=== PATIENT | female | born 1995 | race Caucasian/White ===

== ENCOUNTER 2022-11-16 10:05 | Outpatient (OUT) | payer BC, SELFPAY ==
--- NOTE | 2022-11-16 | US_ITS ---
The [address] [address] Patient Name: CUCO THOMAS MRN: [id number] date: 1995 Sex: F Assigned Patient Location: US Current Patient Location: Accession/Order Number: [id number] Exam Date: 11/16/2022 10:08 Report Date: 11/17/2022 22:05 At the request of: CHEYENNE WHITT Procedure: US OB transvaginal EXAMINATION: US OB transvaginal HISTORY: MISSED MENSES COMPARISON: No relevant comparison available. FINDINGS: GESTATIONAL SAC: Present and normal appearing. YOLK SAC: Present and normal appearing. POLE: Present and normal appearing. CARDIAC: Present. UTERUS: Normal size and appearance. OVARIES: Right: Normal. Left: Contains a 2.7 cm hypoechoic area, likely corpus luteal cyst. CERVIX: 4.1 cm in length and closed. CUL-DE-SAC: Normal. OTHER: None. AGE BY LMP: 8 weeks 5 days RAKEL BY LMP: 06/23/2023 AGE BY US CRL: 8 weeks 0 days RAKEL BY US CRL: 06/28/2023 US/US OB transvaginal IMPRESSION: 1. Single live intrauterine . Electronically authenticated by: BRITTANIE RAMOS Date: 11/17/2022 22:05
== END 2022-11-16 10:06 | disposition home or self-care (01) ==
LOC: US 10:06
PROVIDERS: Visit Provider Obstetrics & Gynecology
DX: Z34.91 Encounter for supervision of normal pregnancy, unspecified, first trimester (principal)
CPT/HCPCS: 76817

== ENCOUNTER 2022-12-04 16:42 | Outpatient (OUT) | payer BC, SELFPAY ==
[2022-12-04 17:04] LABS: Basophils Percent Auto 0.6 % (0.2-2.0); Eosinophils Absolute Auto 0.1 10^3/uL (0.0-0.7); Eosinophils Percent Auto 0.9 % (0.9-7.0); Hematocrit 37.6 % (36.0-48.0); Hemoglobin 12.7 g/dL (12.0-16.0); Immature Granulocytes Abs Auto 0.01 10^3/uL (0.00-0.03); Immature Granulocytes Pct Auto 0.1 % (0.0-0.5); Lymphocytes Absolute Auto 1.6 10^3/uL (1.2-3.8); Lymphocytes Percent Auto 23.9 % (20.5-60.0); Mean Corpuscular HGB Conc 33.8 g/dL (29.9-35.2); Mean Corpuscular Hemoglobin 29.7 pg (26.7-34.0); Mean Corpuscular Volume 87.9 fL (81.0-99.0); Mean Platelet Volume 10.2 fL (9.5-13.5); Monocytes Absolute Auto 0.5 10^3/uL (0.3-0.8); Monocytes Percent Auto 7.5 % (1.7-12.0); Neutrophils Absolute Auto 4.5 10^3/uL (1.4-6.5); Platelet Count 267 10^3/uL (150-450); Red Blood Count 4.28 10^6/uL (4.20-5.40); Red Cell Distribution Width 12.8 % (11.0-15.0); White Blood Count 6.8 10^3/uL (4.0-11.0)
[2022-12-04 17:32] LABS: Estimated Average Glucose 97 mg/dL
[2022-12-04 17:41] LABS: Thyroid Stimulating Hormone 1.333 uIU/mL (0.358-3.740)
[2022-12-06 06:08] LABS: HBsAg Screen Negative (Negative); HCV Ab Non Reactive (Non Reactive); HIV Ab/p24 Ag Screen Non Reactive (Non Reactive); Rubella Antibodies, IgG 2.22 index (Immune >0.99)
[2022-12-06 11:09] LABS: Rapid Plasma Reagin, Quant Non Reactive titer (NonRea<1:1)
== END 2022-12-04 16:43 | disposition home or self-care (01) ==
LOC: LAB 16:43
PROVIDERS: Visit Provider Obstetrics & Gynecology
DX: N92.6 Irregular menstruation, unspecified (principal)
CPT/HCPCS: 36415; 83036; 84443; 85025; 86592; 86762; 86803; 86850; 86900; 86901; 87086; 87340; 87389

== ENCOUNTER 2023-01-16 12:40 | Outpatient (OUT) | payer BC, SELFPAY ==
[2023-01-18 02:07] LABS: Gest. Age on Collection Date 16.3 weeks (.); Gestat. Age Based On As provided (.); Insulin Dep Diabetes No (.); Maternal Age At EDD 29.6 yr (.); OSBR Risk 1 IN 10000 (.); Results Report (.)
== END 2023-01-16 12:41 | disposition home or self-care (01) ==
LOC: LAB 12:41
PROVIDERS: Visit Provider Obstetrics & Gynecology
DX: Z34.92 Encounter for supervision of normal pregnancy, unspecified, second trimester (principal)
CPT/HCPCS: 36415; 82105

== ENCOUNTER 2023-02-14 16:57 | Outpatient (OUT) | payer BC, SELFPAY ==
--- OUTSIDE RECORDS SUMMARY | 2023-02-14 17:00 | XMS_ITS | CCD ---
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 Name Role Phone FANNY GROSS (WIRELESS SALES ASSOCIATE) Unavailable Unavailab le MOSNEAFANNY Griffin (WIRELESS SALES ASSOCIATE) Unavailable Unavailab le IMCA Unavailable Unavailable FANNY GROSS E Unavailable Unavailable Sherri CHEUNG Primary Care Physician AMBAR MCGRAW Admitting Unavailable AMBAR MCGRAW [facility]ending [facility] Ferrari Primary Care Unavailable AMBAR MCGRAW Consulting Unavailable MD Zeny Hayes Attending Unavailable MD Zeny Hayes Admitting Unavailable Gorge Castro Attending Unavailable MD Zeny Hayes Attending Unavailable MD Zeny Hayes Attending Unavailable MD Zeny Hayes Admitting Unavailable CHEYENNE WHITT Attending Unavailable Allergies Allergy Classification Reported Allergen(s) Allergy Type Date of Onset Reaction(s) Facility (2 sources) Sulfonamides (Antibiotic); Translations: [SULFA (SULFONAMIDE ANTIBIOTICS)] Propensity to adverse reactions to drug (disorder) 7 [facility] Repository (7 sources) Sulfonamides (Antibiotic); Translations: [sulfa drugs] Drug allergy [facility] (1 source) Sulfonamides (Antibiotic) Drug allergy (disorder) [facility] Repository Medications Current Medications Medication Drug Class(es) Dates Sig (Normalized) Sig (Original) clotrimazole 10 mg/ml topical cream (6 sources) Azole Antifungal Start: 12-26-2021 clotrimazole Top 1% Crm 1 lenin, Topical, BID, 24 gram, Refill(s) 0, [id number], 175, cm, 12/26/21 13:50:00 EST, Height/Length Dosing, 91.7, kg, 12/26/21 13:50:00 EST, Weight Dosing Start Date: 12/26/21 Status: Ordered Multivitamins with Vitamin B Complex, Vitamin C, Minerals and L-Methylfolate oral capsule (6 sources) Start: 05-27-2020 Multivitamins with Vitamin B Complex, Vitamin C, Minerals and L-Methylfolate oral capsule 1 cap(s), Oral, Daily, 30 cap(s), Refill(s) 0 Start Date: 05/27/20 Status: Ordered Problems Active Problems Problem Classification Problem Date Documented Date Episodic/Chronic Administrative/social admission (6 sources) Administrative reason for encounter 08-16-2020 Episodic Menstrual disorders (6 sources) 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 Nonmalignant breast conditions (14 sources) Pain of breast; Translations: [Mastodynia] Onset: 12-26-2021 Episodic Other nutritional; endocrine; and metabolic disorders (8 sources) Overweight in adulthood with body mass index of 25 or more but less than 30; Translations: [Body mass index (BMI) 29.0-29.9, adult] Onset: 12-26-2021 Episodic Other nutritional; endocrine; and metabolic disorders (6 sources) Body mass index 25-29 - overweight 08-17-2020 Episodic Other and delivery including normal (6 sources) 05-27-2020 Episodic Other screening for suspected conditions (not mental disorders or infectious disease) (4 sources) Encounter for screening for malignant neoplasm of cervix; Translations: [ENC SCREENING MALIG NEOPLASM CERV] Onset: 05-14-2022 Episodic Screening and history of mental health and substance abuse codes (2 sources) H/O: Disorder; Translations: [Personal history of nicotine dependence] Onset: 12-26-2021 Episodic Substance-related disorders (6 sources) Smoker 11-16-2019 Chronic Comment on above: Added secondary to d ocumentation in Social History. Unclassified (1 source) Unknown / UNK(Unknown) Onset: 11-12-2016 Unclassified (18 sources) Patient encounter status 05-27-2020 Past or Other Problems Problem Classification Problem Date Documented Da te Episodic/Chronic Other upper respiratory infections (2 sources) Acute pharyngitis, unspecified; Translations: [Acute pharyngitis, unspecified] Onset: 11-12-2016 Episodic Results Test Name Value Interpretation Reference Range Facility ED Note-Physicianon 11-12-19 ED Note-Physician Basic Information Time Seen: Elena PANDEY Bud Vega 11/04/2022 21:19 Chief Complaint Pt reports she was using an apple aurelia around 1100 and cut left middle finger with the aurelia. lac to middle finger. Pt reports gauze is stuck to lac. Pt reports 7 wks and is UTD on tdap from 3 yrs ago. History of Present Illness 27-year-old female presents ED with complaint of fingertip avulsion of left middle finger. Patient reports that she was using an apple aurelia today at about 1100, caught her tip of her left middle finger. Patient reports partial avulsion of the left middle finger nail as well as avulsion of the soft tissue of the distal left middle finger. Patient reports that she did clean this thoroughly with soap and water and dressed it with a piece of gauze. Patient reports that she went to change the gauze dressing this evening and the gauze was stuck to her finger. At this point, patient became concerned and presented the ED. Patient denies any injury to any other part of her body. Patient is currently 7 weeks . Patient reports that she is up-to-date on her Tdap having received the vaccination 3 years ago. Review of Systems Full 10 system ROS performed. Pt denies symptoms except as noted above in the HPI. Physical Exam Vitals & Measurements T: 36.6 ?C(Oral) HR: 79(Peripheral) RR: 16 BP: 162/85 SpO2: 99% HT: 173 cm WT: 90.6 kg BMI: 30.27 General: Pt is in NAD, nontoxic appearing Skin: Pt skin is warm and dry, no rashes or lesions appreciated HEENT: Atraumatic, normocephalic. Pulmonary: Breathing normally, no respiratory distress Cardiovascular: Peripheral perfusion intact Musculoskeletal: Small avulsion of distal left middle finger as well as the tip of the nail. Nail cuticle is intact. Neurological: Pt is alert and oriented. Psychiatric: Pt is cooperative, communicative, appropriately reactive Medical Decision Making Number and Complexity of Problems Differential Diagnosis: [] [facility] Data External documents reviewed: Not applicable My EKG interpretation: Not applicable My CT interpretation: Not applicable My X-ray interpretation: Not applicable My Ultrasound interpretation: Not applicable Decision rules/scores evaluated: Not applicable Discussed with: Not applicable Treatment and Disposition ED Course: Patient presents ED with complaint of a distal fingertip avulsion. Patient fingertip was soaked in saline, gauze was removed easily after soaking. Was able to use a tourniquet to stop patient oozing of blood, avulsed area was able to be sealed with Dermabond. Due to the extended period of time that the wound is open, I did give patient dose of Keflex as well as a prescription for Keflex. Return precautions to ED were discussed. Follow-up with PCP for wound reevaluation discussed. Patient questions answered. Patient discharged home. Shared decision making: As above Code status: Not addressed during this visit Assessment/Plan Fingertip avulsion (S61.209A: Unspecified open wound of unspecified finger without damage to nail, initial encounter) Orders: cephalexin, 500 mg = 1 cap(s), Cap, Oral, Once, Stop date 11/04/22 22:09:00 EDT, STAT, Start date 11/04/22 22:09:00 EDT, 11/04/22 22:09:00 EDT cephalexin, 500 mg = 1 cap(s), Oral, q12hr, X 7 day(s), # 14 cap(s), Refills(s) 0, Pharmacy: [facility] #[id number], 173, cm, 11/04/22 21:16:00 EDT, Height/Length Dosing, 90.6, kg, 11/04/22 21:16:00 EDT, Weight Dosing Disposition Plan Patient Discharge Condition Stable Discharge Disposition To home Discharge Prescription List Prescriptions cephalexin 500 mg Cap, 500 mg= 1 cap(s), Oral, q12hr Follow-up With When Contact Information Sherri CHEUNG In 3 days 11/07/2022 EDT [address] [facility] [place] [phone] Business (1) Additional Instructions: Call the office of your primary care doctor to arrange for follow-up within the above-stated timeframe. Follow-up with your primary care doctor about this ED visit. You should review your labs, imaging, and diagnoses from this ED visit with your primary care physician. If you were prescribed medications you should discuss possible side-effects and drug interactions with your pharmacist. Call 911 or go to the nearest Emergency Department if you develop any new or worsening symptoms. Patient Education Deep Skin Avulsion Attestation Patient seen and evaluated by the physician assistant operator. Attending physician was present in the emergency department and supervised care. This visit was performed by both the physician and an APC. I performed all aspects of the MDM as documented. This report was transcribed using voice recognition software. Every effort was made to ensure accuracy, however, inadvertently computerized biochemistry teacher mistakes may be present. Appropriate healthcare PPE was used in evaluating this patient. The patient was placed in a mask. The healthcare provider was wearing mask, gloves, and util (more content not included)... [facility] Comment on above: Result Comment: Elec tronically Signed By: Bud Parker PA-C\.br\Date and Time Signed: 11/04/22 22:25 EDT\.br\Electronically Co-Signed By: Gorge Castro MD\.br\Date and Time Co-Signed: 11/11/22 20:46 EDT Discharge Instructionson Discharge Instructions [id number]:12 7 [facility] ED Clinical Summaryon 2022 ED Clinical Summary (Inserted Image. Marylu ble to display) [place] [id number] ED Clinical Summary Person Information Name: CUCO THOMAS [facility] Age: 27 Years : 1995 Sex: Female Language: Nauruan PCP: Sherri CHEUNG MD Marital Status: Single Visit Id: Visit Reason: Finger pain-swelling; Finger laceration; FINGER LACERATION Speciality: Acuity: 4 Enc Type: Emergency Med Service: Emergency Arrival: 11/04/2022 21:10:12 Discharge: 11/04/2022 22:37:51 LOS: 000 01:27 Checkin: 11/04/2022 21:10:12 Checkout: 11/04/2022 22:37:51 Dispo Type: Home (Routine DC) EVENTS: Event Name Event Status Request Date/Time Start Date/Time Complete Date/Time Arrive Complete 11/04/2022 21:10:12 11/04/2022 21:10:12 11/04/2022 21:10:12 Document Home Meds Request 11/04/2022 21:10:12 Triage Complete 11/04/2022 21:10:12 11/04/2022 21:16:45 11/04/2022 21:16:45 Bed Assign Complete 11/04/2022 21:12:37 11/04/2022 21:12:37 11/04/2022 21:12:37 Dr Exam Complete 11/04/2022 21:12:37 11/04/2022 21:19:51 11/04/2022 21:19:51 RN Exam Complete 11/04/2022 21:12:37 11/04/2022 21:17:58 11/04/2022 21:17:58 Patient Care Complete 11/04/2022 21:14:34 11/04/2022 22:15:31 Registration Complete 11/04/2022 21:19:51 11/04/2022 21:29:13 11/04/2022 21:29:13 Reg Complete Request 11/04/2022 21:29:13 Reg Bed Request Complete 11/04/2022 21:29:13 11/04/2022 21:29:13 11/04/2022 21:29:13 Meds Admin Complete 11/04/2022 22:09:23 11/04/2022 22:33:10 Discharge Complete 11/04/2022 22:10:40 11/04/2022 22:37:58 11/04/2022 22:37:58 Transfer Complete 11/04/2022 22:37:58 11/04/2022 22:37:58 11/04/2022 22:37:58 ADDRESS: [address] [place] [id number] PHYS DOC NOTES: MEDICAL INFORMATION: Prescriptions Given: New Medications [facility] #[id number], [address] [place], [place] [id number], [phone] cephalexin (cephalexin 500 mg Cap) 1 Capsules By Mouth every 12 hours for 7 Days. Refills: 0. Medications to Continue with No Changes Other Medications clotrimazole topical (clotrimazole Top 1% Crm) 1 Application Topical 2 times a day. Refills: 0. fluconazole (fluconazole 200 mg Tab) 1 Tablets By Mouth Once. Refills: 0. multivitamin, ( Multivitamins with Vitamin B Complex, Vitamin C, Minerals and L-Methylfolate oral capsule) 1 Capsules By Mouth every day. PATIENT EDUCATION INFORMATION: Instructions: Deep Skin Avulsion Follow up: With: Address: When: Sherri CHEUNG [address] [place] [address] [address], [place] [address] Business (1) In 3 days 11/07/2022 Comments: Call the office of your primary care doctor to arrange for follow-up within the above-stated timeframe. Follow-up with your primary care doctor about this ED visit. You should review your labs, imaging, and diagnoses from this ED visit with your primary care physician. If you were prescribed medications you should discuss possible side-effects and drug interactions with your pharmacist. Call 911 or go to the nearest Emergency Department if you develop any new or worsening symptoms. DIAGNOSIS: Fingertip avulsion [facility] ED Patient Education Noteon 11-05-2022 ED Patient Education Note Dermatology Deep Skin Avulsion A deep skin avulsion is a type of open wound. It often results from a severe injury (trauma) that tears away all layers of the skin or an entire body part. The areas of the body that are most often affected include the face, lips, ears, nose, and fingers. A deep skin avulsion may make structures below the skin become visible. You may be able to see muscle, bone, nerves, and blood vessels. A deep skin avulsion can also damage important structures beneath the skin. These include bones, tendons, nerves, or blood vessels. What are the causes? This condition may be caused by an injury, such as: ? Being crushed. ? Falling against a jagged surface. ? An animal bite. ? A gunshot wound. ? A severe burn. ? Being dragged, such as in a bicycle or motorcycle accident. What are the signs or symptoms? Symptoms of this condition include: ? Pain. ? Numbness. ? Swelling. ? Bleeding, which may be heavy. How is this diagnosed? This condition may be diagnosed with a medical history and physical exam. You may also have X-rays done. How is this treated? Treatment for this condition depends on how large and deep the wound is and where it is located. Treatment usually starts with: ? Stopping the bleeding. ? Washing out the wound with a germ-free (sterile) solution. After initial treatment, the wound may be closed or left open to heal. ? Wounds that are small and clean may be closed with stitches (sutures). ? Wounds that cannot be closed with sutures may be covered with a piece of skin (graft) or your own skin flap. ? Wounds that are hard to close or that may become infected may be left open. These wounds heal over time. You may also be treated with medicine, such as: ? Antibiotic medicine. ? Pain medicine. ? Tetanus shot. Follow these instructions at home: Medicines ? If you were prescribed an antibiotic medicine, take or apply it as told by your health care provider. Do not stop taking or using the antibiotic even if your condition improves. ? Take jqdz-rln-jalzqkk and prescription medicines only as told by your health care provider. ? If you were prescribed a pain medicine, take it 30 minutes or more before you do any wound care, or as told by your health care provider. ? Ask your health care provider if the medicine prescribed to you requires you to avoid driving or using machinery. Wound care ? Follow instructions from your health care provider about how to take care of your wound. Make sure you: ? Wash your hands with soap and water for at least 20 seconds before and after you change your bandage (dressing). If soap and water are not available, use hand supervisor laboratory. ? Change your dressing as told by your health care provider. ? Leave sutures, skin glue, or adhesive strips in place. These skin closures may need to stay in place for 2 weeks or longer. If adhesive strip edges start to loosen and curl up, you may trim the loose edges. Do not remove adhesive strips completely unless your health care provider tells you to do that. ? Clean the wound each day, or as told by your health care provider: ? Wash the wound with mild soap and water. ? Rinse the wound with water to remove all soap. ? Pat the wound dry with a clean towel. Do not rub it. ? Cover the wound with a clean dressing. ? Keep your dressing clean and dry. Do not take baths, swim, use a hot tub, or do anything that would put your wound under water until your health care provider approves. ? Check your wound every day for signs of infection. Check for: ? More redness, swelling, or pain. ? More fluid or blood. ? Warmth. ? Pus or a bad smell. ? Do not scratch or pick at the wound. General instructions ? Raise (elevate) the injured area above the level of your heart while you are sitting or lying down. ? Do not use any products that contain nicotine or tobacco, such as cigarettes, e-cigarettes, and chewing tobacco. These may delay wound healing. If you need help quitting, ask your health care provider. ? Eat a healthy diet to help your wound heal. This includes eating foods rich in protein, vitamin A, and vitamin C. ? Keep all follow-up visits. This is important. Contact a health care provider if: ? You have pain that does not get better with medicine. ? You have any of these signs of infection: ? More redness, swelling, or pain around your wound. ? More fluid or blood coming from your wound. ? A fever. ? You got a tetanus shot and you have swelling, severe pain, redness, or bleeding at the injection site. ? You are nauseous or you vomit. ? You notice something coming out of the wound, such as wood or glass. Get help right away if: ? You have a red streak going away from your wound. ? A wound that was closed breaks open. ? The wound is bleeding, and the bleeding does not stop with gentle pressure. ? You have trouble breathing. ? The wound is on your hand or foot a (more content not included)... [facility] ED Patient Summaryon 023 ED Patient Summary (Inserted Image. Marylu ble to display) [place] [id number] Patient Discharge Instructions Person Information Name: CUCO THOMAS Age: 27 Years Arrival Date: 11/04/2022 21:10:12 Discharge Diagnosis: Fingertip avulsion Primary Care Physician: Sherri CHEUNG MD Provider Information Primary Provider: [facility] [employer] [facility] Person:Elena PANDEY, Bud Ferrari The exam and treatment you received in the Emergency Department were for an urgent problem and are not intended as complete care. It is important that you follow up with a doctor, nurse practitioner, or physician?s assistant operator for ongoing care. If your symptoms become worse or you do not improve as expected and you are unable to reach your usual health care provider, you should return to the Emergency Department. We are available 24 hours a day. CUCO THOMAS has been given the following list of patient education materials, prescriptions and follow-up instructions: Follow-up Instructions: With: Address: When: Sherri JONATAN [address] [place] [address] [address], [place] [address] Business (1) In 3 days 11/07/2022 Comments: Call the office of your primary care doctor to arrange for follow-up within the above-stated timeframe. Follow-up with your primary care doctor about this ED visit. You should review your labs, imaging, and diagnoses from this ED visit with your primary care physician. If you were prescribed medications you should discuss possible side-effects and drug interactions with your pharmacist. Call 911 or go to the nearest Emergency Department if you develop any new or worsening symptoms. In the event that this physician does not participate in your insurance network, please consult with your insurance company to find a nearby participating provider. Patient Education Materials: Deep Skin Avulsion A MESSAGE TO ALL PATIENTS REGARDING OPIOIDS PRESCRIPTION OPIOIDS: WHAT YOU NEED TO KNOW Prescription opioids can be used to help relieve fugbuzfb-az-myhiyw pain and are often prescribed following a surgery or injury, or for certain health conditions. These medications can be an important part of the treatment but also come with serious risks. It is important to work with your healthcare provider to make sure you are getting the safest, most effective care. WHAT ARE THE RISKS AND SIDE EFFECTS OF OPIOID USE? Prescription opioids carry serious risks of addiction and overdose, especially with prolonged use. An opioid overdose, often marked by slowed breathing, can cause sudden . The use of prescription opioids can have a number of side effects as well, even when taken as directed: ? Tolerance?meaning you might need to take more of the medication for the same pain relief ? Physical dependence?meaning you have symptoms of withdrawal when a medication is stopped ? Increased sensitivity to pain ? Constipation ? Nausea, vomiting, and dry mouth ? Sleepiness and dizziness ? Confusion ? Depression ? Low levels of testosterone that can result in lower sex drive, energy, and strength ? Itching and sweating RISKS ARE GREATER WITH: ? History of drug misuse, substance use disorder, or overdose ? Mental health conditions (such as depression or anxiety) ? Sleep apnea ? Older age (65 years and older) ? Avoid alcohol while taking prescription opioids. Also, unless specifically advised by your health care provider, medications to avoid include: ? Benzodiazepines (such as Xanax or Valium) ? Muscle relaxants (such as Soma or Flexeril) ? Hypnotics (such as Ambien or Lunesta) ? Other prescription opioids KNOW YOUR OPTIONS Talk to your health care provider about ways to manage your pain that don?t involve prescription opioids. Some of these options may actually work better and have fewer risks and side effects. Options may include: ? Pain relievers such as acetaminophen, ibuprofen, and naproxen ? Some medication that are also used for depression or seizures ? Physical therapy and exercise ? Cognitive behavioral therapy, a psychological, goal-directed approach, in which patients learn how to modify physical, behavioral, and emotional triggers of pain and stress. IF YOU ARE PRESCRIBED OPIOIDS FOR PAIN: ? Never take opioids in greater amounts or more often than prescribed. ? Follow up with your primary health care provider. o Work together to create a plan on how to manage your pain. o Talk about ways to help manage your pain that don?t involve prescription opioids. o Talk about any and all concerns and side effects. ? Help prevent misuse and abuse o Never sell or share prescription opioids. o Never use another person?s prescription opioids. ? Store prescription opioids in a secure place and out of reach of others (this may include visitors, children, friends, and family). ? Safely (more content not included)... [facility] Consent for Treatmenton 10-13 Consent for Treatment [id number]:127 [facility] PAP ACOG PANEL 2: 21 to 29on 05-21-2022 . . Normal [facility] Comment on above: Performed By: #### [id number] #### [facility] [address] [place] [address] Dr. Jewels Looney Age Gdln ACOG Testing - [facility] Comment on above: Performed By: #### [id number] #### [facility] [address] [place] [address] Dr. Jewels Looney DIAGNOSIS: Comment Normal [facility] Comment on above: Result Comment: NEGA TIVE FOR INTRAEPITHELIAL LESION OR MALIGNANCY. Performed By: #### [id number] #### [facility] [address] [place] [address] Dr. Jewels Looney Methodology: Comment Normal [facility] Comment on above: Result Comment: This liquid based ThinPrep(R) pap test was screened with the use of an image guided system. Performed By: #### [id number] #### [facility] [address] [place] [address] Dr. Jewels Looney Note: Comment Normal [facility] Comment on above: Result Comment: The Pap smear is a screening test designed to aid in the detection of premalignant and malignant conditions of the uterine cervix. It is not a diagnostic procedure and should not be used as the sole means of detecting cervical cancer. Both false-positive and false-negative reports do occur. . Performed By: #### [id number] #### [facility] [address] [place] [address] Dr. Jewels Looney Performed by: Comment Normal [facility] Comment on above: Result Comment: Rosita Haines, Stencil Maker (ASCP) Performed By: #### [id number] #### [facility] [facility] [address] [place] [address] Dr. Jewels Looney Reflex Criteria: Comment [facility] Comment on above: Result Comment: The HPV DNA reflex criteria were not met with this specimen result therefore, no HPV testing was performed. . Performed By: #### [id number] #### [facility] [address] [place] [address] Dr. Jewels Looney Specimen adequacy: Comment Normal [facility] Comment on above: Result Comment: Sati sfactory for evaluation. Endocervical and/or squamous metaplastic cells (endocervical component) are present. Performed By: #### [id number] #### [facility] [address] [place] [address] Dr. Jewels Looney Reminderson 01-19-2022 Reminders - From: Hayes Moura MD To: [facility] - Clinical; Sent: 01/16/2022 15:19:01 EST Show up: 01/16/2022 15:16:00 EST Subject: Ambulatory Reminder Due Date/Time: 01/17/2022 15:15:00 EST Rocio albicans (a type of fungus) presumptively isolated after extended culturing. Awaiting final results. Pt may come after final results in a few days if she is continuing to have symptoms. Results: Date Result Type Ind Result Name 12/26/2021 14:35 EST [facility] POS Fungus Culture Attempted to contact pt regarding provider message below, unable to lvm. If pt call's back please transfer to me to discuss. Spoke with pt regarding provider message below. Advised culture results. Pt states understanding and declines any questions or concerns. Normal [facility] Coding Summary.on 12-31-2021 Coding Summary. [id number] Gh0bWw +PGhlYWQ+TD6LCMNtR87vcHWxy G9LX7gYWN8YMOJLNBZNSV5YAR7 epDV5BKlhX6TvypDn WcbauJAbPM03IMt4YXV8rJjgTT jsiG0qdBIdO6i4FzRaUR84xN81 VTllZGGjHnB7TtIlrgefaCDk M5qvPkVlyIXuZip+PHRhYmxlIH qhGBTsANhkRYXlBzUmpDqkWN2d Bd8vSCNlCHXpoLrqlFSmDtZf z6wzLGGfFIovLL4xiHhtC2RreT Q2VXJaz0l1Ah96bDS+PHRkIHN0 eXoxEEivc192ZhWzm0mcEVI3 oAGaYObhMIH8W88ug0H8PBFnKI DeOMY4oEM2qF2ltJctsitfU2Un kKOvHxX9TJW4pLOimS2pmTbl uneucO6jOpr+K93OWY1EZAYBET 0ICse8Q9VmIgnxaPR+UU80MLZm SQ88dGKyhXJks3kwnNi9FaEh LPVcHWQ5rEaiNUuwp9NyXAEcW4 8elIHlh9N9YXAxtYevnHYaXtBd fCH5cP6dJRpnzqokq9jubfuo Zxazw5shop34gG08U08mEVuePC PrKQW0SDJuFGQsrLoais6jbW1i Ii8+SNuxn6wwx4zivAg6JlIj ICIblzHtxDhcQJG1j2MrRy32H2 AuhHoxh6WcXmw3fz15qJRuw5G2 rYQ1ZGlvYQZwpG8qPPrwOcS9 DPPbAeLojS54gYZfJEqqSy0vcW kgwVjlUH1zNWAdjzllRBKdmY2t FCRhbRCjvFzyEK4kVVIairdt w126ObFmOTJ5NIJejUHnX4BtmC 2zXuWiFHGrXSPjV9PciHOnDXxt E776BKjuJhE9GZYuxkMiG1Fb ZMGgqRcdGoE4p3D2Id7Qs8Mlmp rrSCG3TTtcLBXuTlZfNdFsPeL8 W8RdGid7RUWrcQjnFD3oO4Ji BKRsbxbwmxfvvUJ7YPJbCEWneM 03kAWcNCloOz9mb1M7g203QNNd ZKKdoL19Wz6vtFfwCXMxnBUY qZ9qtrbwl5favdghJqDyONNvJT d2SWz5KPLuiUkqXuHoXMB0PjJ1 PXF0nCXlfP2ooRqokvmwpJ8m Oyc+N14xiR3dAZA7HCQ1uuluJW DfkcPqBF50NS74C0VfMiplePUb bGU+TKFxubMhhClgFB1vUiHw s4hxn0XrYOuuI1XhVSVhJPwqWj r1YYCtJCL6fDO7mS1pUWPnGPui x5H1gLM8K1CzfyHqel3zx2gv GJMtZJykB10qtVQvp1K6XRGygG G0XWWtdMmmYyWksD87Llo+PGNv aLloq3RpIudkh3eht3nxoLs4 ZcHjPOXhotXusBwaKUW7w5JcCo 81R27fIUbhTLXqZAWfQTHuFMPy pJftvk7zaX9sTv9+PGNvbCB3 yKK6fP5gNILtAsF9FFyrG643Bj FsuZFaDbywd6rsg5odhHv2SrHw OFRqsgMwqRqmEEI7e7NiOf37 V90mTJgoGGMpRSGaCLVbLMOskH piqd1xjQ5dZt0+IL5mo8dknj77 yT09aIU+ZMKsBFG7aFrvRItw EOKadL8fGMsaDmP4JBHzFzGdkG 77hRFoBQscHv8prNfppEivUN1x SJAtxysdg331ReEnw8qmDUUe xGUlFCsnDNY4N03ee7H7NIYuGR TnTOP7kXS0gV3peNbsuapvaCKd aSwxknRqeJywRSoySScoG724 IHRvcDsnPlBhdGllbnQgTmFtZT u4X1IbCjs8WRIxgVdzZV3adWEp BBvdNb4apDrniNdhCD2qKWCq yeglo355XcKye4ykZLCweAIpGZ xhWMQ1R49yz5S7BFYjQIVzRHH3 bHN1rT0dhRathucioVWazYru ioPilXkcLIelDCevH758ZGSbtJ trXuRbopZyCDHhlKT4OB55BX23 jLAhp7C0jTR3K5HvFCJtdmtb fipdsWY1PIAaQBAkfA81Ii3vnT hmIu9ePTUdKEU6SNBbzSMoP2On aU0sGrCrNRSoDZCoY3CwnIJu XAbyK068NYkvSfE9ZRZpfjIjO5 QdVQRpnByjTeU1v1Z0Lc3TN3N7 DH88PU59hRWnb3N6rHS3B0Qb XEXnpxfbdcvkzLO3ATJiLRGfjD 82Ek4qeTurCl9mGVJuOJE2SUOs eODhG1YulY3mDlOoRTNaHHYy R9AnzZTmHRftM663TDtzBcH3WP XlsyCvY9OwWWKydHtsUxF4v9M3 An1GYCb3ZX53NV49dCRpd3K3 vYX9M1ChWPWscowizlnauNC9GE VnQGMbqQ83Vq7poGelMq4xXSJk HVW1VHKkqTWzN0VbwM0hQaCd WSDpOYGfR3FzsXVjNGbkV768VZ dpIgX1PCUunsHqD4RzPAQdrCgg IwR2w5D8Gt9TZEKpOO84KAW0 uKA1TJ15CC99I4QsAngiwLHjtA U+PHRhYmxlIHdpZHRoPScxMDAl PtZjyIwxYT5kDt8vLYGsVLDz dTzzwKFrPmDxl5kyPZKnUIvaYT 3zfLyxI2XhdNC3FWApp4e7Zw55 X59qB4PhxKH+IFYamWR5aCG0 lW2vBfBtUiQ8GXvjE690AlPlnN KaHrkyi0nzo9thrZc4BxQ3UQZg qiKmnKdoYQS8g7ByGb30R26w IHdpZHRoPSIxNSUiIHZhbGlnbj 5syW6yVw5+WDWddDZ2fGC5eC0q PeXdUkH2ZMrgX609UoPtpZKh Zrvjp9uqu6pvdEj4HuNfZGTmgn EgeOzoXQD8e7NvNt93N2IclLoi r3ZwAvk3nb96qQZab5Q5aHH6 F1WwBRHhnyhppOEqeAlhQC9tNH MhwruwSVVahG8bDKBjY6m5CbJf TcP1QJruW2DuheQ3GCEtaRIg RCbrLHB5P61ks1L1RESqIILpMJ I4dHO2iU7cvMinrfjzkCWyfOtt fhRkwSbgZNffBKqtM524PWRj zQbiWUQfkC6pMSChmPXxoHqwHV 6oGGFktcuyZcQTSCZJO84CEUKY Y8ZORU4cOtzblJQ+PHRkIHN0 kPywTNzqVHGnqM2aDEWxP9y1Nu HaMsR0QQmjZ4WwROOmqdgcQa55 kD0cUwJjLyG0AHtxH0WhogH6 OTZrdNXsZCwtZMU9S72bn3L7KR KtROYkEHT9dAC0gG8ylMqbspez bGVmdDsgdmVydGljYWwtYWxp Z006OPSouVqtOuO3DlZwHhD5OM U8V8IcPts6XQGciFmxEA4uiHMx OZphDm1zmYwtxEurQD6uADZo xpzpZMSbrW6uFBVkgCEbcZhwBL 8vIYAinyyab852SmLdXAK0MCDj xWAaR5MtmD0oWkAvEQNrFXCy G7XkjCUvRCkmT942RSqzAiB0GM CluxNrK5WyHWYyqIqpMoG8x6A1 Nk2uDYRQEQNnmexyxHV+PHRk OSW1aFzuXUvdWJDzcV7qCZBnB6 g6QnVqFxD4GAzuA9XwYLNwfupi Yk24aD1jBgLmRvI4KGyyT6Fs krB6YICuoFCwZWolHTK4D52ze4 K9CBMoPPJoSNS7jIA0hB7opHck bjogbGVmdDsgdmVydGljYWwt ZFxbA502IYTmeFraXbCudYXwQM wvdGQ+YTRnUZD9wChcMQukMUDg nZ6cAOFrQ6x4QxEvViG1TPpi L7GvIKIreavrCd84tG6jJpKqZb Q9NFxjL7GyelL4IZReqBNyBJjw AXC4C15vp0Z5POTrOMMrZYH1 eZZ1rV8xlMekynlnwYOwpHfils GvfEbsEWdkSJhpD882CKHodZpr LxjzPfOGjv1lNE8sVdctjNU+ LU73wa05X1TrXzthVxh4RNOfZL X2vHJ4zW7rQJHwSLlyh2T6uOW8 Q9PrhnBtzl9ab3ohFNTiGRkd U22inDVzg0O5PNXdzFE9DHLmzE dlFuIfeA56Guw+VVVmyLdow1Wc Jdupx7sai7vgqYi3EvPvJPMk kzBbeUmqKDR7w4BzYt05V36dGS dzJXXgQDLlYFBtLUMtrOdwfl2w tV6jPi3+COHkrXY1vMO3lJ8z BmJjYnF8ZWjpD857JqKvkNBdSq dhe8trf3cynMm4VyNbSXWvxyZa bKzlYCX9b2NrGw35U6JjcGmy v7TfZgl2ju36aTZdj4Q6iTS1Z1 HsWPZaudlhdZCssRdgXN8iLAOq eapeBQVqkQ2hFGJpV4f0MmGg OwI5WXnsO7GrnmD3TNZyoYDbMA HfxUPTrL9mfzvvg8pvfrrxHdLg XIPgYCn8WLv5GFZdeEfnTzFy JES9IhM9MIZ5uUWosQ3keKiyuy lzjB5kYew+HSd1o6gffBWaCY0q vVJ3BU86DV09aYQns8A6yFE7 E4ZoTXTdhtzofxzpzHW1DEPwYA OszA36Mm5jbZslMc3lNUJuHWH4 XJBztRFqB4OceN1jLwFqTWWd WHNoS1WruOQjBMvdG303UXvxXa I2RKIbykNrI9ThTTIoiWrvVtA2 v9B0Ae6XDR05KW83SB20zZPb v0I3hZW4R1IiMRGjfsxfmmebiI N5XUMiOFYuoO28Et4hkKwlRb4w MVHtZAM8DLDhdZOsN4HqyU8w PsKnEUOaFGFbE2AcqJWxTKnuL7 50CKbwWzE3KRTfjoRiZ0ZiEKHa zNijKkK3o9Q7Fo9GIy92HB00 AZ06lDFdb0X5jVS7Y9DdQSEybm stbdnjnEB5CGSeCTOvwQ77Ms5j tSfzJn7iXDRlNIM9VRFmuEKn F1IrjH0bDpZvRHXkQCRnR9DsgH RbJVjeU725JGaySmR9AXXyjcHf D9ZxPWUyhBudPtB6j2W9Ph0S KCdzaxq2G3XbCiblnMG+PC90YW LgGL53uQJwgDGyx4oacMx5BmOg KXMqJPL1xLpvROzlt9YjCJSt Y29s (more content not included)... Normal [facility] Family Medicine Office/Clini c Noteon 12-27-2021 Family Medicine Office/Clinic Note Chief Complaint Rash HPI Staff complaints of Rash on both breast Pt states her daughter had thrush and she is so she believes they are passing it back and forth Onset: 4 days Characteristics:red, itchy slight burning after OTC tried:Baking soda wash, coconut oil Health Maintenance: Pap:Due Last Labs: PHQ: Negative History of Present Illness Cuco is a 26-year-old female who presents today with a bilateral breast rash. - The patient believes her and her daughter are passing thrush back and forth with . - Rash has improved since 12/22/2021 when it began. - She has a burning sensation on both breasts that is on her nipple and spreads out. - The right side is worse than her left. - Her daughter is on antifungal now. - The first round did not cure her thrush. - Started out as a diaper rash and didn't realize it was thrush until she took her to convenient care a few weeks ago. - is going really well. - for 11 months. - Possible the baby may have gotten thrush from using bottles that are not sterilized. - Denies any fever, chills, nausea, or vomiting. - Denies any engorgement of the breasts. - Denies depressed mood and suicidal or homicidal ideation. Review of Systems PHQ Score Initial Depression Screen Score: 0 Negative except as stated in HPI. Physical Exam Vitals & Measurements T: 36.0 ?C(Temporal Artery) HR: 67(Peripheral) RR: 16 BP: 112/72 SpO2: 98% HT: 69 in HT: 175 cm WT: 91.7 kg WT: 201.74 lb BMI: 29.94 General: Patient is alert and oriented x3. She is not in cardiopulmonary distress. Normal affect. Well groomed. Respiratory: Equal bilateral aeration. Clear to auscultations bilaterally. No adventitious breath sounds including no wheezing, rhonchi, or rales. Cardiovascular: Regular rate and rhythm. S1, S2 heard. No murmurs, rubs, or gallops. Breast: Both breasts have lesions but there is ones a few centimeters away from the nipple areas that the patient attributes to probably clawing from baby or accidental bites. She has not scratched those areas herself. Both nipples look symmetrical. Negative for discharge or blood discharge. Breast milk typical in color. No masses were palpated in the bilateral breasts. No tenderness to palpation. Assessment/Plan 1. Nipple pain (N64.4: Mastodynia) - Ordered fluid culture of expressed milk from both breasts. - Will provide topical antifungal. - I have ordered clotrimazole 1%, 3 times per day. - Advised on proper topical antifungal use prior to and after . - Advised her to follow up in 4 weeks if symptoms have not improved. 2. Former smoker (Z87.891: Personal history of nicotine dependence) - Encouraged patient to continue to refrain from smoking. 3. BMI 29.0-29.9,adult (Z68.29: Body mass index [BMI] 29.0-29.9, adult) - Educated patient on healthy fitness, lifestyle and nutrition practices. Documentation services were performed after patient or guardian consented to allow Jef Tobar to record this visit. JEAN CARLOS compensation/benefits specialist and provider reviewed before signing. Completed by: Rosa Isela Rouse/Angeli Ignacio. Pated by Priyanka Mosley, Quality Sem Manager. Follow-up No qualifying data available Problem List/Past Medical History Ongoing Amenorrhea BMI 25.0-25.9,adult Breast pain Dietary counseling Encounter for completion of form with patient Exercise counseling Nipple pain Overweight with body mass index (BMI) of 26 to 26.9 in adult Visit for preventive health examination Historical Smoker Procedure/Surgical History Excision of adenoid (1998). Medications clotrimazole Top 1% Crm, 1 lenin, Topical, BID Multivitamins with Vitamin B Complex, Vitamin C, Minerals and L-Methylfolate oral capsule, 1 cap(s), Oral, Daily, Not taking Allergies sulfa drugs (hives) Social History Alcohol - Denies Alcohol Use, 08/16/2020 Past, Beer, Wine, Liquor, 1-2 times per week, Previous treatment: None. Alcohol use interferes with work or home: No. Drinks more than intended: No. Others hurt by drinking: No. Ready to change: No. Household alcohol concerns: No., 12/26/2021 Sexual Sexually active: Yes., 09/19/2018 Substance Abuse - Denies Substance Abuse, 08/02/2018 Household substance abuse concerns: No., 08/16/2020 Tobacco - Denies Tobacco Use, 08/16/2020 Former smoker, quit more than 30 days ago Tobacco Use:. Never Smokeless Tobacco Use:. Cigarettes, Started age 21.0 Years. Stopped age 21 Years. Household tobacco concerns: No., 12/26/2021 Family History Primary malignant neoplasm of female genital organ: Grandparent. Immunizations Vaccine Date Status Comments influenza virus vaccine, inactivated - Not Given Postpone due to refusal SARS-CoV-2 (COVID-19) mRNA-1273 vaccine 04/16/2020 Recorded influenza virus vaccine, inactivated 11/16/2019 Given diphtheria/pertussis, acel/tetanus ad (more content not included)... [facility] Comment on above: Result Comment: Elec tronically Signed By: Hayes M. Gudimella MD\.br\Date and Time Signed: 12/27/21 15:46 EST\.br\Electronically Co-Signed By: Priyanka Mosley\.br\Date and Time Co-Signed: 12/26/21 22:49 EST RENETTAJosefa 01-02-2017 CNOV Office Visit (AGEXPHUD) [facility] ([id number]) 1995 FDate Time Provider Uocxerqlde80/22/17 2:30 PM FANNY GROSS (DESMOND) AGEXPHUD During your visit today, we recorded the following information about you: Temperature Pulse Blood pressure Weight 98.4 degrees 79/minute 125/75 69.5 kg Height 1.727 Serenity Gross CNP 01/02/2017 2:46 PM SignedPatient is a 21 year old female presenting with sinus complaint. The history isprovided by the patient.Sinus ProblemThis is a new problem. The current episode started 1 to 4 weeks ago (2 weeksago had a cold, congestion, cough, muffled ears, sore throat. Symptoms havemainly resolved, but presents today with increased sinus pressure.). Theproblem occurs constantly. The problem has been gradually worsening. Associatedsymptoms include congestion, coughing and headaches (frontal sinus pressure).Pertinent negatives include no abdominal pain, chest pain, chills, fever,nausea, rash, sore throat or vomiting. Treatments tried: Mucinex for 7 days.The treatment provided no relief.Review of SystemsConstitutional: Negative for chills, fever and malaise/fatigue.HENT: Positive for congestion. Negative for ear pain and sore throat.Eyes: Negative.Respiratory: Positive for cough. Negative for shortness of breath and wheezing.Cardiovascular: Negative for chest pain and palpitations.Gastrointesti nal: Negative for abdominal pain, diarrhea, nausea and vomiting.Skin: Negative for rash.Neurological: Positive for headaches (frontal sinus pressure).Physical ExamConstitutional: She is oriented to person, place, and time and well-developed,well-nouris hed, and in no distress. Vital signs are normal.HENT:Head: Normocephalic and atraumatic.Right Ear: Hearing, external ear and ear canal normal. A middle ear effusion ispresent.Left Ear: Hearing, external ear and ear canal normal. A middle ear effusion ispresent.Nose: Right sinus exhibits frontal sinus tenderness. Right sinus exhibits nomaxillary sinus tenderness. Left sinus exhibits frontal sinus tenderness. Leftsinus exhibits no maxillary sinus tenderness.Mouth/Throat: Uvula is midline, oropharynx is clear and moist and mucousmembranes are normal. No oropharyngeal exudate, posterior oropharyngeal edema,posterior oropharyngeal erythema or tonsillar abscesses.Eyes: Conjunctivae, EOM and lids are normal. Pupils are equal, round, andreactive to light. Right eye exhibits no discharge. Left eye exhibits nodischarge.Cardiovascular : Normal rate, regular rhythm, S1 normal, S2 normal and normalheart sounds. Exam reveals no gallop and no friction rub.No murmur heard.Pulmonary/Chest: Effort normal and breath sounds normal. She has no wheezes.She has no rhonchi. She has no rales.Lymphadenopathy: Head (right side): No submental, no submandibular, no tonsillar, nopreauricular and no posterior auricular adenopathy present. Head (left side): No submental, no submandibular, no tonsillar, nopreauricular and no posterior auricular adenopathy present. She has no cervical adenopathy.Neurological: She is oriented to person, place, and time.Skin: Skin is warm, dry and intact.Psychiatric: Mood, memory, affect and judgment normal.Nursing note and vitals reviewed.BP 125/75 Pulse 79 Temp (Src) 98.4 (Temporal Artery) Ht 5' 8ANDquot;(1.73m) Wt 153 lb 3.2 oz (69.5kg) SpO2 100% BMI 23.30 kg/(m2).-I have reviewed and updated with the patient: allergies, VS, currentmedications, Past Medical History,Past Surgical History,Past Family MedicalHistory, Past Social History.-Patient education provided today.-Discussed with patient medications that are indicated and how to use themedications and what the potential side effects are.- Follow up with PCP in 2-3 days if symptoms progress- Report to ED with any worsening symptoms or life-threatening concerns- Warning signs of worsening condition explained to patient- Patient left in stable condition after questions answered and patientverbalizes understandingASSESSMENT/PL AN:1. Acute non-recurrent frontal sinusitis - ICD9: 461.1, ICD10: J01.10- Will begin treatment with as per antibiotic as written, see orders- The patient should also be given OTC decongestants prn, OTC cough and coldmeds as needed, warm salt water gargles, throat lozenges and/or OTC throatspray as needed and nasal saline gtts and suction prn for the first 5-7 days oftreatment.- Supportive care with plenty of fluids, rest, and analgesia prn.- Follow up in 3-5 days if symptoms persist or worsen.- AMOXICILLIN 875 MG-POTASSIUM CLAVULANATE 125 MG TABLETFanny Gross, CNPFanny Gross CNP 01/02/2017 2:39 PM SignedBP 125/75 Pulse 79 Temp (Src) 98.4 (Temporal Artery) Ht 5' 8ANDquot;(1.73m) Wt 153 lb 3.2 oz (69.5kg) SpO2 100% BMI 23.30 kg/(m2).-I have reviewed and updated with the patient: allergies, VS, currentmedications, Past Medical History,Past Surgical History,Past Family MedicalHistory, Past Social History.-Patient education provided today.-Discussed with patient medications that are indicated and how to use themedications and what the potential side effects are.- Follow up with PCP in 2-3 days if symptoms progress- Report to ED with any worsening symptoms or life-threatening concerns- Warning signs of worsening condition explained to patient- Patient left in stable condition after questions answered and patientverbalizes understandingASSESSMENT/PL AN:1. Acute non-recurrent frontal sinusitis - ICD9: 461.1, ICD10: J01.10- Will begin treatment with as per antibiotic as written, see orders- The patient should also be given OTC decongestants prn, OTC cough and coldmeds as needed, warm salt water gargles, throat lozenges and/or OTC throatspray as needed and nasal saline gtts and suction prn for the first 5-7 days oftreatment.- Supportive care with plenty of fluids, rest, and analgesia prn.- Follow up in 3-5 days if symptoms persist or worsen.- AMOXICILLIN 875 MG-POTASSIUM CLAVULANATE 125 MG TABLETFanny Gross CNPPatient education: Sinusitis in adults (The Basics)What is sinusitis? ? Sinusitis is a condition that can cause a stuffy nose,pain in the face, and yellow or green discharge (mucus) from the nose. Thesinuses are hollow areas in the bones of the face. They have a thin lining thatnormally makes a small amount of mucus. When this lining gets infected, itswells and makes extra mucus. This causes symptoms.Sinusitis can occur when a person gets sick with a cold. The germs causing thecold can also infect the sinuses. Many times, a person feels like his or hercold is getting better. But then he or she gets sinusitis and begins to feelsick again.What are the symptoms of sinusitis? ? Common symptoms of sinusitis include:?Stuffy or blocked nose?Thick yellow or green discharge from the nose?Pain in the teeth?Pain or pressure in the face ? This often feels worse when a person bendsforward.People with sinusitis can also have other symptoms that include:?Fever?Cough?Troub le smelling?Ear pressure or fullness?Headache?Bad breath?Feeling tiredMost of the time, symptoms start to improve in 7 to 10 days.Should I see a doctor or nurse? ? See your doctor or nurse if your symptomslast more than 10 days, or if your symptoms get better at first but then getworse.Sometimes, sinusitis can lead to serious problems. See your doctor or nurseright away (do not wait 10 days) if you have:?Fever higher than 102?F (38.9?C)?Sudden and severe pain in the face and head?Trouble seeing or seeing double?Trouble thinking clearly?Swelling or redness around one or both eyes?A stiff neckIs there anything I can do on my own to feel better? ? Yes. To reduce yoursymptoms, you can:?Take an optr-vfu-htynmyu pain reliever to reduce the pain?Rinse your nose and sinuses with salt water a few times a day ? Ask yourdoctor or nurse about the best way to do this.? Increase fluids to keep mucus thin. Drink a glass of water every waking hour.? Breathe moist air from a humidifier or hot shower.? Avoid exposure to smoke.Antihistamines do not improve symptoms of sinusitis. Common antihistaminesinclude diphenhydramine (sample brand name: Benadryl), chlorpheniramine (samplebrand name: Chlor-Trimeton), loratadine (sample brand name: Claritin), andcetirizine (sample brand name: Zyrtec). They can treat allergies, but not sinusinfections, and could increase your discomfort by drying the lining of yournose and sinuses, or making you tired.Your doctor might also prescribe a steroid nose spray to reduce the swelling inyour nose. (Steroid nose sprays do not contain the same steroids that athletestake to build muscle.)How is sinusitis treated? ? Most of the time, sinusitis does not need to betreated with antibiotic medicines. This is because most sinusitis is caused byviruses ? not bacteria ? and antibiotics do not kill viruses. Many people getover sinus infections without antibiotics.Some people with sinusitis do need treatment with antibiotics. If your symptomshave not improved after 10 days, ask your doctor if you should takeantibiotics. Your doctor might recommend that you wait 1 more week to see ifyour symptoms improve. But if you have symptoms such as a fever or a lot ofpain, he or she might prescribe antibiotics. It is important to follow yourdoctor's instructions about taking your antibiotics.What if my symptoms do not get better? ? If your symptoms do not get better,talk with your doctor or nurse. He or she might order tests to figure out whyyou still have symptoms. These can include:?CT scan or other imaging tests ? Imaging tests create pictures of the insideof the body.?A test to look inside the sinuses ? For this test, a doctor puts a thin tubewith a camera on the end into the nose and up into the sinuses.Some people get a lot of sinus infections or have symptoms that last at least 3months. These people can have a different type of sinusitis calledANDquot;chronic sinusitis.ANDquot; Chronic sinusitis can be caused by differentthings. For example, some people have growths in their nose or sinuses that arecalled ANDquot;polyps.ANDquot; Other people have allergies that cause theirsymptoms.Chronic sinusitis can be treated in different ways. If you have chronicsinusitis, talk with your doctorThis topic retrieved from UpToDatePatient education: Rinsing out your nose with salt water (The Basics)Why should I rinse my nose with salt water? ? Rinsing out your nose with saltwater can wash dirt and mucus from your nose. It also helps wash away thingsthat trigger allergies, such as pollen, mold spores, and dust.Rinsing out your nose with salt water is also called ?nasal irrigation.?Your doctor might recommend that you rinse out your nose with salt water whenyou have:?A stuffy or runny nose from a cold or allergies?Post-nasal drip ? This happens when mucus from your nose drips down the backof your throat.?Sinusitis ? This condition causes mucus, a stuffy nose, and pain in the face.How do I make the salt water? ? To make the salt water solution, follow thesesteps:1) Find a clean, 1-quart glass jar with a lid. Fill it with distilled water ortap water that has been boiled and cooled. This is important because a fewpeople have gotten serious infections from using tap water that was not clean.These infections are very rare, but it?s better to be absolutely safe.2) You can buy premixed packets for making the solution at a drug store or youcan make your own. To make your own, use 1 teaspoon of baking soda and 1 to 1.5teaspoons of salt. Use pickling or prabha salt, which is very pure anddissolves easily. Do not use regular table salt because it contains otherchemicals besides salt.3) Mix and store at room temperature for up to 1 week. Throw out any salt waterthat you don?t use within a week.How do I get the solution inside my nose? ? There are several products you canuse to squirt the solution into your nose. These are made for this purpose.Some examples include:?A squeeze bottle (sample brand name: Flo Med Sinus Rinse)?A neti pot (sample brand name: Flo Med NasaFlo Neti Pot) ? This is a smallpot with a long spout, similar to a teapot .?A nasal irrigation syringe (sample brand name: Nasaline) ? Use a 60 cc (2ounce) syringe, not a bulb syringe for a baby.?A pulsating irrigation device (sample brand names: [employer] HydroPulse,Water[employer]ramid [employer] Sinusense Water Pulsator) ? These are battery-powered devices thatsend a gentle pulse of water into the nose. Make sure to get one with a nasalirrigation tip.If you are using a syringe, pour the amount of fluid you plan to use into aclean bowl, or pour it directly into the squeeze bottle or neti pot. DO NOT putyour used syringe back into the storage container. If you like, you can warmthe solution slightly in the microwave. This might make the rinsing processmore comfortable. But be sure that the solution is NOT HOT.Bend over the sink with your head turned slightly to one side and squirt thesolution into the nostril that is higher. You can also do this in the shower.Aim the stream toward the back of your head, NOT the top of your head. Keepyour mouth open. The solution should flow into one nostril and out the other.It?s fine if you swallow a small amount. You might feel a little burningsensation the first few times you rinse out your nose. This usually goes awayafter you get used to it.Once all the solution has run out of your nose, blow your nose gently. Somesalt water might drain out of your nose over the next few minutes if you bendover. If some salt water seems to get trapped up in your sinuses, you can bendforward and look upwards toward one side, as if you are ?looking under thesink.? Do this looking in one direction, then stand up straight, then in theother direction. When you stand up, some extra salt water might drain out.Clean your device after each use, either with boiling water or as instructed bythe makers of the device. Let it air-dry or dry it with a clean towel.How often should I rinse out my nose with salt water? ? Some people rinse outtheir nose every day. Others rinse only when they have symptoms. You can safelyrinse out your nose a few times per day.Doctors recommend daily rinsing for people with sinusitis that lasts more than3 months (called ?chronic sinusitis?.)If you use nasal sprays to treat your symptoms, use them after your rinse outyour nose.This topic retrieved from UpToDateReferring Provider: SELF [[id number]]Allergies As of Date: 01/02/2017 Noted Allergy ReactionSULFA (SULFONAMIDE ANTIBIOTICS) 11/12/2016 4 - HivesDate Reviewed: 01/02/2017Reviewed by: Fanny ([facility]) [place] - Fully AssessedReason for Visit: Sinus Problem [99] Cmt: patient c/o sinus issues x 3 weeks, coughing up green mucus, sinus pressure, headaches. swollen glands in back of throat.Reason For Visit History RecordedPrimary Visit Diagnosis:Acute non-recurrent frontal sinusitis [J01.10]Order(s):amoxicill in-clavulanic acid (AUGMENTIN) 875-125 mg per tabletTake 1 tablet by mouth every 12 hours for 10 days.Disp: 20 tabletRfl: 0Prescriptions as of 01/02/2017 Sig: AMOXICILLIN 875 MG-POTASSIUM * Take 1 tablet by mouth every * LIDOCAINE 2 % MUCOSAL SOLUTION Take 5 mL by mouth four times*Medication notes this encounter LIDOCAINE 2 % MUCOSAL SOLUTION >> Atiya Torres CMA 01/02/2017 2:25 PM >> ATIYA TORRES CMA Wed Jan 02, 2017 2:25 PM Not takingProblem List As Of Date: 01/02/2017(None) Other instructions from your clinician: BP 125/75 Pulse 79 Temp (Src) 98.4 (Temporal Artery) Ht 5' 8 (1.73m) Wt 153 lb 3.2 oz (69.5kg) SpO2 100% BMI 23.30 kg/(m2). -I have reviewed and updated with the patient: allergies, VS, current medications, Past Medical History,Past Surgical History,Past Family Medical History, Past Social History. -Patient education provided today. -Discussed with patient medications that are indicated and how to use the medications and what the potential side effects are. - Follow up with PCP in 2-3 days if symptoms progress - Report to ED with any worsening symptoms or life-threatening concerns - Warning signs of worsening condition explained to patient - Patient left in stable condition after questions answered and patient verbalizes understanding ASSESSMENT/PLAN: 1. Acute non-recurrent frontal sinusitis - ICD9: 461.1, ICD10: J01.10 - Will begin treatment with as per antibiotic as written, see orders - The patient should also be given OTC decongestants prn, OTC cough and cold meds as needed, warm salt water gargles, throat lozenges and/or OTC throat spray as needed and nasal saline gtts and suction prn for the first 5-7 days of treatment. - Supportive care with plenty of fluids, rest, and analgesia prn. - Follow up in 3-5 days if symptoms persist or worsen. - AMOXICILLIN 875 MG-POTASSIUM CLAVULANATE 125 MG TABLET Fanny Gross CNP Patient education: Sinusitis in adults (The Basics) What is sinusitis? ? Sinusitis is a condition that can cause a stuffy nose, pain in the face, and yellow or green discharge (mucus) from the nose. The sinuses are hollow areas in the bones of the face. They have a thin lining that normally makes a small amount of mucus. When this lining gets infected, it swells and makes extra mucus. This causes symptoms. Sinusitis can occur when a person gets sick with a cold. The germs causing the cold can also infect the sinuses. Many times, a person feels like his or her cold is getting better. But then he or she gets sinusitis and begins to feel sick again. What are the symptoms of sinusitis? ? Common symptoms of sinusitis include: ?Stuffy or blocked nose ?Thick yellow or green discharge from the nose ?Pain in the teeth ?Pain or pressure in the face ? This often feels worse when a person bends forward. People with sinusitis can also have other symptoms that include: ?Fever ?Cough ?Trouble smelling ?Ear pressure or fullness ?Headache ?Bad breath ?Feeling tired Most of the time, symptoms start to improve in 7 to 10 days. Should I see a doctor or nurse? ? See your doctor or nurse if your symptoms last more than 10 days, or if your symptoms get better at first but then get worse. Sometimes, sinusitis can lead to serious problems. See your doctor or nurse right away (do not wait 10 days) if you have: ?Fever higher than 102?F (38.9?C) ?Sudden and severe pain in the face and head ?Trouble seeing or seeing double ?Trouble thinking clearly ?Swelling or redness around one or both eyes ?A stiff neck Is there anything I can do on my own to feel better? ? Yes. To reduce your symptoms, you can: ?Take an [id number] pain reliever to reduce the pain ?Rinse your nose and sinuses with salt water a few times a day ? Ask your doctor or nurse about the best way to do this. ? Increase fluids to keep mucus thin. Drink a glass of water every waking hour. ? Breathe moist air from a humidifier or hot shower. ? Avoid exposure to smoke. Antihistamines do not improve symptoms of sinusitis. Common antihistamines include diphenhydramine (sample brand name: Benadryl), chlorpheniramine (sample brand name: Chlor-Trimeton), loratadine (sample brand name: Claritin), and cetirizine (sample brand name: Zyrtec). They can treat allergies, but not sinus infections, and could increase your discomfort by drying the lining of your nose and sinuses, or making you tired. Your doctor might also prescribe a steroid nose spray to reduce the swelling in your nose. (Steroid nose sprays do not contain the same steroids that athletes take to build muscle.) How is sinusitis treated? ? Most of the time, sinusitis does not need to be treated with antibiotic medicines. This is because most sinusitis is caused by viruses ? not bacteria ? and antibiotics do not kill viruses. Many people get over sinus infections without antibiotics. Some people with sinusitis do need treatment with antibiotics. If your symptoms have not improved after 10 days, ask your doctor if you should take antibiotics. Your doctor might recommend that you wait 1 more week to see if your symptoms improve. But if you have symptoms such as a fever or a lot of pain, he or she might prescribe antibiotics. It is important to follow your doctor's instructions about taking your antibiotics. What if my symptoms do not get better? ? If your symptoms do not get better, talk with your doctor or nurse. He or she might order tests to figure out why you still have symptoms. These can include: ?CT scan or other imaging tests ? Imaging tests create pictures of the inside of the body. ?A test to look inside the sinuses ? For this test, a doctor puts a thin tube with a camera on the end into the nose and up into the sinuses. Some people get a lot of sinus infections or have symptoms that last at least 3 months. These people can have a different type of sinusitis called chronic sinusitis. Chronic sinusitis can be caused by different things. For example, some people have growths in their nose or sinuses that are called polyps. Other people have allergies that cause their symptoms. Chronic sinusitis can be treated in different ways. If you have chronic sinusitis, talk with your doctor This topic retrieved from [facility] Patient education: Rinsing out your nose with salt water (The Basics) Why should I rinse my nose with salt water? ? Rinsing out your nose with salt water can wash dirt and mucus from your nose. It also helps wash away things that trigger allergies, such as pollen, mold spores, and dust. Rinsing out your nose with salt water is also called ?nasal irrigation.? Your doctor might recommend that you rinse out your nose with salt water when you have: ?A stuffy or runny nose from a cold or allergies ?Post-nasal drip ? This happens when mucus from your nose drips down the back of your throat. ?Sinusitis ? This condition causes mucus, a stuffy nose, and pain in the face. How do I make the salt water? ? To make the salt water solution, follow these steps: 1) Find a clean, 1-quart glass jar with a lid. Fill it with distilled water or tap water that has been boiled and cooled. This is important because a few people have gotten serious infections from using tap water that was not clean. These infections are very rare, but it?s better to be absolutely safe. 2) You can buy premixed packets for making the solution at a drug store or you can make your own. To make your own, use 1 teaspoon of baking soda and 1 to 1.5 teaspoons of salt. Use pickling or prabha salt, which is very pure and dissolves easily. Do not use regular table salt because it contains other chemicals besides salt. 3) Mix and store at room temperature for up to 1 week. Throw out any salt water that you don?t use within a week. How do I get the solution inside my nose? ? There are several products you can use to squirt the solution into your nose. These are made for this purpose. Some examples include: ?A squeeze bottle (sample brand name: Flo Med Sinus Rinse) ?A neti pot (sample brand name: Flo Med NasaFlo Neti Pot) ? This is a small pot with a long spout, similar to a teapot . ?A nasal irrigation syringe (sample brand name: Nasaline) ? Use a 60 cc (2 ounce) syringe, not a bulb syringe for a baby. ?A pulsating irrigation device (sample brand names: LineHopan HydroPulse, WaterPyramid Screening Technology Sinusense Water Pulsator) ? These are battery-powered devices that send a gentle pulse of water into the nose. Make sure to get one with a nasal irrigation tip. If you are using a syringe, pour the amount of fluid you plan to use into a clean bowl, or pour it directly into the squeeze bottle or neti pot. DO NOT put your used syringe back into the storage container. If you like, you can warm the solution slightly in the microwave. This might make the rinsing process more comfortable. But be sure that the solution is NOT HOT. Bend over the sink with your head turned slightly to one side and squirt the solution into the nostril that is higher. You can also do this in the shower. Aim the stream toward the back of your head, NOT the top of your head. Keep your mouth open. The solution should flow into one nostril and out the other. It?s fine if you swallow a small amount. You might feel a little burning sensation the first few times you rinse out your nose. This usually goes away after you get used to it. Once all the solution has run out of your nose, blow your nose gently. Some salt water might drain out of your nose over the next few minutes if you bend over. If some salt water seems to get trapped up in your sinuses, you can bend forward and look upwards toward one side, as if you are ?looking under the sink.? Do this looking in one direction, then stand up straight, then in the other direction. When you stand up, some extra salt water might drain out. Clean your device after each use, either with boiling water or as instructed by the makers of the device. Let it air-dry or dry it with a clean towel. How often should I rinse out my nose with salt water? ? Some people rinse out their nose every day. Others rinse only when they have symptoms. You can safely rinse out your nose a few times per day. Doctors recommend daily rinsing for people with sinusitis that lasts more than 3 months (called ?chronic sinusitis?.) If you use nasal sprays to treat your symptoms, use them after your rinse out your nose. This topic retrieved from UpToDatePrescriptions ordered this encounter Disp Refills Start End AMOXICILLIN 875 MG-POTASSIUM CLAVULA* 20 t* 0 01/02/2017 01/12/2017 Route: ORAL Sig: Take 1 tablet by mouth every 12 hours for 10 days.Disposition: Return if symptoms worsen or fail to improve.Follow-up and Disposition History RecordedEncounter Number: [id number] Status:Closed by FANNY GROSS CNP on 01/02/17 [facility] PROGRESSon 01-02-2017 PROGRESS HNO ID: [id number] thor: Fanny (Desmond) Arleyervice: (none)Author Type: Nurse PractitionerType: Progress NotesFiled: 01/02/2017 2:46 PMNote Text:Patient is a 21 year old female presenting with sinus complaint. Thehistory is provided by the patient.Sinus ProblemThis is a new problem. The current episode started 1 to 4 weeks ago (2weeks ago had a cold, congestion, cough, muffled ears, sore throat.Symptoms have mainly resolved, but presents today with increased sinuspressure.). The problem occurs constantly. The problem has been graduallyworsening. Associated symptoms include congestion, coughing and headaches(frontal sinus pressure). Pertinent negatives include no abdominal pain,chest pain, chills, fever, nausea, rash, sore throat or vomiting.Treatments tried: Mucinex for 7 days. The treatment provided no relief.Review of SystemsConstitutional: Negative for chills, fever and malaise/fatigue.HENT: Positive for congestion. Negative for ear pain and sore throat.Eyes: Negative.Respiratory: Positive for cough. Negative for shortness of breath andwheezing.Cardiovascular : Negative for chest pain and palpitations.Gastrointesti nal: Negative for abdominal pain, diarrhea, nausea andvomiting.Skin: Negative for rash.Neurological: Positive for headaches (frontal sinus pressure).Physical ExamConstitutional: She is oriented to person, place, and time andwell-developed, well-nourished, and in no distress. Vital signs arenormal.HENT:Head: Normocephalic and atraumatic.Right Ear: Hearing, external ear and ear canal normal. A middle eareffusion is present.Left Ear: Hearing, external ear and ear canal normal. A middle eareffusion is present.Nose: Right sinus exhibits frontal sinus tenderness. Right sinus exhibitsno maxillary sinus tenderness. Left sinus exhibits frontal sinustenderness. Left sinus exhibits no maxillary sinus tenderness.Mouth/Throat: Uvula is midline, oropharynx is clear and moist and mucousmembranes are normal. No oropharyngeal exudate, posterior oropharyngealedema, posterior oropharyngeal erythema or tonsillar abscesses.Eyes: Conjunctivae, EOM and lids are normal. Pupils are equal, round, andreactive to light. Right eye exhibits no discharge. Left eye exhibits nodischarge.Cardiovascular : Normal rate, regular rhythm, S1 normal, S2 normal andnormal heart sounds. Exam reveals no gallop and no friction rub.No murmur heard.Pulmonary/Chest: Effort normal and breath sounds normal. She has nowheezes. She has no rhonchi. She has no rales.Lymphadenopathy: Head (right side): No submental, no submandibular, no tonsillar, nopreauricular and no posterior auricular adenopathy present. Head (left side): No submental, no submandibular, no tonsillar, nopreauricular and no posterior auricular adenopathy present. She has no cervical adenopathy.Neurological: She is oriented to person, place, and time.Skin: Skin is warm, dry and intact.Psychiatric: Mood, memory, affect and judgment normal.Nursing note and vitals reviewed.BP 125/75 Pulse 79 Temp (Src) 98.4 (Temporal Artery) Ht 5' 8 (1.73m) Wt 153 lb 3.2 oz (69.5kg) SpO2 100% BMI 23.30 kg/(m2).-I have reviewed and updated with the patient: allergies, VS, currentmedications, Past Medical History,Past Surgical History,Past FamilyMedical History, Past Social History.-Patient education provided today.-Discussed with patient medications that are indicated and how to use themedications and what the potential side effects are.- Follow up with PCP in 2-3 days if symptoms progress- Report to ED with any worsening symptoms or life-threatening concerns- Warning signs of worsening condition explained to patient- Patient left in stable condition after questions answered and patientverbalizes understandingASSESSMENT/PL AN:1. Acute non-recurrent frontal sinusitis - ICD9: 461.1, ICD10: J01.10- Will begin treatment with as per antibiotic as written, see orders- The patient should also be given OTC decongestants prn, OTC cough andcold meds as needed, warm salt water gargles, throat lozenges and/or OTCthroat spray as needed and nasal saline gtts and suction prn for the first5-7 days of treatment.- Supportive care with plenty of fluids, rest, and analgesia prn.- Follow up in 3-5 days if symptoms persist or worsen.- AMOXICILLIN 875 MG-POTASSIUM CLAVULANATE 125 MG TABLETFanny Gross CNP [facility] CNOVon 11-12-2016 [facility] Office Visit (AGEXPHUD) CUCO DEVLIN ([id number]) 1995 [facility] Time Provider Ahfbppqcan27/2/17 8:15 AM FANNY GROSS (DESMOND) AGEXPHUD During your visit today, we recorded the following information about you: Temperature Pulse Respiration Blood pressure 98.3 degrees 80/minute 16/minute 131/88 Weight Height 68.8 kg 1.727 Serenity Gross CNP 11/12/2016 8:53 AM AddendumBP 131/88 Pulse 80 Temp (Src) 98.3 (Oral) Resp 16 Ht 5' 8ANDquot; (1.73m) Wt 151 lb 9.6 oz (68.8kg) SpO2 100% BMI 23.06 kg/(m2).-I have reviewed and updated with the patient: allergies, VS, currentmedications, Past Medical History,Past Surgical History,Past Family MedicalHistory, Past Social History.-Patient education provided today.-Discussed with patient medications that are indicated and how to use themedications and what the potential side effects are.- Follow up with PCP in 2-3 days if symptoms progress- Report to ED with any worsening symptoms or life-threatening concerns- Warning signs of worsening condition explained to patient- Patient left in stable condition after questions answered and patientverbalizes understandingASSESSMENT/PL AN:1. URI, acute - ICD9: 465.9, ICD10: J06.9 (primary diagnosis)- Discussed viral etiology and rationale for treatment.- Rapid strep negative in office today- Symptomatic treatment with prn analgesia- Supportive care with fluids and rest- The patient may also use OTC decongestants prn, OTC cough and cold meds asneeded, warm salt water gargles, throat lozenges and/or OTC throat spray asneeded and nasal saline gtts and suction prn.- Follow up in 3-5 days if symptoms persist or sooner if worsening of symptoms2. Sore throat - ICD9: 462, ICD10: J02.9- suspect viral- Rapid Strep negative in the office today and Throat culture pending- Discussed supportive care treatment with fluids, rest and analgesia.- The patient may also use OTC decongestants prn, OTC cough and cold meds asneeded, warm salt water gargles, throat lozenges and/or OTC throat spray asneeded and nasal saline gtts and suction prn.- The patient should follow up in 3-5 days if symptoms persist or worsen- Call back if drooling, increased temperature, symptoms of dehydration and/orstill sick in one week- ALERE STREP A TEST (AG)- THROAT CULTURE- LIDOCAINE 2 % MUCOSAL SOLUTION3. Cough - ICD9: 786.2, ICD10: R05- OCT cough drops/meds4. Laryngitis, acute - ICD9: 464.00, ICD10: J04.0- see belowFanny Gross CNPPatient information: Cough, runny nose, and the common cold (The Basics)What causes cough, runny nose, and other symptoms of the common cold? ? Thesesymptoms are usually caused by a viral infection. Lots of viruses can take holdinside your nose, mouth, throat, or lungs, and cause cold symptoms.Most people get over a cold without lasting problems. Even so, having a coldcan be uncomfortable. And if your child has a cold, it can be hard to know whenthe symptoms call for a trip to the doctor.What are the symptoms of the common cold? ? The symptoms include:?Sneezing?Coughing ?Sniffling and runny nose?Sore throat?Chest congestionIn children, the common cold can also cause a fever. But adults do not usuallyget a fever when they have a cold.How can I tell if I have a cold or the flu? ? The common cold and the flu bothcause many of the same symptoms. But they also have some important differences.This table can help you tell the difference between the 2.When should I call the doctor or nurse? ? Most people who have a cold do notneed to see the doctor or nurse. But you should call your doctor or nurse ifyou have:?A fever of more than 100.4? F (38? C) that comes with shaking chills, loss ofappetite, or trouble breathing?A fever and also have lung disease, such as emphysema or asthma?A cough that lasts longer than 10 days?Chest pain when you cough, trouble breathing, or coughing up bloodIf you are older than 75, you should also call your doctor or nurse any timeyou get a long-lasting cough.Take your child to the emergency room if he or she:?Becomes confused or stops responding to you?Has trouble breathing or has to work hard to breatheCall your child's doctor or nurse if he or she:?Refuses to drink anything for a long time?Is younger than 4 months?Has a fever and is not acting like him- or herself?Has a cough that lasts for more than 2 weeks and is not getting any better?Has a stuffed or runny nose that gets worse or does not get better after 2weeks?Has red eyes or yellow goop coming out of his or her eyes?Has ear pain, pulls at his or her ears, or shows other signs of having an earinfectionWhat can I do to feel better? ? If you are a teenager or an adult, you can trycough and cold medicines that you can get without a prescription. Thesemedicines might help with your symptoms. But they won't cure your cold, or helpyou get well faster.If you decide to try nonprescription cold medicines, be sure to follow thedirections on the label. Do not combine 2 or more medicines that haveacetaminophen in them. If you take too much acetaminophen, the drug can damageyour liver. Also, if you have a heart condition, or you take prescriptionmedicines, ask your pharmacist if it is safe to take the cold medicine you havein mind.What should I know if my child has a cold? ? In children, the common cold isoften more severe than it is in adults. It also lasts longer. Plus, childrenoften get a fever during the first 3 days of a cold.Are cough and cold medicines safe for children? ? If your child is younger than6, you should NOT give him or her any cold medicines. These medicines are notsafe for young children. Even if your child is older than 6, cough and coldmedicines are unlikely to help.NEVER give aspirin to any child younger than 18 years old. In children, aspirincan cause a life-threatening condition called Ngozi syndrome. When giving yourchild acetaminophen or other nonprescription medicines, never give more thanthe recommended dose.How long will I be sick? ? Colds usually last 3 to 7 days in adults and 10 daysin children, but some people have symptoms for up to 2 weeks.Can the common cold lead to more serious problems? ? In very few cases, yes. Insome people having a cold can lead to:?Pneumonia or bronchitis (infections of the lungs)?Ear infections (in children)?Other infectionsHow can I keep from getting another cold? ? The most important thing you can dois to wash your hands often with soap and water. Alcohol hand rubs work well,too. The germs that cause the common cold can live on tables, door handles, andother surfaces for at least 2 hours. You never know when you might be touchinggerms. That's why it's so important to clean your hands often.This topic retrieved from UpToDateWhat is laryngitis? ? Laryngitis is the medical term for when your vocal cordsare inflamed. Laryngitis usually causes your voice to sound hoarse and can evenmake you lose your voice completely.What causes laryngitis? ? Laryngitis can be caused by:?The common cold and other infections that affect the throat?Shouting or straining your voice too much?Breathing in harsh chemicals, such as machine etcher or gasoline?Drinking too much alcohol or smoking a lot?Acid reflux, which is when the acid from your stomach leaks into your throatThere are also medical problems besides laryngitis that can make your voicehoarse or make you lose your voice. For example, people can have these symptomsbecause of:?Abnormal growths on the vocal cords?Muscle disorders affecting the voice box (such as spasmodic dysphonia)?Cancer of the throatIs there anything I can do on my own to get rid of laryngitis? ? Yes. There aredifferent things you can do, depending on what caused your laryngitis.?If your laryngitis happened because you strained your voice too much, giveyour voice a rest. If you are a day or need to use your voice for work, youmight want to think about taking voice lessons to learn how to protect yourvoice.?If your laryngitis was caused by smoking or drinking, limit how much you smokeor drink. Better yet, quit smoking completely.?If your laryngitis was caused by breathing in a harsh chemical, avoid thechemical. If that is not possible, at least make sure there is a lot fresh aircoming in when you are dealing with fumes. If you work near chemical fumes thatare making you hoarse, speak with your employer about getting masks orventilation fans.?If your laryngitis was caused by acid reflux, take steps to avoid acid reflux.For example:-Take medicines for acid reflux, if your doctor recommends them.-Avoid foods that make your symptoms worse. (Common examples include alcohol,coffee, and chocolate.)-Stop smoking, if you smoke.-Eat many small meals each day, rather than 2 or 3 big meals.-Do not lie down for at least 3 hours after finishing a meal.Should I see a doctor or nurse? ? That depends on how long your symptoms lastand whether you have symptoms besides hoarseness.Most people with laryngitis get better on their own within 2 to 3 weeks. Ifyour voice is hoarse or gone for 2 weeks or longer, and you do not seem to begetting better, see a doctor or nurse.You should also see a doctor or nurse if you have a sore throat and:?You have a fever of at least 101?F or 38.4?C?Your throat pain is severe or does not start to improve within 5 to 7 daysCall an ambulance (dial 9-1-1 in the [place] and [place]) or go to the emergency roomif you:?Have trouble breathing?Are drooling because you cannot swallow your saliva?Have swelling of the neck or tongue?Cannot move your neck or have trouble opening your mouthWill I need tests? ? Maybe. If your doctor or nurse is not sure what is causingyour symptoms, you might need tests. For example, you might have alaryngoscopy, which is when the doctor puts a tube with a tiny camera down yourthroat to look at your voice box.How is laryngitis treated? ? That depends on what is causing it. If yourlaryngitis is caused by a cold or other minor infection, you might not needtreatment. If you do not get better in 2 weeks, there might be something elsecausing your hoarseness. Other causes of laryngitis are treated on [id number]-[id number] basis.-Voice rest is used for acute laryngitis, vocal fold hemorrhage, and otherconditions where there is acute laryngeal edema and swelling. During voicerest, patients refrain from abusive vocal behaviors to prevent further damageto the vocal folds from fibrosis and scarring. Duration ranges from one week toseveral weeks depending on the problem and balancing other issues such aspatient needing to use their voice for work.What if my child gets laryngitis? ? Some of the same things that causelaryngitis in adults can cause it children, too. For instance, children can getlaryngitis because of a throat infection or common cold, because of acidreflux, or because they strain their voice too much. But in children, soundinghoarse can have lots of other causes. For example, children sometimes developbumps on their vocal cords or have defects affecting their voice box.See a doctor or nurse right away if your child has trouble breathing or haspain or other symptoms that seem to be quickly getting worse. You should alsosee a doctor or nurse if your child has laryngitis for more than 2 weeks, or ifthe laryngitis is getting worse or is making it hard for your child to interactwith others. If your child has laryngitis or throat discomfort or pain thatgets better and comes back, see a doctor or nurse. If your child is a baby,call the baby?s doctor as soon as you notice symptoms. The doctor will tell youwhat to do for your baby.Retrieved from Raquel Gross CNP 11/12/2016 9:12 AM SignedPatient is a 21 year old female presenting with sore throat and cough. Thehistory is provided by the patient.Sore ThroatThis is a new problem. The current episode started in the past 7 days (startedlast Saturday). The problem has been unchanged. Neither side of throat isexperiencing more pain than the other. There has been no fever. The pain is fiorella severity of 5/10. The pain is mild. Associated symptoms include congestion,coughing, headaches (Sinus pressure, entirely resolved 2 days) and a hoarsevoice (x 3 days). Pertinent negatives include no abdominal pain, diarrhea, eardischarge, ear pain, plugged ear sensation, neck pain, shortness of breath,stridor, swollen glands, trouble swallowing or vomiting. She has had noexposure to strep. Treatments tried: Sudafed one time only, and ibuprofen. Thetreatment provided no relief.CoughThis is a new problem. The current episode started more than 2 days ago(Started last Saturday sore throat or sinus pressure, progressed to cough, lostvoice past 3 days). The problem occurs constantly. The problem has not changedsince onset.The cough is productive of sputum (Yellow colored sputum). Therehas been no fever. Associated symptoms include headaches (Sinus pressure,entirely resolved 2 days), rhinorrhea and sore throat. Pertinent negativesinclude no chest pain, no chills, no ear pain, no shortness of breath and nowheezing. Her past medical history does not include asthma.Review of SystemsConstitutional: Negative for chills, fever and malaise/fatigue.HENT: Positive for congestion, hoarse voice (x 3 days), rhinorrhea and sorethroat. Negative for ear discharge, ear pain and trouble swallowing.Eyes: Negative.Respiratory: Positive for cough. Negative for shortness of breath, wheezing andstridor.Cardiovascular: Negative for chest pain and palpitations.Gastrointesti nal: Negative for abdominal pain, constipation, diarrhea, nauseaand vomiting.Musculoskeletal: Negative for neck pain.Skin: Negative for rash.Neurological: Positive for headaches (Sinus pressure, entirely resolved 2days).Physical ExamConstitutional: She is oriented to person, place, and time and well-developed,well-nouris hed, and in no distress. Vital signs are normal.HENT:Head: Normocephalic and atraumatic.Right Ear: Hearing, external ear and ear canal normal. A middle ear effusion(clear fluid) is present.Left Ear: Hearing, external ear and ear canal normal. A middle ear effusion(Clear fluid) is present.Nose: Rhinorrhea present. Right sinus exhibits no maxillary sinus tendernessand no frontal sinus tenderness. Left sinus exhibits no maxillary sinustenderness and no frontal sinus tenderness.Mouth/Throat: Uvula is midline and mucous membranes are normal. Oropharyngealexudate (postnasal drainage, clear, moderate) and posterior oropharyngealerythema (Mild) present. No posterior oropharyngeal edema or tonsillarabscesses.Eyes: Conjunctivae, EOM and lids are normal. Pupils are equal, round, andreactive to light. Right eye exhibits no discharge. Left eye exhibits nodischarge.Cardiovascular : Normal rate, regular rhythm, S1 normal, S2 normal and normalheart sounds. Exam reveals no gallop and no friction rub.No murmur heard.Pulmonary/Chest: Effort normal and breath sounds normal. She has no wheezes.She has no rhonchi. She has no rales.Lymphadenopathy: Head (right side): No submental, no submandibular, no tonsillar, nopreauricular and no posterior auricular adenopathy present. Head (left side): No submental, no submandibular, no tonsillar, nopreauricular and no posterior auricular adenopathy present. She has no cervical adenopathy.Neurological: She is oriented to person, place, and time.Skin: Skin is warm, dry and intact.Psychiatric: Mood, memory, affect and judgment normal.Nursing note and vitals reviewed.BP 131/88 Pulse 80 Temp (Src) 98.3 (Oral) Resp 16 Ht 5' 8ANDquot; (1.73m) Wt 151 lb 9.6 oz (68.8kg) SpO2 100% BMI 23.06 kg/(m2).-I have reviewed and updated with the patient: allergies, VS, currentmedications, Past Medical History,Past Surgical History,Past Family MedicalHistory, Past Social History.-Patient education provided today.-Discussed with patient medications that are indicated and how to use themedications and what the potential side effects are.- Follow up with PCP in 2-3 days if symptoms progress- Report to ED with any worsening symptoms or life-threatening concerns- Warning signs of worsening condition explained to patient- Patient left in stable condition after questions answered and patientverbalizes understandingASSESSMENT/PL AN:1. URI, acute - ICD9: 465.9, ICD10: J06.9 (primary diagnosis)- Discussed viral etiology and rationale for treatment.- Rapid strep negative in office today- Symptomatic treatment with prn analgesia- Supportive care with fluids and rest- The patient may also use OTC decongestants prn, OTC cough and cold meds asneeded, warm salt water gargles, throat lozenges and/or OTC throat spray asneeded and nasal saline gtts and suction prn.- Follow up in 3-5 days if symptoms persist or sooner if worsening of symptoms2. Sore throat - ICD9: 462, ICD10: J02.9- suspect viral- Rapid Strep negative in the office today and Throat culture pending- Discussed supportive care treatment with fluids, rest and analgesia.- The patient may also use OTC decongestants prn, OTC cough and cold meds asneeded, warm salt water gargles, throat lozenges and/or OTC throat spray asneeded and nasal saline gtts and suction prn.- The patient should follow up in 3-5 days if symptoms persist or worsen- Call back if drooling, increased temperature, symptoms of dehydration and/orstill sick in one week- ALERE STREP A TEST (AG)- THROAT CULTURE- LIDOCAINE 2 % MUCOSAL SOLUTION3. Cough - ICD9: 786.2, ICD10: R05- OCT cough drops/meds4. Laryngitis, acute - ICD9: 464.00, ICD10: J04.0- Written educational material givenFanny Gross CNPReferring Provider: SELF [200]Allergies As of Date: 11/12/2016 Noted Allergy ReactionSULFA (SULFONAMIDE ANTIBIOTICS) 11/12/2016 4 - HivesDate Reviewed: 11/12/2016Reviewed by: Fanny Banks) Renato - Fully AssessedReason for Visit: Sore Throat [200] Cmt: Patient started experiencing a sore throat about a week ago, it progressed into a productive cough and nasal/chest congestion. She went to the doctor for a physical on Saturday, they discussed her symptoms but no treatment. Has been treating with Sudafed, last dose was a few days ago, no relief. Cough [28] New Patient [172]Reason For Visit History RecordedPrimary Visit Diagnosis:URI, acute [J06.9] Other Visit Diagnoses:Sore throat [J02.9] Cough [R05] Laryngitis, acute [J04.0]Order(s):ALERE STREP A TEST (AG) [[id number]] Order #: [id number] THROAT CULTURE [SQTHRCUL] Order #: [id number] FUTURE lidocaine viscous (LIDOCAINE VISCOUS) 2 % solutionTake 5 mL by mouth four times daily as needed for Pain (swish and spit, do NOT swallow).Disp: 100 mLRfl: 0Prescriptions as of 11/12/2016 Sig: LIDOCAINE 2 % MUCOSAL SOLUTION Take 5 mL by mouth four times*Problem List As Of Date: 11/12/2016(None) Other instructions from your clinician: BP 131/88 Pulse 80 Temp (Src) 98.3 (Oral) Resp 16 Ht 5' 8 (1.73m) Wt 151 lb 9.6 oz (68.8kg) SpO2 100% BMI 23.06 kg/(m2). -I have reviewed and updated with the patient: allergies, VS, current medications, Past Medical History,Past Surgical History,Past Family Medical History, Past Social History. -Patient education provided today. -Discussed with patient medications that are indicated and how to use the medications and what the potential side effects are. - Follow up with PCP in 2-3 days if symptoms progress - Report to ED with any worsening symptoms or life-threatening concerns - Warning signs of worsening condition explained to patient - Patient left in stable condition after questions answered and patient verbalizes understanding ASSESSMENT/PLAN: 1. URI, acute - ICD9: 465.9, ICD10: J06.9 (primary diagnosis) - Discussed viral etiology and rationale for treatment. - Rapid strep negative in office today - Symptomatic treatment with prn analgesia - Supportive care with fluids and rest - The patient may also use OTC decongestants prn, OTC cough and cold meds as needed, warm salt water gargles, throat lozenges and/or OTC throat spray as needed and nasal saline gtts and suction prn. - Follow up in 3-5 days if symptoms persist or sooner if worsening of symptoms 2. Sore throat - ICD9: 462, ICD10: J02.9 - suspect viral - Rapid Strep negative in the office today and Throat culture pending - Discussed supportive care treatment with fluids, rest and analgesia. - The patient may also use OTC decongestants prn, OTC cough and cold meds as needed, warm salt water gargles, throat lozenges and/or OTC throat spray as needed and nasal saline gtts and suction prn. - The patient should follow up in 3-5 days if symptoms persist or worsen - Call back if drooling, increased temperature, symptoms of dehydration and/or still sick in one week - ALERE STREP A TEST (AG) - THROAT CULTURE - LIDOCAINE 2 % MUCOSAL SOLUTION 3. Cough - ICD9: 786.2, ICD10: R05 - OCT cough drops/meds 4. Laryngitis, acute - ICD9: 464.00, ICD10: J04.0 - see below Fanny Gross CNP Patient information: Cough, runny nose, and the common cold (The Basics) What causes cough, runny nose, and other symptoms of the common cold? ? These symptoms are usually caused by a viral infection. Lots of viruses can take hold inside your nose, mouth, throat, or lungs, and cause cold symptoms. Most people get over a cold without lasting problems. Even so, having a cold can be uncomfortable. And if your child has a cold, it can be hard to know when the symptoms call for a trip to the doctor. What are the symptoms of the common cold? ? The symptoms include: ?Sneezing ?Coughing ?Sniffling and runny nose ?Sore throat ?Chest congestion In children, the common cold can also cause a fever. But adults do not usually get a fever when they have a cold. How can I tell if I have a cold or the flu? ? The common cold and the flu both cause many of the same symptoms. But they also have some important differences. This table can help you tell the difference between the 2. When should I call the doctor or nurse? ? Most people who have a cold do not need to see the doctor or nurse. But you should call your doctor or nurse if you have: ?A fever of more than 100.4? F (38? C) that comes with shaking chills, loss of appetite, or trouble breathing ?A fever and also have lung disease, such as emphysema or asthma ?A cough that lasts longer than 10 days ?Chest pain when you cough, trouble breathing, or coughing up blood If you are older than 75, you should also call your doctor or nurse any time you get a long-lasting cough. Take your child to the emergency room if he or she: ?Becomes confused or stops responding to you ?Has trouble breathing or has to work hard to breathe Call your child's doctor or nurse if he or she: ?Refuses to drink anything for a long time ?Is younger than 4 months ?Has a fever and is not acting like him- or herself ?Has a cough that lasts for more than 2 weeks and is not getting any better ?Has a stuffed or runny nose that gets worse or does not get better after 2 weeks ?Has red eyes or yellow goop coming out of his or her eyes ?Has ear pain, pulls at his or her ears, or shows other signs of having an ear infection What can I do to feel better? ? If you are a teenager or an adult, you can try cough and cold medicines that you can get without a prescription. These medicines might help with your symptoms. But they won't cure your cold, or help you get well faster. If you decide to try nonprescription cold medicines, be sure to follow the directions on the label. Do not combine 2 or more medicines that have acetaminophen in them. If you take too much acetaminophen, the drug can damage your liver. Also, if you have a heart condition, or you take prescription medicines, ask your pharmacist if it is safe to take the cold medicine you have in mind. What should I know if my child has a cold? ? In children, the common cold is often more severe than it is in adults. It also lasts longer. Plus, children often get a fever during the first 3 days of a cold. Are cough and cold medicines safe for children? ? If your child is younger than 6, you should NOT give him or her any cold medicines. These medicines are not safe for young children. Even if your child is older than 6, cough and cold medicines are unlikely to help. NEVER give aspirin to any child younger than 18 years old. In children, aspirin can cause a life-threatening condition called Ngozi syndrome. When giving your child acetaminophen or other nonprescription medicines, never give more than the recommended dose. How long will I be sick? ? Colds usually last 3 to 7 days in adults and 10 days in children, but some people have symptoms for up to 2 weeks. Can the common cold lead to more serious problems? ? In very few cases, yes. In some people having a cold can lead to: ?Pneumonia or bronchitis (infections of the lungs) ?Ear infections (in children) ?Other infections How can I keep from getting another cold? ? The most important thing you can do is to wash your hands often with soap and water. Alcohol hand rubs work well, too. The germs that cause the common cold can live on tables, door handles, and other surfaces for at least 2 hours. You never know when you might be touching germs. That's why it's so important to clean your hands often. This topic retrieved from UpToDate What is laryngitis? ? Laryngitis is the medical term for when your vocal cords are inflamed. Laryngitis usually causes your voice to sound hoarse and can even make you lose your voice completely. What causes laryngitis? ? Laryngitis can be caused by: ?The common cold and other infections that affect the throat ?Shouting or straining your voice too much ?Breathing in harsh chemicals, such as machine etcher or gasoline ?Drinking too much alcohol or smoking a lot ?Acid reflux, which is when the acid from your stomach leaks into your throat There are also medical problems besides laryngitis that can make your voice hoarse or make you lose your voice. For example, people can have these symptoms because of: ?Abnormal growths on the vocal cords ?Muscle disorders affecting the voice box (such as spasmodic dysphonia) ?Cancer of the throat Is there anything I can do on my own to get rid of laryngitis? ? Yes. There are different things you can do, depending on what caused your laryngitis. ?If your laryngitis happened because you strained your voice too much, give your voice a rest. If you are a day or need to use your voice for work, you might want to think about taking voice lessons to learn how to protect your voice. ?If your laryngitis was caused by smoking or drinking, limit how much you smoke or drink. Better yet, quit smoking completely. ?If your laryngitis was caused by breathing in a harsh chemical, avoid the chemical. If that is not possible, at least make sure there is a lot fresh air coming in when you are dealing with fumes. If you work near chemical fumes that are making you hoarse, speak with your employer about getting masks or ventilation fans. ?If your laryngitis was caused by acid reflux, take steps to avoid acid reflux. For example: -Take medicines for acid reflux, if your doctor recommends them. -Avoid foods that make your symptoms worse. (Common examples include alcohol, coffee, and chocolate.) -Stop smoking, if you smoke. -Eat many small meals each day, rather than 2 or 3 big meals. -Do not lie down for at least 3 hours after finishing a meal. Should I see a doctor or nurse? ? That depends on how long your symptoms last and whether you have symptoms besides hoarseness. Most people with laryngitis get better on their own within 2 to 3 weeks. If your voice is hoarse or gone for 2 weeks or longer, and you do not seem to be getting better, see a doctor or nurse. You should also see a doctor or nurse if you have a sore throat and: ?You have a fever of at least 101?F or 38.4?C ?Your throat pain is severe or does not start to improve within 5 to 7 days Call an ambulance (dial in the [place] and [place]) or go to the emergency room if you: ?Have trouble breathing ?Are drooling because you cannot swallow your saliva ?Have swelling of the neck or tongue ?Cannot move your neck or have trouble opening your mouth Will I need tests? ? Maybe. If your doctor or nurse is not sure what is causing your symptoms, you might need tests. For example, you might have a laryngoscopy, which is when the doctor puts a tube with a tiny camera down your throat to look at your voice box. How is laryngitis treated? ? That depends on what is causing it. If your laryngitis is caused by a cold or other minor infection, you might not need treatment. If you do not get better in 2 weeks, there might be something else causing your hoarseness. Other causes of laryngitis are treated on a cnlr-zs-pgar basis. -Voice rest is used for acute laryngitis, vocal fold hemorrhage, and other conditions where there is acute laryngeal edema and swelling. During voice rest, patients refrain from abusive vocal behaviors to prevent further damage to the vocal folds from fibrosis and scarring. Duration ranges from one week to several weeks depending on the problem and balancing other issues such as patient needing to use their voice for work. What if my child gets laryngitis? ? Some of the same things that cause laryngitis in adults can cause it children, too. For instance, children can get laryngitis because of a throat infection or common cold, because of acid reflux, or because they strain their voice too much. But in children, sounding hoarse can have lots of other causes. For example, children sometimes develop bumps on their vocal cords or have defects affecting their voice box. See a doctor or nurse right away if your child has trouble breathing or has pain or other symptoms that seem to be quickly getting worse. You should also see a doctor or nurse if your child has laryngitis for more than 2 weeks, or if the laryngitis is getting worse or is making it hard for your child to interact with others. If your child has laryngitis or throat discomfort or pain that gets better and comes back, see a doctor or nurse. If your child is a baby, call the baby?s doctor as soon as you notice symptoms. The doctor will tell you what to do for your baby. Retrieved from [employer] ordered this encounter Disp Refills Start End LIDOCAINE 2 % MUCOSAL SOLUTION 100 * 0 11/12/2016 Route: ORAL Sig: Take 5 mL by mouth four times daily as needed for Pain (swish and spit, do NOT swallow).Disposition: Return if symptoms worsen or fail to improve.Follow-up and Disposition History RecordedEncounter Number: [id number] Status:Closed by FANNY GROSS CNP on 11/12/16 [facility] PROGRESSon 11-12-2016 PROGRESS HNO ID: [id number] thor: Fanny (Desmond) Arleyervice: (none)Author Type: Nurse PractitionerType: Progress NotesFiled: 11/12/2016 9:12 AMNote Text:Patient is a 21 year old female presenting with sore throat and cough. Thehistory is provided by the patient.Sore ThroatThis is a new problem. The current episode started in the past 7 days(started last Saturday). The problem has been unchanged. Neither side ofthroat is experiencing more pain than the other. There has been no fever.The pain is at a severity of 5/10. The pain is mild. Associated symptomsinclude congestion, coughing, headaches (Sinus pressure, entirely resolved2 days) and a hoarse voice (x 3 days). Pertinent negatives include noabdominal pain, diarrhea, ear discharge, ear pain, plugged ear sensation,neck pain, shortness of breath, stridor, swollen glands, troubleswallowing or vomiting. She has had no exposure to strep. Treatmentstried: Sudafed one time only, and ibuprofen. The treatment provided norelief.CoughThis is a new problem. The current episode started more than 2 days ago(Started last Saturday sore throat or sinus pressure, progressed to cough,lost voice past 3 days). The problem occurs constantly. The problem hasnot changed since onset.The cough is productive of sputum (Yellow coloredsputum). There has been no fever. Associated symptoms include headaches(Sinus pressure, entirely resolved 2 days), rhinorrhea and sore throat.Pertinent negatives include no chest pain, no chills, no ear pain, noshortness of breath and no wheezing. Her past medical history does notinclude asthma.Review of SystemsConstitutional: Negative for chills, fever and malaise/fatigue.HENT: Positive for congestion, hoarse voice (x 3 days), rhinorrhea andsore throat. Negative for ear discharge, ear pain and trouble swallowing.Eyes: Negative.Respiratory: Positive for cough. Negative for shortness of breath,wheezing and stridor.Cardiovascular: Negative for chest pain and palpitations.Gastrointesti nal: Negative for abdominal pain, constipation, diarrhea,nausea and vomiting.Musculoskeletal: Negative for neck pain.Skin: Negative for rash.Neurological: Positive for headaches (Sinus pressure, entirely resolved 2days).Physical ExamConstitutional: She is oriented to person, place, and time andwell-developed, well-nourished, and in no distress. Vital signs arenormal.HENT:Head: Normocephalic and atraumatic.Right Ear: Hearing, external ear and ear canal normal. A middle eareffusion (clear fluid) is present.Left Ear: Hearing, external ear and ear canal normal. A middle eareffusion (Clear fluid) is present.Nose: Rhinorrhea present. Right sinus exhibits no maxillary sinustenderness and no frontal sinus tenderness. Left sinus exhibits nomaxillary sinus tenderness and no frontal sinus tenderness.Mouth/Throat: Uvula is midline and mucous membranes are normal.Oropharyngeal exudate (postnasal drainage, clear, moderate) and posteriororopharyngeal erythema (Mild) present. No posterior oropharyngeal edema ortonsillar abscesses.Eyes: Conjunctivae, EOM and lids are normal. Pupils are equal, round, andreactive to light. Right eye exhibits no discharge. Left eye exhibits nodischarge.Cardiovascular : Normal rate, regular rhythm, S1 normal, S2 normal andnormal heart sounds. Exam reveals no gallop and no friction rub.No murmur heard.Pulmonary/Chest: Effort normal and breath sounds normal. She has nowheezes. She has no rhonchi. She has no rales.Lymphadenopathy: Head (right side): No submental, no submandibular, no tonsillar, nopreauricular and no posterior auricular adenopathy present. Head (left side): No submental, no submandibular, no tonsillar, nopreauricular and no posterior auricular adenopathy present. She has no cervical adenopathy.Neurological: She is oriented to person, place, and time.Skin: Skin is warm, dry and intact.Psychiatric: Mood, memory, affect and judgment normal.Nursing note and vitals reviewed.BP 131/88 Pulse 80 Temp (Src) 98.3 (Oral) Resp 16 Ht 5' 8 (1.73m) Wt 151 lb 9.6 oz (68.8kg) SpO2 100% BMI 23.06 kg/(m2).-I have reviewed and updated with the patient: allergies, VS, currentmedications, Past Medical History,Past Surgical History,Past FamilyMedical History, Past Social History.-Patient education provided today.-Discussed with patient medications that are indicated and how to use themedications and what the potential side effects are.- Follow up with PCP in 2-3 days if symptoms progress- Report to ED with any worsening symptoms or life-threatening concerns- Warning signs of worsening condition explained to patient- Patient left in stable condition after questions answered and patientverbalizes understandingASSESSMENT/PL AN:1. URI, acute - ICD9: 465.9, ICD10: J06.9 (primary diagnosis)- Discussed viral etiology and rationale for treatment.- Rapid strep negative in office today- Symptomatic treatment with prn analgesia- Supportive care with fluids and rest- The patient may also use OTC decongestants prn, OTC cough and cold medsas needed, warm salt water gargles, throat lozenges and/or OTC throatspray as needed and nasal saline gtts and suction prn.- Follow up in 3-5 days if symptoms persist or sooner if worsening ofsymptoms2. Sore throat - ICD9: 462, ICD10: J02.9- suspect viral- Rapid Strep negative in the office today and Throat culture pending- Discussed supportive care treatment with fluids, rest and analgesia.- The patient may also use OTC decongestants prn, OTC cough and cold medsas needed, warm salt water gargles, throat lozenges and/or OTC throatspray as needed and nasal saline gtts and suction prn.- The patient should follow up in 3-5 days if symptoms persist or worsen- Call back if drooling, increased temperature, symptoms of dehydrationand/or still sick in one week- ALERE STREP A TEST (AG)- THROAT CULTURE- LIDOCAINE 2 % MUCOSAL SOLUTION3. Cough - ICD9: 786.2, ICD10: R05- OCT cough drops/meds4. Laryngitis, acute - ICD9: 464.00, ICD10: J04.0- Written educational material givenFanny Gross CNP [facility] Throat Cultureon 11-12-2016 Throat Culture Test performed at [facility] No group A beta streptococci cultured. Normal [facility] Comment on above: Performed By: #### C THRT ####[facility] [place], [place] [address] Vital Signs Date Time Vital Sign Value Performing Clinician José Miguel hendrix 12-26-2021 13:47-0500 Blood Pressure Location Hayes Gudimella [facility] 12-26-2021 13:47-0500 Body temperature 96.8 [degF] Hayes Gudimella [facility] 12-26-2021 13:47-0500 Diastolic blood pressure 72 mm[Hg] Hayes Gudimella [facility] 12-26-2021 13:47-0500 Heart rate 67 /min Hayes Gudimella [facility] 12-26-2021 13:47-0500 Respiratory rate 16 /min Hayes Gudimella [facility] 12-26-2021 13:47-0500 SaO2% (BldA) [Mass fraction] 98 % Hayes Gudimella [facility] 12-26-2021 13:47-0500 Systolic blood pressure 112 mm[Hg] Hayes Gudimella [facility] Encounters Encounter Date Encounter Type Care Provider Facility Start: 01-16-2023 End: 01-16-2023 ambulatory CHEYENNE WHITT Not Available Start: 11-04-2022 End: 11-05-2022 Emergency department patient visit Gorge Castro Facility:[facility] Start: 05-14-2022 End: 05-14-2022 ambulatory AMBAR VIVAS . Facility: Start: 12-26-2021 End: 12-27-2021 ambulatory MD Hayes Moura Facility:[facility] Start: 12-26-2021 End: 12-26-2021 Lab Drop off Hayes Sumitla [facility] Start: 12-26-2021 End: 12-26-2021 Patient encounter procedure Hayes Shilohmella [facility] Start: 11-12-2016 End: 11-13-2016 Ambulatory FANNY ([employer]IATE) [facility] Start: 11-12-2016 End: 11-12-2016 Ambulatory FANNY (DESMODN) [facility] Procedures Date Procedure Procedure Detail Performing Clinician Start: 02-11-1998 Adenoid excision Hayes Gudimella Immunizations Immunization Date Immunization Notes Care Provider Parisa martínez 04-16-2020 SARS-CoV-2 (COVID-19 ) [id number] vaccine Hayes Gudimella [facility] 11-16-2019 influenza, injectabl e, quadrivalent, contains preservative Hayes Gudimella [facility] 08-28-2019 tetanus toxoid, reduced diphtheria toxoid, and acellular pertussis vaccine, adsorbed Hayes Gurajatmella [facility] NEGATED: Highlighted row has not occurred!12-26-2021 influenza virus vaccine, unspecified formulation Hayes Gudimella [facility] Payers Date Payer Category Payer Unknown [id number] [id number] 1995 Unknown [id number] [id number] 1993 Unknown [id number] [id number] [id number] 1993 Unknown [id number] 2.16.8 [id number] 1993 Unknown [id number] 2.16.8 [id number] 1993 Unknown [id number] 1959 Unknown [id number] Unknown [id number] Social History Date Type Detail Facility Start: 12-26-2021 Tobacco smoking status Ex-smoker (fi nding) [facility] Comment on above: denies denies Tobacco smoking status Never [facility] Comment on above: denies denies Sex Assigned At Female [facility] Functional Status Date Assessment Result Facility 12-26-2021 Functional Status N/A [facility] Clinical Note 01-19-2022 Note Date & Type Note Facility 01-19-2022 Note Microbiology PROCEDURE: Fungus Culture [R1] SOURCE: Body Fl BODY SITE: Breast COLLECTED DATE/TIME: 12/26/2021 14:35 EST RECEIVED DATE/TIME: 12/29/2021 14:35 EST START DATE/TIME: 12/29/2021 14:36 EST FREE TEXT SOURCE: breast milk Hayes Moura MD FINAL REPORTS Final Report [] Verified Date/Time: 01/19/2022 15:26 EST Rocio albicans isolated. STAINS HERMINIO Preparation Report [] Verified Date/Time: 12/29/2021 15:09 EST No fungal elements seen. Performing Locations R1: This test was performed at: [facility], [address] [place] [address], [facility]- , , [facility] Comment on above: Performed By: #### [id number] #### [facility] [address] [place] [address] Clinical Note 12-29-2021 Note Date & Type Note Facility 12-29-2021 Note Microbiology PROCEDURE: Fluid Culture [R1] SOURCE: Fluid BODY SITE: Breast COLLECTED DATE/TIME: 12/26/2021 14:35 EST RECEIVED DATE/TIME: 12/27/2021 14:14 EST START DATE/TIME: 12/27/2021 14:14 EST FREE TEXT SOURCE: breast milk Hayes Moura MD FINAL REPORTS Final Report [] Verified Date/Time: 12/29/2021 12:02 EST 1+ Bacillus species, not B. anthracis isolated. 1+ Staphylococcus species coagulase negative / Normal skin nicole isolated 1+ Viridans Streptococcus Group / Normal skin nicole isolated STAINS Gram Stain Report [] Verified Date/Time: 12/28/2021 11:27 EST No WBC's seen. Rare Gram Positive Cocci Performing Locations R1: This test was performed at: [facility], [address] [place] [address], [address]- , , [facility] Comment on above: Performed By: #### [id number] #### [facility] [address] [place] [address] Evaluation + Plan note 12-26-2021 Note Date & Type Note Facility 12-26-2021 Evaluation + Plan note Diagnostic Tests PendingFluid Culture 12/26/21 [facility] Evaluation + Plan note Note Date & Type Note Facility Evaluation + Plan note No data available for this section [facility] Hospital Discharge instructions Note Date & Type Note Facility Hospital Discharge instructions No data available for this section [facility] Progress note Note Date & Type Note Facility Progress note No data available for this section [facility] Summary Purpose Family History No Family History Records FoundNo Family History Records FoundNo Family History Records FoundNo Family History Records FoundNo Family History Records Found Advance Directives No Advanced Directives Records FoundNo Advanced Directives Records FoundNo Advanced Directives Records FoundNo Advanced Directives Records FoundNo Advanced Directives Records Found Additional Source Comments INFORMATION SOURCE (unrecogn ized section and content) DATE CREATED AUTHOR 08/06/2017 [facility] DATE CREATED AUTHOR AUTHOR'S ORGANIZ ATION 08/17/2017 [facility] DATE CREATED AUTHOR AUTHOR'S ORGANIZ ATION 05/21/2022 [facility] DATE CREATED AUTHOR AUTHOR'S ORGANIZ ATION 11/16/2022 [facility] DATE CREATED AUTHOR AUTHOR'S ORGANIZ ATION 01/18/2023 [facility] EPIC Patient Care team informatio n (unrecognized section and content) Personnel Name: Sherri CHEUNG MD Address: Address: [address] [place] [address] Personnel Name: Sherri CHEUNG MD Address: Address: [address] [place] [address] Personnel Name: Sherri CHEUNG MD Address: Address: [address] [place], [place] [id number] Personnel Name: Sherri CHEUNG MD Address: Address: [address] [place] [address] Personnel Name: Sherri CHEUNG MD Address: Address: [address] [place] [address] Personnel Name: Sherri CHEUNG MD Address: Address: [address] [place] [address] FOR RECORDS PERTAINING TO PATIENTS WHO ARE OR HAVE BEEN ENROLLED IN A CHEMICAL DEPENDENCY/SUBSTANCEABUSE PROGRAM, SOME INFORMATION MAY BE OMITTED. This clinical summary was aggregated from multiple sources. Caution should be exercised in using it in the provision of clinical care. This summary normalizes information from multiple sources, and as a consequence, information in this document may materially change the coding, format and clinical context of patient data. In addition, data may be omitted in some cases. CLINICAL DECISIONS SHOULD BE BASED ON THE PRIMARY CLINICAL RECORDS. [facility] [employer] [facility]. provides no warranty or guarantee of the accuracy or completeness of information in this document.
--- NOTE | 2023-02-14 17:01 | US_ITS ---
[address] [address] Patient Name: CUCO THOMAS MRN: [id number] date: 1995 Sex: F Assigned Patient Location: US Current Patient Location: Accession/Order Number: [id number] Exam Date: 02/14/2023 17:05 Report Date: 02/15/2023 07:19 At the request of: CHEYENNE WHITT Procedure: US OB transvaginal EXAMINATION: US OB anatomy, US OB transvaginal HISTORY: SECOND TRIMESTER Z34.92 COMPARISON: No relevant comparison available. TECHNIQUE: Transabdominal sonographic examination was performed for obstetrical and evaluation. FINDINGS: Number: 1 Heart Rate: 142.9 bpm H.B. /min Amniotic Fluid Volume: Subjectively normal position: Cephalic presentation, longitudinal lie Placental Location: Posterior, placental edge 5.3 cm from the internal os. Grade 0 Cervix Length: 3.4 cm, closed Normal anatomy: Lateral ventricles, cerebellum, posterior fossa, nose, lips, orbits, four-chamber heart, RVOT, LVOT, diaphragm, stomach, kidneys, abdominal cord insertion, bladder, umbilical cord arteries, three-vessel cord, extremities Suboptimal visualization: Spine secondary to position Abnormality. 2 mm right ventricular echogenic focus BIOMETRY: BPD: 5.0 cm 21 weeks 0 days , 56% HC: 18.4 cm 20 weeks 5 days, 37% AC: 16.5 cm 21 weeks 4 days, 65% FL: 3.4 cm 20 weeks 6 days , 40% EFW:402.9 grams; 14 ounces, 61% FL/AC: 20.9 FL/BPD: 69.3 HC/AC: 1.1 GESTATIONAL AGE: Age by EDC: 20 weeks 6 days Age by current US: 21 weeks 0 days RAKEL by current US: 06/27/2023 RAKEL by EDC: 06/28/2023 US/US OB transvaginal IMPRESSION: Suboptimal visualization of the spine 2 mm right ventricular echogenic focus, nonspecific Otherwise normal anatomy scan Closed cervix measuring 3.4 cm in length *Reference: [employer] Practice Guideline for the performance of Obstetric Ultrasound Examinations, November 11, 2006. Electronically authenticated by: STORM ROSE Date: 02/15/2023 07:19
--- NOTE | 2023-02-14 17:01 | US_ITS ---
[address] [address] Patient Name: CUCO THOMAS MRN: [id number] date: 1995 Sex: F Assigned Patient Location: US Current Patient Location: Accession/Order Number: [id number] Exam Date: 02/14/2023 17:05 Report Date: 02/15/2023 07:19 At the request of: CHEYENNE WHITT Procedure: US OB anatomy EXAMINATION: US OB anatomy, US OB transvaginal HISTORY: SECOND TRIMESTER Z34.92 COMPARISON: No relevant comparison available. TECHNIQUE: Transabdominal sonographic examination was performed for obstetrical and evaluation. FINDINGS: Number: 1 Heart Rate: 142.9 bpm H.B. /min Amniotic Fluid Volume: Subjectively normal position: Cephalic presentation, longitudinal lie Placental Location: Posterior, placental edge 5.3 cm from the internal os. Grade 0 Cervix Length: 3.4 cm, closed Normal anatomy: Lateral ventricles, cerebellum, posterior fossa, nose, lips, orbits, four-chamber heart, RVOT, LVOT, diaphragm, stomach, kidneys, abdominal cord insertion, bladder, umbilical cord arteries, three-vessel cord, extremities Suboptimal visualization: Spine secondary to position Abnormality. 2 mm right ventricular echogenic focus BIOMETRY: BPD: 5.0 cm 21 weeks 0 days , 56% HC: 18.4 cm 20 weeks 5 days, 37% AC: 16.5 cm 21 weeks 4 days, 65% FL: 3.4 cm 20 weeks 6 days , 40% EFW:402.9 grams; 14 ounces, 61% FL/AC: 20.9 FL/BPD: 69.3 HC/AC: 1.1 GESTATIONAL AGE: Age by EDC: 20 weeks 6 days Age by current US: 21 weeks 0 days RAKEL by current US: 06/27/2023 RAKEL by EDC: 06/28/2023 US/US OB anatomy IMPRESSION: Suboptimal visualization of the spine 2 mm right ventricular echogenic focus, nonspecific Otherwise normal anatomy scan Closed cervix measuring 3.4 cm in length *Reference: [employer] Practice Guideline for the performance of Obstetric Ultrasound Examinations, November 11, 2006. Electronically authenticated by: STORM ROSE Date: 02/15/2023 07:19
== END 2023-02-14 16:58 | disposition home or self-care (01) ==
LOC: US 16:57
PROVIDERS: Visit Provider Obstetrics & Gynecology
DX: Z34.92 Encounter for supervision of normal pregnancy, unspecified, second trimester (principal)
CPT/HCPCS: 76805; 76817

== ENCOUNTER 2023-03-14 07:55 | Outpatient (OUT) | payer BC, SELFPAY ==
--- OUTSIDE RECORDS SUMMARY | 2023-03-14 07:59 | XMS_ITS | CCD ---
Author Name Unknown Address [address] [place] [id number] Organization [facility] Care Team Providers Care Mimeographer Name Role Phone FANNY GROSS (EMOTIONAL SUPPORT TEACHER) Unavailable Unavailab le MOSNEAFANNY Griffin (EMOTIONAL SUPPORT TEACHER) Unavailable Unavailab le IMCA Unavailable Unavailable FANNY GROSS E Unavailable Unavailable Sherri CHEUNG Primary Care Physician AMBAR MCGRAW Admitting Unavailable AMBAR MCGRAW Attending [facility]available [facility] Primary Care Unavailable AMBAR MCGRAW Consulting Unavailable MD Zeny Hayes Attending Unavailable MD Zeny Hayes Admitting Unavailable Gorge Castro Attending Unavailable MD Zeny Hayes Attending Unavailable MD Zeny Hayes Attending Unavailable MD Zeny Hayes Admitting Unavailable AMBAR VIVAS Attending Unavailable CHEYENNE WHITT Attending Unavailable Allergies Allergy Classification Reported Allergen(s) Allergy Type Date of Onset Reaction(s) Facility (2 sources) Sulfonamides (Antibiotic); Translations: [SULFA (SULFONAMIDE ANTIBIOTICS)] Propensity to adverse reactions to drug (disorder) 7 [facility] Other [facility] (7 sources) Sulfonamides (Antibiotic); Translations: [sulfa drugs] Drug allergy [facility] (1 source) Sulfonamides (Antibiotic) Drug allergy (disorder) [facility] Repository Medications Current Medications Medication Drug Class(es) Dates Sig (Normalized) Sig (Original) clotrimazole 10 mg/ml topical cream (6 sources) Azole Antifungal Start: 12-26-2021 clotrimazole Top 1% Crm 1 lenin, Topical, BID, 24 gram, Refill(s) 0, [id number], 175, cm, 12/26/21 13:50:00 EST, Height/Length Dosing, [...] Interpretation Reference Range Facility ED Note-Physicianon 11-12-19 23 ED Note-Physician Basic Information Time Seen: Elena PANDEY, Bud Ferrari 11/04/2022 21:19 Chief Complaint Pt reports she [...] and Complexity of Problems Differential Diagnosis: [] [facility] Data External documents reviewed: Not applicable [...] day(s), # 14 cap(s), Refills(s) 0, Pharmacy: [id number], 173, cm, 11/04/22 21:16:00 EDT, Height/Length Dosing, 90.6, kg, 11/04/22 21:16:00 EDT, Weight Dosing Disposition Plan Patient Discharge Condition Stable Discharge Disposition To home Discharge Prescription List Prescriptions cephalexin 500 mg Cap, 500 mg= 1 cap(s), Oral, q12hr Follow-up With When Contact Information Sherri CHEUNG In 3 days 11/07/[address] [place] [id number]- Business (1) Additional Instructions: Call the office [...] Patient seen and evaluated by the physician orthopedic assistant. Attending physician was present in the emergency department and supervised care. This visit was performed by both the physician and an APC. I performed all aspects of the MDM as documented. This report was transcribed using voice recognition software. Every effort was made to ensure accuracy, however, inadvertently computerized technical business systems analyst mistakes may be present. Appropriate healthcare PPE was used in evaluating this patient. The patient was placed in a mask. The healthcare provider was wearing mask, gloves, and util (more content not included)... Normal [facility] Comment on above: Result Comment: Elec tronically Signed By: Bud Parker PA-C\.br\Date and Time Signed: 11/04/22 22:25 EDT\.br\Electronically Co-Signed By: Gorge Castro MD\.br\Date and Time Co-Signed: 11/11/22 20:46 EDT Discharge Instructionson Discharge Instructions [id number]:12 7 Normal [facility] ED Clinical Summaryon 2022 ED Clinical Summary (Inserted Image. Marylu ble to display) [place] [id number] ED Clinical Summary Person Information Name: CUCO THOMAS Richelle/[facility] Age: 27 Years : 1995 Sex: Female Language: Bulgarian PCP: hSerri CHEUNG MD Marital Status: Single Visit Id: [...] 11/04/2022 22:37:58 11/04/2022 22:37:58 11/04/2022 22:37:58 ADDRESS: [address] [place] [id number] PHYS DOC NOTES: MEDICAL INFORMATION: Prescriptions Given: New Medications [id number], [address] [place], [place] [id number], [phone] cephalexin (cephalexin 500 mg Cap) 1 Capsules [...] Avulsion Follow up: With: Address: When: Sherri JONATAN [address] [place], [place] [address], [place] [address] Business (1) In 3 days 11/07/2022 Comments: [...] or worsening symptoms. DIAGNOSIS: Fingertip avulsion Normal [facility] ED Patient Education Noteon 11-05-2022 ED Patient [...] even if your condition improves. ? Take iyqv-iem-lzxrvgj and prescription medicines only as told by [...] and water are not available, use hand casting wheel operator. ? Change your dressing as told by [...] foot a (more content not included)... Normal [facility] ED Patient Summaryon 023 ED Patient Summary (Inserted Image. Marylu ble to display) [place] [id number] Patient Discharge Instructions Person Information Name: CUCO THOMAS Age: 27 Years Arrival Date: 11/04/2022 21:10:12 Discharge Diagnosis: Fingertip avulsion Primary Care Physician: JONATAN STEINBERG, Sherri Milligan Provider Information Primary Provider: Advanced Set Up And Charger:Elena PANDEY, Bud Ferrari The exam and treatment you received in the Emergency Department were for an urgent problem and are not intended as complete care. It is important that you follow up with a doctor, nurse practitioner, or physician?s orthopedic assistant for ongoing care. If your symptoms become worse or you do not improve as expected and you are unable to reach your usual health care provider, you should return to the Emergency Department. We are available 24 hours a day. CUCO THOMAS has been given the following list of patient education materials, prescriptions and follow-up instructions: Follow-up Instructions: With: Address: When: Sherri CHEUNG [address] [place], [place] [address], [place] [address] Business (1) In 3 days 11/07/2022 Comments: [...] opioids can be used to help relieve xvqkqxxa-lu-mhdhdx pain and are often prescribed following a [...] ? Safely (more content not included)... Normal [facility] Consent for Treatmenton 10-13 Consent for Treatment [id number]:127 Normal [facility] PAP ACOG PANEL 2: 21 to 29on 05-21-2022 . . Normal [facility] Comment on above: Performed By: #### [id number] #### [facility] [address] [place] [address] Dr. Jewels Looney Age Gdln ACOG Testing - [facility] Comment on above: Performed By: #### 4 [id number] #### [facility] [address] [place] [address] Dr. Jewels Looney DIAGNOSIS: Comment Normal [facility] Comment on above: Result Comment: NEGA TIVE FOR INTRAEPITHELIAL LESION OR MALIGNANCY. Performed By: #### 4 [id number] #### [facility] [address] [place] [address] Dr. Jewels Looney Methodology: Comment Normal [facility] Comment on above: Result Comment: This liquid based ThinPrep(R) pap test was screened with the use of an image guided system. Performed By: #### 4 [id number] #### [facility] [address] [place] [address] Dr. Jewels Looney Note: Comment [facility] Comment on above: Result Comment: The Pap smear is a screening test designed to aid in the detection of premalignant and malignant conditions of the uterine cervix. It is not a diagnostic procedure and should not be used as the sole means of detecting cervical cancer. Both false-positive and false-negative reports do occur. . Performed By: #### 4 [id number] #### [facility] [address] [place] [address] Dr. Jewels Looney Performed by: Comment Normal [facility] Comment on above: Result Comment: Rosita Haines, Boarding Specialist (ASCP) Performed By: #### 4 [id number] #### [facility] [address] [place] [address] Dr. Jewels Looney Reflex Criteria: Comment [facility] Comment on above: Result Comment: The HPV DNA reflex criteria were not met with this specimen result therefore, no HPV testing was performed. . Performed By: #### 4 [id number] #### [facility] [address] [place] [address] Dr. Jewels Looney Specimen adequacy: Comment Normal [facility] Comment on above: Result Comment: Sati sfactory for evaluation. Endocervical and/or squamous metaplastic cells (endocervical component) are present. Performed By: #### 4 [id number] #### [facility] [address] [place], [place] [id number] Dr. Jewels Looney Reminderson 01-19-2022 Reminders - From: Hayes Moura MD To: [facility] - Clinical; Sent: 01/16/2022 15:19:01 EST Show [...] and declines any questions or concerns. Normal [facility] Coding Summary.on 12-31-2021 Coding Summary. CD:[id number] [id number] +PGhlYWQ+GH1OGMXxU68imBLqb E4JU5jATM9PGJQWLKSGIK1MFN3 wrMB6BYmlJ1UcsrRy TpdvdIUrQG38MGd7SHJ9hOmeYD psvW8xnWRvE1u1ZzGqIK63fS94 ZEvaZPVhTcY9MuBemijvyINr Z6ycHlUbpRLsPyq+PHRhYmxlIH juPSLkEJglXFAjHgWueSwmTT7v Xd0hKYWzKJLmqMxvyLXjEmFy b0woNSCtAWixAF2luDboE4GqrV G5QMQns1v7Oj48fIM+PHRkIHN0 iOezXHmli956BsHbj4zuIEA8 aYAmFVqsTWS8O99ro9E5TYGlAB BcOPT7zLG8aX6ogJuhsatuY4Hf qNWfOuH4AYT9cBMfxN7mnEih opiqxY7kUuj+U60FXT3OLVCCFH 3EVdp1R3QpMyuzvDI+GE75EDYl XR06kYUsgGIwe0higQx0VrIp DYAnUCN6qDzdEYraj4DiVPLiJ8 2rePCyo2J9WELpcRkkeTHtRkDb dIX8kU1sGQsqzvbjd3zbgpkw Akxda6tjgr99oH12F16vQTmgGI CpWDU8DVWrWXAieVuqwu0csN0o Ii8+RVskf6vay6rblLh0EqMt ZORueyQvcAnpIWH9g3OmYn51O7 DdcJyog8HaIpv3yv05cAHuo4B4 yZV4QZsfLVTrsR6aGKfsZbI9 QVMhBzRnuO50hUAkGXibJj4svK zbwZnjDN1cIVLxxpenFNMptR6b HBJquVSkpNpaIM7wHXLslobw v990VdHlAGY0CLWanYPpN5CvrV 1mKaAhRFWlQMOsC0NnmIGnUQys O854DTcoHkX8HEFgraQtK6Bq RWFxxDsjQjA7d2A2Xj0Bb1Gidx xlYTF6VSxwXMBkTdUzIxVoIuV9 A9IgTbr7HRCwzEkkHN9tE8Ag IKZnxnawmukevTR7VYFzBELpwX 82dGDdAEtqDx1dw9Q9w639IGAi XDJuzI15Xy8gmYcvWCMolRUC fR7ygndmc4fbcoopYvEzFMJjZQ w2KJy9DMPdeRqsRnRjFSY0EfP3 QMS5wQFzlX7xuFjwqqmvzX4j Oyc+U62trX5bGDX7QSH9qfxnWV NsbtIpFO54SW16D7HvUgujbBGo bGU+UXFzpvRazJlqMN3zYoUp f4sel9QvJQkzO1FuDSAbCIxvZh v0IDVcILK6mKU5oH3rMULqBYku u4H9nHM0Q9WvvtGjip1xl5ac TXAdVUapP11kpWTkd3U7KIAfeK M5BZPazQiuHrIthO32Ndt+PGNv cZnpr0SmUtgpk7opf6mkdOt3 CbNsIDLeqlKzhEzjMNC3b0RuQc 41D24tFUvaNZXnAIOmUJSbQMYt gSegzn1nmW6mEo6+PGNvbCB3 mOK5wG1sRFCeKxB9BTbmV130Dd UlpZErGzlqd0loo6inhIe2HxUd FFVhskAttChmZDA4f9FrZl84 Q64yQKroNRNeZJKhOHPkXQDmoM ypun5hbD2fIk2+QP1fj1vktk46 cP77rMJ+CGJsKLA4fSngQFcw TOUhtQ1nNVgvYnS7NRAmKwGhxJ 42nVTxLZsdSg3tqHdttXduXS2s QXSdjpfrd832DlYlm3sbEIAo rCWzDPriFPO8Y05yx7O5MHZyVK XqUJP2iOG3cC6ppIinydaemYTs qSdoncElwJfmGRclUJnzU146 IHRvcDsnPlBhdGllbnQgTmFtZT z2U8BsJsf1KMFnhGedEJ9adHLp SFgsYf2orChvhSyyMK1vOKCj xgtkz875XnKne0rdQUEelHAqKU wzHKS5B03ay3R3QQHtWMIyYSS7 iDU0aP0ulUmtncorkWImjXhi hmHzrRfyESlbPWulA479VQXlxE lrAfLtqaRgNABamBM0TQ42SK91 zIMof0J8iYO6Z5RmULVmmbzk pvsvmUP5ABGxXZFpvV10Gq0oqW kwNd2nXDMpGWG1NRNzkDEuL9Tt fJ1aUfXbCHGbDZDeF3IpuAWm GQjhE787TOvxMsJ3BEXfqaGzS2 GjSIXryImyLgZ8v6E0Dr3GK1H3 IF18KW81zAYmf6Q9pPE7F1Wg LFPtqcvqsulwkFR7BGEwCWEiqH 19Wk5gmMytRq3xUDPnIHJ4QSZz cGBmG2AthK7vGiXlTXGzFBZx R2FkiHQnABaaK429NKgqQuX3EM DpxeRtO3HaIAQxrKwgFzS3m3K2 Ui0KWFi1ZV67YX60jDQoz7Z1 bAR1K6GaQXDmijejodfeqNK6RS HgYKUcqQ97Um3moIiyRu5wCASg PZK3DFZtoTViL3XrtF9uKqBg DLZkQBCbH9ZuhMToUHoiC511BM bbOyC6AWIanoZoW6SiYKIupJlb BgP2q7F1Vo3IRUDbMO49AHW9 lQW8OY53PU86P9PzGubwnOYctN U+PHRhYmxlIHdpZHRoPScxMDAl YvKiuRztSJ9kHm7fWMVpALCe zPnenGPpOrQjx2izTUKrOIzkJT 2xsNeeY5RtwIW5OSAht9v8Jd91 N03iH3JxnMG+HVEkmQO8uRL8 yW3eWxMvYnN5ZNqfP130AoJycA PaOgcje4vge1uqkAk5KaX2VSAn ekEgcQfwINS7b8AyEe08G68k IHdpZHRoPSIxNSUiIHZhbGlnbj 1oxY6dYf1+TXThqRO2iDR6uW1n EbIqEeK6WUjxP513QmHfmWDa Omzvb0rtt1aryAc8KfTrVJKkre VlcAjrEOH5u4TtQr22S9HrgAuj m4UsZpf1dl74kGOdq4J1cIJ4 Q0PtGXUcojcvaXUviVviCC6aXF IcivevEKJfmF1pUGDdJ9w1ZyWo QqV6QAyxA6RzorI5BXGhhDBe AAfeGUE2H34va0A1FDVtDRRqRL Z3sJB5zO7bkTcvlvgehMIzpUjn mlPhnHheFZobTCfdH390HWRj tAgdDEQiqY4bYZZirABxjAhoOS 2iQNYrtrozOdRNJIDMK97IQVCY Q5ARNI4xPesnsFJ+PHRkIHN0 kSmfWByzURGhiV8dWZEbI7t6Yn MxGvK2YFuhS4AkECIikidkMe66 nY9aQkUnMzV9OJjkP8AflbF0 OEVuiRSlQOrkDJT0T68ts7S9DH GeCVQoENX4aUI7zD9clRlatlmw bGVmdDsgdmVydGljYWwtYWxp C065FEVzsCxjVpU6PdNpHzU2HA C5A4NqGnl3OMBrzWbfFU6hgKPo KSrkMw8piOhpbZetET5yRZGu cjyaCEQxeW0rQWTvzKCfkHhiRA 2lMVCioxopr895OtBzTCW9MGFq hUUkM5LjlW8qDcNcYROgRBAw W0ZztYDcVWbpM205ZPodUsJ2QD EyggSiA6PeXLOndMrwFmO2j0M4 Lf3kCIBPTOZqwlrbmIB+PHRk TKB2oUkdSLiwAIDelY1gVWYfG6 y7IyVzYwB2UFrwF9SmEMGzymtz Yp28sG1aKfNuFlR9JPzwE7Hh osQ6LPKijMBsQImaDRI0A25zt0 N4QASvEKCrJEN7mJM4jT8viIsn bjogbGVmdDsgdmVydGljYWwt IHreC164XCQdjNpiZvTvrGSpAR wvdGQ+FZBbRKI9qQteQOdqQUQv qG4jAHFaH2f8JiHiEwX7CCaf Y0MxMPInychgKy25nA0gZwPqHl C1RVicE1MzgbJ0QAVxgOZoDNow NLQ7E85zu5B4IRWiFDRwIHI7 vHZ1kV0utCwsgwahpKGteVnpeq UkkQhtPOdhBGvjQ174BZOnxRjy VcevAeTShj2mAG9oPngmvKU+ DC11on77Z4PuZxyvBqb4ECEkWC H0rUM8oY5vNIYrMHgyq7W8rBP6 Q3TzypLekx8tb1rzYQYpIZry A18nyFRsv1G7YMRcuJT5WBVdjH nvZwSfjW63Wgd+EVOvgYyqs5Jt Bwhzp1xbb6mpqJh3JhXfCDKw pbZedAafVWX7i7ZrTo78F06qZR hpGQPkTXSlJYKkIEJccHouls7s pC6hWb8+UHEqoXL3sNA9iO8p JyHnCkV7DNtxH876WxFltBKkAp xke0dre8bevTd7HpTmASZbnlTy fOomTKZ6u5FuWo21Q6ZfbYzl p1VxRye9wv29lKFsx2E3vYH4M5 ZoGCFmuoybdYLiaDljSR0kMBGu qsriVKXsyG1zIOUkR9d5AuKh OvF3DZzkX9IeuwD7CUMdvRKiQQ KdwTUMvR6kqhdfd7srlhueHiYh ZKUjWXo1OMp5FVPixTspQbZx LGM5JwG9RWU9bXQvjM7auCdezj ixkD7dNma+GTq6f8kbbWTnRW4t uDL9IO00YL54oWGib9V3vXZ2 U8JeENHmazmuuwgfsUA7ANHdFI PrqQ92Pe2vvJbbQt5yAEAuBGV9 BZSenRFaH8QfeK1aEnLxINYy MTUyX1QarWFpDXtzV036UHhvUy Q1VZFogtMnA8ImJBMktUqfQfS9 b8X6Rn5YYI75CJ65ZQ38zANw z6N6cRE5T8ZuVMQzlgwutqhkwO X8FWGgWFCmoN34Jl2xhXftOf1o YJWkXIH9KRYceKEjF8NenT2k EyHaBHXuXOZmM0BpoNVoWIuzH5 55KLigAbK8PDBssvBxZ9YbPZXz zEbaCyQ5p3D9Nf4KPg87HZ39 QY21tPIid0N0iIE0Z5YcPJCctj xwvytrsJF0VFXoMOYleJ52Nq5j wMliEi1fQYBcNII9BEHdmTUl E9KsfK8bMyIuCYLpZQCuB0GnaR IkEKhiI856QDbbSfT4GNArliRc W7MpTGYywGalWqM5o1D3Xv1L KUvvsgf1L9XbLueuoRB+PC90YW SnZV56kQDfhYAxl8eljOn8JcHu AYZsYBS5lKeeZXeeq7BzJCMd Y29s (more content not included)... Normal [facility] Family Medicine Office/Clini c Noteon 12-27-2021 Family [...] Tobar to record this visit. JEAN CARLOS group insurance specialist and provider reviewed before signing. Completed by: Rosa Isela Rouse/Angeli Ignacio. Pated by Priyanka Mosley, Quality Plasterer [employer]. Follow-up No qualifying data available Problem List/Past [...] acel/tetanus ad (more content not included)... Normal [facility] Comment on above: Result Comment: Elec tronically Signed By: Hayes Moura MD\.br\Date and Time Signed: 12/27/21 15:46 EST\.br\Electronically Co-Signed By: Priyanka Mosley\.br\Date and Time Co-Signed: 12/26/21 22:49 EST Keegan 01-02-2017 CNOV Office Visit (AGEXPHUD) CLAUSCUCO TEE ([id number]) 1995 FDate Time Provider Bqrfmygkcd34/22/17 2:30 PM FANNY GROSS (DESMOND) AGEXPHDANAY During your visit today, we recorded the [...] 875 MG-POTASSIUM CLAVULANATE 125 MG TABLETFanny Gross, CNPKatalin Renato, EMOTIONAL SUPPORT TEACHER 01/02/2017 2:39 PM SignedBP 125/75 Pulse 79 [...] Yes. To reduce yoursymptoms, you can:?Take an nivn-oon-rsrcwxm pain reliever to reduce the pain?Rinse your [...] pulsating irrigation device (sample brand names: [employer] HydroPulse,[employer] Sinusense Water Pulsator) ? These are battery-powered [...] 4 - HivesDate Reviewed: 01/02/2017Reviewed by: Fanny ([facility]) Renato - Fully AssessedReason for Visit: Sinus Problem [...] 875 MG-POTASSIUM CLAVULANATE 125 MG TABLET Fanny Gross, DESMOND Patient education: Sinusitis in adults (The Basics) [...] reduce your symptoms, you can: ?Take an uzft-hxh-kclhdbr pain reliever to reduce the pain ?Rinse [...] with your doctor This topic retrieved from [facility] Patient education: Rinsing out your [...] ?A pulsating irrigation device (sample brand names: [employer] HydroPulse, [employer] Sinusense Water Pulsator) ? These are battery-powered [...] out your nose. This topic retrieved from [employer] ordered this encounter Disp Refills Start End AMOXICILLIN 875 MG-POTASSIUM CLAVULA* 20 t* 0 01/02/2017 01/12/2017 Route: ORAL Sig: Take 1 tablet by mouth every 12 hours for 10 days.Disposition: Return if symptoms worsen or fail to improve.Follow-up and Disposition History RecordedEncounter Number: [id number] Status:Closed by FANNY GROSS CNP on 01/02/17 [facility] PROGRESSon 01-02-2017 PROGRESS HNO ID: [id number] thor: Fanny (Desmond) Arleyervice: (none)Author Type: Nurse [...] MG-POTASSIUM CLAVULANATE 125 MG TABLETFanny Gross CNP [facility] CNOVon 11-12-2016 OV Office Visit (AGEXPHUD) CUCO DEVLIN ([id number]) 1995 FDate Time Provider Clvcuvhyhy72/2/17 8:15 AM FANNY GROSS (DESMOND) AGEXPHDANAY During your visit today, we recorded the [...] acute - ICD9: 464.00, ICD10: J04.0- see Layne Gross CNPPatient information: Cough, runny nose, and [...] too much?Breathing in harsh chemicals, such as oracle financials consultant or gasoline?Drinking too much alcohol or smoking [...] Other causes of laryngitis are treated on wznow-ra-wqlg basis.-Voice rest is used for acute laryngitis, [...] 4 - HivesDate Reviewed: 11/12/2016Reviewed by: Fanny (Desmond) Renato - Fully AssessedReason for Visit: Sore [...] Laryngitis, acute [J04.0]Order(s):ALERE STREP A TEST (AG) [[id number]] Order #: [id number] THROAT CULTURE [SQTHRCUL] Order #: [id number] FUTURE lidocaine viscous (LIDOCAINE VISCOUS) 2 % [...] much ?Breathing in harsh chemicals, such as oracle financials consultant or gasoline ?Drinking too much alcohol or [...] causes of laryngitis are treated on a awgo-wu-vdvw basis. -Voice rest is used for acute [...] to do for your baby. Retrieved from [employer] ordered this encounter Disp Refills Start End LIDOCAINE 2 % MUCOSAL SOLUTION 100 * 0 11/12/2016 Route: ORAL Sig: Take 5 mL by mouth four times daily as needed for Pain (swish and spit, do NOT swallow).Disposition: Return if symptoms worsen or fail to improve.Follow-up and Disposition History RecordedEncounter Number: [id number] Status:Closed by FANNY GROSS CNP on 11/12/16 [facility] PROGRESSon 11-12-2016 PROGRESS HNO ID: [id number] thor: Fanny (Desmond) Arleyervice: (none)Author Type: Nurse [...] ICD9: 464.00, ICD10: J04.0- Written educational material givenDESMOND Higginbotham [facility] Throat Cultureon 11-12-2016 Throat Culture Test performed at [facility] No group A beta streptococci cultured. Normal [facility] Comment on above: Performed By: #### C THRT ####[facility] [place], [place] [address] Vital Signs Date Time Vital Sign Value Performing Clinician José Miguel hendrix 12-26-2021 13:47-0500 Blood Pressure Location Hayes Gudimella [facility] 12-26-2021 13:47-0500 Body temperature 96.8 [degF] Hayes Gudimella [facility] 12-26-2021 13:47-0500 Diastolic blood pressure 72 mm[Hg] Hayes Gudimella [facility] 12-26-2021 13:47-0500 Heart rate 67 /min Hayes Gudimella [facility] 12-26-2021 13:47-0500 Respiratory rate 16 /min Hayes Gudimella [facility] 12-26-2021 13:47-0500 SaO2% (BldA) [Mass fraction] 98 % Hayes Gudimella [facility] 12-26-2021 13:47-0500 Systolic blood pressure 112 mm[Hg] Hayes Gudimella [facility] Encounters Encounter Date Encounter Type Care Provider Facility Start: 02-14-2023 End: 02-14-2023 ambulatory AMBAR VIVAS Not Available Start: 01-16-2023 End: 01-16-2023 ambulatory CHEYENNE WHITT Not Available Start: 11-04-2022 End: 11-05-2022 Emergency department patient visit Gorge Castro [facility] Start: 05-14-2022 End: 05-14-2022 ambulatory AMBAR VIVAS . Facility: Start: 12-26-2021 End: 12-27-2021 ambulatory MD Hayes Moura Facility[facility] Start: 12-26-2021 End: 12-26-2021 Lab Drop off Hayes Aranala [facility] Start: 12-26-2021 End: 12-26-2021 Patient encounter procedure Hayesmami Moura [facility] Start: 11-12-2016 End: 11-13-2016 Ambulatory FANNY (DESMOND) [facility] Start: 11-12-2016 End: 11-12-2016 Ambulatory FANNY (DESMOND) [facility] Procedures Date Procedure Procedure Detail Performing Clinician Start: 02-11-1998 Adenoid excision Hayes Moura Immunizations Immunization Date Immunization Notes Care Provider Parisa martínez 04-16-2020 SARS-CoV-2 (COVID-19 ) mRNA-1273 vaccine Hayes Gudimella [facility] 11-16-2019 influenza, injectabl e, quadrivalent, contains preservative Hayes Gudimella [facility] 08-28-2019 tetanus toxoid, reduced diphtheria toxoid, and acellular pertussis vaccine, adsorbed Hayes Gudimella [facility] NEGATED: Highlighted row has not occurred!12-26-2021 influenza virus vaccine, unspecified formulation Hayes Gudimella [facility] Payers Date Payer Category Payer Unknown [id number] 2.16.84 [id number] 1993 Unknown [id number] 2.16.8 [id number] 1993 Unknown [id number] 2.16.8 [id number] 1993 Unknown [id number] 2.16.8 [id number] 1993 Unknown [id number] 2.16.8 [id number] 1993 Unknown [id number] 2.16.840 [id number] 1993 Unknown [id number] 1959 Unknown [id number] Unknown [id number] Social History Date Type Detail Facility Start: 12-26-2021 Tobacco smoking status Ex-smoker (fi nding) [facility] Comment on above: denies denies Tobacco smoking status Never [facility] Comment on above: denies denies Sex Assigned At Female [facility] Functional Status Date Assessment Result Facility 12-26-2021 Functional Status N/A [facility] Clinical Note 01-19-2022 Note Date & [...] Locations R1: This test was performed at: [facility], [address] [place] [address], [facility] , , [facility] Comment on above: Performed By: #### [id number] #### [facility] [address] [place] [id number] Clinical Note 12-29-2021 Note Date & Type [...] Locations R1: This test was performed at: [facility], [address] [place] [address], [address] [place] [address], [facility] Comment on above: Performed By: #### [id number] #### [facility] [address] [place] [id number] Evaluation + Plan note 12-26-2021 Note Date & Type Note Facility 12-26-2021 Evaluation + Plan note Diagnostic Tests PendingFluid Culture 12/26/21 [facility] Evaluation + Plan note Note Date & Type Note Facility Evaluation + Plan note No data available for this section [facility] Hospital Discharge instructions Note Date & Type Note Facility Hospital Discharge instructions No data available for this section [facility] Progress note Note Date & Type Note Facility Progress note No data available for this section [facility] Family Medicine [place] Summary Purpose Family History No Family History Records FoundNo Family History Records FoundNo Family History Records FoundNo Family History Records FoundNo Family History Records Found Advance Directives No Advanced Directives Records FoundNo Advanced Directives Records FoundNo Advanced Directives Records FoundNo Advanced Directives Records FoundNo Advanced Directives Records Found Additional Source Comments INFORMATION SOURCE (unrecogn ized section and content) DATE CREATED AUTHOR 08/06/2017 [facility] DATE CREATED AUTHOR AUTHOR'S ORGANIZ ATION [facility]17[facility] DATE CREATED AUTHOR AUTHOR'S ORGANIZ ATION 05/21/2022 [facility] DATE CREATED AUTHOR AUTHOR'S ORGANIZ ATION 11/16/2022 [facility] DATE CREATED AUTHOR AUTHOR'S ORGANIZ ATION 02/15/2023 [facility] EPIC Patient Care team informatio n (unrecognized section and content) Personnel Name: Sherri CHEUNG MD Address: Address: [address] [place] [address] Personnel Name: Sherri CHEUNG MD Address: Address: [address] [place] [address] Personnel Name: Sherri CHEUNG MD Address: Address: [address] [place], [place] [id number] Personnel Name: Sherri CHEUNG MD Address: Address: [address] [place] [address] Personnel Name: Sherri CHEUNG MD Address: Address: [address] [place] [address] Personnel Name: Sherri CHEUNG MD Address: Address: [address] [place] [address] FOR RECORDS PERTAINING TO PATIENTS WHO ARE [...] BE BASED ON THE PRIMARY CLINICAL RECORDS. [facility] [employer] [facility]. provides no warranty or guarantee of the accuracy or completeness of information in this document.
[2023-03-14 09:31] LABS: Basophils Percent Auto 0.4 % (0.2-2.0); Eosinophils Percent Auto 0.5 % (0.9-7.0); Hematocrit 36.1 % (36.0-48.0); Hemoglobin 11.7 g/dL (12.0-16.0); Immature Granulocytes Abs Auto 0.03 10^3/uL (0.00-0.03); Immature Granulocytes Pct Auto 0.4 % (0.0-0.5); Lymphocytes Absolute Auto 1.1 10^3/uL (1.2-3.8); Lymphocytes Percent Auto 13.7 % (20.5-60.0); Mean Corpuscular HGB Conc 32.4 g/dL (29.9-35.2); Mean Corpuscular Hemoglobin 29.5 pg (26.7-34.0); Mean Corpuscular Volume 91.2 fL (81.0-99.0); Mean Platelet Volume 9.5 fL (9.5-13.5); Monocytes Absolute Auto 0.4 10^3/uL (0.3-0.8); Monocytes Percent Auto 4.5 % (1.7-12.0); Neutrophils Absolute Auto 6.6 10^3/uL (1.4-6.5); Neutrophils Percent Auto 80.5 % (43.0-75.0); Platelet Count 307 10^3/uL (150-450); Red Blood Count 3.96 10^6/uL (4.20-5.40); Red Cell Distribution Width 13.7 % (11.0-15.0); White Blood Count 8.2 10^3/uL (4.0-11.0)
[2023-03-14 13:23] LABS: Glucose 1 Hour 111 mg/dL
== END 2023-03-14 07:56 | disposition home or self-care (01) ==
LOC: LAB 07:56
PROVIDERS: Visit Provider Obstetrics & Gynecology
DX: Z13.1 Encounter for screening for diabetes mellitus (principal)
CPT/HCPCS: 36415; 82950; 85025

== ENCOUNTER 2023-03-18 08:01 | Outpatient (OUT) | payer BC, SELFPAY ==
--- NOTE | 2023-03-18 08:03 | US_ITS ---
[address] [address] Patient Name: CUCO THOMAS MRN: [id number] date: 1995 Sex: F Assigned Patient Location: [facility] Current Patient Location: [facility] Accession/Order Number: [id number] Exam Date: 03/18/2023 08:05 Report Date: 03/18/2023 08:52 At the request of: CHEYENNE WHITT Procedure: US OB follow up EXAMINATION: US OB follow up, US OB incomplete anatomy HISTORY: ECHOGENIC FOCI COMPARISON: 02/14/2023 FINDINGS: position: Cephalic presentation, longitudinal lie Heart rate: 140 bpm Amniotic fluid: Subjectively normal Anatomy: Previously identified echogenic cardiac focus is no longer seen US/US OB follow up IMPRESSION: Interval resolution of previously identified right ventricular echogenic focus Electronically authenticated by: STORM ROSE Date: 03/18/2023 08:52
--- OUTSIDE RECORDS SUMMARY | 2023-03-18 08:04 | XMS_ITS | CCD ---
Author Name Unknown Address [address] [facility] [address] [place] [address] Organization [facility] Care Team Providers Care Classification And Treatment Director Name Role Phone FANNY GROSS (TWENTY ONE DEALER) Unavailable Unavailab le MOSNEAFANNY Griffin (TWENTY ONE DEALER) Unavailable Unavailab le IMCA Unavailable Unavailable FANNY GROSS E Unavailable Unavailable Sherri CHEUNG Primary Care Physician [phone] AMBAR MCGRAW Admitting Unavailable AMBAR MCGRAW Attending [facility] Ferrari Primary Care Unavailable AMBAR MCGRAW Consulting Unavailable MD Zeny Hayes Attending Unavailable MD Zeny Hayes Admitting Unavailable Gorge Castro Attending Unavailable MD Zeny Hayes Attending Unavailable MD Zeny Hayes Attending Unavailable MD Zeny Hayes Admitting Unavailable AMBAR VIVAS Attending Unavailable CHEYENNE WHITT Attending Unavailable CHEYENNE WHITT Attending Unavailable Allergies Allergy Classification Reported Allergen(s) Allergy Type Date of Onset Reaction(s) Facility (2 sources) Sulfonamides (Antibiotic); Translations: [SULFA (SULFONAMIDE ANTIBIOTICS)] Propensity to adverse reactions to drug (disorder) 7 AOF [facility] Other [place] Repository (7 sources) Sulfonamides (Antibiotic); Translations: [sulfa drugs] Drug allergy [facility] (1 source) Sulfonamides (Antibiotic) Drug allergy (disorder) [facility] Repository Medications Current Medications Medication Drug Class(es) Dates Sig (Normalized) Sig (Original) clotrimazole 10 mg/ml topical cream (6 sources) Azole Antifungal Start: 12-26-2021 clotrimazole Top 1% Crm 1 lenin, Topical, BID, 24 gram, Refill(s) 0, [id number], 175, cm, 12/26/21 13:50:00 EST, Height/Length Dosing, [...] pharyngitis, unspecified; Translations: [Acute pharyngitis, unspecified] Onset: 10-02-2017 Episodic Results Test Name Value Interpretation Reference Range Facility ED Note-Physicianon 11-12-19 23 ED Note-Physician Basic Information Time Seen: Elena PANDEY, Bud Vega 11/04/2022 21:19 Chief Complaint Pt [...] and Complexity of Problems Differential Diagnosis: [] MDM Data External documents reviewed: Not applicable My [...] day(s), # 14 cap(s), Refills(s) 0, Pharmacy: [facility] #[id number], 173, cm, 11/04/22 21:16:00 EDT, Height/Length Dosing, 90.6, kg, 11/04/22 21:16:00 EDT, Weight Dosing Disposition Plan Patient Discharge Condition Stable Discharge Disposition To home Discharge Prescription List Prescriptions cephalexin 500 mg Cap, 500 mg= 1 cap(s), Oral, q12hr Follow-up With When Contact Information Sherri CHEUNG In 3 days 11/07/2022 EDT [facility] [address] [place] [id number] Business (1) Additional Instructions: Call the office [...] seen and evaluated by the physician assistant cook. Attending physician was present in the emergency department and supervised care. This visit was performed by both the physician and an APC. I performed all aspects of the MDM as documented. This report was transcribed using voice recognition software. Every effort was made to ensure accuracy, however, inadvertently computerized machine joiner cementer mistakes may be present. Appropriate healthcare PPE was used in evaluating this patient. The patient was placed in a mask. The healthcare provider was wearing mask, gloves, and util (more content not included)... [facility] Comment on above: Result Comment: Elec tronically Signed By: Bud Parker PA-C\.br\Date and Time Signed: 11/04/22 22:25 EDT\.br\Electronically Co-Signed By: Gorge Castro MD\.br\Date and Time Co-Signed: 11/11/22 20:46 EDT Discharge Instructionson Discharge Instructions [id number]:12 7 [facility] ED Clinical Summaryon 2022 ED Clinical Summary (Inserted Image. Marylu ble to display) [place] [id number] ED Clinical Summary Person Information Name: CUCO THOMAS Gui Richelle/[facility] Age: 27 Years : 1995 Sex: Female Language: Hebrew PCP: Sherri CHEUNG MD Marital Status: Single [...] 11/04/2022 22:37:58 11/04/2022 22:37:58 11/04/2022 22:37:58 ADDRESS: [address] [place] [phone] PHYS DOC NOTES: MEDICAL INFORMATION: Prescriptions Given: New Medications [id number], [address] [place], [place] [id number], [phone] cephalexin (cephalexin 500 mg Cap) 1 Capsules [...] Follow up: With: Address: When: Sherri JONATAN [address] [place] [address] [address] [address] Business (1) In 3 days 11/07/2022 Comments: [...] or worsening symptoms. DIAGNOSIS: Fingertip avulsion [facility] ED Patient Education Noteon 11-05-2022 ED [...] even if your condition improves. ? Take rzuq-kty-xhhygqt and prescription medicines only as told by [...] and water are not available, use hand devops solutions architect. ? Change your dressing as told by [...] foot a (more content not included)... [facility] ED Patient Summaryon 023 ED Patient Summary (Inserted Image. Marylu ble to display) [place] [id number] Patient Discharge Instructions Person Information Name: CUCO THOMAS Age: 27 Years Arrival Date: 11/04/2022 21:10:12 Discharge Diagnosis: Fingertip avulsion Primary Care Physician: JONATAN STEINBERG, Sherri Milligan Provider Information Primary Provider: Advanced Winding Machine Operator:Bud Parker PA-C The exam and treatment you received in the Emergency Department were for an urgent problem and are not intended as complete care. It is important that you follow up with a doctor, nurse practitioner, or physician?s assistant cook for ongoing care. If your symptoms become worse or you do not improve as expected and you are unable to reach your usual health care provider, you should return to the Emergency Department. We are available 24 hours a day. CUCO THOMAS has been given the following list of patient education materials, prescriptions and follow-up instructions: Follow-up Instructions: With: Address: When: Sherri CHEUNG [address] [place], [place] [address] [phone] Business (1) In 3 days 11/07/2022 Comments: [...] opioids can be used to help relieve qtxzhcvn-wr-aaofel pain and are often prescribed following a [...] ? Safely (more content not included)... [facility] Consent for Treatmenton 10-13 Consent for Treatment [id number]:127 [facility] PAP ACOG PANEL 2: 21 to 29on 05-21-2022 . . Normal [facility] Comment on above: Performed By: #### 4 [id number] #### [facility] [address] [place] [address] Dr. Jewels Looney Age Gdln ACOG Testing - Normal [facility] Comment on above: Performed By: #### 4 [id number] #### [facility] [address] [place] [address] Dr. Jewels Looney DIAGNOSIS: Comment [facility] Comment on above: Result Comment: NEGA TIVE FOR INTRAEPITHELIAL LESION OR MALIGNANCY. Performed By: #### 4 [id number] #### [facility] [address] [place] [address] Dr. Jewels Looney Methodology: Comment [facility] Comment on above: Result Comment: This liquid based ThinPrep(R) pap test was screened with the use of an image guided system. Performed By: #### 4 [id number] #### [facility] [address] [place] [address] Dr. Jewels Looney Note: Comment [facility] Comment on above: Result Comment: The Pap smear is a screening test designed to aid in the detection of premalignant and malignant conditions of the uterine cervix. It is not a diagnostic procedure and should not be used as the sole means of detecting cervical cancer. Both false-positive and false-negative reports do occur. . Performed By: #### 4 [id number] #### [facility] [address] [place] [address] Dr. Jewels Looney Performed by: Comment Normal [facility] Comment on above: Result Comment: Rosita Haines, Buyer Grain (ASCP) Performed By: #### 4 [id number] #### [facility] [address] [place] [address] Dr. Jewels Looney Reflex Criteria: Comment Normal [facility] Comment on above: Result Comment: The HPV DNA reflex criteria were not met with this specimen result therefore, no HPV testing was performed. . Performed By: #### 4 [id number] #### [facility] [address] [place] [address] Dr. Jewels Looney Specimen adequacy: Comment Normal [facility] Comment on above: Result Comment: Sati sfactory for evaluation. Endocervical and/or squamous metaplastic cells (endocervical component) are present. Performed By: #### 4 [id number] #### [facility] [address] [place] [address] [address] Jewels Looney Reminderson 01-19-2022 Reminders - From: Hayes Moura MD To: [facility] - Clinical; Sent: 01/16/2022 15:19:01 EST Show [...] and declines any questions or concerns. [facility] Coding Summary.on 12-31-2021 Coding Summary. [id number] Gh0bWw +PGhlYWQ+NP4ESBHvO73dkSOrw V2PD4xCIY3VLXGHXFTBDH5NSW1 ppDW6KEycX6HiqfFt BdcbdBDfMW35ESi8GUT8vKdmVW htwU2mrXRuU7o2DeCuCT49gI98 QEehVGTyCbG1IvXigqnjmJGu S1iqFtZpeBMaHoh+PHRhYmxlIH gfGGDsUFceBHZrYzRkeVykZC7w Uf1oNJWlEWSrwRkbvQNbFsJv r0zyLDTtNBgfNL4jkZdnA2QurE S1GTWwn7w3Wy82lDW+PHRkIHN0 aIcxHXazq638RiBir8thWET4 lKCwNLctKPI8A09hh3J6ZCXlFO XhEIF0mGR0fK5lzWmgmbryR9Cv iXBwXsW2YEF6oZLeeZ1gaJog arqzkU5iYih+R46SLO2DPGBYIO 6QYbf0R3LuCyqaeOV+OE52DQHp ED15sUYgtQIcp6vikPq0JfBq ZJNsMSM7lAzqCNdie6HfOVMoD5 1ytBJkv1R2LCQalSopfPXmDpAd vUV5gO2xBYozzkknc0aplhhk Bosse7vsya82aQ44D34iAQyyGA BsFYF7AYTzIMZsiJhkui2teM4b Ii8+CQtof3ltq3xzsEi6VaIq GJQkppKxtZlpJSE0p2SzFj72S9 ZxyFtay2TaYkq4hc83nBIun0W2 cGV2GIjvVPPxvX2aLHlpGiZ3 IQOyWaIfrM83cSTrJZimRp1oxR pmrYjrUU1lNQWmdwhhZUKuiG0l CIKpbNJvrAoqPG6cXQUumdhv u109GrRbQNT4NBYqfWVrJ8ZvhQ 9tUsNnOHUgKXOyW4QlkEXwPWjn K455KWrtCbR1AETfnuHjP3Co ULNjqIcfPzS0f7T6Bk7Nk9Tmrh nfMJO2THfcWDJkWeIiZfKeCxV4 S7VgIrq2DDFgjRqdQI4aR2Jc RQBqmwxiydmqiOC6YCShCFPtmV 65eBWwQDetVw0js5O6l130CWRc HJIatM13Yk4luSoyPUIohMSY pG0pbakzy7wupnpyThAqLUEvEV o8EGe2FVGwjXjiIvLoFBE4BiM4 HVB0oDCitW6qyGpstiufpR7z Oyc+W31peB4xXLO1RMI8nnscAV QgpkLcED74IM00I8WhYpmgdYHf bGU+ABZmujTjsVxuYA4cPqYf a7tzl6IrNWzyT6ClTNVqNMfyYp y8DJKbSXH0dCD9jG4aHSCuUGwo n6C0vCL9A6SntsBvve7ht0dv PXAoJBsgF17xpHZgh4F1KQRofV Y4ZCVirVxeIvVchR79Tcp+PGNv yHuer6NqWoddu9wse5qvrDh3 YeKrVVPxbeCvhFtyEFA8g2LsHr 82V91uTWivSRLsGFMnAQGcPEUw eIglfe6ntS5tOq6+PGNvbCB3 oEC7gV6xJYKcLuK3AGkpL769Hs BsrZMrVlkwg1vki1osaDw2UuOb VGLodlQewBqkCGV7t6VeGz74 K76kDCdmAEDyTPMzDYWqHWYeiG uupm2rlI2oMp7+PU6gt4ckrq66 mV25qVW+PIDgUEC0yLeoWAkr AEPktN9oGQufJgN4QKIaSzAouV 84zSUxZBhbLv5hrMsomRzfHS8t JUZnqbhrp416LpUkn0jlQZBi zUFmRMocGNE9V37zr2R5GMQxHQ LwWZA4oCI3qP4goMvbqpqttGQx qGkskxKuvXlvDUnbUVqkH872 IHRvcDsnPlBhdGllbnQgTmFtZT a3U8CoGrt6ROWhlBwxMQ2noBFk ORakUj1cbXywgAnzUK4qKYNv ustaa929UeMrv5liYZAnkRAaKS dgFRK9V08zu0G6OMVjUUEdYJR2 cZT1sE3ceUuomsvvfTLxyMyy mwIbjJicLWnmCKfuY277YCVvsF iaFbFyghZqLKRdtGJ2EV61DJ71 qYWgw6K4sCV6R6EwJXVkmrkq khotcYG5RWHzWPUemN90Us0fxA xrFn6sXBLbYFF7ZKNefQJkP3Gb wU9xZcKnCLQoIWXkP6NapJPi TVsqX697RBzeBnY4YWOhdxZaM3 QjYNAynGjhFxM7z7Q3Et2AX4H2 YB60MM23fSVek6K8mGU7T9Ut MZWwctzyaokkrNH8FZDuZYVguS 10Ab4wkMddSi7sZFNlSXM1KNWs vOAfW7WyuO3wZzYzWEPmJXWu H2KkfTDhXBdyT545WPnrOjT4QW NequMfW3OnGOQloXasMqH0k8K8 Eo0SLHc0UH47WK49cUJnw4K6 yQC2K3ExDCRzvbxnxsxziQL2FC UzSWHizM81Ea6aaDfdDm8mLBMx GAK0HAKixZCcA8BaoJ7qUvFm VYKuAKBwT7HqcMRiBUlbP666ML mwPqD5TRWotrMlU8IzEUAjwCms LcY9n5V7Qn3ZOUIvZV33BUH8 eAF6UU87AY86O7OjHvytwUBogC U+PHRhYmxlIHdpZHRoPScxMDAl DsBtnEznQK3vQq4uJNYkDOTv eIkjgDUhGgObb3oxURDkQXtjJM 6cqNckS2QbeDJ5YTUkb3v4Fk68 D01pT8MtaBH+VOAedAH9hMW1 iS9iYoGkHzI2BSzrV231DvNqwT KkKplzp4tia9ijdUl2IrZ9SYEo jxQjlQytJMO7l5CzLr90I25p IHdpZHRoPSIxNSUiIHZhbGlnbj 4vlQ8mUl9+AAIosVZ2mJP8aY0y JyOkKjO6GIllW015IuVhiGBo Asnfi5hvo8grxYj6UvOrWNNroi JfdGtpNJS1g6PbEl61B3AeeDul j5AqZuz7zc74yGXxb3T2mQZ1 L6VrSVVueblaoDTypFzoMQ7gQX YeebtiDDUssG7nXOAsF1n1EvGw PxG7GGvbK6OkpoI0SRHdbKSf HRjsNXQ8C36so9Q5DLAmOLDuIO Y3vAO3xK2lbTujtwzzlZYqqZan zgKxjEdgWSfxBNtvN081DEDw tFqaWGLzuW4xHTJofOIjmJyvOH 2dCGYirumuRuDVXVKPO15KYDTQ Z8UZWS9dOomqnLE+PHRkIHN0 gGnqGXytQEIeoD0qJEYaN5t8Cz AsCrT1CVuiY2PhQRZheqeaIt01 oI9fElHmRtS2MOkaK2RrarK0 NDWncSJlLNsiCZS6M95kl5Y3GN UdCTBoXEY0oPN3pD5hsSwoclmw bGVmdDsgdmVydGljYWwtYWxp M175UIZidJhfGtO8LcPfVvT4PT R0S4QzQbd7HEMehAfwBP6yhHBh URhzHp8zyFgahNwyTJ2uOAWg dlxuYAYfyC9gJNYpeAAylAzsVQ 5uJYDqvnioe049InNrWCV8WMTu eYGzQ8FqqJ4vZkUiRYTmTBVi K8LlgTTvJStwE817ZMljSmP6LU LatiLpP8UpGELosKdpRiY7o3U3 Qt5qLTHWKAUnppbqsSQ+PHRk JCN2zXqcTJplTRXhiX2qOMMuO7 x7ZuSjXqJ7FJqgD2WdGDPslqru Sm73pK8vGgTgJeB2YIhvI0Kp lkL8AAWbxWMsTRniAPC2V34qk8 A0GJGzFWDfLOD3zPM6lB4ibInb bjogbGVmdDsgdmVydGljYWwt TVjaS011ITFpnVynMwYwxOYsOE wvdGQ+IBElHZX4mTagNVpiYZUq dP6iDWDmQ4t5QnVdJlO5LUma F9WvAQOavtbpZk29bS1wJuAfLo Y3IMusQ4ZhxnZ6ARBmjRGqJFli THH6Y17gg7S4CHZcUJRjAEA3 eLF7kT9muVaeotbibATwbDifyy YiqLhbXSblFOwfF043FXGpvAxh VlyfLeKErl4bKO8sRwscdAK+ LT72ac27D9LgTiglSnw3CJQuWM I0eSU3nV2dWOSrWXlqk6F5uBE2 U4YvjbVaob4co3smBKLeORob C02mrPGwh1B2TJDvsGM1JMSydY qdDuFrnL20Tst+SYSmaWuta3Uq Nglrb8hbx3ypxTw5RyBvSEVu syQksFtbFLC0a2BjUl86C85aJO baSDIqBFUmOWSzMRQsrChsty0b zQ4aGc5+LIFzbBZ6mYO5uH1c RiYhVgB5SIowN569HmKimYJxNr fva2wqs8gaqPg5JvVrXSOooqXa bOzzDKO8c8SfLq87G8DrnCtg i0HhJxm1kc81wQMmb7M2nVG2V1 WfMJSkzfsesBDjcXiaZH6mCHJt syogUQYmkB9wVNStT7q6ImYu OcQ7RDvwP5YmelP1HSUlhTAmNL TwiBARtX6qsznuf4cujupjQaGo KGNkAUi9SAl7DBUfrYatHhGh GXD5GeX6WAN0pLRyzP5ktQmgbt vznG2lYey+SEd1k5pqiEPsFZ8l lTF0GQ00UO81pVByw9U3yCX4 X0WvNGIojmnvdlsfpZW8ZANfZA BrcA97Yw8acAjwVs6uTQWlDGQ0 ABNlnSChR3ChsE2dNxLvOWRn GCMwN5SfoPQnGWmyR446NDygBu Y1IIUmjwZoC3XxPYKyjKpsRoR4 z9D1Og1CTT54VY32FE78rIJx g7G8mSY1Z1QlBGJcscjixnmrdV W7EPKeRWFykW23Sy6umPlzGw5o SXDfONV1OBJbdUZbE9QyzF0x QuCeQEBzEXFjI9JhqJKmOUvaN9 08WBodEkK3HISezgWbR2WkIOPd oEdkVvU9a2F1Mz7NDx02OD32 TZ71zBUxq2T4kEP5O0ZbTHYbvt jcdowjiFI8HSOcCEDskK74Rh5n kXwgMf9iKLAeAFV9HCIylVYh M5TwrX4wVvWzLOEoFGQxK6BbiW RyYZriF680UFztGaM9PDQsdiQu O3GsLUUngRseZeT9j5P2Ye9M RBgutef9A5QsNzaihXL+PC90YW WsKU32gRVwgGTxt8snqJj2AmHv VSYgRIV7nTjrXQcui6ZpWALb Y29s (more content not included)... [facility] Office/Clini c Noteon 12-27-2021 [...] Tobar to record this visit. JEAN CARLOS administrative program specialist and provider reviewed before signing. Completed by: Rosa Isela Rouse/Angeli Ignacio. Pated by Priyanka Mosley, Quality Class 1 Owner Operator. Follow-up No qualifying data available Problem List/Past [...] acel/tetanus ad (more content not included)... [facility] Comment on above: Result Comment: Elec tronically Signed By: Hayes Moura MD\.br\Date and Time Signed: 12/27/21 15:46 EST\.br\Electronically Co-Signed By: Priyanka Mosley\.br\Date and Time Co-Signed: 12/26/21 22:49 EST RENETTAOVon 01-02-2017 CNOV Office Visit (AGEXPHUD) CLAUSCUCO ([id number]) 1995 FDate Time Provider Hftcbdbnrl31/22/17 2:30 PM FANNY GROSS (DESMOND) AGEXLEONOR During your visit today, we recorded the [...] worsen.- AMOXICILLIN 875 MG-POTASSIUM CLAVULANATE 125 MG TABLETKatsylvia Gross, CNPKatsylvia Gross, TWENTY ONE DEALER 01/02/2017 2:39 PM SignedBP 125/75 Pulse 79 [...] Yes. To reduce yoursymptoms, you can:?Take an csbe-mnr-ykdpdys pain reliever to reduce the pain?Rinse your [...] pulsating irrigation device (sample brand names: Grossan HydroPulse,WaterpiGuarnic Sinusense Water Pulsator) ? These are battery-powered [...] 4 - HivesDate Reviewed: 01/02/2017Reviewed by: Fanny ([facility]) Renato - Fully AssessedReason for Visit: Sinus [...] MG-POTASSIUM CLAVULANATE 125 MG TABLET Fanny Gross, [facility] Patient education: Sinusitis in adults (The Basics) [...] reduce your symptoms, you can: ?Take an bctb-bfr-dwpkswg pain reliever to reduce the pain ?Rinse [...] with your doctor This topic retrieved from [facility] Patient education: Rinsing out your nose with [...] ?A pulsating irrigation device (sample brand names: [employer] HydroPulse, TxVia Sinusense Water Pulsator) ? These are battery-powered [...] out your nose. This topic retrieved from [employer] ordered this encounter Disp Refills Start End AMOXICILLIN 875 MG-POTASSIUM CLAVULA* 20 t* 0 01/02/2017 01/12/2017 Route: ORAL Sig: Take 1 tablet by mouth every 12 hours for 10 days.Disposition: Return if symptoms worsen or fail to improve.Follow-up and Disposition History RecordedEncounter Number: [id number] Status:Closed by FANNY GROSS CNP on 01/02/17 [facility] PROGRESSon 01-02-2017 PROGRESS HNO ID: [id number] thor: Fanny (Desmond) Arleyervice: (none)Author Type: Nurse [...] TABLETFanny Gross CNP [facility] CNOVon 11-12-2016 CNOV Office Visit (AGEXPHUD) CUCO DEVLIN RAE ([id number]) 1995 FDate Time Provider Xoknsfrrtv58/2/17 8:15 AM FANNY GROSS (DESMOND) AGEXPHDANAY During [...] too much?Breathing in harsh chemicals, such as contracting analyst or gasoline?Drinking too much alcohol or smoking [...] 5 to 7 daysCall an ambulance (dial 9-1- in the [place] and [place]) or go [...] Other causes of laryngitis are treated on lsobb-bj-zdau basis.-Voice rest is used for acute laryngitis, [...] Laryngitis, acute [J04.0]Order(s):ALERE STREP A TEST (AG) [[id number]] Order #: [id number] THROAT CULTURE [SQTHRCUL] Order #: [id number] FUTURE lidocaine viscous (LIDOCAINE VISCOUS) 2 % [...] much ?Breathing in harsh chemicals, such as contracting analyst or gasoline ?Drinking too much alcohol or [...] to 7 days Call an ambulance (dial 10-12- in the [place] and [place]) or go [...] causes of laryngitis are treated on a dcle-wq-gtsg basis. -Voice rest is used for acute [...] to do for your baby. Retrieved from [employer] ordered this encounter Disp Refills Start End LIDOCAINE 2 % MUCOSAL SOLUTION 100 * 0 11/12/2016 Route: ORAL Sig: Take 5 mL by mouth four times daily as needed for Pain (swish and spit, do NOT swallow).Disposition: Return if symptoms worsen or fail to improve.Follow-up and Disposition History RecordedEncounter Number: [id number] Status:Closed by FANNY GROSS CNP on 11/12/16 [facility] PROGRESSon 11-12-2016 PROGRESS HNO ID: [id number] thor: Fanny (Desmond) Arleyervice: (none)Author Type: Nurse [...] ICD9: 464.00, ICD10: J04.0- Written educational material givenKatsylvia Gross CNP Normal [facility] Throat Cultureon 11-12-2016 Throat Culture Test performed at [facility] No group A beta streptococci cultured. Normal [facility] Comment on above: Performed By: #### C THRT ####[facility] [place], [place] [address] Vital Signs Date Time Vital Sign Value Performing Clinician José Miguel hendrix 12-26-2021 13:47-0500 Blood Pressure Location Hayes Gudimella [facility] 12-26-2021 13:47-0500 Body temperature 96.8 [degF] Hayes Gudimella [facility] 12-26-2021 13:47-0500 Diastolic blood pressure 72 mm[Hg] Hayes Gudimella [facility] 12-26-2021 13:47-0500 Heart rate 67 /min Hayes Gudimella [facility] 12-26-2021 13:47-0500 Respiratory rate 16 /min Hayes Gudimella [facility] 12-26-2021 13:47-0500 SaO2% (BldA) [Mass fraction] 98 % Hayes Gudimella [facility] 12-26-2021 13:47-0500 Systolic blood pressure 112 mm[Hg] Hayes Gudimella [facility] Encounters Encounter Date Encounter Type Care Provider Facility Start: 03-14-2023 End: 03-14-2023 ambulatory CHEYENNE WHITT Not Available Start: 02-14-2023 End: 02-14-2023 ambulatory AMBAR VIVAS Not Available Start: 01-16-2023 End: 01-16-2023 ambulatory CHEYENNE PERI Not Available Start: 11-04-2022 End: 11-05-2022 Emergency department patient visit Gorge Castro Facility[place] Start: 05-14-2022 End: 05-14-2022 ambulatory AMBAR VIVAS . Facility: Start: 12-26-2021 End: 12-27-2021 ambulatory MD Hayes Moura Facility:[facility] Start: 12-26-2021 End: 12-26-2021 Lab Drop off Hayes Zeny [facility] Start: 12-26-2021 End: 12-26-2021 Patient encounter procedure Hayes Gurajatmelnoy [facility] Start: 11-12-2016 End: 11-13-2016 Ambulatory FANNY (DESMOND) [facility] Start: 11-12-2016 End: 11-12-2016 Ambulatory FANNY (TWENTY ONE DEALER) [facility] Procedures Date Procedure Procedure Detail Performing Clinician Start: 02-11-1998 Adenoid excision Hayes Gudimella Immunizations Immunization Date Immunization Notes Care Provider Parisa martínez 04-16-2020 SARS-CoV-2 (COVID-19 ) [id number] vaccine Hayes Gudimella [facility] 11-16-2019 influenza, injectabl e, quadrivalent, contains preservative Hayes Gudimella [facility] 08-28-2019 tetanus toxoid, reduced diphtheria toxoid, and acellular pertussis vaccine, adsorbed Hayes Gudimella [facility] NEGATED: Highlighted row has not occurred!12-26-2021 influenza virus vaccine, unspecified formulation Hayes Gudimella [facility] Payers Date Payer Category Payer Unknown [id number] 2.16.84 [id number] 1995 Unknown [id number] 2.16.8 [id number] 1995 Unknown [id number] 2.16.8 [id number] 1995 Unknown [id number] 2.16.8 [id number] 1995 Unknown [id number] 2.16.8 [id number] 1995 Unknown [id number] 2.16.84 0.1.951672.3.579.2.1259 1993 Unknown [id number] 2.16.840 .1.652578.3.579.2.1259 1993 Unknown [id number] 2.16.840 .1.235906.3.579.2.1259 1959 Unknown [id number] Unknown [id number] Social History Date Type Detail Facility Start: 12-26-2021 Tobacco smoking status Ex-smoker (fi nding) [facility] Comment on above: denies denies Tobacco [facility] status [facility] Comment on above: denies denies Sex Assigned At Female [facility] Functional Status Date Assessment Result Facility 12-26-2021 Functional Status N/A [facility] Clinical Note 01-19-2022 Note Date & [...] Locations R1: This test was performed at: [facility], [address] [place] [address], [id number] , , [facility] Comment on above: Performed By: #### [id number] #### [facility] [address] [place] [id number] Clinical Note 12-29-2021 Note Date & Type [...] Locations R1: This test was performed at: [facility], [address] [place] [address], [id number] , , [facility] Comment on above: Performed By: #### [id number] #### [facility] [address] [place] [id number] Evaluation + Plan note 12-26-2021 Note Date & Type Note Facility 12-26-2021 Evaluation + Plan note Diagnostic Tests PendingFluid Culture 12/26/21 [facility] Evaluation + Plan note Note Date & Type Note Facility Evaluation + Plan note No data available for this section [facility] Hospital Discharge instructions Note Date & Type Note Facility Hospital Discharge instructions No data available for this section [facility] Progress note Note Date & Type Note Facility Progress note No data available for this section [facility] Summary Purpose Family History No Family History Records FoundNo Family History Records FoundNo Family History Records FoundNo Family History Records FoundNo Family History Records Found Advance Directives No Advanced Directives Records FoundNo Advanced Directives Records FoundNo Advanced Directives Records FoundNo Advanced Directives Records FoundNo Advanced Directives Records Found Additional Source Comments INFORMATION SOURCE (unrecogn ized section and content) DATE CREATED AUTHOR 08/06/2017 [facility] DATE CREATED AUTHOR AUTHOR'S ORGANIZ ATION 08/17/2017 [facility] DATE CREATED AUTHOR AUTHOR'S ORGANIZ ATION 05/21/2022 [facility] pital DATE CREATED AUTHOR AUTHOR'S ORGANIZ ATION 11/16/2022 [facility] DATE CREATED AUTHOR AUTHOR'S ORGANIZ ATION 03/15/2023 [facility] EPIC Patient Care team informatio n (unrecognized section and content) Personnel Name: Sherri CHEUNG MD Address: Address: [address] [place] [address] [address] [place] [address] Personnel Name: Sherri CHEUNG MD Address: Address: [address] [place] [address] [place] [address] Personnel Name: Sherri CHEUNG MD Address: Address: [address] [place] [address] [address] Personnel Name: Sherri CHEUNG MD Address: Address: [address] [place] [address] [place] [address] Personnel Name: Sherri CHEUNG MD Address: Address: [address] [place] [address] [address] Personnel Name: Sherri CHEUNG MD Address: Address: [address] [place] [address] [place] [address]- FOR RECORDS PERTAINING TO PATIENTS WHO ARE [...] BE BASED ON THE PRIMARY CLINICAL RECORDS. [facility], [facility]. provides no warranty or guarantee of the accuracy or completeness of information in this document.
--- NOTE | 2023-03-18 08:05 | US_ITS ---
[address] [address] Patient Name: CUCO THOMAS MRN: [id number] date: 1995 Sex: F Assigned Patient Location: [facility] Current Patient Location: [facility] Accession/Order Number: [id number] Exam Date: 03/18/2023 08:05 Report Date: 03/18/2023 08:52 At the request of: CHEYENNE WHITT Procedure: US OB incomplete anatomy EXAMINATION: US OB follow up, US OB incomplete anatomy HISTORY: ECHOGENIC FOCI COMPARISON: 02/14/2023 FINDINGS: position: Cephalic presentation, longitudinal lie Heart rate: 140 bpm Amniotic fluid: Subjectively normal Anatomy: Previously identified echogenic cardiac focus is no longer seen US/US OB incomplete anatomy IMPRESSION: Interval resolution of previously identified right ventricular echogenic focus Electronically authenticated by: STORM ROSE Date: 03/18/2023 08:52
== END 2023-03-18 08:02 | disposition home or self-care (01) ==
LOC: NOMS 08:01
PROVIDERS: Visit Provider Obstetrics & Gynecology
DX: O28.3 Abnormal ultrasonic finding on antenatal screening of mother (principal)
CPT/HCPCS: 76815; 76816

== ENCOUNTER 2023-05-01 13:26 | Outpatient (OUT) | payer BC, SELFPAY ==
--- NOTE | 2023-05-01 13:28 | US_ITS ---
[address] [address] Patient Name: CUCO THOMAS MRN: [id number] date: 1995 Sex: F Assigned Patient Location: [facility] Current Patient Location: [facility] Accession/Order Number: [id number] Exam Date: 05/01/2023 13:29 Report Date: 05/01/2023 14:25 At the request of: CHEYENNE LORENZO Procedure: US OB growth EXAMINATION: US OB growth HISTORY: LGA COMPARISON: 03/18/2023 TECHNIQUE: Transabdominal sonographic examination was performed for obstetrical and evaluation. FINDINGS: Number: 1 Heart Rate: 136.0 bpm H.B. /min Amniotic Fluid Volume: 8.8 cm, 5th percentile 8.6 cm. Largest fluid pocket 4.0 cm Placental Location: Blank BIOMETRY: BPD: 8.2 cm 32 weeks 5 days , 72% HC: 29.5 cm 32 weeks 4 days, 34% AC: 28.4 cm 32 weeks 3 days, 69% FL: 6.3 cm 32 weeks 4 days , 62% EFW:1989.6 grams; 4 lbs. 6 oz., 65% FL/AC: 22.2 FL/BPD: 77.3 HC/AC: 1.0 GESTATIONAL AGE: Age by EDC: 31 weeks 5 days Age by current US: 32 weeks 4 days RAKEL by current US: 06/22/2023 RAKEL by EDC: 06/28/[address] Lorenzo by the technologist US/US OB growth IMPRESSION: Borderline oligohydramnios *Reference: [facility] Practice Guideline for the performance of Obstetric Ultrasound Examinations, November 11, 2006. Electronically authenticated by: STORM ROSE Date: 05/01/2023 14:25
== END 2023-05-01 13:27 | disposition home or self-care (01) ==
LOC: NOMS 13:27
PROVIDERS: Visit Provider Obstetrics & Gynecology
DX: O36.63X0 Maternal care for excessive fetal growth, third trimester, not applicable or unspecified (principal); Z3A.31 31 weeks gestation of pregnancy
CPT/HCPCS: 76816

== ENCOUNTER 2023-05-02 08:40 | Outpatient (OUT) | payer BC, SELFPAY ==
--- NOTE | 2023-05-02 08:42 | US_ITS ---
[address] [address] Patient Name: CUCO THOMAS MRN: [id number] date: 1995 Sex: F Assigned Patient Location: [facility] Current Patient Location: [facility] Accession/Order Number: [id number] Exam Date: 05/02/2023 08:43 Report Date: 05/02/2023 09:25 At the request of: CHEYENNE WHITT Procedure: US OB amniotic fluid vol EXAMINATION: US OB amniotic fluid vol HISTORY: LOW FLUID COMPARISON: Ultrasound OB growth 05/01/2023 TECHNIQUE: Limited sonographic examination for amniotic fluid volume FINDINGS: Presentation: Cephalic Heart rate: 150 bpm Amniotic fluid: 14.7 cm; largest pocket 6.1 cm. (Normal range 8.6-24.2 cm) GA: 31 weeks 6 days RAKEL: 06/28/2023 US/US OB amniotic fluid vol IMPRESSION: 1. Single live intrauterine . 2. Amniotic fluid volume has increased since yesterday, now within normal limits. Electronically authenticated by: BRITTANIE RAMOS Date: 05/02/2023 09:25
--- OUTSIDE RECORDS SUMMARY | 2023-05-02 08:49 | XMS_ITS | CCD ---
Author Organization [facility] Care Team Providers Care Drum Worker Name Role Phone ELIAS GROSSALIN (DRIVER LICENSE EXAMINER) Unavailable Unavailab le MOSNEAG, FANNY (DRIVER LICENSE EXAMINER) Unavailable Unavailab le IMCA Unavailable Unavailable RENATO FANNY E Unavailable Unavailable Sherri CHEUNG Primary Care Physician [phone] PRETTY MCGRAW Admitting Unavailable PRETTY MCGRAW Attending Unavailable DR CARIDAD RAMOS Primary Care Unavailable PRETTY MCGRAW Consulting Unavailable MD Zeny Hayes Attending Unavailable MD Zeny Hayes Admitting Unavailable Gorge Castro Attending Unavailable MD Zeny Hayes Attending Unavailable MD Zeny Hayes Attending Unavailable MD Zeny Hayes Admitting Unavailable Jessica STEINBERG Alexandra Primary Care Provider PRETTY VIVAS Attending Unavailable CHEYENNE LORENZO Attending Unavailable CHEYENNE LORENZO Attending Unavailable PRETTY VIVAS Attending Unavailable CHEYENNE LORENZO Attending Unavailable Allergies Allergy Classification Reported Allergen(s) Allergy Type Date of Onset Reaction(s) Facility (2 sources) Sulfonamides (Antibiotic); Translations: [SULFA (SULFONAMIDE ANTIBIOTICS)] Propensity to adverse reactions to drug (disorder) 7 AOF [facility] Other [place] Repository (7 sources) Sulfonamides (Antibiotic); Translations: [sulfa drugs] Drug allergy [facility] (1 source) Sulfonamides (Antibiotic) Drug allergy (disorder) [facility] (1 source) Sulfonamides (Antibiotic) Drug Allergy 3 Unknown [facility] Medications Current Medications Medication Drug Class(es) Dates Sig (Normalized) Sig (Original) clotrimazole 10 mg/ml topical cream (6 sources) Azole Antifungal Start: 12-26-2021 clotrimazole Top 1% Crm 1 lenin, Topical, BID, 24 gram, Refill(s) 0, [id number], 175, cm, 12/26/21 13:50:00 EST, Height/Length Dosing, 91.7, kg, 12/26/21 13:50:00 EST, Weight Dosing Start Date: 12/26/21 Status: Ordered ondansetron 4 mg disintegrating oral tablet (1 source) Serotonin-3 Receptor Antagonist Start: 12-17-2022 ondansetron ODT (Zofran-ODT) 4 MG disintegrating tablet Multivitamins with Vitamin B Complex, Vitamin C, [...] 08-17-2020 Episodic Other and delivery including normal (7 sources) ; Translations: [Second trimester ] 05-27-2020 Episodic Other screening for suspected conditions [...] Test Name Value Interpretation Reference Range Facility Urinalysis macro (dipstick) panel (U)Ordered By: Minerva Lee on 03-14-2023 Bilirubin, UA Negative Negative - 4(70) +++ mg/dL [facility] Work Phone: Blood, UA Negative Negative - 50 Jarrett/mcL [facility] Work Phone: Clarity, UA Clear [facility] Work Phone: Color, UA Yellow [facility] Work Phone: Glucose, UA Positive Negative - 1999(110) ++++ mg/dL [facility] Work Phone: Comment on above: 100 Interpretation and review of laboratory results Abnormal [facility] Work Phone: Ketones, UA Negative Negative - 160(16) ++++ mg/dL [facility] Work Phone: Leukocytes, UA Moderate Negative - 500+++ Brooke/mcL [facility] Work Phone: Nitrite, UA Negative Negative - Positive [facility] Work Phone: pH, UA 7.0 5 - 9 [facility] Work Phone: Protein, UA Negative Negative - 1999(20) ++++ mg/dL [facility] Work Phone: Spec Grav, UA 1.010 1 - 1.03 [facility] Work Phone: Urobilinogen, UA 0.2 0.2 - 12 mg/dL [facility] Work Phone: [facility] Work Phone: ED Note-Physicianon 11-12-19 ED Note-Physician Basic Information Time Seen: Bud Parker PA-C 11/04/2022 21:19 Chief Complaint Pt reports she [...] and Complexity of Problems Differential Diagnosis: [] [facility] Data External documents reviewed: Not applicable My [...] day(s), # 14 cap(s), Refills(s) 0, Pharmacy: [facility] #[id number], 173, cm, 11/04/22 21:16:00 EDT, Height/Length Dosing, 90.6, kg, 11/04/22 21:16:00 EDT, Weight Dosing Disposition Plan Patient Discharge Condition Stable Discharge Disposition To home Discharge Prescription List Prescriptions cephalexin 500 mg Cap, 500 mg= 1 cap(s), Oral, q12hr Follow-up With When Contact Information Sherri CHEUNG In 3 days 11/07/2022 EDT [facility] [address] [place] [phone] Business (1) Additional Instructions: Call the office [...] Patient seen and evaluated by the physician dam tender assistant. Attending physician was present in the emergency department and supervised care. This visit was performed by both the physician and an APC. I performed all aspects of the MDM as documented. This report was transcribed using voice recognition software. Every effort was made to ensure accuracy, however, inadvertently computerized program support specialist mistakes may be present. Appropriate healthcare PPE was used in evaluating this patient. The patient was placed in a mask. The healthcare provider was wearing mask, gloves, and util (more content not included)... Normal [facility] Comment on above: Result Comment: Elec tronically Signed By: Bud Parker PA-C\.br\Date and Time Signed: 11/04/22 22:25 EDT\.br\Electronically Co-Signed By: Gorge Castro MD\.br\Date and Time Co-Signed: 11/11/22 20:46 EDT Discharge Instructionson Discharge Instructions [id number]:12 [id number] Normal [facility] ED Clinical Summaryon 2022 ED Clinical Summary [address] [address] ED Clinical Summary Person Information Name: CUCO CARDENAS Richelle/[facility] Age: 27 Years : 1995 Sex: Female Language: Equ[place]inean PCP: Sherri CHEUNG MD Marital Status: Single [...] 11/04/2022 22:37:58 11/04/2022 22:37:58 11/04/2022 22:37:58 ADDRESS: [address] [place] [phone] PHYS DOC NOTES: MEDICAL INFORMATION: Prescriptions Given: New Medications [id number], [address] [place], [place] [id number], [phone] cephalexin (cephalexin 500 mg Cap) 1 Capsules [...] Follow up: With: Address: When: Sherri CHEUNG [address] [place] [address] [address] [phone] Business (1) In 3 days 11/07/2022 Comments: [...] or worsening symptoms. DIAGNOSIS: Fingertip avulsion Normal [facility] ED Patient Education Noteon 11-05-2022 ED [...] even if your condition improves. ? Take cxts-vqy-ohjpaem and prescription medicines only as told by [...] and water are not available, use hand drug safety specialist. ? Change your dressing as told by [...] foot a (more content not included)... Normal [facility] ED Patient Summaryon 023 ED Patient Summary (Inserted Image. Marylu ble to display) [place] [address] Patient Discharge Instructions Person Information Name: CUCO CARDENAS Age: 27 Years Arrival Date: 11/04/2022 21:10:12 Discharge Diagnosis: Fingertip avulsion Primary Care Physician: Sherri CHEUNG MD Provider Information Primary Provider: Advanced Plant Engineering Manager:Elena PANDEY, Bud Ferrari The exam and treatment you received in the Emergency Department were for an urgent problem and are not intended as complete care. It is important that you follow up with a doctor, nurse practitioner, or physician?s dam tender assistant for ongoing care. If your symptoms become worse or you do not improve as expected and you are unable to reach your usual health care provider, you should return to the Emergency Department. We are available 24 hours a day. CUCO CARDENAS has been given the following list of patient education materials, prescriptions and follow-up instructions: Follow-up Instructions: With: Address: When: Sherri CHEUNG [address] [place], [place] [address], [place] [address] Business (1) In 3 days 11/07/2022 Comments: [...] opioids can be used to help relieve ggccxlzf-zw-wmlhqn pain and are often prescribed following a [...] ? Safely (more content not included)... Normal [facility] Consent for Treatmenton 10-13 Consent for Treatment [id number]:127 Normal [facility] PAP ACOG PANEL 2: 21 to 29on 05-21-2022 . . Normal [facility] Comment on above: Performed By: #### [id number] #### [facility] [address] [place] [address] Dr. Jewels Looney Age Gdln ACOG Testing - [facility] Comment on above: Performed By: #### 4 [id number] #### [facility] [address] [place] [address] Dr. Jewels Looney DIAGNOSIS: Comment Normal [facility] Comment on above: Result Comment: NEGA TIVE FOR INTRAEPITHELIAL LESION OR MALIGNANCY. Performed By: #### [id number] #### [facility] [address] [place] [address] Dr. Jewels Looney Methodology: Comment Normal [facility] Comment on above: Result Comment: This liquid based ThinPrep(R) pap test was screened with the use of an image guided system. Performed By: #### 4 [id number] #### [facility] [address] [place] [address] Dr. Jewels Looney Note: Comment Normal [facility] Comment on above: Result Comment: The Pap smear is a screening test designed to aid in the detection of premalignant and malignant conditions of the uterine cervix. It is not a diagnostic procedure and should not be used as the sole means of detecting cervical cancer. Both false-positive and false-negative reports do occur. . Performed By: #### 4 [id number] #### [facility] [address] [place] [address] Dr. Jewels Looney Performed by: Comment Normal [facility] Comment on above: Result Comment: Rosita Haines, Sports Medicine Coordinator (ASCP) Performed By: #### 4 [id number] #### [facility] [address] [place] [address] Dr. Jewels Looney Reflex Criteria: Comment Normal [facility] Comment on above: Result Comment: The HPV DNA reflex criteria were not met with this specimen result therefore, no HPV testing was performed. . Performed By: #### 4 [id number] #### [facility] [address] [place] [address] Dr. Jewels Looney Specimen adequacy: Comment Normal [facility] Comment on above: Result Comment: Sati sfactory for evaluation. Endocervical and/or squamous metaplastic cells (endocervical component) are present. Performed By: #### 4 [id number] #### [facility] [address] [place] [address] Dr. Jewels Looney Reminderson 01-19-2022 Reminders - From: Hayes Moura MD To: [facility] - Clinical; Sent: 01/16/2022 15:19:01 EST [...] and declines any questions or concerns. Normal [facility] Coding Summary.on 12-31-2021 Coding Summary. CD:[id number] Gh0bWw +PGhlYWQ+UK7HBIAvO88jgLIvf N9KL1eAKU4JVYKPYXGBVU4JRJ4 jmPF9IQjzT2RwpcDm PgghsMMuZZ29UKj6FJO1jHidGR twlH9hbOFdV9e7VqQhOB09mN23 QKhlEYIjJeU3ZvZaihqnnSBg R9tyOjEojLPqExa+PHRhYmxlIH xfTMZcLLczIFNcYmNiuDllZV0v Dh9eIANsQPLkfBszsHGrYqEv e5hlTUVhMHqvMB4dqEdmC9VkcE B8HHRbk2d3Fo03eRZ+PHRkIHN0 jLoqYGkhf261ImFgj5nwRVS2 cUEvGAxuTVH4N45cs8G2HNSoAB MrFMP9zDQ7nM6ynVoytbtsW6Mt uZEuLpE9TAC9fWKunK9xsQjd oritsG1jFpc+A33VCC8VVQRGXH 9ZOlv3O0ItDsjxuNQ+CI44DLSg XE02pAWeeNXfr2zrpIk5BrLn FJVyZWL7qSoyZNyud2NhEKMbV4 4flLFbn9Q1HPAqqEtpmQTtUcUt kTP1gH2xACknvnlet3vongra Wvonu7rynv52oK33M41oEDbiFL DlFST8UBZpMTXfqSiopc1hkG0c Ii8+MYxti9dtx0fifBa4JpMw UFRajuBzsVzbSNO3w8IfKm66Y6 MqoEcto8DrKsm1ek78mGRna8C0 yIT8MZymHMVguY7xXVypAaT5 WVXeVnMrxD03vJKsGLiaQq8viB fbiIflFS8fUYGxyygtIQKtdI3w KALqmJKlsKdkZK1vHXDisvay f428GiBbQTJ9AKKlsFUiV6TgtP 8tWsHnGCZoRIUcZ5MgwQIlAWbz S327RHmbLeG1IEPzjcRiD7Sv SRWezExwRpR4x6X0Hw8Im8Uhju fjBKV9KSicKBIkWsAdUqPmPtL0 Z7PaZqn0ILJtcJpfPX6pP6Je CFStwpakymlgiVS9SHGpXDEpbR 03tVMbVFkwQr0jz6W9t406PRYt GNBphX86Sn5xeMerIWSzsKIR kX1iwvqgf6xvofyyQaCxZOAnZG d2EYy1SDAxpNmuJfHmZOR9JvY9 UOE8fPBmvG6fmBvojykmkB7b Oyc+L86rhT6yXQT5ESN9fvzqKQ BuotIpHG02TR48P5YxUuczhHFt bGU+UCVukkOsaNqnQL4wIgYk a6zhg4KpLOaxH6QqEICyLNgsSa e4WHVxMCI1yYO8iL3jHTGgICpd d1S8aDH5S5KkfjQcby9mi7wq EPZxUAcnW13haBAup5C8MOUwcG Z7OYGbkCdvMlHnvE56Pxg+PGNv nCorm6IwDgmbj5ulz8egnNf0 RcTaBHBhqtRlgTmcISF6j3YkIm 49F75hNGvrUJAsPNVbQAQuQKMo nZreuc5qkU4hPm3+PGNvbCB3 zWG8oM6vQYHjGbP1OSasT885Cp YmrEYaYnmtn5oac9bioMp1RwHc ABZozgToaGrkREN4k0JpAo98 E95yNUeiLSUsIVMnXXShQQIqjY yhlv5doO4oFf8+SP2dc9jhjx47 zT62pKC+NNOhURQ2eIwoXAhv MSQfuT4kLExbWnF8YEMoPcLsuL 35tMAaLZofBg6uoRdrgAcaMR6w QBLpkwyyo704SsRbw8wyCHGp dKPaSVemMQU6P42xl4N5TNTmGL MnUNR1gTV2sQ9vcKyajpugjQUy mTkjfrVzcCwjARcsGUfwU398 IHRvcDsnPlBhdGllbnQgTmFtZT u5Q8NyGmq0SMSgjDcnJD9ktLCx HJnaPi8lrDqbdZkhXG4hYCXx dungy997JbBrf4dkIHKseNHaDZ fyMGG2V20ly0S3KMRgUQNyHLS8 bFS8oQ5vxDehvttluLDkkIkh pnSyyYlhGEnsNPriI270SKLodH owNbDqteNjKFOzxEB4VB41OF51 aOMgc0O1mBQ4S5SwUDHheyaf fthnpHE3XIMnUHGacM79Qo2doG qtKd9rJLTmLPE9VEJwnZYkT3Ju xX8bTaSqAQYmIECeA5KlkHOa DZmrU705LOlmGkI3GSOvosUuW9 EcHGVnyJsxMkS1o2A6Ge0UM3S7 NW18WR69zTDqo2A2yDD9S0Kk PVFhvdjltvucjMN7QDQtCUMtsB 52Aw0whVcwZu4qJLPkTRZ5ABBe oCRdT3VuvH5pSxRoWEJlTOTw Z1EfdTEnLPqdH981EYqqDkH9KB RrdgKlG5UqEITyxSxqNkA8t7K9 En5MDFq7FG19AK03bEKrn5F4 pRQ6Y7RlDQSckzopxhgweBU2FI MsGVZutP32Bb9iqHhmVe1sZFSg GNB6JHAbpAJfB4FjjN8zPzVo RDZpYQTnH4VipJYoFGfjW687VI fgAsI2UWZnftIfT1ZbOJXfvBgk VzD8m5V0Pq5LCFHpHR75PRN2 uQD3AN02IE13I5XvPrzvrGPfxC U+PHRhYmxlIHdpZHRoPScxMDAl IqVttNgvUK1tXx7zWHBsWGGj mGydiETfMzOoe8ulHVWhDQweFO 8hlZisB3KxeJQ4OUUyg6e6Wy17 N93fF8TxxGJ+KHCmuGY4dEA4 nS2aRpGoJxO2WBlfL781FxVhfW WcVkcmn1zql9gdbMz2WtR1BHZz ifAzqZjjROW1i9MgWc85U01k IHdpZHRoPSIxNSUiIHZhbGlnbj 9fyW4vZi4+ORTmcIK2hSM8qN6w BaKxGhD9UXtrI763QtVgdAKr Zwmuj0pfq5xapLs0IxImLDUplh RytGarYQX6y0AbHc84B8HwuLtm w1SuUwt8sv05eLQzx0Y4sIT0 L5UxQPDwzuhcoPHlyGufWL1sPG RrrjabIXCoqC8bCFRqW7p4GqAc FzY6PFaqT1KnpsQ2HFTssTPb GJmgHOR0A54it1R8SGAsMPGkZA B9tAP4xV1suKdlmgvxjMKxlKjd qhKqhAftGMtdOCdjJ445LGUo gTiuVRKjbA5dXCIngDUswCsnVC 9pRZRfypszBbZLERVIF11GCWQE X5YIHR8pHdyhmWL+PHRkIHN0 gBdhUVolSVIywL3bPKAoZ1o4Um FvQpZ0NHdfZ9LrFFVzcacjBa00 dD0zTfKcFeX9MFlpE6AdkbS4 UCRmeNNbKIlnPTB6B96it2I1XW UqHLFpCHB3nXH7uN6coHasxats bGVmdDsgdmVydGljYWwtYWxp K650YKDotYheLtZ0RqAwYrC3CE T0J6KeVlb9UYWriMuuKW3xhQJp TRsjLc6smIgvcGihFL5xLWKs thnvQXCsaM4zXEWesXJpaIrzUO 4cAKRgspozc554XaCsDNJ2TFUo qMIcU1FtaN5gNxKyIYKoCWJa A0AhrGEvSYqbM834VBxhFjF6PJ UeqjNdI1UgHOHuyFssTzE0d3H9 Xr4gJBEDSFJmqroxtMQ+PHRk IKT9nHmzLPsxJGAeuS7rNGDvQ3 g2BpHrCuZ1MIkxK5CbIOQjjigr Qz72tQ1dMkToFdE5NQlvM7Wj dzQ1ARTxrVBaRGifPSA8W82na1 J2LZYjFOBqZBX6mWB3dC9pyTza bjogbGVmdDsgdmVydGljYWwt XAkdH929LZEueWtjLhAohCQsAM wvdGQ+CJNdEBS1mCvmZQsfCRPq iA0cHWZbG8i7UnXwOoH7LKsm V2IfVBFhrponGp30dF4aMaOwCd O0KLmnY7FcjaI0EHIikSJbREmo TRQ8Y34tx6R3JZCdJZOaNMQ3 aFE6uX6fbOrnnfnfvGMopGxajn UsdWylOJvnFNgyY322KYFchYst HdgbVtSYyk5uNE0kPjrgeGN+ NL95le05G9IcLyfpZci5DCMuXS E0oLO8pD0mEMNxAEmzm2S8yHN6 Q3MwxpIxkn9wp4oxCOHtTGsq C11hsTUdm8G7JYFhvAY9GDKxwX kkGsTplV73Iyg+TMHrcOack9Kc Iqvnj7nto5blyYw3YbEsJDCd oaJatEorBWP8r2BsUf36E80dWE gtVGFaBNHkYIOhOBKrkUlexi3w iQ7lFy3+RVTsnCA2vIU2yH7w SbVbBrH0HOftO365FfLixAIzUv gkx8fll9tlvPi3VeCoNTFkdqCg rHxcGMH1i9CoQr40S1RonNbo r9LyDij1wn41fKHet1X5xGT2L6 LyMDVbrarudGXtjHygPY3nIDDn tqjyAHEmqE7pQYAzH3b3XkLb PmX4HOptZ4KbgpQ7IYGscBBgZW JxoMVAuH1ucroin0pdysdaDsFs ZPUzWTe5VOs8PTIyyWbdKsWe PLF1NgR5QLH9kMFcrZ5uxQfhbw vwrI8kPef+QFq5n2msgMRxQS6c aAX3ZW50LX02sXDio0N7jDG8 X7XqRHVmwntuhrottYO4QSBzUR PvzA57Ku4fiAlgMd5cAJPkWDL4 VRWtiIEmC1BrkR1yCzOkSZWb KMMjA4ZrzTBcWJmbL259ORugSc J3VLItclOjC5InMOKeoNecSfE8 p0W5Be5MKU14BV78JA47xQKu p8P4vDL3F1KxZKDffhnvsfthtA B0QHYeAAPbiW57Ls4aoUhfKq5u CCFgYNT1IDTcsBYoP9ZrtR0s ZgYeEXWxSAUiP7SgiMYmICnxD0 37EEomLgW0SPTgseIfM8VsFVCy cJmsIkJ0t6N0Ex7CSu66NW24 JT00cCIgb7P1nAN3X9NiQHImwv jfdrxshPW2VDVnGSXqvC83Dq2r cOtgRl7dRRXgTPA2URSqeLLr Y5RpyT1yFsKbVOShIVUgR6BlaV RtHYwgS188NMqfJfB3ZEVkqlOk E4RyIPLyuWulGeX9q9X5Nu6D GWieyqj2I4JjNwyofBL+PC90YW SeDP91iDAaaUDwu6novZz2TpIp UXHbYXI8yEszSHjmu4PeYPDi Y29s (more content not included)... Normal [facility] Family Medicine Office/Clini c Noteon 12-27-2021 [...] Tobar to record this visit. JEAN CARLOS medical communication specialist and provider reviewed before signing. Completed by: Rosa Isela Rouse/Angeli Ignacio. Pated by Priyanka Mosley, Quality Tying In Machine Operator. Follow-up No qualifying data available Problem [...] diphtheria/pertussis, acel/tetanus ad (more content not included)... [facility] Comment on above: Result Comment: Elec tronically Signed By: Hayes Moura MD\.br\Date and Time Signed: 12/27/21 15:46 EST\.br\Electronically Co-Signed By: Priyanka Mosley\.br\Date and Time Co-Signed: 12/26/21 22:49 EST RENETTAZACHkostas 01-02-2017 CNOV Office Visit (AGEXPHUD) CLAUSCUCO TEE ([id number]) 1995 FDate Time Provider Anuwpsapih94/22/17 2:30 PM FANNY GROSS (DESMOND) AGEXPHUD During [...] Yes. To reduce yoursymptoms, you can:?Take an huxi-vfb-jvxrdkg pain reliever to reduce the pain?Rinse your [...] pulsating irrigation device (sample brand names: Grossan HydroPulse,WaterGPX Software Sinusense Water Pulsator) ? These are battery-powered [...] 4 - HivesDate Reviewed: 01/02/2017Reviewed by: Fanny ([facility]) Renato - Fully AssessedReason for Visit: [...] reduce your symptoms, you can: ?Take an lolh-tzh-stjamob pain reliever to reduce the pain ?Rinse [...] with your doctor This topic retrieved from [facility] Patient education: Rinsing out [...] ?A pulsating irrigation device (sample brand names: Penumbraan HydroPulse, MentiNova Sinusense Water Pulsator) ? These are battery-powered [...] to improve.Follow-up and Disposition History RecordedEncounter Number: [id number] Status:Closed by FANNY GROSS CNP on 01/02/17 [facility] PROGRESSon 01-02-2017 PROGRESS HNO ID: [id number] thor: Fanny Banks) Arleyervice: (none)Author Type: Nurse PractitionerType: Progress NotesFiled: [...] MG-POTASSIUM CLAVULANATE 125 MG TABLETFanny Gross CNP [facility] CNOVon 11-12-2016 CNOV Office Visit (AGEXPHUD) CUCO DEVLIN ([id number]) 1995 [facility] Time Provider Skmnyrfoqo66/2/17 8:15 AM FANNY GROSS) AGEXPHUD During your visit today, we recorded [...] too much?Breathing in harsh chemicals, such as manager integrated or gasoline?Drinking too much alcohol or smoking [...] Other causes of laryngitis are treated on cqyud-ze-hpkm basis.-Voice rest is used for acute laryngitis, [...] 4 - HivesDate Reviewed: 11/12/2016Reviewed by: Fanny Bnaks) Renato - Fully AssessedReason for Visit: Sore [...] Laryngitis, acute [J04.0]Order(s):ALERE STREP A TEST (AG) [7516856] Order #: [id number] THROAT CULTURE [SQTHRCUL] Order #: [id number] FUTURE lidocaine viscous (LIDOCAINE VISCOUS) 2 % [...] much ?Breathing in harsh chemicals, such as manager integrated or gasoline ?Drinking too much alcohol or [...] causes of laryngitis are treated on a aiwk-rc-tbnu basis. -Voice rest is used for acute [...] to do for your baby. Retrieved from [facility] ordered this encounter Disp Refills Start End LIDOCAINE 2 % MUCOSAL SOLUTION 100 * 0 11/12/2016 Route: ORAL Sig: Take 5 mL by mouth four times daily as needed for Pain (swish and spit, do NOT swallow).Disposition: Return if symptoms worsen or fail to improve.Follow-up and Disposition History RecordedEncounter Number: [id number] Status:Closed by FANNY GROSS CNP on 11/12/16 [facility] PROGRESSon 11-12-2016 PROGRESS HNO ID: [id number] thor: Fannysylvia Banks) Arleyervice: (none)Author Type: Nurse PractitionerType: Progress NotesFiled: [...] J04.0- Written educational material givenFanny Gross CNP Normal [facility] Throat Cultureon 10-02-2017 Throat Culture Test performed at [facility] No group A beta streptococci cultured. Normal [facility] Comment on above: Performed By: #### C THRT ####[facility] [place] [id number] Vital Signs Date Time Vital Sign Value Performing Clinician Facility 03-14-2023 09:31-0500 Body mass index (BMI) [Ratio] 31.17 kg/m2 Cheyenne Bj DO Work Phone: [facility] 03-14-2023 09:31-0500 Body weight 92.99 kg Cheyenne Bj DO Work Phone: [facility] 03-14-2023 09:31-0500 Diastolic blood pressure 66 mm[Hg] Cheyenne Bj DO Work Phone: [facility] 03-14-2023 09:31-0500 Systolic blood pressure 130 mm[Hg] Cheyenne Bj DO Work Phone: [facility] 12-26-2021 13:47-0500 Blood Pressure Location Hayes Gudimella [facility] 12-26-2021 13:47-0500 Body temperature 96.8 [degF] Hayes Gudimella [facility] 12-26-2021 13:47-0500 Diastolic blood pressure 72 mm[Hg] Hayes Gudimella [facility] 12-26-2021 13:47-0500 Heart rate 67 /min Hayes Gudimella [facility] 12-26-2021 13:47-0500 Respiratory rate 16 /min Hayes Gudimella [facility] 12-26-2021 13:47-0500 SaO2% (BldA) [Mass fraction] 98 % Hayes Gudimella [facility] 12-26-2021 13:470500 Systolic blood pressure 112 mm[Hg] Hayesmami Moura [facility] Encounters Encounter Date Encounter Type Care Provider Facility Start: 04-17-2023 End: 04-17-2023 ambulatory CHEYENNE BJ Not Available Start: 04-04-2023 End: 04-04-2023 ambulatory PRETTY VIVAS Not Available Start: 03-14-2023 End: 03-14-2023 ambulatory CHEYENNE BJ Not Available Start: 03-14-2023 End: 03-14-2023 flow sheet Cheyenne Bj DO Work Phone: [facility] Comment on above: Second trimester pre gnancy Start: 02-14-2023 End: 02-14-2023 ambulatory PRETTY VIVAS Not Available Start: 01-16-2023 End: 01-16-2023 ambulatory CHEYENNE BJ Not Available Start: 11-04-2022 End: 11-05-2022 Emergency department patient visit Gorge Castro Facility:[facility] Start: 05-14-2022 End: 05-14-2022 ambulatory PRETTY VIVAS . 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) [facility] Procedures Date Procedure Procedure Detail Performing Clinician Start: 03-14-2023 Urnls dip stick/tabl et rgnt non-auto w/o micrscp Cheyenne Lorenzo DO Work Phone: Start: 02-11-1998 Adenoid excision Hayes Gudimella Plan of Treatment Date Care Activity Detail Author Start: 04-04-2023 End: 04-04-2023 Patient encounter procedure 04/04/2023 9:10 AM EST Routine [facility] [address] [place] [address] Pretty Vivas PA [address] [place] [address] [facility] Start: 10-12-2022 Influenza vaccination Influenza Vacc ine (#1) [facility] Immunizations Immunization Date Immunization Notes Care Provider Fa cility 04-16-2020 SARS-CoV-2 (COVID-19 ) mRNA-1273 vaccine Hayes Gudimella [facility] 01-12-2020 influenza virus vaccine, unspecified formulation Cheyenne Lorenzo DO Work Phone: [facility] 11-16-2019 influenza, injectable, quadrivalent, contains preservative Hayes Gudimella [facility] 08-28-2019 tetanus toxoid, reduced diphtheria toxoid, and acellular pertussis vaccine, adsorbed Hayes Gudimella [facility] NEGATED: Highlighted row has not occurred!12-26-2021 influenza virus vaccine, unspecified formulation Hayes Gudimella [facility] Payers Date Payer Category Payer Unknown BCBS BCBS [id number] [id number] 2021-Present [phone] [address] [place] [address] [id number] 1993 Unknown [id number] 1993 Unknown [id number] 1993 Unknown [id number] 1995 Unknown [id number] 1993 Unknown [id number] 1993 Unknown [id number] 1993 Unknown [id number] 1993 Unknown [id number] 1993 Unknown [id number] 1993 Unknown [id number] 1959 Unknown [id number] Unknown [id number] Social History Date Type Detail Facility Start: 12-26-2021 Tobacco smoking status Ex-smoker (finding) [facility] Comment on above: denies denies Tobacco smoking status Never [facility] Comment on above: denies denies Sex Assigned At Female [facility] Tobacco smoking status NHIS Tobacco smoking consumption unknown [facility] Start: 10-05-2022 [facility] Start: 1995 Sex Assigned At Not on file [facility] Functional Status Date Assessment Result Facility 12-26-2021 Functional Status N/A [facility] History of Present illness Narrative 03-14-2023 Priscilla Panda LPN - 03/14/2023 9:20 AM EST Note Date & Type Note Facility 03-14-2023 History of Presen t illness Narrative Reason for Appointment: Patient ID: Cuco Cardenas is a 27 y.o. female who presents for Routine Visit Patient presents today for Return OB appointment. Current Medications: has a current medication list which includes the following prescription(s): ondansetron odt. Medical History: Active Ambulatory Problems Diagnosis Date Noted No Active Ambulatory Problems Resolved Ambulatory Problems Diagnosis Date Noted No Resolved Ambulatory Problems No Additional Past Medical History No family history on file. Social History Tobacco Use Smoking status: Not on file Smokeless tobacco: Not on file Substance Use Topics Alcohol use: Not on file Drug use: Not on file History reviewed. No pertinent surgical history. Allergies Allergen Reactions Sulfa Antibiotics Unknown Review of Systems: Review of Systems All other systems reviewed and are negative. Objective Physical Exam Constitutional: Appearance: Normal appearance. She is well-developed. Cardiovascular: Rate and Rhythm: Normal rate and regular rhythm. Pulmonary: Effort: Pulmonary effort is normal. Breath sounds: Normal breath sounds. Abdominal: General: Bowel sounds are normal. There is no distension. Palpations: Abdomen is soft. Tenderness: There is no abdominal tenderness. There is no guarding or rebound. Musculoskeletal: General: No swelling. Normal range of motion. Right lower leg: No edema. Left lower leg: No edema. Neurological: Mental Status: She is alert and oriented to person, place, and time. Skin: General: Skin is warm and dry. Psychiatric: Mood and Affect: Mood normal. Behavior: Behavior normal. Vitals and nursing note reviewed. 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 Vitals: Estimated body mass index is 31.17 kg/m as calculated from the following: Height as of 11/16/22: 5' 8 . Weight as of this encounter: 205 lb. BP: 130/66 Patient's last menstrual period was 09/16/2022. Assessment/Plan Encounter Diagnosis Name Primary? Second trimester Patient presents today for a routine obstetrics appointment. Patient is currently 24w6d . Patient obtained 1hour gtt and CBC this morning. Patient had no complaints at this time. Patient to RTC in 3 weeks for routine OB care. Discussed need for follow up US and order given today. Documented by Priscilla Panda LPN on behalf of: Cheyenne Lorenzo DO documented in this encounter [facility] Clinical Note 01-19-2022 Note Date & Type [...] Locations R1: This test was performed at: [facility], [address] [place] [address], [facility] , , [facility] Comment on above: Performed By: #### [id number] #### [facility] [address] [place] [address] Clinical Note 12-29-2021 Note Date & Type [...] Locations R1: This test was performed at: [facility], [address] [place] [address], [id number] , [place], [facility] Comment on above: Performed By: #### [id number] #### [facility] [address] [place] [id number] Evaluation + Plan note 12-26-2021 Note Date & Type Note Facility 12-26-2021 Evaluation + Plan note Diagnostic Tests PendingFluid Culture 12/26/21 [facility] Evaluation + Plan note Note Date & Type Note Facility Evaluation + Plan note No data available for this section [facility] Evaluation note Note Date & Type Note Facility Evaluation note Diagnosis Second trimester state, incidental documented in this encounter [facility] Discharge instructions Note Date & Type Note Facility Hospital Discharge instructions No data available for this section [facility] Progress note Note Date & Type Note Facility Progress note No data available for this section [facility] Summary Purpose Family History No Family [...] and content) DATE CREATED AUTHOR 08/06/2017 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 [employer] [facility]. provides no warranty or guarantee of the accuracy or completeness of information in this document.
== END 2023-05-02 08:41 | disposition home or self-care (01) ==
LOC: NOMS 08:40
PROVIDERS: Visit Provider Obstetrics & Gynecology
DX: O36.63X0 Maternal care for excessive fetal growth, third trimester, not applicable or unspecified (principal); Z3A.31 31 weeks gestation of pregnancy
CPT/HCPCS: 76815

== ENCOUNTER 2023-05-07 07:18 | Outpatient (OUT) | payer BC, SELFPAY ==
--- OUTSIDE RECORDS SUMMARY | 2023-05-07 07:21 | XMS_ITS | CCD ---
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 Name Role Phone ELIAS GROSSALIN (FOOT PRESS OPERATOR) Unavailable Unavailab le MOSNEAG, FANNY (FOOT PRESS OPERATOR) Unavailable Unavailab le IMCA Unavailable Unavailable RENATO FANNY E Unavailable Unavailable Sherri CHEUNG Primary Care Physician PRETTY MCGRAW Admitting Unavailable PRETTY MCGRAW Attending Unavailable [facility] Ferrari Primary Care Unavailable PRETTY MCGRAW Consulting Unavailable MD Zeny Hayes Attending Unavailable MD Zeny Hayes Admitting Unavailable Gorge Castro Attending Unavailable MD Zeny Hayes Attending Unavailable MD Zeny Hayes Attending Unavailable MD Zeny Hayes Admitting Unavailable Jessica STEINBERG, Alexandra Primary Care Provider [phone] PRETTY VIVAS Attending Unavailable CHEYENNE LORENZO Attending Unavailable CHEYENNE LORENZO Attending Unavailable PRETTY VIVAS Attending Unavailable CHEYENNE LORENZO Attending Unavailable CHEYENNE LORENZO Attending Unavailable Allergies Allergy Classification Reported Allergen(s) Allergy Type Date of Onset Reaction(s) Facility (2 sources) Sulfonamides (Antibiotic); Translations: [SULFA (SULFONAMIDE ANTIBIOTICS)] Propensity to adverse reactions to drug (disorder) 7 [facility] (7 sources) Sulfonamides (Antibiotic); Translations: [sulfa drugs] Drug allergy [facility] (1 source) Sulfonamides (Antibiotic) Drug allergy (disorder) [facility] Rep[facility] (1 source) Sulfonamides (Antibiotic) Drug Allergy 3 Unknown [facility] Medications Current Medications Medication Drug Class(es) Dates Sig (Normalized) Sig (Original) clotrimazole 10 mg/ml topical cream (6 sources) Azole Antifungal Start: 12-26-2021 clotrimazole Top 1% Crm 1 lenin, Topical, BID, 24 gram, Refill(s) 0, [id number], 175, cm, 12/26/21 13:50:00 EST, Height/Length Dosing, [...] UA Negative Negative - 4(70) +++ mg/dL [facility] Work Phone: Blood, UA Negative Negative - 50 Jarrett/mcL [facility] Work Phone: Clarity, UA Clear [facility] Work Phone: Color, UA Yellow [facility] Work Phone: Glucose, UA Positive Negative - 1999(110) ++++ mg/dL [facility] Work Phone: Comment on above: 100 Interpretation and review of laboratory results Abnormal [facility] Work Phone: Ketones, UA Negative Negative - 160(16) ++++ mg/dL [facility] Work Phone: Leukocytes, UA Moderate Negative - 500+++ Brooke/mcL [facility] Work Phone: Nitrite, UA Negative Negative - Positive [facility] Work Phone: pH, UA 7.0 5 - 9 [facility] Work Phone: Protein, UA Negative Negative - 1999(20) ++++ mg/dL [facility] Work Phone: Spec Grav, UA 1.010 1 - 1.03 [facility] Work Phone: Urobilinogen, UA 0.2 0.2 - 12 mg/dL [facility] Work Phone: [facility] Work Phone: ED Note-Physicianon 11-12-19 23 ED Note-Physician Basic [...] and Complexity of Problems Differential Diagnosis: [] [facility] Data External documents reviewed: Not applicable My [...] day(s), # 14 cap(s), Refills(s) 0, Pharmacy: [facility] #[id number], 173, cm, 11/04/22 21:16:00 EDT, Height/Length Dosing, 90.6, kg, 11/04/22 21:16:00 EDT, Weight Dosing Disposition Plan Patient Discharge Condition Stable Discharge Disposition To home Discharge Prescription List Prescriptions cephalexin 500 mg Cap, 500 mg= 1 cap(s), Oral, q12hr Follow-up With When Contact Information Sherri CHEUNG In 3 days 11/07/2022 EDT [facility] [place] [phone] Business (1) Additional Instructions: Call the office [...] seen and evaluated by the physician assistant manager of operations. Attending physician was present in the emergency department and supervised care. This visit was performed by both the physician and an APC. I performed all aspects of the MDM as documented. This report was transcribed using voice recognition software. Every effort was made to ensure accuracy, however, inadvertently computerized insole rasper mistakes may be present. Appropriate healthcare PPE was used in evaluating this patient. The patient was placed in a mask. The healthcare provider was wearing mask, gloves, and util (more content not included)... Normal [facility] Comment on above: Result Comment: Elec tronically Signed By: Bud Parker PA-C\.br\Date and Time Signed: 11/04/22 22:25 EDT\.br\Electronically Co-Signed By: Gorge Castro MD\.br\Date and Time Co-Signed: 11/11/22 20:46 EDT Discharge Instructionson Discharge Instructions [id number]:12 7 Normal [facility] ED Clinical Summaryon 2022 ED Clinical Summary [place] [id number] ED Clinical Summary Person Information Name: CUCO CARDENAS Richelle/[facility] Age: 27 Years : 1995 Sex: Female Language: German PCP: Sherri CHEUNG MD Marital Status: Single [...] 11/04/2022 22:37:58 11/04/2022 22:37:58 11/04/2022 22:37:58 ADDRESS: [address] [place] [phone] PHYS DOC NOTES: MEDICAL INFORMATION: Prescriptions Given: New Medications [facility][id number], [address] [place], [place] [id number], [phone] cephalexin (cephalexin 500 mg Cap) 1 Capsules [...] Follow up: With: Address: When: Sherri CHEUNG [address] [place] [address] [address] [phone] Business (1) In 3 days 11/07/2022 Comments: [...] or worsening symptoms. DIAGNOSIS: Fingertip avulsion Normal [facility] ED Patient Education Noteon 11-05-2022 ED [...] even if your condition improves. ? Take asad-ccn-lnncvmc and prescription medicines only as told by [...] water are not available, use hand supervisor feed mill. ? Change your dressing as told by [...] foot a (more content not included)... Normal [facility] ED Patient Summaryon 023 ED Patient Summary (Inserted Image. Marylu ble to display) [place] [id number] Patient Discharge Instructions Person Information Name: CUCO CARDENAS Age: 27 Years Arrival Date: 11/04/2022 21:10:12 Discharge Diagnosis: Fingertip avulsion Primary Care Physician: Sherri CHEUNG MD Provider Information Primary Provider: Advanced Petrology Teacher:Elena PANDEY, Bud Ferrari The exam and treatment you received in the Emergency Department were for an urgent problem and are not intended as complete care. It is important that you follow up with a doctor, nurse practitioner, or physician?s assistant manager of operations for ongoing care. If your symptoms become worse or you do not improve as expected and you are unable to reach your usual health care provider, you should return to the Emergency Department. We are available 24 hours a day. CUCO CARDENAS has been given the following list of patient education materials, prescriptions and follow-up instructions: Follow-up Instructions: With: Address: When: Sherri CHEUNG [address] [place] [address] [address], [place] [address] Business (1) In 3 days 11/07/2022 Comments: [...] opioids can be used to help relieve zkpqeuby-kv-xnmxrd pain and are often prescribed following a [...] ? Safely (more content not included)... Normal [facility] Consent for Treatmenton 10-13 Consent for Treatment [id number]:127 Normal [facility] PAP ACOG PANEL 2: 21 to 29on 05-21-2022 . . Normal [facility] Comment on above: Performed By: #### 4 [id number] #### [facility] [address] [place] [address] Dr. Jewels Looney Age Gdln ACOG Testing - Normal [facility] Comment on above: Performed By: #### 4 [id number] #### [facility] [address] [place] [address] Dr. Jewels Looney DIAGNOSIS: Comment Normal [facility] Comment on above: Result Comment: NEGA TIVE FOR INTRAEPITHELIAL LESION OR MALIGNANCY. Performed By: #### 4 [id number] #### [facility] [address] [place] [address] Dr. Jewels Looney Methodology: Comment Normal [facility] Comment on above: Result Comment: This liquid based ThinPrep(R) pap test was screened with the use of an image guided system. Performed By: #### 4 [id number] #### [facility] [address] [place] [address] Dr. Jewels Looney Note: Comment Normal [facility] Comment on above: Result Comment: The Pap smear is a screening test designed to aid in the detection of premalignant and malignant conditions of the uterine cervix. It is not a diagnostic procedure and should not be used as the sole means of detecting cervical cancer. Both false-positive and false-negative reports do occur. . Performed By: #### 4 [id number] #### [facility] [address] [place] [address] Dr. Jewels Looney Performed by: Comment Normal [facility] Comment on above: Result Comment: Rosita Haines, Guide Plant (ASCP) Performed By: #### 4 [id number] #### [facility] [address] [place] [address] Dr. Jewels Looney Reflex Criteria: Comment Normal [facility] Comment on above: Result Comment: The HPV DNA reflex criteria were not met with this specimen result therefore, no HPV testing was performed. . Performed By: #### 4 [id number] #### [facility] [address] [place] [address] Dr. Jewels Looney Specimen adequacy: Comment Normal [facility] Comment on above: Result Comment: Sati sfactory for evaluation. Endocervical and/or squamous metaplastic cells (endocervical component) are present. Performed By: #### 4 [id number] #### [facility] [address] [place] [address] Dr. Jewels Looney Reminderson 01-19-2022 Reminders - From: Hayes Moura MD To: [facility] - Clinical; Sent: 01/16/2022 15:19:01 EST [...] and declines any questions or concerns. Normal [facility] Coding Summary.on 12-31-2021 Coding Summary. CD:[id number] Gh0bWw +PGhlYWQ+WI8DBGLlP92wsFHyh M0BK5aQWD8SXCIMEDQQRK5NOF5 bpSZ5RZbtY1GkqiTd YdjktLJgLK98CAp4FLS1lHakJA uzhV2nrDZyE8c7YrAhDF95kM30 KYlfADBgPpJ2HnFibezxzBFz Q3knFjLjqHGsFlr+PHRhYmxlIH nlZLStUBzrHSPlZhTcaUpwWL8h Dk0pLHWeIYEsuHcpjZJsKcPr n5sxFGSaZFzzBU6rxYqoV4GfnY M6HEPzz6o3Xp02rPZ+PHRkIHN0 kUltJKjxt631EhLyf1wySMD1 dJCuRRofXSR9J40fv3G4GCEqCY NmJKV4qML6vI6qvPvsnhafA2Va zCOpJxY1EPV9hZJjgK7faPoh tiotqL6qUrg+O98MMK7XNHBTPK 6ZVll1S6HgCdwkaVW+KJ63FLRe SU12kBIlhUXqb0bdzAj7CtCg BQLbGRI8mLtuUPjlx6BuULVdT1 3rpAZdm2J8VEMoxZsjgOHdNvDx vEQ8aX6mFZosbdgoi0mvnimk Fowtr6lmlc01jX27P80hVWvlBH OiSBU3FXDbASCjcYwvcd2vtK5m Ii8+UUuik4nvy4ihhBv7LaBd WNAcxmCvgWgjTZY9q9XjRe96X6 EmgOmwp6OkOyl4fi12oQUhl1E1 lAZ4AUctAOEwfP4tMCeqPmZ8 VGArPyXzfI04eFWbHLfoKv6ueS yrhIxmUG6xDUZxlwaeEUWakI4q IPIhwFXrpIjnNE5yGBOlerek y348PsWvOQO8WQYsbFGiB3PcuW 7fDcBxXSEnKUMdN0UdlKGpQVpd X100BNbmSzQ7WGRvlyQnP3Wc DUWkxPmyBpQ1w7D7Ya6Of2Nguo feTTU9DFweALBfUlUuSxZzUbL5 G8TaYxh4MSSgxInjGI1nD5Cz NSZcitgwpbzniCR6FGXsRANnsN 07rMVoEIjpEq9in8I6n239OFTz MDSatX91Rq8srXhzBVDpqPHP rC0sndgtr3tqfbzoOcFpILBlOC r8RUb3EGPcpAlvHjAcAVY9CsR9 HDC9iSGptF1zkDitlkgvcL7e Oyc+O63owZ4oRBS6XVJ3tixvVA OuhkTdWK60TS14C8NoDcrqyWJo bGU+IAFbsiPykVbsKP8mOdBk o0zbf5NmPPqcC7YnCWAcAFgdDe s9ZHPcPZJ3mWI4gI6yGQIsJMpj k2Z6sUI7L9JfnrVrhf7cy5gd AUUbDQllU89zmJAxl7E3NFQltD C4TJXteSqhOzKolM85Pqi+PGNv bWttq3KgJukxp8nvy6yehTb2 EjCaSFZmmqJyqJyvMMV9d5KgLy 09S27rHTvmPAStETGwZPLtYEMp gKzdpp3veK4xVg0+PGNvbCB3 iZP6zE2bZRTtAfI9WWsvP950Jh TbzBGiGwycn7jsf7lyfTx4TrXx APUqedSsxIcdIPI0l5KnXx25 H30kCNkaSPTcJGAsWIOuMKZolM scmp9ccA6jRz1+FR8yl7raks48 zO40oIU+VTOfSCC4wPbfQOxx XDZhzD8rGSwcEvB8NNLkXeDsoW 27oDWsQKhjVk6axXafoBbhZZ4a OIZivabmt917GbWhj8ikLXFp mMMaCOekTKB8K14mh6Z5AKCaGJ BaFDG1fMG2vZ0chHhbsxekcXCu tLpmqyKvcGbyVWdyERetN243 IHRvcDsnPlBhdGllbnQgTmFtZT t2M5RbCzc5PYVexIenVY8qvREc DPtjFx6alTrqrNwsNY8dFTCp dlxlx100RsPpu9hkPIMpgIWzSQ stGUO9T71sw7I2ZXNaLAOfFBQ7 pYV3fQ9xxOzaogfwlICogDiq hiFezVrnJOviWOsdF203RXObtC fxYaJqljJzDGYqyHG3CV28DN68 cEAbt9Y2oGK7R5LfYDHsbvzq vtxavLU8EBHvYOTkbF68Bc8tbV zcTd2dFVAjNBP7ZEBmdSCaO3Db bP3aJhLvTTDaUCZwF2PgrMOd QLrsH883NWnaNxK5JLOdelBwF4 TxNYBewJpeZvX4b5T8Vg0XI3P4 SE59WQ95oEWil9H6pSW1U6Cu TKRthwgwnububZJ1BPEfTEBlmM 76Zt7euJlrPl3hFJVyWUB8XBRn hAJqR3HrhG6tIuIsRCBsDVQz A7WlfBTvCNkwH460OTmgIbR3MU JayhYtI4SzARCgsRiwHqZ0x4J1 Jc8IDCr3ZY07YK98qUSuh9S2 kVX4F1MpLHSgkimoknyctRA4VG OfCMLxeA58Kq2ikKwwAv0fBMUg KYB5IQYbnGVdT4PmeX1fWeCu RIQcMAHtE2HvkWZiHWobQ124TD kvAiK9FJSctaDvQ2DoZNAelKtl BrQ1w0R1Ht8KHVLxKN99YFA3 cGY5NO82OA26G2WyJhdteQJalO U+PHRhYmxlIHdpZHRoPScxMDAl RbJliZeeWH2jHd1qWYWgHATu zKgnaZRyOuMlo0xyUGKhPHejRI 6ljUuvR3PxyVV5WYAtr1q3Kh81 Q35qA0NtaKW+IBBdgTE6rSH4 vY5eGeAsFbC5IHmcY701GgHzwR RjXkyow5ewk0szkCf3VtI5TSGx tgHylGhkNTG3i3TiPd73U81g IHdpZHRoPSIxNSUiIHZhbGlnbj 2yjS9hYg3+IDMifPV7iUB0pS7d CxPwHkY5TQekK728WoIazPZd Oolhf9mhq6ktpTi0ApOwBDHlea ZfzJlzKGH9z4KyQo74N3ScyWhd l2AnWuj2xp38gKGgn8L0dFM8 N4JvXZBjgurkgLYbrMxdVY8xOC McyvykSXYtkR6bSCJjX8x5VgBi TgE0TTqzQ1JmqzC7KKPubWXp YQcmWIJ1E71mx1M2MBUnDTYzZA K0wUC7eO1elIkfvumujMRziWyb hhNsqMvaRTkwOVipL729ATDy jZytMIUmzV5hFCTteGLhmJisKW 3iAFRdrzowUyUHAANGZ86PXPPC R0ECFG6fNlduoHF+PHRkIHN0 jQcfAMjwSDEwcV2mTMGlI6x1Th OiVvN5WQtsK2OgBZNolkgvFc17 cM7aFxItOjK0JGghS9HfkbM0 RSRfmTRmANwiGSB1Q99mu1Y5OK UhWIXsTKU3jUD0xL1rzOccaart bGVmdDsgdmVydGljYWwtYWxp R459QSRbyPenZpJ7TmTlKmN5YM V6C2MxAcn5PZNoaYlfGW0omDQr ZJkdNv1xbEkxlQutJO6dAJMs bfivUOPmbK2lRJIynGYtaJarKL 4rNWQbytjog614DjWxTXI1XAJw dXKqY3KibK7wEtClCWPxIVWk N8VscASnMRdrY344ENmpEbD5YE DqqdToJ5QlVMDifWbdCzD8g2R8 Dp3sPUUALGAujzvrmFJ+PHRk GMF0sAiiTHamRAPwnM7kVOBtS5 z1IdJkVsG8NHxoV5CgZEZtuiwp Gg49jM3sFgHwUkH2JBvzG1Sm fmN0BOOurNGuQAgbPIH7Q41et9 R3WCJnXHExUYB3dXW5aL4moXhq bjogbGVmdDsgdmVydGljYWwt BKxzD883TEDjaVjiCdZtxCPdYT wvdGQ+HUNrCAM9lHrqBYwzNIYp qI5yZJOcX7h9PvNgXbB0WTry G0ZpSRAevjimEd82zG2dIfEvKp Z0MKwbD4XbntZ3ERLbpJKnYOwd ZUD6Q78uh1T9HGJeGVDxDHC4 qID7cT1fhFhzooxglGBqmQaidc TufEuwAVnwAMklZ823SVCtzWim NkhtLsZOsm6tLA8sUvcmwCC+ SF45qe88G8BjQxpuIhl0IXMoRB O5xSE2mA9nLVIkSZjyz1J5uVQ4 R5GqctLddn4kf1rcECTqKJdg J70gmIVfv6U3GBXqgHX2PXPffC jaFsXkcP42Ysi+LTPqaVwuz0Pj Ifgoo8lte7rztAv6JbCiBKLt lfKrcQiuOSO4v7ZwDo24H44gLE dpCBAfQMBmSXTaMTUriBkgxx4c oA8nSd9+IQLxrUI5cMR1kY2x IyMzTiT1JBriI356WvFmsKDaIh xnx2rsy4qnfPv7JbXnYDFnmmQe eNgkBLT1u1BpEc07R5LbzFfq q6JnSqn4ie79xNUzb7P4hBO8X2 WgTCXrrvmweSHpeVjxCH2wVEOx mmzqSIAxlC7zVIIiG1j2NvEm DeB2MOfyK8KyyjQ1PTWnqHXmQB TehSFQoI0ppzfdm8bbgzwnLwPc INDeLIo4WNd2NTFxlBmlLuWb ROB4NtS0LFY1iUIjcX6lnYovxp shoT4zDgl+TQy4d0jxeTNdMP6m bZW9KG12IU42mPNyd2V5nDR7 T4BnPUJddyycwyrabRF7AZAwME XmbL08Ym6qxGlsJv8iLBRjAHK5 TEFzlPEbW1JcpN5nSrLwNGBi LPNiF7TrmBDgCGypS781USpmXy K9ALNerpEsS9PfNKSqfKixKeM6 w6W4Le7SCR49DK94LN61mPAf d6Z4hEE2G3ZsFWMryvgsjoifsT D6TBSlYLXvjN46It9knEveMi0i SORcMJO5HKGxjTLaM2NtdW6n DyJkRMIbCBSsF7FzcUZmFTazQ3 08JXpzLbD8XGSmieWmP1FnCJAq bCcxSsQ2e3O1Cg5VIt60OK85 BE83zMVja1E9rQO5D9VfKNWksw edekhmwBI8YDNxBNJdrB78Cn0m jFwpUh1oHZQzIVJ3BSXhqEDv D9OjtL5tXjXpKUTxIKLyX2CgtN NrWUdmL200LOskWeA6SWEsdvOx T1UsJJJvpPngIfD5t0D5Vd4X TFpiyxk3R6DaMhdnnDT+PC90YW UwNG79xNBhcARws2fecJu9AmAv MHUeARZ5aHdhNPxef7NnRXLy Y29s (more content not included)... Normal [facility] Family Medicine Office/Clini c Noteon 12-27-2021 [...] Tobar to record this visit. JEAN CARLOS printing specialist and provider reviewed before signing. Completed by: Rosa Isela Rouse/Angeli Ignacio. Pated by Priyanka Mosley, Quality Childhood Teacher. Follow-up No qualifying data available Problem List/Past [...] acel/tetanus ad (more content not included)... Normal [facility] Comment on above: Result Comment: Elec tronically Signed By: Hayes Moura MD\.br\Date and Time Signed: 12/27/21 15:46 EST\.br\Electronically Co-Signed By: Priyanka Mosley\.br\Date and Time Co-Signed: 12/26/21 22:49 EST RENETTAZACHkostas 01-02-2017 CNOV Office [facility] (AGEXPHUD[facility][id number][facility] 1995 FDate Time Provider Hobdkhqzqy51/22/17 2:30 PM FANNY GROSS (DESMOND) AGEXPHDANAY During [...] Yes. To reduce yoursymptoms, you can:?Take an zqis-bng-xqaagjm pain reliever to reduce the pain?Rinse your [...] pulsating irrigation device (sample brand names: Grossan HydroPulse,WatermxHero Sinusense Water Pulsator) ? These are battery-powered [...] 4 - HivesDate Reviewed: 01/02/2017Reviewed by: Fanny ([facility]) Mosneakathy - Fully AssessedReason for Visit: Sinus Problem [...] reduce your symptoms, you can: ?Take an ombq-riv-rxsvgsr pain reliever to reduce the pain ?Rinse [...] with your doctor This topic [facility] from [facility] Patient education: Rinsing out your nose with [...] ?A pulsating irrigation device (sample brand names: Arasan HydroPulse, NearWoo Sinusense Water Pulsator) ? These are battery-powered [...] to improve.Follow-up and Disposition History RecordedEncounter Number: [id number] Status:Closed by FANNY GROSS CNP on 01/02/17 [facility] PROGRESSon 01-02-2017 PROGRESS HNO ID: [id number] thor: Fanny (Desmond) Arleyervice: (none)Author Type: Nurse [...] MG-POTASSIUM CLAVULANATE 125 MG TABLETFanny Gross CNP [facility] CNOVon 11-12-2016 OV Office Visit (AGEXPHUD) CUCO DEVLIN ([id number]) 1995 [facility] Time Provider Azfswvqxof10/2/17 8:15 AM FANNY GROSS (DESMOND) AGEXPHUD During [...] too much?Breathing in harsh chemicals, such as filter press tender or gasoline?Drinking too much alcohol or smoking [...] Other causes of laryngitis are treated on tttmz-hd-dwsb basis.-Voice rest is used for acute laryngitis, [...] Laryngitis, acute [J04.0]Order(s):ALERE STREP A TEST (AG) [4132849] Order #: [id number] THROAT CULTURE [SQTHRCUL] Order #: [id number] FUTURE lidocaine viscous (LIDOCAINE VISCOUS) 2 % [...] much ?Breathing in harsh chemicals, such as filter press tender or gasoline ?Drinking too much alcohol or [...] causes of laryngitis are treated on a lxga-ds-gjxy basis. -Voice rest is used for acute [...] to do for your baby. Retrieved from [employer] ordered this encounter Disp Refills Start End LIDOCAINE 2 % MUCOSAL SOLUTION 100 * 0 11/12/2016 Route: ORAL Sig: Take 5 mL by mouth four times daily as needed for Pain (swish and spit, do NOT swallow).Disposition: Return if symptoms worsen or fail to improve.Follow-up and Disposition History RecordedEncounter Number: [id number] Status:Closed by FANNY GROSS CNP on 11/12/16 [facility] PROGRESSon 11-12-2016 PROGRESS HNO ID: [id number] thor: Fanny (Desmond) Arleyervice: (none)Author Type: Nurse [...] ICD9: 464.00, ICD10: J04.0- Written educational material DESMOND Karimi [facility] Throat Cultureon 11-12-2016 Throat Culture Test performed at [facility] No group A beta streptococci cultured. Normal [facility] Comment on above: Performed By: #### C THRT ####[facility] [place], [place] [address] Vital Signs Date Time Vital Sign Value Performing Clinician Facility 03-14-2023 09:31-0500 Body mass index (BMI) [Ratio] 31.17 kg/m2 Cheyenne Bj DO Work Phone: [facility] 03-14-2023 09:31-0500 Body weight 92.99 kg Cheyenne Bj DO Work Phone: [facility] 03-14-2023 09:31-0500 Diastolic blood pressure 66 mm[Hg] Cheyenne Bj DO Work Phone: [facility] 03-14-2023 09:31-0500 Systolic blood pressure 130 mm[Hg] Cheyenne Bj DO Work Phone: [facility] 12-26-2021 13:47-0500 Blood Pressure Location Hayes Gudimella [facility] 12-26-2021 13:47-0500 Body temperature 96.8 [degF] Hayes Gudimella [facility] 12-26-2021 13:47-0500 Diastolic blood pressure 72 mm[Hg] Hayes Gudimella [facility] 12-26-2021 13:47-0500 Heart rate 67 /min Hayes Gudimella [facility] 12-26-2021 13:47-0500 Respiratory rate 16 /min Hayes Gudimella [facility] 12-26-2021 13:47-0500 SaO2% (BldA) [Mass fraction] 98 % Hayes Gudimella [facility] 12-26-2021 13:47-0500 Systolic blood pressure 112 mm[Hg] Hayes Moura [facility] Encounters Encounter Date Encounter Type Care Provider Facility Start: 05-01-2023 End: 05-01-2023 ambulatory CHEYENNE BJ Not Available Start: 04-17-2023 End: 04-17-2023 ambulatory CHEYENNE BJ Not Available Start: 04-04-2023 End: 04-04-2023 ambulatory PRETTY SANGEETHA Not Available Start: 03-14-2023 End: 03-14-2023 ambulatory CHEYENNE BJ Not Available Start: 03-14-2023 End: 03-14-2023 flow sheet Cheyenne Bj DO Work Phone: [facility] Comment on above: Second trimester pre gnancy Start: 02-14-2023 End: 02-14-2023 ambulatory PRETTY SANGEETHA Not Available Start: 01-16-2023 End: 01-16-2023 ambulatory CHEYENNE BJ Not Available Start: 11-04-2022 End: 11-05-2022 Emergency department patient visit Gorge Castro Facility:[facility] Start: 05-14-2022 End: 05-14-2022 ambulatory PRETTY VIVAS . Facility: Start: 12-26-2021 End: 12-27-2021 ambulatory MD Hayes Moura Facility:[facility] [place] Start: 12-26-2021 End: 12-26-2021 Lab Drop off Hayes Moura [facility] Start: 12-26-2021 End: 12-26-2021 Patient encounter procedure Hayes Moura [facility] Start: 11-12-2016 End: 11-13-2016 Ambulatory FANNY (FOOT PRESS OPERATOR) [facility] Start: 11-12-2016 End: 11-12-2016 Ambulatory FANNY (FOOT PRESS OPERATOR) [facility] Procedures Date Procedure Procedure Detail Performing Clinician Start: 03-14-2023 Urnls dip stick/tabl et rgnt non-auto w/o micrscp Cheyenne Bj DO Work Phone: Start: 02-11-1998 Adenoid excision Hayes Gudimella Plan of Treatment Date Care Activity Detail Author Start: 04-04-2023 End: 04-04-2023 Patient encounter procedure 04/04/2023 9:10 AM EST Routine [facility] [address] [place] [address] Pretty Vivas PA [address] [place] [place] [address] [facility] Start: 10-12-2022 Influenza vaccination Influenza Vacc ine (#1) [facility] Healthcare Immunizations Immunization Date Immunization Notes Care Provider Fa cility 04-16-2020 SARS-CoV-2 (COVID-19 ) mRNA-1273 vaccine Hayes Gudimella [facility] 01-12-2020 influenza virus vaccine, unspecified formulation Cheyenne Bj DO Work Phone: [facility] 11-16-2019 influenza, injectable, quadrivalent, contains preservative Hayes Gudimella [facility] 08-28-2019 tetanus toxoid, reduced diphtheria toxoid, and acellular pertussis vaccine, adsorbed Hayes Gudimella [facility] NEGATED: Highlighted row has not occurred!12-26-2021 influenza virus vaccine, unspecified formulation Hayes Gudimella [facility] Payers Date Payer Category Payer Unknown BCBS BCBS [id number] 2021-Present [phone] [id number] [place] [address] [id number] 1993 Unknown [id number] 2.16.840.1.140332.3.579.2.593 1993 Unknown [id number] 2.16.840.1.712396.3.579.2.727 1993 Unknown [id number] 2.16.840.1.627201.3.579.2.727 1993 Unknown [id number] 2.16.840.1.402489.3.579.2.727 1993 Unknown [id number] 2.16.840.1.853916.3.579.2.727 1993 Unknown [id number] 2.16.840.1.200238.3.579.2.1259 1993 Unknown [id number] 2.16.840.1.920452.3.579.2.1259 1993 Unknown [id number] 2.16.840.1.306334.3.579.2.1259 1993 Unknown [id number] 2.16.840.1.293991.3.579.2.1259 1993 Unknown [id number] 2.16.840.1.441190.3.579.2.1259 1993 Unknown [id number] 2.16.840.1.383970.3.579.2.1259 1959 Unknown [id number] Unknown [id number] Social History Date Type Detail Facility Start: 12-26-2021 Tobacco smoking status Ex-smoker (finding) [facility] Comment on above: denies denies Tobacco smoking status Never [facility] Comment on above: denies denies Sex Assigned At Female [facility] Tobacco smoking status NHIS Tobacco smoking consumption unknown [facility] Start: 10-05-2022 [facility] Start: 1995 Sex Assigned At Not on file [facility] Functional Status Date Assessment Result Facility 12-26-2021 Functional Status N/A [facility] [place] History of Present illness Narrative 03-14-2023 Priscilla PandaCHIVO - 03/14/2023 9:20 AM EST Note Date [...] nursing note reviewed. Exam conducted with a mobile tester present. Vitals: Estimated body mass index is [...] Cheyenne Lorenzo DO documented in this encounter [facility] Clinical Note 01-19-2022 Note Date [...] Locations R1: This test was performed at: [facility], [address] [place] [address], [facility] , , [facility] Comment on above: Performed By: #### [id number] #### [facility] [address] [place] [address] Clinical Note 12-29-2021 Note Date & Type [...] Locations R1: This test was performed at: [facility], [address] [place] [address], [id number] , [place], [facility] Comment on above: Performed By: #### [id number] #### [facility] [address] [place] [id number] Evaluation + Plan note 12-26-2021 Note Date & Type Note Facility 12-26-2021 Evaluation + Plan note Diagnostic Tests PendingFluid Culture 12/26/21 [facility] Evaluation + Plan note Note Date & Type Note Facility Evaluation + Plan note No data available for this section [facility] Evaluation note Note Date & Type Note Facility Evaluation note Diagnosis Second trimester state, incidental documented in this encounter [facility] Discharge instructions Note Date & Type Note Facility Hospital Discharge instructions No data available for this section [facility] Progress note Note Date & Type Note Facility Progress note No data available for this section [facility] Summary Purpose Family History No Family History Records FoundNo Family History Records FoundNo Family History Records FoundNo Family History Records FoundNo Family History Records Found Advance Directives No Advanced Directives Records FoundNo Advanced Directives Records FoundNo Advanced Directives Records FoundNo Advanced Directives Records FoundNo Advanced Directives Records Found Additional Source Comments INFORMATION SOURCE (unrecogn ized section and content) DATE CREATED AUTHOR 08/06/2017 [facility] DATE CREATED AUTHOR AUTHOR'S ORGANIZ ATION 08/17/2017 [facility] DATE CREATED AUTHOR AUTHOR'S ORGANIZ ATION 05/21/2022 [facility] DATE CREATED AUTHOR AUTHOR'S ORGANIZ ATION 11/16/2022 [facility] DATE CREATED AUTHOR AUTHOR'S ORGANIZ ATION 05/02/2023 [facility] EPIC Patient Care team informatio n (unrecognized section and content) [employer] Relationship Specialty Start Date End Date Alexandra Lopez MD [address] [place] [id number] PCP - General Family Medicine 11/16/22 Reason [...] BE BASED ON THE PRIMARY CLINICAL RECORDS. [employer] provides no warranty or guarantee of the accuracy or completeness of information in this document.
--- NOTE | 2023-05-07 19:12 | US_ITS ---
[address] [address] Patient Name: CUCO THOMAS MRN: [id number] date: 1995 Sex: F Assigned Patient Location: [facility] Current Patient Location: Accession/Order Number: [id number] Exam Date: 05/07/2023 19:16 Report Date: 05/08/2023 07:15 At the request of: CHEYENNE WHITT Procedure: US OB BPP w non-stress EXAMINATION: US OB BPP w non-stress HISTORY: EXCESSIVE GROWTH AFFECTING O36.63X0 COMPARISON: Ultrasound OB growth 05/01/2023, ultrasound OB amniotic fluid volume 05/02/2023 TECHNIQUE: Ultrasound biophysical profile was performed in the radiology department. BREATHING MOVEMENTS: 2.0 GROSS BODY MOVEMENTS: 2.0 TONE: 2.0 QUALITATIVE AMNIOTIC FLUID VOLUME: 2.0 PRESENTATION: BREECH HEART RATE: 125.6 bpm bpm. AMNIOTIC FLUID VOLUME: 12.2 cm GESTATIONAL AGE: 32 weeks 4 days CONCLUSION: Total biophysical profile score 8.0. Electronically authenticated by: BRITTANIE RAMOS Date: 05/08/2023 07:15
[2023-05-07 19:42] VITALS: BP 129/74; PULSE 67
== END 2023-05-07 20:16 | disposition home or self-care (01) ==
LOC: US 07:18 → FBC 19:10
PROVIDERS: Visit Provider Obstetrics & Gynecology
DX: O36.63X0 Maternal care for excessive fetal growth, third trimester, not applicable or unspecified (principal); O41.03X0 Oligohydramnios, third trimester, not applicable or unspecified; Z3A.32 32 weeks gestation of pregnancy
CPT/HCPCS: 76818

== ENCOUNTER 2023-05-10 07:18 | Outpatient (OUT) | payer BC, SELFPAY ==
--- OUTSIDE RECORDS SUMMARY | 2023-05-10 07:20 | XMS_ITS | CCD ---
Author Organization [facility] Care Team Providers Care [place] [employer] Name Role Phone ELIAS GROSSALIN (CROP INSURANCE CLAIMS ADJUSTER) Unavailable Unavailab le MOSNEAG, FANNY ([employer]OP INSURANCE CLAIMS ADJUSTER) Unavailable Unavailab le IMCA Unavailable Unavailable RENATO FANNY E Unavailable Unavailable Sherri CHEUNG Primary Care Physician [phone] PRETTY MCGRAW Admitting Unavailable PRETTY MCGRAW Attending Unavailable [facility] Ferrari Primary Care Unavailable PRETTY MCGRAW Consulting Unavailable MD Zeny Hayes Attending Unavailable MD Zeny Hayes Admitting Unavailable Gorge Castro Attending Unavailable MD Zeny Hayes Attending Unavailable MD Zeny Hayes Attending Unavailable MD Zeny Hayes Admitting Unavailable Jessica STEINBERG, Alexandra Primary Care Provider PRETTY VIVAS Attending Unavailable CHEYENNE LORENZO Attending Unavailable CHEYENNE LORENZO Attending Unavailable PRETTY VIVAS Attending Unavailable CHEYENNE LORENZO Attending Unavailable CHEYENNE LORENZO Attending Unavailable Allergies Allergy Classification Reported Allergen(s) Allergy Type Date of Onset Reaction(s) Facility (2 sources) Sulfonamides (Antibiotic); Translations: [SULFA (SULFONAMIDE ANTIBIOTICS)] Propensity to adverse reactions to drug (disorder) 7 AOF [facility] Repository (7 sources) Sulfonamides (Antibiotic); Translations: [sulfa drugs] Drug allergy [facility] (1 source) Sulfonamides (Antibiotic) Drug allergy (disorder) [facility] Repository (1 source) Sulfonamides (Antibiotic) Drug Allergy 3 Unknown [facility] Medications Current Medications Medication Drug Class(es) Dates Sig (Normalized) Sig (Original) clotrimazole 10 mg/ml topical cream (6 sources) Azole Antifungal Start: 12-26-2021 clotrimazole Top 1% Crm 1 lenin, Topical, BID, 24 gram, Refill(s) 0, [id number], 175, cm, 12/26/21 13:50:00 EST, Height/Length Dosing, [...] UA Negative Negative - 4(70) +++ mg/dL [facility] Work Phone: Blood, UA Negative Negative - 50 Jarrett/mcL [facility] Work Phone: Clarity, UA Clear [facility] Work Phone: Color, UA Yellow [facility] Work Phone: Glucose, UA Positive Negative - 1999(110) ++++ mg/dL [facility] Work Phone: Comment on above: 100 Interpretation and review of laboratory results Abnormal [facility] Work Phone: Ketones, UA Negative Negative - 160(16) ++++ mg/dL [facility] Work Phone: Leukocytes, UA Moderate Negative - 500+++ Brooke/mcL [facility] Work Phone: Nitrite, UA Negative Negative - Positive [facility] Work Phone: pH, UA 7.0 5 - 9 [facility] Work Phone: Protein, UA Negative Negative - 1999(20) ++++ mg/dL [facility] Work Phone: Spec Grav, UA 1.010 1 - 1.03 [facility] Work Phone: Urobilinogen, UA 0.2 0.2 - 12 mg/dL [facility] Work Phone: [facility] Work Phone: ED Note-Physicianon [...] and Complexity of Problems Differential Diagnosis: [] [facility] Data External documents reviewed: Not applicable [...] day(s), # 14 cap(s), Refills(s) 0, Pharmacy: [facility] #[id number], 173, cm, 11/04/22 21:16:00 EDT, Height/Length Dosing, 90.6, kg, 11/04/22 21:16:00 EDT, Weight Dosing Disposition Plan Patient Discharge Condition Stable Discharge Disposition To home Discharge Prescription List Prescriptions cephalexin 500 mg Cap, 500 mg= 1 cap(s), Oral, q12hr Follow-up With When Contact Information Sherri CHEUNG In 3 days 11/07/[address]T [address] [facility] [place] [phone] Business (1) Additional Instructions: Call the office [...] Patient seen and evaluated by the physician gynecological assistant. Attending physician was present in the emergency department and supervised care. This visit was performed by both the physician and an APC. I performed all aspects of the MDM as documented. This report was transcribed using voice recognition software. Every effort was made to ensure accuracy, however, inadvertently computerized well service pump equipment operator mistakes may be present. Appropriate healthcare PPE was used in evaluating this patient. The patient was placed in a mask. The healthcare provider was wearing mask, gloves, and util (more content not included)... Normal [facility] Comment on above: Result Comment: Elec tronically Signed By: Bud Parker PA-C\.br\Date and Time Signed: 11/04/22 22:25 EDT\.br\Electronically Co-Signed By: Gorge Castro MD\.br\Date and Time Co-Signed: 11/11/22 20:46 EDT Discharge Instructionson Discharge Instructions [id number]:12 7 Normal [facility] ED Clinical Summaryon 2022 ED Clinical Summary [place] [id number] ED Clinical Summary Person Information Name: CUCO CARDENAS Richelle/[facility] Age: 27 Years : 1995 Sex: Female Language: Iranian PCP: Sherri CHEUNG MD Marital Status: Single [...] 11/04/2022 22:37:58 11/04/2022 22:37:58 11/04/2022 22:37:58 ADDRESS: [address] [place] [id number] PHYS DOC NOTES: MEDICAL INFORMATION: Prescriptions Given: New Medications [id number], [address] [place], [place] [id number], [phone] cephalexin (cephalexin 500 mg Cap) 1 Capsules [...] Follow up: With: Address: When: Sherri CHEUNG [address] [place] [address] [address] [phone] Business (1) In 3 days 11/07/2022 Comments: [...] or worsening symptoms. DIAGNOSIS: Fingertip avulsion Normal [facility] ED Patient Education Noteon 11-05-2022 [...] even if your condition improves. ? Take sprc-mrf-zfvznne and prescription medicines only as told by [...] and water are not available, use hand rubber extrusion machine operator. ? Change your dressing as told [...] foot a (more content not included)... Normal [facility] ED Patient Summaryon 023 ED Patient Summary (Inserted Image. Marylu ble to display) [place] [id number] Patient Discharge Instructions Person Information Name: CUCO CARDENAS Age: 27 Years Arrival Date: 11/04/2022 21:10:12 Discharge Diagnosis: Fingertip avulsion Primary Care Physician: Sherri CHEUNG MD Provider Information Primary Provider: Advanced Hand Glass Cutter:Elena PANDEY, Bud Ferrari The exam and treatment you received in the Emergency Department were for an urgent problem and are not intended as complete care. It is important that you follow up with a doctor, nurse practitioner, or physician?s gynecological assistant for ongoing care. If your symptoms [...] Follow-up Instructions: With: Address: When: Sherri CHEUNG [address] [place] [address] [address] [address] Business (1) In 3 days 11/07/2022 Comments: [...] opioids can be used to help relieve ilihofbh-pr-rqwjxs pain and are often prescribed following a [...] ? Safely (more content not included)... Normal [facility] Consent for Treatmenton 10-13 Consent for Treatment [id number]:127 Normal [facility] PAP ACOG PANEL 2: 21 to 29on 05-21-2022 . . Normal [facility] Comment on above: Performed By: #### 4 [id number] #### [facility] [address] [place] [address] Dr. Jewels Looney Age Gdln ACOG Testing - Normal [facility] Comment on above: Performed By: #### 4 [id number] #### [facility] [address] [place] [address] Dr. Jewels Looney DIAGNOSIS: Comment Normal [facility] Comment on above: Result Comment: NEGA TIVE FOR INTRAEPITHELIAL LESION OR MALIGNANCY. Performed By: #### 4 [id number] #### [facility] [address] [place] [address] Dr. Jewels Looney Methodology: Comment Normal [facility] Comment on above: Result Comment: This liquid based ThinPrep(R) pap test was screened with the use of an image guided system. Performed By: #### 4 [id number] #### [facility] [address] [place] [address] Dr. Jewels Looney Note: Comment Normal [facility] Comment on above: Result Comment: The Pap smear is a screening test designed to aid in the detection of premalignant and malignant conditions of the uterine cervix. It is not a diagnostic procedure and should not be used as the sole means of detecting cervical cancer. Both false-positive and false-negative reports do occur. . Performed By: #### 4 [id number] #### [facility] [address] [place] [address] Dr. Jewels Looney Performed by: Comment Normal [facility] Comment on above: Result Comment: Rosita Haines, Shotgun Shell Assembly Machine Operator (ASCP) Performed By: #### 4 [id number] #### [facility] [address] [place] [address] Dr. Jewels Looney Reflex Criteria: Comment Normal [facility] Comment on above: Result Comment: The HPV DNA reflex criteria were not met with this specimen result therefore, no HPV testing was performed. . Performed By: #### 4 [id number] #### [facility] [address] [place] [address] Dr. Jewels Looney Specimen adequacy: Comment Normal [facility] Comment on above: Result Comment: Sati sfactory for evaluation. Endocervical and/or squamous metaplastic cells (endocervical component) are present. Performed By: #### 4 [id number] #### [facility] [address] [place] [address] Dr. Jewels Looney Reminderson 01-19-2022 Reminders - From: Hayes Moura MD To: [facility] - Clinical; Sent: 01/16/2022 15:19:01 [...] and declines any questions or concerns. Normal [facility] Coding Summary.on 12-31-2021 Coding Summary. CD:[id number] Gh0bWw +PGhlYWQ+JG4YLBGiI34otNCsk L9GB2kXGE7IAROYPKLUQQ1IID6 gpXW4KVnmX5WwuvRa LgtvvMPbKQ63EPp9EXT0kWagGG pdzT8kjOLwV7l9QwNdYO86tR82 QSmkQMYdHsM4QyQpfhmobFGu V1ieFfYraFOwTpg+PHRhYmxlIH ftMQHyOWegNPIeZmAzfLhePC9g Ls8mRBTqAYCbhBqseQFqOgFn c8rmVUQcDUljOH4mnCcpR3EouP Z4OUXsb9k2Fs77kUF+PHRkIHN0 wPqyNUjvf961HoKox4atONJ0 sVPiXQxxKRX4D01pn4G0BOKyCW XlJVQ6bBQ0qE2oqZhspdlgM3Ae gKGeCjE9HEC6cXEzdP3hpChj rfimeP7uUhm+Z66EIX9HWLWNCT 9WNsz5P6TiPsgaoXF+VQ68POKc YH50gIPlhGBfh5hvaIb1BhYt QTKfQDN5uWdqGLdci4SkOHJhP2 0aaPPjc0C7XTUlaUsfrBSuYpUc aYV1zZ4uNDnhcrfcy1ygqdjo Ashrk7qwbi07jM74A73tUBgpUA GmOZC5NLXdVYJmhBicav6haH0p Ii8+VOroh9lql8webSe8XjPj YXXrnjSykYbrWYD5t3FyTk67D3 TsnFtcl5HeRsx8vv48iHOtw2V3 dRM1LNvlEUNcvS3lGUtgXpU4 LCRkYxDugM58kCDmMVarEq2pmA cpvWnrMC5vYTVfcusmTANvoB3a LRCzvAJfyOenGR6gAFXvosht c193TiMdLKT2ELIlmKPxT1PehA 5aRsQjIIKnTWUdB4LrwYIcBFez E565QWtzOyE7ZPVdjkJkZ6Fm SRCzlHucQgE8o8H6Do3Kj0Qycw xcMYH2PQmhLJGcUgUdJnWiYbB2 M8XzMvh4IDHcuOftOJ9hM6Sd RGYweayxmlxjrYC5QGUtJTWgwS 60uHLiUKxaTq6ma6C3y237FTXc VEXhmA02Mf7scSavTEFiwIIZ uP7atiufm0zbvdjxDdDlXLAvBN c1JYa7MNLkfLvgUdRyQSM9RyR3 JIL4yXQfgD9hoEgettvilH4n Oyc+G58iuY4jSEK8HSM6ifisKE KftmMeAS49MX07A0UgZmhnyFFc bGU+HKIfmsJkaSbaJJ1nKeRg j0jmg9LoRCktL3YxFVXwVNhwMg t1SHIhWKH8rNB2xB3tJLIuXVax m2T8gLR3B7VkduHbsx1dc1io LYEpONloT81maHQcg7A6JLEnfI R8MUGoiGfkVnRtbV08Xml+PGNv zMmjg9IxAdujh9mir2ghcJe8 RjClKZSjmnCguUtoDXB4e0MaHl 90V18wFDimPUVsBTUqRJMxVSUg tHfqqv8ppN4zHf8+PGNvbCB3 lGQ2tH0iHDZaYvH3YSevJ913Mb BpgVQsRwnnu5ask6tzrRu7FvRh BXUdacErxTyjMZE3a9TsJz04 F42rIZzjXKKmBEMySGMzLQViuK fajy0geK8uDt9+YI1ez0eqbs25 qU93xQQ+XOAwFOZ8kBdwNGfw JYRdvS6xAOdxMjT1UGLiJuOmhG 45yRTbKYdnWy8uhCxzmEzjXK1y TRWizegzp548OnTwm1ogPLOz sFFiZKvpLFI1F59rd0W4XRIfIT BuXGB0hEL7kX4wqKdudlnnsNIj vGebeoMccFgaKXvdZUdwM161 IHRvcDsnPlBhdGllbnQgTmFtZT z6K2SkEok3JJGcqGnxBD2uqWTz YGadUl3zhZibaQodPO1gJIXl tvkfw893IdQsn6cnDMMctYNvPW peNDU5O72ra9I1UWPjGFWyUDM7 fVC0bH6waKiwltkybYRrjHik wbPphSnwBNvjLNjtA464YPGvgL hvWgPbccJxFKTyyBU6LB80TW61 nRSfq2I0zYB0T6OhDAOkdpvo atkppND4AIMzJGZgwW48Jv5zuR hvGh4jHJGsQIQ0ZVCvrUBmU4Kw kR8bAaBaONAnFYSkS6BnxAHh NObwT603RNscNuR0GFDicqLqR6 NwTIUpwYvmGlM8p6K0Ea6ET7S3 AR33WM66xQJkw8M9mTK5R7Ey IINllneoawktiSI6JVEyKVObtZ 96Ms5hpXmrVv6oAYZnJFI1HKKe eGBmE4VlhP7cHfHoQAPsEAJo D1MfdBBmHZzhW735JXdyFkN2TO VvlmNqJ7IhCKWtnAakKqS5d8X1 Bp6SVFq2ZW24SJ39aPDar0A7 aYG9Q9TsPKLijkxznrxggGJ2PA EpMPVqjK21Gp2fqZflWt3gULSe FYE8DMUjjNVyO9DcmU1lZmAu TIFsOJPsF2TddSDqZHteE933QC clGdZ4RKFlxpRrP4BxMKDtwPxz MfX2r8I5Yt2ZWNHfMG96MFI0 qED2VT16XR06U9NnDnehtKKgwX U+PHRhYmxlIHdpZHRoPScxMDAl EfAegXpiTK9cIr4oTBKvJKRj oVuqwGEpRjRzj8atPIAxMLzrOE 6rsFeuA6QnnNV0UDMel6n5Vk24 M02lD6FwbSR+CIJixKV9sID1 zM5xDoWpHnX6TQbaN788QwHdkR LkMjepa0vro4ksyFs5MvS3RBSg ufYysPfqXYA6q5PnGu73T52c IHdpZHRoPSIxNSUiIHZhbGlnbj 9mqI4iTg1+UTWqdCI2bAZ7qZ5n DoVyQyU8TVkbV183SqUayYCl Apbzm7sex7zygYi5LkFyLBOhcj GotJkuHCK9o8PnMd09M7PlgZrm b6FaLfo3sg38lVFms3W1lVD5 Y8EfHZNjqtanhJOyiVioHK9qYO QwpkimADMfrM2zLPGkX9t1OzDk RpD3YWdrT7RkkrQ0ANXgnSOh OFpeKGA4A88bn4B2EEFpBIToRY N0nIO0zO7jdQwvysoxgYIvvItk fuKmuXuqMGpqLNxxZ793LZEh fZfpQFLfyQ4cCULroXIlpTahHN 6bQPHmhhviFxHUDATBE85LNHVQ N9TXRC9mOpfeeJH+PHRkIHN0 aQneYDyaQOVxhS7oMUVcE4a9Eb DrBdH9IKbpF8PqGISbmgxcGx43 nT8wYpMcBuT4ZNilT4HilfL5 YBVroXYrFAtbLJS4E46qc5D9PX YwXEDcRLS4pQZ7rI2wlUulmwvx bGVmdDsgdmVydGljYWwtYWxp H509CBVkzFdhZfB4OsEcOfQ7KH F7Z9NlMbw8LXIwyNvkAX1ypMLr FWlzRc1hnSmafIsqIY9uMDNz rktpVQPhaG1nELUemFXnfSjhPI 8iRRJiusoop959SuEgEKT0CCTe oPBvD3QjsX6yWnNqQRSoMONi S7TpbVBmWUsrX888AZvrCjH8EU TmqpLtY8PmKMQfxQfkJcA4o4T2 Um3sDVKFDQFthsxqfEQ+PHRk UIJ8zAmgKCvxBGTxcN3fQJRqL8 y3LzAcGdU9POdoE8RtBQPvsbns Jm34pS0uSbFqVsO2JFosC5Hm qnC0MTCrrCAzSEwnZMF4X52rs2 T6CTZtRMPbNFD1yZW5uF3ytLgg bjogbGVmdDsgdmVydGljYWwt BTegY147ILRgpXcrMgHfiDBaAX wvdGQ+TGFiFRG8hSvbHAmlEXSp sI1kECNtR8f7QyMfPyC7CSnh P9QcFEYodigcGu89jH1gYzCrQi X2NJonG7PbiyF1MDUnkAVySJab KQP4A27vv8H0XQFqUWNqIWE8 uRD4mQ4fxDpqjlyyfKBvySeymz ChlZnfROuqVRlkC415CJRqhTvq ZrnoBxDRgs6iZP6nUqxciWV+ BY06lk06J2XkMzzyQpx8DCBdPU Z0uRE5fL7hPOAlQSkux1V7pKM9 I0HaasJxgy1ou3uzNGNeMBdd I98mcTGlw4Y8JHAkpRL5FUNjyW wvRwRsqQ90Qld+CYQswSdhd9Ya Sbrlb7mkp3unmOl0HoIsCDSw zrHzxBrwAUZ7a8VyXr80D79sAA uwRYNaSFLgZPXxFLYvfVhtqk8u cX1rUn1+RHZxgUF2vMV5hM6l CkCbEqD3JSgeC271DmIusFIrJt onn4bid9wbkHc0BuQqCZJwjtKq bFgpNLT1k1SqDl62D9IltAlc i5HeYvi0kg48kRJqw3P0vGM3K6 DxHJEelunyfAPvbVyuHU6qHSHl fuqdPSPnmP1mYIXlF9s0LgGt PhC4GDtyK7PhcaO5LTOxaDMqQK UuwEYQfU6nvcuja4zktyckMcPs MZUwSYl4JUo4BSKrsQdkJmPs ICK9CaS4QXF6sREhxC7ngIkfzb qpyX9vWqo+TOx5v1nneTCnQB5u qTE6WD76OC52uNPbe5D0pSO9 Y2DdERWszsoylzkduTT6TKTqVJ QxdS63Sb3pwAbjIg3nDIJiDLF6 MUEfbBTvS4IalV2qLqXyCKNr JOQdT8GwoBXgRGidH994FPsvHz H9YLXftxGjS8KsHZUxeYqpBoI1 u3R3Ry0LPF92DE68WF12rMZu r0Z4mTC5S9TdZWOekzwwjbnbcS A7ZHQuVZDjzR74Iz6dbOicTv7k NYPhAMH8KFExmHVmF1OhdT7x DwCmDJCvCVIbQ7MlmFBtUGrfT4 35NYzmHcD9YYAbgaRkY5FnYLZt tGkyEpP3b4V1Kq1NRd50WX98 AS82lROcn9F1qLC4Y8TaUDFefz tvqgsmbMJ6MOGjQAFgnP65Mt0c fCzfNg9zWZSaWJR9YUUdpYTp M5BnyP1xCqOaSKSgJBYeH0ZuhP KnNGqjG167XMmeJeP9HLBunqUd P7WbCJXyfBmwRmD5x0V5Py3K GYudetf8K9VhSgzhaVK+PC90YW HoAH17nRJwqSTcn5sgfQm4EkZw VRDtPKR9qTogZSxkh0LpOILc Y29s (more content not included)... Normal [facility] Family Medicine Office/Clini c Noteon [...] Tobar to record this visit. JEAN CARLOS customer energy specialist and provider reviewed before signing. Completed by: Rosa Isela Rouse/Angeli Ignacio. Pated by Priyanka Mosley, Quality Train Dispatcher. Follow-up No qualifying data available Problem List/Past [...] acel/tetanus ad (more content not included)... Normal [facility] Comment on above: Result Comment: Elec tronically Signed By: Hayes Moura MD\.br\Date and Time Signed: 12/27/21 15:46 EST\.br\Electronically Co-Signed By: Priyanka Mosley\.br\Date and Time Co-Signed: 12/26/21 22:49 EST RENETTAZACHkostas 01-02-2017 CNOV [facility]AGEXPHUD[facility][id number][facility] 1995 FDate Time Provider Tffswayelz77/22/17 2:30 PM FANNY GROSS (DESMOND) AGEXPHDANAY During [...] Yes. To reduce yoursymptoms, you can:?Take an cqxg-oar-hjwanev pain reliever to reduce the pain?Rinse your [...] pulsating irrigation device (sample brand names: Grossan HydroPulse,[employer] Sinusense Water Pulsator) ? These are battery-powered [...] 4 - HivesDate Reviewed: 01/02/2017Reviewed by: Fanny ([facility]) Mosneakathy - Fully AssessedReason for Visit: [...] reduce your symptoms, you can: ?Take an jowd-sjj-ckhwhmh pain reliever to reduce the pain ?Rinse [...] with your doctor This topic retrieved from [facility] Patient education: Rinsing out your nose with [...] ?A pulsating irrigation device (sample brand names: [employer]an HydroPulse, [employer] Sinusense Water Pulsator) ? These are battery-powered [...] to improve.Follow-up and Disposition History RecordedEncounter Number: [id number] Status:Closed by FANNY GROSS CNP on 01/02/17 [facility] PROGRESSon 01-02-2017 PROGRESS HNO ID: [id number] thor: Fanny (Desmond) Arleyervice: (none)Author Type: Nurse [...] 11-12-2016 OV Office Visit (AGEXPHUD) CUCO DEVLIN ([id number]) 1995 [facility] Time Provider Qyhpikcmhm77/2/17 8:15 AM FANNY GROSS (DESMOND) AGEXPHUD During [...] too much?Breathing in harsh chemicals, such as physician support coordinator or gasoline?Drinking too much alcohol or smoking [...] Other causes of laryngitis are treated on myuxv-lm-timl basis.-Voice rest is used for acute laryngitis, [...] Laryngitis, acute [J04.0]Order(s):ALERE STREP A TEST (AG) [0927063] Order #: [id number] THROAT CULTURE [SQTHRCUL] Order #: [id number] FUTURE lidocaine viscous (LIDOCAINE VISCOUS) 2 % [...] much ?Breathing in harsh chemicals, such as physician support coordinator or gasoline ?Drinking too much alcohol or [...] causes of laryngitis are treated on a rujy-yo-vakk basis. -Voice rest is used for acute [...] to do for your baby. Retrieved from [email or web address] ordered this encounter Disp Refills Start End LIDOCAINE 2 % MUCOSAL SOLUTION 100 * 0 11/12/2016 Route: ORAL Sig: Take 5 mL by mouth four times daily as needed for Pain (swish and spit, do NOT swallow).Disposition: Return if symptoms worsen or fail to improve.Follow-up and Disposition History RecordedEncounter Number: [id number] Status:Closed by FANNY GROSS CNP on 11/12/16 [facility] PROGRESSon 11-12-2016 PROGRESS HNO ID: [id number] thor: Fanny (Desmond) Arleyervice: (none)Author Type: Nurse [...] ICD10: J04.0- Written educational material DESMOND Karimi [facility] Throat Cultureon 11-12-2016 Throat Culture Test performed at [facility] No group A beta streptococci cultured. Normal [facility] Comment on above: Performed By: #### C THRT ####[facility] [place], [place] [address] Vital Signs Date Time Vital Sign Value Performing Clinician Facility 03-14-2023 09:31-0500 Body mass index (BMI) [Ratio] 31.17 kg/m2 Cheyenne Bj DO Work Phone: [facility] 03-14-2023 09:31-0500 Body weight 92.99 kg Cheyenne Bj DO Work Phone: [facility] 03-14-2023 09:31-0500 Diastolic blood pressure 66 mm[Hg] Cheyenne Bj DO Work Phone: [facility] 03-14-2023 09:31-0500 Systolic blood pressure 130 mm[Hg] Cheyenne Bj DO Work Phone: [facility] 12-26-2021 13:47-0500 Blood Pressure Location Hayes Gudimella [facility] 12-26-2021 13:47-0500 Body temperature 96.8 [degF] Hayes Gudimella [facility] 12-26-2021 13:47-0500 Diastolic blood pressure 72 mm[Hg] Hayes Gudimella [facility] 12-26-2021 13:47-0500 Heart rate 67 /min Hayes Gudimella [facility] 12-26-2021 13:47-0500 Respiratory rate 16 /min Hayes Gudimella [facility] 12-26-2021 13:47-0500 SaO2% (BldA) [Mass fraction] 98 % Hayes Gudimella [facility] 12-26-2021 13:47-0500 Systolic blood pressure 112 mm[Hg] Hayes Moura [facility] Encounters Encounter Date Encounter Type Care Provider [...] [place] Start: 05-14-2022 End: 05-14-2022 ambulatory PRETTY VIVAS . Facility: Start: 12-26-2021 End: 12-27-2021 ambulatory MD Hayes Moura [place] Start: 12-26-2021 End: 12-26-2021 Lab Drop off Hayes Moura [facility] Start: 12-26-2021 End: 12-26-2021 Patient encounter procedure Hayes Moura [facility] Start: 11-12-2016 End: 11-13-2016 Ambulatory FANNY (CROP INSURANCE CLAIMS ADJUSTER) [facility] Start: 11-12-2016 End: 11-12-2016 Ambulatory FANNY (CROP INSURANCE CLAIMS ADJUSTER) [facility] Procedures Date Procedure Procedure Detail Performing Clinician Start: 03-14-2023 Urnls dip stick/tabl et rgnt non-auto w/o micrscp Cheyenne Bj DO Work Phone: Start: 02-11-1998 Adenoid excision Hayes Gudimella Plan of Treatment Date Care Activity Detail Author Start: 04-04-2023 End: 04-04-2023 Patient encounter procedure 04/04/2023 9:10 AM EST Routine [facility] [address] [place] [address] Pretty Vivas PA [address] [place] [address] [facility] Start: 10-12-2022 Influenza vaccination Influenza Vacc ine (#1) [facility] Healthcare Immunizations Immunization Date Immunization Notes Care Provider Fa cility 04-16-2020 SARS-CoV-2 (COVID-19 ) mRNA-1273 vaccine Hayes Gudimella [facility] 01-12-2020 influenza virus vaccine, unspecified formulation Cheyenne Bj DO Work Phone: [facility] 11-16-2019 influenza, injectable, quadrivalent, contains preservative Hayes Gudimella [facility] 08-28-2019 tetanus toxoid, reduced diphtheria toxoid, and acellular pertussis vaccine, adsorbed Hayes Gudimella [facility] NEGATED: Highlighted row has not occurred!12-26-2021 influenza virus vaccine, unspecified formulation Hayes Gudimella [facility] Payers Date Payer Category Payer Unknown BCBS BCBS xxxxxx [id number] 2021-Present [phone] [id number] [place] [address] [id number] 1993 Unknown [id number] 2.16.840.1.664903.3.579.2.593 1993 Unknown [id number] 2.16.840.1.547210.3.579.2.727 1993 Unknown [id number] 2.16.840.1.039007.3.579.2.727 1993 Unknown [id number] 2.16.840.1.368317.3.579.2.727 1993 Unknown [id number] 2.16.840.1.055076.3.579.2.727 1993 Unknown [id number] 2.16.840.1.298938.3.579.2.1259 1993 Unknown [id number] 2.16.840.1.667506.3.579.2.1259 1993 Unknown [id number] 2.16.840.1.323518.3.579.2.1259 1993 Unknown [id number] 2.16.840.1.191653.3.579.2.1259 1993 Unknown [id number] 2.16.840.1.387629.3.579.2.1259 1993 Unknown [id number] 2.16.840.1.923883.3.579.2.1259 1959 Unknown [id number] Unknown [id number] Social History Date Type Detail Facility Start: 12-26-2021 Tobacco smoking status Ex-smoker (finding) [facility] Comment on above: denies denies Tobacco smoking status Never [facility] Comment on above: denies denies Sex Assigned At Female [facility] Tobacco smoking status NHIS Tobacco smoking consumption unknown [facility] Start: 10-05-2022 [facility] Start: 1995 Sex Assigned At Not on file [facility] Functional Status Date Assessment Result Facility 12-26-2021 Functional Status N/A [facility] [place] History of Present illness Narrative 03-14-2023 Priscilla [...] nursing note reviewed. Exam conducted with a propeller mechanic present. Vitals: Estimated body mass index is [...] Cheyenne Lorenzo DO documented in this encounter [facility] Clinical Note 01-19-2022 Note Date & [...] Locations R1: This test was performed at: [facility], [address] [place] [address], [facility] , , [facility] Comment on above: Performed By: #### [id number] #### [facility] [address] [place] [address] Clinical Note 12-29-2021 Note Date & Type [...] Locations R1: This test was performed at: [facility], [address] [place] [address], [id number] , [place], [facility] Comment on above: Performed By: #### [id number] #### [facility] [address] [place] [id number] Evaluation + Plan note 12-26-2021 Note Date & Type Note Facility 12-26-2021 Evaluation + Plan note Diagnostic Tests PendingFluid Culture 12/26/21 [facility] Evaluation + Plan note Note Date & Type Note Facility Evaluation + Plan note No data available for this section [facility] Evaluation note Note Date & Type Note Facility Evaluation note Diagnosis Second trimester state, incidental documented in this encounter [facility] Hospital Discharge instructions Note Date & Type Note Facility Hospital Discharge instructions No data available for this section [facility] Progress note Note Date & Type Note Facility Progress note No data available for this section [facility] Summary Purpose Family History No Family History [...] content) DATE CREATED AUTHOR 08/06/2017 [facility] DATE CREATED AUTHOR AUTHOR'S ORGANIZ ATION 08/17/2017 [facility] DATE CREATED AUTHOR AUTHOR'S ORGANIZ ATION 05/21/2022 [facility] DATE CREATED AUTHOR AUTHOR'S ORGANIZ ATION 11/16/2022 [facility] DATE CREATED AUTHOR AUTHOR'S ORGANIZ ATION 05/02/2023 [facility] EPIC Patient Care team informatio n (unrecognized section and content) [employer] Relationship Specialty Start Date End Date Alexandra Lopez MD [address] [place] [id number] PCP - General Family Medicine 11/16/22 Reason [...] BE BASED ON THE PRIMARY CLINICAL RECORDS. [employer] provides no warranty or guarantee of the accuracy or completeness of information in this document.
== END 2023-05-10 13:38 | disposition home or self-care (01) ==
LOC: FBCO 07:18 → FBC 13:06
PROVIDERS: Visit Provider Obstetrics & Gynecology
DX: O36.63X0 Maternal care for excessive fetal growth, third trimester, not applicable or unspecified (principal)
CPT/HCPCS: 59025

== ENCOUNTER 2023-05-15 07:35 | Outpatient (OUT) | payer BC, SELFPAY ==
--- OUTSIDE RECORDS SUMMARY | 2023-05-15 07:52 | XMS_ITS | CCD ---
Author Organization [facility] Care Team Providers Care Last Turner Name Role Phone MOSELIAS GREGORIOALIN (PIANO SOUNDING BOARD MATCHER) Unavailable Unavailab le MOSNEAG, FANNY (PIANO SOUNDING BOARD MATCHER) Unavailable Unavailab le IMCA Unavailable Unavailable RENATO FANNY E Unavailable Unavailable Sherri CHEUNG Primary Care Physician PRETTY MCGRAW Admitting Unavailable PRETTY MCGRAW [facility]ending [facility] Primary Care Unavailable PRETTY MCGRAW Consulting Unavailable MD Zeny Hayes Attending Unavailable MD Zeny Hayes Admitting Unavailable Gorge Castro Attending Unavailable MD Zeny Hayes Attending Unavailable MD Zeny Hayes Attending Unavailable MD Zeny Hayes Admitting Unavailable Jessica STEINBERG, Alexandra Primary Care Provider [phone] PRETTY VIVAS Attending Unavailable CHEYENNE LORENZO Attending Unavailable CHEYENNE LORENZO Attending Unavailable PRETTY VIVAS Attending Unavailable CHEYENNE LORENZO Attending Unavailable CHEYENNE LORENZO Attending Unavailable Allergies Allergy Classification Reported Allergen(s) Allergy Type Date of Onset Reaction(s) Facility (2 sources) Sulfonamides (Antibiotic); Translations: [SULFA (SULFONAMIDE ANTIBIOTICS)] Propensity to adverse reactions to drug (disorder) 7 AOF [facility] Repository (7 sources) Sulfonamides (Antibiotic); Translations: [sulfa drugs] Drug allergy [facility] (1 source) Sulfonamides (Antibiotic) Drug allergy (disorder) [facility] Repository (1 source) Sulfonamides (Antibiotic) Drug Allergy 3 Unknown [facility] Medications Current Medications Medication Drug Class(es) Dates Sig (Normalized) Sig (Original) clotrimazole 10 mg/ml topical cream (6 sources) Azole Antifungal Start: 12-26-2021 clotrimazole Top 1% Crm 1 lenin, Topical, BID, 24 gram, Refill(s) 0, [id number], 175, cm, 12/26/21 13:50:00 EST, Height/Length Dosing, [...] UA Negative Negative - 4(70) +++ mg/dL [facility] Work Phone: Blood, UA Negative Negative - 50 Jarrett/mcL [facility] Work Phone: Clarity, UA Clear [facility] Work Phone: Color, UA Yellow [facility] Work Phone: Glucose, UA Positive Negative - 1999(110) ++++ mg/dL [facility] Work Phone: Comment on above: 100 Interpretation and review of laboratory results Abnormal [facility] Work Phone: Ketones, UA Negative Negative - 160(16) ++++ mg/dL [facility] Work Phone: Leukocytes, UA Moderate Negative - 500+++ Brooke/mcL [facility] Work Phone: Nitrite, UA Negative Negative - Positive [facility] Work Phone: pH, UA 7.0 5 - 9 [facility] Work Phone: Protein, UA Negative Negative - 1999(20) ++++ mg/dL [facility] Work Phone: Spec Grav, UA 1.010 1 - 1.03 [facility] Work Phone: Urobilinogen, UA 0.2 0.2 - 12 mg/dL [facility] Work Phone: [facility] Work Phone: ED Note-Physicianon 11-12-19 23 [...] and Complexity of Problems Differential Diagnosis: [] [facility] Data External documents reviewed: Not [...] day(s), # 14 cap(s), Refills(s) 0, Pharmacy: [id number], 173, cm, 11/04/22 21:16:00 EDT, Height/Length Dosing, 90.6, kg, 11/04/22 21:16:00 EDT, Weight Dosing Disposition Plan Patient Discharge Condition Stable Discharge Disposition To home Discharge Prescription List Prescriptions cephalexin 500 mg Cap, 500 mg= 1 cap(s), Oral, q12hr Follow-up With When Contact Information Sherri CHEUNG In 3 days 11/07/2022 EDT [facility] [place] [phone] Business (1) Additional Instructions: Call the office [...] seen and evaluated by the physician assistant editor. Attending physician was present in the emergency department and supervised care. This visit was performed by both the physician and an APC. I performed all aspects of the MDM as documented. This report was transcribed using voice recognition software. Every effort was made to ensure accuracy, however, inadvertently computerized doctorate of chiropractic mistakes may be present. Appropriate healthcare PPE was used in evaluating this patient. The patient was placed in a mask. The healthcare provider was wearing mask, gloves, and util (more content not included)... [facility] Comment on above: Result Comment: Elec tronically Signed By: Bud Parker PA-C\.br\Date and Time Signed: 11/04/22 22:25 EDT\.br\Electronically Co-Signed By: Gorge Castro MD\.br\Date and Time Co-Signed: 11/11/22 20:46 EDT Discharge Instructionson Discharge Instructions [id number]:12 7 [facility] ED Clinical Summaryon 2022 ED Clinical Summary [place] [id number] ED Clinical Summary Person Information Name: CUCO CARDENAS Richelle/[facility] Age: 27 Years : 1995 Sex: Female Language: Northern Irish PCP: Sherri CHEUNG MD Marital Status: Single [...] 11/04/2022 22:37:58 11/04/2022 22:37:58 11/04/2022 22:37:58 ADDRESS: [address] [place] [phone] PHYS DOC NOTES: MEDICAL INFORMATION: Prescriptions Given: New Medications [id number], [address] [place], [place] [id number], [phone] cephalexin (cephalexin 500 mg Cap) 1 Capsules [...] Follow up: With: Address: When: Sherri CHEUNG [address] [place] [address] [address] [phone] Business (1) In 3 days 11/07/2022 Comments: [...] or worsening symptoms. DIAGNOSIS: Fingertip avulsion [facility] ED Patient Education Noteon 11-05-2022 ED [...] even if your condition improves. ? Take aite-rli-ipobwyn and prescription medicines only as told by [...] and water are not available, use hand rn assessment. ? Change your dressing as told by [...] foot a (more content not included)... [facility] ED Patient Summaryon 023 ED Patient Summary (Inserted Image. Marylu ble to display) [place] [id number] Patient Discharge Instructions Person Information Name: CUCO CARDENAS Age: 27 Years Arrival Date: 11/04/2022 21:10:12 Discharge Diagnosis: Fingertip avulsion Primary Care Physician: Sherri CHEUNG MD Provider Information Primary Provider: Advanced Cnc Manager:Elena PANDEY, Bud Ferrari The exam and treatment you received in the Emergency Department were for an urgent problem and are not intended as complete care. It is important that you follow up with a doctor, nurse practitioner, or physician?s assistant editor for ongoing care. If your symptoms become worse or you do not improve as expected and you are unable to reach your usual health care provider, you should return to the Emergency Department. We are available 24 hours a day. CUCO CARDENAS has been given the following list of patient education materials, prescriptions and follow-up instructions: Follow-up Instructions: With: Address: When: Sherri CHEUNG [address] [place] [address] [address], [place] [address] Business (1) In 3 days 11/07/2022 Comments: [...] opioids can be used to help relieve tofmfnqx-sl-vvoqyy pain and are often prescribed following a [...] ? Safely (more content not included)... [facility] Consent for Treatmenton 10-13 Consent for Treatment [id number]:127 [facility] PAP ACOG PANEL 2: 21 to 29on 05-21-2022 . . [facility] Comment on above: Performed By: #### 4 [id number] #### [facility] [address] [place] [address] Dr. Jewels Looney Age Gdln ACOG Testing - [facility] Comment on above: Performed By: #### 4 [id number] #### [facility] [address] [place] [address] Dr. Jewels Looney DIAGNOSIS: Comment [facility] Comment on above: Result Comment: NEGA TIVE FOR INTRAEPITHELIAL LESION OR MALIGNANCY. Performed By: #### 4 [id number] #### [facility] [address] [place] [address] Dr. Jewels Looney Methodology: Comment [facility] Comment on above: Result Comment: This liquid based ThinPrep(R) pap test was screened with the use of an image guided system. Performed By: #### 4 [id number] #### [facility] [address] [place] [address] Dr. Jewels Looney Note: Comment [facility] Comment on above: Result Comment: The Pap smear is a screening test designed to aid in the detection of premalignant and malignant conditions of the uterine cervix. It is not a diagnostic procedure and should not be used as the sole means of detecting cervical cancer. Both false-positive and false-negative reports do occur. . Performed By: #### 4 [id number] #### [facility] [address] [place] [address] Dr. Jewels Looney Performed by: Comment Normal [facility] Comment on above: Result Comment: Rosita Haines, Employment Attorney (ASCP) Performed By: #### 4 [id number] #### [facility] [address] [place] [address] Dr. Jewels Looney Reflex Criteria: Comment Normal [facility] Comment on above: Result Comment: The HPV DNA reflex criteria were not met with this specimen result therefore, no HPV testing was performed. . Performed By: #### 4 [id number] #### [facility] [address] [place] [address] Dr. Jewels Looney Specimen adequacy: Comment Normal [facility] Comment on above: Result Comment: Sati sfactory for evaluation. Endocervical and/or squamous metaplastic cells (endocervical component) are present. Performed By: #### 4 [id number] #### [facility] [address] [place] [address] Dr. Jewels Looney Reminderson 01-19-2022 Reminders - From: Hayes Moura MD To: [facility] - Clinical; Sent: 01/16/2022 15:19:01 EST [...] and declines any questions or concerns. [facility] Coding Summary.on 12-31-2021 Coding Summary. CD:[id number] Gh0bWw +PGhlYWQ+CW3ILVIuL04cyYMeb M5IH2gYZF9EIEDOCWUACC0UKM7 dbVH6BYmkG6HaifLb MobqvRFcXR04YAu6BHB0iCisRA bpyN1glBYeJ6u2AlJsDG99eU98 QMirKRGsPrW2SaMkrerbqQAi H1gmJjNytGGsVxr+PHRhYmxlIH oqFUFwUXtvCWFqXbNfyGklQZ8f Cs5sMJRuBKEyyEcdvIZyPaPg w2pcQTReKNauCV9jgDveC6KidK Q7XFIuu3e6Mz99sMP+PHRkIHN0 aAahPBejf759JaGvw1lpNOL5 xDYxMGkpELI8Z87oe9B6SQGaDV EzJUK9wUZ2lN7mcSpmjgtiZ1Xm yTBsOlA1UKO5fJRtkK2rvMin ffvmkU7oZjl+A75PXB8NOFUVKI 2SQgj8I3JzDazhrMR+CH06RTTd UU82uREtfAUgz1smvAv3DmDn QPOuWMX1iOlvNKvbh5WpHMSvK7 4saOBch7V2ZCKixAexzPNnLdMu oXJ9kI0yAVnuuovfg4jvhfyx Fylsb1kjyc77xF63U84aASapZO YeWVC9UWXdPELtxDcohf5qxF3z Ii8+SHpew2qqi2ugcLn0TmVd DFVxybLhxZtjFFB5r0IbRj43R7 EgfUspi1JmOdx4se05wCXkb0A3 lUG9BJocILHdlW0jPLivCcK9 JUQzVdCspL62tXTfIPqoYn0qwE pmeIllLX8iFNFoklqgCQYdfK4m UDXbgWHttHqaIU0jMDPazsxw o212KkLpPMX1WLTxvVKvN2HuzO 4zUpRsVMWnOVOzR7CgeHFfGAum U473UXooXoN5UFAtqpDeH6Tb QQKvzObsPaS7e8T7Wu2Vd6Yhet xrMOS8SHyoKRCmAqUgFfYaMiQ3 W4PvQpf1XEIpkEosIZ9lL9Sj WDBwtviokxjeyUK8LWMtJFTltD 93bWXaOEvfGa7yl1W5k415MQFu ITRrnU45Rw6maMzbAGNfdNWL bO4qrpfgy7qheseeCaDnECCjUY c0IXr5BDAneNxbQdUwBTZ6XjP4 FGK3iXAmuA5jdEjwcataqK5t Oyc+J00icT1sECB0UEZ3kfokKQ WntcYbYC11JP13X2SkOuqfuDSq bGU+VNEbkoCmfSznMS5oYeTe x5bvg7WmHFhnC2KiJHMyJXfvQa s5SFPkHUS6bGQ7rM8dOJXjOUvo w7D0gUF3U5OwteAlyk8pf0gn YMGiTXwkV73gpQVrr5T1MNFjrM W0BLIlhCwwIzSjoS11Cnb+PGNv qNngj8SeTxtke4uzu5oenHf2 RwXpCWFjfwImdWwbDZV9d8ElIp 14R96gXTorMVCfJNIbSRRxPXLh sOzylw6smM1wEq4+PGNvbCB3 dPU1sZ0aTIOdRxI4HWktA721Om YujQWdGeoce7vcj6xyuZm9QlSp WOKqlyKkiNffDAV3q2SuEr11 N91kIJhiHSVzDQUoHRLnAIDjmG tmnm7bpB5rBk9+PR4gd1rpvr94 cO28aKH+JIRjOBJ5hQloGRpk BMPhiV2nJWncBdW9ZVGpQxMblE 29vOPmEPwzDv6grPsqnHfdPA2c QKRkujagi699KbNjn8vfYPTe xKGzOCewPNU2W17km6X5GSGrZB OeHPJ7dJP6xI3glRzandgkwHIr yRhecaRqsMgsHVdzUTtoD665 IHRvcDsnPlBhdGllbnQgTmFtZT p7M6XkVfy3EYLcuGyuYB4jtBHp VVgwPi8ygOicxVhkZT9vPAVj leeqn784KaKqf7duUSYxlPHaOW gnYQL3G19he6X1BFBzGXCrGIC3 xNC0dK0syGryxoxyrQHbxYeu uwBefEcrDQfmFQgmQ812JUZinT wfKsJicaRjJPUibOP2NM21NK12 kREpc1L0kZB3N8WvNNKqvgix iilquTG6HSYnMTQqoH12Su7adX elJv9mXHGvRSN4RNAifOJoN9Il dI7cPhLcODHyLQZuN1WtoKLf PZjyE892VRprSxN4LGAeelJcX4 ZeKCXslLupCoF4c6S7Ik7KL2N7 MC45BJ62pJGlb1D8kSC7W2We UDYryhpmfvfzfKZ9XMRgAOQemJ 58Jb9rbWemPr4dPXZdVJG4AEPb wHTrJ2WsbN4qGxFqAURzUGEt R8OcmMQyDHxwL245UAcjMrP6FS YvlmEdT9QiCDAzpWcnNhH7q6U8 Tj6EAZd1IL90LM78xNZtd9X7 sDR6V9RjREEgiomvayzclTU8OE ApOEFgmV72Zq9aqUcrWm8wPSXl DHA5TWZcbTLgM8RboO3hYiAb YKRfEGJiY9NvsXUlGEnfS257MT ngLrE2ZZZcsbHtG8YvIPPipVma XhE9m3D4Ip7NUZNnKI49UXD3 dOR8IG70CH33J9LyFtbmdDPxoR U+PHRhYmxlIHdpZHRoPScxMDAl NvFrtGweIZ5uNv7yAJZaQYPv uFozeXYhSaNsz6ymFALkYTuoRG 8wuNfkT1DtnXC6TYAjq9f8Bt06 K23nI4RcyGN+NHHvqOW9oCL4 nH2lSgBoGiN3KBjkL076LlWmuA TtKgflv3kal6pfoGr5KvU0ANKz snVygPqeIXU2k5GzOf28E00u IHdpZHRoPSIxNSUiIHZhbGlnbj 7wjU6tIf7+KFVqaAP9wSC8jQ2o SjNhPqX9YEmiG938HlHkiXKh Dnnoa2rup9kedDk3PeClEDQpba AqnNdnHPV1i3JzXu93L8YdzApo y0GmUpu5rp96oVOhf5U7dJW0 G0ExRJHrrlantOMcaRfwEZ2fTR ShmvbySPDmmJ7zBZKeD3q5XqIs VpJ8GFjkA6XoxnL4IPAcpSPh CVwnJJX8E33lx4P3ZMXlPDJzPM B0lRX0bH0ftOwyamdgxUWraKse sdHrwTszFOzzQQftM011XROl iLymFQLyfP8vYJWaoORddXwuIA 3zZGVmeavvIpKPMGWAG76IBDXZ E5FAAJ3zYiihlXN+PHRkIHN0 vKzyXRxqSAFvjE7mFWPcD2l3Ko ZcUpE4OAeeO5VxMNRiiodvUf05 kR8zCyYgPsX5PHalL5JqdqM5 BGZcoKMfLVteHQU5I37lg0J6BU FrACYrIUT3sJI5iB5kgCfbnxdw bGVmdDsgdmVydGljYWwtYWxp U812SPDcjBgjBcY4AyMxZnY8WE X8E8EwVyk2BCYgeCjuGE9nwWYa CXkqNi0cpJsjyZwhBC7aNEVz hakrRZIpkN9wAWUweCVsrOkqTZ 7pRAMlvrory263IbHgPYC3ARCu gBSvG7UrgS5vLxQgIRHqRTBl W0GzqNXjDLqqW784LDxfZdT9OD WikwTaL6NlYFUnnIevGkI2a4L3 Un4nGJWUBECikywprFK+PHRk BSZ2hJduJRhjXWSgpU7cLPBtS4 k2OwTfUdS5OFdjP5JpOZPbtkdv Ye13yH8fJiDpAnH2NYcrO3Pr vwO5BLSiqQNzYQtyTDF4G45or7 L7PXTyISCrOCD8aMW6nN9yrAtc bjogbGVmdDsgdmVydGljYWwt YKhsU945LJFljCfmAbNogZUkLV wvdGQ+CYSfUUK7oHndEBzqHTWg zK9vPAXbN6q2ChRzXeR1XYvf N2ZsXTIhcvszBx44hV3fNjZqLv Q2OXztZ0AfokD3VUOxkCVvEEtu CJB9H99qb7V6UCNrITCtDOE9 tPW6gT8blGbhqmrgqNZzzGuhrf GszZqjRDfqIJmsN685RNAnlWkx LmlpNdFQyd9lGH6aVhmxpQF+ GT99tg31V4WwThgtAah7JQRgCM L4kWK7zZ0lOFZwDIiiu6R2qYW5 I4PqvvZtsj7zq0mtUSWmQYzr L26ubAPqe5Q5HWLefKG6DEPsxL rjYoVwmZ62Ajg+OPVqdNxue3Nk Exgap5maa6ynyMg3ShAvJHAh xtCfvMjtEEW5z5GvCn20K82rXJ gtAJMuEWQqUWMcBXCwzEpper1b jV8fDu5+BYTcnTG8xHI5fD8y ViKbZmM2QMjoY744OcOzdBPfSk usa7aox8yboJs6XzCzLLLvsyPu gFmnNMB4n4YkQn80J0NdmGkd t3YiKfg4pn04tUDxh3Y8qJT1R0 XvQZUnbffdiFWnrUxdBK5jEKBk prhbQELnqR0rKJFnD2n8RlPm OeJ0QMynR0ZlwwM7CUErnLBgXJ ZqtUNIiF0qtoyua9mleutcVhJp XTKjIHh6HKx1NXVbtXskMhYw KAN6EzB5BHZ4eQZoaW2zrYhptk lpdW5vMtd+YKu6d5dwlCYkLU3d hRG1DL98SH84xWHzv1W8yOC1 W1MoCTWngbobmsupfUA1JOAlQZ LijT55Qz1roMneSw2yUIIbBDA8 ETWqpYAuJ6FebF0lUlSkJHTb JJKlX4YfvLGoVDqrQ002ZOveAm U0SGZofpAmU9NdICCgxZadCnP1 h3F5Uh5SNC65RL83BX68nWSh t6J2jIS0V8KyFVQdbyvedhfrlG N1JAZwRPPigF38Jb2kzNbcYh5j KOVdBOV4SMRfgFQeA3LbsG4h CuHhZETbONEnJ4XgmWJmRDuyM5 51YRpbIzG2BHKroaMkD8TvCMEo lCzzOiV9i5N2Gv7KOg02LZ44 VH70rNBlx1W8pIX1X7QgDRXvdx nqtqjxdAC6KBRgRWYhzW12Qt4i zEjpDk3aOMChYEZ7ZKMuxXLf S1VbzV4tVhHgJMKrGSCqR0WecU FkBAoaX966SRedXoX7KBUtneJx B8NmSXAcpYhtTmH8i8B3Qn2I CBkjivq7Y3AiLqxnmES+PC90YW YcPY84bBIqfXRcr3tjzRk7XfXl NCJaUJE8lGqaPMojk7PjCUZr Y29s (more content not included)... [facility] Family Medicine Office/Clini c Noteon 12-27-2021 [...] Tobar to record this visit. JEAN CARLOS automotive product specialist and provider reviewed before signing. Completed by: Rosa Isela Rouse/Angeli Ignacio. Pated by Priyanka Mosley, Quality Camp Maintenance Supervisor. Follow-up No qualifying data available Problem List/Past [...] acel/tetanus ad (more content not included)... [facility] Comment on above: Result Comment: Elec tronically Signed By: Hayes Moura MD\.br\Date and Time Signed: 12/27/21 15:46 EST\.br\Electronically Co-Signed By: Priyanka Mosley\.br\Date and Time Co-Signed: 12/26/21 22:49 EST RENETTAZACHkostas 01-02-2017 CNOV Office [facility] (AGEXPHUD) [facility][id number][facility] 1995 FDate Time Provider Asgojunqjh74/22/17 2:30 PM FANNY GROSS (DESMOND) AGEXPHDANAY During [...] Yes. To reduce yoursymptoms, you can:?Take an xggy-xev-wdfnvfy pain reliever to reduce the pain?Rinse your [...] pulsating irrigation device (sample brand names: Grossan HydroPulse,WaterLomography Sinusense Water Pulsator) ? These are battery-powered [...] 4 - HivesDate Reviewed: 01/02/2017Reviewed by: Fanny ([facility]) Mosneakathy - Fully AssessedReason for Visit: [...] reduce your symptoms, you can: ?Take an mced-ioe-swflmxd pain reliever to reduce the pain ?Rinse [...] with your doctor This topic retrieved from [facility] Patient education: Rinsing out your nose [...] ?A pulsating irrigation device (sample brand names: DediServean HydroPulse, [employer] Sinusense Water Pulsator) ? These are [...] to improve.Follow-up and Disposition History RecordedEncounter Number: [id number] Status:Closed by FANNY GROSS CNP on 01/02/17 [facility] PROGRESSon 01-02-2017 PROGRESS HNO ID: [id number] thor: Fanny (Desmond) Arleyervice: (none)Author Type: Nurse [...] Gross CNP [facility] CNOVon 11-12-2016 OV Office Visit (AGEXPHUD) CUCO DEVLIN ([id number]) 1995 [facility] Time Provider Povshgnxiu94/2/17 8:15 AM FANNY GROSS (DESMOND) AGEXPHUD During [...] too much?Breathing in harsh chemicals, such as instructional systems specialist or gasoline?Drinking too much alcohol or smoking [...] Other causes of laryngitis are treated on elmum-qe-uqvz basis.-Voice rest is used for acute laryngitis, [...] Laryngitis, acute [J04.0]Order(s):ALERE STREP A TEST (AG) [3380558] Order #: [id number] THROAT CULTURE [SQTHRCUL] Order #: [id number] FUTURE lidocaine viscous (LIDOCAINE VISCOUS) 2 % [...] much ?Breathing in harsh chemicals, such as instructional systems specialist or gasoline ?Drinking too much alcohol or [...] causes of laryngitis are treated on a jzju-zf-hcng basis. -Voice rest is used for acute [...] to do for your baby. Retrieved from [facility] ordered this encounter Disp Refills Start End LIDOCAINE 2 % MUCOSAL SOLUTION 100 * 0 11/12/2016 Route: ORAL Sig: Take 5 mL by mouth four times daily as needed for Pain (swish and spit, do NOT swallow).Disposition: Return if symptoms worsen or fail to improve.Follow-up and Disposition History RecordedEncounter Number: [id number] Status:Closed by FANNY GROSS CNP on 11/12/16 [facility] PROGRESSon 11-12-2016 PROGRESS HNO ID: [id number] thor: Fanny (Desmond) Arleyervice: (none)Author Type: Nurse [...] ICD10: J04.0- Written educational material DESMOND Karimi [facility] Throat Cultureon 11-12-2016 Throat Culture Test performed at [facility] No group A beta streptococci cultured. Normal [facility] Comment on above: Performed By: #### C THRT ####[facility] [place], [place] [address] Vital Signs Date Time Vital Sign Value Performing Clinician Facility 03-14-2023 09:31-0500 Body mass index (BMI) [Ratio] 31.17 kg/m2 Cheyenne Bj DO Work Phone: [facility] 03-14-2023 09:31-0500 Body weight 92.99 kg Cheyenne Bj DO Work Phone: [facility] 03-14-2023 09:31-0500 Diastolic blood pressure 66 mm[Hg] Cheyenne Bj DO Work Phone: [facility] 03-14-2023 09:31-0500 Systolic blood pressure 130 mm[Hg] Cheyenne Bj DO Work Phone: [facility] 12-26-2021 13:47-0500 Blood Pressure Location Hayes Gudimella [facility] 12-26-2021 13:47-0500 Body temperature 96.8 [degF] Hayes Gudimella [facility] 12-26-2021 13:47-0500 Diastolic blood pressure 72 mm[Hg] Hayes Gudimella [facility] 12-26-2021 13:47-0500 Heart rate 67 /min Hayes Gudimella [facility] 12-26-2021 13:47-0500 Respiratory rate 16 /min Hayes Gudimella [facility] 12-26-2021 13:47-0500 SaO2% (BldA) [Mass fraction] 98 % Hayes Gudimella [facility] 12-26-2021 13:47-0500 Systolic blood pressure 112 mm[Hg] Hayes Moura [facility] Encounters Encounter Date Encounter Type Care [...] 11-05-2022 Emergency department patient visit Gorge Castro Facility:[facility] Start: 05-14-2022 End: 05-14-2022 ambulatory PRETTY VIVAS . Facility: Start: 12-26-2021 End: 12-27-2021 ambulatory MD Hayes Moura Facility:[facility] Start: 12-26-2021 End: 12-26-2021 Lab Drop off Hayes Moura [facility] Start: 12-26-2021 End: 12-26-2021 Patient encounter procedure Hayes Moura [facility] Start: 11-12-2016 End: 11-13-2016 Ambulatory FANNY (PIANO SOUNDING BOARD MATCHER) [facility] Start: 11-12-2016 End: 11-12-2016 Ambulatory FANNY (PIANO SOUNDING BOARD MATCHER) [facility] Procedures Date Procedure Procedure Detail Performing Clinician Start: 03-14-2023 Urnls dip stick/tabl et rgnt non-auto w/o micrscp Cheyenne Bj DO Work Phone: Start: 02-11-1998 Adenoid excision Hayes Gudimella Plan of Treatment Date Care Activity Detail Author Start: 04-04-2023 End: 04-04-2023 Patient encounter procedure 04/04/2023 9:10 AM EST Routine [facility] [address] [place] [address] Pretty Vivas PA [address] [place] [address] [facility] Start: 10-12-2022 Influenza vaccination Influenza Vacc ine (#1) [facility] Healthcare Immunizations Immunization Date Immunization Notes Care Provider Fa cility 04-16-2020 SARS-CoV-2 (COVID-19 ) mRNA-1273 vaccine Hayes Gudimella [facility] 01-12-2020 influenza virus vaccine, unspecified formulation Cheyenne Bj DO Work Phone: [facility] 11-16-2019 influenza, injectable, quadrivalent, contains preservative Hayes Gudimella [facility] 08-28-2019 tetanus toxoid, reduced diphtheria toxoid, and acellular pertussis vaccine, adsorbed Hayes Gudimella [facility] NEGATED: Highlighted row has not occurred!12-26-2021 influenza virus vaccine, unspecified formulation Hayes Gudimella [facility] Payers Date Payer Category Payer Unknown BCBS BCBS xxxxxx [id number] 2021-Present [phone] [id number] [place] [address] [id number] 1993 Unknown [id number] 2.16.840.1.915416.3.579.2.593 1993 Unknown [id number] 2.16.840.1.802403.3.579.2.727 1993 Unknown [id number] 2.16.840.1.176775.3.579.2.727 1993 Unknown [id number] 2.16.840.1.256000.3.579.2.727 1993 Unknown [id number] 2.16.840.1.118612.3.579.2.727 1993 Unknown [id number] 2.16.840.1.088441.3.579.2.1259 1993 Unknown [id number] 2.16.840.1.182433.3.579.2.1259 1993 Unknown [id number] 2.16.840.1.715467.3.579.2.1259 1993 Unknown [id number] 2.16.840.1.755756.3.579.2.1259 1993 Unknown [id number] 2.16.840.1.956501.3.579.2.1259 1993 Unknown [id number] 2.16.840.1.355118.3.579.2.1259 1959 Unknown [id number] Unknown [id number] Social History Date Type Detail Facility Start: 12-26-2021 Tobacco smoking status Ex-smoker (finding) [facility] Comment on above: denies denies Tobacco smoking status Never [facility] Comment on above: denies denies Sex Assigned At Female [facility] Tobacco smoking status NHIS Tobacco smoking consumption unknown [facility] Start: 10-05-2022 [facility] Start: 1995 Sex Assigned At Not on file [facility] Functional Status Date Assessment Result Facility 12-26-2021 Functional Status N/A [facility] [place] History of Present illness Narrative 03-14-2023 Priscilla [...] nursing note reviewed. Exam conducted with a bulb sorter present. Vitals: Estimated body mass index is [...] Cheyenne Lorenzo DO documented in this encounter [facility] Clinical Note 01-19-2022 Note Date & Type [...] Locations R1: This test was performed at: [facility], [address] [place] [address], [facility] , , [facility] Comment on above: Performed By: #### [id number] #### [facility] [address] [place] [address] Clinical Note 12-29-2021 Note Date & Type [...] Locations R1: This test was performed at: [facility], [address] [place] [address], [id number] , [place], [facility] Comment on above: Performed By: #### [id number] #### [facility] [address] [place] [id number] Evaluation + Plan note 12-26-2021 Note Date & Type Note Facility 12-26-2021 Evaluation + Plan note Diagnostic Tests PendingFluid Culture 12/26/[address] [facility] Evaluation + Plan note Note Date & Type Note Facility Evaluation + Plan note No data available for this section [facility] Evaluation note Note Date & Type Note Facility Evaluation note Diagnosis Second trimester state, incidental documented in this encounter [facility] Discharge instructions Note Date & Type Note Facility Hospital Discharge instructions No data available for this section [facility] Progress note Note Date & Type Note Facility Progress note No data available for this section [facility] Summary Purpose Family History No Family [...] content) DATE CREATED AUTHOR 08/06/2017 [facility] DATE CREATED AUTHOR AUTHOR'S ORGANIZ ATION 08/17/2017 [facility] DATE CREATED AUTHOR AUTHOR'S ORGANIZ ATION 05/21/2022 [facility] DATE CREATED AUTHOR AUTHOR'S ORGANIZ ATION 11/16/2022 [facility] DATE CREATED AUTHOR AUTHOR'S ORGANIZ ATION 05/02/2023 [facility] EPIC Patient Care team informatio n (unrecognized section and content) Last Turner Relationship Specialty Start Date End Date Alexandra Lopez MD [address] [place] [id number] PCP - General Family Medicine 11/16/22 Reason [...] BE BASED ON THE PRIMARY CLINICAL RECORDS. [employer] provides no warranty or guarantee of the accuracy or completeness of information in this document.
--- NOTE | 2023-05-15 18:53 | US_ITS ---
[address] [address] Patient Name: CUCO THOMAS MRN: [id number] date: 1995 Sex: F Assigned Patient Location: [facility] Current Patient Location: Accession/Order Number: [id number] Exam Date: 05/15/2023 19:00 Report Date: 05/16/2023 07:19 At the request of: CHEYENNE WHITT Procedure: US OB BPP w non-stress EXAMINATION: US OB BPP w non-stress HISTORY: EXCESSIVE GROWTH AFFECTING [id number] COMPARISON: Ultrasound OB biophysical 05/07/2023 TECHNIQUE: Ultrasound biophysical profile was performed in the radiology department. BREATHING MOVEMENTS: 2.0 GROSS BODY MOVEMENTS: 2.0 TONE: 2.0 QUALITATIVE AMNIOTIC FLUID VOLUME: 2.0 PRESENTATION: CEPHALIC HEART RATE: 162.7 bpm bpm. AMNIOTIC FLUID VOLUME: 18.6 cm GESTATIONAL AGE: 33 weeks 5 days CONCLUSION: Total biophysical profile score 8.0. Electronically authenticated by: BRITTANIE RAMOS Date: 05/16/2023 07:19
[2023-05-15 19:31] VITALS: BP 107/64; PULSE 73
== END 2023-05-15 20:09 | disposition home or self-care (01) ==
LOC: FBCO 07:50 → FBC 18:52
PROVIDERS: Visit Provider Obstetrics & Gynecology
DX: O36.63X0 Maternal care for excessive fetal growth, third trimester, not applicable or unspecified (principal); Z3A.33 33 weeks gestation of pregnancy
CPT/HCPCS: 76818

== ENCOUNTER 2023-05-17 07:17 | Outpatient (OUT) | payer BC, SELFPAY ==
--- OUTSIDE RECORDS SUMMARY | 2023-05-17 07:19 | XMS_ITS | CCD ---
Author Organization [facility] Care Team Providers Care Scouring Train Operator Chief Name Role Phone MOSELIAS GREGORIOALIN (RING SORTER) Unavailable Unavailab le MOSNEAG, FANNY (RING SORTER) Unavailable Unavailab le IMCA Unavailable Unavailable RENATO FANNY E Unavailable Unavailable Sherri CHEUNG Primary Care Physician [phone] PRETTY MCGRAW Admitting Unavailable PRETTY MCGRAW Attending [facility]available [facility] Ferrari Primary Care Unavailable PRETTY [...] adverse reactions to drug (disorder) 7 [facility]OF [facility] Repository (7 sources) Sulfonamides (Antibiotic); Translations: [sulfa drugs] Drug allergy [facility] (1 source) Sulfonamides (Antibiotic) Drug allergy (disorder) [facility] Repository (1 source) Sulfonamides (Antibiotic) Drug Allergy 3 Unknown [facility] Medications Current Medications Medication Drug Class(es) Dates Sig (Normalized) Sig (Original) clotrimazole 10 mg/ml topical cream (6 sources) Azole Antifungal Start: 12-26-2021 clotrimazole Top 1% Crm 1 lenin, Topical, BID, 24 gram, Refill(s) 0, [id number], 175, cm, 12/26/21 13:50:00 EST, Height/Length Dosing, [...] UA Negative Negative - 4(70) +++ mg/dL [facility] Work Phone: Blood, UA Negative Negative - 50 Jarrett/mcL [facility] Work Phone: Clarity, UA Clear [facility] Work Phone: Color, UA Yellow [facility] Work Phone: Glucose, UA Positive Negative - 1999(110) ++++ mg/dL [facility] Work Phone: Comment on above: 100 Interpretation and review of laboratory results Abnormal [facility] Work Phone: Ketones, UA Negative Negative - 160(16) ++++ mg/dL [facility] Work Phone: Leukocytes, UA Moderate Negative - 500+++ Brooke/mcL [facility] Work Phone: Nitrite, UA Negative Negative - Positive [facility] Work Phone: pH, UA 7.0 5 - 9 [facility] Work Phone: Protein, UA Negative Negative - 1999(20) ++++ mg/dL [facility] Work Phone: Spec Grav, UA 1.010 1 - 1.03 [facility] Work Phone: Urobilinogen, UA 0.2 0.2 - 12 mg/dL [facility] Work Phone: [facility] Work Phone: ED Note-Physicianon 11-12-19 23 [...] and Complexity of Problems Differential Diagnosis: [] [facility] Data External documents reviewed: Not applicable [...] day(s), # 14 cap(s), Refills(s) 0, Pharmacy: [facility] #[id number], 173, cm, 11/04/22 21:16:00 EDT, Height/Length Dosing, 90.6, kg, 11/04/22 21:16:00 EDT, Weight Dosing Disposition Plan Patient Discharge Condition Stable Discharge Disposition To home Discharge Prescription List Prescriptions cephalexin 500 mg Cap, 500 mg= 1 cap(s), Oral, q12hr Follow-up With When Contact Information Sherri CHEUNG In 3 days 11/07/2022 EDT [facility] [place] [phone] Business (1) Additional Instructions: Call the office [...] Patient seen and evaluated by the physician fws faculty assistant. Attending physician was present in the emergency department and supervised care. This visit was performed by both the physician and an APC. I performed all aspects of the MDM as documented. This report was transcribed using voice recognition software. Every effort was made to ensure accuracy, however, inadvertently computerized quality control systems manager mistakes may be present. Appropriate healthcare PPE was used in evaluating this patient. The patient was placed in a mask. The healthcare provider was wearing mask, gloves, and util (more content not included)... Normal [facility] Comment on above: Result Comment: Elec tronically Signed By: Bud Parker PA-C\.br\Date and Time Signed: 11/04/22 22:25 EDT\.br\Electronically Co-Signed By: Gorge Castro MD\.br\Date and Time Co-Signed: 11/11/22 20:46 EDT Discharge Instructionson Discharge Instructions [id number]:[address] [facility] ED Clinical Summaryon 2022 ED Clinical Summary [place] [id number] ED Clinical Summary Person Information Name: CUCO CARDENAS Richelle/[facility] Age: 27 Years : 1995 Sex: Female Language: [place] Lucian PCP: Sherri CHEUNG MD Marital Status: Single [...] 11/04/2022 22:37:58 11/04/2022 22:37:58 11/04/2022 22:37:58 ADDRESS: [address] [place] [phone] PHYS DOC NOTES: MEDICAL INFORMATION: Prescriptions Given: New Medications [id number], [address] [place], [place] [id number], [phone] cephalexin (cephalexin 500 mg Cap) 1 Capsules [...] Follow up: With: Address: When: Sherri CHEUNG [address] [place] [address] [place] [phone] Business (1) In 3 days 11/07/2022 Comments: [...] or worsening symptoms. DIAGNOSIS: Fingertip avulsion Normal [facility] ED Patient Education Noteon 11-05-2022 [...] even if your condition improves. ? Take bakv-mbh-mxzsdnd and prescription medicines only as told by [...] and water are not available, use hand green marketer. ? Change your dressing as told by [...] foot a (more content not included)... Normal [facility] ED Patient Summaryon 023 ED Patient Summary (Inserted Image. Marylu ble to display) [place] [id number] Patient Discharge Instructions Person Information Name: CUCO CARDENAS Age: 27 Years Arrival Date: 11/04/2022 21:10:12 Discharge Diagnosis: Fingertip avulsion Primary Care Physician: Sherri CHEUNG MD Provider Information Primary Provider: Advanced Cutting Machine Operator Helper:Elena PANDEY, Bud Ferrari The exam and treatment you received in the Emergency Department were for an urgent problem and are not intended as complete care. It is important that you follow up with a doctor, nurse practitioner, or physician?s fws faculty assistant for ongoing care. If your symptoms [...] Follow-up Instructions: With: Address: When: Sherri CHEUNG [address] [place] [address] [address], [place] [address] Business (1) In 3 days 11/07/2022 Comments: [...] opioids can be used to help relieve djefltbk-fq-woiatk pain and are often prescribed following a [...] ? Safely (more content not included)... Normal [facility] Consent for Treatmenton 10-13 Consent for Treatment [id number]:[address] [facility] PAP ACOG PANEL 2: 21 to 29on 05-21-2022 . . Normal [facility] Comment on above: Performed By: #### 4 [id number] #### [facility] [address] [place] [address] Dr. Jewels Looney Age Gdln ACOG Testing - Normal [facility] Comment on above: Performed By: #### 4 [id number] #### [facility] [address] [place] [address] Dr. Jewels Looney DIAGNOSIS: Comment Normal [facility] Comment on above: Result Comment: NEGA TIVE FOR INTRAEPITHELIAL LESION OR MALIGNANCY. Performed By: #### 4 [id number] #### [facility] [address] [place] [address] Dr. Jewels Looney Methodology: Comment Normal [facility] Comment on above: Result Comment: This liquid based ThinPrep(R) pap test was screened with the use of an image guided system. Performed By: #### 4 [id number] #### [facility] [address] [place] [address] Dr. Jewels Looney Note: Comment Normal [facility] Comment on above: Result Comment: The Pap smear is a screening test designed to aid in the detection of premalignant and malignant conditions of the uterine cervix. It is not a diagnostic procedure and should not be used as the sole means of detecting cervical cancer. Both false-positive and false-negative reports do occur. . Performed By: #### 4 [id number] #### [facility] [address] [place] [address] Dr. Jewels Looney Performed by: Comment Normal [facility] Comment on above: Result Comment: Rosita Haines, Window/Distribution Clerk (ASCP) Performed By: #### 4 [id number] #### [facility] [address] [place] [address] Dr. Jewels Looney Reflex Criteria: Comment Normal [facility] Comment on above: Result Comment: The HPV DNA reflex criteria were not met with this specimen result therefore, no HPV testing was performed. . Performed By: #### 4 [id number] #### [facility] [address] [place] [address] Dr. Jewels Looney Specimen adequacy: Comment Normal [facility] Comment on above: Result Comment: Sati sfactory for evaluation. Endocervical and/or squamous metaplastic cells (endocervical component) are present. Performed By: #### 4 [id number] #### [facility] [address] [place] [address] Dr. Jewels Looney Reminderson 01-19-2022 Reminders - From: Hayes Moura MD To: [facility] - Clinical; Sent: 01/16/2022 15:19:01 EST [...] and declines any questions or concerns. Normal [facility] Coding Summary.on 12-31-2021 Coding Summary. CD:[id number] Gh0bWw +PGhlYWQ+SK6XOFUlM08huFBfv X9VR1bAJG2WCJLJDUWDLY9CXP5 kkHV0ZSnnN6ZwbjFh TeynyDDeFS36SSb4TKH6kZtvGN ootW1jcAIvB4o6UnChMA80bI33 AVgoZCBfVvN5XhOszobfwJOz V1shOqDrnKYwMre+PHRhYmxlIH fjBJKaCGthCCMgSgRdfWkiZP1y Md6hEYKvXWIdyKvqkGWeBfRc l3fiYOVyEUkiNI2ooSdsX8MmlV O0TBWog3v0Ff96cZJ+PHRkIHN0 wSoyFUaii349RzOzk9baPPY7 dKVfPJshITC7R35kt9L2NBMiJM UtVZU4oFP1xS7gdVmijuueT5Sh fHStZgS3HOG7uEXxzJ2llDoq ymlieY5yKgl+Z76QKP3WHNKGYI 9DTkk7W9YmRmnrqFW+AQ71JBPv HN50oHHibJQpf1wowZt7YsHg GNKwNMV0nMgkEHwsg9PrHUEhD9 5bwNAxd5T3ESFjfJvcoCCxUyIq gFC9sD9vZBuwscqws6xxtzjr Sjglb8gvzn47nD31W19gTByrPC NtXCJ8IAUwHYOziHkawd6cdN8z Ii8+HXqso6iep0fovUa8VtVl XMLaftKmdVyaAZW3b8SmUa11R8 VvqNbvq0WkCex6gm63hWLas1A3 wVX5THruSNNgtF5hPNcfGnJ8 RVDfAxEapF06rNIoOVerBa0mcQ kizZpkID3xSMBmkcnqRVWpvH8k QLRmiBLptWtpLM8pLYGudpmu q525DwKaECL6IYHbaVObT3JbpE 8wXmQjJKOjGSAiU2HsbFWrXYbw L827OUayFkF3LREuvdSlQ7Ym HFAgaGqbRmR7f8D3Xa8Ae3Hsti fkSQV1VFyxQGSsOyDvBlFdVrC4 V9IuSrb0TEUbiUjgMZ1kG2Ad PILshzbnouiheZU6BBNdHNIsfN 42oUPtYOzjTb2kx9E4y556VMZs KVLibL19Zd5eyHalVAXrzRAW gQ4pjlmod9utozfqQeDzDPUpAJ d4MXy3QUHzoLdoLcSxPIM9LhV7 TSI1aKSiuE4jxPlqwxxsrR6s Oyc+O54anA9tCWW3JXN8zwviZM DprjZuKD46LL78G7AjXksomGDr bGU+HLRffyCxmCszJJ9xBqEj j2xsr7AdUVseW0GwMNEkHLfzKt l3TRBfAQQ3iIA2mC0yVDKvDBxx u8T8jUB8A8QkjiNefw8yc8mk WUGhAFhoI87ayFDow3F4NWVfsS V7MLRmdQvgZkVduB78Fhc+PGNv dYdod4LoMcaea6mjs2jtcFu4 ZsJdOFXoioUwyBduCUT1l9LyXf 60B38uKKfpGMMwFTFtEFCjKEFv aZwcbs4doO6vVu5+PGNvbCB3 oUA3iW4uEYUmQyC1IWgsZ370Zs JvsZUgNaonh5dtg6qnhSh3EkAy NHVcsxVsqCavCVF0p9YpQc86 E74wIXlpMHGcWJJxAGBeRCGkpZ rcwm0hkK1aEg5+DM3zm0ybbw97 bU16jDD+COIdAOA5lVyxPPwj WXKlwT5tZSipIsV3GIPiLaDgoU 01nYZnQIbiJf4jvGlhgAazNJ1m KMKicoloc193SsRkg4lcPIRd mAItZIvnINF6Q34ig6D4TIZmLD GwFWL3cPF5mJ8rfEiukvoffGPd bYfeulRonBjgYEvsHHadA090 IHRvcDsnPlBhdGllbnQgTmFtZT p4D9PjZza1ELTzdLsiLA4jvFXt LRioUw0nqJalaIbcCX3nYBRg fdzfi971GuElf3mdLYBiyZOjDN ltEZE6S17ra0X9RZMaJNRtHCK8 xIX0rT8smCgaxjphuKLhxIxu lqRrqUcjSBcnEZisC183QWYrnY ebMkJqpuOeWNHskGJ4OV14CP58 xPKzn7T7qHF7Q8UqIUPyiped nesktZM1VWIzFXJnbB70Tz4gtE ezOt3rEYBrBEV2BLRbnYSlR5Fq dL6eFdDoZGRgZTUvD9UjuDKg QXqfM984JQtjYmA1ICZbeeWcK7 PcRHVvyRkaFgD6z8Z7Bs9RQ3G0 BY89XU17zYAcz4F7sEB8I7Xi KFPpoffzufotgAV2NKJgXDHymO 84Gp8bhQcgKt6cKSExZRF3EFVb iFLfW4VgkD7zTpOfAPAiXZDj P4GwvYAmDRpfZ097TVabAbC5RC EdioSgL0JbPDLlwDhyMrA9v5T0 Iz8OKXn4BV54JP66cXAcy5K6 fVP9U5XoFVZyygahswekoWZ9BJ ZaAJOwmH69Rb4icSreBv2rYSIc JGE5MFFwcFFrT6EkfP9nMiEe YPJnONFtZ4KhfFYvQLvgZ089JO shWgS7ZTLtvqLvZ9HhUGTasPfx GaD2w3O8Wq6THEQhVD68EJF7 mVD0VH96YN22Y4EwIwvmkWUfxW U+PHRhYmxlIHdpZHRoPScxMDAl WmUqbJrxST2gWg2cPRVtBXTl nWfuaJNtCyZzz3ioIAQsCEubMD 1qqJrhR5PtjQU4OXDqe0l6Ln32 T65xT0PyqBN+EEVnjQY9dMQ9 cF3gWrNqCmX4DOnxD136IdKpqR McNwfjo9xwi5wccWq3FmM0CJXz fsAajOhdCBQ1x3WvTp09X40o IHdpZHRoPSIxNSUiIHZhbGlnbj 7oqR4lIm9+JXBtvBD5oMB5bF0c VbEzXaT4BOcbH099LeFmtQZd Kqttb6arr3vciUy7LdDuKEDxpj EbwFjkKRN7t4ZiDq81F1RllVsu v5LsPfc9hj42iOAuv5I7dYW5 R9CzTQSqsdxvwXTjvQlhVR7aAP HwqxmsEGKgdQ2kIBEcI2p6HfPf RbU5HCqlP1UqmaM0SRRztYCr JHfcHDU1W61gj4B7EVSnELGnHJ E0nHE3bC8xoUgsfcovwFXloAob hyTswKcgWIaySUuxZ047OZUl nPnmSUHtnU9cCUQtcLNthLlcVU 0hHZTliemiUiUACYMWZ42UCCMG Y7LAGB6dOkljmOE+PHRkIHN0 cGrjVMpgROOaaO7yPZCaS0e7Me UlIvQ2RNihG4NcCWJeoskfYx72 jM2lPhBnFnC6VFicC2OzqnV5 NCVnkUEiBXfkPLT9R94wk2B5FB TbZAWtWTW0cHJ6uN2ctKhzvjgd bGVmdDsgdmVydGljYWwtYWxp U042DPVhrKwePgH8PiBkPwR0YZ D8D7SvVmh5ECOylBnfSX4rcPOt QRctCc7fpRjgoKfjLI1tEXHh itleHBVhmE5hQVYrgGTneUwsAS 6tAENrhovns835ZkUoHSY0BLJz uNMzR2EzcQ2mGrTnNMUvZUQj I3TabZGmMYprQ211PUbrUjL9OE EydoVsD7HvEHQuxQkhUaI0t2S7 Ld2rJAVVIMWqvxqptOQ+PHRk VOY1dYzhYQfrKYOfnP5zUSNhH6 n2LiUlBuX7SGzzQ6VqWQViyvlk Sm74zU4dFvLyRyA8UOrdT8Jc hvP2OAPnzSIqICtlWGF3O39rz7 E7CEHyXTXxQYX7jCA1pE4wuWdx bjogbGVmdDsgdmVydGljYWwt BAtdD861DRJtmCrhRbGbuWQnEY wvdGQ+JVXyWZG5dPfiFGzwZYJo xG0xNSSuV1s8CfZfBtF6QQsc C6KbNXBrhakgYx08zD8vGyDwQm V8DFlxC1PwbjA1MSBhrFMlAPia ZSY6P00wd4F9KBLvUSMjNZS5 wHP0gZ4mhFnhmpqieNOvnAbdqg FkdRcbWTlrUEqoN392QVIclMqx BirjJaZYmb4dVY4qBinplKA+ ZZ76zg94A5FeEswoXsd6QFSuPZ A5aKC6lL8qIKYeWPvwt0U0iBC0 D1AouhWvye4hz4hlTJYiBFht X05yzBIfm4T9FBGsgVX4HYQfvG hjBbOskX21Ijo+ETHrtLwmf4Vs Qeydo6hmp8fttGm6LbEyXOBj uuQuzRhvDBO1g8GeZc45U81nPS tbKFCrXSLfPNMwDJGxrUvksl1l aH0hXs7+GDLefJD8vFB6uK6y BiKsZxP9RJsrU783YkImjURzYv vss2rcj8xfxCl0EwWiMTBiuuNq aQrwPND8f2EbSf87S3MkcOub j5QrQst4kh49sBLra0R6aXM9I2 WgJNNasjqbiFSrmQicMT7cQSNs owvaVYLbcG1mLREcL4u8CfAz UrW9AJblL3GxbgS8HEIxuELiJL BraGVOcV0hkvfin1ublmypFkMs WYAiMVu0XGf7ZMOtgYifPkXu MWJ9FnP0KGB7nVNygP7vjCithx savA4lEsf+IOa3k9ndmATlPO8n hQD7YH53DE62sVUvv5O4wSO6 E6JfZJTvcalwaghzwXV2WROvFD GmcI48Rx7jsRyfGl7yGLGhHXT5 CXEtxWFsO2ZsgX9kShCuUSCt MSFmX0LsrIZtOAyfO143VDouCn Q7ASLkxnKqN5AvKZCpeOlcVtD3 e0Q6Xn1PSB30LH06WB42iPRn e1Z2vAY6O2PuTIEugojnjhghzD C9QAAuDWDrjN20La4nlOjzJa4d LBCdDPV4TTJibLViG3BdvZ1s ZbFqQIGlUBNcM8NcgDCdKMefJ7 93RDtlBlJ7JINlygAzZ2SjUXNg bWnoKkI6l4H8Uq7ECg30ZS94 XT79nWIkq8H3hYX9Z1PjOERrly aglhnvuKH9MWXcZKHqsB57Oj7y qTdnPm8rRCNaJHQ3CQJgdUHb O1AreM4tMoToSMPnIZDhM0UqoV ZhNVblQ783WPbtVvE8BXAeinIz S5QcSTGfxWbgHnT4r1B3Bh8I DPigqwe3Z6IqQeirlLE+PC90YW AzMP75mLAsxUGld6ujhWp3ExKy DMSjXIJ9mKjcBAeti3UaBEEn Y29s (more content not included)... Normal [facility] Family Medicine Office/Clini c Noteon [...] Tobar to record this visit. JEAN CARLOS poison information specialist and provider reviewed before signing. Completed by: Rosa Isela Rouse/Angeli Ignacio. Pated by Priyanka Mosley, Quality Wire Communications Engineer. Follow-up No qualifying data available Problem List/Past [...] acel/tetanus ad (more content not included)... Normal [facility] Comment on above: Result Comment: Elec tronically Signed By: Hayes Moura MD\.br\Date and Time Signed: 12/27/21 15:46 EST\.br\Electronically Co-Signed By: Priyanka Mosley\.br\Date and Time Co-Signed: 12/26/21 22:49 EST RENETTAZACHkostas 01-02-2017 CNOV Office Visit (AGEXPHUD) [facility] ([id number]) 1995 FDate Time Provider Ixybtgqnzl71/22/17 2:30 PM FANNY GROSS (DESMNOD) AGEXPHDANAY During your visit today, we recorded [...] Yes. To reduce yoursymptoms, you can:?Take an kdif-xwo-lbjqtda pain reliever to reduce the pain?Rinse your [...] pulsating irrigation device (sample brand names: Grossan HydroPulse,WaterSanibel Sunglass Sinusense Water Pulsator) ? These are battery-powered [...] 4 - HivesDate Reviewed: 01/02/2017Reviewed by: Fanny ([facility]) Mosneakathy - Fully AssessedReason for Visit: [...] reduce your symptoms, you can: ?Take an yiki-ags-pfgdjeh pain reliever to reduce the pain ?Rinse [...] with your doctor This topic retrieved from [facility] Patient education: Rinsing out [...] ?A pulsating irrigation device (sample brand names: CSS Corpan HydroPulse, activ8 Intelligence Sinusense Water Pulsator) ? These are battery-powered [...] to improve.Follow-up and Disposition History RecordedEncounter Number: [id number] Status:Closed by FANNY GROSS CNP on 01/02/17 [facility] PROGRESSon 01-02-2017 PROGRESS HNO ID: [id number] thor: Fanny (Desmond) Arleyervice: (none)Author Type: Nurse [...] MG-POTASSIUM CLAVULANATE 125 MG TABLETFanny Gross CNP [facility] CNOVon 11-12-2016 OV Office Visit (AGEXPHUD) CUCO DEVLIN ([id number]) 1995 [facility] Time Provider Eebscbhglr99/2/17 8:15 AM FANNY GROSS (DESMOND) AGEXPHUD During [...] too much?Breathing in harsh chemicals, such as tester food products or gasoline?Drinking too much alcohol or smoking [...] Other causes of laryngitis are treated on hiusn-lu-ogil basis.-Voice rest is used for acute laryngitis, [...] Laryngitis, acute [J04.0]Order(s):ALERE STREP A TEST (AG) [0912441] Order #: [id number] THROAT CULTURE [SQTHRCUL] Order #: [id number] FUTURE lidocaine viscous (LIDOCAINE VISCOUS) 2 % [...] much ?Breathing in harsh chemicals, such as tester food products or gasoline ?Drinking too much alcohol or [...] causes of laryngitis are treated on a xbew-lo-iiyl basis. -Voice rest is used for acute [...] to do for your baby. Retrieved from [employer] ordered this encounter Disp Refills Start End LIDOCAINE 2 % MUCOSAL SOLUTION 100 * 0 11/12/2016 Route: ORAL Sig: Take 5 mL by mouth four times daily as needed for Pain (swish and spit, do NOT swallow).Disposition: Return if symptoms worsen or fail to improve.Follow-up and Disposition History RecordedEncounter Number: [id number] Status:Closed by FANNY GROSS CNP on 11/12/16 [facility] PROGRESSon 11-12-2016 PROGRESS HNO ID: [id number] thor: Fanny (Desmond) Arleyervice: (none)Author Type: Nurse [...] ICD10: J04.0- Written educational material DESMOND Karimi [facility] Throat Cultureon 11-12-2016 Throat Culture Test performed at [facility] No group A beta streptococci cultured. Normal [facility] Comment on above: Performed By: #### C THRT ####[facility] [place], [place] [address] Vital Signs Date Time Vital Sign Value Performing Clinician Facility 03-14-2023 09:31-0500 Body mass index (BMI) [Ratio] 31.17 kg/m2 Cheyenne Bj DO Work Phone: [facility] 03-14-2023 09:31-0500 Body weight 92.99 kg Cheyenne Bj DO Work Phone: [facility] 03-14-2023 09:31-0500 Diastolic blood pressure 66 mm[Hg] Cheyenne Bj DO Work Phone: [facility] 03-14-2023 09:31-0500 Systolic blood pressure 130 mm[Hg] Cheyenne Bj DO Work Phone: [facility] 12-26-2021 13:47-0500 Blood Pressure Location Hayes Gudimella [facility] 12-26-2021 13:47-0500 Body temperature 96.8 [degF] Hayes Gudimella [facility] 12-26-2021 13:47-0500 Diastolic blood pressure 72 mm[Hg] Hayes Gudimella [facility] 12-26-2021 13:47-0500 Heart rate 67 /min Hayes Gudimella [facility] 12-26-2021 13:47-0500 Respiratory rate 16 /min Hayes Gudimella [facility] 12-26-2021 13:47-0500 SaO2% (BldA) [Mass fraction] 98 % Hayes Gudimella [facility] 12-26-2021 13:47-0500 Systolic blood pressure 112 mm[Hg] Hayes Moura [facility] Encounters Encounter Date Encounter Type [...] 11-05-2022 Emergency department patient visit Gorge Castro Facility:[facility] Start: 05-14-2022 End: 05-14-2022 ambulatory PRETTY VIVAS . Facility: Start: 12-26-2021 End: 12-27-2021 ambulatory MD Hayes Moura Facility:[facility] Start: 12-26-2021 End: 12-26-2021 Lab Drop off Hayes Moura [facility] Start: 12-26-2021 End: 12-26-2021 Patient encounter procedure Hayes Moura [facility] Start: 11-12-2016 End: 11-13-2016 Ambulatory FANNY (RING SORTER) [facility] Start: 11-12-2016 End: 11-12-2016 Ambulatory FANNY (RING SORTER) [facility] Procedures Date Procedure Procedure Detail Performing Clinician Start: 03-14-2023 Urnls dip stick/tabl et rgnt non-auto w/o micrscp Cheyenne Bj DO Work Phone: Start: 02-11-1998 Adenoid excision Hayes Gudimella Plan of Treatment Date Care Activity Detail Author Start: 04-04-2023 End: 04-04-2023 Patient encounter procedure 04/04/2023 9:10 AM EST Routine [facility] [address] [place] [address] Pretty Vivas PA [address] [place] [address] [facility] Start: 10-12-2022 Influenza vaccination Influenza Vacc ine (#1) [facility] Healthcare Immunizations Immunization Date Immunization Notes Care Provider Fa cility 04-16-2020 SARS-CoV-2 (COVID-19 ) mRNA-1273 vaccine Hayes Gudimella [facility] 01-12-2020 influenza virus vaccine, unspecified formulation Cheyenne Bj DO Work Phone: [facility] 11-16-2019 influenza, injectable, quadrivalent, contains preservative Hayes Gudimella [facility] 08-28-2019 tetanus toxoid, reduced diphtheria toxoid, and acellular pertussis vaccine, adsorbed Hayes Gudimella [facility] NEGATED: Highlighted row has not occurred!12-26-2021 influenza virus vaccine, unspecified formulation Hayes Gudimella [facility] Payers Date Payer Category Payer Unknown BCBS BCBS xxxxxx [id number] 2021-Present [phone] [id number] [place] [address] [id number] 1993 Unknown [id number] 2.16.840.1.396676.3.579.2.593 1993 Unknown [id number] 2.16.840.1.853654.3.579.2.727 1993 Unknown [id number] 2.16.840.1.490225.3.579.2.727 1993 Unknown [id number] 2.16.840.1.972508.3.579.2.727 1993 Unknown [id number] 2.16.840.1.334544.3.579.2.727 1993 Unknown [id number] 2.16.840.1.528274.3.579.2.1259 1993 Unknown [id number] 2.16.840.1.944806.3.579.2.1259 1993 Unknown [id number] 2.16.840.1.193083.3.579.2.1259 1993 Unknown [id number] 2.16.840.1.208716.3.579.2.1259 1993 Unknown [id number] 2.16.840.1.600119.3.579.2.1259 1993 Unknown [id number] 2.16.840.1.779317.3.579.2.1259 1959 Unknown [id number] Unknown [id number] Social History Date Type Detail Facility Start: 12-26-2021 Tobacco smoking status Ex-smoker (finding) [facility] Comment on above: denies denies Tobacco smoking status Never [facility] Comment on above: denies denies Sex Assigned At Female [facility] Tobacco smoking status NHIS Tobacco smoking consumption unknown [facility] Start: 10-05-2022 [facility] Start: 1995 Sex Assigned At Not on file [facility] Functional Status Date Assessment Result Facility 12-26-2021 Functional Status N/A [facility] [place] History of Present illness Narrative 03-14-2023 Priscilla [...] nursing note reviewed. Exam conducted with a molding and trim installer present. Vitals: Estimated body mass index is [...] Cheyenne Lorenzo DO documented in this encounter [facility] Clinical Note 01-19-2022 Note Date & [...] Locations R1: This test was performed at: [facility], [address] [place] [address], [facility] , , [facility] Comment on above: Performed By: #### [id number] #### [facility] [address] [place] [address] Clinical Note 12-29-2021 Note Date & Type [...] Locations R1: This test was performed at: [facility], [address] [place] [address], [id number] , [place], [facility] Comment on above: Performed By: #### [id number] #### [facility] [address] [place] [id number] Evaluation + Plan note 12-26-2021 Note Date & Type Note Facility 12-26-2021 Evaluation + Plan note Diagnostic Tests Pending[facility]uid Culture 12/26/21 [facility] Evaluation + Plan note Note Date & Type Note Facility Evaluation + Plan note No data available for this section [facility] Evaluation note Note Date & Type Note Facility Evaluation note Diagnosis Second trimester state, incidental documented in this encounter [facility] Hospital Discharge instructions Note Date & Type Note Facility Hospital Discharge instructions No data available for this section [facility] Progress note Note Date & Type Note Facility Progress note No data available for this section [facility] Summary Purpose Family History No [...] content) DATE CREATED AUTHOR 08/06/2017 [facility] DATE CREATED AUTHOR AUTHOR'S ORGANIZ ATION 08/17/2017 [facility] DATE CREATED AUTHOR AUTHOR'S ORGANIZ ATION 05/21/2022 [facility] DATE CREATED AUTHOR AUTHOR'S ORGANIZ ATION 11/16/2022 [facility] DATE CREATED AUTHOR AUTHOR'S ORGANIZ ATION 05/02/[address] 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 [employer] provides no warranty or guarantee of the accuracy or completeness of information in this document.
[2023-05-17 13:05] VITALS: BP 124/80; PULSE 74
== END 2023-05-17 13:52 | disposition home or self-care (01) ==
LOC: FBCO 07:17 → FBC 12:59
PROVIDERS: Visit Provider Obstetrics & Gynecology
DX: O41.00X0 Oligohydramnios, unspecified trimester, not applicable or unspecified (principal)
CPT/HCPCS: 59025

== ENCOUNTER 2023-05-21 06:57 | Outpatient (OUT) | payer BC, SELFPAY ==
--- OUTSIDE RECORDS SUMMARY | 2023-05-21 06:59 | XMS_ITS | CCD ---
Author Organization [facility] Care Team Providers Care Blood Bank Credit Clerk Name Role Phone MOSDARLINE FANNY (RAIL SIGNAL DESIGNER) Unavailable Unavailab le MOSNEAG, FANNY (RAIL SIGNAL DESIGNER) Unavailable Unavailab le IMCA Unavailable Unavailable RENATO, FANNY E Unavailable Unavailable Sherri CHEUNG Primary Care Physician [phone] PRETTY MCGRAW Admitting Unavailable PRETTY MCGRAW Attending Unavailable DR CARIDAD RAMOS Primary Care Unavailable PRETTY MCGRAW Consulting Unavailable MD Zeny Hayes Attending Unavailable MD Zeny Hayes Admitting Unavailable Gorge Castro Attending Unavailable MD Zeny Hayes Attending Unavailable MD Zeny Hayes Attending Unavailable MD Zeny Hayes Admitting Unavailable Alexandra Lopez MD Primary Care Provider PRETTY VIVAS Attending Unavailable CHEYENNE LORENZO Attending Unavailable PRETTY VIVAS Attending Unavailable CHEYENNE LORENZO Attending Unavailable CHEYENNE LORENZO Attending Unavailable CHEYENNE LORENZO Attending Unavailable CHEYENNE LORENZO Attending Unavailable Allergies Allergy Classification Reported Allergen(s) Allergy Type Date of Onset Reaction(s) Facility (2 sources) Sulfonamides (Antibiotic); Translations: [SULFA (SULFONAMIDE ANTIBIOTICS)] Propensity to adverse reactions to drug (disorder) 7 AOF [facility] [place] [facility] (7 sources) Sulfonamides (Antibiotic); Translations: [sulfa drugs] Drug allergy [facility] (1 source) Sulfonamides (Antibiotic) Drug allergy (disorder) [facility] (1 source) Sulfonamides (Antibiotic) Drug Allergy 3 Unknown [facility] Medications Current Medications Medication Drug Class(es) Dates Sig (Normalized) Sig (Original) clotrimazole 10 mg/ml topical cream (6 sources) Azole Antifungal Start: 12-26-2021 clotrimazole Top 1% Crm 1 lenin, Topical, BID, 24 gram, Refill(s) 0, [facility] #[id number], 175, cm, 12/26/21 13:50:00 EST, Height/Length Dosing, [...] 12-26-2021 Episodic Substance-related disorders (6 sources) Smoker 10-05-2020 Chronic Comment on above: Added secondary to [...] UA Negative Negative - 4(70) +++ mg/dL [facility] Work Phone: Blood, UA Negative Negative - 50 Jarrett/mcL [facility] Work Phone: Clarity, UA Clear [facility] Work Phone: Color, UA Yellow [facility] Work Phone: Glucose, UA Positive Negative - 1999(110) ++++ mg/dL [facility] Work Phone: Comment on above: 100 Interpretation and review of laboratory results Abnormal [facility] Work Phone: Ketones, UA Negative Negative - 160(16) ++++ mg/dL [facility] Work Phone: Leukocytes, UA Moderate Negative - 500+++ Brooke/mcL [facility] Work Phone: Nitrite, UA Negative Negative - Positive [facility] Work Phone: pH, UA 7.0 5 - 9 [facility] Work Phone: Protein, UA Negative Negative - 2000(20) ++++ mg/dL [facility] Work Phone: Spec Grav, UA 1.010 1 - 1.03 [facility] Work Phone: Urobilinogen, UA 0.2 0.2 - 12 mg/dL [facility] Work Phone: [facility] Work Phone: ED Note-Physicianon 10-01-20 23 ED Note-Physician Basic Information Time Seen: Elena PANDEYBud Vega 11/04/2022 21:19 Chief Complaint Pt reports [...] day(s), # 14 cap(s), Refills(s) 0, Pharmacy: [id number], 173, cm, 11/04/22 21:16:00 EDT, Height/Length Dosing, 90.6, kg, 11/04/22 21:16:00 EDT, Weight Dosing Disposition Plan Patient Discharge Condition Stable Discharge Disposition To home Discharge Prescription List Prescriptions cephalexin 500 mg Cap, 500 mg= 1 cap(s), Oral, q12hr Follow-up With When Contact Information Sherri CHEUNG In 3 days 11/07/2022 EDT [address] [facility] [place] [id number]- Business (1) Additional Instructions: Call the office [...] Patient seen and evaluated by the physician studio assistant. Attending physician was present in the emergency department and supervised care. This visit was performed by both the physician and an APC. I performed all aspects of the MDM as documented. This report was transcribed using voice recognition software. Every effort was made to ensure accuracy, however, inadvertently computerized territory outside sales manager mistakes may be present. Appropriate healthcare PPE was used in evaluating this patient. The patient was placed in a mask. The healthcare provider was wearing mask, gloves, and util (more content not included)... Normal [facility] Comment on above: Result Comment: Elec tronically Signed By: Bud Parker PA-C\.br\Date and Time Signed: 11/04/22 22:25 EDT\.br\Electronically Co-Signed By: Gorge Castro MD\.br\Date and Time Co-Signed: 11/11/22 20:46 EDT Discharge Instructionson Discharge Instructions [id number]:12 7 Normal [facility] ED Clinical Summaryon 2022 ED Clinical Summary [place] [id number] ED Clinical Summary Person Information Name: CUCO CARDENAS Richelle/[facility] Age: 27 Years : 1995 Sex: Female Language: Mosotho PCP: Sherri CHEUNG MD Marital Status: Single [...] 11/04/2022 22:37:58 11/04/2022 22:37:58 11/04/2022 22:37:58 ADDRESS: [address] [place] [id number] PHYS DOC NOTES: MEDICAL INFORMATION: Prescriptions Given: New Medications [id number], [address] [place], [place] [phone], [phone] cephalexin (cephalexin 500 mg Cap) 1 Capsules [...] Follow up: With: Address: When: Sherri CHEUNG [address] [place], [place] [address], [place] [address] Business (1) In 3 days 11/07/2022 Comments: [...] or worsening symptoms. DIAGNOSIS: Fingertip avulsion Normal [facility] ED Patient Education Noteon 11-05-2022 [...] even if your condition improves. ? Take sacc-zbn-wydmklu and prescription medicines only as told by [...] and water are not available, use hand repairer recreational vehicle. ? Change your dressing as told by [...] foot a (more content not included)... Normal [facility] ED Patient Summaryon 023 ED Patient Summary (Inserted Image. Marylu ble to display) [place] [id number] Patient Discharge Instructions Person Information Name: CUCO CARDENAS Age: 27 Years Arrival Date: 11/04/2022 21:10:12 Discharge Diagnosis: Fingertip avulsion Primary Care Physician: JONATAN STEINBERG, Sherri Milligan Provider Information Primary Provider: Advanced Sales Recruiting Coordinator:Bud Parker PA-C The exam and treatment you received in the Emergency Department were for an urgent problem and are not intended as complete care. It is important that you follow up with a doctor, nurse practitioner, or physician?s studio assistant for ongoing care. If your symptoms [...] Follow-up Instructions: With: Address: When: Sherri CHEUNG [address] [place], [place] [address], [place] [address] Business (1) In 3 days 11/07/2022 Comments: [...] opioids can be used to help relieve xjszcmbn-cb-wcxdma pain and are often prescribed following a [...] ? Safely (more content not included)... Normal [facility] Consent for Treatmenton 10-13 Consent for Treatment [id number]:127 Normal [facility] PAP ACOG PANEL 2: 21 to 29on 05-21-2022 . . Normal [facility] Comment on above: Performed By: #### 4 [id number] #### [facility] [address] [place] [address] Dr. Jewels Looney Age Gdln ACOG Testing - [facility] Comment on above: Performed By: #### 4 [id number] #### [facility] [address] [place] [address] Dr. Jewels Looney DIAGNOSIS: Comment Normal [facility] Comment on above: Result Comment: NEGA TIVE FOR INTRAEPITHELIAL LESION OR MALIGNANCY. Performed By: #### 4 [id number] #### [facility] [address] [place] [address] Dr. Jewels Looney Methodology: Comment Normal [facility] Comment on above: Result Comment: This liquid based ThinPrep(R) pap test was screened with the use of an image guided system. Performed By: #### 4 [id number] #### [facility] [address] [place] [address] Dr. Jewels Looney Note: Comment Normal [facility] Comment on above: Result Comment: The Pap smear is a screening test designed to aid in the detection of premalignant and malignant conditions of the uterine cervix. It is not a diagnostic procedure and should not be used as the sole means of detecting cervical cancer. Both false-positive and false-negative reports do occur. . Performed By: #### 4 [id number] #### [facility] [address] [place] [address] Dr. Jewels Looney Performed by: Comment Normal [facility] Comment on above: Result Comment: Rosita Haines, Distillery Laborer (ASCP) Performed By: #### 4 [id number] #### [facility] [address] [place] [address] Dr. Jewels Looney Reflex Criteria: Comment Normal [facility] Comment on above: Result Comment: The HPV DNA reflex criteria were not met with this specimen result therefore, no HPV testing was performed. . Performed By: #### 4 [id number] #### [facility] [address] [place] [address] Dr. Jewels Looney Specimen adequacy: Comment Normal [facility] Comment on above: Result Comment: Sati sfactory for evaluation. Endocervical and/or squamous metaplastic cells (endocervical component) are present. Performed By: #### 4 [id number] #### [facility] [address] [place] [address] [address] Jewels Looney Reminderson 01-19-2022 Reminders - From: Hayes Moura MD To: [facility] - Clinical; Sent: 01/16/2022 15:19:01 [...] and declines any questions or concerns. Normal [facility] Coding Summary.on 12-31-2021 Coding Summary. CD:[id number] Gh0bWw +PGhlYWQ+CN6HWWSsJ31nkUTbc T4CO3hYHG2SJTWEEXYECA6JPX0 hdCJ1ZYalB8PfqyEp CnebuNYyWW77QWp9VAL6kWhmSK usoH5dnXVmT2t1DdQyFC47sP03 WUybDEAmFqF2VlHudxotoOKo U7mwHlBkfKXhPvj+PHRhYmxlIH nyREAlNSefOYYkKySvmFojXG8c Wk1yCLLcURGjdLmuzIWvAkVz j1mnFUQvUPsuRB9xuVnvL7AnnR J1CINqt6c2Xn39bOZ+PHRkIHN0 uXmhGKsxu774IfVul3fgUGF6 aQAoCEjxYPL9N37gy3P9DJBuUS WzGFA9sBU6rF7rgOpszbwiD8Mb lONiPwQ4QPB4zGHlcK3mfSqj ekiicX2iEmq+W29QLQ8AIXLIGC 3ESkp8F7PvGmwidVU+HI42DYQw XV19iQAdbYDmp7nunOc6VnOt MFMjMPI9uBinZRbet4ReOZCdN9 6ddGSqi3U9WAEpvYjzcKRxWiXp zWQ0nG9aEIwdajkeo1csjhwt Wqjrm3vsmu77nE43I75aJEffJO PtIHE9FLFhVGIgcBdukw6irA8g Ii8+XIrnt0twy0uqgXi2CjDc AIKstgJikQlmXYK4a1RbQy83T4 FjbZccc9NkVkp2bl86tPVjb7M3 oYB0WAflXYEqvV6jUYinGaK9 PTFyNlNscO50gHYuHVxyUh9ywH yvdApcJQ2hZBKtfiiiBAEjmN1f DRNnyATgcSbiVE5nMVGwzcrn x387NqUyMXC7IXYkxKNjT5HcfS 7xOoIqHVEdDWYaM8AbsVQtJSfs V646HDwpDbF9LCOmdiYrN6Nl WLQcnFhqKnU7w6R3Kw5Wu9Bqxj fyRBK1LQhqGOZjKqMdYgJzTlO6 U0NcCmt3ZTMkkXdsXE0mL6Mo JLSzduyqaohkiMY1DJYqKKGljS 79mQUdGQhcGw8jw5P4e373CSRg XOYlpM41Mf0zmHkyBJIvyPDD tZ6aajkge1pdlswiFkTjOLXfWX c1TPo6SPWfsIumJsGkRBT2IcA9 PSL2sSEoeK4xhForerdepA1k Oyc+J07ivL1uLFF1QXQ9supcLP EjvaWcJO46NX09W5KsPqajeFWv bGU+PVIprfDcvZwpDL4dXdSm a7vnj7AwQFvzX0LnUYAbLRltLc s5TVUuDII9mCP6mV7bXAPkDGvm k6A8pPX5J2UfsrAojt5fl8hx SVLeNCgyM26giPYbc7G9UEBfvC S9ZRMjhRukRuAocR84Aeu+PGNv cMzab2TtTblaj9fzf9drzKq0 LjDiEJLpoeSzdIwnUOM6q9UmIw 85O27eXGcsJVAqOTJeQIJzXOHh rFiown7tkL0bEx4+PGNvbCB3 hHH5uH0yGJMiLgW4ZMhjZ839Gb LtaBAjEahpc3snw3lglMp4VxZs XAHtecYwzDdqRVC9s3FkOw31 O12xEAiuWHYfXCClUPQdFDEimW lgaa7dzV7aVv3+GW7ud8noto88 uF07lZG+ZIRxQRX4wKdrHPkm PRFavE2oKMrnIqG5JKOlVlFogP 81jDQwJClwSs6jkTzxaNyzAB3z GSOntgsrz496OaJgi0toHMQh rSMcHIadJHP7Q75hy8L5XSJeXF DkNMI7xVL4oO8smDawcnqocPEz vGkrltKdcMlwHCehAKhpE418 IHRvcDsnPlBhdGllbnQgTmFtZT n9N7IgVeo5CVOqiQylLT8axHKp JEycDe7jjMdaaPruHJ7hBQJv uozbd349XcIju1xdGTBsrDYbLD sySOY4J26qo2Y2BOGdPWOkQXJ4 tAJ4uU8ikIogbncrnECysVme zhMmyQvlIWusIQczE502QEYrdW cjTfItrsAoSEQweRZ6YB80IF08 fINzz2C3wNV8L5GmBEZjffzr qeiizLI1PMSvYYAqhD03Yh0wjA ahEr9tRDGsSXU5LRByjFVcP4Zn gJ4dKqDpKIIeLFXbH3UumVZn DBzkA931DKwkMlQ3OHDmoxRnL0 TqUBCtbXjrCeD2h8P7Ka8PP7V0 LN65CK21pKFzk7P7mAL8M0Jw MIAzfnzutlndiRQ1NVEvIATtrE 76Ai7fvDhjVw9rXIFlFCR4WYEc fSTpG6EctM7gFnQeQATjXLRa B8YlgVKiUFahZ186CDniThJ2SQ NlchQxX2NxAVXydZqvCiS0i9Z4 Wm2RVEu8IE20UN54fSHno8Q1 mTC3C3YeDHIhzjysxnydrRV1CR GzZHRsvE11Ct7ujCarUq9wTKAo LKG2EFRxlXYnK6XyrC0xNwMa ANGiFQUfW3XlgDGmCWvaS415SF eiBpL0IVHcmnTkI6OyTJZeaEeh FuJ8p7V6Bd6VPTKxKH47FHN2 vPT5XM37WP30Y0GxJnqqlGYmiP U+PHRhYmxlIHdpZHRoPScxMDAl SlTloVhvPG5eXo8qXHNvODEf xIhixVHwNdMaf0ovOMPbZNxvDX 2emSnpD5ZybUH3GKNmi4w9Jw72 G95cH3XdmNT+CPTbkVL1cSV7 aY3eDfAaVyU2QUypN157KvSbxS SfXkuuq7eve5qmnUn5XlD8QISw qhTbtXxsGFK0q2SkEq59S64d IHdpZHRoPSIxNSUiIHZhbGlnbj 7awO8sJc5+ZZGhqFY9hNN8uD6x FlQgWaE0MZliU724KgWfjHKk Lhrsa7upz6mvpSw6SzAmQWRqjj TixDmhMZR7t9OrVp47B4TksFpy i3FzSqs1cx05eYCjv4W4jED6 T4TwILPkjlblmGVaaUdlTK4rLV SyyjngWXIjwF2vSMGyQ4q0HwJc SgN3OOzqI9DbuxP2DHKstCWf LRiqAYW3L74fh6Q4WKEdDJAnHU A4iIW1hO6gkBrwvsuwgOJglFtt jxVjcQuoCOlvNRigL859PTWs vTqrFOWthT1rWLYjzVKxoQgfRD 5jPUYvgtroArJFMXCVF72IXCBT O2ZWJF4fTdjfjDU+PHRkIHN0 dYbhLGqcBIRedV5bMEXjU8v2Ec ZfUvV6RZfvH7ZoUGWsynixIn39 wI1nLhPqWcQ0THelO6ItzdW5 DLMawDEaXQtqQQK4J79qh4A7PV CrCSTvNWR2uIX8tM9hyWhposkk bGVmdDsgdmVydGljYWwtYWxp U397JBSccBloOmT9AcMiDmQ6TH W1L9VcWja1BMSpyDlnEX9vtBEb JMldWa0asVnfwFycTB5zQRIl uhcpWTEgjT6cRDFfzHRblGvaCI 2jJXCszmpoh105IuQqPPS5VRSm jKJqL6TihI7hDvIoYQIeYBPn N9VpxTSdTVbdB722QKhmPzZ1PL YiwqFmE9ZeIBMgwAisXzI0s4T4 Zc3cJKUJBPIdnefhfZQ+PHRk JAY1jMeeQLegTIJopR2iGRZcV7 q8GoJhLxN3FHolU1WtJWQedqrz Sa05uX3uPzVmLnO4YWycO3Nf feS5NDJfsDUuEXuwUMX2O50uc5 K8DXJdFDJuLFS5yJH3jG1agJjw bjogbGVmdDsgdmVydGljYWwt TGtjY636VGXuaUpfTaGijHXtNC wvdGQ+SPLiQJJ9dHxjDGtfCHBj yM6sSBQpV8v6MlKrCvH7GBfw I2MyNBPfjrktOu40xB8zIgGyRn P7AOmyG1OtaqQ2AQVopWFrHBob YUX2L54ky3R4GKFxCLDbACG3 qMI7gI0qkIpssdxydRWfkGehcp UtoJbtHZlvMYwjM441QDYtgTia BbwwHfNXam1vVZ4pDdwwiFP+ PI87wd41T8BlVgetTns2OBToCZ Q7pTH7qW9iVXSgZCslh8W7xNM0 Y7KwtwFbhw6ld4jkIINcYAez I98siFClh5P9YKWxoUT4VDUksI dxNmCbcP18Mpu+RTSljHphd5Er Uuoqx5dsh1csoLd7EwPuVBNr yvMdxGgpGTI9c2AbDy25P74dFI vyYGLvWGXiPVYuLCPpmVzivg8j xP3sJb6+NHFveYD0iPQ4nV8m XsXaCbZ0FWgjT378FgZreMSxBc klz0tob7xutJp5IkFqFVZkzwNa zRqsUKF9z4XpAe21H5UkzHcz b9ReTih2uv00tLHga2F0eCI4H3 PfMVQmcxfqaFSbbUbnYI8gCUZg nubjWUOsiH9rFMGaC9e1QyNs NaK7BQmeT4ZgpwS9GEHoxIUxQH VyvXXCdI9bmcerw6rsmjklDfZb JMWaPZr1DVy1KAUpwQikOmLv ZVK0NuL6QZB9iDSsoX1gpGrgnh osvQ4zIgg+RDj7e6wugDChPB0e jLZ5QL00TP71sNHoy6W1rKT7 C7KwTRKnwkjkfyzcfRF4EYGbWG BgjC59Wl7geMkrNb6yNTSbWRH3 AQYmuKUbI7VsrK0lKdUpMQPn UDFeM9IamZYjRJycD343RUmlOu J9DCFwfyZtA8ExOLMpvXqiBkE6 x1Q8Uh7FXI16SD49CC65kFEs z7R0jLV4N3XqJQXfjkcsdkfkzN Q4EQNxMADrxR78Ka7rqPglMf0l UEXhJPY2KTHymORpM4KvlU8t XeIhPHElUKGnD5MfdFJtDSolK8 38WDwfOhO7KTXgkfNpJ1OpIEQy tWrwIvX2o3Q8Js9RHk10YA51 DN01tBIhs9O5qAX2K5LxPMGacl tfkvzukAK3IGJhTEQljK63Da3v eSitDv7wWURcISF7LMPpmUUx L5ZaeC5mDsNmNZGkHBGaA0XaoT QwQOkqA410LUctObH7RNParpIf D4DbLHWjbHbcPwR0s2E0Sb1W HBzrjir8T5XnXzsepIE+PC90YW YbEI90nOKciSWdt4uhlPe2AaZv UBCkTER0iJnsENtiq5SePKSm Y29s (more content not included)... Normal [facility] Family Medicine Office/Clini c Noteon [...] Tobar to record this visit. JEAN CARLOS claims specialist and provider reviewed before signing. Completed by: Rosa Isela Rouse/Angeli Ignacio. Pated by Priyanka Mosley, Quality Spa Associate. Follow-up No qualifying data available Problem List/Past [...] acel/tetanus ad (more content not included)... Normal [facility] Comment on above: Result Comment: Elec tronically Signed By: Hayes Moura MD\.br\Date and Time Signed: 12/27/21 15:46 EST\.br\Electronically Co-Signed By: Priyanka Mosley\.br\Date and Time Co-Signed: 12/26/21 22:49 EST RENETTAJosefa 01-02-2017 CNOV Office Visit (AGEXPHUD) CLAUSCUCO TEE ([id number]) 1995 FDate Time Provider Rypuxalbxe92/22/17 2:30 PM FANNY GROSS (DESMOND) AGEXPHDANAY During [...] 875 MG-POTASSIUM CLAVULANATE 125 MG TABLETKatsylvia Gross, CNPKatalin Renato, RAIL SIGNAL DESIGNER 01/02/2017 2:39 PM SignedBP 125/75 Pulse 79 [...] Yes. To reduce yoursymptoms, you can:?Take an ihdt-qre-vkzqppo pain reliever to reduce the pain?Rinse your [...] pulsating irrigation device (sample brand names: Grossan HydroPulse,WaterpiRedCritter Sinusense Water Pulsator) ? These are battery-powered [...] 4 - HivesDate Reviewed: 01/02/2017Reviewed by: Fanny ([facility]) Renato - Fully AssessedReason for Visit: [...] reduce your symptoms, you can: ?Take an xsmo-kvk-nbdbhdo pain reliever to reduce the pain ?Rinse [...] with your doctor This topic retrieved from [facility] Patient education: Rinsing out your [...] ?A pulsating irrigation device (sample brand names: Off Grid Electric HydroPulse, SecondLeap Sinusense Water Pulsator) ? These are battery-powered [...] out your nose. This topic retrieved from [employer] ordered this encounter Disp Refills Start End AMOXICILLIN 875 MG-POTASSIUM CLAVULA* 20 t* 0 01/02/2017 01/12/2017 Route: ORAL Sig: Take 1 tablet by mouth every 12 hours for 10 days.Disposition: Return if symptoms worsen or fail to improve.Follow-up and Disposition History RecordedEncounter Number: [id number] Status:Closed by FANNY GROSS CNP on 01/02/17 [facility] PROGRESSon 01-02-2017 PROGRESS HNO ID: [id number] thor: Fanny (Desmond) Arleyervice: (none)Author Type: Nurse [...] MG-POTASSIUM CLAVULANATE 125 MG TABLETFanny Gross CNP [facility] CNOVon 11-12-2016 CNOV Office Visit (AGEXPHUD) CUCO DEVLIN ([id number]) 1995 FDate Time Provider Xupmzapndo54/2/17 8:15 AM FANNY GROSS (DESMOND) AGEXPHUD During [...] too much?Breathing in harsh chemicals, such as kit planner or gasoline?Drinking too much alcohol or smoking [...] Other causes of laryngitis are treated on vtfwi-mp-whec basis.-Voice rest is used for acute laryngitis, [...] has been no fever. The pain is fioerlla severity of 5/10. The pain is mild. [...] Laryngitis, acute [J04.0]Order(s):ALERE STREP A TEST (AG) [4110255] Order #: [id number] THROAT CULTURE [SQTHRCUL] Order #: [id number] FUTURE lidocaine viscous (LIDOCAINE VISCOUS) 2 % [...] much ?Breathing in harsh chemicals, such as kit planner or gasoline ?Drinking too much alcohol or [...] voice a rest. If you are a ady or need to use your voice for [...] causes of laryngitis are treated on a ldmh-qq-rxcd basis. -Voice rest is used for acute [...] to do for your baby. Retrieved from [employer] ordered this encounter Disp Refills Start End LIDOCAINE 2 % MUCOSAL SOLUTION 100 * 0 11/12/2016 Route: ORAL Sig: Take 5 mL by mouth four times daily as needed for Pain (swish and spit, do NOT swallow).Disposition: Return if symptoms worsen or fail to improve.Follow-up and Disposition History RecordedEncounter Number: [id number] Status:Closed by FANNY GROSS CNP on 11/12/16 [facility] PROGRESSon 11-12-2016 PROGRESS HNO ID: [id number] thor: Fanny (Desmond) Arleyervice: (none)Author Type: Nurse [...] ICD10: J04.0- Written educational material givenDESMOND Higginbotham [facility] Throat Cultureon 11-12-2016 Throat Culture Test performed at [facility] No group A beta streptococci cultured. Normal [facility] Comment on above: Performed By: #### C THRT ####[facility] [place], [place] [address] Vital Signs Date Time Vital Sign Value Performing Clinician Facility 03-14-2023 09:31-0500 Body mass index (BMI) [Ratio] 31.17 kg/m2 Cheyenne Bj DO Work Phone: [facility] 03-14-2023 09:31-0500 Body weight 92.99 kg Cheyenne Bj DO Work Phone: [facility] 03-14-2023 09:31-0500 Diastolic blood pressure 66 mm[Hg] Cheyenne Bj DO Work Phone: [facility] 03-14-2023 09:31-0500 Systolic blood pressure 130 mm[Hg] Cheyenne Bj DO Work Phone: [facility] 12-26-2021 13:47-0500 Blood Pressure Location Hayes [...] 98 % Hayes Gudimella [facility] 12-26-2021 13:47-0500 Systolic blood pressure 112 mm[Hg] Hayes Moura [facility] Encounters Encounter Date Encounter Type Care Provider Facility Start: 05-16-2023 End: 05-16-2023 ambulatory CHEYENNE BJ Not Available Start: 05-01-2023 End: 05-01-2023 ambulatory CHEYENNE BJ [...] 11-05-2022 Emergency department patient visit Gorge Castro Facility:[facility] Start: 05-14-2022 End: 05-14-2022 ambulatory PRETTY VIVAS . Facility: Start: 12-26-2021 End: 12-27-2021 ambulatory MD Hayes Moura Facility:[facility] Start: 12-26-2021 End: 12-26-2021 Lab Drop off Hayes Moura [facility] Start: 12-26-2021 End: 12-26-2021 Patient encounter procedure Hayes Moura [facility] Start: 11-12-2016 End: 11-13-2016 Ambulatory FANNY (RAIL SIGNAL DESIGNER) [facility] Start: 11-12-2016 End: 11-12-2016 Ambulatory FANNY (DESMOND) [facility] Procedures Date Procedure Procedure Detail Performing Clinician Start: 03-14-2023 Urnls dip stick/tabl et rgnt non-auto w/o micrscp Cheyenne Bj DO Work Phone: Start: 02-11-1998 Adenoid excision Hayes Gudimella Plan of Treatment Date Care Activity Detail Author Start: 04-04-2023 End: 04-04-2023 Patient encounter procedure 04/04/2023 9:10 AM EST Routine [facility] [address] [place] [address] Pretty Vivas PA [address] [place], [place] [id number] [facility] Start: 10-12-2022 Influenza vaccination Influenza Vacc ine (#1) [facility] Immunizations Immunization Date Immunization Notes Care Provider Fa cility 04-16-2020 SARS-CoV-2 (COVID-19 ) mRNA-1273 vaccine Hayes Gudimella [facility] 01-12-2020 influenza virus vaccine, unspecified formulation Cheyenne Bj DO Work Phone: [facility] 11-16-2019 influenza, injectable, quadrivalent, contains preservative Hayes Gudimella [facility] 08-28-2019 tetanus toxoid, reduced diphtheria toxoid, and acellular pertussis vaccine, adsorbed Hayes Gudimella [facility] NEGATED: Highlighted row has not occurred!12-26-2021 influenza virus vaccine, unspecified formulation Hayes Gudimella [facility] Payers Date Payer Category Payer Unknown BCBS BCBS xxxxxx [id number] 2021-Present [phone] [address] [place] [address] [id number] 1993 Unknown [id number] 2.16.840.1.619713.3.579.2.593 1993 Unknown [id number] 2.16.840.1.935966.3.579.2.727 1993 Unknown [id number] 2.16.840.1.240721.3.579.2.727 1993 Unknown [id number] 2.16.840.1.129281.3.579.2.727 1993 Unknown [id number] 2.16.840.1.781780.3.579.2.727 1993 Unknown [id number] 2.16.840.1.422554.3.579.2.1259 1993 Unknown [id number] 2.16.840.1.888140.3.579.2.1259 1993 Unknown [id number] 2.16.840.1.665715.3.579.2.1259 1993 Unknown [id number] 2.16.840.1.404433.3.579.2.1259 1993 Unknown [id number] 2.16.840.1.981873.3.579.2.1259 1993 Unknown [id number] 2.16.840.1.660236.3.579.2.1259 1993 Unknown [id number] 2.16.840.1.414899.3.579.2.1259 1959 Unknown [id number] Unknown [id number] Social History Date Type Detail Facility Start: 12-26-2021 Tobacco smoking status Ex-smoker (finding) [facility] Comment on above: denies denies Tobacco smoking status Never [facility] Comment on above: denies denies Sex Assigned At Female [facility] Tobacco smoking status NHIS Tobacco smoking consumption unknown [facility] Start: 10-05-2022 [facility] Start: 1995 Sex Assigned At Not on file [facility] Functional Status Date Assessment Result Facility 12-26-2021 Functional Status N/A [facility] History of Present illness Narrative 03-14-2023 Priscilla Panda, CHIVO - 03/14/2023 9:20 AM EST Note Date [...] nursing note reviewed. Exam conducted with a roasterman present. Vitals: Estimated body mass index is 31.17 kg/m as calculated from the following: Height as of 10/6/23: 5' 8 . Weight as of this [...] Cheyenne Lorenzo DO documented in this encounter [facility] Clinical Note 01-19-2022 Note Date & [...] Locations R1: This test was performed at: [facility], [address] [place] [address], [facility] , , [facility] Comment on above: Performed By: #### [id number] #### [facility] [address] [place] [id number] Clinical Note 12-29-2021 Note Date & Type [...] Locations R1: This test was performed at: [facility], [address] [place] [address], [id number] , , [facility] Comment on above: Performed By: #### [id number] #### [facility] [address] [place] [id number] Evaluation + Plan note 12-26-2021 Note Date [...] trimester state, incidental documented in this encounter [facility] Discharge instructions Note Date & [...] section and content) DATE CREATED AUTHOR 08/06/2017 [facility] DATE CREATED AUTHOR AUTHOR'S ORGANIZ ATION 08/17/2017 [facility] DATE CREATED AUTHOR AUTHOR'S ORGANIZ ATION 05/21/2022 [facility] DATE CREATED AUTHOR AUTHOR'S ORGANIZ ATION 11/16/2022 [facility] DATE CREATED AUTHOR AUTHOR'S ORGANIZ ATION 05/17/2023 [facility] EPIC Patient Care team informatio n (unrecognized section and content) 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 [employer] provides no warranty or guarantee of the accuracy or completeness of information in this document.
--- NOTE | 2023-05-21 18:59 | US_ITS ---
[address] [address] Patient Name: CUCO THOMAS MRN: [id number] date: 1995 Sex: F Assigned Patient Location: [facility] Current Patient Location: Accession/Order Number: [id number] Exam Date: 05/21/2023 19:04 Report Date: 05/22/2023 07:26 At the request of: CHEYENNE WHITT Procedure: US OB BPP w non-stress EXAMINATION: US OB BPP w non-stress HISTORY: EXCESSIVE GROWTH AFFECTING PREGNANACY O36.63X0 COMPARISON: No relevant comparison available. TECHNIQUE: Ultrasound biophysical profile was performed in the radiology department. FINDINGS: BREATHING MOVEMENTS: 2.0 GROSS BODY MOVEMENTS: 2.0 TONE: 2.0 QUALITATIVE AMNIOTIC FLUID VOLUME: 2.0 PRESENTATION: CEPHALIC HEART RATE: 142.1 bpm H.B./min AMNIOTIC FLUID VOLUME: 20.3 cm cm GESTATIONAL AGE: 34 weeks 4 days CONCLUSION: Total biophysical profile score: 8.0 Electronically authenticated by: STORM ROSE Date: 05/22/2023 07:26
[2023-05-21 19:30] VITALS: BP 133/75; PULSE 75; TEMP 35.9
== END 2023-05-21 20:00 | disposition home or self-care (01) ==
LOC: US 06:57 → FBC 18:57
PROVIDERS: Visit Provider Obstetrics & Gynecology
DX: O36.63X0 Maternal care for excessive fetal growth, third trimester, not applicable or unspecified (principal); O41.03X0 Oligohydramnios, third trimester, not applicable or unspecified; Z3A.34 34 weeks gestation of pregnancy
CPT/HCPCS: 76818

== ENCOUNTER 2023-05-24 08:41 | Outpatient (OUT) | payer BC, SELFPAY ==
--- OUTSIDE RECORDS SUMMARY | 2023-05-24 08:47 | XMS_ITS | CCD ---
Author Organization [facility] Care Team Providers Care Soundscriber Mechanic Name Role Phone MOSDARLINE FANNY (CLIP AND HANGER ATTACHER) Unavailable Unavailab le MOSNEAG, FANNY (CLIP AND HANGER ATTACHER) Unavailable Unavailab le IMCA Unavailable Unavailable RENATO, FANNY E Unavailable Unavailable Sherri CHEUNG Primary Care Physician [phone] PRETTY MCGRAW Admitting Unavailable PRETTY MCGRAW Attending Unavailable [facility] Ferrari Primary Care Unavailable [...] adverse reactions to drug (disorder) 7 [facility] Other [facility] (7 sources) Sulfonamides (Antibiotic); Translations: [sulfa drugs] Drug allergy [facility] (1 source) Sulfonamides (Antibiotic) Drug allergy (disorder) [facility] (1 source) Sulfonamides (Antibiotic) Drug Allergy 3 Unknown [facility] Medications Current Medications Medication Drug Class(es) Dates Sig (Normalized) Sig (Original) clotrimazole 10 mg/ml topical cream (6 sources) Azole Antifungal Start: 12-26-2021 clotrimazole Top 1% Crm 1 lenin, Topical, BID, 24 gram, Refill(s) 0, [facility] #[id number], 175, cm, 12/26/21 13:50:00 EST, Height/Length Dosing, [...] UA Negative Negative - 4(70) +++ mg/dL [facility] Work Phone: Blood, UA Negative Negative - 50 Jarrett/mcL [facility] Work Phone: Clarity, UA Clear [facility] Work Phone: Color, UA Yellow [facility] Work Phone: Glucose, UA Positive Negative - 1999(110) ++++ mg/dL [facility] Work Phone: Comment on above: 100 Interpretation and review of laboratory results Abnormal [facility] Work Phone: Ketones, UA Negative Negative - 160(16) ++++ mg/dL [facility] Work Phone: Leukocytes, UA Moderate Negative - 500+++ Brooke/mcL [facility] Work Phone: Nitrite, UA Negative Negative - Positive [facility] Work Phone: pH, UA 7.0 5 - 9 [facility] Work Phone: Protein, UA Negative Negative - 2000(20) ++++ mg/dL [facility] Work Phone: Spec Grav, UA 1.010 1 - 1.03 [facility] Work Phone: Urobilinogen, UA 0.2 0.2 - 12 mg/dL [facility] Work Phone: [facility] Work Phone: ED Note-Physicianon [...] day(s), # 14 cap(s), Refills(s) 0, Pharmacy: [facility] #[id number], 173, cm, 11/04/22 21:16:00 EDT, Height/Length Dosing, 90.6, kg, 11/04/22 21:16:00 EDT, Weight Dosing Disposition Plan Patient Discharge Condition Stable Discharge Disposition To home Discharge Prescription List Prescriptions cephalexin 500 mg Cap, 500 mg= 1 cap(s), Oral, q12hr Follow-up With When Contact Information Sherri CHEUNG In 3 days 11/07/2022 EDT [facility] [place] [id number] Business (1) Additional Instructions: Call the office [...] Patient seen and evaluated by the physician oral surgery assistant. Attending physician was present in the emergency department and supervised care. This visit was performed by both the physician and an APC. I performed all aspects of the MDM as documented. This report was transcribed using voice recognition software. Every effort was made to ensure accuracy, however, inadvertently computerized pan operator mistakes may be present. Appropriate healthcare PPE was used in evaluating this patient. The patient was placed in a mask. The healthcare provider was wearing mask, gloves, and util (more content not included)... Normal [facility] Comment on above: Result Comment: Elec tronically Signed By: Bud Parker PA-C\.br\Date and Time Signed: 11/04/22 22:25 EDT\.br\Electronically Co-Signed By: Gorge Castro MD\.br\Date and Time Co-Signed: 11/11/22 20:46 EDT Discharge Instructionson Discharge Instructions [id number]:12 7 Normal [facility] ED Clinical Summaryon 2022 ED Clinical Summary [place] [id number] ED Clinical Summary Person Information Name: CUCO CARDENAS [facility]helle[facility] Age: 27 Years : 1995 Sex: Female Language: Scottish PCP: Sherri CHEUNG MD Marital Status: Single [...] 11/04/2022 22:37:58 11/04/2022 22:37:58 11/04/2022 22:37:58 ADDRESS: [address] [place] [phone] PHYS DOC NOTES: MEDICAL INFORMATION: Prescriptions Given: New Medications [id number], [address] [place], [place] [id number], [phone] cephalexin (cephalexin 500 mg Cap) 1 Capsules [...] Follow up: With: Address: When: Sherri CHEUNG [address] [place], [place] [address] [address] [address] Business (1) In 3 days 11/07/2022 Comments: [...] or worsening symptoms. DIAGNOSIS: Fingertip avulsion Normal [facility] ED Patient Education Noteon 11-05-2022 ED [...] even if your condition improves. ? Take wfos-jdt-hciqgpc and prescription medicines only as told by [...] and water are not available, use hand department supervisor. ? Change your dressing as told by [...] foot a (more content not included)... Normal [facility] ED Patient Summaryon 023 ED Patient Summary (Inserted Image. Marylu ble to display) [place] [id number] Patient Discharge Instructions Person Information Name: CUCO CARDENAS Age: 27 Years Arrival Date: 11/04/2022 21:10:12 Discharge Diagnosis: Fingertip avulsion Primary Care Physician: JONATAN STEINBERG, Sherri Milligan Provider Information Primary Provider: Advanced [employer] Finishing Inspector:Bud Parker PA-C The exam and treatment you received in the Emergency Department were for an urgent problem and are not intended as complete care. It is important that you follow up with a doctor, nurse practitioner, or physician?s oral surgery assistant for ongoing care. If your symptoms [...] Follow-up Instructions: With: Address: When: Sherri CHEUNG [address] [place], [place] [address] [address] Business (1) In 3 days 11/07/2022 Comments: [...] opioids can be used to help relieve imqapqib-xi-nvwjqj pain and are often prescribed following a [...] ? Safely (more content not included)... Normal [facility] Consent for Treatmenton 10-13 Consent for Treatment [id number]:127 Normal [facility] PAP ACOG PANEL 2: 21 to 29on 05-21-2022 . . Normal [facility] Comment on above: Performed By: #### 4 [id number] #### [facility] [address] [place] [address] Dr. Jewels Looney Age Gdln ACOG Testing - [facility] Comment on above: Performed By: #### 4 [id number] #### [facility] [address] [place] [address] Dr. Jewels Looney DIAGNOSIS: Comment Normal [facility] Comment on above: Result Comment: NEGA TIVE FOR INTRAEPITHELIAL LESION OR MALIGNANCY. Performed By: #### 4 [id number] #### [facility] [address] [place] [address] Dr. Jewels Looney Methodology: Comment Normal [facility] Comment on above: Result Comment: This liquid based ThinPrep(R) pap test was screened with the use of an image guided system. Performed By: #### 4 [id number] #### [facility] [address] [place] [address] Dr. Jewels Looney Note: Comment Normal [facility] Comment on above: Result Comment: The Pap smear is a screening test designed to aid in the detection of premalignant and malignant conditions of the uterine cervix. It is not a diagnostic procedure and should not be used as the sole means of detecting cervical cancer. Both false-positive and false-negative reports do occur. . Performed By: #### 4 [id number] #### [facility] [address] [place] [address] Dr. Jewels Looney Performed by: Comment Normal [facility] Comment on above: Result Comment: Rosita Haines, Water Registrar (ASCP) Performed By: #### 4 [id number] #### [facility] [address] [place] [address] Dr. Jewels Looney Reflex Criteria: Comment Normal [facility] Comment on above: Result Comment: The HPV DNA reflex criteria were not met with this specimen result therefore, no HPV testing was performed. . Performed By: #### 4 [id number] #### [facility] [address] [place] [address] Dr. Jewels Looney Specimen adequacy: Comment Normal [facility] Comment on above: Result Comment: Sati sfactory for evaluation. Endocervical and/or squamous metaplastic cells (endocervical component) are present. Performed By: #### 4 [id number] #### [facility] [address] [place] [address] [address] Jewels Looney Reminderson 01-19-2022 Reminders - From: Hayes Moura MD To: [facility] - Clinical; Sent: 01/16/2022 15:19:01 EST Show [...] and declines any questions or concerns. Normal [facility] Coding Summary.on 12-31-2021 Coding Summary. CD:[id number] Gh0bWw +PGhlYWQ+OX0DRUVuB13vcQPuy I6BO5lFLN1ZECBWOSQLNP9JWH4 ufQO2QYzqQ4UanbYl BsjxbEQbEK26WWs3IAC6rErpRZ uikY7gcIYcR6o2IhDjQA01aO94 HIzcJTJbQgU5KoYtrdpwjAKg F6euYvHemZZjKpc+PHRhYmxlIH feZNLoLOqeFFMxMbIyvSdwQC1l Yt0uYFNtCRZevUkudYTdXbSc q5saCGAqWWyaNP7qsKolW6BgyH X5OPOla7c5Ra46dEJ+PHRkIHN0 eKogBQhyt415BnDhi1xyWGQ2 cQNjRBjvCQY9F75el0V4YCPoSY OqGNU4jQX8xT8dqAyfzuuqA5Va cPUcLtU6MUK5cTOofV8gpFig rbtbyA7nHcx+B33SGX4QCFVIDQ 8XXpz3E1RsHstldWJ+VD64CFKy WZ59iBQwwBGtr8doaSm2UpUv ZLKbGWW3nKbvCMolp2ItMWJeR5 3zlDDyp5Z5VOIxsZqtnFEyApPd qDL7fI9hNFqqmsqnl8esekfk Suxvr4ycow68tH06B45xLSplXI DnZZV4EPApQCWooGgrjl1shD1o Ii8+UDupr1xad8delNs5PePw UIXugjWyyQelXAG9n6JrCp05X4 GzuYzxq0JaKlf7dx83kDSto5Y5 mGJ0IJkfIHJjkW7qCRokOtI6 SUXzUrOveS34vPXfYYcrWy3nxO vmhRypTH5gFLSccxufYALflT8p WTNaoCNirHfwZD0fTIFaqcny x691RqUrWEK9CTVsxJFjJ0UpnM 0kCqSoSUYdUTRdQ2KkiUDhSBgv H940HLmqCwT6ODTjodFnP3Em HLCeeQqrUwM7e8N9Au8Rp0Nuef nhUSY8KYcoEJXlVeOcIxInObO8 W2CnQpp8AMHdsNwrSO3kV9Vc WUOoaqfcglxdtCH1NUSgQWZoeG 52mAMhLRpoXc2wl2G2e950GZKf GSZpjN83Hy8lqAasIFPtcSSY vK1rwrtph8naqhmfSoSkMRMiHD o0DUx1FVCclUfuIkQbNNA9DnX5 IOE4oMLcxC7foUgfqkyjoS3b Oyc+M88siW0gIQV9CXO3yevtIW ZdzpPzKB08HI27E6VgOmtqlIHr bGU+PGGktsLkrGyrSF8aYbXm p5eez2IjTIsuJ0GeFZCeUMqqJk m1UBNsPZB8sGY1lJ6eKOJrCVlw k1X8qLL0Y0FiebCvzx5vd3qt UPBtVWpzM64zjKQph8Q3QFTgpT C5JOLtcBccExSdaB34Ohy+PGNv bPdmm9HdYittk2kgc5mzsBf9 FsKdSSCvvrCpzGfiLVY1e2PgUu 99E81wVFshUWAuYXXnMHNpVMSy zNsfor4odT6cYd0+PGNvbCB3 gHA0dQ6kKSYfSfA6ILjwX128Xp TjwQRqIynki8qyz8vjmRj5NlKa HANzeqToyZduAOH0j1IiNi46 F90qNSpbHRZmYPUdWPQvXRRucB sykg2zlE7mAl3+JA1pd9xnmk74 nE47eAK+ZJIhJUF9iRdbPOeg XXBpzG8sLTymBsL0DIOpJyKdcC 03cJKoXOpvBs6lkOtlpLziZO5s EUXplesgd439IrLvo6nhCOJx sWYiVDtlAMH3Y08wz1S2NOFmTT HuEEC4cDI4dW0szQsizwbwpRNz kRqhjaUpdBcsTQldQXhtI509 IHRvcDsnPlBhdGllbnQgTmFtZT p7M6VuSay3IFOfkGknFR2lnKDe PHwsSw6jwAnruYdkOY6eFEVq cgrrd074XdQsn1tnDLYfgTEwGH nyPYZ8G74nx6M1UJLfLQOjBQO7 dTD2rK9hhFsyefwzpYEifKlu weMduQjhXFefDSmtM735HYZszQ anIsVkplFvFGWzhZQ7DP92TJ37 tNTpt9A4oQJ0P7SnMZXjcfwv jcwyoYM3OLOoUDKbtD95Ly1tcC hbGb3fZYDxBBC6HHFtuCCbR5Bw cD1kDqKnVWAyXGJaP7OihZIb HWskM462GBnkJzT2ZQBtpkGrT0 QkXRAapQddTlB6d3D8Tq6LM3I7 QY45UD14eQCin0B0eVU8Y1Up KLOsqflngdgflMD5HPOyEHDblB 33Km6daHqaVp7wFPAqEOX0LOVa uAHuR1DrfC8lCuIfIYTuFHWv B8OaiSEkUZrbJ605KXkeZjZ3IG KbhfRmL8WqUOWbnDrdNcD0n7D9 Vh5IHMl1LK70DS07cMJbm4P7 tXM6M6VmHARbobbocrbkdIN2NY ZjTJRxiB63Hy1zyXceZu9dXNKj KIZ7KYCzjHNwF0GkwE6mYlZa NKVvKURcA8SxgAYkSFbqA859HS pyXeG0VHAeesQuT9PzPZOlrUvs JiL5t8P7Ix6ZNSMcEL52KXQ7 hZM6EO21MK91F7XyAfzdtQVizR U+PHRhYmxlIHdpZHRoPScxMDAl TkRikRtiML9oRz8bWWMjVQPs vJohtTTjYcBha1knIAWnAEbcFB 6hsIkkD1WxzLO9EZIvv9m0Vv58 E01fF1DlgOS+YOIzcQK1vUV2 jY9vBmSsNrY0FVmjW011LfHajU DcWxlnj4wep3onfNw2NsA5ZEDk htWcaHqtDCY1d5RwOr60P26p IHdpZHRoPSIxNSUiIHZhbGlnbj 6dlA2iYu5+DNRqbQB1iVH5fA1m HaUvKpQ4LSzgH790UpDahFRa Kswxq2zge0thxJb3NzLwEGKzki IslBzfKQK6y3VhMe42J5LtmEkn r1HmVod9qv41kTMbo9R6rMQ9 O3UgDOLxmcuiyVGzrJueNL8iUV RsrtnyHNAyuO8tVRQhE6r1SmFh HsR5DGhpC1EzjuO8ODBnyPAu XJcdSSM9P12vp0A3MRObGLYoPA J6hWC8tE4ukMiskilrzITbnEsi xrQquSnfQIeiLAiyX222YEMi pEbeVJMalN9oMNYojSCylUaiRO 5bBJIdycgwLbRIIBIZP51PMYCA L2KEPJ0aXyoseZD+PHRkIHN0 tUbfFWofVQPhyT9kYMKcW9g3En DuCfA9YRgbF0ZtDCNylzopBt58 lI1eIzKuFpT9RScgA1BrgpZ3 UTDsjQZrPDxvYEB5T75me3H9FQ TvBHRjSDP0aVI2iN0riCizzbge bGVmdDsgdmVydGljYWwtYWxp W087FRFbpWcqXmB3XfGiMaI5EP U4K0PzHfx6QINtkRqjYL8jmIHj EModOe2kzKrvuJrsSK0hVNWy zsdsUMPmmE1bERYheTDlvTmeTL 9vCDSynxrkn120FuVcWFG3VJId jPGpL5VgvK5cHnCgEDWzBFNn S4JxiPVkOMmpO471KAaiTzY2YH HubiVgJ0UuAMZwiKrgCgJ1e3Q2 Re1iHDDGHXGcxfgecAJ+PHRk QCV2gAxyMDusBUKtoI0kUZCrJ2 k2ToAkBlD5TKnxW0AsXXMbsbqi Zj80aL0hAxAbZyZ3TXxtP0Qk mwB7KKUoiZXuAHjgWKY0Y59tj1 W8KOGfLGLoTNB9rQU4lJ7gzPck bjogbGVmdDsgdmVydGljYWwt GQjoK107QDWxoVlbFhOiuWZzMI wvdGQ+NPMbFRB2sSawSZffQAAf rU8gAMIrK7l3XkAuXeA4UUzr C5XkSARsvsgcHu24cM2yIwKeXs A4EScgX9QffsS7BRLbbDWbRMlx KMM4S60rx0H9UEJkKKWzPGP1 kFK3bJ8ysTvgrixubLKglLsnfs UzlCtbQVkiQXyqR515NMXwbNra ChprKaNUnd1hZC3lLzwogLV+ SY36bc30W4QxGnoqYmq2KBWhTS N7jTD8jG5tHVCzWKilq0P7iIQ0 R3CcvsMkun3hd7duSDGyUUcr U19yyUJbh9P2MRScmPT9KBUcnD olLjOstC34Jrt+SCRhiVlei1Ow Zkreg0las7guoYn2KuYiRHLf buIynRkbNPN6a5DjPa33E75aNF nsSRPzZPZeGQOiYHUgvVnniw5y lH5nOt8+XFOcbIN3uZL0gO0j ThNoXcX5NVshL894AeQrgHNcJw xdr1rch5puoLj5LrRoWRTmweYa iFxfIXU0c0RkPt17E8KzuBdm g6TvDac6qn53eCByy9Q5bLU3K7 HhVWAbeynzqKGddJqjGA0sWXCx csahOXYcgH4pCHCvM9u9LmKa QpN9JPgtA8FwwyE0CWEpoREjPY QrkMLUsV2zbssjx9dsucqbGjLg AAMpIAo8QJu6LDUiaJeuKsBy QRC1CzL7LBC3dCEjnE0dxJwaux tokY7vJqc+PDm4r5scfQBzRQ4w oAP1XP64FK61uWNpt6D9wGG8 U7PxKYDyktultxfdbWO7FYJwJZ FvvG60Hm1woWvgIv0cPFRnUVS3 ABBlsNWpC6LtpD1wUrBuIMVc BLLsH0EoeWByUUixX584LShlXv Z4FTQsjmSaQ9HdGHCtwSovByY9 p9A9It6DXJ11AX71PY48fULz b6G6mGQ5O2UxRGKngkyrtkzyoB J7VYKrBXWapS37Rm3lrSdoZe4n SWIjKDN2IHNyaGFdV7BylZ1d YnZeSQSaLJNvM1JduEDaDLlfN7 76AIcdYeW6LRXjypTpF0UkAVSn bGxsXyH7v8O5Oo5ZRd94CV32 KQ66hTSbe9H4oWL9J8EaKZTxiw hdldkdiQB9OXLyGCKyqP85Fn0n gLkfDy8jMRVfZNG6BSLyzTWk B6ZsgA5zMeOvJCSuDMPxQ9SmwA YyDNisL889FIokJxV4YFMivzXa I8LuQVLnjXdrEgG2c8W4Yt1T TZnjolv6P7IdOwcybJN+PC90YW YhWU79gREptPDab2wzqJi5AmFr XWWeRPQ1fIjtKFkaf3BlCZYu Y29s (more content not included)... Normal [facility] Family Medicine Office/Clini c Noteon 12-27-2021 [...] Tobar to record this visit. JEAN CARLOS international marketing specialist and provider reviewed before signing. Completed by: Rosa Isela Rouse/Angeli Ignacio. Pated by Priyanka Mosley, Quality Analytical Consultant. Follow-up No qualifying data available Problem List/Past [...] acel/tetanus ad (more content not included)... Normal [facility] Comment on above: Result Comment: Elec tronically Signed By: Hayes Moura MD\.br\Date and Time Signed: 12/27/21 15:46 EST\.br\Electronically Co-Signed By: Priyanka Mosley\.br\Date and Time Co-Signed: 12/26/21 22:49 EST RENETTAJosefa 01-02-2017 CNOV Office Visit (AGEXPHUD) CLAUSCUCO TEE ([id number]) 1995 FDate Time Provider Rpltxsnqqt51/22/17 2:30 PM FANNY GROSS (DESMOND) AGEXPHDANAY During [...] CLAVULANATE 125 MG TABLETKatsylvia Gross, CNPKatalin Renato, CLIP AND HANGER ATTACHER 01/02/2017 2:39 PM SignedBP 125/75 Pulse 79 [...] Yes. To reduce yoursymptoms, you can:?Take an jdzh-rvx-vsgwple pain reliever to reduce the pain?Rinse your [...] pulsating irrigation device (sample brand names: Grossan HydroPulse,WaterpiD and K interprises Sinusense Water Pulsator) ? These are battery-powered [...] 4 - HivesDate Reviewed: 01/02/2017Reviewed by: Fanny ([facility]) Renato - Fully AssessedReason for Visit: Sinus [...] reduce your symptoms, you can: ?Take an adeq-qkf-lnxvspl pain reliever to reduce the pain ?Rinse [...] with your doctor This topic retrieved from [facility] Patient education: Rinsing out your nose [...] ?A pulsating irrigation device (sample brand names: Scrip-t HydroPulse, eOriginal Sinusense Water Pulsator) ? These are battery-powered [...] out your nose. This topic retrieved from [employer] ordered this encounter Disp Refills Start End AMOXICILLIN 875 MG-POTASSIUM CLAVULA* 20 t* 0 01/02/2017 01/12/2017 Route: ORAL Sig: Take 1 tablet by mouth every 12 hours for 10 days.Disposition: Return if symptoms worsen or fail to improve.Follow-up and Disposition History RecordedEncounter Number: [id number] Status:Closed by FANNY GROSS CNP on 01/02/17 [facility] PROGRESSon 01-02-2017 PROGRESS HNO ID: [id number] thor: Fanny (Desmond) Arleyervice: (none)Author Type: Nurse [...] worsen.- AMOXICILLIN 875 MG-POTASSIUM CLAVULANATE 125 MG TABLETFnany Gross CNP [facility] CNOVon 11-12-2016 CNOV Office Visit (AGEXPHUD) CUCO DEVLIN ([id number]) 1995 FDate Time Provider Dvbfchyzxx85/2/17 8:15 AM FANNY GROSS (DESMOND) AGEXPHUD During [...] too much?Breathing in harsh chemicals, such as mud cleaner operator or gasoline?Drinking too much alcohol or smoking [...] Other causes of laryngitis are treated on pyiid-lb-ppus basis.-Voice rest is used for acute laryngitis, [...] Laryngitis, acute [J04.0]Order(s):ALERE STREP A TEST (AG) [7187044] Order #: [id number] THROAT CULTURE [SQTHRCUL] Order #: [id number] FUTURE lidocaine viscous (LIDOCAINE VISCOUS) 2 % [...] much ?Breathing in harsh chemicals, such as mud cleaner operator or gasoline ?Drinking too much alcohol or [...] causes of laryngitis are treated on a qdec-sz-nibs basis. -Voice rest is used for acute [...] to do for your baby. Retrieved from [employer] ordered this encounter Disp Refills Start End LIDOCAINE 2 % MUCOSAL SOLUTION 100 * 0 11/12/2016 Route: ORAL Sig: Take 5 mL by mouth four times daily as needed for Pain (swish and spit, do NOT swallow).Disposition: Return if symptoms worsen or fail to improve.Follow-up and Disposition History RecordedEncounter Number: [id number] Status:Closed by FANNY GROSS CNP on 11/12/16 [facility] PROGRESSon 11-12-2016 PROGRESS HNO ID: [id number] thor: Fanny (Desmond) Arleyervice: (none)Author Type: Nurse [...] ICD10: J04.0- Written educational material givenDESMOND Higginbotham [facility] Throat Cultureon 11-12-2016 Throat Culture Test performed at [facility] No group A beta streptococci cultured. Normal [facility] Comment on above: Performed By: #### C THRT ####[facility] [place], [place] [address] Vital Signs Date Time Vital Sign Value [...] 12-26-2021 13:47-0500 Blood Pressure Location Hayes Gudimella [facility] 12-26-2021 13:47-0500 Body temperature 96.8 [degF] Hayes Gudimella [facility] 12-26-2021 13:47-0500 Diastolic blood pressure 72 mm[Hg] Hayes Gudimella [facility] 12-26-2021 13:47-0500 Heart rate 67 /min Hayes Gudimella [facility] 12-26-2021 13:47-0500 Respiratory rate 16 /min Hayes Gudimella [facility] 12-26-2021 13:47-0500 SaO2% (BldA) [Mass fraction] 98 % Hayes Gudimella [facility] 12-26-2021 13:47-0500 Systolic blood pressure 112 mm[Hg] Hayes Moura [facility] Encounters Encounter Date Encounter Type Care [...] Emergency department patient visit Gorge Castro [facility] Start: 05-14-2022 End: 05-14-2022 ambulatory PRETTY VIVAS . Facility: Start: 12-26-2021 End: 12-27-2021 ambulatory MD Hayes Moura [facility] Start: 12-26-2021 End: 12-26-2021 Lab Drop off Hayes Moura [facility] Start: 12-26-2021 End: 12-26-2021 Patient encounter procedure Hayes Moura [facility] Start: 11-12-2016 End: 11-13-2016 Ambulatory FANNY (CLIP AND HANGER ATTACHER) [facility] Start: 11-12-2016 End: 11-12-2016 Ambulatory FANNY (DESMOND) [facility] Procedures Date Procedure Procedure Detail Performing Clinician Start: 03-14-2023 Urnls dip stick/tabl et rgnt non-auto w/o micrscp Cheyenne Bj DO Work Phone: Start: 02-11-1998 Adenoid excision Hayes Gudimella Plan of Treatment Date Care Activity Detail Author Start: 04-04-2023 End: 04-04-2023 Patient encounter procedure 04/04/2023 9:10 AM EST Routine [facility] [address] [place] [address] Pretty Vivas PA [address] [place], [place] [id number] [facility] Start: 10-12-2022 Influenza vaccination Influenza Vacc ine (#1) [facility] Immunizations Immunization Date Immunization Notes Care Provider Fa cility 04-16-2020 SARS-CoV-2 (COVID-19 ) mRNA-1273 vaccine Hayes Gudimella [facility] 01-12-2020 influenza virus vaccine, unspecified formulation Cheyenne Bj DO Work Phone: [facility] 11-16-2019 influenza, injectable, quadrivalent, contains preservative Hayes Gudimella [facility] 08-28-2019 tetanus toxoid, reduced diphtheria toxoid, and acellular pertussis vaccine, adsorbed Hayes Gudimella [facility] NEGATED: Highlighted row has not occurred!12-26-2021 influenza virus vaccine, unspecified formulation Hayes Gudimella [facility] Payers Date Payer Category Payer Unknown BCBS BCBS xxxxxx [id number] 2021-Present [phone] [address] [place] [address] [id number] 1993 Unknown [id number] 2.16.840.1.185169.3.579.2.593 1993 Unknown [id number] 2.16.840.1.886630.3.579.2.727 1993 Unknown [id number] 2.16.840.1.680736.3.579.2.727 1993 Unknown [id number] 2.16.840.1.018589.3.579.2.727 1993 Unknown [id number] 2.16.840.1.287345.3.579.2.727 1993 Unknown [id number] 2.16.840.1.717315.3.579.2.1259 1993 Unknown [id number] 2.16.840.1.123295.3.579.2.1259 1993 Unknown [id number] 2.16.840.1.947258.3.579.2.1259 1993 Unknown [id number] 2.16.840.1.238969.3.579.2.1259 1993 Unknown [id number] 2.16.840.1.801743.3.579.2.1259 1993 Unknown [id number] 2.16.840.1.009049.3.579.2.1259 1993 Unknown [id number] 2.16.840.1.290304.3.579.2.1259 1959 Unknown [id number] Unknown [id number] Social History Date Type Detail Facility Start: 12-26-2021 Tobacco smoking status Ex-smoker (finding) [facility] Comment on above: denies denies Tobacco smoking status Never [facility] Comment on above: denies denies Sex Assigned At Female [facility] Tobacco smoking status NHIS Tobacco smoking consumption unknown [facility] Start: 10-05-2022 [facility] Start: 1995 Sex Assigned At Not on file [facility] Functional Status Date Assessment Result Facility 12-26-2021 Functional Status N/A [facility] History of Present illness Narrative 03-14-2023 [...] nursing note reviewed. Exam conducted with a bindery machine setter present. Vitals: Estimated body mass [...] Locations R1: This test was performed at: [facility], [address] [place] [address], [facility] , , [facility] Comment on above: Performed By: #### [id number] #### [facility] [address] [place] [id number] Clinical Note 12-29-2021 Note Date & Type [...] Locations R1: This test was performed at: [facility], [address] [place] [address], [id number] , , [facility] Comment on above: Performed By: #### [id number] #### [facility] [address] [place] [id number] Evaluation + Plan note 12-26-2021 Note Date & Type Note Facility 12-26-2021 Evaluation + Plan note Diagnostic Tests PendingFluid Culture 12/26/21 [facility] Evaluation + Plan note Note Date & Type Note Facility Evaluation + Plan note No data available for this section [facility] Evaluation note Note Date & Type Note Facility Evaluation note Diagnosis Second trimester state, incidental documented in this encounter [facility] Discharge instructions Note Date & Type Note Facility Hospital Discharge instructions No data available for this section [facility] Progress note Note Date & Type Note Facility Progress note No data available for this section [facility] Summary Purpose Family History No Family History Records FoundNo Family History Records FoundNo Family History Records FoundNo Family History Records FoundNo Family History Records Found Advance Directives No Advanced Directives Records FoundNo Advanced Directives Records FoundNo Advanced Directives Records FoundNo Advanced Directives Records FoundNo Advanced Directives Records Found Additional Source Comments INFORMATION SOURCE (unrecogn ized section and content) DATE CREATED AUTHOR 08/06/2017 [facility] DATE CREATED AUTHOR AUTHOR'S ORGANIZ ATION 08/17/2017 [facility] DATE CREATED AUTHOR AUTHOR'S ORGANIZ ATION 05/21/2022 [facility] DATE CREATED AUTHOR AUTHOR'S ORGANIZ ATION 11/16/2022 [facility] DATE CREATED AUTHOR AUTHOR'S ORGANIZ ATION 05/17/2023 [facility] EPIC Patient Care team informatio n (unrecognized section and content) 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 [employer] provides no warranty or guarantee of the accuracy or completeness of information in this document.
[2023-05-24 13:14] VITALS: BP 122/75; PULSE 86
== END 2023-05-24 13:40 | disposition home or self-care (01) ==
LOC: FBCO 08:42 → FBC 13:09
PROVIDERS: Visit Provider Obstetrics & Gynecology
DX: O36.63X0 Maternal care for excessive fetal growth, third trimester, not applicable or unspecified (principal)
CPT/HCPCS: 59025

== ENCOUNTER 2023-05-28 07:47 | Outpatient (OUT) | payer BC, SELFPAY ==
--- OUTSIDE RECORDS SUMMARY | 2023-05-28 07:50 | XMS_ITS | CCD ---
Author Organization [facility] Care Team Providers Care Mine Analyst Name Role Phone MOSDARLINE FANNY (WEB EDITOR) Unavailable Unavailab le MOSNEAG, FANNY (WEB EDITOR) Unavailable Unavailab le IMCA Unavailable Unavailable RENATO, FANNY E Unavailable Unavailable Sherri CHEUNG Primary Care Physician PRETTY MCGRAW Admitting Unavailable PRETTY MCGRAW Attending Unavailable [facility] Ferrari Primary [facility] Unavailable PRETTY MCGRAW [...] adverse reactions to drug (disorder) 7 AOF [facility] Other [place] Repository (7 sources) Sulfonamides (Antibiotic); Translations: [sulfa drugs] Drug allergy [facility] (1 source) Sulfonamides (Antibiotic) Drug allergy (disorder) [facility] (1 source) Sulfonamides (Antibiotic) Drug Allergy 3 Unknown [facility] Medications Current Medications Medication Drug Class(es) Dates Sig (Normalized) Sig (Original) clotrimazole 10 mg/ml topical cream (6 sources) Azole Antifungal Start: 12-26-2021 clotrimazole Top 1% Crm 1 lenin, Topical, BID, 24 gram, Refill(s) 0, [id number], 175, cm, 12/26/21 13:50:00 EST, Height/Length Dosing, [...] UA Negative Negative - 4(70) +++ mg/dL [facility] Work Phone: Blood, UA Negative Negative - 50 Jarrett/mcL [facility] Work Phone: Clarity, UA Clear [facility] Work Phone: Color, UA Yellow [facility] Work Phone: Glucose, UA Positive Negative - 1999(110) ++++ mg/dL [facility] Work Phone: Comment on above: 100 Interpretation and review of laboratory results Abnormal [facility] Work Phone: Ketones, UA Negative Negative - 160(16) ++++ mg/dL [facility] Work Phone: Leukocytes, UA Moderate Negative - 500+++ Brooke/mcL [facility] Work Phone: Nitrite, UA Negative Negative - Positive [facility] Work Phone: pH, UA 7.0 5 - 9 [facility] Work Phone: Protein, UA Negative Negative - 2000(20) ++++ mg/dL [facility] Work Phone: Spec Grav, UA 1.010 1 - 1.03 [facility] Work Phone: Urobilinogen, UA 0.2 0.2 - 12 mg/dL [facility] Work Phone: [facility] Work Phone: ED Note-Physicianon 10-01-20 23 [...] day(s), # 14 cap(s), Refills(s) 0, Pharmacy: [id number], 173, cm, 11/04/22 21:16:00 EDT, Height/Length Dosing, 90.6, kg, 11/04/22 21:16:00 EDT, Weight Dosing Disposition Plan Patient Discharge Condition Stable Discharge Disposition To home Discharge Prescription List Prescriptions cephalexin 500 mg Cap, 500 mg= 1 cap(s), Oral, q12hr Follow-up With When Contact Information Sherri CHEUNG In 3 days 11/07/2022 EDT 24 [facility] [address] [place] [id number]- Business (1) Additional Instructions: Call the office [...] seen and evaluated by the physician assistant professor surgical technology. Attending physician was present in the emergency department and supervised care. This visit was performed by both the physician and an APC. I performed all aspects of the MDM as documented. This report was transcribed using voice recognition software. Every effort was made to ensure accuracy, however, inadvertently computerized functional architect mistakes may be present. Appropriate healthcare PPE was used in evaluating this patient. The patient was placed in a mask. The healthcare provider was wearing mask, gloves, and util (more content not included)... Normal [facility] Comment on above: Result Comment: Elec tronically Signed By: Bud Parker PA-C\.br\Date and Time Signed: 11/04/22 22:25 EDT\.br\Electronically Co-Signed By: Gorge Castro MD\.br\Date and Time Co-Signed: 11/11/22 20:46 EDT Discharge Instructionson Discharge Instructions [id number]:12 7 Normal [facility] ED Clinical Summaryon 2022 ED Clinical Summary [place] [id number] ED Clinical Summary Person Information Name: CUCO CARDENAS [facility] Age: 27 Years : 1995 Sex: Female Language: [place] Islander PCP: Sherri CHEUNG MD Marital Status: Single [...] 11/04/2022 22:37:58 11/04/2022 22:37:58 11/04/2022 22:37:58 ADDRESS: [address] [place] [id number] PHYS DOC NOTES: MEDICAL INFORMATION: Prescriptions Given: New Medications [id number], [address] [place], [place] [id number], [phone] cephalexin (cephalexin 500 mg Cap) 1 Capsules [...] Follow up: With: Address: When: Sherri CHEUNG [address] [place], [place] [address] [address], [place] [address] Business (1) In 3 days 11/07/2022 Comments: [...] or worsening symptoms. DIAGNOSIS: Fingertip avulsion Normal [facility] ED Patient Education Noteon 11-05-2022 ED [...] even if your condition improves. ? Take trdy-dlh-szxocjo and prescription medicines only as told by [...] and water are not available, use hand process development engineer. ? Change your dressing as told by [...] foot a (more content not included)... Normal [facility] ED Patient Summaryon 023 ED Patient Summary (Inserted Image. Marylu ble to display) [place] [id number] Patient Discharge Instructions Person Information Name: CUCO CARDENAS Age: 27 Years Arrival Date: 11/04/2022 21:10:12 Discharge Diagnosis: Fingertip avulsion Primary Care Physician: JONATAN STEINBERG, Sherri Milligan Provider Information Primary Provider: Advanced Amplifier Mechanic:Bud Parker PA-C The exam and treatment you received in the Emergency Department were for an urgent problem and are not intended as complete care. It is important that you follow up with a doctor, nurse practitioner, or physician?s assistant professor surgical technology for ongoing care. If your symptoms become worse or you do not improve as expected and you are unable to reach your usual health care provider, you should return to the Emergency Department. We are available 24 hours a day. CUCO CARDENAS has been given the following list of patient education materials, prescriptions and follow-up instructions: Follow-up Instructions: With: Address: When: Sherri CHEUNG [address] [place], [place] [address], [place] [address] Business (1) In 3 days 11/07/2022 Comments: [...] opioids can be used to help relieve mfbjmjxn-he-cnofva pain and are often prescribed following a [...] ? Safely (more content not included)... Normal [facility] Consent for Treatmenton 10-13 Consent for Treatment [id number]:127 Normal [facility] PAP ACOG PANEL 2: 21 to 29on 05-21-2022 . . Normal [facility] Comment on above: Performed By: #### 4 [id number] #### [facility] [address] [place] [address] Dr. Jewels Looney Age Gdln ACOG Testing - [facility] Comment on above: Performed By: #### 4 [id number] #### [facility] [address] [place] [address] Dr. Jewels Looney DIAGNOSIS: Comment Normal [facility] Comment on above: Result Comment: NEGA TIVE FOR INTRAEPITHELIAL LESION OR MALIGNANCY. Performed By: #### 4 [id number] #### [facility] [address] [place] [address] Dr. Jewels Looney Methodology: Comment Normal [facility] Comment on above: Result Comment: This liquid based ThinPrep(R) pap test was screened with the use of an image guided system. Performed By: #### 4 [id number] #### [facility] [address] [place] [address] Dr. Jewels Looney Note: Comment Normal [facility] Comment on above: Result Comment: The Pap smear is a screening test designed to aid in the detection of premalignant and malignant conditions of the uterine cervix. It is not a diagnostic procedure and should not be used as the sole means of detecting cervical cancer. Both false-positive and false-negative reports do occur. . Performed By: #### 4 [id number] #### [facility] [address] [place] [address] Dr. Jewels Looney Performed by: Comment Normal [facility] Comment on above: Result Comment: Rosita aHines, Ophthalmic Assistant (ASCP) Performed By: #### 4 [id number] #### [facility] [address] [place] [address] Dr. Jewels Looney Reflex Criteria: Comment Normal [facility] Comment on above: Result Comment: The HPV DNA reflex criteria were not met with this specimen result therefore, no HPV testing was performed. . Performed By: #### 4 [id number] #### [facility] [address] [place] [address] Dr. Jewels Looney Specimen adequacy: Comment Normal [facility] Comment on above: Result Comment: Sati sfactory for evaluation. Endocervical and/or squamous metaplastic cells (endocervical component) are present. Performed By: #### 4 [id number] #### [facility] [address] [place] [address] [address] Jewels Looney Reminderson 01-19-2022 Reminders - From: Hayes Moura MD To: [facility] - Clinical; Sent: 01/16/2022 15:19:01 [...] and declines any questions or concerns. Normal [facility] Coding Summary.on 12-31-2021 Coding Summary. CD:[id number] Gh0bWw +PGhlYWQ+ZH4IKOXuQ59fyFFdq T0RI6fVHP0HJCVUEFOTOK8DZD1 drXN5NLnrX9YfsxLz OyplhRYuSL42CKb9VIF9zOqrVA donH7ylFHwT0w4ZmLpKM05xH39 DStoCQLbNsF3VuMofpswyKZf U5viVoMrmAAoDcm+PHRhYmxlIH kuIXAmOXgcGZExTjWgxCpdWT8c Nw1xGIMlOHMttRnxbQBuThGf g5rtOLSvRMbiYI2naDmbH0VgaX A4LDNjz9c8Tk42zBI+PHRkIHN0 fXviTDsfu225XxQqo4bpDSX8 bVUlKPkjVCU6I91uo6H4PQGbOR PoKJZ8wLJ1aR2lcIfxlhxvG2Ej nHSxAeH9JRN5oTRykO2guAsi wztdxY7qNxn+Y15MBU6WGXZCZB 3RYwa0N5SwIzmnbZK+BQ32BIVt VV07aQLnbICzo4sfmSp9MyKi PTKbFFW7tTtnFTuvh1WcFEQhV2 1elYGmp3S8KNMsiPcqjDRaUbZb xTV3kA1xHEbqkegxn1xdgeyl Ntywe1dtva19eO10X61qMLlhER YpPEL9XJQwKMFemTqqdz0bvF9f Ii8+GSqvs3nxx2oeaEu8WmCn BHMkjxBwlNxaWJH1n2NyKj03X3 KslOlrx3CdWeo6dr55lEDkd0A2 uQO0MGczCHKkiQ7tMOczPuU2 HUCaDlFlhF15aDKlXJkvNl0ayT kjzXmuUV8fCGWrcultBCFwdR2d QMBeiUNkbOkaQB4sYKNkacje m113YpEgOPX7TSEjkSKsN8WbgK 8xHwJbNSRkVTKkZ7DxrGZyWCiw X277OYflKvS3WHZiufPjO8Ov OXVpgLtfEoB5z6M7Lo9Ap0Jfst bfCZO9DBdaANOhSqMkQtTtWiG5 I8CxQpk6KWLscTnmTH3pD6Vr FIKxqlifgfvzyBR7JDNnKWSzsD 57tYHxPLdzTe8rf1U7g438XXBv MXLjmW01Qk4ctHzeVNOsoOZI tB8zpunqw8rwgltpCaQlANSlHQ u9IUw3EVOzaXkyDiBfIOY9HbJ4 MYM5iBKayV9lyGkzlbljvH5m Oyc+T36nnM2hHGS5NBV2djreVP YzooDaPX24MN59S7KzBscdmMMd bGU+VEZqnoTeiJfoWZ3uZxEz e5rvc6UzCZdkR8MrDALiRUxaWk s4SLIkJWX1iNR3lW7iODByJQhf s9G1dZL6J6YrymFmue4hu3cr RJTtKKqtE57crYYnp7S3RLDpqF W9UCDofLvoJhYhhO92Jgf+PGNv zSkrb8ErFxefy5hus7eeaCa9 IrSpFXSmtjOzwLycFHR2u8JfGq 66M38qWBdaRFWrCPTbHOMtRYRl iLjihc6piJ6sZp5+PGNvbCB3 jNL5xB1tDXBgRhC4UZctD957Vx XlfMEiGuiuk3bub1uzhLk0ZxOp CGJbuqCzoLuxFTO9p5AdYh99 I95uIWxjMJQgUEPyPGGtKDHqxZ swwb4xlS7kBt7+PZ0fe3ynyk71 yA41iDP+AZVmGNK4rRjpYKvx XEGwdG9mZQbrRpQ1RQJrAhGkmQ 62nHEaIPcrZk5dtGsubOefCD5t PSKjbzpww563KpLfs2rvSPTx kOCoIDbzMJM9L90ey4P4YHAlWW PpFCQ3cWC8rB8tdAxigymtxMOc cVhhqrNsxNdtGGakSLdxY737 IHRvcDsnPlBhdGllbnQgTmFtZT w3H9AoClu7PCJwyDtlTG0ppQRn UTljWq7mrJjsnMbwWT1xPYKs vftmb411QdZif4hcPMBwaYQfYF ifBVL5R97wb8N0NOTlAQDhWPR1 gPV8fV1rkVjbjivqnLUqxBik mrZduEoaFZqpQEfwQ717NVNltU keDwBkxgWuMHXpbLS8HK57JW86 oVMqt9I4tZJ5H0UzJETmqtzh jqayiZP4SYCiVZXmwI34Jf7kwF gqQw2sGIIsHZK2AVEmwUWwL6Ct nQ7tEnZlJUZpHVTnO1NoqTFc JGovL216KVnyCvC8HANblwObX7 FnVAPngIxeJdW6d0M7To1UK3H0 QB25WQ66fBLph2W4qIR8J6Ly RXSlustvfpaaxOR2WNIbUAUzbB 90Ch8ftSmtKe4gWJHnPEJ9UZQl oYPzE0LzqR8vOiJlRBYrUKKt S0VhbRMxPCniL723JVzjDcT2RE KteaUuM7QbUCClaBwmKgZ8b3B6 Cg1RDOy2FL93GY06hHQym9U0 sGB8V8RiAFVvdxutvmjuiXD5LB WqZPNpzE55Zk8xiVjmXx2yJTUo WQF1AAPuxTWgH8OvvD7dVgZo FWPaROUpO9EupDQiSTztX725LA gdVeA6WIXvdcDyK2WpSSTgkSou IrW9b8J8Jt5PFNAiEI13CKF1 aKR8MP16QO65Q0XqBboclWAiyJ U+PHRhYmxlIHdpZHRoPScxMDAl VnJkeRghHC2oHe3yQZHfVWUs aQyzhIEcIaMdh5jwDUZaQLocQU 4rlZnaK0VfmAQ0MECfr5w9Hh51 R26cW6VwjIE+GUYihEZ8eAA0 tE0vTnSxQiG7NHslP789NiBxhH PrZqhnj2rde7lywDg8QdF8EXRq isBurYttMTS5n3UlEs83C99s IHdpZHRoPSIxNSUiIHZhbGlnbj 2pwE5hZy6+KSQgcWC5wBQ7kF7z UuMrOmU1MLlwW909UpWxuSDi Qceln4wfb8dlzBu4YnWmHDGbko PxjRqgEHG4p9CvTd31A0PbuTew q3FiEaa3bs83sFCfg7C1mPT2 S3HnCLPvzeelxJOfrBbrSE1pWC JbqwucOAUrlR7sRTRcU9n9AyKn QjE8AGfhM8PbgwU8ZKSmuKAy QEypDZA6A39af7A5JSZxPTZlIS T0jMT7hI2beDwcxwjelSWgaAuu egCpaPsmDZjaICbpB543HFIz vAsiFFVqxE4jFSNxnAQynXjdXO 3aRIGehfibSlRWEFAAL57KRURU L9EGSF2cYfbswHI+PHRkIHN0 lGruHYswLAPwbJ8xTRDlH3y4Vu AnLcJ4RJeeY8UpOYGwhxkkMo65 vP5oFmMiLfX7HVcgO6VkkmJ0 QIYmzJEoXHggFAT4O37na3T2XY TvTFVuZTF9bVH1sG3xqKmoklfd bGVmdDsgdmVydGljYWwtYWxp I391USZanQicHsZ4UzOgUxZ9AI R9N4DkFvt0NSEidElyRX1bxARe TRxtBp3asHtrjSwcTM1eNCWi pqwuPHNxoF6eZLMbwXIppIpaTY 8pHDSzclwoq895HrStACU8INYq aGNeZ5OhvH7iGrYwCBChQPGr N8QwdDMoBYcrZ337KMypOzA1NG JjpsUiL8FwOGOwxKmuGeK8v7J7 Sa4xGCHLMJOtegzbrOX+PHRk VNL7pYlvHFpvHQBlyM5bQZUlQ2 x1UmXjLrT0CHxtH3KxDAZoqjni Yt47vG2nYkXnKbO7HRtaJ9Ct miK7UKYvbVQgXPxnGNS5H20sk6 S4LTCgVZMbCRO7vQT4yJ1fwCpf bjogbGVmdDsgdmVydGljYWwt FPxnB703FAJbiPxyRgXmdGLuBL wvdGQ+QQSkBMJ5jXjsVEpeKRZn cT9hQKAeP3v2MqGhOlQ1ATxb A8LmKXSdggttSp43rV8jTyRvMc J3NQpoR0AwfhK0WJKagEVkTAya UQH9C84lc7S8QMEbQTZdXAJ1 tVK1eR7grXlqzmddtVGxfCqjvh LdoZcoXFbmBChrO639TFSmxDgy GktsXrFExd8lZJ0gIyfhiHN+ DQ09vw23J0LwOvlnAsc5PASyBY S0uZG4zV7mYXLyKYngb2R6mEL8 O9YxckEjdf9pq7jsNOGdQRai K37gaEEzg7F1RBCmkRK0SHSxpE edKbKwcG94Zhw+MZNcmZffp9Yd Khtep1dhp6ovlOe8JxVrIXBd pdPhtOwwUUA7b0VwUj28G35jXP uqYQIlINLwZNVxOHMnhGmnqz0e mJ3iPq4+KGMxwMY5nDF9uJ7p DxQwHhP7SYafG741SwGyfDFnOi upi8kwx2ncsHp3KtOhNYFvcjJo wWtpJPN7h7GlRb94S9OakDnw j5QcEve2id81aQNut2L9nXJ4L5 RoVJDvdpgqpLAekSjhXR6oXAGf vhjrFIGxmL5yPMOtA4n4QfYz NzZ9FPcbI2HygcF0CRIbnONaKY AjwHHWtS1boaefl9fapbbbMoVw NMYfHMy3ICr0GZZqlNjtArYv WZI1EwK3DDT3zIJxhF9nwHfhys dzgV5zMvb+GAc6h2tezDTdES2t tWI4HS84BI80gEDof2Z8bEZ6 U1EjJNRityruwepapGT8NACxMM JpxF41Cf7wcNgeFu5cINGpAHL6 OSEmwACkT2DjtE3dAnWfEJOv IRUeG1AhdDXzMEioZ874XOziVq Y9QDDjayXnQ9KhRYUylBgfKcB0 k7D2Gw2FXH70MB29BB36mOYo j8D1fYM9J6UvHWZrszktwegcvV K9JFMeOLHliN83Pb7exKqbKv4b MWFjYKI6FIKfbHEgV3YikW9w OoAnRJXbXLCeX7YagPFgXUmyD3 44FAdmVlX7LQHjjwDnI3FzIMIh sNnfXaY3v9Q8Gu8KXg31CA93 QU47zMYvz6Z1rNT5Y4LvVXBmth twyaompAE6STJwCNUrlV30Os0r xFspMa2hNMAtAEG1NNMywUOq S4EuuT4dDuSxPYYeGXMeX8MmuW MxFMtsK070KBtxFhZ9FRGenlKg V2WsYVTtvQjbGgE6p5U4Gt9V ONrjaiw5S8GxMmrbpMV+PC90YW SwAB50kAWoaOYmc7rlrBe4MqPd EZDzDCH7nXpaMLdlt4MnXLCd Y29s (more content not included)... Normal [facility] Family Medicine Office/Clini c Noteon 12-27-2021 [...] Tobar to record this visit. JEAN CARLOS loan documentation specialist and provider reviewed before signing. Completed by: Rosa Isela Rouse/Angeli Ignacio. Pated by Priyanka Mosley, Quality Etl Consultant. Follow-up No qualifying data available Problem [...] acel/tetanus ad (more content not included)... Normal [facility] Comment on above: Result Comment: Elec tronically Signed By: Hayes Moura MD\.br\Date and Time Signed: 12/27/21 15:46 EST\.br\Electronically Co-Signed By: Priyanka Mosley\.br\Date and Time Co-Signed: 12/26/21 22:49 EST RENETTAJosefa 01-02-2017 CNOV Office Visit (AGEXPHUD) CLAUSCUCO TEE ([id number]) 1995 FDate Time Provider Sucnluilxc79/22/17 2:30 PM FANNY GROSS (DESMOND) AGEXPHDANAY During [...] CLAVULANATE 125 MG TABLETKatsylvia Gross, CNPKatalin Renato, WEB EDITOR 01/02/2017 2:39 PM SignedBP 125/75 Pulse 79 [...] Yes. To reduce yoursymptoms, you can:?Take an eecy-ddv-ahebjtz pain reliever to reduce the pain?Rinse your [...] examples include:?A squeeze bottle (sample brand name: Fol Med Sinus Rinse)?A neti pot (sample brand name: Flo Med NasaFlo Neti Pot) ? This is a smallpot with a long spout, similar to a teapot .?A nasal irrigation syringe (sample brand name: Nasaline) ? Use a 60 cc (2ounce) syringe, not a bulb syringe for a baby.?A pulsating irrigation device (sample brand names: Grossan HydroPulse,Waterpilark Sinusense Water Pulsator) ? These are battery-powered [...] 4 - HivesDate Reviewed: 01/02/2017Reviewed by: Fanny ([facility]) Renato - Fully AssessedReason for [...] reduce your symptoms, you can: ?Take an omih-rvb-mqacyao pain reliever to reduce the pain ?Rinse [...] with your doctor This topic retrieved from [facility] Patient education: Rinsing out your nose [...] ?A pulsating irrigation device (sample brand names: Or[employer] Media HydroPulse, Folloyu Sinusense Water Pulsator) ? These are battery-powered [...] out your nose. This topic retrieved from [employer] ordered this encounter Disp Refills Start End AMOXICILLIN 875 MG-POTASSIUM CLAVULA* 20 t* 0 01/02/2017 01/12/2017 Route: ORAL Sig: Take 1 tablet by mouth every 12 hours for 10 days.Disposition: Return if symptoms worsen or fail to improve.Follow-up and Disposition History RecordedEncounter Number: [id number] Status:Closed by FANNY GROSS CNP on 01/02/17 [facility] PROGRESSon 01-02-2017 PROGRESS HNO ID: [id number] thor: Fanny (Desmond) Arleyervice: (none)Author Type: Nurse [...] 11-12-2016 CNOV Office Visit (AGEXPHUD) CUCO DEVLIN ([id number]) 1995 FDate Time Provider Ibpexidkmw40/2/17 8:15 AM FANNY GROSS (DESMOND) AGEXPHUD During [...] too much?Breathing in harsh chemicals, such as can worker or gasoline?Drinking too much alcohol or smoking [...] Other causes of laryngitis are treated on ofidm-bi-lgny basis.-Voice rest is used for acute laryngitis, [...] Laryngitis, acute [J04.0]Order(s):ALERE STREP A TEST (AG) [6704655] Order #: [id number] THROAT CULTURE [SQTHRCUL] Order #: [id number] FUTURE lidocaine viscous (LIDOCAINE VISCOUS) 2 % [...] much ?Breathing in harsh chemicals, such as can worker or gasoline ?Drinking too much alcohol or [...] causes of laryngitis are treated on a ssny-zi-upjn basis. -Voice rest is used for acute [...] to do for your baby. Retrieved from [employer] ordered this encounter Disp Refills Start End LIDOCAINE 2 % MUCOSAL SOLUTION 100 * 0 11/12/2016 Route: ORAL Sig: Take 5 mL by mouth four times daily as needed for Pain (swish and spit, do NOT swallow).Disposition: Return if symptoms worsen or fail to improve.Follow-up and Disposition History RecordedEncounter Number: [id number] Status:Closed by FANNY GROSS CNP on 11/12/16 [facility] PROGRESSon 11-12-2016 PROGRESS HNO ID: [id number] thor: Fanny (Desmond) Arleyervice: (none)Author Type: Nurse [...] Written educational material givenDESMOND Higginbotham [facility] Throat Cultureon 11-12-2016 Throat Culture Test performed at [facility] No group A beta streptococci cultured. Normal [facility] Comment on above: Performed By: #### C THRT ####[facility] [place], [place] [address] Vital Signs Date Time Vital Sign Value Performing Clinician Facility 03-14-2023 09:31-0500 Body mass index (BMI) [Ratio] 31.17 kg/m2 Cheyenne Bj DO Work Phone: [facility] 03-14-2023 09:31-0500 Body weight 92.99 kg Cheyenne Bj DO Work Phone: [facility] 03-14-2023 09:31-0500 Diastolic blood pressure 66 mm[Hg] Cheyenne Bj DO Work Phone: [facility] 03-14-2023 09:31-0500 Systolic blood pressure 130 mm[Hg] Cheyenne Bj DO Work Phone: [facility] 12-26-2021 13:47-0500 Blood Pressure Location [...] Systolic blood pressure 112 mm[Hg] Hayes Moura [facility] Encounters Encounter Date Encounter [...] 11-05-2022 Emergency department patient visit Gorge Castro Facility:[facility] Start: 05-14-2022 End: 05-14-2022 ambulatory PRETTY VIVAS . Facility: Start: 12-26-2021 End: 12-27-2021 ambulatory MD Hayes Moura Facility:[facility] Start: 12-26-2021 End: 12-26-2021 Lab Drop off Hayes Moura [facility] Start: 12-26-2021 End: 12-26-2021 Patient encounter procedure Hayes Moura [facility] Start: 11-12-2016 End: 11-13-2016 Ambulatory FANNY (WEB EDITOR) [facility] Start: 11-12-2016 End: 11-12-2016 Ambulatory FANNY (DESMOND) [facility] Procedures Date Procedure Procedure Detail Performing Clinician Start: 03-14-2023 Urnls dip stick/tabl et rgnt non-auto w/o micrscp Cheyenne Bj DO Work Phone: Start: 02-11-1998 Adenoid excision Hayes Gudimella Plan of Treatment Date Care Activity Detail Author Start: 04-04-2023 End: 04-04-2023 Patient encounter procedure 04/04/2023 9:10 AM EST Routine [facility] [address] [place] [address] Pretty Vivas PA [address] [place], [place] [id number] [facility] Start: 10-12-2022 Influenza vaccination Influenza Vacc ine (#1) [facility] Immunizations Immunization Date Immunization Notes Care Provider Fa cility 04-16-2020 SARS-CoV-2 (COVID-19 ) mRNA-1273 vaccine Hayes Gudimella [facility] 01-12-2020 influenza virus vaccine, unspecified formulation Cheyenne Bj DO Work Phone: [facility] 11-16-2019 influenza, injectable, quadrivalent, contains preservative Hayes Gudimella [facility] 08-28-2019 tetanus toxoid, reduced diphtheria toxoid, and acellular pertussis vaccine, adsorbed Hayes Gudimella [facility] NEGATED: Highlighted row has not occurred!12-26-2021 influenza virus vaccine, unspecified formulation Hayes Gudimella [facility] Payers Date Payer Category Payer Unknown BCBS BCBS [id number] 2021-Present [phone] [address] [place] [address] [id number] 1993 Unknown [id number] 2.16.840.1.556897.3.579.2.593 1993 Unknown [id number] 2.16.840.1.886578.3.579.2.727 1993 Unknown [id number] 2.16.840.1.416101.3.579.2.727 1993 Unknown [id number] 2.16.840.1.175896.3.579.2.727 1993 Unknown [id number] 2.16.840.1.879902.3.579.2.727 1993 Unknown [id number] 2.16.840.1.414130.3.579.2.1259 1993 Unknown [id number] 2.16.840.1.116643.3.579.2.1259 1993 Unknown [id number] 2.16.840.1.460275.3.579.2.1259 1993 Unknown [id number] 2.16.840.1.619992.3.579.2.1259 1993 Unknown [id number] 2.16.840.1.234652.3.579.2.1259 1993 Unknown [id number] 2.16.840.1.557183.3.579.2.1259 1993 Unknown [id number] 2.16.840.1.846358.3.579.2.1259 1959 Unknown [id number] Unknown [id number] Social History Date Type Detail Facility Start: 12-26-2021 Tobacco smoking status Ex-smoker (finding) [facility] Comment on above: denies denies Tobacco smoking status Never [facility] Comment on above: denies denies Sex Assigned At Female [facility] Tobacco smoking status NHIS Tobacco smoking consumption unknown [facility] Start: 10-05-2022 [facility] Start: 1995 Sex Assigned At Not on file [facility] Functional Status Date Assessment Result Facility 12-26-2021 Functional Status N/A [facility] History of Present illness Narrative 03-14-2023 [...] nursing note reviewed. Exam conducted with a eye technician present. Vitals: Estimated body mass index is [...] Cheyenne Lorenzo DO documented in this encounter [facility] Clinical Note 01-19-2022 Note Date [...] test was performed at: [facility], [address] [place] [address], [facility] , , [facility] Comment on above: Performed By: #### [id number] #### [facility] [address] [place] [id number] Clinical Note 12-29-2021 Note Date & Type [...] Locations R1: This test was performed at: [facility], [address] [place] [address], [id number] , , [facility] Comment on above: Performed By: #### [id number] #### [facility] [address] [place] [id number] Evaluation + Plan note 12-26-2021 Note Date & Type Note Facility 12-26-2021 Evaluation + Plan note Diagnostic Tests PendingFluid Culture 12/26/21 [facility] Evaluation + Plan note Note Date & Type Note Facility Evaluation + Plan note No data available for this section [facility] Evaluation note Note Date & Type Note Facility Evaluation note Diagnosis Second trimester state, incidental documented in this encounter [facility] Discharge instructions Note Date [...] section and content) DATE CREATED AUTHOR 08/06/2017 [facility] DATE CREATED AUTHOR AUTHOR'S ORGANIZ ATION 08/17/2017 [facility] DATE CREATED AUTHOR AUTHOR'S ORGANIZ ATION 05/21/2022 [facility] DATE CREATED AUTHOR AUTHOR'S ORGANIZ ATION 11/16/2022 [facility] DATE CREATED AUTHOR AUTHOR'S ORGANIZ ATION 05/17/2023 [facility] EPIC Patient Care team informatio n (unrecognized section and content) 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 [employer] provides no warranty or guarantee of the accuracy or completeness of information in this document.
--- NOTE | 2023-05-28 18:56 | US_ITS ---
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 TECHNIQUE: Ultrasound biophysical profile was performed in the radiology department. FINDINGS: BREATHING MOVEMENTS: 2 GROSS BODY MOVEMENTS: 2 TONE: 2 QUALITATIVE AMNIOTIC FLUID VOLUME: 2 PRESENTATION: Cephalic HEART RATE: 144 H.B./min AMNIOTIC FLUID VOLUME: 14.8 cm GESTATIONAL AGE: 35 weeks 4 CONCLUSION: Total biophysical profile score: 8/8 Electronically authenticated by: STORM ROSE Date: 05/29/2023 07:17
[2023-05-28 19:24] VITALS: BP 130/75; PULSE 73; TEMP 36.4
== END 2023-05-28 20:20 | disposition home or self-care (01) ==
LOC: US 07:48 → FBC 18:53
PROVIDERS: Visit Provider Obstetrics & Gynecology
DX: O41.03X0 Oligohydramnios, third trimester, not applicable or unspecified (principal); Z3A.35 35 weeks gestation of pregnancy
CPT/HCPCS: 76818

== ENCOUNTER 2023-05-29 20:48 | Outpatient (REF) | payer BC, SELFPAY ==
--- OUTSIDE RECORDS SUMMARY | 2023-05-29 20:53 | XMS_ITS | CCD ---
Author Organization [facility] Care Team Providers Care Gas Meter Mechanic Name Role Phone MOSDARLINE FANNY ([employer]) Unavailable Unavailab le MOSNEAG, FANNY ([employer]) Unavailable Unavailab le IMCA Unavailable Unavailable RENATO, FANNY E Unavailable Unavailable Sherri CHEUNG Primary Care Physician PRETTY MCGRAW Admitting Unavailable PRETTY MCGRAW Attending [facility]available [facility] Ferrari Primary [facility] Unavailable PRETTY MCGRAW [...] adverse reactions to drug (disorder) 7 AOF [facility] Other [facility] Repository (7 sources) Sulfonamides (Antibiotic); Translations: [sulfa drugs] Drug allergy [facility] (1 source) Sulfonamides (Antibiotic) Drug allergy (disorder) [facility] Repository (1 source) Sulfonamides (Antibiotic) Drug Allergy 3 Unknown [facility] Medications Current Medications Medication Drug Class(es) Dates Sig (Normalized) Sig (Original) clotrimazole 10 mg/ml topical cream (6 sources) Azole Antifungal Start: 12-26-2021 clotrimazole Top 1% Crm 1 lenin, Topical, BID, 24 gram, Refill(s) 0, [id number], 175, cm, 12/26/21 13:50:00 EST, Height/Length Dosing, [...] UA Negative Negative - 4(70) +++ mg/dL [facility] Work Phone: Blood, UA Negative Negative - 50 Jarrett/mcL [facility] Work Phone: Clarity, UA Clear [facility] Work Phone: Color, UA Yellow [facility] Work Phone: Glucose, UA Positive Negative - 1999(110) ++++ mg/dL [facility] Work Phone: Comment on above: 100 Interpretation and review of laboratory results Abnormal [facility] Work Phone: Ketones, UA Negative Negative - 160(16) ++++ mg/dL [facility] Work Phone: Leukocytes, UA Moderate Negative - 500+++ Brooke/mcL [facility] Work Phone: Nitrite, UA Negative Negative - Positive [facility] Work Phone: pH, UA 7.0 5 - 9 [facility] Work Phone: Protein, UA Negative Negative - 2000(20) ++++ mg/dL [facility] Work Phone: Spec Grav, UA 1.010 1 - 1.03 [facility] Work Phone: Urobilinogen, UA 0.2 0.2 - 12 mg/dL [facility] Work Phone: [facility] Work Phone: ED Note-Physicianon 10-01-20 23 [...] day(s), # 14 cap(s), Refills(s) 0, Pharmacy: [id number], 173, cm, 11/04/22 21:16:00 EDT, Height/Length Dosing, 90.6, kg, 11/04/22 21:16:00 EDT, Weight Dosing Disposition Plan Patient Discharge Condition Stable Discharge Disposition To home Discharge Prescription List Prescriptions cephalexin 500 mg Cap, 500 mg= 1 cap(s), Oral, q12hr Follow-up With When Contact Information Sherri CHEUNG In 3 days 11/07/2022 EDT [address] [facility] [place] [phone] Business (1) Additional Instructions: Call the office [...] Patient seen and evaluated by the physician teacher assistant. Attending physician was present in the emergency department and supervised care. This visit was performed by both the physician and an APC. I performed all aspects of the MDM as documented. This report was transcribed using voice recognition software. Every effort was made to ensure accuracy, however, inadvertently computerized drawing kiln supervisor mistakes may be present. Appropriate healthcare PPE was used in evaluating this patient. The patient was placed in a mask. The healthcare provider was wearing mask, gloves, and util (more content not included)... Normal [facility] Comment on above: Result Comment: Elec tronically Signed By: Bud Parker PA-C\.br\Date and Time Signed: 11/04/22 22:25 EDT\.br\Electronically Co-Signed By: Gorge Castro MD\.br\Date and Time Co-Signed: 11/11/22 20:46 EDT Discharge Instructionson Discharge Instructions [id number]:[address] [facility] ED Clinical Summaryon 2022 ED Clinical Summary [place] [id number] ED Clinical Summary Person Information Name: CUCO CARDENAS Richelle/[facility] Age: 27 Years : 1995 Sex: Female Language: Qatari PCP: Sherri CHEUNG MD Marital Status: Single [...] 11/04/2022 22:37:58 11/04/2022 22:37:58 11/04/2022 22:37:58 ADDRESS: [address] [place] [phone] PHYS DOC NOTES: MEDICAL INFORMATION: Prescriptions Given: New Medications [id number], [address] [place], [place] [phone], [phone] cephalexin (cephalexin 500 mg Cap) 1 Capsules [...] Follow up: With: Address: When: Sherri CHEUNG [address] [place], [place] [address], [place] [address] Business (1) In 3 days 11/07/2022 Comments: [...] or worsening symptoms. DIAGNOSIS: Fingertip avulsion Normal [facility] ED Patient Education Noteon 11-05-2022 ED [...] even if your condition improves. ? Take tavs-egj-mbpcgea and prescription medicines only as told by [...] and water are not available, use hand linker up. ? Change your dressing as told by [...] foot a (more content not included)... Normal [facility] ED Patient Summaryon 023 ED Patient Summary (Inserted Image. Marylu ble to display) [place] [id number] Patient Discharge Instructions Person Information Name: CUCO CARDENAS Age: 27 Years Arrival Date: 11/04/2022 21:10:12 Discharge Diagnosis: Fingertip avulsion Primary Care Physician: JONATAN STEINBERG, Sherri Milligan Provider Information Primary Provider: Advanced Inspector And Clerk:Bud Parker PA-C The exam and treatment you received in the Emergency Department were for an urgent problem and are not intended as complete care. It is important that you follow up with a doctor, nurse practitioner, or physician?s teacher assistant for ongoing care. If your symptoms [...] Follow-up Instructions: With: Address: When: Sherri CHEUNG [address] [place], [place] [address], [place] [address] Business (1) In 3 days 11/07/2022 Comments: [...] opioids can be used to help relieve ywdicnne-my-wjqjmb pain and are often prescribed following a [...] ? Safely (more content not included)... Normal [facility] Consent for Treatmenton 10-13 Consent for Treatment [id number]:[address] [facility] PAP ACOG PANEL 2: 21 to 29on 05-21-2022 . . Normal [facility] Comment on above: Performed By: #### 4 [id number] #### [facility] [address] [place] [address] Dr. Jewels Looney Age Gdln ACOG Testing - [facility] Comment on above: Performed By: #### 4 [id number] #### [facility] [address] [place] [address] Dr. Jewels Looney DIAGNOSIS: Comment Normal [facility] Comment on above: Result Comment: NEGA TIVE FOR INTRAEPITHELIAL LESION OR MALIGNANCY. Performed By: #### 4 [id number] #### [facility] [address] [place] [address] Dr. Jewels Looney Methodology: Comment Normal [facility] Comment on above: Result Comment: This liquid based ThinPrep(R) pap test was screened with the use of an image guided system. Performed By: #### 4 [id number] #### [facility] [address] [place] [address] Dr. Jewels Looney Note: Comment Normal [facility] Comment on above: Result Comment: The Pap smear is a screening test designed to aid in the detection of premalignant and malignant conditions of the uterine cervix. It is not a diagnostic procedure and should not be used as the sole means of detecting cervical cancer. Both false-positive and false-negative reports do occur. . Performed By: #### 4 [id number] #### [facility] [address] [place] [address] Dr. Jewels Looney Performed by: Comment Normal [facility] Comment on above: Result Comment: Rosita Haines, Construction Rigger (ASCP) Performed By: #### 4 [id number] #### [facility] [address] [place] [address] Dr. Jewels Looney Reflex Criteria: Comment Normal [facility] Comment on above: Result Comment: The HPV DNA reflex criteria were not met with this specimen result therefore, no HPV testing was performed. . Performed By: #### 4 [id number] #### [facility] [address] [place] [address] Dr. Jewels Looney Specimen adequacy: Comment Normal [facility] Comment on above: Result Comment: Sati sfactory for evaluation. Endocervical and/or squamous metaplastic cells (endocervical component) are present. Performed By: #### 4 [id number] #### [facility] [address] [place] [address] [address] Jewels Looney Reminderson 01-19-2022 Reminders - [...] and declines any questions or concerns. Normal [facility] Coding Summary.on 12-31-2021 Coding Summary. CD:[id number] Gh0bWw +PGhlYWQ+MX7FIOTzK51nfPNax P5EM8iNHL0HJWJMUFIAVE7CUO5 ypAM9GFjoK3EusoLm QiyywIJpZG08PMv2FXH2gOjrGI hswK9ueIKjM0m2CaQiAS59sA07 MJuhVKKbZoV7ArJudstgmSYo L0dxXaDshDEcCvw+PHRhYmxlIH auMCUqJWjgHEBeZiPkjUcuLF3x Ae7jUOLoJHFmqWoolVJuJyDh u8kqDYNhLZwzXB8nsEybV9QofJ X7HYJgr3w0Mk23xGS+PHRkIHN0 dBpoXEcgw983TkZjh2liZDJ6 cBZpEGnnWSO7A09zl9O8WXHfHO YwHJC0uFH9aO4nlRfqejfjM6Jf pKIjWaA6STP4oNYnaB5lwQlq wxlrlC9hZbo+O29SPG8JLLYPCD 6LAnl6R3FyXzjdgVY+NM32CAGg PL23eFKwpFKkl7nrxMi5QeXx GLQbXWS2vWtkDBvjb6ZsVGFkI5 6slSLfr2C4ZZUxwKowdZQqDtDl cOB2jL2sPInkhlnak2zvvtvq Rgsty9arxp55tE50Q74gIImlKK DaFRV8PKKgGRIguRugze9faI4g Ii8+BHmnb5lbj2owfYb3YeXg JYAlthOxpMawMZV5j2FgDr50X7 HraWzhz6KrTkx1jh69rDAlv2P6 wWV1VHjfXWOnqE4yIAzaVdX8 LHGxWoRxgD86uJKoQWffHg2vcT icvHztPS6wSGUjwcnlJFFowA3f CPNtgPTctCqlED4lSXZrudom b061VbUmPOP2PSJbqKCyB8KvnD 3bGjZlGSAgEHCvF7ZbfYWmKIih B015OFxxInF5FCTwccTwA2Co THOghJgiAdX1m1V7Oh8Kd6Juew swSDE4WEcvFDGpOmYrOwNsCyS9 V2OcKae7QVAmbSqgLP7rG2Dx MPWswspdflwhiNA9YLAqYJXjmA 97vOOmFDydUm8ph4Z5j742LEXg ZGUugI44Rg4czCwbDLAmlCPZ fH8spldmb8ywwekxDlUzIGHgOY f0EMf3QEBpaGmkSbVyOFZ6LjE1 FFR4fQJisL0eiFmnrysqjU0z Oyc+V16rfO3aNQK5GBL5qwcwSW ZkooIvJX19SJ76Y8GeOrijaUFk bGU+HXTpojXxgGssUH1bAnGx k2rpi0PeLDmwU4SrBDGhSZmgNa t5EBPdCCO0sDG5nN9rDCJbDBsa n3G0bLD0P4HulpPpfg6iw0qg WQCyLRsgV09feCSyi5D0ILDdqH P1DVQnyEpaTaCnyA40Xzp+PGNv nCyrs3UfYmcjm5kqg9ttbHd2 WrCiGTXotbKmoRgxDWG3s5OeBa 42A46mEKzjMMYdPWRjSIRsHWQi sIzxgs9ymA1yKy1+PGNvbCB3 cRY8cU5tFOBuWfV3JNvmE147Vw RelBBwNgjik9dje4zdfZq3EwFu AEHdwwKtdXftJLB1z2SjJs78 U63xSQtoBCRiPSWgIRZiCMDenT xgrp8joM3qFx4+QC4dy6ioxk03 tT82tIF+ZACaJTW2cDmlHRjo PZNauH9uOEjsCjF6DPBoMhGieP 27uUQaYDoxHw0gzLaccXqoGD2n HZBdbpotp941UvMte9qzPJBl qIMaZCyeSXH5J31up3V6YTYhKI JkSMZ2iIM3zL1eeLnpfysiuMVz dPqumsWgoAbcSLwfGGwwO276 IHRvcDsnPlBhdGllbnQgTmFtZT d2P8CbHiq3UALbbBaxTM3rbBVg NJrrQh4xgIzejKbaUW7eZRTb yxbdm998XbYrq8eiIXNggAZvBT cxBDW8S97ed2E5LCLiNHJlALQ3 hVT7jT5nyAjzvzqinXUndDty kvNwxVkdWRtqZUswL323HUYglD spLdOpotElVQIzrNW9LU29FH65 xGVkr7L1gCC1W5IdYSNqmvno cjcrsGQ0ZFHdYKQrgT82Hq7tvN aqZb4jIFOwWAY2EMIwqBOgW2Bp qZ6hYuFrXSWhHULlS2BycGFv QJfpW963XWpsJjQ0QENtmaGyK8 QqAKKvjIyrUoS9o8L0Bx4TH6F0 YG22IO58oPOpv3Z6tWY7P8Vi LPHjrsydmhpubWD4NCKxTBGnsF 98Bh8nmIveOx0xVHVdINH8GBGw oCSlF2YcpL5gIeMaBIRdUHCf N5NbxZGnNJkmZ183EJzkPeN2TS AksnIqT6SjZECxrAyeSmS6c7B8 Dl5CJVt7JH30DP60eWNok1C8 oZR5Q4LeOYJykimhrumgtQH6SQ WoYHFlrE10Bj6biSzxSq6oIMSz GFS5ZJGqdRUaJ8QxbW8sHrDr GDFwOKGsW4JolAWyJFfsM533VR oyAnM4CLIlziBkB1TyLUWkmEdq GoC2i0V4Hj8ZGCTkIG99EDB6 nUA6NG19UF69X9CaMbqpaIJudR U+PHRhYmxlIHdpZHRoPScxMDAl QfUoeImoJN0uEs9bRFNsZCYg fArcnMRlHvJti0mlLMXuJIxbOZ 0mjMlsX1PrzAQ0FGXle5m2Cg11 H74aJ7VtaFB+JFWxgTD8nXG7 wD2jLtHyUbK9XKfkM513BdFyaL IsMcrvb8qrg4guxMb2QrP1PZTs xtRtpMhwUNJ0j5DkAr26V01c IHdpZHRoPSIxNSUiIHZhbGlnbj 9gfB6iAp6+QPRgcTS7eWQ2vC4h IhBdCwW4NVhwU067DdEtvTPt Vixgo8eiw2lrqRi7DxHfKWXlsm MeaIiwCTA0f6JhBp83Q6OxiWba e4QrAem8sd22fCQzd1Q1bMP3 O1UvSJGjebmciKDjaWjiLZ1yJN OdncrzOVRbtX5oTKHzQ9o0HfCy EzW0XGfmV2KbbiP7QARflSEy VJmpQAB8Q70qy9T3HZVhQXFpUS G9uFF5lO6uvFyqljydyFTotDlr jwKslAboJOkaVLqfG791NNTn eTpeXMXswC1cCCSbiCUhyCtjNH 9uITYsrjubFvCATGITL65EHZLV V8QMTV9aBxroaWE+PHRkIHN0 yPojEGryVYVtjA8rDAIpE6k9Nr XaSkS3PGyfR4RaYKPqylblWi92 pA4yDnZzQsK6FAjiB1EczgY3 RZJbfXPtXKxcJYL5K06zy4L8EL BxSGSoWLH0rLQ8yK0qpUzadgky bGVmdDsgdmVydGljYWwtYWxp E292AJRgqDxoHqW4SaDiLkC4UK B3B2WkRec0BUZfzCtzTB7moDAn VVjsSy3hiIytvNwjGS8tTHRk bbrrLJClnO5fUCWynMElhRusHK 6xXJVaqsyan918PpBeMMU8MXEa eKWeE1YikO7gHnCdNUBsRRGl T3UzoLGaJBfoT839NNqxFtA1WJ HotyPmI5YsQZCgaZjpWqD6u4B0 Cb5kPELFXNPthenggEK+PHRk RAC7pGkzBFoyDFIcbS2gJCHfU5 z9FoYzLgN0DTgxT6RvEWXaklrn Pl92aU7yYcGcYjP7GHofK8Nk arP3QYMwoMSuKTehABM9K49kk6 O6PYHcKJGqBWP9yEF2zL0tmKlv bjogbGVmdDsgdmVydGljYWwt OKovI466SHPdaIfzOhQqbROeDH wvdGQ+YMUmUVR1yQqrNJrmRWIw bB6sSEEkH1m3BvRcBqL1YPrg J6FbZGCwptdjHl66vA2uRrWmNu I6UBmpT2OvsoV8CYYqwQHmDKzd GJQ1B92qy1N0ETZsVFKdRCL8 dQU5zI5mdHyncwaiuNZkaTcaeb TmqWogHVyoPYclP085BQCxjOxh CllcSeFHtu4nYG1hHtyttBF+ PO45ts82I3HdLxgnQpj1RMYyQG Y9zVZ1aI0sWSBhEZydu8W3eKQ2 M4TrzgLhyt7nt6pqHSOkYXhw B11ydGUut7O3XBZhsNX7XTPszD twIkIvbR21Swm+SGYblIglu2Vm Mfnwp9gbv5osjBm9PgAiSPRr jyWxaObdUXX1v9LeLz99N45iSH lkQNDsGOGoZFWeEPZnoIqjaa9c oF6cCj1+NXTkrCP1vUS8rM8o MeWhXoM1UYihG821WwDtdVSdJv msv8fxu1ktlDo2WgXpHPRkehHt cQczBEG8g3YlPk32R2RkrSlw h4GcPdw5ei37qSKde3L7iHN0O7 ToDCFksmzavKMnuGecOM0wESHw dynyPZSeaT5nQGBuP3r5UrJl QsN9MBreH7SbpaY4ZBWewMEuLK OynEDJrO7inmhao0aitijeQiKh KGNsIIg5PKh8OAXwqIyeNtGb PDN9QmT2SPU1uNZlgX5qyIidzu wmlV0rPer+ZYg7c0yihKCyHT3j dES0AG20IK91oNKan9G3nJH7 I0NyYZJqatcuacttyHT9RKKmEI JakF86Sj7zuKyiSz8zPNNgEJY0 ILTywHBtX9YdoT1rXjQyUYBm ZKAdE5JksHQqJMvwK891EQanMr Y7JSOmfrLpQ1DyLKDwxZlbOzN7 s7I6Je3LMP32XD99YW83kZGv d4V7nHE9M9HgRRVdzviteophtO G2BWFvQPZthC51Im1dwGfbCf0g BMEoTUO2SOZnsRRcJ9ZnnW3w MiOhXVKdSEZiW3ZzcRZhMRchC1 12EIssZsB2ZENtneOcY8HzVNMg gEwnKwI4y5F1Lu6QRs47GI60 OP45nXKge3B4uDT1O2QaTHObvu edxnrvtNT8BQWtVXNziV41Jw6d rRieDh0oCEVrKWK7HQIopNUf V6RnyS9iAnIdIKKvVAJaF4BifD ZyOWbbA194CMmeUgI0TLZaspXp A4FvLHVquRfyRmI3v2W0Fo9R YQldjwz1W6RlIlxmbWM+PC90YW YfMG89sFCxzUIlz7sqySg0TlAb HNBaJMA1cYdfLUnqx5DrRDFa Y29s (more content not included)... Normal [facility] Family Medicine Office/Clini c Noteon 12-27-2021 [...] Tobar to record this visit. JEAN CARLOS pheresis specialist and provider reviewed before signing. Completed by: Rosa Isela Rouse/Angeli Ignacio. Pated by Priyanka Mosley, Quality Salad Chef. Follow-up No qualifying data available Problem List/Past [...] acel/tetanus ad (more content not included)... Normal [facility] Comment on above: Result Comment: Elec tronically Signed By: Hayes Moura MD\.br\Date and Time Signed: 12/27/21 15:46 EST\.br\Electronically Co-Signed By: Priyanka Mosley\.br\Date and Time Co-Signed: 12/26/21 22:49 EST RENETTAJosefa 01-02-2017 CNOV Office Visit (AGEXPHUD) CLAUSCUCO TEE ([id number]) 1995 FDate Time Provider Ymeyeeljnk20/22/17 2:30 PM FANNY GROSS (DESMOND) AGEXPHDANAY During [...] CLAVULANATE 125 MG TABLETKatsylvia Gross, CNPKatalin Renato, [employer] 01/02/2017 2:39 PM SignedBP 125/75 Pulse 79 [...] Yes. To reduce yoursymptoms, you can:?Take an enmi-jzc-yigzkvb pain reliever to reduce the pain?Rinse your [...] pulsating irrigation device (sample brand names: Grossan HydroPulse,WaterpiLumiy Sinusense Water Pulsator) ? These are battery-powered [...] 4 - HivesDate Reviewed: 01/02/2017Reviewed by: Fanny ([facility]) Renato - Fully AssessedReason for [...] reduce your symptoms, you can: ?Take an naiy-zhj-evuuutm pain reliever to reduce the pain ?Rinse [...] with your doctor This topic retrieved from [facility] Patient education: Rinsing out your nose with [...] ?A pulsating irrigation device (sample brand names: Storelift HydroPulse, MedHab Sinusense Water Pulsator) ? These are battery-powered [...] out your nose. This topic retrieved from [facility] ordered this encounter Disp Refills Start End AMOXICILLIN 875 MG-POTASSIUM CLAVULA* 20 t* 0 01/02/2017 01/12/2017 Route: ORAL Sig: Take 1 tablet by mouth every 12 hours for 10 days.Disposition: Return if symptoms worsen or fail to improve.Follow-up and Disposition History RecordedEncounter Number: [id number] Status:Closed by FANNY GROSS CNP on 01/02/17 [facility] PROGRESSon 01-02-2017 PROGRESS HNO ID: [id number] thor: Fanny (Desmond) Arleyervice: (none)Author Type: Nurse [...] MG-POTASSIUM CLAVULANATE 125 MG TABLETFanny Gross CNP [facility] CNOVon 11-12-2016 CNOV Office Visit (AGEXPHUD) CUCO DEVLIN ([id number]) 1995 FDate Time Provider Tdnjjodtzf30/2/17 8:15 AM FANNY GROSS (DESMOND) AGEXPHUD During [...] too much?Breathing in harsh chemicals, such as poultry culler or gasoline?Drinking too much alcohol or smoking [...] Other causes of laryngitis are treated on qrrrs-hz-jwfz basis.-Voice rest is used for acute laryngitis, [...] Laryngitis, acute [J04.0]Order(s):ALERE STREP A TEST (AG) [0088968] Order #: [id number] THROAT CULTURE [SQTHRCUL] Order #: [id number] FUTURE lidocaine viscous (LIDOCAINE VISCOUS) 2 % [...] much ?Breathing in harsh chemicals, such as poultry culler or gasoline ?Drinking too much alcohol or [...] causes of laryngitis are treated on a bmkq-ea-vybi basis. -Voice rest is used for acute [...] to do for your baby. Retrieved from [employer] ordered this encounter Disp Refills Start End LIDOCAINE 2 % MUCOSAL SOLUTION 100 * 0 11/12/2016 Route: ORAL Sig: Take 5 mL by mouth four times daily as needed for Pain (swish and spit, do NOT swallow).Disposition: Return if symptoms worsen or fail to improve.Follow-up and Disposition History RecordedEncounter Number: [id number] Status:Closed by FANNY GROSS CNP on 11/12/16 [facility] PROGRESSon 11-12-2016 PROGRESS HNO ID: [id number] thor: Fanny (Desmond) Arleyervice: (none)Author Type: Nurse [...] Written educational material givenDESMOND Higginbotham [facility] Throat Cultureon 11-12-2016 Throat Culture Test performed at [facility] No group A beta streptococci cultured. Normal [facility] Comment on above: Performed By: #### C THRT ####[facility] [place], [place] [address] Vital Signs Date Time Vital Sign Value Performing Clinician Facility 03-14-2023 09:31-0500 Body mass index (BMI) [Ratio] 31.17 kg/m2 Cheyenne Bj DO Work Phone: [facility] 03-14-2023 09:31-0500 Body weight 92.99 kg Cheyenne Bj DO Work Phone: [facility] 03-14-2023 09:31-0500 Diastolic blood pressure 66 mm[Hg] Cheyenne Bj DO Work Phone: [facility] 03-14-2023 09:31-0500 Systolic blood pressure 130 mm[Hg] Cheyenne Bj DO Work Phone: [facility] 12-26-2021 13:47-0500 Blood Pressure Location Hayes Gudimella [facility] 12-26-2021 13:47-0500 Body temperature 96.8 [degF] Hayes Gudimella [facility] 12-26-2021 13:47-0500 Diastolic blood pressure 72 mm[Hg] Hayes Gudimella [facility] 12-26-2021 13:47-0500 Heart rate 67 /min Hayes Gudimella [facility] 12-26-2021 13:47-0500 Respiratory rate 16 /min Hayes Gudimella [facility] 12-26-2021 13:47-0500 SaO2% (BldA) [Mass fraction] 98 % Hayes Gudimella [facility] 12-26-2021 13:47-0500 Systolic blood pressure 112 mm[Hg] Hayes Moura [facility] Encounters Encounter Date Encounter Type Care [...] 11-05-2022 Emergency department patient visit Gorge Castro Facility:[facility] Start: 05-14-2022 End: 05-14-2022 ambulatory PRETTY VIVAS . Facility: Start: 12-26-2021 End: 12-27-2021 ambulatory MD Hayes Moura Facility:[facility] Start: 12-26-2021 End: 12-26-2021 Lab Drop off Hayes Moura [facility] Start: 12-26-2021 End: 12-26-2021 Patient encounter procedure Hayes Moura [facility] Start: 11-12-2016 End: 11-13-2016 Ambulatory FANNY ([employer]) [facility] Start: 11-12-2016 End: 11-12-2016 Ambulatory FANNY (DESMOND) [facility] Procedures Date Procedure Procedure Detail Performing Clinician Start: 03-14-2023 Urnls dip stick/tabl et rgnt non-auto w/o micrscp Cheyenne Bj DO Work Phone: Start: 02-11-1998 Adenoid excision Hayes Gudimella Plan of Treatment Date Care Activity Detail Author Start: 04-04-2023 End: 04-04-2023 Patient encounter procedure 04/04/2023 9:10 AM EST Routine [facility] [address] [place] [address] Pretty Vivas PA [address] [place], [place] [id number] [facility] Start: 10-12-2022 Influenza vaccination Influenza Vacc ine (#1) [facility] Immunizations Immunization Date Immunization Notes Care Provider Fa cility 04-16-2020 SARS-CoV-2 (COVID-19 ) mRNA-1273 vaccine Hayes Gudimella [facility] 01-12-2020 influenza virus vaccine, unspecified formulation Cheyenne Bj DO Work Phone: [facility] 11-16-2019 influenza, injectable, quadrivalent, contains preservative Hayes Gudimella [facility] 08-28-2019 tetanus toxoid, reduced diphtheria toxoid, and acellular pertussis vaccine, adsorbed Hayes Gudimella [facility] NEGATED: Highlighted row has not occurred!12-26-2021 influenza virus vaccine, unspecified formulation Hayes Gudimella [facility] Payers Date Payer Category Payer Unknown BCBS BCBS [id number] [id number] 2021-Present [phone] [address] [place] [address] [id number] 1993 Unknown [id number] 2.16.840.1.188904.3.579.2.593 1993 Unknown [id number] 2.16.840.1.464850.3.579.2.727 1993 Unknown [id number] 2.16.840.1.255145.3.579.2.727 1993 Unknown [id number] 2.16.840.1.013532.3.579.2.727 1993 Unknown [id number] 2.16.840.1.871715.3.579.2.727 1993 Unknown [id number] 2.16.840.1.361965.3.579.2.1259 1993 Unknown [id number] 2.16.840.1.472850.3.579.2.1259 1993 Unknown [id number] 2.16.840.1.506697.3.579.2.1259 1993 Unknown [id number] 2.16.840.1.872993.3.579.2.1259 1993 Unknown [id number] 2.16.840.1.875058.3.579.2.1259 1993 Unknown [id number] 2.16.840.1.343416.3.579.2.1259 1993 Unknown [id number] 2.16.840.1.134716.3.579.2.1259 1959 Unknown [id number] Unknown [id number] Social History Date Type Detail Facility Start: 12-26-2021 Tobacco smoking status Ex-smoker (finding) [facility] Comment on above: denies denies Tobacco smoking status Never [facility] Comment on above: denies denies Sex Assigned At Female [facility] Tobacco smoking status NHIS Tobacco smoking consumption unknown [facility] Start: 10-05-2022 [facility] Start: 1995 Sex Assigned At Not on file [facility] Functional Status Date Assessment Result Facility 12-26-2021 Functional Status N/A [facility] History of Present illness Narrative 03-14-2023 [...] nursing note reviewed. Exam conducted with a senior sql developer present. Vitals: Estimated body mass index is [...] Cheyenne Lorenzo DO documented in this encounter [facility] Clinical Note 01-19-2022 Note Date [...] Locations R1: This test was performed at: [facility], [address] [place] [address], [facility] , , [facility] Comment on above: Performed By: #### [id number] #### [facility] [address] [place] [id number] Clinical Note 12-29-2021 Note Date & Type [...] Locations R1: This test was performed at: [facility], [address] [place] [address], [id number] , [facility] Comment on above: Performed By: #### [id number] #### [facility] [address] [place] [id number] Evaluation + Plan note 12-26-2021 Note Date & Type Note Facility 12-26-2021 Evaluation + Plan note Diagnostic Tests PendingFluid Culture 12/26/21 [facility] Evaluation + Plan note Note Date & Type Note Facility Evaluation + Plan note No data available for this section [facility] Evaluation note Note Date & Type Note Facility Evaluation note Diagnosis Second trimester state, incidental documented in this encounter [facility] Discharge instructions Note Date & Type Note Facility Hospital Discharge instructions No data available for this section [facility] Progress note Note Date & Type Note Facility Progress note No data available for this section [facility] Summary Purpose Family History No Family History Records FoundNo Family History Records FoundNo Family History Records FoundNo Family History Records FoundNo Family History Records Found Advance Directives No Advanced Directives Records FoundNo Advanced Directives Records FoundNo Advanced Directives Records FoundNo Advanced Directives Records FoundNo Advanced Directives Records Found Additional Source Comments INFORMATION SOURCE (unrecogn ized section and content) DATE CREATED AUTHOR 08/06/2017 [facility] DATE CREATED AUTHOR AUTHOR'S ORGANIZ ATION 08/17/2017 [facility] DATE CREATED AUTHOR AUTHOR'S ORGANIZ ATION 05/21/2022 [facility] DATE CREATED AUTHOR AUTHOR'S ORGANIZ ATION 11/16/2022 [facility] DATE CREATED AUTHOR AUTHOR'S ORGANIZ ATION 05/17/2023 [facility] EPIC Patient Care team informatio n (unrecognized section and content) [employer] Relationship Specialty Start Date End Date Alexandra Lopez MD [address] [place] [id number] PCP - General Family Medicine 11/16/22 Reason [...] BE BASED ON THE PRIMARY CLINICAL RECORDS. [employer] provides no warranty or guarantee of the accuracy or completeness of information in this document.
== END 2023-05-29 20:49 | disposition home or self-care (01) ==
LOC: LAB 20:48
PROVIDERS: Visit Provider Physician Assistant
DX: Z34.93 Encounter for supervision of normal pregnancy, unspecified, third trimester (principal)
CPT/HCPCS: 87081

== ENCOUNTER 2023-05-31 09:57 | Outpatient (OUT) | payer BC, SELFPAY ==
--- OUTSIDE RECORDS SUMMARY | 2023-05-31 10:02 | XMS_ITS | CCD ---
Author Organization [facility] Care Team Providers Care Stringer Up Soldering Machine Name Role Phone MOSDARLINE FANNY (FLEXIBLE BABYSITTER) Unavailable Unavailab le MOSNEAG, FANNY (FLEXIBLE BABYSITTER) Unavailable Unavailab le IMCA Unavailable Unavailable RENATO, [...] Unavailable Jessica STEINBERG Alexandra Primary Care Provider [phone] PRETTY VIVAS Attending Unavailable CHEYENNE LORENZO Attending Unavailable PRETTY VIVAS Attending Unavailable CHEYENNE LORENZO Attending Unavailable CHEYENNE LORENZO Attending Unavailable CHEYENNE LORENZO Attending Unavailable PRETTY VIVAS Attending Unavailable CHEYENNE LORENZO Attending Unavailable Allergies Allergy Classification Reported Allergen(s) Allergy Type Date of Onset Reaction(s) Facility (2 sources) Sulfonamides (Antibiotic); Translations: [SULFA (SULFONAMIDE ANTIBIOTICS)] Propensity to adverse reactions to drug (disorder) 7 AOF [facility] Other [facility] (7 sources) Sulfonamides (Antibiotic); Translations: [sulfa drugs] Drug allergy [facility] (1 source) Sulfonamides (Antibiotic) Drug allergy (disorder) [facility] (1 source) Sulfonamides (Antibiotic) Drug Allergy 3 Unknown [facility] Medications Current Medications Medication Drug Class(es) Dates Sig (Normalized) Sig (Original) clotrimazole 10 mg/ml topical cream (6 sources) Azole Antifungal Start: 12-26-2021 clotrimazole Top 1% Crm 1 lenin, Topical, BID, 24 gram, Refill(s) 0, [id number], 175, cm, 12/26/21 13:50:00 EST, Height/Length Dosing, [...] UA Negative Negative - 4(70) +++ mg/dL [facility] Work Phone: Blood, UA Negative Negative - 50 Jarrett/mcL [facility] Work Phone: Clarity, UA Clear [facility] Work Phone: Color, UA Yellow [facility] Work Phone: Glucose, UA Positive Negative - 1999(110) ++++ mg/dL [facility] Work Phone: Comment on above: 100 Interpretation and review of laboratory results Abnormal [facility] Work Phone: Ketones, UA Negative Negative - 160(16) ++++ mg/dL [facility] Work Phone: Leukocytes, UA Moderate Negative - 500+++ Brooke/mcL [facility] Work Phone: Nitrite, UA Negative Negative - Positive [facility] Work Phone: pH, UA 7.0 5 - 9 [facility] Work Phone: Protein, UA Negative Negative - 1999(20) ++++ mg/dL [facility] Work Phone: Spec Grav, UA 1.010 1 - 1.03 [facility] Work Phone: Urobilinogen, UA 0.2 0.2 - 12 mg/dL [facility] Work Phone: [facility] Work Phone: ED Note-Physicianon 11-12-19 [...] day(s), # 14 cap(s), Refills(s) 0, Pharmacy: [facility] #[id number], 173, cm, 11/04/22 21:16:00 EDT, Height/Length Dosing, 90.6, kg, 11/04/22 21:16:00 EDT, Weight Dosing Disposition Plan Patient Discharge Condition Stable Discharge Disposition To home Discharge Prescription List Prescriptions cephalexin 500 mg Cap, 500 mg= 1 cap(s), Oral, q12hr Follow-up With When Contact Information Sherri CHEUNG In 3 days 11/07/2022 EDT [address] [facility] [address] [place] [id number] Business (1) Additional Instructions: Call the office [...] Patient seen and evaluated by the physician patient support assistant. Attending physician was present in the emergency department and supervised care. This visit was performed by both the physician and an APC. I performed all aspects of the MDM as documented. This report was transcribed using voice recognition software. Every effort was made to ensure accuracy, however, inadvertently computerized maintenance trainer mistakes may be present. Appropriate healthcare PPE was used in evaluating this patient. The patient was placed in a mask. The healthcare provider was wearing mask, gloves, and util (more content not included)... Normal [facility] Comment on above: Result Comment: Elec tronically Signed By: Bud Parker PA-C\.br\Date and Time Signed: 11/04/22 22:25 EDT\.br\Electronically Co-Signed By: Gorge Castro MD\.br\Date and Time Co-Signed: 11/11/22 20:46 EDT Discharge Instructionson Discharge Instructions [id number]:12 7 Normal [facility] ED Clinical Summaryon 2022 ED Clinical Summary [place] [id number] ED Clinical Summary Person Information Name: CUCO CARDENAS Gui Richelle/[facility] Age: 27 Years : 1995 Sex: Female Language: Citizen Of [place] PCP: Sherri CHEUNG MD Marital Status: Single [...] 11/04/2022 22:37:58 11/04/2022 22:37:58 11/04/2022 22:37:58 ADDRESS: [address] [place] [phone] PHYS DOC NOTES: MEDICAL INFORMATION: Prescriptions Given: New Medications [id number], [address] [place], [place] [id number], [phone] cephalexin (cephalexin 500 mg Cap) 1 Capsules [...] Follow up: With: Address: When: Sherri JONATAN [address] [place] [address] [address], [place] [address] Business (1) In 3 days 11/07/2022 Comments: [...] worsening symptoms. DIAGNOSIS: Fingertip avulsion Normal [facility] ED Patient Education Noteon 11-05-2022 [...] even if your condition improves. ? Take erdx-rxl-ovashoh and prescription medicines only as told by [...] and water are not available, use hand food production supervisor. ? Change your dressing as told [...] a (more content not included)... Normal [facility] ED Patient Summaryon 023 ED Patient Summary (Inserted Image. Marylu ble to display) [place] [id number] Patient Discharge Instructions Person Information Name: CUCO CARDENAS Age: 27 Years Arrival Date: 11/04/2022 21:10:12 Discharge Diagnosis: Fingertip avulsion Primary Care Physician: JONATAN STEINBERG, Sherri Milligan Provider Information Primary Provider: Advanced Bi Analyst:Bud Parker PA-C The exam and treatment you received in the Emergency Department were for an urgent problem and are not intended as complete care. It is important that you follow up with a doctor, nurse practitioner, or physician?s patient support assistant for ongoing care. If your symptoms [...] Follow-up Instructions: With: Address: When: Sherri CHEUNG [address] [place], [place] [address] [phone] Business (1) In 3 days 11/07/2022 Comments: [...] opioids can be used to help relieve znbjchkx-bm-cwfykc pain and are often prescribed following a [...] Safely (more content not included)... Normal [facility] Consent for Treatmenton 10-13 Consent for Treatment [id number]:127 Normal [facility] PAP ACOG PANEL 2: 21 to 29on 05-21-2022 . . Normal [facility] Comment on above: Performed By: #### 4 [id number] #### [facility] [address] [place] [address] Dr. Jewels Looney Age Gdln ACOG Testing - Normal [facility] Comment on above: Performed By: #### 4 [id number] #### [facility] [address] [place] [address] Dr. Jewels Looney DIAGNOSIS: Comment [facility] Comment on above: Result Comment: NEGA TIVE FOR INTRAEPITHELIAL LESION OR MALIGNANCY. Performed By: #### 4 [id number] #### [facility] [address] [place] [address] Dr. Jewels Looney Methodology: Comment [facility] Comment on above: Result Comment: This liquid based ThinPrep(R) pap test was screened with the use of an image guided system. Performed By: #### 4 [id number] #### [facility] [address] [place] [address] Dr. Jewels Looney Note: Comment [facility] Comment on above: Result Comment: The Pap smear is a screening test designed to aid in the detection of premalignant and malignant conditions of the uterine cervix. It is not a diagnostic procedure and should not be used as the sole means of detecting cervical cancer. Both false-positive and false-negative reports do occur. . Performed By: #### 4 [id number] #### [facility] [address] [place] [address] Dr. Jewels Looney Performed by: Comment Normal [facility] Comment on above: Result Comment: Rosita Haines, Examination Scorer (ASCP) Performed By: #### 4 [id number] #### [facility] [address] [place] [address] Dr. Jewels Looney Reflex Criteria: Comment [facility] Comment on above: Result Comment: The HPV DNA reflex criteria were not met with this specimen result therefore, no HPV testing was performed. . Performed By: #### 4 [id number] #### [facility] [address] [place] [address] Dr. Jewels Looney Specimen adequacy: Comment Normal [facility] Comment on above: Result Comment: Sati sfactory for evaluation. Endocervical and/or squamous metaplastic cells (endocervical component) are present. Performed By: #### 4 [id number] #### [facility] [address] [place], [place] [address] Dr. Jewels Looney Reminderson 01-19-2022 Reminders - From: Hayes Moura MD To: [facility] - Clinical; Sent: 01/16/2022 15:19:01 EST Show [...] declines any questions or concerns. Normal [facility] Coding Summary.on 12-31-2021 Coding Summary. CD:[id number] Gh0bWw +PGhlYWQ+GS0GEPUdS52sqEDek X1XP0jSFM1NCDBVTXKKTI8KKV8 svRJ3XDyqH3ItvnUj VackyZYuDQ52KKl6SKU8nUewHL mchO8lcDXsV7e8EbDuPE28vJ10 PSmuXWGySpE2NmTfjxrveONh A4enJyGbbANwRrw+PHRhYmxlIH buWNRrTDrdRSTjRqVrmKumUU5h Iu0sFNOsJWTgvKrjaAEgChOt n2jqLBDdBBvoUF3doMdjB7VqqT D7IZPmh5p9Rs05eZI+PHRkIHN0 cOshHDqyn338AnOhf9ntHYE5 hAWiILohQZV8R59cj9S1RZCxPB VaQKW1bQX8pE6jkOdtdtykP5Co zBPiCyW1KBQ6xBElvY5hhSzv ijpeuB5xGgy+D37MEJ9FMCPFWW 1WNgn1R1KaQzlzrSL+DO82NSBi NQ03eRKolRSin2ttiEq7BrOw YMJlDGH0sEeqFUklu1NwVQLvR1 0ftHYwa5C4TQLtnLfqqUMyIeHa nYO8sB5hENlfccmxs2dbzors Nodav2nmbi80qS00M70qXRokOZ VgNGJ5QLEnGARjtCogff0jcG0f Ii8+VWovx9uzt2czpUk3ChZv ZVHhrdCmpJliYTK1i9SuUa38K9 YpcWirx7AvDjt9jy03iBEzb9V8 jXS5YTtaXYWtnQ0rJKezXwJ3 RUJqFyQqiR57vZBvNYgtNr3kiH xjcQozEO2zYMCnoqnwGWUmlF4z BZCgvUMdoJnkXE4pBNDzcfsx r907PnTqXEP3JPPdeXZcB7OyrX 6eRgUeIKBrOIUkI1DzsXFmQLnz K199DUbcPlB2KUVazoBqN7Sc IEOllEcwAvJ2x0P2Tc6Ke6Kyoe xxTDE8MIptDCKnArPlMuQcZaC4 G5HsSbk2WYQbmSrmBJ1kR6Ou GYBivufbldbfvQZ1LWQqBMAjgN 21uHYaCCzaEn0mg7X7s322RPGz MYSegD00Gs6ehMgaZDVpvIMW cP2psmowo0rfbwmkCoBzQAQhLG b5DXv3JOGawRqnOkRnHGP5RfA3 WKZ1kBNvhN9rqCjivojvzK3g Oyc+K64ivT6uCRJ5AWP5nbiwRT OfmsQiXX33UQ01X2ZeHxcymUHm bGU+IQNlbmNtwWilOJ7wKeUv v0mfa9WoDWfdL5XrDHWaSYwtUi m0JINwSYE2qPG7zH1pNXHvUTer w4P0jTV9B2NzsrQujk9am2dy XRPsQUiuL11twLEzy3N6ZPSosX H0EJTtiLyjRqNflU91Pdi+PGNv lItpc9MsJnfwe3vfa4lhoSl6 TgIiNULehwImaPktKBK1u5WnVy 72H74rWIvtYQIhECYyMIUqVFFs vEtjkx6xrA4oUf5+PGNvbCB3 mYL4mF6mWAShUlD8LEsjC283Ft JfoRLnCdviv3tso3ljlJc8RpSp YOVfasIogQhgUEH1n7CjDg01 V43uWFqpPWMrIUAlGUErLUPpxK oqgx7lvS4qKf5+PR8aa0awpk09 rD11gBK+QHIcQCG7vOjvCJdc KVIpcP0dHIjbEvX6PNTnYrFsfY 32bHJyBAogGh0hlTaleAbiCS4m BNSwazszn738WzDvg0niYAAa oBAkCEdyQQQ0W95ht2H2AVYjWI GdPDQ1ePL5aC4ydRsxauckqPCf sIxieiTaeMabMIpoYZwzU594 IHRvcDsnPlBhdGllbnQgTmFtZT x1X1VpRjx8KSNcxJrkAZ7xfVSl IXqrRo6qpUrsrWwpXZ3xGCXf hatrk977UkZlf8yjSZIfpCPzRT kkHDP2H14ms3D0VWQdTVVtQGS2 tXW7tB3hsOrgsjzwhFVkqFkp shEiqSuoOLfzWWudK522PURwaK xpMkRbzaTsAIPhwYD2CF13DS72 eTJih2H0lTL9W4KhWTMmlduz wwzhgAM6ZQVkFJXlyG07Mw4ygT pxAp7xWENfLVG9SNQkeODqI9Yl xT5gYmFfQGHfANPiJ6KuvDCf YGxvZ597ONhkFdD0PELqrsEzG2 LuJJOqyInuBaN3l3X1Mb4YC5E1 AX16MK43uTWhj9N2iQU2M9Mp RJHfxkuemnvjtEF8UQLlCKWdxD 70Rr6efUsxHl1qQRArVRX4XQAi lULnU2LemS7tFcKoXJNwSYEj Y9FhsPQkNMsfI587YHacOvS6HS ZcpxKmW3NmTSSmoMzePxY9j2I7 Hm9MWTh3DD14HG16jVFju2A5 zXU8P3SyDXEtkvhuqvpgrKO9GD BxMZBkjJ72Iz3xrMzbDo0vPODy KQM1KHEclDWgM6UssP0fOsJb RYSpXRKpR9QrsNUgYFvcV193GI bgJgP5AVLjflQaT6OuWXWplCiy TqY6g7P1Lh4FEIUkYQ31PHE1 mOL4QU32NY18I5PfPqwfyIEauS U+PHRhYmxlIHdpZHRoPScxMDAl SmAhnFluSL7tWp7wGLZdMXPq lNlrcFIlJiGwu5hkOQBkLKesSR 8ybYuwB4GrvSD2VLMzs1z6Fz30 T44pT6MnnBO+BABcfEY6oQV0 dO2cHnLxFtT2RYfsX748NjHnaU GnTisbt8eys7gniEk0VwK1JZFf nhIoqYkfIGL9c1LfIg85V64m IHdpZHRoPSIxNSUiIHZhbGlnbj 9jsJ0hCt0+JHFlcBA0kGU1iO2i RrDhIaH3WWleC956IdGjaDDd Dsfiq3vvz6cwoLs8VvQnCQTzpx MhyKiuOIH3c3MjDd84X1NkvVdx w2FlJsi3hp19tLOxh5O0fAI3 Q8VdOCQkvarjjVAaxMcqUB7mNC RyunpjGRYskD7yGSUoH9h9DcOu VyP0BLzbI5BhmgG5EQSaqBHk CVakXQQ5G95jj2W0NXSoLLUhFQ X6fPP6nX4miDxzbjuwrPTvrLsg onSttApwSWudZTfiG660EURn kPnaZHTeuL1tVDBqqUNolUxgJY 0hLBPwqcceTsZGMWOTH54VPHGI N2SZZN3qQschwEK+PHRkIHN0 sTeyNHzsKDLahR8hQGJvQ9n4Kl JlRcI7MQxpJ8NuKJItnyncOv74 nP2aGhMqSeM4IIroM0WycjH3 MNAsjQIgJJigQNY6K37yk9J4DV RkJDAnOTT5cRW9yN5ppFqhidjv bGVmdDsgdmVydGljYWwtYWxp X578DFMyvXxiIgF6YyUdRxE5BX D2H5RsEgp3MBItnSqkRE9udPUf GShgCe4kxIvhwEsbKF6rGBCt mnltCVZxpC0aLXNvdWMyxXlvDB 1gPKPnazehh776TrRaQXR9WYKt eJDdM9MomZ5eJhVjHKAxZQSp S3LiqIXdCXypJ687QNwaUkX4JR OiysPnV5GeKYZbwOdhOdR5g7Z3 Ys4kNQOGEUGliddmvYK+PHRk MVY7wCueJRaiPDCfqU9gLSBuG8 x2MtLiZxQ9YWhzW3PfXDKrlrnf Uz63dR4zWnOpZkE1ROlsD1Ff urQ7CMOpjHKdTWpnRBV5D73df6 Z9PFLqYURlAQX1zCQ1bY9ogYxr bjogbGVmdDsgdmVydGljYWwt AFefI173JCIsjTcpOvZjjHEbKD wvdGQ+VBRhYIN0pIfzPXyaDPFw eW7mWUDlF1k7QoLmYmP8HUvb F1WcGFKkkjxySx46lK3sNbKlSk S2BTnpV4GbjvK9SAEpsUZeBQnh GWS1L82nz3L2BQSmPSUlFFS5 nUW5eY6nkHzkidpbpNCfmZaiav HcdAxkASqtJVgnE474MSVnrEup UhrpKuSGks8nOX8xKuzioEQ+ CW54la82M7PpUfseNiy8HGLiBI R0mHF3kM0kTVWzUGqek8K1aDO5 V5QkelRqpp0ad3kwRNCpFAmf V99xiJTmm1R6VRGzbGS1SQAoxY ywZxFmxM44Ida+UZXbgYjef0Gv Nmhdh8hlf3sjeTl8SnOvCHAq ovBfkJhtCEC7w9HpVd39M21fBZ guWAEdHHUaGWNmXSTwaHqada9b pO9sOm6+OVUbmWN5qGE5hV0u TrAdBeB1YVlsY565BeWbqRUsVn scm5yql9ejkWv4VfKdJYHggtFn kSafBHK5s0TiJe90H9ZazOac g6YlPgi5os21dHWuf9M7jCH9M0 VxMJHzbdsuvCSljDuaPA5jMWZp qzcyTWVwnQ3uWRZcB2c4HfWi OtN2LXljC2TukaS4IQBbdFNcWH OczNIOxZ4adevau1keecenNrAb ABXvXPk0ZKj5QRIntNqiTnDw JAV0GwZ0LOM4eJZjcF2ubJujax eksO5nKko+AFw1f7hezOUgNF2s wWQ4ST61CE05mESwd9J1lCU5 J2EwBPVfyogyzvohmEK5DDAnJN PxcR32Oi8kfQfhCt1lPCCwVUV6 FXTklTIiT8WjyL4lNrJuMYQc QCLkG4AsmDKuZNvmT133EPooYt X5UAYssePtV6NhBLRppSpiCpU9 v9X0Dp6IDP76ND25QZ95nALv m4F6mRI8U7HuLZMcegerllqxhA N0FEQpHOTbmU93Cm9yjRkbKj3a HRTsBZU7YFValVEoO8JrbJ3m TyVaBCVrUTLaN1RtxWIgFEkpZ3 94LHlgGvF2YYNqmoWsA9UwPZZh jPmcBjI5v7T6Bs6IKp71HU99 NH13iAJge9R8bCA3Y1TrABBeys rfrwxlkLE2EYHhLAQpmN86Wa7h oQvrOk7aNWLfXYL1FAKosZTj R5TbmH0qIwUmOKYbUOFiR0FcwD ZbTEuwP972QVkyDjI5EKFjuaFr C0OiHMSjyQreYcI2x8H3Bx5S AXtrhpv4C3TvZkjzbUR+PC90YW LrPB57fPMclIFgc2fhdXf5PdJn WQBjFIT2qEsjLWahw0FqXONc Y29s (more content not included)... Normal [facility] Family Medicine Office/Clini c Noteon [...] Tobar to record this visit. JEAN CARLOS military source operations specialist and provider reviewed before signing. Completed by: Rosa Isela Rouse/Angeli Ignacio. Pated by Priyanka Mosley, Quality Packaging Line Operator. Follow-up No qualifying data available Problem [...] ad (more content not included)... Normal [facility] Comment on above: Result Comment: Elec tronically Signed By: Hayes Moura MD\.br\Date and Time Signed: 12/27/21 15:46 EST\.br\Electronically Co-Signed By: Priyanka Mosley\.br\Date and Time Co-Signed: 12/26/21 22:49 EST RENETTAOVon 01-02-2017 CNOV Office Visit (AGEXPHUD) CLAUSCUCO ([id number]) 1995 FDate Time Provider Acfunbtbvf90/22/17 2:30 PM FANNY GROSS (DESMOND) AGEXLEONOR During [...] CLAVULANATE 125 MG TABLETKatsylvia Gross, CNPKatsylvia Gross, FLEXIBLE BABYSITTER 01/02/2017 2:39 PM SignedBP 125/75 Pulse 79 [...] Yes. To reduce yoursymptoms, you can:?Take an euik-plv-eugylwf pain reliever to reduce the pain?Rinse your [...] pulsating irrigation device (sample brand names: [employer] HydroPulse,Waterpik Sinusense Water Pulsator) ? These are battery-powered [...] 4 - HivesDate Reviewed: 01/02/2017Reviewed by: Fanny ([facility]) Renato - Fully AssessedReason for Visit: [...] MG-POTASSIUM CLAVULANATE 125 MG TABLET Fanny Gross, [facility] Patient education: Sinusitis in adults (The Basics) [...] reduce your symptoms, you can: ?Take an zlnc-pax-bzkupxd pain reliever to reduce the pain ?Rinse [...] with your doctor This topic retrieved from [facility] Patient education: Rinsing out your nose [...] ?A pulsating irrigation device (sample brand names: [employer] HydroPulse, [employer] Sinusense Water Pulsator) ? These are battery-powered [...] out your nose. This topic retrieved from [employer] ordered this encounter Disp Refills Start End AMOXICILLIN 875 MG-POTASSIUM CLAVULA* 20 t* 0 01/02/2017 01/12/2017 Route: ORAL Sig: Take 1 tablet by mouth every 12 hours for 10 days.Disposition: Return if symptoms worsen or fail to improve.Follow-up and Disposition History RecordedEncounter Number: [id number] Status:Closed by FANNY GROSS CNP on 01/02/17 [facility] PROGRESSon 01-02-2017 PROGRESS HNO ID: [id number] thor: Fanny (Desmond) Arleyervice: (none)Author Type: Nurse [...] MG-POTASSIUM CLAVULANATE 125 MG TABLETFanny Gross CNP [facility] CNOVon 11-12-2016 CNOV Office Visit (AGEXPHUD) CLAUSCUCO TEE ([id number]) 1995 FDate Time Provider Bzgniqiaep90/2/17 8:15 AM FANNY GROSS (DESMOND) AGEXPHDANAY During [...] acute - ICD9: 464.00, ICD10: J04.0- see belowKatalin Mosneag, CNPPatient information: Cough, runny nose, and the [...] too much?Breathing in harsh chemicals, such as microbiology laboratory manager or gasoline?Drinking too much alcohol or smoking [...] Other causes of laryngitis are treated on ihubl-lj-nqln basis.-Voice rest is used for acute laryngitis, [...] Laryngitis, acute [J04.0]Order(s):ALERE STREP A TEST (AG) [3703684] Order #: [id number] THROAT CULTURE [SQTHRCUL] Order #: [id number] FUTURE lidocaine viscous (LIDOCAINE VISCOUS) 2 % [...] much ?Breathing in harsh chemicals, such as microbiology laboratory manager or gasoline ?Drinking too much alcohol or [...] causes of laryngitis are treated on a sfii-ox-jbvy basis. -Voice rest is used for acute [...] to do for your baby. Retrieved from [employer] ordered this encounter Disp Refills Start End LIDOCAINE 2 % MUCOSAL SOLUTION 100 * 0 11/12/2016 Route: ORAL Sig: Take 5 mL by mouth four times daily as needed for Pain (swish and spit, do NOT swallow).Disposition: Return if symptoms worsen or fail to improve.Follow-up and Disposition History RecordedEncounter Number: [id number] Status:Closed by FANNY GROSS CNP on 11/12/16 [facility] PROGRESSon 11-12-2016 PROGRESS HNO ID: [id number] thor: Fanny (Desmond) Arleyervice: (none)Author Type: Nurse [...] ICD10: J04.0- Written educational material givenDESMOND Higginbotham [facility] Throat Cultureon 11-12-2016 Throat Culture Test performed at [facility] No group A beta streptococci cultured. Normal [facility] Comment on above: Performed By: #### C THRT ####[facility] [place] [id number] Vital Signs Date Time Vital Sign Value Performing Clinician Facility 03-14-2023 09:31-0500 Body mass index (BMI) [Ratio] 31.17 kg/m2 Cheyenne Bj DO Work Phone: [facility] 03-14-2023 09:31-0500 Body weight 92.99 kg Cheyenne Bj DO Work Phone: [facility] 03-14-2023 09:31-0500 Diastolic blood pressure 66 mm[Hg] Cheyenne Bj DO Work Phone: [facility] 03-14-2023 09:31-0500 Systolic blood pressure 130 mm[Hg] Cheyenne Bj DO Work Phone: [facility] 12-26-2021 13:47-0500 Blood Pressure Location Hayes Gudimella [facility] 12-26-2021 13:47-0500 Body temperature 96.8 [degF] Hayes Gudimella [facility] 12-26-2021 13:47-0500 Diastolic blood pressure 72 mm[Hg] Hayes Gudimella [facility] 12-26-2021 13:47-0500 Heart rate 67 /min Hayes Gudimella [facility] 12-26-2021 13:47-0500 Respiratory rate 16 /min Hayes Gudimella [facility] 12-26-2021 13:47-0500 SaO2% (BldA) [Mass fraction] 98 % Hayes Gudimella [facility] 12-26-2021 13:47-0500 Systolic blood pressure 112 mm[Hg] Hayes Moura [facility] Encounters Encounter Date Encounter Type Care Provider Facility Start: 05-29-2023 End: 05-29-2023 ambulatory PRETTY SANGEETHA Not Available Start: 05-16-2023 End: 05-16-2023 ambulatory CHEYENNE BJ [...] 11-05-2022 Emergency department patient visit Gorge Castro Facility:[facility] Start: 05-14-2022 End: 05-14-2022 ambulatory PRETTY SANGEETHA . Facility: Start: 12-26-2021 End: 12-27-2021 ambulatory MD Hayes Moura Facility:[facility] Start: 12-26-2021 End: 12-26-2021 Lab Drop off Hayes Moura [facility] Start: 12-26-2021 End: 12-26-2021 Patient encounter procedure Hayes Moura [facility] Start: 11-12-2016 End: 11-13-2016 Ambulatory FANNY (FLEXIBLE BABYSITTER) [facility] Start: 11-12-2016 End: 11-12-2016 Ambulatory FANNY (FLEXIBLE BABYSITTER) [facility] Procedures Date Procedure Procedure Detail Performing Clinician Start: 03-14-2023 Urnls dip stick/tabl et rgnt non-auto w/o micrscp Cheyenne Bj DO Work Phone: Start: 02-11-1998 Adenoid excision Hayes Gudimella Plan of Treatment Date Care Activity Detail Author Start: 04-04-2023 End: 04-04-2023 Patient encounter procedure 04/04/2023 9:10 AM EST Routine [facility] [address] [place] [address] Pretty Vivas PA [address] [place] [address] [facility] Start: 10-12-2022 Influenza vaccination Influenza Vacc ine (#1) [facility] Immunizations Immunization Date Immunization Notes Care Provider Fa cility 04-16-2020 SARS-CoV-2 (COVID-19 ) [id number] vaccine Hayes Gudimella [facility] 01-12-2020 influenza virus vaccine, unspecified formulation Cheyenne Alvao DO Work Phone: [facility] 11-16-2019 influenza, injectable, quadrivalent, contains preservative Hayes Gudimella [facility] 08-28-2019 tetanus toxoid, reduced diphtheria toxoid, and acellular pertussis vaccine, adsorbed Hayes Gudimella [facility] NEGATED: Highlighted row has not occurred!12-26-2021 influenza virus vaccine, unspecified formulation Hayes Gudimella [facility] Payers Date Payer Category Payer Unknown BCBS BCBS xxxxxx [id number] 2021-Present [phone] [address] [place] [address] [id number] 1993 Unknown [id number] 2.16.840.1.388948.3.579.2.593 1993 Unknown [id number] 2.16.840.1.348746.3.579.2.727 1993 Unknown [id number] 2.16.840.1.605277.3.579.2.727 1993 Unknown [id number] 2.16.840.1.027032.3.579.2.727 1993 Unknown [id number] 2.16.840.1.093495.3.579.2.727 1993 Unknown [id number] 2.16.840.1.893469.3.579.2.1259 1993 Unknown [id number] 2.16.840.1.227581.3.579.2.1259 1993 Unknown [id number] 2.16.840.1.927149.3.579.2.1259 1993 Unknown [id number] 2.16.840.1.517460.3.579.2.1259 1993 Unknown [id number] 2.16.840.1.508587.3.579.2.1259 1993 Unknown [id number] 2.16.840.1.197558.3.579.2.1259 1993 Unknown [id number] 2.16.840.1.213314.3.579.2.1259 1993 Unknown [id number] 2.16.840.1.244751.3.579.2.1259 1959 Unknown [id number] Unknown [id number] Social History Date Type Detail Facility Start: 12-26-2021 Tobacco smoking status Ex-smoker (finding) [facility] Comment on above: denies denies Tobacco smoking status Never [facility] Comment on above: denies denies Sex Assigned At Female [facility] Tobacco smoking status NHIS Tobacco smoking consumption unknown [facility] Start: 10-05-2022 [facility] Start: 1995 Sex Assigned At Not on file [facility] Functional Status Date Assessment Result Facility 12-26-2021 Functional Status N/A [facility] History of Present illness Narrative 03-14-2023 [...] nursing note reviewed. Exam conducted with a rn ante partum present. Vitals: Estimated body mass index is [...] Lorenzo DO documented in this encounter [facility] Clinical Note 01-19-2022 Note Date [...] Locations R1: This test was performed at: [facility], [address] [place] [address], [id number] , [place], [facility] Comment on above: Performed By: #### [id number] #### [facility] [address] [place] [id number] Clinical Note 12-29-2021 Note Date & Type [...] Locations R1: This test was performed at: [facility], [address] [place] [address], [id number] , , [facility] Comment on above: Performed By: #### [id number] #### [facility] [address] [place] [id number] Evaluation + Plan note 12-26-2021 Note Date & Type Note Facility 12-26-2021 Evaluation + Plan note Diagnostic Tests PendingFluid Culture 12/26/21 [facility] Evaluation + Plan note Note Date & Type Note Facility Evaluation + Plan note No data available for this section [facility] Evaluation note Note Date & Type Note Facility Evaluation note Diagnosis Second trimester state, incidental documented in this encounter [facility] Discharge instructions Note Date & Type Note Facility Hospital Discharge instructions No data available for this section [facility] Progress note Note Date & Type Note Facility Progress note No data available for this section [facility] Summary Purpose Family History No [...] section and content) DATE CREATED AUTHOR 08/06/2017 [facility] DATE CREATED AUTHOR AUTHOR'S ORGANIZ ATION 08/17/2017 [facility] DATE CREATED AUTHOR AUTHOR'S ORGANIZ ATION 05/21/2022 [facility] DATE CREATED AUTHOR AUTHOR'S ORGANIZ ATION 11/16/2022 [facility] DATE CREATED AUTHOR AUTHOR'S ORGANIZ ATION 05/30/2023 [facility] EPIC Patient Care team informatio n (unrecognized section and content) [employer] Relationship Specialty Start Date End Date Alexandra Lopez MD [address] [facility] [place] [id number] PCP - General Family Medicine 11/16/22 Reason [...] BE BASED ON THE PRIMARY CLINICAL RECORDS. [facility]. provides no warranty or guarantee of the accuracy or completeness of information in this document.
[2023-05-31 13:12] VITALS: BP 124/77; PULSE 64
== END 2023-05-31 13:43 | disposition home or self-care (01) ==
LOC: FBCO 09:58 → FBC 13:07
PROVIDERS: Visit Provider Obstetrics & Gynecology
DX: O40.3XX0 Polyhydramnios, third trimester, not applicable or unspecified (principal); Z3A.00 Weeks of gestation of pregnancy not specified
CPT/HCPCS: 59025

== ENCOUNTER 2023-06-04 07:08 | Outpatient (OUT) | payer BC, SELFPAY ==
--- OUTSIDE RECORDS SUMMARY | 2023-06-04 07:10 | XMS_ITS | CCD ---
Author Organization [facility] Care Team Providers Care Dermatology Teacher Name Role Phone MOSDARLINE FANNY (SPORTS TRAINER) Unavailable Unavailab le MOSNEAG, FANNY (SPORTS TRAINER) Unavailable Unavailab le IMCA Unavailable Unavailable RENATO, FANNY E Unavailable Unavailable Sherri CHEUNG Primary Care Physician [phone] PRETTY MCGRAW Admitting Unavailable PRETTY MCGRAW Attending [...] to drug (disorder) 7 AOF [facility] Other [place] [facility] (7 sources) Sulfonamides (Antibiotic); Translations: [sulfa drugs] Drug allergy [facility] (1 source) Sulfonamides (Antibiotic) Drug allergy (disorder) [facility] Rep[facility] (1 source) Sulfonamides (Antibiotic) Drug Allergy 3 Unknown [facility] Medications Current Medications Medication Drug Class(es) Dates Sig (Normalized) Sig (Original) clotrimazole 10 mg/ml topical cream (6 sources) Azole Antifungal Start: 12-26-2021 clotrimazole Top 1% Crm 1 lenin, Topical, BID, 24 gram, Refill(s) 0, [id number], 175, cm, 12/26/21 13:50:00 EST, Height/Length Dosing, [...] UA Negative Negative - 4(70) +++ mg/dL [facility] Work Phone: Blood, UA Negative Negative - 50 Jarrett/mcL [facility] Work Phone: Clarity, UA Clear [facility] Work Phone: Color, UA Yellow [facility] Work Phone: Glucose, UA Positive Negative - 1999(110) ++++ mg/dL [facility] Work Phone: Comment on above: 100 Interpretation and review of laboratory results Abnormal [facility] Work Phone: Ketones, UA Negative Negative - 160(16) ++++ mg/dL [facility] Work Phone: Leukocytes, UA Moderate Negative - 500+++ Brooke/mcL [facility] Work Phone: Nitrite, UA Negative Negative - Positive [facility] Work Phone: pH, UA 7.0 5 - 9 [facility] Work Phone: Protein, UA Negative Negative - 1999(20) ++++ mg/dL [facility] Work Phone: Spec Grav, UA 1.010 1 - 1.03 [facility] Work Phone: Urobilinogen, UA 0.2 0.2 - 12 mg/dL [facility] Work Phone: [facility] Work Phone: ED Note-Physicianon 11-12-19 [...] day(s), # 14 cap(s), Refills(s) 0, Pharmacy: [facility] #[id number], 173, cm, 11/04/22 21:16:00 EDT, Height/Length Dosing, 90.6, kg, 11/04/22 21:16:00 EDT, Weight Dosing Disposition Plan Patient Discharge Condition Stable Discharge Disposition To home Discharge Prescription List Prescriptions cephalexin 500 mg Cap, 500 mg= 1 cap(s), Oral, q12hr Follow-up With When Contact Information Sherri CHEUNG In 3 days 11/07/2022 EDT [address] [facility] [place] [id number] Business (1) Additional Instructions: Call the office [...] Patient seen and evaluated by the physician doctor assistant. Attending physician was present in the emergency department and supervised care. This visit was performed by both the physician and an APC. I performed all aspects of the MDM as documented. This report was transcribed using voice recognition software. Every effort was made to ensure accuracy, however, inadvertently computerized thread grinder tool mistakes may be present. Appropriate healthcare PPE was used in evaluating this patient. The patient was placed in a mask. The healthcare provider was wearing mask, gloves, and util (more content not included)... Normal [facility] Comment on above: Result Comment: Elec tronically Signed By: Bud Parker PA-C\.br\Date and Time Signed: 11/04/22 22:25 EDT\.br\Electronically Co-Signed By: Gorge Castro MD\.br\Date and Time Co-Signed: 11/11/22 20:46 EDT Discharge Instructionson Discharge Instructions [id number]:12 7 Normal [facility] ED Clinical Summaryon 2022 ED Clinical Summary [place] [id number] ED Clinical Summary Person Information Name: CUCO CARDENAS Gui Richelle/[facility] Age: 27 Years : 1995 Sex: Female Language: Macedonian PCP: Sherri CHEUNG MD Marital Status: Single [...] 22:37:58 11/04/2022 22:37:58 11/04/2022 22:37:58 ADDRESS: [address] [place] [id number] PHYS DOC NOTES: MEDICAL INFORMATION: Prescriptions Given: New Medications [id number], [address] [place], [place] [phone], [phone] cephalexin (cephalexin 500 mg Cap) 1 Capsules [...] Follow up: With: Address: When: Sherri JONATAN [address] [place] [address] [address], [place] [address] Business (1) In 3 days 11/07/2022 Comments: [...] or worsening symptoms. DIAGNOSIS: Fingertip avulsion Normal [facility] ED Patient Education Noteon 11-05-2022 ED [...] even if your condition improves. ? Take mblw-gss-avhqiqp and prescription medicines only as told by [...] and water are not available, use hand mold maker plastic molds. ? Change your dressing as told by [...] foot a (more content not included)... Normal [facility] ED Patient Summaryon 023 ED Patient Summary (Inserted Image. Marylu ble to display) [place] [id number] Patient Discharge Instructions Person Information Name: CUCO CARDENAS Age: 27 Years Arrival Date: 11/04/2022 21:10:12 Discharge Diagnosis: Fingertip avulsion Primary Care Physician: JONATAN STEINBERG, Sherri Milligan Provider Information Primary Provider: [employer] Compilation Clerk:Bud Parker PA-C The exam and treatment you received in the Emergency Department were for an urgent problem and are not intended as complete care. It is important that you follow up with a doctor, nurse practitioner, or physician?s doctor assistant for ongoing care. If your symptoms [...] Follow-up Instructions: With: Address: When: Sherri CHEUNG [address] [place], [place] [address] [phone] Business (1) In 3 days 11/07/2022 Comments: [...] opioids can be used to help relieve vqrzviei-cr-xwemkj pain and are often prescribed following a [...] ? Safely (more content not included)... Normal [facility] Consent for Treatmenton 10-13 Consent for Treatment [id number]:127 Normal [facility] PAP ACOG PANEL 2: 21 to 29on 05-21-2022 . . Normal [facility] Comment on above: Performed By: #### 4 [id number] #### [facility] [address] [place] [address] Dr. Jewels Looney Age Gdln ACOG Testing - Normal [facility] Comment on above: Performed By: #### 4 [id number] #### [facility] [address] [place] [address] Dr. Jewels Looney DIAGNOSIS: Comment [facility] Comment on above: Result Comment: NEGA TIVE FOR INTRAEPITHELIAL LESION OR MALIGNANCY. Performed By: #### 4 [id number] #### [facility] [address] [place] [address] Dr. Jewels Looney Methodology: Comment [facility] Comment on above: Result Comment: This liquid based ThinPrep(R) pap test was screened with the use of an image guided system. Performed By: #### 4 [id number] #### [facility] [address] [place] [address] Dr. Jewels Looney Note: Comment [facility] Comment on above: Result Comment: The Pap smear is a screening test designed to aid in the detection of premalignant and malignant conditions of the uterine cervix. It is not a diagnostic procedure and should not be used as the sole means of detecting cervical cancer. Both false-positive and false-negative reports do occur. . Performed By: #### 4 [id number] #### [facility] [address] [place] [address] Dr. Jewels Looney Performed by: Comment Normal [facility] Comment on above: Result Comment: Rosita Haines, Business Manager (ASCP) Performed By: #### 4 [id number] #### [facility] [address] [place] [address] Dr. Jewels Looney Reflex Criteria: Comment [facility] Comment on above: Result Comment: The HPV DNA reflex criteria were not met with this specimen result therefore, no HPV testing was performed. . Performed By: #### 4 [id number] #### [facility] [address] [place] [address] Dr. Jewels Looney Specimen adequacy: Comment Normal [facility] Comment on above: Result Comment: Sati sfactory for evaluation. Endocervical and/or squamous metaplastic cells (endocervical component) are present. Performed By: #### 4 [id number] #### [facility] [address] [place], [place] [address] Dr. Jewels Looney Reminderson 01-19-2022 Reminders - From: Hayes Moura MD To: [facility] - Clinical; Sent: 01/16/2022 15:19:01 [...] and declines any questions or concerns. Normal [facility] Coding Summary.on 12-31-2021 Coding Summary. CD:[id number] Gh0bWw +PGhlYWQ+BX3KVEUnS71ngUZhf I5PS7pDBJ0XNTBNGIRDVB4HFE6 ezXW3NVmwO2VvobUb UrpnbZXbSB23GYv0ADU0jEwdIA gcgT2tcUFsF5m5CoIvTZ49fC33 CKjuFXXoMuL4JnJmeewxzGSq N8joSpDibAEvEpb+PHRhYmxlIH cpFYSyQHjrGNUaByVutXtgSP3u Pj7vVVEbJKWnuPkuzXMcVyAf q9inXULiIMejSS3yjUaeW4IbuU P9XIIna2w1Tp70dED+PHRkIHN0 mHxbTWzei916RsTrx2wgKAA5 dYHlRIrzUPR3N17ky6H9VWUaEP IkCSE5cCJ2gC0zqTgdubecM5Xh zNJeLnJ0OFH3uRUctD3syOjh yqlgpO7mBok+E34QWU1LNNTZHB 6DYek5W1AnHvstnZB+ZA32XGJg HJ32yCYwbJSag6jenCg0AjRo DNSlLHL6oPsyYTdnz9HdYBCzW8 7weSSfd0H2GFAogDkllFUqXuZe bHA6aE9eKCpujdfod7rfbrex Hufkq2coep72rL26F99xSClxEF IzATU5POZvOKGkeEmwxf7kbI5r Ii8+DVdik3feq9ughHp0IvBq TSGrlbMvySulXLN1b4NeSs19Y2 GafQhda4XePvd3pt48wELuu4P9 sRK1DAfiXWGpjG1pLJtzYkB1 SEJvErDlrE88vPZcJEapAa9uuV mdyKbySC6wOYEcrgypORJliY7s YKGluJNdoDlrKC3uMJSqaqwh n132PsEdYZN8LQIlwMLuU8VecJ 1eKmZzCIZePNUwB6HdpUOgSRnu F700YRfbIrJ6NBDejlZcG0Py OUBceXlwIxX0v8K4Vu4Vz5Depe lpGHY4UXueYACdWcOrPoBuQxH5 X9FaZoa4TFOraWdcRP1uR0Ir DZLfgpppphrjgCH2CIJlKYTwjU 71qOZoCGttSv9rx2I4u959WKSt EVOqdU39Wh9ggXglOYNtbAVW dD9bwqbhh4zoztzmFmJzWYFnRP p9PLn8JSKskXqhZtJqSVP8YyH9 LRQ5iNGuaI3wgRvnwenltW6b Oyc+D40czJ6oZVU8JTY6mrneAU PjcrMoHB74FS67B2BhZdunlWHr bGU+GYTbghMoeOntLG5eNmAl q0mmc3KiMHzrQ8HvFAQgXSpoDp l7GVBhFRE0nCR9wL1oMLTqEXcl k4C1gXZ3W9MhdyVrgv6db9px CCKdINheC60doDZzg7J7IYYoqJ F7PWAoqFfyNqXaeH37Ubq+PGNv eJoht3FlLzenb6ubl4czcZk9 YbWuEEKrrfUtpTcaWRE0r6LjTe 53M20vKQhyHWIpVUPaXIRkEKUa wJrumc1rfB9vCc3+PGNvbCB3 vRA5rF4rORFbUvS1RKfvH384Ek ZiaOKuZmvjk6jqe3wwcAt3YoRn MYHruzFtvZrbRUR4q8ZlBa60 Y12xHXefJYNqPLXdXCWzSIJobW qpqj1smR6hGk6+ER7sf2doro63 mP88xRX+XVOeETL6zQyuWUvy LRZcbH5uGNznLfG7ZQMmQnGapP 54eDAgCNofWq4qwDusqBphXT5d VUBuuzvhn512CvIlx4hkLBZb wYAkDKhvNLK3R84pq5I6NRTnNY SzHLK1eKQ1kE4teKgauxtyhRGh sQacvbXbwVuyEHzqBWlrY475 IHRvcDsnPlBhdGllbnQgTmFtZT v8P0ArYxt1PSNcqYagUK8rvSAs KZtpPf3sgLxplEgfAP2nKOWs xbhdo734ElWbz9muRHZoaBMjKY rtXLO2N94nr4F5HLXaAJTfNVY6 oYR7rU7zeRtlrhoinDTxrCvq fxViwUauJEccROhsJ892PYWmzI svEtHowtHoRBTpzWM0FF74RK46 zPHrv3S1sUZ4Y8JtNCWukdjx wppwfUH7TOVgHWUegI42Lo1grU vuUa6aIKRtRZD0GPJriDCwO6Vk fR6aSgCcXSDqKGWjZ2UwaTXn VRjkX283ZVjxTgW1VMAbckVcO5 IfIJUzwJcbWxH6k5S3Dp4BH1L8 PC29QC17pOArk0N5rKQ3M0Dp TDMfokjszosnbFM2MEUvRLLikF 05Iv1hzBneHq8qCXWjDRV8TGXs bELjE8YwmO5uHpOiQZNhIYMa M9SjvPKxFByzZ014MQdxZmG7VE GdygMgM9GcRBClgOcrAhK7y5I7 Us3CUHq1VU29GZ40bKBhp5D3 tGE8R8HiLXZrzejhslkymBN4JR WyMWSujJ92Vm3udVckGf5nGAEa FIN4ZVBneRHzV5FjgW4eOnDf VCYdUFPdF2IjjYCtDNvwL993FS ebYzU7YSLutmBeH0YeNLDncMry EgD4d7R0Jq7RDLUtEM67WDO5 mJW2HH25KG11K1UcSucfaPGkvT U+PHRhYmxlIHdpZHRoPScxMDAl QgNwwCelJF8lHd6yYIHtQRVs qSsdoIXpFgDsg7koZYJrUPzsTU 5nfFtpD5MomLA7MKPjt7d1Fz26 K73nO8YviPP+SEVptLR0iKC7 mJ4qTiRrRwW6KBkjA595GbDbqN VfSumac8vbp9bliLe4KbO3WULk arFijHmvJHW5h6QpEb33W64c IHdpZHRoPSIxNSUiIHZhbGlnbj 2nyR4oNp4+ABUxsQQ9hNU9dA3d ViZjJvM8EYuqY738RhJwtKHp Jdyth5xqj8zfeOf4BuBlGGHroe ShxDsdQID0c2UwRj44U8LueTiz i3IiDzn8vl40uFArr5V6xDU2 O8ZxRELtjhlzvOFnqAwwTF2bZB IfagrqFTTwnF5nANRjJ1u0AnHb SqZ8GChdV6LibuT6AQMqnWNv DRdzAIN6L26xg0F2MYRnXKXtTI Q5zAQ8bP5vqFvguzbreXPfqPqk jmYgsVtcLZbsYWdpD985YCKl dHggPWWdoI1mJHLpuEDivOayHY 7gVWGrazxzHfXITDYGA18JZTEU X7CQYR9kQsbfdZV+PHRkIHN0 rQvsKEifCQUweN2ySSUqZ0k6Cn LtCdH6MRiwD9DiSIJsjbpjDs14 gZ6pJhUkGxN1PInxS6BdsfT0 KPMjkFUsYZrcURN1R21vm2M5HK UrFHDvXQG0xGG3pO6plPzradyt bGVmdDsgdmVydGljYWwtYWxp J751WUZbbFccKgK7BsKdRcJ1XV F9S5UsUyi7LJSkpOgyHT8qeKPp UEnyYq2ukWbeaOpmEU4tYQLr tnhzMRFneH4aMDDkaYIeiFljUI 9bVAIpskgjt841EyYlTAN9APMd zNMlN1GchN1gJaQxZLUqQPVr O7UdrKWtZAaqI911PWjcLsW5UA FeduSkY2XhIFDfuEgeUyM5v0U7 Rj4qVCABOANpxyukaDH+PHRk RBE8gEjuEZmyEXRnxH4cOGMxY5 a7VjAgHrB8XFzsP0RlTVKxvhzg Fw93bP3fIiKkJvO9YZxiP2Xx ciE4OXTgoPDfDFddYOW5T13iy0 J4UJElFFYzBEH9aEI3sQ4dlVtl bjogbGVmdDsgdmVydGljYWwt OPjfA823OPDriEgxLzDtnCNmHB wvdGQ+CSIiEVD1qMcsGAhgBJZe mN6pJEZdK4t8ZnOdOuO5IVaf P7RaUSGchcguIz37aI4oPmRyMy A5QUiyO5UfihX0OXJjkCWlBQmc YRU1F77ov4K1VXDvYFFgUFL0 fPZ3tP1fxNnmmcihlWBvvVwupm OniOtcWRytRNriP446WKQveKzh JxugDdQMjy4nUQ1kUvyrdTS+ CO71ci15X6TpLqndLmd1WZCpMA S2sUW0fB9gDNPaXDsfa2I1yBL3 X4UzgnYfpm7yq6ooPCDeLMbw M71icCXxa3H0OTZmcVH6EIFzfO avDxMsdD19Uwu+LBSqaUfew1Cb Whlvb6qzb0bbiOf4CyYuQFBn dhCbmNqvNUE8l1UvKf21A15vCK pwLRHvIOQsMKZiQEOisKcrhg9k tW5fDp4+GLZqgBB6dAP6xL4s SyAfRpJ8OAvbS689NaVjiVOlBh ovc3btm5vhkPe5WyMbZGAsjuAh mYemHNT4p9OsMv12J8MjxFkl h7XhQet7up66oAFrm5D7wGI1P2 AcEZNxutmboRUsjDcmOS9wXLBk gnlqPXTowI5sUCPdI9c3KaGf IkS2KZfzE8YrosU1VVZzfYCrAA HyeMGAlI6eiauhf3dwzzyuVcOj VDHgKId2WHk7LCKpiQwgHmXv DUD3XtY5UZK7vULhoY2bwOqznz pozO5pRmx+XAb5a2edeOAjHF5u lDC1IM81PG31eVVgq3Z6gUW6 E2FoZEBmmitbalmkxMD8TONwNJ GyyI90Zh0zwKwiYm2nBRJoSSW6 IDSpxUUiB2VbwR7wTrBpKYOm QCYpC3VqdBTbDNkeU653UXcpXw V8BKKhvxIdB3YrFZLbnZtxYpY0 j4V1Id9VFE79YZ84TR36fZDv t2N3vRE2I8HqFEKvbqxupagtnE J3YSEwSSTwzX81Zp9saXdsDk5x NVTwWQK2XPHewFZgU8EydE7j QzPnEGGtBYXaL8XyvQMnOVgaN6 19MOdlFmU4MHIyxxHrK3VzRHJm zIyiBiF8u0B0Xu9XDj82ZX05 DL26yNFui8X7qCO6J8LzVYDjrh lonfxfpRV0EUUeDGHlqT90Al6u rVobDd1rMSHbNPS5ZPVexZQv T7BdoZ5uXsTkUXTlIEVjG0SuhF DiMDpeY564MFunMzE7PHRdseTg K9DcRAHmkJosSiF6t1U9Jo7H NKcfojb5Q5WzPvcwxMJ+PC90YW DtNB49mBRyeQXpp9fkoHg5GyDt SJLpECE5wIkdKDhgs9SjVKDz Y29s (more content not included)... Normal [facility] Family Medicine Office/Clini c Noteon 12-27-2021 [...] Tobar to record this visit. JEAN CARLOS technical customer support specialist and provider reviewed before signing. Completed by: Rosa Isela Rouse/Angeli Ignacio. Pated by Priyanka Mosley, [employer] Operations Manager. Follow-up No qualifying data available Problem [...] acel/tetanus ad (more content not included)... Normal [facility] Comment on above: Result Comment: Elec tronically Signed By: Hayes Moura MD\.br\Date and Time Signed: 12/27/21 15:46 EST\.br\Electronically Co-Signed By: Priyanka Mosley\.br\Date and Time Co-Signed: 12/26/21 22:49 EST RENETTAOVon 01-02-2017 CNOV Office Visit (AGEXPHUD) CLAUSCUCO ([id number]) 1995 FDate Time Provider Byhjtdsohx63/22/17 2:30 PM FANNY GROSS (DESMOND) AGEXLEONOR During [...] CLAVULANATE 125 MG TABLETKatsylvia Gross, CNPKatsylvia Gross, SPORTS TRAINER 01/02/2017 2:39 PM SignedBP 125/75 Pulse 79 [...] Yes. To reduce yoursymptoms, you can:?Take an oahz-vrw-nfcqwzm pain reliever to reduce the pain?Rinse your [...] 4 - HivesDate Reviewed: 01/02/2017Reviewed by: Fanny ([facility]) Renato - Fully AssessedReason for Visit: [...] MG-POTASSIUM CLAVULANATE 125 MG TABLET Fanny Gross, [facility] Patient education: Sinusitis in adults (The [...] reduce your symptoms, you can: ?Take an svgo-gmg-nybpdpk pain reliever to reduce the pain ?Rinse [...] with your doctor This topic retrieved from [facility] Patient education: Rinsing out your nose [...] ?A pulsating irrigation device (sample brand names: raksul HydroPulse, [employer] Sinusense Water Pulsator) ? These are battery-powered [...] out your nose. This topic retrieved from [employer] ordered this encounter Disp Refills Start End AMOXICILLIN 875 MG-POTASSIUM CLAVULA* 20 t* 0 01/02/2017 01/12/2017 Route: ORAL Sig: Take 1 tablet by mouth every 12 hours for 10 days.Disposition: Return if symptoms worsen or fail to improve.Follow-up and Disposition History RecordedEncounter Number: [id number] Status:Closed by FANNY GROSS CNP on 01/02/17 [facility] PROGRESSon 01-02-2017 PROGRESS HNO ID: [id number] thor: Fanny (Desmond) Arleyervice: (none)Author Type: Nurse [...] Center CNOVon 11-12-2016 CNOV Office Visit (AGEXPHUD) CLAUSCUCO TEE ([id number]) 1995 FDate Time Provider Dbakhaqazu96/2/17 8:15 AM FANNY GROSS (DESMOND) AGEXPHDANAY During [...] too much?Breathing in harsh chemicals, such as belt loop maker or gasoline?Drinking too much alcohol or smoking [...] Other causes of laryngitis are treated on eubex-ut-eydi basis.-Voice rest is used for acute laryngitis, [...] Laryngitis, acute [J04.0]Order(s):ALERE STREP A TEST (AG) [0878595] Order #: [id number] THROAT CULTURE [SQTHRCUL] Order #: [id number] FUTURE lidocaine viscous (LIDOCAINE VISCOUS) 2 % [...] much ?Breathing in harsh chemicals, such as belt loop maker or gasoline ?Drinking too much alcohol or [...] causes of laryngitis are treated on a pahr-np-dwvw basis. -Voice rest is used for acute [...] to do for your baby. Retrieved from [employer] ordered this encounter Disp Refills Start End LIDOCAINE 2 % MUCOSAL SOLUTION 100 * 0 11/12/2016 Route: ORAL Sig: Take 5 mL by mouth four times daily as needed for Pain (swish and spit, do NOT swallow).Disposition: Return if symptoms worsen or fail to improve.Follow-up and Disposition History RecordedEncounter Number: [id number] Status:Closed by FANNY GROSS CNP on 11/12/16 [facility] PROGRESSon 11-12-2016 PROGRESS HNO ID: [id number] thor: Fanny (Desmond) Arleyervice: (none)Author Type: Nurse [...] ICD10: J04.0- Written educational material givenDESMOND Higginbotham [facility] Throat Cultureon 11-12-2016 Throat Culture Test performed at [facility] No group A beta streptococci cultured. Normal [facility] Comment on above: Performed By: #### C THRT ####[facility] [place] [id number] Vital Signs Date Time Vital Sign Value Performing Clinician Facility 03-14-2023 09:31-0500 Body mass index (BMI) [Ratio] 31.17 kg/m2 Cheyenne Bj DO Work Phone: [facility] 03-14-2023 09:31-0500 Body weight 92.99 kg Cheyenne Bj DO Work Phone: [facility] 03-14-2023 09:31-0500 Diastolic blood pressure 66 mm[Hg] Cheyenne Bj DO Work Phone: [facility] 03-14-2023 09:31-0500 Systolic blood pressure 130 mm[Hg] Cheyenne Bj DO Work Phone: [facility] 12-26-2021 13:47-0500 Blood Pressure Location Hayes Gudimella [facility] 12-26-2021 13:47-0500 Body temperature 96.8 [degF] Hayes Gudimella [facility] 12-26-2021 13:47-0500 Diastolic blood pressure 72 mm[Hg] Hayes Gudimella [facility] 12-26-2021 13:47-0500 Heart rate 67 /min Hayes Gudimella [facility] 12-26-2021 13:47-0500 Respiratory rate 16 /min Hayes Gudimella [facility] 12-26-2021 13:47-0500 SaO2% (BldA) [Mass fraction] 98 % Hayes Gudimella [facility] 12-26-2021 13:47-0500 Systolic blood pressure 112 mm[Hg] Hayes Moura [facility] Encounters Encounter Date Encounter Type Care Provider [...] End: 12-26-2021 Lab Drop off Hayes Moura [facility] Start: 12-26-2021 End: 12-26-2021 Patient encounter procedure Hayes Moura [facility] Start: 11-12-2016 End: 11-13-2016 Ambulatory FANNY (SPORTS TRAINER) [facility] Start: 11-12-2016 End: 11-12-2016 Ambulatory FANNY (SPORTS TRAINER) [facility] Procedures Date Procedure Procedure Detail Performing Clinician Start: 03-14-2023 Urnls dip stick/tabl et rgnt non-auto w/o micrscp Cheyenne Bj DO Work Phone: Start: 02-11-1998 Adenoid excision Hayes Gudimella Plan of Treatment Date Care Activity Detail Author Start: 04-04-2023 End: 04-04-2023 Patient encounter procedure 04/04/2023 9:10 AM EST Routine [facility] [address] [address] Pretty Vivas PA [address] [place] [address] [facility] Start: 10-12-2022 Influenza vaccination Influenza Vacc ine (#1) [facility] Immunizations Immunization Date Immunization Notes Care Provider Fa cility 04-16-2020 SARS-CoV-2 (COVID-19 ) [id number] vaccine Hayes Gudimella [facility] 01-12-2020 influenza virus vaccine, unspecified formulation Cheyenne Alvao DO Work Phone: [facility] 11-16-2019 influenza, injectable, quadrivalent, contains preservative Hayes Gudimella [facility] 08-28-2019 tetanus toxoid, reduced diphtheria toxoid, and acellular pertussis vaccine, adsorbed Hayes Gudimella [facility] NEGATED: Highlighted row has not occurred!12-26-2021 influenza virus vaccine, unspecified formulation Hayes Gudimella [facility] [place] Payers Date Payer Category Payer Unknown BCBS BCBS [id number] [id number] 2021-Present [phone] [address] [place] [address] [id number] 1993 Unknown [id number] 2.16.840.1.047940.3.579.2.593 1993 Unknown [id number] 2.16.840.1.207714.3.579.2.727 1993 Unknown [id number] 2.16.840.1.756150.3.579.2.727 1993 Unknown [id number] 2.16.840.1.540090.3.579.2.727 1993 Unknown [id number] 2.16.840.1.181320.3.579.2.727 1993 Unknown [id number] 2.16.840.1.099815.3.579.2.1259 1993 Unknown [id number] 2.16.840.1.743656.3.579.2.1259 1993 Unknown [id number] 2.16.840.1.299130.3.579.2.1259 1993 Unknown [id number] 2.16.840.1.603901.3.579.2.1259 1993 Unknown [id number] 2.16.840.1.896168.3.579.2.1259 1993 Unknown [id number] 2.16.840.1.739777.3.579.2.1259 1993 Unknown [id number] 2.16.840.1.042680.3.579.2.1259 1993 Unknown [id number] 2.16.840.1.000073.3.579.2.1259 1959 Unknown [id number] Unknown [id number] Social History Date Type Detail Facility Start: 12-26-2021 Tobacco smoking status Ex-smoker (finding) [facility] Comment on above: denies denies Tobacco smoking status Never [facility] Comment on above: denies denies Sex Assigned At Female [facility] Tobacco smoking status NHIS Tobacco smoking consumption unknown [facility] Start: 10-05-2022 [facility] Start: 1995 Sex Assigned At Not on file [facility] Functional Status Date Assessment Result Facility 12-26-2021 Functional Status N/A [facility] History of Present illness Narrative 03-14-2023 Priscilla [...] nursing note reviewed. 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 Vitals: Estimated body mass index is [...] Cheyenne Lorenzo DO documented in this encounter [facility] Clinical Note 01-19-2022 Note Date & [...] was performed at: [facility], [address] [place] [address], [id number] , [place], [facility] Comment on above: Performed By: #### [id number] #### [facility] [address] [place] [id number] Clinical Note 12-29-2021 Note Date & Type [...] was performed at: [facility], [address] [place] [address], [id number]- , , [facility] Comment on above: Performed By: #### [id number] #### [facility] [address] [place] [id number] Evaluation + Plan note 12-26-2021 Note Date & Type Note Facility 12-26-2021 Evaluation + Plan note Diagnostic Tests PendingFluid Culture 12/26/21 [facility] Evaluation + Plan note Note Date & Type Note Facility Evaluation + Plan note No data available for this section [facility] Evaluation note Note Date & Type Note Facility Evaluation note Diagnosis Second trimester state, incidental documented in this encounter [facility] Discharge instructions Note Date & Type Note Facility Hospital Discharge instructions No data available for this section [facility] Progress note Note Date & Type Note Facility Progress note No data available for this section [facility] Summary Purpose Family History No Family History Records FoundNo Family History Records FoundNo Family History Records FoundNo Family History Records FoundNo Family History Records Found Advance Directives No Advanced Directives Records FoundNo Advanced Directives Records FoundNo Advanced Directives Records FoundNo Advanced Directives Records FoundNo Advanced Directives Records Found Additional Source Comments INFORMATION SOURCE (unrecogn ized section and content) DATE CREATED AUTHOR 08/06/2017 [facility] DATE CREATED AUTHOR AUTHOR'S ORGANIZ ATION 08/17/2017 [facility] DATE CREATED AUTHOR AUTHOR'S ORGANIZ ATION 05/21/2022 [facility] DATE CREATED AUTHOR AUTHOR'S ORGANIZ ATION 11/16/2022 [facility] DATE CREATED AUTHOR AUTHOR'S ORGANIZ ATION 05/30/2023 [facility] EPIC Patient Care team informatio n (unrecognized section and content) 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 [facility]. provides no warranty or guarantee of the accuracy or completeness of information in this document.
[2023-06-04 19:08] VITALS: BP 126/87; PULSE 87; TEMP 35.9
--- NOTE | 2023-06-04 19:39 | US_ITS ---
[address] [address] Patient Name: CUCO THOMAS MRN: [id number] date: 1995 Sex: F Assigned Patient Location: [facility] Current Patient Location: Accession/Order Number: [id number] Exam Date: 06/04/2023 19:43 Report Date: 06/05/2023 07:07 At the request of: CHEYENNE WHITT Procedure: US OB BPP w non-stress EXAMINATION: US OB BPP w non-stress HISTORY: oligohydramnios COMPARISON: Ultrasound OB biophysical 05/28/2023 TECHNIQUE: Ultrasound biophysical profile was performed in the radiology department. BREATHING MOVEMENTS: 2.0 GROSS BODY MOVEMENTS: 2.0 TONE: 2.0 QUALITATIVE AMNIOTIC FLUID VOLUME: 2.0 PRESENTATION: CEPHALIC HEART RATE: 142.1 bpm bpm. AMNIOTIC FLUID VOLUME: 15.3 cm GESTATIONAL AGE: 36 weeks 4 days CONCLUSION: Total biophysical profile score 8.0. Electronically authenticated by: BRITTANIE RAMOS Date: 06/05/2023 07:07
== END 2023-06-04 20:15 | disposition home or self-care (01) ==
LOC: US 07:08 → FBC 19:02
PROVIDERS: Visit Provider Obstetrics & Gynecology
DX: O36.63X0 Maternal care for excessive fetal growth, third trimester, not applicable or unspecified (principal); Z3A.36 36 weeks gestation of pregnancy
CPT/HCPCS: 76818

== ENCOUNTER 2023-06-12 11:01 | Outpatient (OUT) | payer BC, SELFPAY ==
--- NOTE | 2023-06-12 11:04 | US_ITS ---
[address] [address] Patient Name: CUCO THOMAS MRN: [id number] date: 1995 Sex: F Assigned Patient Location: [facility] Current Patient Location: [facility] Accession/Order Number: [id number] Exam Date: 06/12/2023 11:04 Report Date: 06/12/2023 11:31 At the request of: CHEYENNE WHITT Procedure: US OB growth EXAMINATION: US OB growth HISTORY: LGA COMPARISON: 05/01/2023 FINDINGS: Heart Rate: 132.0 bpm Amniotic Fluid Volume: 12.7 cm Number: 1.0 Position: Cephalic presentation, longitudinal lie Maximum Vertical Pocket: 4.4 cm cm 2.5 cm cm 3.0 cm cm 2.9 cm cm BIOMETRY: BPD: 9.2 cm cm; 37 weeks 3 days; 62% HC: 32.8 cmcm; 37 weeks 2 days , 19% AC: 36.4 cm cm; 40 weeks 2 days, greater than 97% FL: 7.7 cm cm; 39 weeks 2 days; 85.1 % % EFW: 3745.6 grams, 8 lbs. 4 oz., 92% FL/AC: 21.1 FL/BPD: 83.4 HC/AC: 0.9 GESTATIONAL AGE: Age by EDC: 37 weeks 5 days RAKEL by EDC: 06/28/2023 Age by US: 38 weeks 4 days RAKEL by US: 06/22/2023 US/US OB growth IMPRESSION: Abdominal circumference greater than the 97th percentile Estimated weight at the 92nd percentile Electronically authenticated by: STORM ROSE Date: 06/12/2023 11:31
== END 2023-06-12 11:02 | disposition home or self-care (01) ==
LOC: NOMS 11:02
PROVIDERS: Visit Provider Obstetrics & Gynecology
DX: O36.63X0 Maternal care for excessive fetal growth, third trimester, not applicable or unspecified (principal); Z3A.38 38 weeks gestation of pregnancy
CPT/HCPCS: 76816

== ENCOUNTER 2023-06-20 23:02 | Inpatient (IN) | payer BC, SELFPAY ==
--- OUTSIDE RECORDS SUMMARY | 2023-06-20 23:08 | XMS_ITS | CCD ---
Author Organization [facility] Care Team Providers Care Loss Prevention Manager Name Role Phone MOSNEAG FANNY (INTEGRATION ARCHITECT) Unavailable Unavailab le MOSNEAG, FANNY (INTEGRATION ARCHITECT) Unavailable Unavailab le IMCA Unavailable Unavailable RENATO, FANNY E Unavailable Unavailable Sherri CHEUNG Primary Care Physician PRETTY MCGRAW Admitting Unavailable PRETTY MCGRAW Attending Unavailable [facility] Ferrari Primary Care Unavailable PRETTY MCGRAW Consulting Unavailable MD Zeny Hayes Attending Unavailable MD Zeny Hayes Admitting Unavailable Goreg Castro Attending Unavailable MD Zeny Hayes Attending Unavailable MD Zeny Hayes Attending Unavailable MD Zeny Hayes Admitting Unavailable Jessica STEINBERG, [facility] Primary Care Provider [phone] PRETTY VIVAS Attending Unavailable BJ, CHEYENNE Attending Unavailable PRETTY VIVAS Attending Unavailable BJ, CHEYENNE Attending Unavailable BJ, CHEYENNE Attending Unavailable BJ, CHEYENNE Attending Unavailable BJ, CHEYENNE Attending Unavailable RPETTY VIVAS Attending Unavailable BJ, CHEYENNE Attending Unavailable BJ, CHEYENNE Attending Unavailable Allergies Allergy Classification Reported Allergen(s) Allergy Type Date of Onset Reaction(s) Facility (2 sources) Sulfonamides (Antibiotic); Translations: [SULFA (SULFONAMIDE ANTIBIOTICS)] Propensity to adverse reactions to drug (disorder) 7 AOF [facility] Other [place] [facility] (7 sources) Sulfonamides (Antibiotic); Translations: [sulfa drugs] Drug allergy [facility] (1 source) Sulfonamides (Antibiotic) Drug allergy (disorder) [facility] (1 source) Sulfonamides (Antibiotic) Drug Allergy 3 Unknown [facility] Medications Current Medications Medication Drug Class(es) Dates Sig (Normalized) Sig (Original) clotrimazole mg/ml topical cream (6 sources) Azole Antifungal Start: 12-26-2021 clotrimazole Top 1% Crm 1 lenin, Topical, BID, 24 gram, Refill(s) 0, [id number], 175, cm, 12/26/21 13:50:00 EST, Height/Length Dosing, [...] UA Negative Negative - 4(70) +++ mg/dL [facility] Work Phone: Blood, UA Negative Negative - 50 Jarrett/mcL [facility] Work Phone: Clarity, UA Clear [facility] Work Phone: Color, UA Yellow [facility] Work Phone: Glucose, UA Positive Negative - 1999(110) ++++ mg/dL [facility] Work Phone: Comment on above: 100 Interpretation and review of laboratory results Abnormal [facility] Work Phone: Ketones, UA Negative Negative - 160(16) ++++ mg/dL [facility] Work Phone: Leukocytes, UA Moderate Negative - 500+++ Brooke/mcL [facility] Work Phone: Nitrite, UA Negative Negative - Positive [facility] Work Phone: pH, UA 7.0 5 - 9 [facility] Work Phone: Protein, UA Negative Negative - 2000(20) ++++ mg/dL [facility] Work Phone: Spec Grav, UA 1.010 1 - 1.03 [facility] Work Phone: Urobilinogen, UA 0.2 0.2 - 12 mg/dL [facility] Work Phone: [facility] Work Phone: ED Note-Physicianon 11-12-19 ED [...] day(s), # 14 cap(s), Refills(s) 0, [id number], 173, cm, 11/04/22 21:16:00 EDT, Height/Length Dosing, 90.6, kg, 11/04/22 21:16:00 EDT, Weight Dosing Disposition Plan Patient Discharge Condition Stable Discharge Disposition To home Discharge Prescription List Prescriptions cephalexin 500 mg Cap, 500 mg= 1 cap(s), Oral, q12hr Follow-up With When Contact Information Sherri CHEUNG In 3 days 11/07/2022 EDT [facility] [address] [place] [address]- Business (1) Additional Instructions: Call the office [...] Patient seen and evaluated by the physician optometric assistant. Attending physician was present in the emergency department and supervised care. This visit was performed by both the physician and an APC. I performed all aspects of the MDM as documented. This report was transcribed using voice recognition software. Every effort was made to ensure accuracy, however, inadvertently computerized pressure testing technician mistakes may be present. Appropriate healthcare PPE was used in evaluating this patient. The patient was placed in a mask. The healthcare provider was wearing mask, gloves, and util (more content not included)... Normal [facility] Comment on above: Result Comment: Elec tronically Signed By: Bdu Parker PA-C\.br\Date and Time Signed: 11/04/22 22:25 EDT\.br\Electronically Co-Signed By: Gorge Castro MD\.br\Date and Time Co-Signed: 11/11/22 20:46 EDT Discharge Instructionson Discharge Instructions [id number]:12 7 Normal [facility] ED Clinical Summaryon 2022 ED Clinical Summary [place] [id number] ED Clinical Summary Person Information Name: WILLIAM CUCO Peoples[facility] Age: 27 Years : 1995 Sex: Female [...] 11/04/2022 22:37:58 11/04/2022 22:37:58 11/04/2022 22:37:58 ADDRESS: [address] [place] [id number] PHYS DOC NOTES: MEDICAL INFORMATION: Prescriptions Given: New Medications [id number], [address] [place], [place] [id number], [phone] cephalexin (cephalexin 500 mg Cap) 1 Capsules [...] Follow up: With: Address: When: Sherri CHEUNG [address] [place], [place] [address]BOX [address] [phone] Business (1) In 3 days 11/07/2022 Comments: [...] symptoms. DIAGNOSIS: Fingertip avulsion Normal [facility] ED Patient Education Noteon 11-05-2022 ED [...] even if your condition improves. ? Take mecz-vzk-lqptcpu and prescription medicines only as told by [...] and water are not available, use hand sequins winder. ? Change your dressing as told by [...] (more content not included)... Normal [facility] ED Patient Summaryon 023 ED Patient Summary (Inserted Image. Marylu ble to display) [address] [address] Patient Discharge Instructions Person Information Name: CUCO CARDENAS Age: 27 Years Arrival Date: 11/04/2022 21:10:12 Discharge Diagnosis: Fingertip avulsion Primary Care Physician: JONATAN STEINBERGSherri Provider Information Primary Provider: Advanced Cutter Operator Asbestos Shingle:Bud Parker PA-C The exam and treatment you received in the Emergency Department were for an urgent problem and are not intended as complete care. It is important that you follow up with a doctor, nurse practitioner, or physician?s optometric assistant for ongoing care. If your symptoms [...] Instructions: With: Address: When: Sherri CHEUNG [address] [place] [address] [address] [phone] Business (1) In 3 days 11/07/2022 Comments: [...] opioids can be used to help relieve nsnmrhht-jj-kjwbps pain and are often prescribed following a [...] (more content not included)... Normal [facility] Consent for Treatmenton 10-13 Consent for Treatment [id number]:127 Normal [facility] PAP ACOG PANEL 2: 21 to 29on 05-21-2022 . . Normal [facility] Comment on above: Performed By: #### 4 [id number] #### [facility] [address] [place] [address] Dr. Jewels Looney Age Gdln ACOG Testing 21-29 Normal [facility] Comment on above: Performed By: #### 4 [id number] #### [facility] [address] [place] [address] Dr. Jewels Looney DIAGNOSIS: Comment [facility] Comment on above: Result Comment: NEGA TIVE FOR INTRAEPITHELIAL LESION OR MALIGNANCY. Performed By: #### 4 [id number] #### [facility] [address] [place] [address] Dr. Jewels Looney Methodology: Comment [facility] Comment on above: Result Comment: This liquid based ThinPrep(R) pap test was screened with the use of an image guided system. Performed By: #### 4 [id number] #### [facility] [address] [place] [address] Dr. Jewels Looney Note: Comment [facility] Comment on above: Result Comment: The Pap smear is a screening test designed to aid in the detection of premalignant and malignant conditions of the uterine cervix. It is not a diagnostic procedure and should not be used as the sole means of detecting cervical cancer. Both false-positive and false-negative reports do occur. . Performed By: #### 4 [id number] #### [facility] [address] [place] [address] Dr. Jewels Looney Performed by: Comment Normal [facility] Comment on above: Result Comment: Rosita Haines, Director Of Occupational Therapy (ASCP) Performed By: #### 4 [id number] #### [facility] [address] [place] [address] Dr. Jewels Looney Reflex Criteria: Comment [facility] Comment on above: Result Comment: The HPV DNA reflex criteria were not met with this specimen result therefore, no HPV testing was performed. . Performed By: #### 4 [id number] #### [facility] [address] [place] [address] Dr. Jewels Looney Specimen adequacy: Comment Normal [facility] Comment on above: Result Comment: Sati sfactory for evaluation. Endocervical and/or squamous metaplastic cells (endocervical component) are present. Performed By: #### 4 [id number] #### [facility] [address] [place] [address] Dr. Jewels Looney Reminderson 01-19-2022 Reminders - From: Hayes Moura MD To: [facility] - Clinical; Sent: 01/16/2022 15:19:01 EST Show [...] any questions or concerns. Normal [facility] Coding Summary.on 12-31-2021 Coding Summary. CD:[id number] Gh0bWw +PGhlYWQ+NM7EOONsN18ncULki B8UE6oORL9FDJKZMVIYUX0WBU6 okXJ2ELotR1AsyiVz HkfjzBFqJF10FOw2HTD0jZjkGU wpsI9ohCYaT3k6EdRpYM28mZ84 FOiwJQKbWhW6VaQqtmcdsBJm W0beGgWneDPhZpa+PHRhYmxlIH wkQPWcGFusZZHvVzQiuSciIV5n Hb4iJSPlFWOmvIzkuAAtFgWl n3mlOWFrJAiqPP4rpOrdD3SseF Q8YXNlu5u4Ym66oJK+PHRkIHN0 cAylHFmcx929HeAqv2gtIBU2 qFFqZEjbYOJ6I31mc5N0ENTkPC CbYAL6qID4dV7exKwdmyaqY3Dm xDCxCaY4RLK4rYXjeT1ppLyl kirxdF9cKuv+U93LXD7DXMKNKF 0UCdi9X4MbYxxesBF+NN09NGVx OA68nFYhdMIem3dhdHy2HuOr QBNaBYZ2xVonIUfmz3YmKLBrW5 5stKAjw4Y5BZBczCxkwNDqFhCx qQO7wE1cQVxsvsuuv3ulkhbu Ontbc2yirz43uU21N42vMJxbFC GkGTG7IQWwFDXtnYyhls2rqI2l Ii8+PTtuu7znm8evbDt7UiUn SFIykfIuhLkeKRM5p5RaAs99M8 ApiIwtr3KxOpf1as41dYQqx9I2 lGN6BBtpICQevR1iUMulVgF9 XBLkNfDgeC88nQTlYHcuPk5vrH pubLetAJ1pUPRbcfwdDMCpuO5b SHTcuQQroIikBM7dLMQluozc f293ZcYjOBF5ZXZskUMxF6LehG 5xGwNmQGNtGKZyH4MaqGByBWwd Z121LEjzIaY0OTZfyqOkG0Wj LZVisDrjDjQ6x7H7Up4Ok4Bufv nrVWK5BWlaFABqPuXqPaLnUiL2 P2EqXej3QUZnpNqzKM4aN8Is OXSfnfuopkvaaSM7LNEaFOFmsQ 10xEVuVPlkXh0ae5P9o660RZSe TVJpyU60Vy5ctEvhELIalHKR iF1tnrljx8oaovjhZgYrVCGhWL e8FLv6NYHvfCrdRlUbXYM2LcR7 EPF1zXCluS8sbCizygatgD9c Oyc+I69qsT8bZTI8WWW4illnQU WzybAqAK11AL73J6GuHxuoeIDv bGU+MSIqcsTyzSmqJF5mLxFa n4jli1QwFIujW8OlJEMjGDtjHt j8JCMpFKD0iQA9kO5hSIQnEOoj l1F5rJY4O5CcmcPhbn5es3ac VYWfYNzlZ73rcRSgf3L1LAUmmO C7PZVzbDbeXaWvoZ03Qqc+PGNv rFqrz1XgRgzbi8ksb2gpxMn9 XvEhUJKauzRqcNrxLBK1l2AjVs 74M17lKAtoJOBqXZUjUPIoKNWm zKdrqc1koQ3gQy7+PGNvbCB3 hQR0dI4xZXJsAjN3XNogV301Lb KcmOAfOmdtk2dsj0epfFq2EhBj HDJrjqUtuOcrQBY0o9XbTb52 K03dVXsyZCAlPLDhMBZnTOSfqA oulx4keE8yUz9+VJ6bt9rfyp97 lH34nFY+JXPaRAS6dCzcSSsp KAHrwQ6aSPvlLcH6UYIcXiUepI 43hCPzGSwnKf2lhConqQekUW7j MDYgvupsq019VtKff8rwFPJe aVCqKYazZIX2S25te0Z4QDQmFG JvAGH2fBH1xG7giCmoyljzyWMk kNemqcQjjPgsOQopWFolW949 IHRvcDsnPlBhdGllbnQgTmFtZT l6L2MlLtg8EQEicTcrPH7wrVJf AUqsJu6izCavuCclLW9oJPEy hvrfo132LqOuy3dpICHziAWlLB wyNOW7O86oc2U9LNGlCJKgKBV2 fGN5nG7nmItdxlrqjDNdvEyr bgLurQumETlzETvmR515ISYjpT kyGqJlkeVqDEZpdVT8VB65GY04 hCKfn1Z6pXV8B0IpUGUeckug dqyzqHK0NAFgDCVsaS68Od6fwB jlVg2tTIOzVXE7OHMnmYFlB9Gh kO2hMuNxSIQhSQBaE8BqqWYb MSykG665NItmJtB0RWCrlsCpT6 MrINZfjBkfMgL1v1Q0Es3IK0V7 VP00NL61aJCgt5M5mUX9C6Nb CHBlftohpomuqJB1ZRXtLUYboV 96Uy0dwYheXp0iEXJtMMF4GDFi uSJgG9SdhQ9dFcBiNFRuEKLh J0MosPLwTUgjE152WEidCgA4UQ LtcxYzO9HaBNPznTlnCtA3q8I1 Mj6UXTe7TE72UX04lYRnn5X5 vRJ6Q4HlRMNyabooznbkhKI4BG FnKTCpiN93Kd9rcXceUu2gFDBr JXB5MDYdyRUrW5XkuI1oIxNe EFJsYJNrO3UypECrQGyqO810TM ypRgW3SQEnpsHfA5RsLAXwvHdq AjA9b2P9Tj6BSDMwSV63VGC8 rCR1WH19QP15W1WzVcgdeMQgwI U+PHRhYmxlIHdpZHRoPScxMDAl IkPhrBoqWO1zUg2sYKNeLOBd xPzbsBOwZaDig6kiYANlRZdfMA 7onRzpK9OqwGN3DGOxd9k4Lu48 D23gF0PpaGD+ZNJwbWF1lBL8 zZ4uFmBeQbZ8TVuyC543OkDwsR HcItjmt6qvh6bxoZw7NpH0BPVo tuDklCspAZE0q6FtGg68E53s IHdpZHRoPSIxNSUiIHZhbGlnbj 4vuB5uCx4+NIPlpDR0dGI1sV6o JyPhYhF1XWphQ679DqAdbYAe Rhjpj2sme6iwxPe8LoWoHKFnjb VqqEidTHQ5e6AeYa83Z7SefShh h0TlTmo8pz35uHQkg8F1gGW0 G9JvXPDatdhepAXstEuxBU2lCN KnnxmwBMXfqT9iOWSrS3h2AwJh BwD2WGyaQ3ZcomB4VDXgnZLc RUglBPH0X42qt4B1MCNsIEEeXL B7kTP3cA1xdVfarhlhpGIpbVhj asBvgAqiESvlNTnrA234OGYl uFduXCBidA4iRRNycAAmsQbeBP 0lGJIvdtryDbQTDBMZG04LVXSB D9VEKU0yXafkjHV+PHRkIHN0 tRnnMDnaZJMtcK7sMLCkY9u6Pi TjMbY3DCkrG9TdHVUvwjorFd85 kQ9qUoNeVzI8CBmaC5UmxzN8 YRYpdRVnWCuaXYR4F86ao1F0JX MmTDLhULT9oNJ6aE1suYtuvehd bGVmdDsgdmVydGljYWwtYWxp U572YPQcvDepUcX4FpXrJiY1JE W3I5VqPhw9WPKroCsbVP9bmUJe UAsxXz4uwKgjqNhgNE1rJRPf vimhKEHgqV4oXWKdrUJqeEokFV 0bSHZftinst088ZdSjKJX1ORSe tGThQ5NkuM8wHeLkMREpKZFj E5CibMQzIMnuI934VZbrDvD8LO PvuwTgO3ImFEJqjSunAuX9r1L3 Co0zCFQFSYJrdjtefQW+PHRk IMR1zWhePZldWGQqoM3bSKLaE8 c0JjGvHjD5EEumP2OzXSRmrlsj Fr63hE7fUhXbRsK4WOviN5Ny qyA8ILIqiYGdQIzfIUY0S51hs8 M6LEExJCXdZBJ5vCB8nW9ptAyj bjogbGVmdDsgdmVydGljYWwt GYhyD089QQYoqYtfAhHxcQSgPG wvdGQ+WBJlHKM2sPehVDnoRTOy sX6gGNFeH0z3XbXxXvI8LMgt A3ErQYOnlpmkOt60eL6fHtTdOe J0FLsuM3QjegR5OELivNQuIWxh EAW6K59sp0Q4DSYwHMFdSXP3 mPB9jI9yuApjdzyxcDZoyXutwo CzcXisFZdcNNpqA478RSLzjPwp FviwOkYSsm0cED0tYvmthLM+ VW41kw90O8ZsMzzvKnz0KFWuXW A4bYA4lE2mFALsLDhbm7H2wZY7 G6SqemQxve0zp2deXDBvXQph W78wySBpe5A4TYEloDH5RLRsqW vyPvDcwN05Fsj+RLMhzXfrn6Tz Uhxyh3jdv4weyYd2DjWvIKVk evBytRjkYHY3d6MsOk85E89zYM nhNFWsNHTaLXWxSANraCkcvq3a rV7bOv6+DKIinKU6qMW2uP5l KvUgGmO6RZnxW861EyWizCUnLn lrt9hvh4kxuFo7ZpSlVFUgifLf jSiiEXF4d1JtAi61V6IsvRab i7YtGac2jr35uFFrf0F2yFM5T8 RrPKJvfeivjWGilWteGE0vNQTf bqlgHQHcwN3xEZJeK0k1MqFr QyB8IItaJ9JbdhY5QNIutVEcTZ KhkXOMlW8cuxjzl4hrydqrMgWq MDZoGQn0AMz7FNZvpSujVsLx QLK5IgV9LNZ1jDNwhP9ztRbqxa wdqH7zUlg+MYy0h3dqpCIsRD9v oMS5AS97NJ65uJNtm9J6tKL9 S3RuRNYsifgacjqixZQ3MVPoSV IctB52Rv3toGmsSn9pHZSzBME4 UBTicOGtM1WaqA0uXhTnMBBv ISMcU9LueRPtSPdwI256VLnwZo I8AZVkejPtU1VsKINteSetVjR3 w3Q2Qf3TPN27HH69QA30hWVe g6D5pJZ5P5UxWPYdgftqsnufuX B0ICBhBNCqlE54Rb1xkZsyKl8v ZHIaSKQ2ZGYrpSZeE0ReyI3a PcQpGUYgTBPlD6SopQZrIYggJ4 17PDdjSjN1DEHmpbEuH7SgYBPh mYhfCeI2v5W1Ts9FJn94OF66 VB05fMRpz5W3jVR7F9RaCCDjyx zyyqiawEV5ZBXyIVErzW44Yr1i bAcoVw1yEDAxZMQ5WHOeqMMb T9GxdA1fHaQrBNTwMQNxJ2GrnH WrJQkpX299ZDctYeC8VNUczvQl C5ShSSSqwPveSjC5w7I9Ke2R JJdpxws7G2NcYlmpcJT+PC90YW UwAU66jINbpHTzi8qeiSg6NpPk DIVcHKY8xRozQNjdp6VfAVSr Y29s (more content not included)... Normal [facility] Family Medicine Office/Clini c Noteon 12-27-2021 [...] symptoms have not improved. 2. Former smoker (Z87.311: Personal history of nicotine dependence) - Encouraged patient to continue to refrain from smoking. 3. BMI 29.0-29.9,adult (Z68.29: Body mass index [BMI] 29.0-29.9, adult) - Educated patient on healthy fitness, lifestyle and nutrition practices. Documentation services were performed after patient or guardian consented to allow Jef Tobar to record this visit. JEAN CARLOS media services specialist and provider reviewed before signing. Completed by: Rosa Isela Rouse/Angeli Ignacio. Pated by Priyanka Mosley, Quality Chef Teacher. Follow-up No qualifying data available Problem [...] (more content not included)... Normal [facility] Comment on above: Result Comment: Elec tronically Signed By: Hayes Moura MD\.br\Date and Time Signed: 12/27/21 15:46 EST\.br\Electronically Co-Signed By: Priyanka Mosley\.br\Date and Time Co-Signed: 12/26/21 22:49 EST RENETTAOVon 01-02-2017 CNOV [facility]AGEXPHUD[facility][id number][facility] 1995 FDate Time Provider Vgqrblrwgp32/22/17 2:30 PM FANNY GROSS) AGEXPHUD During your visit today, [...] worsen.- AMOXICILLIN 875 MG-POTASSIUM CLAVULANATE 125 MG TABLETPancho Higginbotham CNP 01/02/2017 2:39 PM SignedBP 125/75 Pulse [...] Yes. To reduce yoursymptoms, you can:?Take an sebs-joh-xjqrylk pain reliever to reduce the pain?Rinse your [...] pulsating irrigation device (sample brand names: Grossan HydroPulse,WaterpiTrippy Bandz Sinusense Water Pulsator) ? These are battery-powered [...] 4 - HivesDate Reviewed: 01/02/2017Reviewed by: Fanny ([facility]) Renato - Fully AssessedReason for Visit: [...] MG-POTASSIUM CLAVULANATE 125 MG TABLET Fanny Gross, [facility] Patient education: Sinusitis in adults (The Basics) [...] reduce your symptoms, you can: ?Take an jpxf-cdd-snvbzvo pain reliever to reduce the pain ?Rinse [...] with your doctor This topic retrieved from [facility] Patient education: Rinsing out your nose with [...] ?A pulsating irrigation device (sample brand names: Grossan HydroPulse, WaterCantaloupe Systems Sinusense Water Pulsator) ? These are battery-powered [...] out your nose. This topic retrieved from [facility] ordered this encounter Disp Refills Start End AMOXICILLIN 875 MG-POTASSIUM CLAVULA* 20 t* 0 01/02/2017 01/12/2017 Route: ORAL Sig: Take 1 tablet by mouth every 12 hours for 10 days.Disposition: Return if symptoms worsen or fail to improve.Follow-up and Disposition History RecordedEncounter Number: [id number] Status:Closed by FANNY GROSS CNP on 01/02/17 [facility] PROGRESSon 01-02-2017 PROGRESS HNO ID: [id number] thor: Fanny (Desmond) MosFerervice: (none)Author Type: Nurse PractitionerType: Progress NotesFiled: 01/02/2017 [...] MG-POTASSIUM CLAVULANATE 125 MG TABLETFanny Gross CNP [facility] 11-12-2016 [facility] Office Visit (AGEXPHUD) CLAUSCUCO TEE ([id number]) 1995 FDate Time Provider Urdojcfyoa23/2/17 8:15 AM FANNY GROSS (DESMOND) AGEXPHUD During [...] too much?Breathing in harsh chemicals, such as fruit shipper or gasoline?Drinking too much alcohol or smoking [...] Other causes of laryngitis are treated on legbg-he-ojts basis.-Voice rest is used for acute laryngitis, [...] Laryngitis, acute [J04.0]Order(s):ALERE STREP A TEST (AG) [8195701] Order #: [id number] THROAT CULTURE [SQTHRCUL] Order #: [id number] FUTURE lidocaine viscous (LIDOCAINE VISCOUS) 2 % [...] much ?Breathing in harsh chemicals, such as fruit shipper or gasoline ?Drinking too much alcohol or [...] to 7 days Call an ambulance (dial 9-1-1 in the [place] [...] causes of laryngitis are treated on a vqbu-lo-rqap basis. -Voice rest is used for acute [...] to do for your baby. Retrieved from [facility] ordered this encounter Disp Refills Start End LIDOCAINE 2 % MUCOSAL SOLUTION 100 * 0 11/12/2016 Route: ORAL Sig: Take 5 mL by mouth four times daily as needed for Pain (swish and spit, do NOT swallow).Disposition: Return if symptoms worsen or fail to improve.Follow-up and Disposition History RecordedEncounter Number: [id number] Status:Closed by FANNY GROSS CNP on 11/12/16 [facility] PROGRESSon 11-12-2016 PROGRESS HNO ID: [id number] thor: Fanny Banks) Arleyervice: (none)Author Type: Nurse [...] ICD9: 464.00, ICD10: J04.0- Written educational material Walt Gross CNP Normal [facility] Throat Cultureon 11-12-2016 Throat Culture Test performed at [facility] No group A beta streptococci cultured. Normal [facility] Comment on above: Performed By: #### C THRT ####[facility] [place], [place] [address] Vital Signs Date Time Vital Sign Value Performing Clinician Facility 03-14-2023 09:31-0500 Body mass index (BMI) [Ratio] 31.17 kg/m2 Cheyenne Bj DO Work Phone: [facility] 03-14-2023 09:31-0500 Body weight 92.99 kg Cheyenne Bj DO Work Phone: [facility] 03-14-2023 09:31-0500 Diastolic blood pressure 66 mm[Hg] Cheyenne Bj DO Work Phone: [facility] 03-14-2023 09:31-0500 Systolic blood pressure 130 mm[Hg] Cheyenne Bj DO Work Phone: [facility] 12-26-2021 13:47-0500 Blood Pressure Location Hayes [facility] 12-26-2021 13:47-0500 Body temperature 96.8 [degF] Hayes [facility] 12-26-2021 13:47-0500 Diastolic blood pressure 72 mm[Hg] Hayes [facility] 12-26-2021 13:47-0500 Heart rate 67 /min Hayes [facility] 12-26-2021 13:47-0500 Respiratory rate 16 /min Hayes [facility] 12-26-2021 13:47-0500 SaO2% (BldA) [Mass fraction] 98 % Hayes Moura [facility] 12-26-2021 13:47-0500 Systolic blood pressure 112 mm[Hg] Hayes Moura [facility] Encounters Encounter Date Encounter Type Care Provider Facility Start: 06-12-2023 End: 06-12-2023 ambulatory CHEYENNE BJ Not Available Start: 06-05-2023 End: 06-05-2023 ambulatory CHEYENNE BJ Not Available Start: 05-29-2023 End: 05-29-2023 ambulatory PRETTY SANGEETHA [...] sheet Cheyenne Bj DO Work Phone: [facility] Comment on above: Second trimester pre gnancy Start: 02-14-2023 End: 02-14-2023 ambulatory PRETTY SANGEETHA Not Available Start: 01-16-2023 End: 01-16-2023 ambulatory CHEYENNE BJ Not Available Start: 11-04-2022 End: 11-05-2022 Emergency department patient visit Gorge Castro Facility:[facility] Start: 05-14-2022 End: 05-14-2022 ambulatory PRETTY SANGEETHA . Facility: Start: 12-26-2021 End: 12-27-2021 ambulatory MD Hayes Moura Facility:[facility] Start: 12-26-2021 End: 12-26-2021 Lab Drop off Hayes Moura [facility] Start: 12-26-2021 End: 12-26-2021 Patient encounter procedure Hayes Gudimella [facility] Start: 11-12-2016 End: 11-13-2016 Ambulatory FANNY (INTEGRATION ARCHITECT) [facility] Start: 11-12-2016 End: 11-12-2016 Ambulatory FANNY (INTEGRATION ARCHITECT) [facility] Procedures Date Procedure Procedure Detail Performing Clinician Start: 03-14-2023 Urnls dip stick/tabl et rgnt non-auto w/o micrscp Cheyenne Alvao DO Work Phone: Start: 02-11-1998 Adenoid excision Hayes Gudimella Plan of Treatment Date Care Activity Detail Author Start: 04-04-2023 End: 04-04-2023 Patient encounter procedure 04/04/2023 9:10 AM EST Routine [facility] [address] [place] [address] Pretty Vivas PA [address] [place], [place] [id number] [facility] Start: 10-12-2022 Influenza vaccination Influenza Vacc ine (#1) [facility] Immunizations Immunization Date Immunization Notes Care Provider Fa tanya 04-16-2020 SARS-CoV-2 (COVID-19 ) mRNA-1273 vaccine Hayes Gudimella [facility] 01-12-2020 influenza virus vaccine, unspecified formulation Cheyenne Lorenzo DO Work Phone: [facility] 11-16-2019 influenza, injectable, quadrivalent, contains preservative Hayes Gudimella [facility] 08-28-2019 tetanus toxoid, reduced diphtheria toxoid, and acellular pertussis vaccine, adsorbed Hayes Gudimella [facility] NEGATED: Highlighted row has not occurred!12-26-2021 influenza virus vaccine, unspecified formulation Hayes Moura [facility] Payers Date Payer Category Payer Unknown BCBS BCBS xxxxxx [id number] 2021-Present [phone] [address] [place] [address] [id number] 1993 Unknown [id number] 1993 Unknown [id number] [id number]7 1993 Unknown [id number] 2.16.840.1.315214.3.579.2.727 1993 Unknown [id number] 2.16.840.1.810905.3.579.2.727 1993 Unknown [id number] 2.16.840.1.122754.3.579.2.727 1993 Unknown [id number] 2.16.840.1.593779.3.579.2.1259 1993 Unknown [id number] 2.16.840.1.509036.3.579.2.1259 1993 Unknown [id number] 2.16.840.1.022156.3.579.2.1259 1993 Unknown [id number] 1993 Unknown [id number] 1993 Unknown [id number] 1993 Unknown [id number] 1993 Unknown [id number] 1993 Unknown [id number] 1993 Unknown [id number] 1959 Unknown [id number] Unknown [id number] Social History Date Type Detail Facility Start: 12-26-2021 Tobacco smoking status Ex-smoker (finding) [facility] Comment on above: denies denies Tobacco smoking status Never [facility] Comment on above: denies denies Sex Assigned At Female [facility] Tobacco smoking status NHIS Tobacco smoking consumption unknown [facility] Start: 10-05-2022 [facility] Start: 1995 Sex Assigned At Not on file [facility] Functional Status Date Assessment Result Facility 12-26-2021 Functional Status N/A [facility] History of Present illness Narrative 03-14-2023 Priscilla [...] nursing note reviewed. Exam conducted with a labels molder present. Vitals: Estimated body mass index is [...] Cheyenne Lorenzo DO documented in this encounter [facility] Clinical Note 01-19-2022 Note Date & Type [...] Locations R1: This test was performed at: [facility], [address] [place] [address], [id number] , [facility] Comment on above: Performed By: #### [id number] #### [facility] [address] [place] [id number] Clinical Note 12-29-2021 Note Date & Type [...] Locations R1: This test was performed at: [facility], [address] [place] [address], [id number] [place] [address], [facility] Comment on above: Performed By: #### [id number] #### [facility] [address] [place] [id number] Evaluation + Plan note 12-26-2021 Note Date & Type Note Facility 12-26-2021 Evaluation + Plan note Diagnostic Tests PendingFluid Culture 12/26/21 [facility] Evaluation + Plan note Note Date & Type Note Facility Evaluation + Plan note No data available for this section [facility] Evaluation note Note Date & Type Note Facility Evaluation note Diagnosis Second trimester state, incidental documented in this encounter [facility] Discharge instructions Note Date & Type Note Facility Hospital Discharge instructions No data available for this section [facility] Progress note Note Date & Type Note Facility Progress note No data available for this section [facility] Summary Purpose Family History [...] content) DATE CREATED AUTHOR 08/06/2017 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 [employer] provides no warranty or guarantee of the accuracy or completeness of information in this document.
[2023-06-20 23:24] VITALS: BP 131/74; PULSE 80
[2023-06-20 23:36] VITALS: TEMP 36.1
[2023-06-20] MEDS: 0.9 % SODIUM CHLORIDE 1,000 ML 125 ML IV (23:44)
[2023-06-20 23:46] VITALS: TEMP 36.1
[2023-06-20 23:58] LABS: Hematocrit 35.2 % (36.0-48.0); Hemoglobin 11.8 g/dL (12.0-16.0); Mean Corpuscular HGB Conc 33.5 g/dL (29.9-35.2); Mean Corpuscular Hemoglobin 30.9 pg (26.7-34.0); Mean Corpuscular Volume 92.1 fL (81.0-99.0); Platelet Count 191 10^3/uL (150-450); Red Blood Count 3.82 10^6/uL (4.20-5.40); Red Cell Distribution Width 13.6 % (11.0-15.0)
[2023-06-21] VITALS (31 sets, daily range): BP systolic 98–142; BP diastolic 56–93; PULSE 50–80; TEMP 35.4–37.2
[2023-06-21 00:09] LABS: Amphetamine Screen Urine NEGATIVE (NEGATIVE); Barbiturates Screen Urine NEGATIVE (NEGATIVE); Benzodiazepines Screen Urine NEGATIVE (NEGATIVE); Buprenorphine Screen Urine NEGATIVE (NEGATIVE); Cannabinoid Screen Urine NEGATIVE (NEGATIVE); Cocaine Screen Urine NEGATIVE (NEGATIVE); Methadone Screen Urine NEGATIVE (NEGATIVE); Methamphetamines Screen Urine NEGATIVE (NEGATIVE); Opiate Screen Urine NEGATIVE (NEGATIVE); Oxycodone Screen Urine NEGATIVE (NEGATIVE); Phencyclidine Screen Urine NEGATIVE (NEGATIVE); Tricyclic Antidepressant Urine NEGATIVE (NEGATIVE)
[2023-06-21] MEDS: OXYTOCIN/0.9 % SODIUM CHLORIDE 10 UNITS/500 ML PLAST..BAG 6 UNIT IV ×2 (00:14→13:58)
--- NOTE | 2023-06-21 07:19 | W.PC.ACHO ---
Registration Status: ADM IN Primary Language: Swedish Preferred Language: Swedish Report given to Abe GASTELUM at 0700. Active Medications Generic Name Dose Route Start Last Admin Trade Name Uzair PRN Reason Stop Dose Admin Carboprost Tromethamine 250 mcg 06/20/23 23:06 Carboprost Tromethamine 250 Mcg/Ml 1 Ml Vial IM 06/22/23 23:06 Q15M PRN Bleeding Sodium Chloride 1,000 mls @ 125 mls/hr 06/20/23 23:30 06/20/23 23:44 Sodium Chloride 0.9% 1,000 Ml IV 125 mls/hr .Q8H MADHAV Administration Oxytocin/Sodium Chloride 20 units in 1,000 mls @ 125 mls/hr 06/20/23 23:06 Pitocin 20 Unit/1,000 Ml-Ns IV Q8H PRN POST DELIVERY Oxytocin/Sodium Chloride 10 units in 500 mls @ 6 mls/hr 06/20/23 23:15 06/21/23 00:14 Pitocin 10 Unit/500 Ml-Ns IV 2 milliunit/min TITR MADHAV 6 mls/hr Administration Protocol 2 MILLIUNIT/MIN Lidocaine 5 ml 06/20/23 23:06 Lidocaine Viscous 2% 15 Ml Solution TOPICAL ONCE PRN Pain Lidocaine 1 ml 06/20/23 23:06 Lidocaine Hcl 1% 200 Mg/20 Ml Mdv INJ ONCE PRN Pain Methylergonovine Maleate 0.2 mg 06/20/23 23:06 Methylergonovine Maleate 0.2 Mg/Ml Ampule IM 06/22/23 23:06 ONCE PRN Uterine Contractility/Contract Methylergonovine Maleate 0.2 mg 06/20/23 23:06 Methylergonovine Maleate 0.2 Mg Tablet PO 06/22/23 23:06 Q4H PRN Uterine Contractility/Contract Misoprostol 600 mcg 06/20/23 23:06 Misoprostol 100 Mcg Tablet PO 06/22/23 23:06 ONCE PRN Uterine Bleeding Misoprostol 800 mcg 06/20/23 23:06 Misoprostol 100 Mcg Tablet SL 06/22/23 23:06 ONCE PRN Uterine Bleeding Misoprostol 1,000 mcg 06/20/23 23:06 Misoprostol 100 Mcg Tablet AZ 06/22/23 23:06 ONCE PRN Uterine Bleeding Ondansetron HCl 4 mg 06/20/23 23:06 Ondansetron Pf 4 Mg/2 Ml Vial IV Q6H PRN Nausea And Vomiting Ondansetron HCl 4 mg 06/20/23 23:06 Ondansetron 4 Mg Rapdis Tablet SL Q6H PRN Nausea And Vomiting Oxytocin 10 unit 06/20/23 23:06 Oxytocin 10 Unit/Ml Vial IM 06/22/23 23:06 ONCE PRN Bleeding Diet Category Date Time Status Regular Consistency Diet Diet 06/20/23 23:07 Active IV Insertion/Site Date of IV Line Insertion [ 06/20/23 Short PIV (<1.75 in) 20g left Wrist] IV Insertion Time [Short PIV ( 23:44 <1.75 in) 20g left Wrist] Neurology Patient orientation (short person,place,time,situation list) Respiratory Oxygen Delivery Method Room Air
[2023-06-21] MEDS: 0.9 % SODIUM CHLORIDE 1,000 ML 125 ML IV (07:33)
[2023-06-21] MEDS: OXYTOCIN/0.9 % SODIUM CHLORIDE 20 UNITS/1,000 ML PLAST..BAG 125 UNIT IV (16:45)
--- NOTE | 2023-06-21 16:54 | PM.OBPRCVD ---
Procedure Intrapartal events: None Induction method: per pitocin protocol Delivery augmentation: rupture of membranes and pitocin Delivery monitor: external FHT and external uterine Route of delivery: Episiotomy Description: none L&D Laceration Description: perineal - 1st degree Delivery repair: Vicryl Estimated blood loss (mL): 250 Anesthesia type: None Disposition: floor Infant Delivery date: 06/21/23 Gender: female presentation: vertex Placental delivery description: Spontaneous cord description: 3 Vessels
[2023-06-21] MEDS: BENZOCAINE/MENTHOL 85 GRAM SPRAY BOTTLE 1 APPLIC TOPICAL (17:09)
[2023-06-21] MEDS: GLYCERIN/WITCH HAZEL PADS 1 PAD TOPICAL (17:09)
[2023-06-21] MEDS: LIDOCAINE HCL 1% 200 MG/20 ML MDV INJ (17:10)
[2023-06-21] MEDS: IBUPROFEN 600 MG TABLET PO (19:20)
[2023-06-22] MEDS: IBUPROFEN 600 MG TABLET PO ×2 (04:15→15:47)
[2023-06-22 06:14] LABS: Basophils Percent Auto 0.3 % (0.2-2.0); Eosinophils Absolute Auto 0.1 10^3/uL (0.0-0.7); Eosinophils Percent Auto 0.6 % (0.9-7.0); Hematocrit 32.4 % (36.0-48.0); Hemoglobin 10.6 g/dL (12.0-16.0); Immature Granulocytes Abs Auto 0.02 10^3/uL (0.00-0.03); Immature Granulocytes Pct Auto 0.2 % (0.0-0.5); Lymphocytes Absolute Auto 1.8 10^3/uL (1.2-3.8); Lymphocytes Percent Auto 19.8 % (20.5-60.0); Mean Corpuscular HGB Conc 32.7 g/dL (29.9-35.2); Mean Corpuscular Hemoglobin 30.6 pg (26.7-34.0); Mean Corpuscular Volume 93.6 fL (81.0-99.0); Mean Platelet Volume 10.9 fL (9.5-13.5); Monocytes Absolute Auto 0.6 10^3/uL (0.3-0.8); Neutrophils Absolute Auto 6.4 10^3/uL (1.4-6.5); Neutrophils Percent Auto 72.1 % (43.0-75.0); Platelet Count 173 10^3/uL (150-450); Red Blood Count 3.46 10^6/uL (4.20-5.40); Red Cell Distribution Width 13.9 % (11.0-15.0); White Blood Count 8.9 10^3/uL (4.0-11.0)
[2023-06-22 07:29] VITALS: BP 112/79; PULSE 56; TEMP 35.9
[2023-06-22] MEDS: DOCUSATE SODIUM 100 MG CAPSULE PO (08:45)
--- NOTE | 2023-06-22 08:55 | PM.OBPN ---
OB - PN: Subj Subjective Patient comments: no complaints [place] status: doing well feeding status: exclusively Exam Constitutional Vital Signs, click to edit/add: Last Vital Signs Temp 96.6 F L 06/22/23 07:29 Pulse 56 L 06/22/23 07:29 Resp 17 06/22/23 07:38 BP 112/79 06/22/23 07:29 O2 Del Method Room Air 06/22/23 07:38 Documenting provider has reviewed patient's vital signs: yes Common normals: no apparent distress General appearance: cooperative Orientation/consciousness: Yes awake, Yes oriented to person, Yes oriented to place and Yes oriented to time HENMT Common normals: normocephalic Neck & C-Spine Common normals: full ROM Lymph Lymphatic: no lymphadenopathy noted Respiratory Common normals: normal respiratory effort Cardio Common normals: regular rate and regular rhythm Rate: regular rate Rhythm: regular rhythm GI Common normals: Normal to inspection, nondistended, normoactive bowel sounds present Palpation: soft Back & Pelvis Common normals: no CVA tenderness Extremity Common normals: normal to inspection and full ROM Neuro Common normals: oriented x3 Sensorium/orientation: awake, alert, oriented to person, oriented to place and oriented to time Psych Common normals: mental status grossly normal, thought process normal and cooperative Attitude: calm Results Labs Labs: Short CBC 06/22/23 Range/Units 06:07 WBC 8.9 (4.0-11.0) 10^3/uL Hgb 10.6 L (12.0-16.0) g/dL Hct 32.4 L (36.0-48.0) % Plt Count 173 (150-450) 10^3/uL OB - PN: A/P Plan - Vaginal Delivery day: 1 Plan: routine care Time Spent with Patient Time: Total time spent is greater than 50% in coordination of care (as documented) at patient's floor/unit and/or counseling patient: Total time spent with greater than 50% in coordination of care (as documented) at patient's floor/unit and/or counseling patient: less than 15 minutes
[2023-06-22 18:10] VITALS: BP 124/87; PULSE 63; TEMP 36.1
[2023-06-22] MEDS: ADACEL DIPH,PERTUSS(ACELL),TET VAC/PF 0.5 ML ADULT SYRINGE IM (18:11)
[2023-06-22] MEDS: GLYCERIN/WITCH HAZEL PADS 1 PAD TOPICAL (18:21)
== END 2023-06-22 19:00 | disposition home or self-care (01) | DRG 807 ==
PROVIDERS: Admitting Provider Obstetrics & Gynecology; Visit Provider Obstetrics & Gynecology
DX: O70.0 First degree perineal laceration during delivery (principal); Z37.0 Single live birth; Z3A.39 39 weeks gestation of pregnancy
CPT/HCPCS: 36415; 59050; 59410; 80307; 85025; 85027; 86850; 86900; 86901; 90471; 90715; 96365; 96366; 96376

== ENCOUNTER 2023-06-25 08:18 | Outpatient (OUT) | payer BC, SELFPAY ==
--- OUTSIDE RECORDS SUMMARY | 2023-06-25 08:35 | XMS_ITS | CCD ---
Author Organization [facility] Care Team Providers Care Auto Service Mechanic Name Role Phone MOSNEAG FANNY (POLICE SURGEON) Unavailable Unavailab le MOSNEAG, FANNY (POLICE SURGEON) Unavailable Unavailab le IMCA Unavailable Unavailable MARTING, FANNY E Unavailable Unavailable Sherri CHEUNG Primary Care Physician [phone] PRETTY MCGRAW Admitting Unavailable PRETTY MCGRAW Attending Unavailable [facility] Ferrari Primary Care Unavailable RPETTY MCGRAW Consulting Unavailable MD Zeny Hayes Attending Unavailable MD Zeny Hayes Admitting Unavailable Gorge Castro Attending Unavailable MD Zeny Hayes Attending Unavailable MD Zeny Hayes Attending Unavailable MD Zeny Hayes Admitting Unavailable Jessica STEINBERG, [facility] Primary Care Provider [phone] PRETTY VIVAS Attending Unavailable BJ, CHEYENNE Attending Unavailable PRETTY VIVAS Attending Unavailable BJ, CHEYENNE Attending Unavailable BJ, CHEYENNE Attending Unavailable BJ, CHEYENNE Attending Unavailable BJ, CHEYENNE Attending Unavailable PRETTY VIVAS Attending Unavailable BJ, CHEYENNE Attending Unavailable BJ, CHEYENNE Attending Unavailable BJ, CHEYENNE Attending Unavailable Allergies Allergy Classification Reported Allergen(s) Allergy Type Date of Onset Reaction(s) Facility (2 sources) Sulfonamides (Antibiotic); Translations: [SULFA (SULFONAMIDE ANTIBIOTICS)] Propensity to adverse reactions to drug (disorder) 7 AOF [facility] Repository (7 sources) Sulfonamides (Antibiotic); Translations: [sulfa drugs] Drug allergy [facility] (1 source) Sulfonamides (Antibiotic) Drug allergy (disorder) [facility] (1 source) Sulfonamides (Antibiotic) Drug Allergy 3 Unknown [facility] Medications Current Medications Medication Drug Class(es) Dates Sig (Normalized) Sig (Original) clotrimazole 10 mg/ml topical cream (6 sources) Azole Antifungal Start: 12-26-2021 clotrimazole Top 1% Crm 1 lenin, Topical, BID, 24 gram, Refill(s) 0, [id number], 175, cm, 12/26/21 13:50:00 EST, Height/Length Dosing, [...] UA Negative Negative - 4(70) +++ mg/dL [facility] Work Phone: Blood, UA Negative Negative - 50 Jarrett/mcL [facility] Work Phone: Clarity, UA Clear [facility] Work Phone: Color, UA Yellow [facility] Work Phone: Glucose, UA Positive Negative - 1999(110) ++++ mg/dL [facility] Work Phone: Comment on above: 100 Interpretation and review of laboratory results Abnormal [facility] Work Phone: Ketones, UA Negative Negative - 160(16) ++++ mg/dL [facility] Work Phone: Leukocytes, UA Moderate Negative - 500+++ Brooke/mcL [facility] Work Phone: Nitrite, UA Negative Negative - Positive [facility] Work Phone: pH, UA 7.0 5 - 9 [facility] Work Phone: Protein, UA Negative Negative - 2000(20) ++++ mg/dL [facility] Work Phone: Spec Grav, UA 1.010 1 - 1.03 [facility] Work Phone: Urobilinogen, UA 0.2 0.2 - 12 mg/dL [facility] Work Phone: [facility] Work Phone: ED Note-Physicianon 11-12-19 [...] day(s), # 14 cap(s), Refills(s) 0, Pharmacy: [id number], 173, cm, 11/04/22 21:16:00 EDT, Height/Length Dosing, 90.6, kg, 11/04/22 21:16:00 EDT, Weight Dosing Disposition Plan Patient Discharge Condition Stable Discharge Disposition To home Discharge Prescription List Prescriptions cephalexin 500 mg Cap, 500 mg= 1 cap(s), Oral, q12hr Follow-up With When Contact Information Sherri CHEUNG In 3 days 11/07/2022 EDT [address] [facility] [place] [address]- Business (1) Additional Instructions: Call the office [...] Patient seen and evaluated by the physician cafe assistant. Attending physician was present in the emergency department and supervised care. This visit was performed by both the physician and an APC. I performed all aspects of the MDM as documented. This report was transcribed using voice recognition software. Every effort was made to ensure accuracy, however, inadvertently computerized major appliance assembly supervisor mistakes may be present. Appropriate healthcare PPE was used in evaluating this patient. The patient was placed in a mask. The healthcare provider was wearing mask, gloves, and util (more content not included)... Normal [facility] Comment on above: Result Comment: Elec tronically Signed By: Bud Parker PA-C\.br\Date and Time Signed: 11/04/22 22:25 EDT\.br\Electronically Co-Signed By: Gorge Castro MD\.br\Date and Time Co-Signed: 11/11/22 20:46 EDT Discharge Instructionson Discharge Instructions [id number]:12 7 Normal [facility] ED Clinical Summaryon 2022 ED Clinical Summary [place] [id number] ED Clinical Summary Person Information Name: CUCO CARDENAS/[facility] Age: 27 Years : 1995 Sex: Female Language: Chadian PCP: Sherri CHEUNG MD Marital Status: Single [...] 11/04/2022 22:37:58 11/04/2022 22:37:58 11/04/2022 22:37:58 ADDRESS: [address] [place] [id number] PHYS DOC NOTES: MEDICAL INFORMATION: Prescriptions Given: New Medications [id number], [address], [place] [id number], [phone] cephalexin (cephalexin 500 mg Cap) 1 Capsules [...] Follow up: With: Address: When: Sherri CHEUNG [address] [place] [address] [address] [phone] [facility] (1) In 3 days 11/07/2022 Comments: Call [...] symptoms. DIAGNOSIS: Fingertip avulsion Normal [facility] ED Patient Education Noteon 11-05-2022 ED [...] even if your condition improves. ? Take yehd-drp-lbcinck and prescription medicines only as told by [...] and water are not available, use hand group sales coordinator. ? Change your dressing as told by [...] (more content not included)... Normal [facility] ED Patient Summaryon 023 ED Patient Summary (Inserted Image. Marylu ble to display) [address] [address] Patient Discharge Instructions Person Information Name: CUCO CARDENAS Age: 27 Years Arrival Date: 11/04/2022 21:10:12 Discharge Diagnosis: Fingertip avulsion Primary Care Physician: Sherri CHEUNG MD Provider Information Primary Provider: Advanced Ep Tech:Bud Parker PA-C The exam and treatment you received in the Emergency Department were for an urgent problem and are not intended as complete care. It is important that you follow up with a doctor, nurse practitioner, or physician?s cafe assistant for ongoing care. If your symptoms [...] Follow-up Instructions: With: Address: When: Sherri CHEUNG [address] [place] [address] [address] [phone] Business (1) In 3 days 11/07/2022 Comments: [...] opioids can be used to help relieve vpktiawr-fr-jsxwer pain and are often prescribed following a [...] (more content not included)... Normal [facility] Consent for Treatmenton 10-13 Consent for Treatment [id number]:127 Normal [facility] PAP ACOG PANEL 2: 21 to 29on 05-21-2022 . . Normal [facility] Comment on above: Performed By: #### 4 [id number] #### [facility] [address] [place] [address] Dr. Jewels Looney Age Gdln ACOG Testing 21-29 [facility] Comment on above: Performed By: #### 4 [id number] #### [facility] [address] [place] [address] Dr. Jewels Looney DIAGNOSIS: Comment [facility] Comment on above: Result Comment: NEGA TIVE FOR INTRAEPITHELIAL LESION OR MALIGNANCY. Performed By: #### 4 [id number] #### [facility] [address] [address] [address] Jewels Looney Methodology: Comment [facility] Comment on above: Result Comment: This liquid based ThinPrep(R) pap test was screened with the use of an image guided system. Performed By: #### 4 [id number] #### [facility] [address] [place] [address] Dr. Jewels Looney Note: Comment [facility] Comment on above: Result Comment: The Pap smear is a screening test designed to aid in the detection of premalignant and malignant conditions of the uterine cervix. It is not a diagnostic procedure and should not be used as the sole means of detecting cervical cancer. Both false-positive and false-negative reports do occur. . Performed By: #### 4 [id number] #### [facility] [address] [place] [address] Dr. Jeewls Looney Performed by: Comment Normal [facility] Comment on above: Result Comment: Rosita Haines, Embosser Operator (ASCP) Performed By: #### 4 [id number] #### [facility] [address] [place] [address] Dr. Jewels Looney Reflex Criteria: Comment [facility] Comment on above: Result Comment: The HPV DNA reflex criteria were not met with this specimen result therefore, no HPV testing was performed. . Performed By: #### 4 [id number] #### [facility] [address] [place] [address] Dr. Jewels Looney Specimen adequacy: Comment Normal [facility] Comment on above: Result Comment: Sati sfactory for evaluation. Endocervical and/or squamous metaplastic cells (endocervical component) are present. Performed By: #### 4 [id number] #### [facility] [address] [place] [address] Dr. Jewels Looney Reminderson 01-19-2022 Reminders - From: Hayes Moura MD To: [facility] - Clinical; Sent: 01/16/2022 [...] any questions or concerns. Normal [facility] Coding Summary.on 12-31-2021 Coding Summary. CD:[id number] Gh0bWw +PGhlYWQ+LV4TICCfF84sgBDcs L2EG0wSUD1RBZVIQJTXSO5WVM0 beGE5HAieN6KwxqJv VmehsHIkNO80RHb3SKD6lWfwGW pccB8luKAtK6s0RfHcEK48rJ21 LNvdAAVgMnP8LaHcedzxfCIu M9zmNeVwhLIxEhb+PHRhYmxlIH whIQUbSTmhYPIdXhJilZquFZ0l He5fCPAnBQAhkHyvcDLsVdZm k0gbKBJgHSfsWW8ewRpfT3LrpH A1KIUsc5h2Dy60eEF+PHRkIHN0 pVdhKTgfs171QrKuj9ibRRW1 eUObSTstSRU4X37lo7B6JQGjFU JxJGK6yCN5qJ5kgCplktbtH8Oc lVSlGoY2NMJ4cTIwmG6ftMlx aewyoV8vSlw+C18BSO6AQAAOYF 2QFpr9R4ZlPfcqvKF+RM30UTXr IH41cNXxxLPhp3trvYn1RlGt OJQxLFN6pWuiUNztj4PjREHpR8 2ufIPpj9E2WTFdfKqqmURvFiTv pHY9vF5wAHshuygul3dluuvc Wxwtj1niwy35vA38L62kMJveIR EsYNX0VMMxQVXyvHowoe1orS0t Ii8+CDyay7hbo1iobPo5BkKx HAWjsiAznTdiJXI9m1UeXd99B2 TrmZtdu5CjSxd9lw15jYCeb9T2 wTK0JKymSLBmzF9oXLgcVbK4 UVYfTtVszP21mVIxMKavTr5noZ brlTufXQ2tRHPjldswRAPyzI5l KVBllJGudFgyKZ2oDATqvdsn f930CwTtJLR9MJNdnBPvX1XoaL 7rOcFwNJBmYLHjU4YkgOWqSDie T125JXriQjM3FWApcoQvT6Yi JNXfhWymYpX9m6N4Bs4Ps3Esoq pbOSL2JEjfRSWoVjDtTjJpGzF4 R4VdDfm0CODyaFhjPE1uY8Ah AFBqsfulqukgzYU2PRPgVMXiuF 08tVJqQRllTh8cf7A0w252EKYp LHImgM01Yk9vqAveYSWkjOHU lG3irvybo4dgqtotOkAlWJThIU z7WUd5LVWlmEtyAqEyVCT5BjU7 NRF9iYSqhE6xeArxmjlmdZ4g Oyc+K73psS2hKBU0KVL6ybqqPM QoajPxOY30KR58I4RvJszudAMt bGU+VIVbmuMmgTnsRI1oThYv v4frm1UjZXrtE9CdBEIdSMxsAz i5AVJlJPF7yJX2tL0rVKTtTDad h6D4cTJ3A4GhawEmlj8zn7yw EIMrNBkeE65muBNkj6N9LYFduO B9WQAgvJayGuVdlJ33Mug+PGNv cQvst4JtMnltz3vcb4njkHs3 ZfGtGYLmtbRleEndTUH2z3YnKp 04A32hZJohMEMwHNGdEDYcAEOu zWfrbl6ywK9vOz7+PGNvbCB3 sPS8uR1jYHNrArY7ZGyeW343En HziXMsSjjrh4ftt0zpdHv5WbAh UJPeuoWexIvbEAG0n6RaVm89 S03eQLhwIDCwJAUdWCQzEGWgmR qaiq2ndQ1zLt6+TX8pu6ulvl46 zI32uEI+RZBxECT5lEwpRYhz AOChrV0mCFmaGmJ7SFPkPcJnrI 52zSEzWHzzXw6gdOsvoMguWR3c CUSvgflci594VbSrc3uxWOMw qNWdKPhoPXR3W50rc1Y9HXGvCB NsUHR6mST7pQ7jcQbtwqlzmQFn iQcussWkgVaaTDcqUSyqT357 IHRvcDsnPlBhdGllbnQgTmFtZT r2E6UjVrb1DUXajHmuKE2xbTFg FGttAk2ebCiklBtpLO9tXTMf surcv394UhJtq6muMAFchHHwKT bkTAE8B93qj4J5CWOyQMQyLQM9 sKT6bA9qmWsvxepuwOKemIer ubNukGbrWRuiJParC441LGKvxE bcUqNmreAiRQCxpJA0DL09FF58 sILvo6B9jMB6X5FbHIJlzcau gbxghFR5VKVaDURycB76Ev4cjS nrDp6aJZFpQUS3TINusBZxT7Mz yT3wUnAmESRgHGNaJ5FuqJTt AIngY641OPzqVbL6WEXwalZkM7 AmLXCclVjrQjM4j9K8Gi1LQ3F5 TG15AF43xWPfu8P3fNE5D6Vf FHYdzyvfdnqvlEJ2NAKiKESyhV 45Ci5pwMjyDt6xAACtLZK5GDBa cHLuQ8IqqE5qZbDfCEDdTPJe N5RdrLKxBNezK761JNukPkV5AP ObjvRkU3XjQYRhtVoaGrV0c8Q5 Gc6EANe9CD94UO32tMKjp7C7 yFU9L2PyKOGfgeauqaikcPC6SO EiYHLpqC24Xf2gnYcjHi8oHKLg QCU6ORTbeQPtJ6VjvB4tFlXn BIAqQNGoA9EpiESxBHvgR930SI qhDsI4IDGkpmXxW0AzSYIteJes YdU1f3P0Jg2UDWTkIE85DMW3 yAG9PO01BO28X8TyGzqhyCRdnQ U+PHRhYmxlIHdpZHRoPScxMDAl HyHkyVohAT1rGx3qFTUeDTPo oYpsrVGuMcMqj7ycVOHqBDovDG 8lbYkpE1FegDN5QSFca3v2Vk24 W46jF5JdpHA+SWLrzPA1mZV3 tP6dKzSrApR0RWgpZ906EvOatC HdHoede8jws5yavAq6FzP8CWLp cxRzbWpaOMN2h8KcXj13L55x IHdpZHRoPSIxNSUiIHZhbGlnbj 9gpJ3jVr0+WDNekZE5gZJ7tY6q HbMgNgM7DXlkS070SfIbvGZk Suniu2ett2sukUs7WjFpRTUqqb OdoNweNBG6o3IhEm76G0LokOyt p2IrCqn6kc23gLJnh5Q9gIQ6 W4UvXDYzvuxwvGCkjXtiQI3gWP NrkvsiXSBspL7iBVNeO6h7DgUb RwX5NOfuB8DlkuU6KOLlmKSc RFqxQRN3K82bv3X8KYWfPZVuIS Z7rFV9eL7knIqwoobstQHdtCxq goEtyCuhKEnsNBvnH485HXTb nFpzEGUlzU8jAPTvkAEawWlvCL 4kYQAknypwIxIIWIIVW40OSJIE O5LRNY3zZoljfTJ+PHRkIHN0 tEtjVYujJUNfzL9qJFOxP4e4Gy IaTmQ9MZtuU5LpZITftgdzAt89 vI3rCtDfDqF3MHsnM5IgcxB7 IPWcjXFoYNbcYLG7V03rg2J3AT AoJILnPTQ4vZG7sD3xlUicdyjn bGVmdDsgdmVydGljYWwtYWxp D678XJClvZidDnP8OfDaSbZ0YS O5F4XfIof8GGOeiCshJB9fkORm YGfpTx9szIftrQzwUD3zJXIs wviaNUNggY3jSLQciSAeiErwEJ 8dFABvuphib204HuOwXOK1LVIr bCKcQ3WzzU8dYwLtHPBbXLFk T8AbpAZjRPnsR060DHrnWrY8OF YbbyNsI2OpLHKebRgxJeL0j6B7 Vh5nEWAAPOTtbczavLB+PHRk WQN0dKtuFPnrGQHasU7oCESrS6 b0YtEiGkG9CPzrG1VhUAUccqbj En82wE4aFwQcHkO0BExlX9Pq taP9KHXbiGVsJJpxVQO3F71zn8 J3CMMvQMJfHTS5wTJ6mQ5zaTyw bjogbGVmdDsgdmVydGljYWwt FGezQ890ZAWcpSsoIoYdoQCgBS wvdGQ+TRFzWFH6vMohIReiQYNj xI0cBNWmV3y5NqJvJtE3KXyv O1DwYIWserxyRk54oX2bIyRfWm K4FDbdM0AdkpL8ILTooNVpJJwi GDM5S09hw8L4KKIvNJCnSPF1 aAJ6bE3spOekexvmsFDxtFunlc MnjGqcBOokCElgE826PKJqwZjd RzfoGtQYcr0iII6iXiuorEG+ LJ37kr92E9BuMorfAlp0ILVzCJ V2dXS5cM4uXKChHFasn0N8mSK0 W3TkdcZmlb2et6kfTKDbZCuz Y20jrIQov1O6OVNjnWU5OUOlaI irWcUdbD71Cho+KCVyjUalm2Eb Rikph9yec9gejVu2HkKqGFXh uvOvpHnaOBA5g7IgSm34B02gKD wjDCBrVGDgEZMsUSAqmPnkgo4k gA4jIf7+JEPnhCH2oOT3vA4m LlAxLoF3MHiiT809IiIfwRDjVj vdk6xmp3hfhOb2RbMgCLSvreXj iUgeKIT5b1LjNa00D0SuxOlt s4AuRpb9ia95lLQio6W1hRF5R5 LtULJrppfqvGTmpSrsSQ7hDDSt thprQMIcfP4vBLFkY1m7GxZi ZfV3XJzvC4UcwdI4JGPdiNMuSZ OcfNHXvQ4zkshxc1yqrrqzBjKh RNPgMQn0UHw0XGKykZdcXdFs IYZ4QfF9KXN3xWAxcF0aoXouud dprC1wXop+FMn4z5bxfXOiJE3v sOK6KV91QX63eDOtr2V5bCL9 X5RvXAWerruqmlmpiQQ3UCPhND FfvT54Cq4gnMwpCa3oYUIsOCO3 EBMlbAYwQ0VecR0nXdFsETZb EOUeC3FwwLNpDOtvY777HFlkMh R6ZKJfvkAuH4NwBIKkmQbdXfR8 f5W9Iy8SBL24GH34JI02kUTd c4E8hKZ1G2MpLCLjudhuelofnC P2WPAgFDPmhG69Iz1wcGhuHz6m HZGtLTF2RDWloOYmS0KoxW7e QmErFINlXKPoK4KuhMGaHIukR6 79CNiyHpJ9OWPyarXhT8TsKMSk mTzqExY1u7N1Cp1JEn83BG59 HV52yCHel5M5xOZ4L5FkYPFley uiajtjxJL1XVTuKZOhcT50Vq5r uLqtPv8yUXIwZVD5JDPxzUAw I6XxzB0tVpLsNQUiEZZxL8VcyO DtKCbsA798GIbzEkW7GOOfzhVg O4XmLXHzmUtdVoU5k6E4Oj4D WKejzlq8D9HdOeijxMR+PC90YW EgJL33vHPylNTne5fbfSt5KxGm ACJuLJC4gXwuROqip7GmTBRe Y29s (more content not included)... Normal [facility] Family Medicine Office/Clini c Noteon 12-27-2021 [...] Tobar to record this visit. JEAN CARLOS volunteer services specialist and provider reviewed before signing. Completed by: Rosa Isela Rouse/Angeli Ignacio. Pated by Priyanka Mosley, Quality Grill Prep Cook. Follow-up No qualifying data available Problem List/Past [...] acel/tetanus ad (more content not included)... Normal [facility] Comment on above: Result Comment: Elec tronically Signed By: Hayes Moura MD\.br\Date and Time Signed: 12/27/21 15:46 EST\.br\Electronically Co-Signed By: Priyanka Mosley\.br\Date and Time Co-Signed: 12/26/21 22:49 EST RENETTAOVon 01-02-2017 CNOV Office Visit (AGEXPHUD) [facility] PEORIACUCO ([id number]) 1995 FDate Time Provider Lspzdbfuza31/22/17 2:30 PM FANNY GROSS (DESMOND) AGEXPHUD During [...] Yes. To reduce yoursymptoms, you can:?Take an llwo-zmh-debfefr pain reliever to reduce the pain?Rinse your [...] baby.?A pulsating irrigation device (sample brand names: Faveryan HydroPulse,Neocleus Sinusense Water Pulsator) ? These are battery-powered [...] 4 - HivesDate Reviewed: 01/02/2017Reviewed by: Fanny ([facility]) Renato - Fully AssessedReason for Visit: [...] reduce your symptoms, you can: ?Take an tibx-kqm-ebtyvfa pain reliever to reduce the pain ?Rinse [...] with your doctor This topic retrieved from [facility] Patient education: Rinsing out your nose with [...] irrigation device (sample brand names: Grossan HydroPulse, WaterTowerView Health Sinusense Water Pulsator) ? These are battery-powered [...] out your nose. This topic retrieved from [employer] ordered this encounter Disp Refills Start End AMOXICILLIN 875 MG-POTASSIUM CLAVULA* 20 t* 0 01/02/2017 01/12/2017 Route: ORAL Sig: Take 1 tablet by mouth every 12 hours for 10 days.Disposition: Return if symptoms worsen or fail to improve.Follow-up and Disposition History RecordedEncounter Number: [id number] Status:Closed by FANNY GROSS CNP on 01/02/17 [facility] PROGRESSon 01-02-2017 PROGRESS HNO ID: [id number] thor: Fanny Banks) Arleyervice: (none)Author Type: Nurse [...] MG-POTASSIUM CLAVULANATE 125 MG TABLETFanny Gross CNP [facility] Office Visit (AGEXPHUD) CLAUSCUCO TEE ([id number]) 1995 FDate Time Provider Hultirnrgw71/2/17 8:15 AM FANNY GROSS (DESMOND) AGEXPHDANAY During [...] much?Breathing in harsh chemicals, such as manager strategic partnerships or gasoline?Drinking too much alcohol or smoking [...] Other causes of laryngitis are treated on vnhdv-bn-mzgn basis.-Voice rest is used for acute laryngitis, [...] Laryngitis, acute [J04.0]Order(s):ALERE STREP A TEST (AG) [5909368] Order #: [id number] THROAT CULTURE [SQTHRCUL] Order #: [id number] FUTURE lidocaine viscous (LIDOCAINE VISCOUS) 2 % [...] ?Breathing in harsh chemicals, such as manager strategic partnerships or gasoline ?Drinking too much alcohol or [...] causes of laryngitis are treated on a dnwv-fi-lrsr basis. -Voice rest is used for acute [...] to do for your baby. Retrieved from [employer] ordered this encounter Disp Refills Start End LIDOCAINE 2 % MUCOSAL SOLUTION 100 * 0 11/12/2016 Route: ORAL Sig: Take 5 mL by mouth four times daily as needed for Pain (swish and spit, do NOT swallow).Disposition: Return if symptoms worsen or fail to improve.Follow-up and Disposition History RecordedEncounter Number: [id number] Status:Closed by FANNY GROSS CNP on 11/12/16 [facility] PROGRESSon 11-12-2016 PROGRESS HNO ID: [id number] thor: Fanny Banks) Arleyervice: (none)Author Type: Nurse [...] Written educational material givenFanny Gross CNP Normal [facility] Throat Cultureon 11-12-2016 Throat Culture Test performed at [facility] No group A beta streptococci cultured. Normal [facility] Comment on above: Performed By: #### C THRT ####[address] [address] Vital Signs Date Time Vital Sign Value Performing Clinician Facility 03-14-2023 09:31-0500 Body mass index (BMI) [Ratio] 31.17 kg/m2 Cheyenne Bj DO Work Phone: [facility] 03-14-2023 09:31-0500 Body weight 92.99 kg Cheyenne Bj DO Work Phone: [facility] 03-14-2023 09:31-0500 Diastolic blood pressure 66 mm[Hg] Cheyenne Bj DO Work Phone: [facility] 03-14-2023 09:31-0500 Systolic blood pressure 130 mm[Hg] Cheyenne Bj DO Work Phone: [facility] 12-26-2021 13:47-0500 Blood Pressure Location Hayes Gudimella [facility] 12-26-2021 13:47-0500 Body temperature 96.8 [degF] Hayes Gudimella [facility] 12-26-2021 13:47-0500 Diastolic blood pressure 72 mm[Hg] Hayes Gudimella [facility] 12-26-2021 13:47-0500 Heart rate 67 /min Hayes Gudimella [facility] 12-26-2021 13:47-0500 Respiratory rate 16 /min Hayes Gudimella [facility] 12-26-2021 13:47-0500 SaO2% (BldA) [Mass fraction] 98 % Hayes Moura [facility] 12-26-2021 13:470502 Systolic blood pressure 112 mm[Hg] Hayes Moura [facility] Encounters Encounter Date Encounter Type Care Provider Facility Start: 06-19-2023 End: 06-19-2023 ambulatory CHEYENNE BJ Not Available Start: 06-12-2023 End: 06-12-2023 ambulatory CHEYENNE BJ [...] 11-05-2022 Emergency department patient visit Gorge Castro Facility:[facility] Start: 05-14-2022 End: 05-14-2022 ambulatory PRETTY SANGEETHA . Facility: Start: 12-26-2021 End: 12-27-2021 ambulatory MD Hayes Moura Facility:[facility] Start: 12-26-2021 End: 12-26-2021 Lab Drop off Hayes Gudimella [facility] Start: 12-26-2021 End: 12-26-2021 Patient encounter procedure Hayes Gudimella [facility] Start: 11-12-2016 End: 11-13-2016 Ambulatory FANNY (POLICE SURGEON) [facility] Start: 11-12-2016 End: 11-12-2016 Ambulatory FANNY (POLICE SURGEON) [facility] Procedures Date Procedure Procedure Detail Performing Clinician Start: 03-14-2023 Urnls dip stick/tabl et rgnt non-auto w/o micrscp Cheyenne Bj DO Work Phone: Start: 02-11-1998 Adenoid excision Hayes Gudimella Plan of Treatment Date Care Activity Detail Author Start: 04-04-2023 End: 04-04-2023 Patient encounter procedure 04/04/2023 9:10 AM EST Routine [facility] [address] [place] [id number] Pretty Vivas PA [address] [place] [address] [facility] Start: 10-12-2022 Influenza vaccination Influenza Vacc ine (#1) [facility] Immunizations Immunization Date Immunization Notes Care Provider Fa cility 04-16-2020 SARS-CoV-2 (COVID-19 ) mRNA-1273 vaccine Hayes Gudimella [facility] 01-12-2020 influenza virus vaccine, unspecified formulation Cheyenne Bj DO Work Phone: [facility] 11-16-2019 influenza, injectable, quadrivalent, contains preservative Hayes Gudimella [facility] 08-28-2019 tetanus toxoid, reduced diphtheria toxoid, and acellular pertussis vaccine, adsorbed Hayes Gudimella [facility] NEGATED: Highlighted row has not occurred!12-26-2021 influenza virus vaccine, unspecified formulation Hayes Gudimella [facility] Payers Date Payer Category Payer Unknown BCBS BCBS [id number] [id number] 2021-Present [phone] [address] [place] [address] [id number] 1993 Unknown [id number] 2.16.840.1.892615.3.579.2.593 1993 Unknown [id number] 2.16.840.1.244803.3.579.2.727 1993 Unknown [id number] 2.16.840.1.951198.3.579.2.727 1993 Unknown [id number] 2.16.840.1.071601.3.579.2.727 1993 Unknown [id number] 2.16.840.1.464013.3.579.2.727 1993 Unknown [id number] 2.16.840.1.610816.3.579.2.1259 1993 Unknown [id number] 2.16.840.1.448510.3.579.2.1259 1993 Unknown [id number] 2.16.840.1.168731.3.579.2.1259 1993 Unknown [id number] 2.16.840.1.261533.3.579.2.1259 1993 Unknown [id number] 2.16.840.1.749583.3.579.2.1258 1993 Unknown [id number] 2.16.840.1.300567.3.579.2.1258 1993 Unknown [id number] 2.16.840.1.113851.3.579.2.1258 1993 Unknown [id number] 2.16.840.1.005637.3.579.2.1258 1993 Unknown [id number] 2.16.840.1.134912.3.579.2.1258 1993 Unknown [id number] 2.16.840.1.581303.3.579.2.1258 1993 Unknown [id number] 2.16.840.1.390643.3.579.2.9 1959 Unknown [id number] Unknown [id number] Social History Date Type Detail Facility Start: 12-26-2021 Tobacco smoking status Ex-smoker (finding) [facility] Comment on above: denies denies Tobacco smoking status Never [facility] Comment on above: denies denies Sex Assigned At Female [facility] Tobacco smoking status NHIS Tobacco smoking consumption unknown [facility] Start: 10-05-2022 [facility] Start: 1993 Sex Assigned At Not on file N [facility] Functional Status Date Assessment Result Facility 12-26-2021 Functional Status N/A [facility] History of Present illness Narrative 03-14-2023 [...] nursing note reviewed. Exam conducted with a architectural model maker present. Vitals: Estimated body mass index is 31.17 kg/m as calculated from the following: Height as of 23: 5' 8 . Weight as of this [...] Cheyenne Lorenzo DO documented in this encounter [facility] Clinical Note 01-19-2022 Note Date & [...] Locations R1: This [facility] was performed at: [facility], [address] [place] [address], [id number] , , [facility] Comment on above: Performed By: #### [id number] #### [facility] [address] [place] [id number] Clinical Note 12-29-2021 Note Date & Type [...] R1: [facility] performed at: [facility], [address] [place] [address], [id number] , , [facility] Comment on above: Performed By: #### [id number] #### [facility] [address] [place] [id number] Evaluation + Plan note 12-26-2021 Note Date & Type Note Facility 12-26-2021 Evaluation + Plan note Diagnostic Tests PendingFluid Culture 12/26/21 [facility] Evaluation + Plan note Note Date & Type Note Facility Evaluation + Plan note No data available for this section [facility] Evaluation note Note Date & Type Note Facility Evaluation note Diagnosis Second trimester state, incidental documented in this encounter [facility] Discharge instructions Note Date & Type Note Facility Hospital Discharge instructions No data available for this section [facility] Progress note Note Date & Type Note Facility Progress note No data available for this section [facility] Summary Purpose Family History No Family History Records FoundNo Family History Records FoundNo Family History Records FoundNo Family History Records FoundNo Family History Records Found Advance Directives No Advanced Directives Records FoundNo Advanced Directives Records FoundNo Advanced Directives Records FoundNo Advanced Directives Records FoundNo Advanced Directives Records Found Additional Source Comments INFORMATION SOURCE (unrecogn ized section and content) DATE CREATED AUTHOR 08/06/2017 [facility] DATE CREATED AUTHOR AUTHOR'S ORGANIZ ATION 08/17/2017 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 [facility]. provides no warranty or guarantee of the accuracy or completeness of information in this document.
--- NOTE | 2023-06-25 14:55 | PC.NURSE ---
Rakesh and 4 day old daughter Mary arrive for follow up. Rakesh states everyone is doing well, easier the second time States everyone in family is adjusting well and big sister loves the baby Rakesh denies complaints for self or infant. VVS, initial Bp 145/97, 144/99, and 136/89 recorded at 15 minute intervals. Pt denies headache, visual disturbances or epigastric discomfort. Denies elevated BP in the past. Was running late to appointment. TC to [employer] Messer/SHANTELLE at Dr Lorenzo office. called back after talking to Dr Lorenzo, requests pt have BP check in office Saturday06/26/2023 AM. Pt verbalized understanding. Assessment WNL, slight edema of feet and ankles noted, soft with easily palpated pulses. small vaginal bleeding, using sebas bottle, and tucks for care. Milk in yesterday, baby had difficulty latching and nipples are excoriated slightly bilaterally. Using good latch technique and lanolin for care. Baby VSS and assessment WNL. Mom reports 8 wets and 5 yellow stools today, feeds every 2 hours during the day and 3-4 at night with little snacks in between if needed. Weight is up since discharge. No concerns noted by mom or LC. Infant feeds well after exam. Home ambulatory without further concerns. Aware of [facility] group.
[2023-06-25 16:23] VITALS: BP 145/97; PULSE 66; TEMP 36.8; O2SAT 96
== END 2023-06-25 16:33 | disposition home or self-care (01) ==
LOC: FBCO 08:19
PROVIDERS: Visit Provider Obstetrics & Gynecology
DX: Z39.2 Encounter for routine postpartum follow-up (principal)

== ENCOUNTER 2023-11-04 21:09 | Outpatient (REF) | payer BC, SELFPAY ==
--- OUTSIDE RECORDS SUMMARY | 2023-11-04 21:15 | XMS_ITS | CCD ---
Author Organization [facility] Care Team Providers Care Special Education Aide Name Role Phone FANNY GROSS (WELD TECHNICIAN) Unavailable Unavailab le MOSNEAG FANNY (WELD TECHNICIAN) Unavailable Unavailab le IMCA Unavailable Unavailable RENATO FANNY E Unavailable Unavailable Sherri CHEUNG Primary Care Physician PRETTY MCGRAW Admitting Unavailable PRETTY MCGRAW Attending Unavailable [facility] Ferrari Primary Care Unavailable PRETTY MCGRAW Consulting Unavailable MD Zeny Hayes Attending Unavailable MD Zeny Hayes Admitting Unavailable Gorge Castro Attending Unavailable MD Zeny Hayes Attending Unavailable MD Zeny Hayes Attending Unavailable MD Zeny Hayes Admitting Unavailable Alex Lopez MDyse Primary Care Provider PRETTY VIVAS Attending Unavailable BJ, CHEYENNE Attending [...] reactions to drug (disorder) 7 AOF [facility] Other [place] [facility] (7 sources) Sulfonamides (Antibiotic); Translations: [sulfa drugs] Drug allergy [facility] (1 source) Sulfonamides (Antibiotic) Drug allergy (disorder) [facility] (1 source) Sulfonamides (Antibiotic) Drug Allergy 3 Unknown [facility] Medications Current Medications Medication Drug Class(es) Dates Sig (Normalized) Sig (Original) clotrimazole 10 mg/ml topical cream (6 sources) Azole Antifungal Start: 12-26-2021 clotrimazole Top 1% Crm 1 lenin, Topical, BID, 24 gram, Refill(s) 0, [id number], 175, cm, 12/26/21 13:50:00 EST, Height/Length Dosing, [...] UA Negative Negative - 4(70) +++ mg/dL [facility] Work Phone: Blood, UA Negative Negative - 50 Jarrett/mcL [facility] Work Phone: Clarity, UA Clear [facility] Work Phone: Color, UA Yellow [facility] Work Phone: Glucose, UA Positive Negative - 1999(110) ++++ mg/dL [facility] Work Phone: Comment on above: 100 Interpretation and review of laboratory results Abnormal [facility] Work Phone: Ketones, UA Negative Negative - 160(16) ++++ mg/dL [facility] Work Phone: Leukocytes, UA Moderate Negative - 500+++ Brooke/mcL [facility] Work Phone: Nitrite, UA Negative Negative - Positive [facility] Work Phone: pH, UA 7.0 5 - 9 [facility] Work Phone: Protein, UA Negative Negative - 2000(20) ++++ mg/dL [facility] Work Phone: Spec Grav, UA 1.010 1 - 1.03 [facility] Work Phone: Urobilinogen, UA 0.2 0.2 - 12 mg/dL [facility] Work Phone: [facility] Work Phone: ED Note-Physicianon 11-12-19 [...] and Complexity of Problems Differential Diagnosis: [] [facility] Data External documents reviewed: Not applicable [...] day(s), # 14 cap(s), Refills(s) 0, Pharmacy: [id number], 173, cm, 11/04/22 21:16:00 EDT, Height/Length Dosing, 90.6, kg, 11/04/22 21:16:00 EDT, Weight Dosing Disposition Plan Patient Discharge Condition Stable Discharge Disposition To home Discharge Prescription List Prescriptions cephalexin 500 mg Cap, 500 mg= 1 cap(s), Oral, q12hr Follow-up With When Contact Information Sherri CHEUNG In 3 days 11/07/2022 EDT [address] [facility] [place] [address]- Business (1) Additional Instructions: Call the office [...] Patient seen and evaluated by the physician pharmacy technician assistant. Attending physician was present in the emergency department and supervised care. This visit was performed by both the physician and an APC. I performed all aspects of the MDM as documented. This report was transcribed using voice recognition software. Every effort was made to ensure accuracy, however, inadvertently computerized frame expander mistakes may be present. Appropriate healthcare PPE was used in evaluating this patient. The patient was placed in a mask. The healthcare provider was wearing mask, gloves, and util (more content not included)... Normal [facility] Comment on above: Result Comment: Elec tronically Signed By: Bud Parker PA-C\.br\Date and Time Signed: 11/04/22 22:25 EDT\.br\Electronically Co-Signed By: Gorge Castro MD\.br\Date and Time Co-Signed: 11/11/22 20:46 EDT Discharge Instructionson Discharge Instructions [id number]:12 [id number] Normal [facility] ED Clinical Summaryon 2022 ED Clinical Summary [address] [address] ED Clinical Summary Person Information Name: CUCO CARDENAS Gui Peoples/[facility] Age: 27 Years : 1995 Sex: Female Language: Danish PCP: Sherri CHEUNG MD Marital Status: Single [...] 11/04/2022 22:37:58 11/04/2022 22:37:58 11/04/2022 22:37:58 ADDRESS: [address] [place] [id number] PHYS DOC NOTES: MEDICAL INFORMATION: Prescriptions Given: New Medications [id number], [address] [place], [place] [id number], [phone] cephalexin (cephalexin 500 mg Cap) 1 Capsules [...] Avulsion Follow up: With: Address: When: Sherri CHENEYFIELD [address] [place] [address] [address] [id number] [facility] (1) In 3 days 11/07/2022 Comments: [...] worsening symptoms. DIAGNOSIS: Fingertip avulsion Normal [facility] ED Patient Education Noteon 11-05-2022 [...] even if your condition improves. ? Take hylk-ipa-mlgvmax and prescription medicines only as told by [...] and water are not available, use hand plant safety engineer. ? Change your dressing as told [...] a (more content not included)... Normal [facility] ED Patient Summaryon 023 ED Patient Summary (Inserted Image. Marylu ble to display) [address] [address] Patient Discharge Instructions Person Information Name: CUCO CARDENAS Age: 27 Years Arrival Date: 11/04/2022 21:10:12 Discharge Diagnosis: Fingertip avulsion Primary Care Physician: JONATAN STEINBERG, Sherri Milligan Provider Information Primary Provider: Advanced Lap Machine Operator:Bud Parker PA-C The exam and treatment you received in the Emergency Department were for an urgent problem and are not intended as complete care. It is important that you follow up with a doctor, nurse practitioner, or physician?s pharmacy technician assistant for ongoing care. If your symptoms [...] Follow-up Instructions: With: Address: When: Sherri CHEUNG [address] [place], [place] [id number] Business (1) In 3 days 11/07/2022 Comments: [...] opioids can be used to help relieve xjkynlqm-ri-nqulet pain and are often prescribed following a [...] Safely (more content not included)... Normal [facility] Consent for Treatmenton 10-13 Consent for Treatment [id number]#[id number]:127 Normal [facility] PAP ACOG PANEL 2: 21 to 29on 05-21-2022 . . Normal [facility] Comment on above: Performed By: #### 4 [id number] #### [facility] [address] [place] [address] Dr. Jewels Looney Age Gdln ACOG Testing 21-29 Normal [facility] Comment on above: Performed By: #### 4 [id number] #### [facility] [address] [place] [address] Dr. Jewels Looney DIAGNOSIS: Comment [facility] Comment on above: Result Comment: NEGA TIVE FOR INTRAEPITHELIAL LESION OR MALIGNANCY. Performed By: #### 4 [id number] #### [facility] [address] [address] [address] Jewels Looney Methodology: Comment [facility] Comment on above: Result Comment: This liquid based ThinPrep(R) pap test was screened with the use of an image guided system. Performed By: #### 4 [id number] #### [facility] [address] [place] [address] Dr. Jewels Looney Note: Comment [facility] Comment on above: Result Comment: The Pap smear is a screening test designed to aid in the detection of premalignant and malignant conditions of the uterine cervix. It is not a diagnostic procedure and should not be used as the sole means of detecting cervical cancer. Both false-positive and false-negative reports do occur. . Performed By: #### 4 [id number] #### [facility] [address] [place] [address] Dr. Jewels Looney Performed by: Comment Normal [facility] Comment on above: Result Comment: Rosita Haines, Salesperson Furniture (ASCP) Performed By: #### 4 [id number] #### [facility] [address] [place] [address] Dr. Jewels Looney Reflex Criteria: Comment [facility] Comment on above: Result Comment: The HPV DNA reflex criteria were not met with this specimen result therefore, no HPV testing was performed. . Performed By: #### 4 [id number] #### [facility] [address] [place] [address] Dr. Jewels Looney Specimen adequacy: Comment Normal [facility] Comment on above: Result Comment: Sati sfactory for evaluation. Endocervical and/or squamous metaplastic cells (endocervical component) are present. Performed By: #### 4 [id number] #### [facility] [address] [place] [address] Dr. Jewels Looney Reminderson 01-19-2022 Reminders - From: Hayes Moura MD To: [facility] - Clinical; Sent: 01/16/2022 15:19:01 EST [...] declines any questions or concerns. Normal [facility] Coding Summary.on 12-31-2021 Coding Summary. CD:[id number] Gh0bWw +PGhlYWQ+JZ4ETTWbJ66kzMBsk I4SB4gSEL1QWGAHODWWGF2RMR6 igIO4XYhrF6XrxzGf UxgmrZBuNH22RLj7SGW6sVyuBJ hyjD4tuBEtT1j7SzPbRD09bL40 IOgySZWkXuY4XsOlymjxlHRq W8xzWzGyrWEnZgr+PHRhYmxlIH ewNXUgCIgnMVMaPdChsHbdQE5k Py6hBMEdQQVhmRjwkAQoNzCd n7xbPBBiPAubZY8tjBxkQ6DtkI U0JMXcb3q1Lq96nWE+PHRkIHN0 zVrzMHrza244SeNdk0ufALW0 qVRdYPzkSMA1H04nl3K4EHEcYE PxUMD2eNR6wQ5oaWecokttE6Lo gARgPxC2EYI9dEJjiX1soDeo khlscR9fMhh+H80JOC3AFPRSXV 7HFxn7H7BgExygkCB+QV68GHEv IO31gERewKUlo3vguGl2XoXu DWCzEZA2lFauXApok8KfMHYeB3 1lyZTic8T2ULNdgJhpxJDwNvLz nHR6kY2oKZctstrfn1wlgizx Ywsqt8rysp79yE92Q60tKMobJY ZvPLK1HQUgMVLklAaydt2yrA0h Ii8+WArzb1dam1rmcBr2EcIv OKDfasOjdMkaKFG4j0OrVt42G8 TznQure0NaQfv7si85dLZqj7C9 oEP6FGggKSFqlU5dMHlpElJ9 OSOnWhDlwQ53wCKbNBavYc4aeM svzZcaXH4vBBJmlsxiMRZdnC1f RFZkoAOkmNqdSV5pBSPzpdou y993IoPlHMP2EAUcsXQqA9AjvY 1qIgGzLMDlASHwK0PsiOJzXLgc W075JMtjZiK0ONKhwfGtI6Mf IVOztGrcHcL1z5U0Ts2Tm0Drbr mnBJC5DAtzVHCaXxDnKsBeMfC4 M9NlOso2HSJfrFjaXP9eY7Yk KQPnqrgitituxCI6BKIdZSWsrL 19eWDkSXlhEq3ku8J8x710YBEq EQTdrY39Lz9svNrtGMHkgLWI nS9wpqhde5fcxgrhXlHjEEVnWT m5ALk2YAPojDjoViLdQVD8HhT8 BXJ3aOMggQ6aoGnixlyveZ7l Oyc+K14dnJ2jJAR2LBT7elgeYS LbtlFqTC25OR82L8GiVewakIUh bGU+VATctjNozEagTB8iBhXi t8wro7BzFSegA5WeLADcFDltSv r3FGVbWHA4yEP3uQ1jXZSlUBql e7F8wQU9X0VsqoHugt2ld3kq UDLvMTotZ08rhBPac8Q6BSKepN Z8XIIeaTrzGsRpfK54Rhn+PGNv gHqwm3WfKbjui6erg5vcvIu5 ZySvZJLchmDnqUefIBY9v7UgOv 75G39vXFisYCYiKEKmOEObTVIu aJjcap0lxD4pWu8+PGNvbCB3 lLG5sU7sDLQwDmC4MZqkX254Ww HvzCHqDmsay6prd4tzsHa6LsJh KJIofcKsaKxpQEO4b8IrSx43 I64xUWvfUCSkNLIfDMAoFKRvwH frlz7fkE8xWo9+JD1al4yhvz56 rR70tJQ+USFtOWT0nUrxOCqf DLGhcV8iEAhlKgW9EOIrPaVjmN 26wUNxJMimJz8zsVntlLcnYA8m VQGocnixq446XsNkk2jlPRKr fQRjVQzcKAP1I76bk7S8WAYhPE GqETT0dQD1jQ9wwBomivysrDOu jJzadeYdeYkpDKdnHMnkA730 IHRvcDsnPlBhdGllbnQgTmFtZT y7U5VdJin7NGRnbQqaKP5cwDXp QMfjTe7dmZccnDnqKH6yLPDs hcakl383EeUvo6upPRTfsGRvUY lcWDU3R84yh8P6BMExIOBdCLQ8 wCB7qE5syMjrtwwppLWsnCtg hnTjuNqoEAifLNovT587YUTmaH meTiKzngVxMEEklDE1UQ58KQ16 qCUey4B2oVE6X2XlDILfhgwy wfgpvOR5BUGiBGYdoT62Pu4tjW ysJv8mUZNnKJX5MRUjuGBkI1Ie hB5hIfZpYTRlDYZzF2NcdGOd RQjzG243NTtzPwP2PELfpfGuC7 ZgSGAebYysXmK8z6F1Na8ZT8F6 JJ78VP28yJVvo3U2kOS5C5Sq NTVulchzuynijRF3NSUvODNryO 75Ew2qkAglUz7uRXCpYJG6IMNa aMJsS3PhtL3zJvAvNCIuWUYs B4LueDBsWJkeW959DOpnWbI1RZ CakcFqN6IwMUOxbMuqJwU9b3V9 At3VUGj5AH42SJ64eMJym7C6 dIG5C4AwRMDjcgmtcffneKR7GC RkSLVchQ21Na2caKznPd8cDALo CTX1ZGTvcEBwC7VguH3nOlRm ICLqTXRqY4XmeYHnLOlbT985CP xiAqY2VCLfiwEeY9NuZTDecLwd JsJ7v3B3Sv2ZEFVgLF06ULN6 iMU4NP04SF38I0GpSuwjjFQbcJ U+PHRhYmxlIHdpZHRoPScxMDAl QlHpoHflUG6aFt5oLJJeXKBi gItzeYOjQrVsk4utFXApPOhrHE 8mzMyvL9BdcTE3OQMkz3y0Od22 W96iW5FhuZN+YPUvlTZ6iJI2 qU9eYgOeSqA9BKchG568SsDomD LfUibhp1hzf2hfzQh4OoH0IEWu yrPwyZpcPFE8g9DdRb82R03b IHdpZHRoPSIxNSUiIHZhbGlnbj 9baC0gLl9+VRMylVK6wJX7lU4e CnUoBbW1YKtbC245PxLonVNk Wkint9mlh1xgzOd5KxDhLXZvyb TshVjkVMR9b9RhAp78T7DovOar i3WcCti1gk54kOWhi1V0kVP6 S7RiFQIzaomlvYSuoRfrRM5iVH FclbmrOYXnpM1qAAFzH4z6JkSb CzA0TFihM7RfnsQ1PQBxeHZm WOttINQ6R83xv1L4PZVkBYBxUR T5dXR5gK3prVtkbvjcuUVswGdp kdPaaCqfWEcoOKhiD623ORPp zAkrQSYtdJ1cTMYnlUCalXtnDK 6nDHEjgpkdGiSHIKDTR13VIYOZ X4QBQA7vHloriHN+PHRkIHN0 oVufMBbmHUAahV5mGXHeC1s8Cg AaSbY6MBfeK9LlBTOocspsRs42 vV9iLcZdSfN2XFmcN1OoztI4 TGNgwOMnZQxfGGZ0P74ty6X5BY NhRDJaQBH2gAY1lS0ycMbyhtln bGVmdDsgdmVydGljYWwtYWxp N416NCZkdYleQhA1TuHsZfL4AZ U1V5OwPhr5MCThyZvzHA0mrARu VJlyJi4uuBtlzBujBF4iIZAo hghhUUUkgT8oQEDojKEroBptPK 8qZTWzrdnkm237FzOmQLX9NRRc uZIpR1PyxC8iEdRbZQTvPEHj K7UevQCyVTmzJ956HWpwDaU2XO VdkcGfC9HmTQQqbDrhGjZ2q7O1 Pk9pJEOQQWZmautwqSF+PHRk OIW2pXdoSUuqDMAozW9rVNEhD9 w9YeIpRyT5MMdtJ1LgGHHhhdqv Kt12zG7kBmSjJoV1VGljC2At nbF2SMMikTKyNHpyANJ0G91vh3 Y7ELJgJIYxFIS3lAR7xK3dsEij bjogbGVmdDsgdmVydGljYWwt UZdgM094IVMumSavTbImeGOyOU wvdGQ+KNToZNO3qMozNEnvMXPj gX0lJLVuL5f8RiJhXvF7WNtk G6DeZIGkyslaKd61iR8iObFzRp B1NDuuA3ClpuI9BPBhxLNjSFqh AGY7X62nv2M6HTXsJDDoRDS0 vXZ5eQ2lyElsqfndkPQweBvfqw FveNsqIZbiILrzT749QBEcyNbl CszrKaTYge2kHO0rYakyfLL+ HS02um12V1XkPyppUkw9RQPqYB R5dUS0oX2kGKUwANvah9B2jNA8 F0KsevBmno9yj6euHLAlDJel S52ngLBux7T5WPYumMT4WKVwmN jwDsRzwV21Iay+ZXJtxJazo6Mv Kvpix1xlv2oefYr2BaZoOSOr hiHrlKmnBUO3m4MfEc48C46dQN wtTWCnJWPuGUInNRGexGpraq0a nX1gGh0+JOIvtVX2uWC9qK5p JqJwGgU7KJjmU154BtPpvBHqSi gvv3fff2xutPr5FeQmGPLcrgBy wEyiRLU6d9KtZo39C0IugDbj n1SlHch2bl51sWRam2J6fVM8S3 QaNENnvxhxiIVyjJmwUD6dHYPm hozwYZWhnB3pEGApW0t0IzNb XlY7OJgqL7VjcmN0PNLvvQIdDK OfjSJUpC0tiukbq9yyymitHuIh VFAmVHh7QFg5VGBabQluJkPp SJZ0AvI5QHW7hBMwzW5pdMohfn jktK7zBaq+DIc8a4pqgEJeSW6m wYT6SZ99NO36jEVmy6B9yLB8 E8TjTNKtugzwliymqYV1MPHzVG MpaF57Eh6kmSfkFr1vWIWxGRL4 NEOqcWOcO4DdaO3lCdXvTEBm NGNtR7YnkOLdTRdoP497ROqlFm S4AARaooPcW4TyJSZfcNogWuJ2 d5E8Uo7PBA66GL17QN72uUIz d6A2gUV0Q1AaRMGjznvivtxryP T7HFZbUJDnaB09Tl5eaVplTf0h ENIuYQZ3NHIwtUTjK8HvaV4r BhAzDOEgAUFcB0JokDFyLEhjG2 46ZMsdEjO4AICtmwSyY4CnYLKu vRngLmQ7q8C2Fq8BKf13TR44 QR99cPZar3U5nUD6H7HsBZSfxa mzpnbwyBY4YVEmSOPnqO89Rd8c nSieQo2zIIOiWTK7MUOokWYj S3YsmK6oQyCdEBYzRBByI3SwbT AjLAnpO044HVywCeX3BIZtcxNa J2BrHYAixHewEyR3l0A0Hr1M KCpjjuq0W6CxVsbtoNK+PC90YW TmVH60xSRtnHPcv8ypyEb2ZwJw PQJqOAT9fCxgTVqvn8XlEORm Y29s (more content not included)... Normal [facility] Family Medicine Office/Clini c Noteon [...] Tobar to record this visit. JEAN CARLOS export specialist and provider reviewed before signing. Completed by: Rosa Isela Rouse/Angeli Ignacio. Pated by Priyanka Mosley, Quality Suction Drum Drier Operator. Follow-up No qualifying data available Problem [...] ad (more content not included)... Normal [facility] Comment on above: Result Comment: Elec tronically Signed By: Hayes Moura MD\.br\Date and Time Signed: 12/27/21 15:46 EST\.br\Electronically Co-Signed By: Priyanka Mosley\.br\Date and Time Co-Signed: 12/26/21 22:49 EST CNOVon 01-02-2017 CNOV Office Visit (AGEXPHUD) [facility][id number][facility] 1995 FDate Time Provider Jevvsahath52/22/17 2:30 PM FANNY GROSS) AGEXPHUD During your [...] worsen.- AMOXICILLIN 875 MG-POTASSIUM CLAVULANATE 125 MG Pancho Bailey CNP 01/02/2017 2:39 PM SignedBP 125/75 Pulse [...] Yes. To reduce yoursymptoms, you can:?Take an qkhc-lre-qkxtfvq pain reliever to reduce the pain?Rinse your [...] baby.?A pulsating irrigation device (sample brand names: Clustrix HydroPulse,Neuronetics Sinusense Water Pulsator) ? These are battery-powered [...] 4 - HivesDate Reviewed: 01/02/2017Reviewed by: Fanny ([facility]) Renato - Fully AssessedReason for [...] reduce your symptoms, you can: ?Take an kigc-tsr-auvdwfu pain reliever to reduce the pain ?Rinse [...] with your doctor This topic retrieved from [facility] Patient education: Rinsing out your nose with [...] irrigation device (sample brand names: Grossan HydroPulse, WaterpiBellco Sinusense Water Pulsator) ? These are battery-powered [...] to improve.Follow-up and Disposition History RecordedEncounter Number: [id number] Status:Closed by FANNY GROSS CNP on 01/02/17 [facility] PROGRESSon 01-02-2017 PROGRESS HNO ID: [id number] thor: Fanny (Shan) Arleyervice: (none)Author Type: Nurse PractitionerType: Progress NotesFiled: [...] CNP [facility] CNOVon 11-12-2016 OV Office Visit (AGEXPHUD) CLAUSCUCO TEE ([id number]) 1995 FDate Time Provider Nszknlmurh65/2/17 8:15 AM FANNY GROSS) AGEXPHDANAY During your visit today, we recorded [...] too much?Breathing in harsh chemicals, such as trace clerk or gasoline?Drinking too much alcohol or smoking [...] Other causes of laryngitis are treated on oqkqg-lh-ookz basis.-Voice rest is used for acute laryngitis, [...] 4 - HivesDate Reviewed: 11/12/2016Reviewed by: Fanny (Electronics Supervisor) Renato - Fully AssessedReason for Visit: Sore [...] Laryngitis, acute [J04.0]Order(s):ALERE STREP A TEST (AG) [[id number]] Order #: [id number] THROAT CULTURE [SQTHRCUL] Order #: [id number] FUTURE lidocaine viscous (LIDOCAINE VISCOUS) 2 % [...] much ?Breathing in harsh chemicals, such as trace clerk or gasoline ?Drinking too much alcohol or [...] to 7 days Call an ambulance (dial 9- in the [place] and [place]) or go [...] causes of laryngitis are treated on a mgoi-an-snke basis. -Voice rest is used for acute [...] to do for your baby. Retrieved from [employer] ordered this encounter Disp Refills Start End LIDOCAINE 2 % MUCOSAL SOLUTION 100 * 0 11/12/2016 Route: ORAL Sig: Take 5 mL by mouth four times daily as needed for Pain (swish and spit, do NOT swallow).Disposition: Return if symptoms worsen or fail to improve.Follow-up and Disposition History RecordedEncounter Number: [id number] Status:Closed by FANNY GROSS CNP on 11/12/16 [facility] PROGRESSon 11-12-2016 PROGRESS HNO ID: [id number] thor: Fanny Banks) Arleyervice: (none)Author Type: Nurse [...] Written educational material givenFanny Gross CNP Normal [facility] Throat Cultureon 11-12-2016 Throat Culture Test performed at [facility] No group A beta streptococci cultured. Normal [facility] Comment on above: Performed By: #### C THRT ####[address] [address] Vital Signs Date Time Vital Sign Value Performing Clinician Facility 03-14-2023 09:31-0500 Body mass index (BMI) [Ratio] 31.17 kg/m2 Cheyenne Bj DO Work Phone: [facility] 03-14-2023 09:31-0500 Body weight 92.99 kg Cheyenne Bj DO Work Phone: [facility] 03-14-2023 09:31-0500 Diastolic blood pressure 66 mm[Hg] Cheyenne Bj DO Work Phone: [facility] 03-14-2023 09:31-0500 Systolic blood pressure 130 mm[Hg] Cheyenne Bj DO Work Phone: [facility] 12-26-2021 13:47-0500 Blood Pressure Location Hayes Gudimella [facility] 12-26-2021 13:47-0500 Body temperature 96.8 [degF] Hayes Gudimella [facility] 12-26-2021 13:47-0500 Diastolic blood pressure 72 mm[Hg] Hayes Gudimella [facility] 12-26-2021 13:47-0500 Heart rate 67 /min Hayes Gudimella [facility] 12-26-2021 13:47-0500 Respiratory rate 16 /min Hayes Gudimella [facility] 12-26-2021 13:47-0500 SaO2% (BldA) [Mass fraction] 98 % Hayes Gudimella [facility] 12-26-2021 13:47-0508 Systolic blood pressure 112 mm[Hg] Hayes Gudimella [facility] Encounters Encounter Date Encounter Type Care Provider Facility Start: 08-05-2023 End: 08-05-2023 ambulatory CHEYENNE BJ Not Available Start: 06-26-2023 End: 06-26-2023 ambulatory PRETTY SANGEETHA Not Available Start: 06-19-2023 End: 06-19-2023 ambulatory CHEYENNE BJ [...] End: 11-05-2022 Emergency department patient visit Gorge Matthew Facility:[facility] Start: 05-14-2022 End: 05-14-2022 ambulatory PRETTY VIVAS . Facility: Start: 12-26-2021 End: 12-27-2021 ambulatory MD Hayes Moura Facility:[facility] Start: 12-26-2021 End: 12-26-2021 Lab Drop off Hayes Zeny [facility] Start: 12-26-2021 End: 12-26-2021 Patient encounter procedure Hayes Yateschristina [facility] Start: 11-12-2016 End: 11-13-2016 Ambulatory FANNY (WELD TECHNICIAN) [facility] Start: 11-12-2016 End: 11-12-2016 Ambulatory FANNY (WELD TECHNICIAN) [facility] Procedures Date Procedure Procedure Detail Performing Clinician Start: 03-14-2023 Urnls dip stick/tabl et rgnt non-auto w/o micrscp Cheyenne Bj DO Work Phone: Start: 02-11-1998 Adenoid excision Hayes Zeny Plan of Treatment Date Care Activity Detail Author Start: 04-04-2023 End: 04-04-2023 Patient encounter procedure 04/04/2023 9:10 AM EST Routine [facility] [address] [place] [address] Pretty Vivas PA [address] [place] [address] [facility] Start: 10-12-2022 Influenza vaccination Influenza Vacc ine (#1) [facility] Immunizations Immunization Date Immunization Notes Care Provider Fa cility 04-16-2020 SARS-CoV-2 (COVID-19 ) mRNA-1273 vaccine Hayes Zeny [facility] 01-12-2020 influenza virus vaccine, unspecified formulation Cheyenne Bj DO Work Phone: [facility] 11-16-2019 influenza, injectable, quadrivalent, contains preservative Hayes Gudimella [facility] 08-28-2019 tetanus toxoid, reduced diphtheria toxoid, and acellular pertussis vaccine, adsorbed Hayes Gudimella [facility] NEGATED: Highlighted row has not occurred!12-26-2021 influenza virus vaccine, unspecified formulation Hayes Gudimella [facility] Payers Date Payer Category Payer Unknown BCBS BCBS xxxxxx [id number] 2021-Present [phone] [address] [place] [address] [id number] 1993 Unknown [id number] 2.16.840.1.756297.3.579.2.593 1993 Unknown [id number] 2.16.840.1.803216.3.579.2.727 1993 Unknown [id number] 2.16.840.1.043673.3.579.2.727 1993 Unknown [id number] 2.16.840.1.946295.3.579.2.727 1993 Unknown [id number] 2.16.840.1.866233.3.579.2.727 1993 Unknown [id number] 2.16.840.1.162781.3.579.2.1259 1993 Unknown [id number] 2.16.840.1.340018.3.579.2.1259 1993 Unknown [id number] 2.16.840.1.199804.3.579.2.1259 1993 Unknown [id number] 2.16.840.1.004037.3.579.2.9 1993 Unknown [id number] 2.16.840.1.239844.3.579.2.9 1993 Unknown [id number] 2.16.840.1.094582.3.579.2.9 1993 Unknown [id number] 2.16.840.1.370273.3.579.2.1258 1993 Unknown [id number] 2.16.840.1.637150.3.579.2.1258 1993 Unknown [id number] 2.16.840.1.317139.3.579.2.1258 1993 Unknown [id number] 2.16.840.1.511768.3.579.2.9 1993 Unknown [id number] 2.16.840.1.645445.3.579.2.1258 1993 Unknown [id number] 2.16.840.1.626958.3.579.2.1258 1993 Unknown [id number] 2.16.840.1.606085.3.579.2.9 1959 Unknown [id number] Unknown [id number] Social History Date Type Detail Facility Start: 12-26-2021 Tobacco smoking status Ex-smoker (finding) [facility] Comment on above: denies denies Tobacco smoking status Never [facility] Comment on above: denies denies Sex Assigned At Female [facility] Tobacco smoking status NHIS Tobacco smoking consumption unknown [facility] Start: 10-05-2022 [facility] Start: 1995 Sex Assigned At Not on file [facility] Functional Status Date Assessment Result Facility 12-26-2021 Functional Status N/A [facility] History of Present illness Narrative 03-14-2023 [...] nursing note reviewed. Exam conducted with a application spec present. Vitals: Estimated body mass index is [...] Cheyenne Lorenzo DO documented in this encounter [facility] Clinical Note 01-19-2022 Note Date [...] R1: This test was performed at: [facility], [address] [place] [address], [facility]- , , [facility] Comment on above: Performed By: #### [id number] #### [facility] [address] [place] [address] Clinical Note 12-29-2021 Note Date & Type [...] Locations R1: This test was performed at: [facility], [address] [place] [address], [id number]- , [place], [facility] Comment on above: Performed By: #### [id number] #### [facility] [address] [place] [address] Evaluation + Plan note 12-26-2021 Note Date & Type Note Facility 12-26-2021 Evaluation + Plan note Diagnostic Tests PendingFluid Culture 12/26/21 [facility] Evaluation + Plan note Note Date & Type Note Facility Evaluation + Plan note No data available for this section [facility] Evaluation note Note Date & Type Note Facility Evaluation note Diagnosis Second trimester state, incidental documented in this encounter [facility] Discharge instructions Note Date & Type Note Facility Hospital Discharge instructions No data available for this section [facility] Progress note Note Date & Type Note Facility Progress note No data available for this section [facility] Summary Purpose Family History No [...] section and content) DATE CREATED AUTHOR 08/06/2017 [facility] DATE CREATED AUTHOR AUTHOR'S ORGANIZ ATION 08/17/2017 [facility] DATE CREATED AUTHOR AUTHOR'S ORGANIZ ATION 05/21/2022 [facility] pital DATE CREATED AUTHOR AUTHOR'S ORGANIZ ATION 11/16/2022 [facility] DATE CREATED AUTHOR AUTHOR'S ORGANIZ ATION 08/06/2023 [facility] EPIC Patient Care team informatio n (unrecognized section and content) Special Education Aide Relationship Specialty Start Date End Date Alexandra Lopez MD [address] [place] [phone] PCP - General Family Medicine 11/16/22 Reason [...] BE BASED ON THE PRIMARY CLINICAL RECORDS. [employer] provides no warranty or guarantee of the accuracy or completeness of information in this document.
== END 2023-11-04 21:10 | disposition home or self-care (01) ==
LOC: LAB 21:09
PROVIDERS: Visit Provider Obstetrics & Gynecology
DX: Z01.419 Encounter for gynecological examination (general) (routine) without abnormal findings (principal)
CPT/HCPCS: 87624; 88175

== ENCOUNTER 2024-12-16 15:03 | Outpatient (REF) | payer OTHER, SELFPAY ==
--- OUTSIDE RECORDS SUMMARY | 2024-12-16 09:00 | XMS_ITS | Encounter Summary ---
Author Organization [facility] Address [address] [place] [address] Care Team Providers Care Tool Inspector Name Role Phone Alexandra Lopez MD Primary Care Provider [phone] Reason for Visit * ReasonCommentsGynecologic Exam Encounter Details DateTypeDepartmentCare Team (Latest Contact Info)Cpojznmvdco90/05/2025 9:00 AM ESTOffice Visit [facility] [address] [address] Vanessa Pichardo, SHANTELLE [address] [place] [address] Well woman exam with routine gynecological exam Social History Tobacco UseTypesPacks/DayYears UsedDateSmoking Tobacco: Never Assessed CommentsNoSex and Gender InformationValueDate RecordedSex Assigned at BirthNot on fileLegal CaqSotndu77/29/2023 10:08 AM EDTGender IdentityNot on fileSexual OrientationNot on filedocumented as of this encounter Last Filed Vital Signs Vital SignReadingTime TakenCommentsBlood Qhwgpoyt919/7612/16/2024 9:17 AM EST Pulse--Temperature--Respiratory Rate--Oxygen Saturation--Inhaled Oxygen Concentration--Xfmxve65.3 kg (208 lb)12/16/2024 9:17 AM RVEDonujr154.7 cm (5' 8 )12/16/2024 9:17 AM ESTBody Mass Index31.6311 9:17 AM ESTdocumented in this encounter Progress Notes * Tesha Fisher MA - 12/16/2024 9:00 AM EST Reason for Appointment: Patient ID: Rakesh Cardenas is a 29 y.o. female who presents for Gynecologic Exam Patient presents today for Annual Exam. MEDICATIONS Current Outpatient Medications Medication Instructions FLUoxetine (PROZAC) 10 mg, Daily hydrOXYzine pamoate (Vistaril) 25 MG capsule TAKE 1 CAPSULE BY MOUTH UP TO THREE TIMES DAILY NEEDED FOR ANXIETY ALLERGIES Allergies Allergen Reactions Sulfa Antibiotics Unknown and Hives Other Reaction(s): hives PROBLEMS Active Ambulatory Problems Diagnosis Date Noted No Active Ambulatory Problems Resolved Ambulatory Problems Diagnosis Date Noted No Resolved Ambulatory Problems No Additional Past Medical History HISTORY PAST MEDICAL HISTORY SOCIAL HISTORY No past medical history on file. Social History Tobacco Use Smoking status: Not on file Smokeless tobacco: Not on file Substance Use Topics Alcohol use: Not on file Drug use: Not on file FAMILY HISTORY Family History Problem Relation Name Age of Onset No Known Problems Mother No Known Problems Father SURGICAL HISTORY Past Surgical History: Procedure Laterality Date ADENOIDECTOMY REVIEW OF SYSTEMS Review of Systems: Review of Systems All other systems reviewed and are negative. OBJECTIVE Objective: Physical Exam Constitutional: Appearance: Normal appearance. She is well-developed. Genitourinary: Vulva normal. Cardiovascular: Rate and Rhythm: Normal rate and [...] nursing note reviewed. Exam conducted with a wood boatbuilder present. Vitals: Estimated body mass index is 33.12 kg/m?? as calculated from the following: Height as of 08/05/23: 5' 8 . Weight as of 11/04/23: 217 lb 12.8 oz. BP: No LMP recorded. Assessment/Plan ICD-10-CM 1. Well woman exam with routine gynecological exam Z01.419 Pap Smear HPV DNA probe, amplified Annual Exam: Patient presents today for an annual exam. Patient states she is doing well and has no complaints. Pap was obtained without difficulty. Orders Placed This Encounter Procedures HPV DNA probe, amplified Follow Up: Patient is to return in one year for annual unless needed otherwise. Documented by Tesha Fisher MA on behalf of: Vanessa Pichardo NP documented in this encounter Plan of Treatment NameTypePriorityAssociated DiagnosesOrder SchedulePap SmearPathology and CytologyRoutine Well woman exam with routine gynecological exam Ordered: 12/16/2024HPV DNA probe, amplifiedMicrobiologyRoutine Well woman exam with routine gynecological exam Ordered: 12/16/2024documented as of this encounter Visit Diagnoses Diagnosis Well woman exam with routine gynecological exam Routine gynecological examination documented in this encounter Care Teams Team MemberRelationshipSpecialtyStart DateEnd Date Alexandra Lopez MD [address] [place] [phone] PCP - GeneralFamily Fkdvxnpl84/6/23documented as of this encounter
--- OUTSIDE RECORDS SUMMARY | 2024-12-16 15:06 | XMS_ITS | Encounter Summary ---
Author Organization [facility] Address [address] [place] [address] Care Team Providers Care Power Crane Operator Name Role Phone Alexandra Lopez MD Primary Care Provider [phone] Encounter Details DateTypeDepartmentCare Team (Latest Contact Info)Fxzwueqqqhr47/24/2024Clinisync Result Encounter [facility] External Department Unsolicited Cheyenne Lorenzo, DO [address] [place] [address] Social History Tobacco UseTypesPacks/DayYears UsedDateSmoking Tobacco: Never Assessed CommentsYesSex and Gender InformationValueDate RecordedSex Assigned at BirthNot on fileLegal QvtZqzzke04/29/2023 10:08 AM EDTGender IdentityNot on fileSexual OrientationNot on filedocumented as of this encounter Plan of Treatment Not on file documented as of this encounter Procedures Procedure NamePriorityDate/TimeAssociated DiagnosisCommentsUS OB BPP W NON-LWODYY4906/05/2023 7:07 AM EDT documented in this encounter Results * US OB BPP W NON-STRESS (06/05/2023 7:07 AM EDT)Anatomical Region LateralityModalityOtherSpecimen (Source)Anatomical Location / Laterality Collection Method / VolumeCollection TimeReceived Time06/05/2023 7:07 AM EDT Narrative 06/05/2023 7:09 AM EDT [facility] ?[address] ? [place] [address] ? Ultrasound Report ? Signed ? Patient: CUCO THOMAS ?MR#: [id number] ?? : 1995 ?Acct:[id number] ?? Age/Sex: 27 / F ?ADM Date: 04/23/24 ?? Loc: US ? Attending Dr: Cheyenne Lorenzo D.O. ? Ordering Physician: Cheyenne Lorenzo D.O. ?? Date of Service: 06/04/23 ?? Procedure(s): US OB BPP w non-stress ?? Accession Number(s): [id number] ? cc: Cheyenne Lorenzo D.O.; Physician,Non-Staff M.D. ? [facility] ? [address] ? [place] [address] ? Patient Name: ?? CUCO THOMAS ? MRN: [facility]:[id number] ? date: 1995 ?Sex: F ?? Assigned Patient Location: [facility] ?? Current Patient Location: ? Accession/Order Number: [id number] ?? Exam Date: 06/04/2023 ??19:43 ?Report Date: 06/05/2023 ??07:07 ? At the request of: ?? CHEYENNE ??BJ ? Procedure: ??US OB BPP w non-stress ? EXAMINATION: US OB BPP w non-stress ? HISTORY: oligohydramnios ? COMPARISON: Ultrasound OB biophysical 05/28/2023 ? TECHNIQUE: Ultrasound biophysical profile was performed in the radiology ?? department. ? BREATHING MOVEMENTS: 2.0 ?? GROSS BODY MOVEMENTS: 2.0 ?? TONE: 2.0 ?? QUALITATIVE AMNIOTIC FLUID VOLUME: 2.0 ? PRESENTATION: CEPHALIC ?? HEART RATE: 142.1 bpm bpm. ?? AMNIOTIC FLUID VOLUME: 15.3 cm ?? GESTATIONAL AGE: 36 weeks 4 days ? CONCLUSION: ? Total biophysical profile score 8.0. ? Electronically authenticated by: HANDY ??RACHEL ?? Date: 06/05/2023 ??07:07 ? Dictated By: ?Handy Rodriguez M.D. ? Signed By: ?06/05/23 07 ? DD/ 07 ? TD/TT: ? Training Specialist: Procedure Note Radiology, Radiologist, MD - 06/05/[address] [address] Ultrasound Report Signed Patient: WILLIAMCUCO RMR#: [id number] : 1995Acct:[id number] Age/Sex: 27 / FADM Date: 06/04/23 Loc: US Attending Dr: Cheyenne Lorenzo D.O. Ordering Physician: Cheyenne Lorenzo D.O. Date of Service: 06/04/23 Procedure(s): US OB BPP w non-stress Accession Number(s): [id number] cc: Cheyenne Lorenzo D.O.; Physician,Non-Staff M.[place]urn[place] [address] Patient Name: CUCO THOMAS MRN: [facility]:[id number] date: 1995 Sex: F Assigned Patient Location: [facility] Current Patient Location: Accession/Order Number: [id number] Exam Date: 06/04/2023 19:43 Report Date: 06/05/2023 07:07 At the request of: CHEYENNE LORENZO Procedure: US OB BPP w non-stress EXAMINATION: US OB BPP w non-stress HISTORY: oligohydramnios COMPARISON: Ultrasound OB biophysical 05/28/2023 TECHNIQUE: Ultrasound biophysical profile was performed in the radiology department. BREATHING MOVEMENTS: 2.0 GROSS BODY MOVEMENTS: 2.0 TONE: 2.0 QUALITATIVE AMNIOTIC FLUID VOLUME: 2.0 PRESENTATION: CEPHALIC HEART RATE: 142.1 bpm bpm. AMNIOTIC FLUID VOLUME: 15.3 cm GESTATIONAL AGE: 36 weeks 4 days CONCLUSION: Total biophysical profile score 8.0. Electronically authenticated by: HANDY RODRIGUEZ Date: 06/05/2023 07:07 Dictated By: Handy Rodriguez M.D. Signed By:06/05/2309 DD/ 6 TD/TT: Training Specialist: Authorizing ProviderResult TypeResult StatusCorey Bj DOCLINISYNC IMAGINGFinal Result documented in this encounter Visit Diagnoses Not on filedocumented in this encounter Care Teams Team MemberRelationshipSpecialtyStart DateEnd Date Alexandra Lopez MD [address] [facility] [place] [phone] PCP - GeneralFamily Jqohodjm02/6/23documented as of this encounter
--- OUTSIDE RECORDS SUMMARY | 2024-12-16 15:06 | XMS_ITS | Encounter Summary ---
Author Organization [facility] Address [address] [place] [address] Care Team Providers Care Vp Of Customer Experience Strategy Name Role Phone Alexandra Lopez MD Primary Care Provider [phone] Encounter Details DateTypeDepartmentCare Team (Latest Contact Info)Npcakunbkzr73/21/2024Clinisync Result Encounter [facility] External Department Unsolicited Cheyenne Lorenzo, DO [address] [facility] [place] [address] Social History Tobacco UseTypesPacks/DayYears UsedDateSmoking Tobacco: Never Assessed CommentsYesSex and Gender InformationValueDate RecordedSex Assigned at BirthNot on fileLegal PbvVnfrqe53/29/2023 10:08 AM EDTGender IdentityNot on fileSexual OrientationNot on filedocumented as of this encounter Plan of Treatment Not on file documented as of this encounter Procedures Procedure NamePriorityDate/TimeAssociated DiagnosisCommentsUS AMNIOTIC FLUID LUDQYW2105/02/2023 9:25 AM EDT documented in this encounter Results * US AMNIOTIC FLUID VOLUME (05/02/2023 9:25 AM EDT)Anatomical RegionLaterality ModalityRadiographic ImagingSpecimen (Source)Anatomical Location / Laterality Collection Method / VolumeCollection TimeReceived Time05/02/2023 9:25 AM EDT Narrative 05/02/2023 9:27 AM EDT [facility] ?[address] ? [place] [address] ? Ultrasound Report ? Signed ? Patient: WILLIAM,CUCO R ?MR#: [id number] ?? : 1995 ?Acct:[id number] ?? Age/Sex: 27 / F ?ADM Date: 03/21/24 ?? Loc: [facility] ? Attending Dr: Cheyenne Lorenzo D.O. ? Ordering Physician: Cheyenne Lorenzo D.O. ?? Date of Service: 05/02/23 ?? Procedure(s): US OB amniotic fluid vol ?? Accession Number(s): [id number] ? cc: Cheyenne Lorenzo D.O.; Physician,Non-Staff M.D. ? [facility] ? [address] ? [place] [address] ? Patient Name: ?? CUCO Gui THOMAS ? MRN: [facility]:[id number] ? date: 1995 ?Sex: F ?? Assigned Patient Location: [facility] ?? Current Patient Location: [facility] ?? Accession/Order Number: [id number] ?? Exam Date: 05/02/2023 ??08:43 ?Report Date: 05/02/2023 ??09:25 ? At the request of: ?? CHEYENNE ??PERI ? Procedure: ??US OB amniotic fluid vol ? EXAMINATION: US OB amniotic fluid vol ? HISTORY: LOW FLUID ? COMPARISON: Ultrasound OB growth 05/01/2023 ? TECHNIQUE: Limited sonographic examination for amniotic fluid volume ? FINDINGS: ?? Presentation: Cephalic ?? Heart rate: 150 bpm ?? Amniotic fluid: 14.7 cm; largest pocket 6.1 cm. (Normal range 8.6-24.2 cm) ? GA: 31 weeks 6 days ?? RAKEL: 06/28/2023 ? US/US OB amniotic fluid vol ?? IMPRESSION: ? 1. Single live intrauterine . ?? 2. Amniotic fluid volume has increased since yesterday, now within normal ?? limits. ? Electronically authenticated by: HANDY ??RACHEL ?? Date: 05/02/2023 ??09:25 ? Dictated By: ?Handy Rodriguez M.D. ? Signed By: ?05/02/23926 ? DD/ 4 ? TD/TT: ? Log Raft Worker: Procedure Note Radiology, Radiologist, MD - 05/02/2023 [place] [address] Ultrasound Report Signed Patient: CUCO THOMAS RMR#: [id number] : 1995Acct:[id number] Age/Sex: 27 / FADM Date: 05/02/23 Loc: [facility] Attending Dr: Cheyenne Lorenzo D.O. Ordering Physician: Cheyenne Lorenzo D.O. Date of Service: 05/02/23 Procedure(s): US OB amniotic fluid vol Accession Number(s): [id number] cc: Cheyenne Lorenzo D.O.; Physician,Non-Staff [place] [address] Patient Name: CUCO THOMAS MRN: [facility]:[id number] date: 1995 Sex: F Assigned Patient Location: [facility] Current Patient Location: [facility] Accession/Order Number: [id number] Exam Date: 05/02/2023 08:43 Report Date: 05/02/2023 09:25 At the request of: CHEYENNE LORENZO Procedure: US OB amniotic fluid vol EXAMINATION: US OB amniotic fluid vol HISTORY: LOW FLUID COMPARISON: Ultrasound OB growth 05/01/2023 TECHNIQUE: Limited sonographic examination for amniotic fluid volume FINDINGS: Presentation: Cephalic Heart rate: 150 bpm Amniotic fluid: 14.7 cm; largest pocket 6.1 cm. (Normal range 8.6-24.2 cm) GA: 31 weeks 6 days RAKEL: 06/28/2023 US/US OB amniotic fluid vol IMPRESSION: 1. Single live intrauterine . 2. Amniotic fluid volume has increased since yesterday, now within normal limits. Electronically authenticated by: HANDY RODRIGUEZ Date: 05/02/2023 09:25 Dictated By: Handy Rodriguez M.D. Signed By:05/02/23926 DD/ 4 TD/TT: Log Raft Worker: Authorizing ProviderResult TypeResult StatusCorecourtney Lorenzo DOIMG XR PROCEDURESFinal Result documented in this encounter Visit Diagnoses Not on filedocumented in this encounter Care Teams Team MemberRelationshipSpecialtyStart DateEnd Date Alexandra Lopez MD [address] [place] [address] PCP - GeneralFamily Fndyezwa84/6/23documented as of this encounter
--- OUTSIDE RECORDS SUMMARY | 2024-12-16 15:06 | XMS_ITS | Encounter Summary ---
Author Organization [facility] Address [address] [place] [address] Care Team Providers Care Coal Wheeler Name Role Phone Alexandra Lopez MD Primary Care Provider [phone] Encounter Details DateTypeDepartmentCare Team (Latest Contact Info)Hawedwqcqgw22/05/2024Clinisync Result Encounter [facility] External Department Unsolicited Cheyenne Lorenzo, DO [address] [place] [address] Social History Tobacco UseTypesPacks/DayYears UsedDateSmoking Tobacco: Never Assessed CommentsYesSex and Gender InformationValueDate RecordedSex Assigned at BirthNot on fileLegal QimRwvkvb75/29/2023 10:08 AM EDTGender IdentityNot on fileSexual OrientationNot on filedocumented as of this encounter Plan of Treatment Not on file documented as of this encounter Procedures Procedure NamePriorityDate/TimeAssociated DiagnosisCommentsUS OB INCOMPLETE YJXXKSL6103/18/2023 8:52 AM EST documented in this encounter Results * US OB INCOMPLETE ANATOMY (03/18/2023 8:52 AM EST)Anatomical RegionLaterality ModalityOtherSpecimen (Source)Anatomical Location / LateralityCollection Method / VolumeCollection TimeReceived Time03/18/2023 8:52 AM EST Narrative 03/18/2023 8:55 AM EST [facility] ?[address] ? [place] [address] ? Ultrasound Report ? Signed ? Patient: WILLIAM,CUCO R ?MR#: [id number] ?? : 1995 ?Acct:[id number] ?? Age/Sex: 27 / F ?ADM Date: 02/05/24 ?? Loc: [facility] ? Attending Dr: Cheyenne Lorenzo D.O. ? Ordering Physician: Cheyenne Lorenzo D.O. ?? Date of Service: 03/18/23 ?? Procedure(s): US OB incomplete anatomy ?? Accession Number(s): [id number] ? cc: Cheyenne Lorenzo D.O.; Physician,Non-Staff M.DPatrizia ? [facility] ? [address] ? [place] [address] ? Patient Name: ?? CUCO THOMAS ? MRN: [facility]:[id number] ? date: 1995 ?Sex: F ?? Assigned Patient Location: [facility] ?? Current Patient Location: [facility] ?? Accession/Order Number: [id number] ?? Exam Date: 03/18/2023 ??08:05 ?Report Date: 03/18/2023 ??08:52 ? At the request of: ?? CHEYENNE ??PERI ? Procedure: ??US OB incomplete anatomy ? EXAMINATION: US OB follow up, US OB incomplete anatomy ? HISTORY: ECHOGENIC FOCI ? COMPARISON: 02/14/2023 ? FINDINGS: ? position: Cephalic presentation, longitudinal lie ? Heart rate: 140 bpm ?? Amniotic fluid: Subjectively normal ? Anatomy: Previously identified echogenic cardiac focus is no longer seen ? US/US OB incomplete anatomy ?? IMPRESSION: ? Interval resolution of previously identified right ventricular echogenic focus ? Electronically authenticated by: STORM ??MILTON ?? Date: 03/18/2023 ??08:52 ? Dictated By: ?Storm Rose M.D. ? Signed By: ?03/18/23 0855 ? DD/ 08 ? TD/TT: ? Fish Bin Tender: Procedure Note Radiology, Radiologist, MD - 03/18/2023 The [place] [id number] Ultrasound Report Signed Patient: CUCO THOMAS RMR#: [id number] : 1995Acct:[id number] Age/Sex: 27 / FADM Date: 03/18/23 Loc: [facility] Attending Dr: Cheyenne Lorenzo D.O. Ordering Physician: Cheyenne Lorenzo D.O. Date of Service: 03/18/23 Procedure(s): US OB incomplete anatomy Accession Number(s): [id number] cc: Cheyenne Lorenzo D.O.; Physician,Non-Staff [place] [address] Patient Name: CUCO THOMAS MRN: [facility]:[id number] date: 1995 Sex: F Assigned Patient Location: [facility] Current [facility] Accession/Order Number: [id number] Exam Date: 03/18/2023 08:05 Report Date: 03/18/2023 08:52 At the request of: CHEYENNE LORENZO Procedure: US OB incomplete anatomy EXAMINATION: US OB follow up, US OB incomplete anatomy HISTORY: ECHOGENIC FOCI COMPARISON: 02/14/2023 FINDINGS: position: Cephalic presentation, longitudinal lie Heart rate: 140 bpm Amniotic fluid: Subjectively normal Anatomy: Previously identified echogenic cardiac focus is no longer seen US/US OB incomplete anatomy IMPRESSION: Interval resolution of previously identified right ventricular echogenicfocus Electronically authenticated by: STORM ROSE Date: 03/18/2023 08:52 Dictated By: Storm Rose M.D. Signed By:03/18/23854 DD/ 1 TD/TT: Fish Bin Tender: Authorizing ProviderResult TypeResult StatusCorecourtney Lorenzo DOCLINISYNC IMAGINGFinal Result documented in this encounter Visit Diagnoses Not on filedocumented in this encounter Care Teams Team MemberRelationshipSpecialtyStart DateEnd Date Alexandra Lopez MD [address] [place] [phone] PCP - GeneralFamily Ptbhtvdq52/6/23documented as of this encounter
--- OUTSIDE RECORDS SUMMARY | 2024-12-16 15:06 | XMS_ITS | Encounter Summary ---
Author Organization [facility] Address [address] [place] [address] Care Team Providers Care Guest Service Team Leader Name Role Phone Alexandra Lopez MD Primary Care Provider [phone] Encounter Details DateTypeDepartmentCare Team (Latest Contact Info)Aamdajheehr71/20/2024Clinisync Result Encounter [facility] External Department Unsolicited Cheyenne Lorenzo, DO [address] [place] [address] Social History Tobacco UseTypesPacks/DayYears UsedDateSmoking Tobacco: Never Assessed CommentsYesSex and Gender InformationValueDate RecordedSex Assigned at BirthNot on fileLegal HlqJjkcwc89/29/2023 10:08 AM EDTGender IdentityNot on fileSexual OrientationNot on filedocumented as of this encounter Plan of Treatment Not on file documented as of this encounter Procedures Procedure NamePriorityDate/TimeAssociated DiagnosisCommentsUS OB GROWTH 05/01/2023 2:25 PM EDT documented in this encounter Results * US OB GROWTH (05/01/2023 2:25 PM EDT)Anatomical RegionLateralityModalityOther Specimen (Source)Anatomical Location / LateralityCollection Method / Volume Collection TimeReceived Time05/01/2023 2:25 PM EDT Narrative 05/01/2023 2:27 PM EDT [facility] ?[address] ? [place] [address] ? Ultrasound Report ? Signed ? Patient: WILLIAM,CUCO R ?MR#: [id number] ?? : 1995 ?Acct:[id number] ?? Age/Sex: 27 / F ?ADM Date: 03/20/24 ?? Loc: [facility] ? Attending Dr: Cheyenne Lorenzo D.O. ? Ordering Physician: Cheyenne Lorenzo D.O. ?? Date of Service: 05/01/23 ?? Procedure(s): US OB growth ?? Accession Number(s): [id number] ? cc: Cheyenne Lorenzo D.O.; Physician,Non-Staff M.D. ? [facility] ? [address] ? [place] [address] ? Patient Name: ?? CUCO THOMAS ? MRN: [facility]:[id number] ? date: 1995 ?Sex: F ?? Assigned Patient Location: [facility] ?? Current Patient Location: [facility] ?? Accession/Order Number: [id number] ?? Exam Date: 05/01/2023 ??13:29 ?Report Date: 05/01/2023 ??14:25 ? At the request of: ?? CHEYENNE ??BJ ? Procedure: ??US OB growth ? EXAMINATION: US OB growth ? HISTORY: LGA ? COMPARISON: 03/18/2023 ? TECHNIQUE: Transabdominal sonographic examination was performed for ?? obstetrical ?? and evaluation. ? FINDINGS: ? Number: 1 ?? Heart Rate: 136.0 bpm H.B. /min ?? Amniotic Fluid Volume: 8.8 cm, 5th percentile 8.6 cm. Largest fluid pocket 4.0 ? cm ?? Placental Location: Blank ? BIOMETRY: ?? BPD: 8.2 cm 32 weeks 5 days , 72% ?? HC: 29.5 cm 32 weeks 4 days, 34% ?? AC: 28.4 cm 32 weeks 3 days, 69% ?? FL: 6.3 cm 32 weeks 4 days , 62% ?? EFW:1989.6 grams; 4 lbs. 6 oz., 65% ?? FL/AC: 22.2 ?? FL/BPD: 77.3 ?? HC/AC: 1.0 ? GESTATIONAL AGE: ?? Age by EDC: 31 weeks 5 days ?? Age by current US: 32 weeks 4 days ?? RAKEL by current US: 06/22/2023 ?? RAKEL by EDC: 06/28/2023 ? Findings communicated to Dr. Lorenzo by the technologist ? US/US OB growth ?? IMPRESSION: ? Borderline oligohydramnios ? *Reference: [facility] Practice Guideline for the performance of Obstetric ?? Ultrasound ?? Examinations, November 11, 2006. ? Electronically authenticated by: STORM ??MILTON ?? Date: 05/01/2023 ??14:25 ? Dictated By: ?Storm Rose M.D. ? Signed By: ?05/01/231426 ? DD/ 1425 ? TD/TT: ? Studio Technician Video Operator: Procedure Note Radiology, Radiologist, - 05/01/2023 [place] [address] Ultrasound Report Signed Patient: CUCO THOMAS RMR#: [id number] : 1995Acct:[id number] Age/Sex: 27 / FADM Date: 05/01/23 Loc: [facility] Attending Dr: Cheyenne Lorenzo D.O. Ordering Physician: Cheyenne Lorenzo D.O. Date of Service: 05/01/23 Procedure(s): US OB growth Accession Number(s): [id number] cc: Cheyenne Lorenzo D.O.; Physician,Non-Staff M.DPatrizia The [address] [address] Patient Name: CUCO THOMAS MRN: [facility]:[id number] date: 1995 Sex: F Assigned Patient Location: [facility] Current Patient Location: [facility] Accession/Order Number: [id number] Exam Date: 05/01/2023 13:29 Report Date: 05/01/2023 14:25 At the request of: CHEYENNE LORENZO Procedure: US OB growth EXAMINATION: US OB growth HISTORY: LGA COMPARISON: 03/18/2023 TECHNIQUE: Transabdominal sonographic examination was performed for obstetrical and evaluation. FINDINGS: Number: 1 Heart Rate: 136.0 bpm H.B. /min Amniotic Fluid Volume: 8.8 cm, 5th percentile 8.6 cm. Largest fluid pocket4.0 cm Placental Location: Blank BIOMETRY: BPD: 8.2 cm 32 weeks 5 days , 72% HC: 29.5 cm 32 weeks 4 days, 34% AC: 28.4 cm 32 weeks 3 days, 69% FL: 6.3 cm 32 weeks 4 days , 62% EFW:1989.6 grams; 4 lbs. 6 oz., 65% FL/AC: 22.2 FL/BPD: 77.3 HC/AC: 1.0 GESTATIONAL AGE: Age by EDC: 31 weeks 5 days Age by current US: 32 weeks 4 days RAKEL by current US: 06/22/2023 RAKEL by EDC: 06/28/[address] Lorenzo by the technologist US/US OB growth IMPRESSION: Borderline oligohydramnios *Reference: [facility] Practice Guideline for the performance of Obstetric Ultrasound Examinations, November 11, 2006. Electronically authenticated by: STORM ROSE Date: 05/01/2023 14:25 Dictated By: Storm Rose M.D. Signed By:05/01/23 1427 DD/ 1425 TD/TT: Studio Technician Video Operator: Authorizing ProviderResult TypeResult StatusCorey Bj DOCLINISYNC IMAGINGFinal Result documented in this encounter Visit Diagnoses Not on filedocumented in this encounter Care Teams Team MemberRelationshipSpecialtyStart DateEnd Date Alexandra Lopez MD [address] [place] [address] PCP - GeneralFamily Tbjjjret78/6/23documented as of this encounter
--- OUTSIDE RECORDS SUMMARY | 2024-12-16 15:06 | XMS_ITS | Clinical Summary ---
Author Organization [facility] Address [address] [place] [address] Care Team Providers Care College Instructor Name Role Phone Alexandra Lopez MD Primary Care Provider [phone] Allergies Active AllergyReactionsCriticalityNoted DateCommentsSulfa AntibioticsUnknown, Hives11/12/2016 Other Reaction(s): hives Medications MedicationSigDispense QuantityRefillsLast FilledStart DateEnd DateStatus hydrOXYzine pamoate (Vistaril) 25 MG capsule TAKE 1 CAPSULE BY MOUTH UP TO THREE TIMES DAILY NEEDED FOR OBQIVVA3907/13/2024 Active FLUoxetine (PROzac) 10 MG capsule Take 10 mg by mouth Daily5Active Encounters DateTypeDepartmentCare VvtwUrmrtndqqjk29/05/2025 9:00 AM ESTOffice Visit [facility] [place] [facility] [address] [place] [address] Vanessa Pichardo NP Well woman exam with routine gynecological exam5Bamboo flowsheet [facility] [place] [facility] [address] [place] [address] Vanessa Pichardo NP from Last 3 Months Family History Medical HistoryRelationNameCommentsNo Known ProblemsFatherNo Known Problems MotherRelationNameStatusCommentsFatherAliveMotherAlive Social History Tobacco UseTypesPacks/DayYears UsedDateSmoking Tobacco: Never Assessed CommentsNoSex and Gender InformationValueDate RecordedSex Assigned at BirthNot on fileLegal ZuyEnehoe68/29/2023 10:08 AM EDTGender IdentityNot on fileSexual OrientationNot on file Last Filed Vital Signs Vital SignReadingTime TakenCommentsBlood Dvyevgkd821/7611 9:17 AM EST Pulse--Temperature--Respiratory Rate--Oxygen Saturation--Inhaled Oxygen Concentration--Ptsbyp89.3 kg (208 lb)12/16/2024 9:17 AM OSMVhbzdj850.7 cm (5' 8 )12/16/2024 9:17 AM ESTBody Mass Index31.6312/16/2024 9:17 AM EST Plan of Treatment Health MaintenanceDue DateLast DoneCommentsHPV/Akxrvj004COVID-19 Vaccine ( season)503/07/2020Influenza Vaccine (#1)2024 01/12/2020, 11/16/2019Cervical Cancer Hsmgfvmss40/23/2027Pap Smear11/03/2026 11/04/2023, 3Pneumococcal Vaccine: Pediatrics (0 to 5 Years) and At- Risk Patients (6 to 64 Years)Aged OutNo longer eligible based on patient's age to complete this topic Procedures Procedure NamePriorityDate/TimeAssociated DiagnosisCommentsPAP SMEARRoutine 11/04/2023 12:00 AM EDTfrom Last 3 Months or Most Recently Relevant to Health Maintenance Results * Pap Smear (11/04/2023 12:00 AM EDT)Specimen (Source)Anatomical Location / LateralityCollection Method / VolumeCollection TimeReceived TimeSwabCervical swab / Unknown Narrative Authorizing ProviderResult TypeResult StatusFazio Nurse [facility] ObLAB CYTOLOGY ORDERABLESFinal ResultPerforming OrganizationAddressCity/State/ZIP CodePhone Number EXTERNAL LAB from Last 3 Months or Most Recently Relevant to Health Maintenance Insurance Care Teams Team MemberRelationshipSpecialtyStart DateEnd Date Alexandra Lopez MD [address] [place] [id number] PCP - GeneralFamily Davlhkol40/6/23
--- OUTSIDE RECORDS SUMMARY | 2024-12-16 15:06 | XMS_ITS | Encounter Summary ---
Author Organization [facility] Address [address] [place] [address] Care Team Providers Care Retail Area Manager Name Role Phone Alexandra Lopez MD Primary Care Provider [phone] Encounter Details DateTypeDepartmentCare Team (Latest Contact Info)Fxgdgedhkjt13/05/2024Clinisync Result Encounter [facility] External Department Unsolicited Cheyenne Lorenzo, DO [address] [facility] [place] [address] Social History Tobacco UseTypesPacks/DayYears UsedDateSmoking Tobacco: Never Assessed CommentsYesSex and Gender InformationValueDate RecordedSex Assigned at BirthNot on fileLegal AbmLqgyif74/29/2023 10:08 AM EDTGender IdentityNot on fileSexual OrientationNot on filedocumented as of this encounter Plan of Treatment Not on file documented as of this encounter Procedures Procedure NamePriorityDate/TimeAssociated DiagnosisCommentsUS OB TRANSVAGINAL 02/15/2023 7:19 AM EST documented in this encounter Results * US OB TRANSVAGINAL (02/15/2023 7:19 AM EST)Anatomical RegionLateralityModality OtherSpecimen (Source)Anatomical Location / LateralityCollection Method / VolumeCollection TimeReceived Time02/15/2023 7:19 AM EST Narrative 02/15/2023 7:22 AM EST [facility] ?[address] ? [place] [address] ? Ultrasound Report ? Signed ? Patient: WILLIAM,CUCO R ?MR#: [id number] ?? : 1995 ?Acct:[id number] ?? Age/Sex: 27 / F ?ADM Date: 01/04/24 ?? Loc: US ? Attending Dr: Cheyenne Lorenzo D.O. ? Ordering Physician: Cheyenne Lorenzo D.O. ?? Date of Service: 02/14/23 ?? Procedure(s): US OB transvaginal ?? Accession Number(s): [id number] ? cc: Cheyenne Lorenzo D.O.; Physician,Non-Staff M.D. ? [facility] ? [address] ? [place] [address] ? Patient Name: ?? CUCO THOMAS ? MRN: [facility]:[id number] ? date: 1995 ?Sex: F ?? Assigned Patient Location: US ?? Current Patient Location: ? Accession/Order Number: [id number] ?? Exam Date: 02/14/2023 ??17:05 ?Report Date: 02/15/2023 ??07:19 ? At the request of: ?? CHEYENNE ??BJ ? Procedure: ??US OB transvaginal ? EXAMINATION: US OB anatomy, US OB transvaginal ? HISTORY: SECOND TRIMESTER Z34.92 ? COMPARISON: No relevant comparison available. ? TECHNIQUE: Transabdominal sonographic examination was performed for ?? obstetrical ?? and evaluation. ? FINDINGS: ? Number: 1 ?? Heart Rate: 142.9 bpm H.B. /min ?? Amniotic Fluid Volume: Subjectively normal ?? position: Cephalic presentation, longitudinal lie ?? Placental Location: Posterior, placental edge 5.3 cm from the internal os. ?? Grade 0 ?? Cervix Length: 3.4 cm, closed ? Normal anatomy: Lateral ventricles, cerebellum, posterior fossa, nose, lips, ?? orbits, four-chamber heart, RVOT, LVOT, diaphragm, stomach, kidneys, abdominal ? cord insertion, bladder, umbilical cord arteries, three-vessel cord, ?? extremities ? Suboptimal visualization: Spine secondary to position ? Abnormality. 2 mm right ventricular echogenic focus ? BIOMETRY: ?? BPD: 5.0 cm 21 weeks 0 days , 56% ?? HC: 18.4 cm 20 weeks 5 days, 37% ?? AC: 16.5 cm 21 weeks 4 days, 65% ?? FL: 3.4 cm 20 weeks 6 days , 40% ?? EFW:402.9 grams; 14 ounces, 61% ?? FL/AC: 20.9 ?? FL/BPD: 69.3 ?? HC/AC: 1.1 ? GESTATIONAL AGE: ?? Age by EDC: 20 weeks 6 days ?? Age by current US: 21 weeks 0 days ?? RAKEL by current US: 06/27/2023 ?? RAKEL by EDC: 06/28/2023 ? US/US OB transvaginal ?? IMPRESSION: ? Suboptimal visualization of the spine ? 2 mm right ventricular echogenic focus, nonspecific ? Otherwise normal anatomy scan ? Closed cervix measuring 3.4 cm in length ? *Reference: [facility] Practice Guideline for the performance of Obstetric ?? Ultrasound ?? Examinations, November 11, 2006. ? Electronically authenticated by: STORM ??MILTON ?? Date: 02/15/2023 ??07:19 ? Dictated By: ?Storm Rose M.D. ? Signed By: ?02/15/23721 ? DD/ 8 ? TD/TT: ? Conduit Reamer Operator: Procedure Note Radiology, Radiologist, - 04/17/2023 [place] [address] Ultrasound Report Signed Patient: CUCO THOMAS RMR#: [id number] : 1995Acct:[id number] Age/Sex: 27 / FADM Date: 02/14/23 Loc: US Attending Dr: Cheyenne Lorenzo D.O. Ordering Physician: Cheyenne Lorenzo D.O. Date of Service: 02/14/23 Procedure(s): US OB transvaginal Accession Number(s): [id number] cc: Cheyenne Lorenzo D.O.; Physician,Non-Staff Venkat The [address] [address] Patient Name: CUCO THOMSA MRN: [id number] date: 1995 Sex: F Assigned Patient Location: US Current Patient Location: Accession/Order Number: [id number] Exam Date: 02/14/2023 17:05 Report Date: 02/15/2023 07:19 At the request of: CHEYENNE LORENZO Procedure: US OB transvaginal EXAMINATION: US OB anatomy, US OB transvaginal HISTORY: SECOND TRIMESTER Z34.92 COMPARISON: No relevant comparison available. TECHNIQUE: Transabdominal sonographic examination was performed for obstetrical and evaluation. FINDINGS: Number: 1 Heart Rate: 142.9 bpm H.B. /min Amniotic Fluid Volume: Subjectively normal position: Cephalic presentation, longitudinal lie Placental Location: Posterior, placental edge 5.3 cm from the internal os. Grade 0 Cervix Length: 3.4 cm, closed Normal anatomy: Lateral ventricles, cerebellum, posterior fossa, nose,lips, orbits, four-chamber heart, RVOT, LVOT, diaphragm, stomach, kidneys,abdominal cord insertion, bladder, umbilical cord arteries, three-vessel cord, extremities Suboptimal visualization: Spine secondary to position Abnormality. 2 mm right ventricular echogenic focus BIOMETRY: BPD: 5.0 cm 21 weeks 0 days , 56% HC: 18.4 cm 20 weeks 5 days, 37% AC: 16.5 cm 21 weeks 4 days, 65% FL: 3.4 cm 20 weeks 6 days , 40% EFW:402.9 grams; 14 ounces, 61% FL/AC: 20.9 FL/BPD: 69.3 HC/AC: 1.1 GESTATIONAL AGE: Age by EDC: 20 weeks 6 days Age by current US: 21 weeks 0 days RAKEL by current US: 06/27/2023 RAKEL by EDC: 06/28/2023 US/US OB transvaginal IMPRESSION: Suboptimal visualization of the spine 2 mm right ventricular echogenic focus, nonspecific Otherwise normal anatomy scan Closed cervix measuring 3.4 cm in length *Reference: [facility] Practice Guideline for the performance of Obstetric Ultrasound Examinations, November 11, 2006. Electronically authenticated by: STORM ROSE Date: 02/15/2023 07:19 Dictated By: Storm Rose M.D. Signed By:02/15/23 0722 DD/ 0719 TD/TT: Conduit Reamer Operator: Authorizing ProviderResult TypeResult StatusCorey Bj DOCLINISYNC IMAGINGFinal Result documented in this encounter Visit Diagnoses Not on filedocumented in this encounter Care Teams Team MemberRelationshipSpecialtyStart DateEnd Date Alexandra Lopez MD [address] [place] [address] PCP - GeneralFamily Mgjissta72/6/23documented as of this encounter
--- OUTSIDE RECORDS SUMMARY | 2024-12-16 15:06 | XMS_ITS | Encounter Summary ---
Author Organization [facility] Address [address] [place] [address] Care Team Providers Care Search Analyst Name Role Phone Alexandra Lopez MD Primary Care Provider [phone] Encounter Details DateTypeDepartmentCare Team (Latest Contact Info)Kfqpdykpren17/05/2024Clinisync Result Encounter [facility] External Department Unsolicited Cheyenne Lorenzo, DO [address] [facility] [place] [address] Social History Tobacco UseTypesPacks/DayYears UsedDateSmoking Tobacco: Never Assessed CommentsYesSex and Gender InformationValueDate RecordedSex Assigned at BirthNot on fileLegal SssXeafhu18/29/2023 10:08 AM EDTGender IdentityNot on fileSexual OrientationNot on filedocumented as of this encounter Plan of Treatment Not on file documented as of this encounter Procedures Procedure NamePriorityDate/TimeAssociated DiagnosisCommentsUS OB FOLLOW UP 03/18/2023 8:52 AM EST documented in this encounter Results * US OB FOLLOW UP (03/18/2023 8:52 AM EST)Anatomical RegionLateralityModality Radiographic ImagingSpecimen (Source)Anatomical Location / Laterality Collection Method / VolumeCollection TimeReceived Time03/18/2023 8:52 AM EST Narrative 03/18/2023 8:55 AM EST [facility] ?[address] ? [place] [address] ? Ultrasound Report ? Signed ? Patient: WILLIAM,CUCO R ?MR#: [id number] ?? : 1995 ?Acct:[id number] ?? Age/Sex: 27 / F ?ADM Date: 02/05/24 ?? Loc: [facility] ? Attending Dr: Cheyenne Lorenzo D.O. ? Ordering Physician: Cheyenne Lorenzo D.O. ?? Date of Service: 03/18/23 ?? Procedure(s): US OB follow up ?? Accession Number(s): [id number] ? cc: Cheyenne Lorenzo D.O.; Physician,Non-Staff M.D. ? [facility] ? [address] ? [place] [address] ? Patient Name: ?? CUCO THOMAS ? MRN: [facility]:[id number] ? date: 1995 ?Sex: F ?? Assigned Patient Location: [facility] ?? Current Patient Location: [facility] ?? Accession/Order Number: [id number] ?? Exam Date: 03/18/2023 ??08:05 ?Report Date: 03/18/2023 ??08:52 ? At the request of: ?? CHEYENNE ??BJ ? Procedure: ??US OB follow up ? EXAMINATION: US OB follow up, US OB incomplete anatomy ? HISTORY: ECHOGENIC FOCI ? COMPARISON: 02/14/2023 ? FINDINGS: ? position: Cephalic presentation, longitudinal lie ? Heart rate: 140 bpm ?? Amniotic fluid: Subjectively normal ? Anatomy: Previously identified echogenic cardiac focus is no longer seen ? US/US OB follow up ?? IMPRESSION: ? Interval resolution of previously identified right ventricular echogenic focus ? Electronically authenticated by: STORM ??MILTON ?? Date: 03/18/2023 ??08:52 ? Dictated By: ?West,Storm V M.D. ? Signed By: ?03/18/23 08 ? DD/ 1 ? TD/TT: ? Liability Claims Adjuster: Procedure Note Radiology, Radiologist, MD - 03/18/2023 [place] [address] Ultrasound Report Signed Patient: CUCO THOMAS RMR#: [id number] : 1995Acct:[id number] Age/Sex: 27 / FADM Date: 03/18/23 Loc: [facility] Attending Dr: Cheyenne Lorenzo D.O. Ordering Physician: Cheyenne Lorenzo D.O. Date of Service: 03/18/23 Procedure(s): US OB follow up Accession Number(s): [id number] cc: Cheyenne Lorenzo D.O.; Physician,Non-Staff Venkat [address] [address] Patient Name: CUCO THOMAS MRN: [id number] date: 1995 Sex: F Assigned Patient Location: [facility] Current Patient Location: [facility] Accession/Order Number: [id number] Exam Date: 03/18/2023 08:05 Report Date: 03/18/2023 08:52 At the request of: CHEYENNE LORENZO Procedure: US OB follow up EXAMINATION: US OB follow up, US OB incomplete anatomy HISTORY: ECHOGENIC FOCI COMPARISON: 02/14/2023 FINDINGS: position: Cephalic presentation, longitudinal lie Heart rate: 140 bpm Amniotic fluid: Subjectively normal Anatomy: Previously identified echogenic cardiac focus is no longer seen US/US OB follow up IMPRESSION: Interval resolution of previously identified right ventricular echogenicfocus Electronically authenticated by: STORM ROSE Date: 03/18/2023 08:52 Dictated By: Storm Rose M.D. Signed By:03/18/23854 DD/ 1 TD/TT: Liability Claims Adjuster: Authorizing ProviderResult TypeResult StatusCorey Bj DOIMG XR PROCEDURESFinal Result documented in this encounter Visit Diagnoses Not on filedocumented in this encounter Care Teams Team MemberRelationshipSpecialtyStart DateEnd Date Alexandra Lopez MD [address] [place] [id number] PCP - GeneralFamily Tinwdpmj32/6/23documented as of this encounter
--- OUTSIDE RECORDS SUMMARY | 2024-12-16 15:06 | XMS_ITS | Encounter Summary ---
Author Organization [facility] Address [address] [place] [address] Care Team Providers Care Eyeletter Name Role Phone Alexandra Lopez MD Primary Care Provider [phone] Encounter Details DateTypeDepartmentCare Team (Latest Contact Info)Leygmhajccj37/07/2023Clinisync Result Encounter [facility] External Department Unsolicited Cheyenne Lorenzo, DO [address] [place] [address] Social History Tobacco UseTypesPacks/DayYears UsedDateSmoking Tobacco: Never Assessed CommentsYesSex and Gender InformationValueDate RecordedSex Assigned at BirthNot on fileLegal CcwRkknct03/29/2023 10:08 AM EDTGender IdentityNot on fileSexual OrientationNot on fileCOVID-19 ExposureResponseDate RecordedIn the last 10 days, have you been in contact with someone who was confirmed or suspected to have Co ronavirus/COVID-19?No / Gktmlc4701/10/2023 2:33 PM ESTdocumented as of this encounter Plan of Treatment Not on file documented as of this encounter Procedures Procedure NamePriorityDate/TimeAssociated DiagnosisCommentsUS OB TRANSVAGINAL 11/17/2022 10:05 PM EDT documented in this encounter Results * US OB TRANSVAGINAL (11/17/2022 10:05 PM EDT)Anatomical RegionLaterality ModalityOtherSpecimen (Source)Anatomical Location / LateralityCollection Method / VolumeCollection TimeReceived Time11/17/2022 10:05 PM EDT Narrative 11/17/2022 10:05 PM EDT [facility] ?[address] ? [place] [address] ? Ultrasound Report ? Signed ? Patient: Cuco Thomas ?MR#: [id number] ?? : 1995 ?Acct:[id number] ?? Age/Sex: 27 / F ?ADM Date: 11/16/22 ?? Loc: US ? Attending Dr: Cheyenne Lorenzo D.O. ? Ordering Physician: Cheyenne Lorenzo D.O. ?? Date of Service: 11/16/22 ?? Procedure(s): US OB transvaginal ?? Accession Number(s): [id number] ? cc: Cheyenne Lorenzo D.O.; Physician,Non-Staff Venkat ? [facility] ? [address] [place] [address] ? [place] [address] ? Patient Name: ?? CUCO THOMAS ? MRN: [facility]:[id number] ? date: 1995 ?Sex: F ?? Assigned Patient Location: US ?? Current Patient Location: ? Accession/Order Number: [id number] ?? Exam Date: 11/16/2022 ??10:08 ?Report Date: 11/17/2022 ??22:05 ? At the request of: ?? CHEYENNE ??BJ ? Procedure: ??US OB transvaginal ? EXAMINATION: US OB transvaginal ? HISTORY: MISSED MENSES ? COMPARISON: No relevant comparison available. ? FINDINGS: ? GESTATIONAL SAC: Present and normal appearing. ?? YOLK SAC: Present and normal appearing. ?? POLE: Present and normal appearing. ?? CARDIAC: Present. ? UTERUS: Normal size and appearance. ?? OVARIES: Right: Normal. Left: Contains a 2.7 cm hypoechoic area, likely corpus ? luteal cyst. ?? CERVIX: 4.1 cm in length and closed. ?? CUL-DE-SAC: Normal. ?? OTHER: None. ? AGE BY LMP: 8 weeks 5 days ?? RAKEL BY LMP: 06/23/2023 ?? AGE BY US CRL: 8 weeks 0 days ?? RAKEL BY US CRL: 06/28/2023 ? US/US OB transvaginal ?? IMPRESSION: ? 1. Single live intrauterine . ? Electronically authenticated by: HANDY ??RACHEL ?? Date: 11/17/2022 ??22:05 ? Dictated By: ?Handy Rodriguez M.D. ? Signed By: ?11/17/227 ? DD/ 2205 ? TD/TT: ? Bag Presser: Procedure Note Radiology, Radiologist, MD - 11/17/2022 [place] [address] Ultrasound Report Signed Patient: Cuco Thomas RMR#: [id number] : 1995Acct:[id number] Age/Sex: 27 / FADM Date: 11/16/22 Loc: US Attending Dr: Cheyenne Lorenzo D.O. Ordering Physician: Cheyenne Lorenzo D.O. Date of Service: 11/16/22 Procedure(s): US OB transvaginal Accession Number(s): [id number] cc: Cheyenne Lorenzo D.O.; Physician,Non-Staff Venkat The [place] [address] Patient Name: CUCO THOMAS MRN: [facility]:[id number] date: 1995 Sex: F Assigned Patient Location: US Current Patient Location: Accession/Order Number: [id number] Exam Date: 11/16/2022 10:08 Report Date: 11/17/2022 22:05 At the request of: CHEYENNE LORENZO Procedure: US OB transvaginal EXAMINATION: US OB transvaginal HISTORY: MISSED MENSES COMPARISON: No relevant comparison available. FINDINGS: GESTATIONAL SAC: Present and normal appearing. YOLK SAC: Present and normal appearing. POLE: Present and normal appearing. CARDIAC: Present. UTERUS: Normal size and appearance. OVARIES: Right: Normal. Left: Contains a 2.7 cm hypoechoic area, likelycorpus luteal cyst. CERVIX: 4.1 cm in length and closed. CUL-DE-SAC: Normal. OTHER: None. AGE BY LMP: 8 weeks 5 days RAKEL BY LMP: 06/23/2023 AGE BY US CRL: 8 weeks 0 days RAKEL BY US CRL: 06/28/2023 US/US OB transvaginal IMPRESSION: 1. Single live intrauterine . Electronically authenticated by: HANDY RODRIGUEZ Date: 11/17/2022 22:05 Dictated By: Handy Rodriguez M.D. Signed By:11/17/222206 DD/ 04 TD/TT: Bag Presser: Authorizing ProviderResult TypeResult StatusCorey Bj DOCLINISYNC IMAGINGFinal Result documented in this encounter Visit Diagnoses Not on filedocumented in this encounter Care Teams Team MemberRelationshipSpecialtyStart DateEnd Date Alexandra Lopez MD [address] [facility] [place] [address] PCP - GeneralFamily Nkeidfgc40/6/23documented as of this encounter
--- OUTSIDE RECORDS SUMMARY | 2024-12-16 15:06 | XMS_ITS | Encounter Summary ---
Author Organization [facility] Address [address] [place] [address] Care Team Providers Care Credentialing Coordinator Name Role Phone Alexandra Lopez MD Primary Care Provider [phone] Encounter Details DateTypeDepartmentCare Team (Latest Contact Info)Axajezqsiao52/05/2025Bamboo flowsheet [facility] [address] [place] [address] Vanessa Pichardo, SHANTELLE [address] [place] [address] Social History Tobacco UseTypesPacks/DayYears UsedDateSmoking Tobacco: Never Assessed CommentsNoSex and Gender InformationValueDate RecordedSex Assigned at BirthNot on fileLegal TssTeqjxf33/29/2023 10:08 AM EDTGender IdentityNot on fileSexual OrientationNot on filedocumented as of this encounter Plan of Treatment Not on file documented as of this encounter Visit Diagnoses Not on filedocumented in this encounter Care Teams Team MemberRelationshipSpecialtyStart DateEnd Date Alexandra Lopez MD [address] [place] [address] PCP - GeneralFamily Skmfdyae44/6/23documented as of this encounter
--- OUTSIDE RECORDS SUMMARY | 2024-12-16 15:06 | XMS_ITS | Encounter Summary ---
Author Organization [facility] Address [address] [place] [address] Care Team Providers Care Gettering Operator Name Role Phone Alexandra Lopez MD Primary Care Provider [phone] Encounter Details DateTypeDepartmentCare Team (Latest Contact Info)Sjjlicycmpo42/10/2024Clinisync Result Encounter [facility] External Department Unsolicited Cheyenne Lorenzo, DO [address] [facility] [address] [place] [address] Social History Tobacco UseTypesPacks/DayYears UsedDateSmoking Tobacco: Never Assessed CommentsYesSex and Gender InformationValueDate RecordedSex Assigned at BirthNot on fileLegal HhcLasklo69/29/2023 10:08 AM EDTGender IdentityNot on fileSexual OrientationNot on filedocumented as of this encounter Plan of Treatment Not on file documented as of this encounter Procedures Procedure NamePriorityDate/TimeAssociated DiagnosisCommentsUS OB BPP W NON-LUAVXW0905/22/2023 7:26 AM EDT documented in this encounter Results * US OB BPP W NON-STRESS (05/22/2023 7:26 AM EDT)Anatomical Region LateralityModalityOtherSpecimen (Source)Anatomical Location / Laterality Collection Method / VolumeCollection TimeReceived Time05/22/2023 7:26 AM EDT Narrative 05/22/2023 7:29 AM EDT [facility] ?[address] ? [place] [address] ? Ultrasound Report ? Signed ? Patient: CUCO THOMAS ?MR#: [id number] ?? : 1995 ?Acct:[id number] ?? Age/Sex: 27 / F ?ADM Date: 04//24 ?? Loc: US ? Attending Dr: Cheyenne Lorenzo D.O. ? Ordering Physician: Cheyenne Lorenzo D.O. ?? Date of Service: 05/21/23 ?? Procedure(s): US OB BPP w non-stress ?? Accession Number(s): [id number] ? cc: Cheyenne Lorenzo D.O.; Physician,Non-Staff M.D. ? [facility] ? [address] ? [place] [address] ? Patient Name: ?? CUCO THOMAS ? MRN: [facility]:[id number] ? date: 1995 ?Sex: F ?? Assigned Patient Location: [facility]BC ?? Current Patient Location: ? Accession/Order Number: [id number] ?? Exam Date: 05/21/2023 ??19:04 ?Report Date: 05/22/2023 ??07:26 ? At the request of: ?? CHEYENNE ??PERI ? Procedure: ??US OB BPP w non-stress ? EXAMINATION: US OB BPP w non-stress ? HISTORY: EXCESSIVE GROWTH AFFECTING PREGNANACY O36.63X0 ? COMPARISON: No relevant comparison available. ? TECHNIQUE: Ultrasound biophysical profile was performed in the radiology ?? department. ? FINDINGS: ?? BREATHING MOVEMENTS: 2.0 ?? GROSS BODY MOVEMENTS: 2.0 ?? TONE: 2.0 ?? QUALITATIVE AMNIOTIC FLUID VOLUME: 2.0 ? PRESENTATION: CEPHALIC ?? HEART RATE: 142.1 bpm H.B./min ?? AMNIOTIC FLUID VOLUME: 20.3 cm cm ?? GESTATIONAL AGE: 34 weeks 4 days ? CONCLUSION: ? Total biophysical profile score: 8.0 ? Electronically authenticated by: STORM ??WEST ?? Date: 05/22/2023 ??07:26 ? Dictated By: ?Storm Rose M.D. ? Signed By: ?05/22/23728 ? DD/ 5 ? TD/TT: ? Radio Television Technical Director: Procedure Note Radiology, Radiologist, MD - 05/22/[address] [address] Ultrasound Report Signed Patient: CUCO THOMAS RMR#: [id number] : 1995Acct:[id number] Age/Sex: 27 / FADM Date: 05/21/23 Loc: US Attending Dr: Cheyenne Lorenzo D.O. Ordering Physician: Cheyenne Lorenzo D.O. Date of Service: 05/21/23 Procedure(s): US OB BPP w non-stress Accession Number(s): [id number] cc: Cheyenne Lorenzo D.O.; Physician,Non-Staff Venkat [place] [address] Patient Name: CUCO THOMAS MRN: [facility]:[id number] date: 1995 Sex: F Assigned Patient Location: [facility] Current Patient Location: Accession/Order Number: [id number] Exam Date: 05/21/2023 19:04 Report Date: 05/22/2023 07:26 At the request of: CHEYENNE LORENZO Procedure: US OB BPP w non-stress EXAMINATION: US OB BPP w non-stress HISTORY: EXCESSIVE GROWTH AFFECTING PREGNANACY O36.63X0 COMPARISON: No relevant comparison available. TECHNIQUE: Ultrasound biophysical profile was performed in the radiology department. FINDINGS: BREATHING MOVEMENTS: 2.0 GROSS BODY MOVEMENTS: 2.0 TONE: 2.0 QUALITATIVE AMNIOTIC FLUID VOLUME: 2.0 PRESENTATION: CEPHALIC HEART RATE: 142.1 bpm H.B./min AMNIOTIC FLUID VOLUME: 20.3 cm cm GESTATIONAL AGE: 34 weeks 4 days CONCLUSION: Total biophysical profile score: 8.0 Electronically authenticated by: STORM ROSE Date: 05/22/2023 07:26 Dictated By: Storm Rose M.D. Signed By:05/22/23728 DD/ 5 TD/TT: Radio Television Technical Director: Authorizing ProviderResult TypeResult StatusCorecourtney Lorenzo DOCLINISYNC IMAGINGFinal Result documented in this encounter Visit Diagnoses Not on filedocumented in this encounter Care Teams Team MemberRelationshipSpecialtyStart DateEnd Date Alexandra Lopez MD [address] [place], [place] [address] [address] PCP - GeneralFamily Tvqlctum32/6/23documented as of this encounter
--- OUTSIDE RECORDS SUMMARY | 2024-12-16 15:06 | XMS_ITS | Encounter Summary ---
Author Organization [facility] Address [address] [place] [address] Care Team Providers Care Job Specification Writer Name Role Phone Alexandra Lopez MD Primary Care Provider [phone] Encounter Details DateTypeDepartmentCare Team (Latest Contact Info)Mwwazixsidu18/27/2024Clinisync Result Encounter [facility] External Department Unsolicited Cheyenne Lorenzo, DO [address] [facility] [place] [address] Social History Tobacco UseTypesPacks/DayYears UsedDateSmoking Tobacco: Never Assessed CommentsYesSex and Gender InformationValueDate RecordedSex Assigned at BirthNot on fileLegal MooLdampg50/29/2023 10:08 AM EDTGender IdentityNot on fileSexual OrientationNot on filedocumented as of this encounter Plan of Treatment Not on file documented as of this encounter Procedures Procedure NamePriorityDate/TimeAssociated DiagnosisCommentsUS OB BPP W NON-QAFKSK7805/08/2023 7:15 AM EDT documented in this encounter Results * US OB BPP W NON-STRESS (05/08/2023 7:15 AM EDT)Anatomical Region LateralityModalityOtherSpecimen (Source)Anatomical Location / Laterality Collection Method / VolumeCollection TimeReceived Time05/08/2023 7:15 AM EDT Narrative 05/08/2023 7:18 AM EDT [facility] [place] [facility] ?[address] ? [place] [address] ? Ultrasound Report ? Signed ? Patient: CUCO THOMAS ?MR#: [id number] ?? : 1995 ?Acct:[id number] ?? Age/Sex: 27 / F ?ADM Date: 03/26/24 ?? Loc: US ? Attending Dr: Cheyenne Lorenzo D.O. ? Ordering Physician: Cheyenne Lorenzo D.O. ?? Date of Service: 05/07/23 ?? Procedure(s): US OB BPP w non-stress ?? Accession Number(s): [id number] ? cc: Cheyenne Lorenzo D.O.; Physician,Non-Staff M.D. ? [facility] [place] [facility] ? [address] ? [place] [address] ? Patient Name: ?? CUCO THOMAS ? MRN: [facility]:[id number] ? date: 1995 ?Sex: F ?? Assigned Patient Location: FBC ?? Current Patient Location: ? Accession/Order Number: [id number] ?? Exam Date: 05/07/2023 ??19:16 ?Report Date: 05/08/2023 ??07:15 ? At the request of: ?? CHEYENNE ??BJ ? Procedure: ??US OB BPP w non-stress ? EXAMINATION: US OB BPP w non-stress ? HISTORY: EXCESSIVE GROWTH AFFECTING O36.63X0 ? COMPARISON: Ultrasound OB growth 05/01/2023, ultrasound OB amniotic fluid ?? volume ?? 05/02/2023 ? TECHNIQUE: Ultrasound biophysical profile was performed in the radiology ?? department. ? BREATHING MOVEMENTS: 2.0 ?? GROSS BODY MOVEMENTS: 2.0 ?? TONE: 2.0 ?? QUALITATIVE AMNIOTIC FLUID VOLUME: 2.0 ? PRESENTATION: BREECH ?? HEART RATE: 125.6 bpm bpm. ?? AMNIOTIC FLUID VOLUME: 12.2 cm ?? GESTATIONAL AGE: 32 weeks 4 days ? CONCLUSION: ? Total biophysical profile score 8.0. ? Electronically authenticated by: HANDY ??RACHEL ?? Date: 05/08/2023 ??07:15 ? Dictated By: ?Handy Rodriguez M.D. ? Signed By: ?05/08/23 0718 ? DD/ 07 ? TD/TT: ? It Architect: Procedure Note Radiology, Radiologist, MD - 05/08/2023 [place] [id number] Ultrasound Report Signed Patient: CUCO THOMAS RMR#: [id number] : 1995Acct:[id number] Age/Sex: 27 / FADM Date: 05/07/23 Loc: US Attending Dr: Cheyenne Lorenzo D.O. Ordering Physician: Cheyenne Lorenzo D.O. Date of Service: 05/07/23 Procedure(s): US OB BPP w non-stress Accession Number(s): [id number] cc: Cheyenne Lorenzo D.O.; Physician,Non-Staff Venkat [place] [id number] Patient Name: CUCO THOMAS MRN: [id number] date: 1995 Sex: F Assigned Patient Location: [facility] Current Patient Location: Accession/Order Number: [id number] Exam Date: 05/07/2023 19:16 Report Date: 05/08/2023 07:15 At the request of: CHEYENNE LORENZO Procedure: US OB BPP w non-stress EXAMINATION: US OB BPP w non-stress HISTORY: EXCESSIVE GROWTH AFFECTING O36.63X0 COMPARISON: Ultrasound OB growth 05/01/2023, ultrasound OB amniotic fluid volume 05/02/2023 TECHNIQUE: Ultrasound biophysical profile was performed in the radiology department. BREATHING MOVEMENTS: 2.0 GROSS BODY MOVEMENTS: 2.0 TONE: 2.0 QUALITATIVE AMNIOTIC FLUID VOLUME: 2.0 PRESENTATION: BREECH HEART RATE: 125.6 bpm bpm. AMNIOTIC FLUID VOLUME: 12.2 cm GESTATIONAL AGE: 32 weeks 4 days CONCLUSION: Total biophysical profile score 8.0. Electronically authenticated by: HANDY RODRIGUEZ Date: 05/08/2023 07:15 Dictated By: Handy Rodriguez M.D. Signed By:05/08/23717 DD/ 4 TD/TT: It Architect: Authorizing ProviderResult TypeResult StatusCorey Bj DOCLINISYNC IMAGINGFinal Result documented in this encounter Visit Diagnoses Not on filedocumented in this encounter Care Teams Team MemberRelationshipSpecialtyStart DateEnd Date Alexandra Lopez MD [address] [place] [address] PCP - GeneralFamily Cyghciis96/6/23documented as of this encounter
--- OUTSIDE RECORDS SUMMARY | 2024-12-16 15:06 | XMS_ITS | Encounter Summary ---
Author Organization [facility] Address [address] [place] [address] Care Team Providers Care Hide Spreader Name Role Phone Alexandra Lopez MD Primary Care Provider [phone] Encounter Details DateTypeDepartmentCare Team (Latest Contact Info)Aojalpzktsp25/05/2024Clinisync Result Encounter [facility] External Department Unsolicited Cheyenne Lorenzo, DO [address] [facility] [place] [address] Social History Tobacco UseTypesPacks/DayYears UsedDateSmoking Tobacco: Never Assessed CommentsYesSex and Gender InformationValueDate RecordedSex Assigned at BirthNot on fileLegal TolOtwfww40/29/2023 10:08 AM EDTGender IdentityNot on fileSexual OrientationNot on filedocumented as of this encounter Plan of Treatment Not on file documented as of this encounter Procedures Procedure NamePriorityDate/TimeAssociated DiagnosisCommentsUS OB ANATOMY 02/15/2023 7:19 AM EST documented in this encounter Results * US OB ANATOMY (02/15/2023 7:19 AM EST)Anatomical RegionLateralityModalityOther Specimen (Source)Anatomical Location / LateralityCollection Method / Volume Collection TimeReceived Time02/15/2023 7:19 AM EST Narrative 02/15/2023 7:22 AM EST [facility] ?[address] ? [place] [address] ? Ultrasound Report ? Signed ? Patient: WILLIAM,CUCO R ?MR#: [id number] ?? : 1995 ?Acct:[id number] ?? Age/Sex: 27 / F ?ADM Date: 01/04/24 ?? Loc: US ? Attending Dr: Cheyenne Lorenzo D.O. ? Ordering Physician: Cheyenne Lorenzo D.O. ?? Date of Service: 02/14/23 ?? Procedure(s): US OB anatomy ?? Accession Number(s): [id number] ? cc: Cheyenne Lorenzo D.O.; Physician,Non-Staff M.D. ? [facility] ? [address] ? [place] [address] ? Patient Name: ?? CUCO THOMAS ? MRN: [facility]:[id number] ? date: 1995 ?Sex: F ?? Assigned Patient Location: US ?? Current Patient Location: ? Accession/Order Number: [id number] ?? Exam Date: 02/14/2023 ??17:05 ?Report Date: 02/15/2023 ??07:19 ? At the request of: ?? CHEYENNE ??PERI ? Procedure: ??US OB anatomy ? EXAMINATION: US OB anatomy, US OB [...] RAKEL by EDC: 06/28/2023 ? US/US OB anatomy ?? IMPRESSION: ? Suboptimal visualization of the spine ? 2 mm right ventricular echogenic focus, nonspecific ? Otherwise normal anatomy scan ? Closed cervix measuring 3.4 cm in length ? *Reference: [employer] Practice Guideline for the performance of Obstetric ?? Ultrasound ?? Examinations, November 11, 2006. ? Electronically authenticated by: STORM ??MILTON ?? Date: 02/15/2023 ??07:19 ? Dictated By: ?Storm Rose M.D. ? Signed By: ?02/15/23721 ? DD/ ? TD/TT: ? Trolley Coach Driver: Procedure Note Radiology, Radiologist, - 02/15/2023 [place] [address] Ultrasound Report Signed Patient: CUCO THOMAS RMR#: [id number] : 1995Acct:[id number] Age/Sex: 27 / FADM Date: 02/14/23 Loc: US Attending Dr: Cheyenne Lorenzo D.O. Ordering Physician: Cheyenne Lorenzo D.O. Date of Service: 02/14/23 Procedure(s): US OB anatomy Accession Number(s): [id number] cc: Cheyenne Lorenzo D.O.; Physician,Non-Staff M.Purnima The [address] [address] Patient Name: CUCO THOMAS MRN: [id number] date: 1995 Sex: F Assigned Patient Location: US Current Patient Location: Accession/Order Number: [id number] Exam Date: 02/14/2023 17:05 Report Date: 02/15/2023 07:19 At the request of: CHEYENNE LORENZO Procedure: US OB anatomy EXAMINATION: US OB anatomy, US OB transvaginal [...] 06/27/2023 RAKEL by EDC: 06/28/2023 US/US OB anatomy IMPRESSION: Suboptimal visualization of the spine 2 mm right ventricular echogenic focus, nonspecific Otherwise normal anatomy scan Closed cervix measuring 3.4 cm in length *Reference: [employer] Practice Guideline for the performance of Obstetric Ultrasound Examinations, November 11, 2006. Electronically authenticated by: STORM ROSE Date: 02/15/2023 07:19 Dictated By: Storm Rose M.D. Signed By:02/15/23 0722 DD/ 0719 TD/TT: Trolley Coach Driver: Authorizing ProviderResult TypeResult StatusCorecourtney Lorenzo DOCLINISYNC IMAGINGFinal Result documented in this encounter Visit Diagnoses Not on filedocumented in this encounter Care Teams Team MemberRadhahipSpecialtyStart DateEnd Date Alexandra Lopez MD [address] [facility] [place] [address] PCP - GeneralFamily Wikowvkl99/6/23documented as of this encounter
--- OUTSIDE RECORDS SUMMARY | 2024-12-16 15:06 | XMS_ITS | Encounter Summary ---
Author Organization [facility] Address [address] [place] [address] Care Team Providers Care Grinding Mill Operator Name Role Phone Alexandra Lopez MD Primary Care Provider Encounter Details DateTypeDepartmentCare Team (Latest Contact Info)Zwmxhdamhjf55/01/2024Clinisync Result Encounter [facility] External Department Unsolicited Cheyenne Lorenzo, DO [address] [place] [address] Social History Tobacco UseTypesPacks/DayYears UsedDateSmoking Tobacco: Never Assessed CommentsYesSex and Gender InformationValueDate RecordedSex Assigned at BirthNot on fileLegal BpdSmbden15/29/2023 10:08 AM EDTGender IdentityNot on fileSexual OrientationNot on filedocumented as of this encounter Plan of Treatment Not on file documented as of this encounter Procedures Procedure NamePriorityDate/TimeAssociated DiagnosisCommentsUS OB GROWTH 06/12/2023 11:31 AM EDT documented in this encounter Results * US OB GROWTH (06/12/2023 11:31 AM EDT)Anatomical RegionLateralityModalityOther Specimen (Source)Anatomical Location / LateralityCollection Method / Volume Collection TimeReceived Time06/12/2023 11:31 AM EDT Narrative 06/12/2023 11:34 AM EDT [facility] ?[address] ? [place] [address] ? Ultrasound Report ? Signed ? Patient: WILLIAM,CUOC R ?MR#: [id number] ?? : 1995 ?Acct:[id number] ?? Age/Sex: 27 / F ?ADM Date: 05/01/24 ?? [facility] ? Attending Dr: Cheyenne Lorenzo D.O. ? Ordering Physician: Cheyenne Lorenzo D.O. ?? Date of Service: 06/12/23 ?? Procedure(s): US OB growth ?? Accession Number(s): [id number] ? cc: Cheyenne Lorenzo D.O.; Physician,Non-Staff M.D. ? [facility] ? [address] ? [place] [address] ? Patient Name: ?? CUCO THOMAS ? MRN: [facility]:[id number] ? date: 1995 ?Sex: F ?? Assigned Patient Location: [facility] ?? Current Patient Location: [facility] ?? Accession/Order Number: [id number] ?? Exam Date: 06/12/2023 ??11:04 ?Report Date: 06/12/2023 ??11:31 ? At the request of: ?? CHEYENNE ??BJ ? Procedure: ??US OB growth ? EXAMINATION: US OB growth ? HISTORY: LGA ? COMPARISON: 05/01/2023 ? FINDINGS: ? Heart Rate: 132.0 bpm ?? Amniotic Fluid Volume: 12.7 cm ?? Number: 1.0 ?? Position: Cephalic presentation, longitudinal lie ?? Maximum Vertical Pocket: ?? 4.4 cm cm ?? 2.5 cm cm ?? 3.0 cm cm ?? 2.9 cm cm ? BIOMETRY: ?? BPD: 9.2 cm cm; 37 weeks 3 days; 62% ?? HC: 32.8 cmcm; 37 weeks 2 days , 19% ?? AC: 36.4 cm cm; 40 weeks 2 days, greater than 97% ?? FL: 7.7 cm cm; 39 weeks 2 days; 85.1 % % ?? EFW: 3745.6 grams, 8 lbs. 4 oz., 92% ?? FL/AC: 21.1 ?? FL/BPD: 83.4 ?? HC/AC: 0.9 ? GESTATIONAL AGE: ?? Age by EDC: 37 weeks 5 days ?? RAKEL by EDC: 06/28/2023 ?? Age by US: 38 weeks 4 days ?? RAKEL by US: 06/22/2023 ? US/US OB growth ?? IMPRESSION: ? Abdominal circumference greater than the 97th percentile ? Estimated weight at the 92nd percentile ? Electronically authenticated by: STORM ??MILTON ?? Date: 06/12/2023 ??11:31 ? Dictated By: ?Storm Rose M.D. ? Signed By: ?06/12/234 ? DD/ 1131 ? TD/TT: ? Systems Lead: Procedure Note Radiology, Radiologist, - 06/12/2023 [place] [address] Ultrasound Report Signed Patient: CUCO THOMAS RMR#: [id number] : 1995Acct:[id number] Age/Sex: 27 / FADM Date: 06/12/23 Loc: [facility] Attending Dr: Cheyenne Lorenzo D.O. Ordering Physician: Cheyenne Lorenzo D.O. Date of Service: 06/12/23 Procedure(s): US OB growth Accession Number(s): [id number] cc: Cheyenne Lorenzo D.O.; Physician,Non-Staff Venkat [place] [id number] Patient Name: CUCO THOMAS MRN: [facility]:[id number] date: 1995 Sex: F Assigned Patient Location: [facility] Current Patient Location: [facility] Accession/Order Number: [id number] Exam Date: 06/12/2023 11:04 Report Date: 06/12/2023 11:31 At the request of: CHEYENNE LORENZO Procedure: US OB growth EXAMINATION: US OB growth HISTORY: LGA COMPARISON: 05/01/2023 FINDINGS: Heart Rate: 132.0 bpm Amniotic Fluid Volume: 12.7 cm Number: 1.0 Position: Cephalic presentation, longitudinal lie Maximum Vertical Pocket: 4.4 cm cm 2.5 cm cm 3.0 cm cm 2.9 cm cm BIOMETRY: BPD: 9.2 cm cm; 37 weeks 3 days; 62% HC: 32.8 cmcm; 37 weeks 2 days , 19% AC: 36.4 cm cm; 40 weeks 2 days, greater than 97% FL: 7.7 cm cm; 39 weeks 2 days; 85.1 % % EFW: 3745.6 grams, 8 lbs. 4 oz., 92% FL/AC: 21.1 FL/BPD: 83.4 HC/AC: 0.9 GESTATIONAL AGE: Age by EDC: 37 weeks 5 days RAKEL by EDC: 06/28/2023 Age by US: 38 weeks 4 days RAKEL by US: 06/22/2023 US/US OB growth IMPRESSION: Abdominal circumference greater than the 97th percentile Estimated weight at the 92nd percentile Electronically authenticated by: STORM ROSE Date: 06/12/2023 11:31 Dictated By: Storm Rose M.D. Signed By:06/12/23 1134 DD/ 1131 TD/TT: Systems Lead: Authorizing ProviderResult TypeResult StatusCorey Bj DOCLINISYNC IMAGINGFinal Result documented in this encounter Visit Diagnoses Not on filedocumented in this encounter Care Teams Team MemberRelationshipSpecialtyStart DateEnd Date Alexandra Lopez MD [address] [facility] [place] [phone] PCP - GeneralFamily Beqxlpus65/6/23documented as of this encounter
--- OUTSIDE RECORDS SUMMARY | 2024-12-16 15:06 | XMS_ITS | Encounter Summary ---
Author Organization [facility] Address [address] [place] [address] Care Team Providers Care Wedding Day Coordinator Name Role Phone Alexandra Lopez MD Primary Care Provider [phone] Encounter Details DateTypeDepartmentCare Team (Latest Contact Info)Yblsqfotqmq13/17/2024Clinisync Result Encounter [facility] External Department Unsolicited Cheyenne Lorenzo, DO [address] [facility] [facility] [address] [place] [address] Social History Tobacco UseTypesPacks/DayYears UsedDateSmoking Tobacco: Never Assessed CommentsYesSex and Gender InformationValueDate RecordedSex Assigned at BirthNot on fileLegal CszUeffjk92/29/2023 10:08 AM EDTGender IdentityNot on fileSexual OrientationNot on filedocumented as of this encounter Plan of Treatment Not on file documented as of this encounter Procedures Procedure NamePriorityDate/TimeAssociated DiagnosisCommentsUS OB BPP W NON-HJCNKB5705/29/2023 7:17 AM EDT documented in this encounter Results * US OB BPP W NON-STRESS (05/29/2023 7:17 AM EDT)Anatomical Region LateralityModalityOtherSpecimen (Source)Anatomical Location / Laterality Collection Method / VolumeCollection TimeReceived Time05/29/2023 7:17 AM EDT Narrative 05/29/2023 7:19 AM EDT [facility] ?[address] ? [place] [address] ? Ultrasound Report ? Signed ? Patient: CUCO THOMAS ?MR#: [id number] ?? : 1995 ?Acct:[id number] ?? Age/Sex: 27 / F ?ADM Date: 04/16/24 ?? Loc: US ? Attending Dr: Cheyenne Lorenzo D.O. ? Ordering Physician: Cheyenne Lorenzo D.O. ?? Date of Service: 05/28/23 ?? Procedure(s): US OB BPP w non-stress ?? Accession Number(s): [id number] ? cc: Cheyenne Lorenzo D.O.; Physician,Non-Staff M.D. ? [facility] ? [address] ? [place] [address] ? Patient Name: ?? CUCO THOMAS ? MRN: [facility]:[id number] ? date: 1995 ?Sex: F ?? Assigned Patient Location: [facility] ?? Current Patient Location: ? Accession/Order Number: [id number] ?? Exam Date: 05/28/2023 ??19:04 ?Report Date: 05/29/2023 ??07:17 ? At the request of: ?? CHYEENNE ??BJ ? Procedure: ??US OB BPP w non-stress ? EXAMINATION: US OB BPP w non-stress ? HISTORY: OLIGOHYDRAMINOS IN THIRD TRIMESTER O41.03X0 ? COMPARISON: No relevant comparison available. ? TECHNIQUE: Ultrasound biophysical profile was performed in the radiology ?? department. ? FINDINGS: ?? BREATHING MOVEMENTS: 2 ?? GROSS BODY MOVEMENTS: 2 ?? TONE: 2 ?? QUALITATIVE AMNIOTIC FLUID VOLUME: 2 ? PRESENTATION: Cephalic ?? HEART RATE: 144 H.B./min ?? AMNIOTIC FLUID VOLUME: 14.8 cm ?? GESTATIONAL AGE: 35 weeks 4 ? CONCLUSION: ? Total biophysical profile score: 8/8 ? Electronically authenticated by: STORM ??MILTON ?? Date: 05/29/2023 ??07:17 ? Dictated By: ?Storm Rose M.D. ? Signed By: ?05/29/23 07 ? DD/ 6 ? TD/TT: ? Examiner Of Currency: Procedure Note Radiology, Radiologist, MD - 05/29/[address] [address] Ultrasound Report Signed Patient: CUCO THOMAS RMR#: [id number] : 1995Acct:[id number] Age/Sex: 27 / FADM Date: 05/28/23 Loc: US Attending Dr: Cheyenne Lorenzo D.O. Ordering Physician: Cheyenne Lorenzo D.O. Date of Service: 05/28/23 Procedure(s): US OB BPP w non-stress Accession Number(s): [id number] cc: Cheyenne Lorenzo D.O.; Physician,Non-Staff M.DPatrizia [place] [address] Patient Name: CUCO THOMAS MRN: [id number] date: 1995 Sex: F Assigned Patient Location: [facility] Current Patient Location: Accession/Order Number: [id number] Exam Date: 05/28/2023 19:04 Report Date: 05/29/2023 07:17 At the request of: CHEYENNE LORENZO Procedure: US OB BPP w non-stress EXAMINATION: US OB BPP w non-stress HISTORY: OLIGOHYDRAMINOS IN THIRD TRIMESTER O41.03X0 COMPARISON: No relevant comparison available. TECHNIQUE: Ultrasound biophysical profile was performed in the radiology department. FINDINGS: BREATHING MOVEMENTS: 2 GROSS BODY MOVEMENTS: 2 TONE: 2 QUALITATIVE AMNIOTIC FLUID VOLUME: 2 PRESENTATION: Cephalic HEART RATE: 144 H.B./min AMNIOTIC FLUID VOLUME: 14.8 cm GESTATIONAL AGE: 35 weeks 4 CONCLUSION: Total biophysical profile score: 8/8 Electronically authenticated by: STORM ROSE Date: 05/29/2023 07:17 Dictated By: Storm Rose M.D. Signed By:05/29/23718 DD/ 6 TD/TT: Examiner Of Currency: Authorizing ProviderResult TypeResult StatusCorey Bj DOCLINISYNC IMAGINGFinal Result documented in this encounter Visit Diagnoses Not on filedocumented in this encounter Care Teams Team MemberRelationshipSpecialtyStart DateEnd Date Alexandra Lopez MD [address] [place] [phone] PCP - GeneralFamily Idspdwqo81/6/23documented as of this encounter
--- OUTSIDE RECORDS SUMMARY | 2024-12-16 15:07 | XMS_ITS | Encounter Summary ---
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 Name Role Phone Alexandra Lopez MD Primary Care Provider [phone] Encounter Details DateTypeDepartmentCare Team (Latest Contact Info)Bifmqhjptfj66/04/2024Clinisync Result Encounter [facility] External Department Unsolicited Cheyenne Lorenzo, DO [address] [facility] [place] [address] Social History Tobacco UseTypesPacks/DayYears UsedDateSmoking Tobacco: Never Assessed CommentsYesSex and Gender InformationValueDate RecordedSex Assigned at BirthNot on fileLegal BvgAdekgt29/29/2023 10:08 AM EDTGender IdentityNot on fileSexual OrientationNot on filedocumented as of this encounter Plan of Treatment Not on file documented as of this encounter Procedures Procedure NamePriorityDate/TimeAssociated DiagnosisCommentsUS OB BPP W NON-JCUMHQ1305/16/2023 7:19 AM EDT documented in this encounter Results * US OB BPP W NON-STRESS (05/16/2023 7:19 AM EDT)Anatomical Region LateralityModalityOtherSpecimen (Source)Anatomical Location / Laterality Collection Method / VolumeCollection TimeReceived Time05/16/2023 7:19 AM EDT Narrative 05/16/2023 7:21 AM EDT [facility] ?[address] ? [place] [address] ? Ultrasound Report ? Signed ? Patient: CUCO THOMAS ?MR#: [id number] ?? : 1995 ?Acct:[id number] ?? Age/Sex: 27 / F ?ADM Date: 04/03/24 ?? Loc: [facility] ? Attending Dr: Cheyenne Lorenzo D.O. ? Ordering Physician: Cheyenne Lorenzo D.O. ?? Date of Service: 05/15/23 ?? Procedure(s): US OB BPP w non-stress ?? Accession Number(s): [id number] ? cc: Cheyenne Lorenzo D.O.; Physician,Non-Staff M.D. ? [facility] ? [address] ? [place] [address] ? Patient Name: ?? CUCO THOMAS ? MRN: [facility]:[id number] ? date: 1995 ?Sex: F ?? Assigned Patient Location: [facility] ?? Current Patient Location: ? Accession/Order Number: [id number] ?? Exam Date: 05/15/2023 ??19:00 ?Report Date: 05/16/2023 ??07:19 ? At the request of: ?? CHEYENNE ??BJ ? Procedure: ??US OB BPP w non-stress ? EXAMINATION: US OB BPP w non-stress ? HISTORY: EXCESSIVE GROWTH AFFECTING O36.63X0 ? COMPARISON: Ultrasound OB biophysical 05/07/2023 ? TECHNIQUE: Ultrasound biophysical profile was performed in the radiology ?? department. ? BREATHING MOVEMENTS: 2.0 ?? GROSS BODY MOVEMENTS: 2.0 ?? TONE: 2.0 ?? QUALITATIVE AMNIOTIC FLUID VOLUME: 2.0 ? PRESENTATION: CEPHALIC ?? HEART RATE: 162.7 bpm bpm. ?? AMNIOTIC FLUID VOLUME: 18.6 cm ?? GESTATIONAL AGE: 33 weeks 5 days ? CONCLUSION: ? Total biophysical profile score 8.0. ? Electronically authenticated by: HANDY ??RACHEL ?? Date: 05/16/2023 ??07:19 ? Dictated By: ?Handy Rodriguez M.D. ? Signed By: ?05/16/23720 ? DD/ 8 ? TD/TT: ? Project Coordinator Rn: Procedure Note Radiology, Radiologist, MD - 05/16/2023 [place] [address] Ultrasound Report Signed Patient: CUCO THOMAS RMR#: [id number] : 1995Acct:[id number] Age/Sex: 27 / FADM Date: 05/15/23 Loc: [facility] Attending Dr: Cheyenne Lorenzo D.O. Ordering Physician: Cheyenne Lorenzo D.O. Date of Service: 05/15/23 Procedure(s): US OB BPP w non-stress Accession Number(s): [id number] cc: Cheyenne Lorenzo D.O.; Physician,Non-Staff Venkat [place] [address] Patient Name: CUCO THOMAS MRN: [id number]:[id number] date: 1995 Sex: F Assigned Patient Location: [facility] Current Patient Location: Accession/Order Number: [id number] Exam Date: 05/15/2023 19:00 Report Date: 05/16/2023 07:19 At the request of: CHEYENNE LORENZO Procedure: US OB BPP w non-stress EXAMINATION: US OB BPP w non-stress HISTORY: EXCESSIVE GROWTH AFFECTING O36.63X0 COMPARISON: Ultrasound OB biophysical 05/07/2023 TECHNIQUE: Ultrasound biophysical profile was performed in the radiology department. BREATHING MOVEMENTS: 2.0 GROSS BODY MOVEMENTS: 2.0 TONE: 2.0 QUALITATIVE AMNIOTIC FLUID VOLUME: 2.0 PRESENTATION: CEPHALIC HEART RATE: 162.7 bpm bpm. AMNIOTIC FLUID VOLUME: 18.6 cm GESTATIONAL AGE: 33 weeks 5 days CONCLUSION: Total biophysical profile score 8.0. Electronically authenticated by: HANDY RODRIGUEZ Date: 05/16/2023 07:19 Dictated By: Handy Rodriguez M.D. Signed By:05/16/23720 DD/ 8 TD/TT: Project Coordinator Rn: Authorizing ProviderResult TypeResult StatusCorey Bj DOCLINISYNC IMAGINGFinal Result documented in this encounter Visit Diagnoses Not on filedocumented in this encounter Care Teams Team MemberRelationshipSpecialtyStart DateEnd Date Alexandra Lopez MD [address] [place], [place] [address] [address] PCP - GeneralFamily Zjfjmveo13/6/23documented as of this encounter
--- OUTSIDE RECORDS SUMMARY | 2024-12-16 15:09 | XMS_ITS | CCD ---
Author Organization [facility] Care Team Providers Care Drafter Castings Name Role Phone FANNY GROSS (SENIOR ORACLE APPLICATIONS DEVELOPER) Unavailable Unavailab le MOSNEAG FANNY (SENIOR ORACLE APPLICATIONS DEVELOPER) Unavailable Unavailab le IMCA Unavailable Unavailable MOSELIAS GREGORIOALIN E Unavailable Unavailable Sherri CHEUNG Primary Care Physician [phone] SANGEETHA .PRETTY Admitting Unavailable SANGEETHA .PRETTY Attending Unavailable [facility] [place] MCLEAN Primary Care Unavailable PRETTY MCGRAW Consulting Unavailable Alexandra Lopez MD Primary Care Provider SANGEETHA, PRETTY Attending Unavailable BJ, SHAY Attending Unavailable SANGEETHA, PRETTY Attending Unavailable BJ, SHAY Attending Unavailable BJ, SHAY Attending Unavailable BJ, SHAY Attending Unavailable SANGEETHA, PRETTY Attending Unavailable BJ, SHAY Attending Unavailable BJ, SHAY Attending Unavailable BJ, SHAY Attending Unavailable BJ, SHAY Attending Unavailable BJ, SHAY Attending Unavailable BJ, SHAY Attending Unavailable Alexandra Lopez Primary Care Physician Juan Manuel Stone Attending Unavailable SHAN Parker Attending UnavailJuan Manuel Jennings Attending Unavailable Alexandra Lopez MD Primary Care Provider Alexandra Lopez MD Primary Care Provider [phone] Allergies Allergy ClassificationReported Allergen(s)Allergy TypeDate of OnsetReaction(s) Facility (2 sources)Sulfonamides (Antibiotic); Translations: [SULFA (SULFONAMIDE ANTIBIOTICS)]Propensity to adverse reactions to drug (disorder)89-64-1282CRK [facility] Other [place] Repository (9 sources)Sulfonamides (Antibiotic); Translations: [sulfa drugs]Drug allergy [facility] (1 source)Sulfonamides (Antibiotic)Drug allergy (disorder)[facility] Repository (20 sources)Sulfonamides (Antibiotic)Drug Nnxnrpa37-74-7711Ococdxk, [facility] Medications Current Medications MedicationDrug Class(es)DatesSig (Normalized)Sig (Original)brompheniramine maleate 0.4 mg/ml / dextromethorphan hydrobromide 2 mg/ml / pseudoephedrine hydrochloride 6 mg/ml oral solution (1 source)alpha-Adrenergic Agonist, Uncompetitive Q-yixwjc-G-aspartate Receptor Antagonist, Sigma-1 AgonistStart: 03-18-2024 End: 81-02-8038xiwp 10 mL by mouth four times daily for cough and congestion Bromfed DM oral syrup 10 mL, Oral, QID for cough and congestion for 10 day(s), 240 mL, Refill(s) 0,[facility] #[id number], 173, cm, 03/18/24 13:39:00 EST, Height/Length Dosing, 97.8, kg, 03/18/24 13:39:00 EST, Weight Dosing Start Date: 03/18/24 Stop Date: 03/28/24 Status: Orderedclotrimazole 10 mg/ml topical cream (6 sources)Azole AntifungalStart: 44-20-1272wkwpujwxjswz Top 1% Crm 1 lenin, Topical, BID, 24 gram, Refill(s) 0, [facility] #[id number], 175, cm, 12/26/21 13:50:00 EST, Height/Length Dosing, 91.7, kg, 12/26/21 13:50:00 EST, Weight Dosing Start Date: 12/26/21 Status: OrderedFLUoxetine 10 mg oral capsule (2 sources)Serotonin Reuptake InhibitorStart: 87-77-1005goir 1 capsule by mouth once dailyFLUoxetine (PROzac) 10 MG capsule Take 10 mg by mouth Daily 12/02/2024 ActivehydrOXYzine pamoate 25 mg oral capsule (2 sources)AntihistamineStart: 71-57-1038jhar 1 capsule by mouth three times daily as needed for anxietyhydrOXYzine pamoate (Vistaril) 25 MG capsule TAKE 1 CAPSULE BY MOUTH UP TO THREE TIMES DAILY NEEDED FOR ANXIETY 07/13/2024 Active ondansetron 4 mg disintegrating oral tablet (1 source)Serotonin-3 Receptor AntagonistStart: 82-84-8741bmasjrlvplg ODT (Zofran-ODT) 4 MG disintegrating tabletPrenatal Multivitamins with Vitamin B Complex, Vitamin C, Minerals and L-Methylfolate oral capsule (8 sources)Start: 58-76-3110Lxzgajgc Multivitamins with Vitamin B Complex, Vitamin C, Minerals and L-Methylfolate oral capsule 1 cap(s), Oral, Daily, 30 cap(s), Refill(s) 0 Start Date: 05/27/20 Status: Ordered Quantity: 30.0 Unit: cap(s) Repeat number: 1Start: 97-29-9789Raothmfa Multivitamins with Vitamin B Complex, Vitamin C, Minerals and L-Methylfolate oral capsule 1 cap(s), Oral, Daily, 30 cap(s), Refill(s) 0 Start Date: 05/27/20 Status: Ordered Problems Active Problems Problem ClassificationProblemDateDocumented DateEpisodic/Chronic Administrative/social admission (8 sources)Administrative reason for uqydwsmcj84-81-3368WvnjsgazXewwzbmum hypertension (1 source)Essential hypertension; Translations: [Essential (primary) hypertension]Onset: 94-68-2539NnvltdvNcngtekyb disorders (8 sources)Primary -42-6794DprlolbPbcbaoeskich breast conditions (18 sources)Pain of breast; Translations: [Mastodynia]Onset: 98-02-7966Sasskkzy Nonspecific chest pain (1 source)Chest pain; Translations: [Chest pain, unspecified]Onset: 07-13-2024 EpisodicOther nutritional; endocrine; and metabolic disorders (10 sources)Overweight in adulthood with body mass index of 25 or more but less than 30; Translations: [Body mass index (BMI) 29.0-29.9, adult]Onset: 12-26-2021 EpisodicOther nutritional; endocrine; and metabolic disorders (8 sources)Body mass index 25-29 - fcqqzpzxbo70-02-7669PydagmrzGpmzw and delivery including normal (9 sources); Translations: [Second trimester ]05-27-2020 EpisodicOther screening for suspected conditions (not mental disorders or infectious disease) (4 sources)Encounter for screening for malignant neoplasm of cervix; Translations: [ENC SCREENING MALIG NEOPLASM CERV]Onset: 06-81-2115Pvgmkxvk Screening and history of mental health and substance abuse codes (2 sources)H/O: Disorder; Translations: [Personal history of nicotine dependence]Onset: 79-83-1173PrszujjeSimerndav-related disorders (8 sources)Ictciv03-51-3615IzpkxnnWciihzn on above:Added secondary to documentation in Social History.Unclassified (1 source)Unknown / UNK(Unknown)Onset: 80-06-4492Glquepqzlklm (20 sources)Patient encounter ezykdc12-88-5914 Past or Other Problems Problem ClassificationProblemDateDocumented DateEpisodic/ChronicOther upper respiratory infections (2 sources)Acute pharyngitis, unspecified; Translations: [Acute pharyngitis, unspecified]Onset: 72-95-8662Aauexvzn Results Test NameValueInterpretationReference RangeFacilityB hCG Qualon 84-45-2427Uthf hCG QlNegativeNormalParkwood HospitalComment on above:Performed By: #### [id number] #### [facility] [address], [place] [address]ZLWvd 54-95-6208Kssga gap [Moles/Vol]11 mmol/LNormal6-16Parkwood HospitalComment on above:Performed By: #### [id number] #### [facility] [address], [place] [address]UDK/Creat Ratio22 No NzydxWtye29-07BhxovtParkwood Hospital Comment on above:Performed By: #### [id number] #### [facility] [address], [place] [address]Izwzelb [Mass/Vol]9.6 mg/dLNormal8.9-11.1FNationwide Children's HospitalComment on above:Performed By: #### [id number] #### [facility] [address], [place] [address]Snerybau [Moles/Vol]106 mmol/GFherdz834-371QvrqesParkwood HospitalComment on above:Performed By: #### [id number] #### [facility] [address], [place] [address]TG8 [Moles/Vol]29 mmol/ISsvucr69-69KxdkefParkwood Hospital Comment on above:Performed By: #### [id number] #### [facility] [address], [place] [address]Jfdeveahic [Mass/Vol]0.6 mg/dLNormal0.5-1.3FNationwide Children's HospitalComment on above:Performed By: #### [id number] #### [facility] [address], [place] [address]Vavcqsa [Mass/Vol]128 mg/jUNlvopj77-845IjzkbhParkwood HospitalComment on above:Performed By: #### [id number] #### [facility] [address], [place] [address]Ukxnrpbqm [Moles/Vol]3.5 mmol/LNormal3.5-5.3FNationwide Children's HospitalComment on above:Performed By: #### [id number] #### [facility] [address], [place] [address]Gmohha [Moles/Vol]142 mmol/AYjtxmk579-766OnpmsgParkwood HospitalComment on above:Performed By: #### [id number] #### [facility] [address], [place] [address]Yrte nitrogen [Mass/Vol]13 mg/dLNormal5-21Parkwood HospitalComment on above:Performed By: #### [id number] #### [facility] [address], [place] [address]LMK w/ Auto Diffon 22-40-4036Ynvztsdw Absolute0.0 E9/LNormal 0.0-0.2FNationwide Children's HospitalComment on above:Performed By: #### [id number] #### [facility] [address], [place] [address]Xiiertrup/100 WBC (Bld)0.6 %Normal0.0-2.0Parkwood HospitalComment on above:Performed By: #### [id number] #### [facility] [address] [place] [address]Yui Absolute0.0 E9/LNormal0.0-0.5FNationwide Children's Hospital Comment on above:Performed By: #### [id number] #### [facility] [address] [place] [address]Mqdckowlwjb/100 WBC (Bld)0.5 %Normal0.0-8.0Parkwood HospitalComment on above:Performed By: #### [id number] #### [facility] [address] [place] [address]Ochwnzlynvw distribution width (RBC) [Ratio]13.7 %Normal 10.9-14.2FNationwide Children's HospitalComment on above:Performed By: #### [id number] #### [facility] [address] [place] [address]Nwabbflfud (Bld) [Volume fraction]40.3 %Ymloxz62.0-46.0Parkwood HospitalComment on above:Performed By: #### [id number] #### [facility] [address] [place] [address]Xbvzxnprti (Bld) [Mass/Vol]13.8 g/dXLmhayq18.0-16.0Parkwood HospitalComment on above:Performed By: #### [id number] #### [facility] [address] [place] [address]Vjkwy Absolute2.0 E9/LNormal1.0-4.0[facility] Comment on above:Performed By: #### [id number] #### [facility] [address] [place] [address]Wcuhknkhnoj/100 WBC (Bld)34.4 %Apsgou86.0-50.0Parkwood HospitalComment on above:Performed By: #### [id number] #### [facility] [address], [place] [address]WJM (RBC) [Entitic mass]29.7 mxNirraz03.0-34.0Parkwood HospitalComment on above:Performed By: #### [id number] #### [facility] [address] [place] [address]GENM (RBC) [Mass/Vol]34.2 g/wVDsjffh83.4-36.0Parkwood HospitalComment on above:Performed By: #### [id number] #### [facility] [address] [place] [address]ITW (RBC) [Entitic vol]86.8 uMLvtaqv83.0-100.0Parkwood HospitalComment on above:Performed By: #### [id number] #### [facility] [address] [place] [address]Nrxl Absolute0.3 E9/LNormal0.2-1.0[facility] Comment on above:Performed By: #### [id number] #### [facility] [address] [place] [address]Tcihzroyl/100 WBC (Bld)5.8 %Normal4.0-14.0Parkwood HospitalComment on above:Performed By: #### [id number] #### [facility] [address] [place] [address]Ygjutm Absolute3.4 E9/LNormal2.0-7.5FNationwide Children's Hospital Comment on above:Performed By: #### [id number] #### [facility] [address], [place] [address]Lfpolv Auto58.7 %Ofuell56.0-75.0[facility] Comment on above:Performed By: #### [id number] #### [facility] [address] [place] [address]Yatmseov778.0 E9/OIuzqbh340.0-500.0[facility] Comment on above:Performed By: #### [id number] #### [facility] [address], [place] [address]Ohkzegcs mean volume (Bld) [Entitic vol]7.6 fLNormal6.4-10.8 Parkwood HospitalComment on above:Performed By: #### [id number] #### [facility] [address] [place] [address]MBY7.6 E12/LNormal4.3-5.9Parkwood HospitalComment on above:Performed By: #### [id number] #### [facility] [address] [place] [address]VED2.8 E9/LNormal4.0-11.0Parkwood HospitalComment on above:Performed By: #### [id number] #### [facility] [address] [place] [address]FRVTCTFKEPqncgtg By: SYSTEM SYSTEM on 15-64-6846Fdmvzjlc HS pg/mLLow10.10 - 27.10 pg/mLRemisol ChemComment on above:Interpretive Data: The 95% CI (Confidence Interval) PPV (Positive Predictive Value) for myocardial i nfarction in females is 38 pg/mL, in males 51 pg/mL. The results should be used in conjunction withclinical conditions of myocardial infarction. (Access High Sensitivity Troponin I Instructions For Use, Jairo Rafael, September 2017)Albumin [Mass/Vol]4.6 g/dLNormal3.3 - 5.0 gm/dLRemisol Chem Albumin/Globulin [Mass ratio]1.8 {ratio}Normal1.1 - 2.2Remisol ChemALP [Catalytic activity/Vol]56 [iU]/rXlasew74 - 98 Int._Unit/LRemisol ChemALT No additional P-5'-P [Catalytic activity/Vol]11 [iU]/dNormal6 - 46 Int._Unit/L Remisol ChemAnion gap [Moles/Vol]11 mmol/LNormal6 - 16 mEq/LRemisol ChemAST [Catalytic activity/Vol]13 [iU]/dNormal5 - 43 Int._Unit/LRemisol ChemBilirubin [Mass/Vol]0.3 mg/dLNormal0.0 - 1.1 mg/dLRemisol ChemBilirubin.direct [Mass/Vol] 0.0 mg/dLNormal0.0 - 0.4 mg/dLRemisol ChemBilirubin.indirect [Mass or moles/Vol] 0.3 mg/dLNormal0.1 - 0.9 mg/dLRemisol ChemCalcium [Mass/Vol]9.6 mg/dLNormal8.9 - 11.1 mg/dLRemisol ChemChloride [Moles/Vol]106 mmol/NOwpukj472 - 111 mmol/L Remisol ChemCO2 [Moles/Vol]29 mmol/GNclqob40 - 31 mmol/LRemisol ChemCreatinine [Mass/Vol]0.6 mg/dLNormal0.5 - 1.3 mg/dLRemisol ChemGFR/1.73 sq M.predicted MDRD (S/P/Bld) [Vol rate/Area]123 mL/min/1.73 n7Itrnfl>=59mL/min/1.73 y5Xtbgoyy Chem Globulin (S) [Mass/Vol]2.6 g/dLNormal1.4 - 4.0 gm/dLRemisol ChemGlucose [Mass/Vol]128 mg/tWTazqzl83 - 199 mg/dLRemisol ChemLipase [Catalytic activity/Vol]19 U/JKojqlb32 - 58 unit/LRemisol ChemPotassium [Moles/Vol]3.5 mmol/LNormal3.5 - 5.3 mmol/LRemisol ChemProtein [Mass/Vol]7.2 g/dLNormal6.0 - 7.8 gm/dLRemisol ChemSodium [Moles/Vol]142 mmol/XJhjbuu203 - 145 mmol/LRemisol ChemTroponin HSpg/mLLow10.10 - 27.10 pg/mLRemisol ChemComment on above: Interpretive Data: The 95% CI (Confidence Interval) PPV (Positive Predictive Value) for myocardial infarction in females is 38 pg/mL, in males 51 pg/mL. The results should be used in conjunction withclinical conditions of myocardial infarction. (Access High Sensitivity Troponin I Instructions For Use, Jairo [place], September 2017)Urea nitrogen [Mass/Vol]13 mg/dLNormal5 - 21 mg/dLRemisol ChemUrea nitrogen/Creatinine [Mass ratio]22 mg/owKdel05 - 20Remisol ChemCOAGULATION Ordered By: Kim Dyer on 39-85-1398rGLF Coag (PPP) [Time]42.3 sHigh25.1 - 36.5 second(s)[facility] Auto CoagComment on above:Interpretive Data: Parameter 15 days - 4 weeks 1 - 5 months 6 - 11 months 1 - 5 years 6 - 10 years 11 - 17 years PTT Mean: 35.4 (27.6-45.6) Mean: 33.5 (24.8-40.7) Mean: 32.4 (25.1-40.7) Mean: 31.6 (24.0-39.2) Mean: 31.6 (26.9-38.7) Mean: 31.0 (24.6-38.4) Pediatric Reference ranges were obtained from a study by Puma Grayson et al. prepared from 1437 samples obtained at 7 different centers using the same coagulation reagent and instrumentation as [facility]. Currently there are no coagulation studies available worldwide for children to 14 days, andno normal ranges. Heparin therapeutic range (represented by Anti-Factor Xa activity of 0.2 - 0.4 U/mL) corresponds to PTT of 56.6 - 109.0 sec.INR Coag (PPP) [Relative time]1.03 {INR}Invalid Interpretation CodeOKLAHOMA STATE UNIVERSITY [facility] [place] Auto CoagComment on above:Interpretive Data: INR results are specifically intended to assess patients stabilized on long-term Anticoagulation therapy suggested INR s Less Intensive Anticoagulation 2.0 3.0 Conventional Range 3.0 4.5PT Coag (PPP) [Time]11.5 sNormal9.4 - 12.5 second(s) [facility] Auto CoagComment on above:Interpretive Data: 15 days - 4 weeks 1 - 5 months 6 -11 months 1-5 years 6-10 years 11 -17 years Mean: 11.2 (9.5-12.6) Mean: 11.0 (9.7-12.8) Mean: 11.0 (9.8-13.0) Mean: 11.3 (9.9-13.4) Mean: 11.7 (10.0-14.6) Mean: 11.8 (10.0 - 14.1) Pediatric Reference ranges were obtained from a study by Puma Grayson et al. prepared from 1437 samples obtained at 7 different centers using the same coagulation reagent and instrumentation as [facility]. Currently there are no coagulation studies available worldwide for children to 14 days, andno normal ranges.ED Clinical Summaryon [id number] Clinical SummaryED Clinical Summary [address] [address] ED Clinical Summary Person Information Name: RAKESH CARDENAS [facility]le/[facility] Age: 28 Years : 1995 Sex: Female Language: Kinyarwanda PCP: Alexandra Lopez DO Marital Status: Single Phone: [phone] Visit Id: Visit Reason: Shoulder pain-swelling; Anxiety; Chest pressure - Adult; sore in left shoulder, tightchest Speciality: Acuity: 3 Enc Type: Emergency Med Service: Emergency Arrival: 07/13/2024 10:57:06 Discharge: 07/13/2024 14:09:46 LOS: 000 03:12 Checkin: 07/13/2024 10:57:06 Checkout: 07/13/2024 14:09:46 Dispo Type: Home (Routine DC) EVENTS: Event Name Event Status Request Date/Time Start Date/Time Complete Date/Time Arrive Complete 07/13/2024 10:57:06 07/13/2024 10:57:06 07/13/2024 10:57:06 Document Home Meds Request 07/13/2024 10:57:06 Triage Complete 07/13/2024 10:57:06 07/13/2024 11:03:26 07/13/2024 11:03:26 Bed Assign Complete 07/13/2024 11:00:21 07/13/2024 11:00:21 07/13/2024 11:00:21 Dr Exam Complete 07/13/2024 11:00:21 07/13/2024 11:06:18 07/13/2024 11:06:18 RN Exam Complete 07/13/2024 11:00:21 07/13/2024 11:30:20 07/13/2024 11:30:20 Registration Complete 07/13/2024 11:00:28 07/13/2024 11:00:28 07/13/2024 11:00:28 Reg Complete Request 07/13/2024 11:00:28 Reg Bed Request Complete 07/13/2024 11:00:28 07/13/2024 11:00:28 07/13/2024 11:00:28 EKG Complete 07/13/2024 11:04:12 07/13/2024 11:10:46 Registration Request 07/13/2024 11:06:18 Pending Labs Complete 07/13/2024 11:28:46 07/13/2024 13:10:02 Lab Complete 07/13/2024 11:28:46 07/13/2024 12:14:27 Patient Care Request 07/13/2024 11:28:46 RT Request 07/13/2024 11:28:46 X-Ray Complete 07/13/2024 11:28:46 07/13/2024 11:43:00 07/13/2024 11:56:47 Pending Labs Complete 07/13/2024 11:45:57 07/13/2024 11:45:57 07/13/2024 12:14:27 Lab Complete 07/13/2024 11:45:57 07/13/2024 11:45:57 07/13/2024 12:14:27 Meds Admin Complete 07/13/2024 11:50:01 07/13/2024 11:59:24 Wet Read Request 07/13/2024 11:56:47 Discharge Complete 07/13/2024 14:04:05 07/13/2024 14:09:50 07/13/2024 14:09:50 Transfer Complete 07/13/2024 14:09:50 07/13/2024 14:09:50 07/13/2024 14:09:50 ADDRESS: [address] [place] [phone] PHYS DOC NOTES: MEDICAL INFORMATION: Prescriptions Given: Medications to Continue with No Changes Other Medications multivitamin, ( Multivitamins with Vitamin B Complex, Vitamin C, Minerals and L-Methylfolate oral capsule) 1 Capsules By Mouth every day. PATIENT EDUCATION INFORMATION: Instructions: Follow up: With: Address: When: [address] [place] [address] [employer] ([employer] In 1 day 07/14/2024 DIAGNOSIS: Chest pain; High blood pressureNormalFisher Grant Medical CenterED Note-Physicianon [id number] Note-PhysicianED Note-Physician Basic Information Time Seen: Juan Manuel Stone DO 07/13/2024 11:06 Chief Complaint pt reports yesterday she began to have a migraine, has a hx of this. states then yesterday had chest tightness and n/v. pt arrives teaful/anxious. pt states she has chest tightness and l shoulder pain. recently given anxiety medicine. History of Present Illness 28 female presents with chest pain and anxiety. Patient states that she think she had a heart attack yesterday. She describes pain in the left chest and some radiation into her left shoulder. She states that she is very tearful with this she has a 12 or 09-bexrz-ybg at home it is really not sleeping that well so she is not sleeping that well. She has 0 CAD risk factors she has 0 PE risk factors. She denies any shortness of breath no cough or fevers no abdominal pain no pain or swelling into herlegs. She is never had a stress test or heart catheterization. No other aggravating or relieving factors no other associated symptoms no other prior treatments or complaints. She denies any chance of stating recent completion of her menstrual cycle within the last few weeks. Family: Reviewed and noncontributory Social: lives at home Review of systems negative unless otherwise specified in the HPI. Physical Exam Vitals & Measurements T: 36.8 ???C(Tympanic) HR: 79(Peripheral) RR: 16 BP: 172/113 SpO2: 99% HT: 173 cm WT: 96 kg BMI: 32.08 General: The patient appears well and in no apparent distress. Patient is resting comfortably on cart. Skin: Warm, dry, no pallor noted. Head: Normocephalic, atraumatic Neck: No JVD Eye: PERRLA, EOMI ENT: Moist mucus membranes Cardiovascular: Regular rate normal peripheral perfusion Respiratory: No respiratory distress no accessory muscle use no obvious audible wheezing Chest Wall: no deformity Musculoskeletal: normal ROM, no deformity, no swelling negative bilateral Homans' sign GI: Soft no obvious distention. No rebound or rigidity. No guarding. No tenderness. Neurological: A&O moves all extremities equal strength and symmetry. Cranial nerves grossly intact as tested Psychiatric: Cooperative and appropriate but very tearful Procedure Heart Score for Major Cardiac Event History: Example factors for history - pattern of chest pain, onset, duration, relation with exercise, stress or cold, localization, concominant symptoms. reaction to sublingual nitrates, [] Highly suspicious +2 [] Moderately suspicious +1 [x] Slightly suspicious 0 EKG: [] Significant ST-Depression +2 [] Non specific repolarization disturbance +1 [x] Normal 0 Age: [] >= 65 +2 [] 45-65 + 1 [x] <45 0 Risk Factors: (HLD, HTN, DM, Cigarette Smoking, Pos Family Hx, Obesity) [] >3 risk factors or hx of atheroslerotic disease + 2 [] 1-2 risk factors + 1 [x] No risk factors known 0 Troponin: [] >= 3X normal + 2 [] 1-3X normal + 1 [x] <= Normal 0 [x] 0-3 Points 0.9 - 1.7% risk of major adverse cardiac event in 6 weeks [] 4-6 Points 12-16.6% risk of major adverse cardiac event in 6 weeks [] 7-10 Points 50-65% risk of major adverse cardiac event in 6 weeks [] 0-3 Points with 2 sets of negative cardiac markers <1% risk of major adverse cardiac event in30 days. Medical Decision Making Workup in the ER has been reviewed and noted. PERC score is 0 heart score is 0. Patient has 2 negative troponins. Her blood pressure was markedly elevated but then it did come down spontaneously. When I went back into discharge her the blood pressure was elevated again. Her primary care physician called in a medicine for anxiety for her to take it at the pharmacy she is going to go pick it up today. Patient will see her PCP tomorrow. We discussed the possibility of starting her on antihypertensives from the emergency department. I do not know if she has situational hypertension or if she truly has essential hypertension. She coincidentally is seeing her primary care physician tomorrow I discussed this with her she is going to talk with her PCP about starting antihypertensives versus keeping a blood pressure log at home and charting any symptoms. She is comfortable being discharged will follow-up in the outpatient setting educated on return precautions as well. Assessment/Plan Chest pain (R07.9: Chest pain, unspecified) High blood pressure (I10: Essential (primary) hypertension) Orders: ketorolac, 30 mg = 1 mL, Injection, IV, Once, Stop date 07/13/24 11:49:00 EDT, STAT, Start date 07/13/24 11:49:00 EDT, 07/13/24 11:49:00 EDT Basic Metabolic Panel Beta hCG Qual CBC w/ Auto Diff ECG 12 Lead Adult ED Cardiac Monitoring eGFR Hepatic Function Panel Lipase Level Oxygen Saturation Oxygen Therapy PT & PTT Saline Lock Insert Troponin 0 Hr. Troponin 1 Hr. XR Chest Single (more content not included)...[facility] Comment on above:Result Comment: Electronically Signed By: Juan Manuel Stone DO\.caitlyn\Date and Time Signed: 07/13/24 14:04EDTED Patient Education Noteon [id number] Patient Education NoteED Patient Education NoteNoKettering Health [facility] Patient Summaryon [id number] Patient SummaryED Patient Summary [place] [id number] Patient Discharge Instructions Person Information Name: RAKESH CARDENAS Age: 28 Years Arrival Date: 07/13/2024 10:57:06 Discharge Diagnosis: Chest pain; High blood pressure Primary Care Physician: Alexandra Lopez DO Provider Information Primary Provider: Juan Manuel Stone DO Advanced Slitting [employer] Shipping Supervisor:None The exam and treatment you received in the Emergency Department were for an urgent problem and are not intended as complete care. It is important that you follow up with a doctor, nurse practitioner,or physician???s office manager executive assistant for ongoing care. If your symptoms become worse or you do not improve asexpected and you are unable to reach your usual health care provider, you should return to the Emergency Department. We are available 24 hours a day. RAKESH CARDENAS has been given the following list of patient education materials, prescriptions and follow-up instructions: Follow-up Instructions: With: Address: When: Alexandra Lopez [address] [place] [address] [facility] (1) In 1 day 07/14/2024 In the event that this physician does not participate in your insurance network, please consult with your insurance company to find a nearby participating provider. Patient Education Materials: A MESSAGE TO ALL PATIENTS REGARDING OPIOIDS PRESCRIPTION OPIOIDS: WHAT YOU NEED TO KNOW Prescription opioids can be used to help relieve unjiaeoa-hu-tkdnic pain and are often prescribed following a [...] as well, even when taken as directed: ??? Tolerance???meaning you might need to take more of the medication for the same pain relief ??? Physical dependence???meaning you have symptoms of withdrawal when a medication is stopped ??? Increased sensitivity to pain ??? Constipation ??? Nausea, vomiting, and dry mouth ??? Sleepiness and dizziness ??? Confusion ??? Depression ??? Low levels of testosterone that can result in lower sex drive, energy, and strength ??? Itching and sweating RISKS ARE GREATER WITH: ??? History of drug misuse, substance use disorder, or overdose ??? Mental health conditions (such as depression or anxiety) ??? Sleep apnea ??? Older age (65 years and older) ??? Avoid alcohol while taking prescription opioids. Also, unless specifically advised by your health care provider, medications to avoid include: ??? Benzodiazepines (such as Xanax or Valium) ??? Muscle relaxants (such as Soma or Flexeril) ??? Hypnotics (such as Ambien or Lunesta) ??? Other prescription opioids KNOW YOUR OPTIONS Talk to your health care provider about ways to manage your pain that don???t involve prescription opioids. Some of these options may actually work better and have fewer risks and side effects. Options may include: ??? Pain relievers such as acetaminophen, ibuprofen, and naproxen ??? Some medication that are also used for depression or seizures ??? Physical therapy and exercise ??? Cognitive behavioral therapy, a psychological, goal-directed approach, in which patients learn how to modify physical, behavioral, and emotional triggers of pain and stress. IF YOU ARE PRESCRIBED OPIOIDS FOR PAIN: ??? Never take opioids in greater amounts or more often than prescribed. ??? Follow up with your primary health care provider. o Work together to create a plan on how to manage your pain. o Talk about ways to help manage your pain that don???t involve prescription opioids. o Talk about any and all concerns and side effects. ??? Help prevent misuse and abuse o Never sell or share prescription opioids. o Never use another person???s prescription opioids. ??? Store prescription opioids in a secure place and out of reach of others (this may include visitors, children, friends, and family). ??? Safely dispose of unused prescription opioids: Find your community drug take-back program or your pharmacy mail-back program, or flush them down the toilet, following guidance from the Food and Drug Administration (www.fda.gov/Drugs/ResourcesForYou). ??? Visit www.cdc.gov/drugoverdose to learn about the risks of opioids abuse and overdose. ??? If you believe you may be struggling with addiction, tell your health skin care consultant and askfor guidance or (more content not included)...NormalFisher [facility] Va Medical CenterHEMATOLOGYOrdered By: SYSTEM SYSTEM on 07-13-2024 Basophils/100 WBC (Bld)0.6 %Normal0.0 - 2.0 %Remisol HemeBasophils/Leukocytes Auto (Bld) [Pure # fraction]0.0 E9/LNormal0.0 - 0.2 E9/LRemisol HemeEosinophils (Bld) [#/Vol]0.0 E9/LNormal0.0 - 0.5 E9/LRemisol HemeEosinophils/100 WBC (Bld) 0.5 %Normal0.0 - 8.0 %Remisol HemeErythrocyte distribution width (RBC) [Ratio] 13.7 %Bhggxm37.9 - 14.2 %Remisol HemeHematocrit (Bld) [Volume fraction]40.3 % Wqscgc54.0 - 46.0 %Remisol HemeHemoglobin (Bld) [Mass/Vol]13.8 g/lNJheqoj30.0 - 16.0 gm/dLRemisol HemeLymphocytes (Bld) [#/Vol]2.0 E9/LNormal1.0 - 4.0 E9/L Remisol HemeLymphocytes/100 WBC (Bld)34.4 %Lmcuyw24.0 - 50.0 %Remisol HemeMCH (RBC) [Entitic mass]29.7 rnExuqov99.0 - 34.0 pgRemisol HemeMCHC (RBC) [Mass/Vol] 34.2 g/mZMupqkt97.4 - 36.0 gm/dLRemisol HemeMCV (RBC) [Entitic vol]86.8 fLNormal 80.0 - 100.0 fLRemisol HemeMonocytes (Bld) [#/Vol]0.3 E9/LNormal0.2 - 1.0 E9/L Remisol HemeMonocytes/100 WBC (Bld)5.8 %Normal4.0 - 14.0 %Remisol Heme Neutrophils (Bld) [#/Vol]3.4 E9/LNormal2.0 - 7.5 E9/LRemisol HemeNeutrophils/100 WBC (Bld)58.7 %Qaicpc33.0 - 75.0 %Remisol HemePlatelet mean volume (Bld) [Entitic vol]7.6 fLNormal6.4 - 10.8 fLRemisol HemePlatelets (Bld) [#/Vol]353.0 E9/SKuwjyz921.0 - 500.0 E9/LRemisol HemeRBC (Bld) [#/Vol]4.6 E12/LNormal4.3 - 5.9 E12/LRemisol HemeWBC corrected for nucl RBC Auto (Bld) [#/Vol]5.8 E9/LNormal 4.0 - 11.0 E9/LRemisol HemeHep Func Panelon 91-82-2426Ajyjstw [Mass/Vol]4.6 g/dL Normal3.3-5.0Parkwood HospitalComment on above:Performed By: #### [id number] #### [facility] [address] [place], [place] [address]Jyfixni/Globulin [Mass ratio]1.8 {ratio}Normal1.1-2.2FNationwide Children's HospitalComment on above:Performed By: #### [id number] #### [facility] [address], [place] [address]Def Phos56 Int._Unit/MLzvino38-16BfcttfParkwood Hospital Comment on above:Performed By: #### [id number] #### [facility] [address], [place] [address]PCP06 Int._Unit/LNormal6-46Park[facility] HospitalComment on above:Performed By: #### [id number] #### [facility] [address], [place] [address]BVL99 Int._Unit/LNormal5-43Park[facility] HospitalComment on above:Performed By: #### [id number] #### [facility] [address], [place] [address]Upcs Direct0.0 mg/dLNormal0.0-0.4FNationwide Children's Hospital Comment on above:Performed By: #### [id number] #### [facility] [address], [place] [address]Arxo Indirect0.3 mg/dLNormal0.1-0.9[facility] Comment on above:Performed By: #### [id number] #### [facility] [address], [place] [address]Kxwn Total0.3 mg/dLNormal0.0-1.1FNationwide Children's Hospital Comment on above:Performed By: #### [id number] #### [facility] [address], [place] [address]Yjqrlzkb (S) [Mass/Vol]2.6 g/dLNormal1.4-4.0Parkwood HospitalComment on above:Performed By: #### [id number] #### [facility] [address], [place] [address]Sqjojos [Mass/Vol]7.2 g/dLNormal6.0-7.8Parkwood HospitalComment on above:Performed By: #### [id number] #### [facility] [address], [place] [address]Fivjke Levelon 34-62-4912Gkxkde Lvl19 unit/QTfonax80-43XvervwParkwood HospitalComment on above:Performed By: #### [id number] #### [facility] [address], [place] [address]CN & PTTon 65-62-2869HMM Coag (PPP) [Relative time]1.03 {INR} Invalid Interpretation CodeParkwood HospitalComment on above:Result Comment: INR results are specifically intended to assess patients stabilized on long-term Anticoagulation therapy suggested INR???s ???Less Intensive Anticoagulation??? 2.0 ??? 3.0 Conventional Range 3.0 ??? 4.5Performed By: #### [id number] #### [facility] [address], [place] [address]DR37.5 second(s)Normal9.4-12.5FNationwide Children's Hospital Comment on above:Result Comment: 15 days - 4 weeks 1 - 5 months 6 -11 months 1-5 years 6-10 years 11 -17 years Mean: 11.2 (9.5-12.6) Mean: 11.0 (9.7-12.8) Mean: 11.0 (9.8-13.0) Mean: 11.3 (9.9-13.4) Mean: 11.7 (10.0-14.6) Mean: 11.8 (10.0 - 14.1) Pediatric Reference ranges were obtained from a study by mami Winslow alPatrizia prepared from 1437 samples obtained at 7 different centers using the same coagulation reagent and instrumentation as [facility]. Currently there are no coagulation studies available worldwide for children to 14 days, andno normal ranges.Performed By: #### [id number] #### [facility] [address], [place] [address]KXG19.3 second(s)High25.1-36.5[facility] Comment on above:Result Comment: Parameter 15 days - 4 weeks 1 - 5 months 6 - 11 months 1 - 5 years 6 - 10 years 11 - 17 years PTT Mean: 35.4 (27.6-45.6) Mean: 33.5 (24.8-40.7) Mean: 32.4 (25.1-40.7) Mean: 31.6 (24.0-39.2) Mean: 31.6 (26.9-38.7) Mean: 31.0 (24.6-38.4) Pediatric Reference ranges were obtained from a study by mami Winslow al. prepared from 1437 samples obtained at 7 different centers using the same coagulation reagent and instrumentation as [facility]. Currently there are no coagulation studies available worldwide for children to 14 days, andno normal ranges. Heparin therapeutic range (represented by Anti-Factor Xa activity of 0.2 - 0.4 U/mL) corresponds to PTT of 56.6 - 109.0 sec.Performed By: #### [id number] #### [facility] [address], [place] [address]AQAUDUBBXgdaare By: Kim Dyer on 44-23-3164Yonf HCG ( test) QlNegative (07/13/24 11:37 AM)NormalOKLAHOMA STATE UN[facility]ERS[facility] Man SeroTroponin 0 Hr.on 50-01-0581Qhexmgfg HS<2.30 Low10.10-27.10Parkwood HospitalComment on above:Result Comment: The 95% CI (Confidence Interval) PPV (Positive Predictive Value) for myocardial infa rction in females is 38 pg/mL, in males 51 pg/mL. The results should be used in conjunction with clinical conditions of myocardial infarction. (Access High Sensitivity Troponin I Instructions For Use, [employer], September 2017)Performed By: #### [id number] #### [facility] [address], [place] [address]Gywfsuzr 1 Hr.on 46-40-6364Udxwofne HS<2.41Zyq87.10-27.10Parkwood HospitalComment on above:Result Comment: The 95% CI (Confidence Interval) PPV (Positive Predictive Value) for myocardial infarction in females is 38 pg/mL, in males 51 pg/mL. The results should be used in conjunction with clinical conditions of myocardial infarction. (Access High Sensitivity Troponin I Instructions For Use, [employer], September 2017)Performed By: #### [id number] #### [facility] [address], [place] [address]TX Chest Single Viewon 84-88-8812LR Chest Single ViewExam Date/Time: 07/13/2024 11:56 EDT Reason for Exam: Chest pain Report IMPRESSION: NO EVIDENCE OF ACTIVE CARDIOPULMONARY DISEASE, BY PORTABLE CHEST RADIOGRAPHY. EXAM: XR Chest Single View DATE: 07/13/2024 11:43 AM CLINICAL HISTORY: Chest pain. COMPARISON: None available. TECHNIQUE: A portable upright AP radiograph of the chest was obtained. FINDINGS: There is no significant pulmonary infiltrate, cardiomegaly, vascular congestion, sizable pleural effusion, pneumothorax, or other findings of concern identified. Ordering Provider: Juan Manuel Stone FINAL REPORT Dictated: 07/13/2024 12:23 pm Alhaji Gerber MD Signed (Electronic Signature): 07/13/2024 12:23 pm Signed by: Alhaji Gerber MD Transcribed by: KAYKAY Technologist: LEANNAdena Fayette Medical CentereGFRon 04-14-5405aHTX298 mL/min/1.73 w5Tbjufy>=59Fisher [facility] Va Medical CenterComment on above:Performed By: #### [id number] #### [facility] [address] [place], [place] [address]Xorieoppha Visit Summaryon 03-94-3087Dsjoyosnqj Visit Summary Ambulatory Visit Summary RAKESH CARDENAS :1995 Visit Date:03/18/2024 Ambulatory Visit Instructions Your Diagnosis Viral URI Your Care Team Attending Physician - Alana Parker CNP Primary Care Physician - Alexandra Lopez DO This Is Your Medications List brompheniramine/dextromethorphan/PSE (Bromfed DM oral syrup) Contact prescribing physician if questions or concerns multivitamin, ( Multivitamins with Vitamin B Complex, Vitamin C, Minerals and L-Methylfolate oral capsule) Procedures Performed Excision of adenoid (1998). Discharge Vitals Temperature (Tympanic) 37 ???C Heart Rate (Peripheral) 100 Blood Pressure 124/84 Height 173 cm Height 68 in Weight 97.8 kg Weight 215.612 lb BMI 32.68 Medications What How Much When Why Instructions New brompheniramine/ dextromethorphan/ PSE (Bromfed DM oral syrup) 10 Milliliter By Mouth 4 times aday as needed for for cough and congestion Viral URI Duration: 10 Days Pickup at [facility] #[id number] Unchanged multivitamin, ( Multivitamins with Vitamin B Complex, Vitamin C, Minerals and L-Methylfolate oral capsule) 1 Capsules By Mouth Every day Contact prescribing physician if questions or concerns Pharmacy Information [facility] #[id number]: [address] [place], [place] [id number] [phone] Allergies sulfa drugs (hives) Problems Ongoing - Any problem that you are currently receiving treatment for. Amenorrhea BMI 25.0-25.9,adult Breast pain Dietary counseling Encounter for completion of form with patient Exercise counseling Nipple pain Overweight with body mass index (BMI) of 26 to 26.9 in adult Visit for preventive health examination Historical - Any problem that you are no longer receiving treatment for. Smoker Patient Survey You may receive a survey via text or e-mail asking about your office visit. Please share your experience with us by completing your survey. We appreciate your feedback and thank you for choosing us for your care. [facility] Medicine Office/Clinic Noteon 89-00-9244Aegbnt Medicine Office/Clinic NoteTempleton [facility]/Clinic Note Chief Complaint fever HPI Staff 28 year old female presents with fever, cough, sore throat, loss of appetite, body aches, head achesince yesterday otc: dayquil History of Present Illness Rakesh is a 28 year old female presenting today with fever (highest of 101), cough, sore throat, decreased appetite, body aches, headache since yesterday. 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 Review of Systems PHQ Score Initial Depression Screen Score: 0 SCORE Constitutional: mild fever, reports chills, no sweats, no weakness, reports headache, reports fatigue, reports body aches. Skin: no rash, no skin lesions, no petechiae. Eyes: mild eye irritation, no eye drainage, no eye redness. Ears: no ear pain, no __ ear drainage, no_ itching, no_ tinnitus, no popping, no muffled hearing. Nose: clear rhinorrhea, mild nasal congestion, no anosmia, no sneezing. Throat/Mouth: reports soreness, no difficulty swallowing, no hoarseness, no dysgeusia, reports postnasal drip. Respiratory: no shortness of breath, mild, productive cough, no wheezing. Cardiovascular: no chest pain, no palpitations, no edema. Gastrointestinal: no nausea, no vomiting, no diarrhea, no abdominal pain. Physical Exam Vitals & Measurements T: 37 ???C(Tympanic) HR: 100(Peripheral) BP: 124/84 SpO2: 96% HT: 68 in HT: 173 cm WT: 97.8 kg WT: 215.612 lb BMI: 32.68 General: well developed, well groomed, obese female, in no acute distress. Eyes: pupils equal, round, reactive to light. Conjunctivae normal and sclera clear. Ears: bilateral external canals intact , no discharge. Bilateral tympanic membrane pearly pollock and intact, light reflex present. No pain with manipulation of tragus and pinna bilaterally. Hearing grossly normal to conversational speech. Nose: no congestion, no erythema; pink & moist turbinates; clear rhinorrhea. Mouth: mucous membranes pink, moist and intact. [place] posterior oropharynx, no palatal inflammation,uvula midline, no cobble-stoning, no enlarged tonsils, no tonsillar exudate, no ulcers, no active post nasal drip. Good dentition. Neck: supple, no masses palpable. Trachea midline. No stridor or nuchal rigidity. No palpable cervical adenopathy. Lungs: normal respiratory effort. Lungs clear and equal to auscultation throughout all borjas anterior and posterior. Symmetrical chest rise and fall bilaterally. No conversational dyspnea. Cardiovascular: S1 and S2 present, with regular rate and rhythm. No murmur. Abdomen: soft, non-distended, non-tender. No organomegaly. No guarding or rigidity. Bowel sounds active throughout. Skin: [place], warm and dry. No rashes, ulcerations, or suspicious lesions noted on visible/exposed skin. Mental status: alert and oriented x 3. Normal mood and affect, normal behavior for age. Assessment/Plan 1. Viral URI (J06.9: Acute upper respiratory infection, unspecified) Rakesh tested negative for flu and COVID. Reviewed with patient that physical exam and symptoms areconsistent with a viral infection. Discussed antibiotics unfortunately do not treat viral illnesses, it will take time to run its course. The first 3-5 days of symptoms are typically the worst (fever, body aches, etc), with cold symptoms lasting 7-14 days. Encouraged fluids to keep secretions thin. Rest. May take Bromfed QID PRN for symptoms. Recommended using cool-mist humidifier in room, coughing/sneezing into elbow, frequent and thoroughhand hygiene. Encouraged to seek re-evaluation with PCP if symptoms persist beyond 14 days without any improvement, and if any fevers above 101 develop, as could have a secondary bacterial infection requiring antibiotics. Patient and/or parent verbalized understanding of treatment plan. Work note provided. Ordered: brompheniramine/dextromethorphan/PSE, 10 mL, Oral, QID for cough and congestion for 10 day(s), 240 mL, Refill(s) 0, [facility] #[id number], 173, cm, 03/18/24 13:39:00 EST, Height/Length Dosing, 97.8, kg, 03/18/24 13:39:00 EST, Weight Dosing Orders: clotrimazole topical, 1 lenin, Topical, BID, 24 gram, Refill(s) 0, [facility] #[id number], 175, cm, 12/26/21 13:50:00 EST, Height/Length Dosing, 91.7, kg, 12/26/21 13:50:00 EST, Weight Dosing fluconazole, 200 mg = 1 tab(s), Oral, Once, # 1 tab(s), Refills(s) 0, Pharmacy: [facility] #[id number], 175, cm, 12/26/21 13:50:00 EST, Height/Length Dosing, 91.7, kg, 12/26/21 13:50:00 EST, Weight Dosing Influenza Type A&B POC 92064 Rapid COVID POC 47527 Follow-up With When Contact Information Alexandra Lopez DO, FAM Within 7 to 10 days, only if needed [address] [place] [address]- Additional Instructions: Problem List/Past Medical History Ongoing Amenorrhea BMI 25.0-25.9,adult Breast pain Dietary counseli (more content not included)...[facility] Comment on above:Result Comment: Electronically Signed By: Alana Parker CNP.br\Date and Time Signed: 03/18/24 14:27 ESTProvider Letteron 03-18-2024 Provider LetterProvider Letter [address] [place] [address] [phone] March 18, 2024 RAKESH CARDENAS [address] [place] [address] : 1995 To Whom It May Concern, Please excuse the above patient from work. Date of Illness: 04/07/24 May Return to Work On: 03/23/24 as long as fever-free x 24 hours without fever- reducing medications and all symptoms have improved. Sincerely, Alana Parker, MSN, BEAD WORKER SEWING, BUSINESS CONTINUITY PLANNING DIRECTOR-C Certified Nurse Practitioner Renetta [address] [address] P: [phone] [email or web address] [email or web address] Medical CenterIGP,APTIMA HPV,AGE GDLNon 55-80-0495ZWQ GDLN ACOG TESTINGNote.[facility] HealthcareComment on above:TESTS RESULT FLAG UNITS REF RANGE LAB Clinician Provided Cytology Information Source.............Cervix;Endocervix No. of containers..01 ThinPrep Vial Age Algo ACOG Ayla... FLAG LEGEND: L-Low Normal,H-High Normal,LL-Alert Low,HH-Alert High <-Panic Low,>-Panic High,A-Abnormal,AA-Critical Abnormal Performed at: 01 =[address] [facility] [address] Anette Yancey MD, HPV APTIMANegativeNegativeNOMS HealthcareComment on above:This nucleic acid amplification test detects fourteen high- risk HPV types (16,18,31,33,35,39,45,51,52,56,58,59,66,68) without differentiation. Performed at: =[facility] [id number] Partition Notcher: Anette Yancey MD, Phone: [phone] Performed at: - [facility] [address], [place] [id number] Partition Notcher: Anette Yancey MD, Phone: [phone] IGP, APTIMA HPV, RFX 16/18,45Note.NOMS HealthcareComment on above:TESTS RESULT FLAG UNITS REF RANGE LAB DIAGNOSIS: 02 NEGATIVE FOR INTRAEPITHELIAL LESION OR MALIGNANCY. Specimen adequacy: 02 Satisfactory for evaluation. Endocervical and/or squamous metaplastic cells (endocervical component) are present. Performed by: Riana Cortez, Boat Worker ([facility]) . 02 Note: Note 02 The Pap smear is a screening test designed to aid in the detection of premalignant and malignant conditions of the uterine cervix. It is not a diagnostic procedure and should not be used as the sole means of detecting cervical cancer. Both false-positive and false-negative reports do occur. Test Methodology: Note 02 This liquid based ThinPrep(R) pap test was screened with the use of an image guided system. HPV Genotype Reflex Note 02 Criteria not met, HPV Genotype not performed. FLAG LEGEND: L-Low Normal,H-High Normal,LL-Alert Low,HH-Alert High <-Panic Low,>-Panic High,A-Abnormal,AA-Critical Abnormal Performed at: 02 [facility] [address] [place] [address] Anette Yancey MD, BRUSH-SPATULA CERVIX ENDOCERVIX CLINISYNCNOMS HealthcareUS OB GROWTHon 03-08-[place]xd[place]i, [place] [address] Ultrasound Report Signed Patient: RAKESH CARDENAS MR#: [id number] : 1995 Acct:[id number] Age/Sex: 27 / F ADM Date: 06/12/23 Loc: [facility] Attending Dr: Shay Lorenzo D.O. Ordering Physician: Shay Lorenzo D.O. Date of Service: 06/12/23 Procedure(s): US OB growth Accession Number(s): [id number] cc: Shay Lorenzo D.O.; Physician,Non-Staff [address] [place] [id number] Patient Name: RAKESH CARDENAS MRN: [id number] date: 1995 Sex: F Assigned [facility] Current Patient Location: [facility] Accession/Order Number: [id number] Exam Date: 06/12/2023 11:04 Report Date: 06/12/2023 11:31 At the request of: SHAY LORENZO Procedure: US OB growth EXAMINATION: US [...] 11:31 Dictated By: Storm Rose M.D. Signed By: 06/12/23 1134 DD/ 1131 TD/TT: Asphalt Paver Operator:TBHRadiology, Radiologist, - 06/12/2023 [place] [address] Ultrasound Report Signed Patient: RAKESH CARDENAS MR#: [id number] : 1995 Acct:[id number] Age/Sex: 27 / F ADM Date: 06/12/23 Loc: [facility] Attending Dr: Shay Lorenzo D.O. Ordering Physician: Shay Lorenzo D.O. Date of Service: 06/12/23 Procedure(s): US OB growth Accession Number(s): [id number] cc: Shay Lorenzo D.O.; Physician,Non-Staff Venkat [address] [place] [address] Patient Name: RAKESH CARDENAS MRN: [id number] date: 1995 Sex: F Assigned Patient Location: [facility] Current Patient Location: [facility] Accession/Order Number: [id number] Exam Date: 06/12/2023 11:04 Report Date: 06/12/2023 11:31 At the request of: SHAY LORENZO Procedure: US OB growth EXAMINATION: US [...] 11:31 Dictated By: Storm Rose M.D. Signed By: 06/12/23 1134 DD/ 1131 TD/TT: Asphalt Paver Operator: CHIP HealthcareRadiology Study observation (narrative)CHIP HealthcareUS OB GROWTHOrdered By: Radiologist Radiology on 33-71-9070PDKH [employer] Work Phone: US OB BPP W NON-STRESSon [phone], [place] [address] Ultrasound Report Signed Patient: RAKESH CARDENAS MR#: [id number] : 1995 Acct:[id number] Age/Sex: 27 / F ADM Date: 06/04/23 Loc: US Attending Dr: Shay Lorenzo D.O. Ordering Physician: Shay Lorenzo D.O. Date of Service: 06/04/23 Procedure(s): US OB BPP w non-stress Accession Number(s): [id number] cc: Shay Lorenzo D.O.; Physician,Non-Staff Venkat The [address] [address] Patient Name: RAKESH CARDENAS MRN: [id number] date: 1995 Sex: F Assigned Patient Location: [facility] Current Patient Location: Accession/Order Number: [id number] Exam Date: 06/04/2023 19:43 Report Date: 06/05/2023 07:07 At the request of: SHAY LORENZO Procedure: US OB BPP w non-stress [...] biophysical profile score 8.0. Electronically authenticated by: BRITTANIE RODRIGUEZ Date: 06/05/2023 07:07 Dictated By: Brittanie Rodriguez M.D. Signed By: 06/05/23708 DD/ 6 TD/TT: Asphalt Paver Operator:THERESAadiologcourtney, Radiologist, - 06/05/2023 [place] [address] Ultrasound Report Signed Patient: RAKESH CARDENAS MR#: [id number] : 1995 Acct:[id number] Age/Sex: 27 / F ADM Date: 06/04/23 Loc: US Attending Dr: Shay Lorenzo D.O. Ordering Physician: Shay Lorenzo D.O. Date of Service: 06/04/23 Procedure(s): US OB BPP w non-stress Accession Number(s): [id number] cc: Shay Lorenzo D.O.; Physician,Non-Staff Venkat [facility] [place] [address] Patient Name: RAKESH CARDENAS MRN: [id number] date: 1995 Sex: F Assigned Patient Location: [facility] Current Patient Location: Accession/Order Number: [id number] Exam Date: 06/04/2023 19:43 Report Date: 06/05/2023 07:07 At the request of: SHAY LORENZO Procedure: US OB BPP w non-stress [...] biophysical profile score 8.0. Electronically authenticated by: BRITTANIE RODRIGUEZ Date: 06/05/2023 07:07 Dictated By: Brittanie Rodriguez M.D. Signed By: 06/05/23708 DD/ 6 TD/TT: Asphalt Paver Operator: CHIP HealthcareRadiology Study observation (narrative)NOM HealthcareUS OB BPP W NON-STRESSOrdered By: Radiologist Radiology on 38-45-9693HDYX [employer] Work Phone: US OB BPP W NON-STRESSon 68-28-3770[place]sc[place]aysi, [place] [address] Ultrasound Report Signed Patient: RAKESH CARDENAS MR#: [id number] : 1995 Acct:[id number] Age/Sex: 27 / F ADM Date: 05/28/23 Loc: US Attending Dr: Shay Lorenzo D.O. Ordering Physician: Shay Lorenzo D.O. Date of Service: 05/28/23 Procedure(s): US OB BPP w non-stress Accession Number(s): [id number] cc: Shay Lorenzo D.O.; Physician,Non-Staff Venkat [place] [id number] Patient Name: RAKESH CARDENAS MRN: [id number] date: 1995 Sex: F Assigned Patient Location: [facility] Current Patient Location: Accession/Order Number: [id number] Exam Date: 05/28/2023 19:04 Report Date: 05/29/2023 07:17 At the request of: SHAY LORENZO Procedure: US OB BPP w non-stress [...] 07:17 Dictated By: Storm Rose M.D. Signed By: 05/29/23718 DD/ 6 TD/TT: Asphalt Paver Operator:TBHRadiology, Radiologist, - 05/29/2023 [place] [address] Ultrasound Report Signed Patient: RAKESH CARDENAS MR#: [id number] : 1995 Acct:[id number] Age/Sex: 27 / F ADM Date: 05/28/23 Loc: US Attending Dr: Shay Lorenzo D.O. Ordering Physician: Shay Lorenzo D.O. Date of Service: 05/28/23 Procedure(s): US OB BPP w non-stress Accession Number(s): [id number] cc: Shay Lorenzo D.O.; Physician,Non-Staff Venkat [facility] [place] [address] Patient Name: RAKESH CARDENAS MRN: [facility]:[id number] date: 1995 Sex: F Assigned Patient Location: [facility] Current Patient Location: Accession/Order Number: [id number] Exam Date: 05/28/2023 19:04 Report Date: 05/29/2023 07:17 At the request of: SHAY LORENZO Procedure: US OB BPP w non-stress [...] 07:17 Dictated By: Storm Rose M.D. Signed By: 05/29/23718 DD/ 6 TD/TT: Asphalt Paver Operator: NOMS HealthcareRadiology Study observation (narrative)NOMS HealthcareUS OB BPP W NON-STRESSOrdered By: Radiologist Radiology on 98-21-4603[facility] Work Phone: US OB BPP W NON-STRESSon 87-62-8827[place]aysi, [place] [address] Ultrasound Report Signed Patient: RAKESH CARDENAS MR#: [id number] : 1995 Acct:[id number] Age/Sex: 27 / F ADM Date: 05/21/23 Loc: US Attending Dr: Shay Lorenzo D.O. Ordering Physician: Shay Lorenzo D.O. Date of Service: 05/21/23 Procedure(s): US OB BPP w non-stress Accession Number(s): [id number] cc: Shay Lorenzo D.O.; Physician,Non-Staff Venkat [facility] [place] [address] Patient Name: RAKESH CARDENAS MRN: [facility]:[id number] date: 1995 Sex: F Assigned Patient Location: [facility] Current Patient Location: Accession/Order Number: [id number] Exam Date: 05/21/2023 19:04 Report Date: 05/22/2023 07:26 At the request of: SHAY LORENZO Procedure: US OB BPP w non-stress [...] 07:26 Dictated By: Storm Rose M.D. Signed By: 05/22/23728 DD/ 5 TD/TT: Asphalt Paver Operator:LEONARDAHRadiology, Radiologist, - 05/22/2023 [place] [address] Ultrasound Report Signed Patient: RAKESH CARDENAS MR#: [id number] : 1995 Acct:[id number] Age/Sex: 27 / F ADM Date: 05/21/23 Loc: US Attending Dr: Shay Lorenzo D.O. Ordering Physician: Shay Lorenzo D.O. Date of Service: 05/21/23 Procedure(s): US OB BPP w non-stress Accession Number(s): [id number] cc: Shay Lorenzo D.O.; Physician,Non-Staff Venkat [facility] [place] [address] Patient Name: RAKESH CARDENAS MRN: [id number]:[id number] date: 1995 Sex: F Assigned Patient Location: [facility] Current Patient Location: Accession/Order Number: [id number] Exam Date: 05/21/2023 19:04 Report Date: 05/22/2023 07:26 At the request of: SHAY LORENZO Procedure: US OB BPP w non-stress [...] 07:26 Dictated By: Storm Rose M.D. Signed By: 05/22/23728 DD/ 5 TD/TT: Asphalt Paver Operator: CHIP HealthcareRadiology Study observation (narrative)NOMS HealthcareUS OB BPP W NON-STRESSOrdered By: Radiologist Radiology on 86-46-6100ZV[facility] Work Phone: US OB BPP W NON-STRESSon 85-79-1569[place]ry[place]i, [place] [address] Ultrasound Report Signed Patient: RAKESH CARDENAS MR#: [id number] : 1995 Acct:[id number] Age/Sex: 27 / F ADM Date: 05/15/23 Loc: FBCO Attending Dr: Shay Lorenzo D.O. Ordering Physician: Shay Lorenzo D.O. Date of Service: 05/15/23 Procedure(s): US OB BPP w non-stress Accession Number(s): [id number] cc: Shay Lorenzo D.O.; Physician,Non-Staff Venkat [place] [id number] Patient Name: RAKESH CARDENAS MRN: [id number] date: 1995 Sex: F Assigned Patient Location: [facility] Current Patient Location: Accession/Order Number: [id number] Exam Date: 05/15/2023 19:00 Report Date: 05/16/2023 07:19 At the request of: SHAY LORENZO Procedure: US OB BPP w non-stress [...] biophysical profile score 8.0. Electronically authenticated by: RBITTANIE RODRIGUEZ Date: 05/16/2023 07:19 Dictated By: Brittanie Rodriguez M.D. Signed By: 05/16/23720 DD/ 8 TD/TT: Asphalt Paver Operator:THERESAadiolneftali Radiologist, - 05/16/2023 [place] [address] Ultrasound Report Signed Patient: RAKESH CARDENAS MR#: [id number] : 1995 Acct:[id number] Age/Sex: 27 / F ADM Date: 05/15/23 Loc: FBCO Attending Dr: Shay Lorenzo D.O. Ordering Physician: Shay Lorenzo D.O. Date of Service: 05/15/23 Procedure(s): US OB BPP w non-stress Accession Number(s): [id number] cc: Shay Lorenzo D.O.; Physician,Non-Staff Venkat [facility] [place] [address] Patient Name: RAKESH CARDENAS MRN: [facility]:[id number] date: 1995 Sex: F Assigned Patient Location: [facility] Current Patient Location: Accession/Order Number: [id number] Exam Date: 05/15/2023 19:00 Report Date: 05/16/2023 07:19 At the request of: SHAY LORENZO Procedure: US OB BPP w non-stress [...] biophysical profile score 8.0. Electronically authenticated by: BRITTANIE RODRIGUEZ Date: 05/16/2023 07:19 Dictated By: Brittanie Rodriguez M.D. Signed By: 05/16/23720 DD/ 8 TD/TT: Asphalt Paver Operator: CHIP HealthcareRadiology Study observation (narrative)CHIP EspinoUS OB BPP W NON-STRESSOrdered By: Radiologist Radiology on 48-21-9018[facility] Work Phone: US OB BPP W NON-STRESSon 75-40-7806Qvu[place]i, [place] [address] Ultrasound Report Signed Patient: RAKESH CARDENAS MR#: [id number] : 1995 Acct:[id number] Age/Sex: 27 / F ADM Date: 05/07/23 Loc: US Attending Dr: Shay Lorenzo D.O. Ordering Physician: Shay Lorenzo D.O. Date of Service: 05/07/23 Procedure(s): US OB BPP w non-stress Accession Number(s): [id number] cc: Shay Lorenzo D.O.; Physician,Non-Staff Venkat [place] [address] Patient Name: RAKESH CARDENAS MRN: [id number] date: 1995 Sex: F Assigned Patient Location: [facility] Current Patient Location: Accession/Order Number: [id number] Exam Date: 05/07/2023 19:16 Report Date: 05/08/2023 07:15 At the request of: SHAY LORENZO Procedure: US OB BPP w non-stress [...] biophysical profile score 8.0. Electronically authenticated by: BRITTANIE RODRIGUEZ Date: 05/08/2023 07:15 Dictated By: Brittanie Rodriguez M.D. Signed By: 05/08/23717 DD/ 4 TD/TT: Asphalt Paver Operator:THERESAadiolneftali, MD Alejandro - 05/08/2023 [place] [address] Ultrasound Report Signed Patient: RAKESH CARDENAS MR#: [id number] : 1995 Acct:[id number] Age/Sex: 27 / F ADM Date: 05/07/23 Loc: US Attending Dr: Shay Lorenzo D.O. Ordering Physician: Shay Lorenzo D.O. Date of Service: 05/07/23 Procedure(s): US OB BPP w non-stress Accession Number(s): [id number] cc: Shay Lorenzo D.O.; Physician,Non-Staff Venkat [facility] [place] [address] Patient Name: RAKESH CARDENAS MRN: [id number] date: 1995 Sex: F Assigned Patient Location: [facility] Current Patient Location: Accession/Order Number: [id number] Exam Date: 05/07/2023 19:16 Report Date: 05/08/2023 07:15 At the request of: SHAY LORENZO Procedure: US OB BPP w non-stress [...] biophysical profile score 8.0. Electronically authenticated by: BRITTANIE RODRIGUEZ Date: 05/08/2023 07:15 Dictated By: Brittanie Rodriguez M.D. Signed By: 05/08/23717 DD/ 4 TD/TT: Asphalt Paver Operator: CHIP HealthcareRadiology Study observation (narrative)CHIP EspinoUS OB BPP W NON-STRESSOrdered By: Radiologist Radiology on 83-48-1511[facility] Work Phone: US AMNIOTIC FLUID VOLUMEon 50-02-0651FpiHaysi, [place] [address] Ultrasound Report Signed Patient: RAKESH CARDENAS MR#: [id number] : 1995 Acct:[id number] Age/Sex: 27 / F ADM Date: 05/02/23 Loc: NOMS Attending Dr: Shay Lorenzo D.O. Ordering Physician: Shay Lorenzo D.O. Date of Service: 05/02/23 Procedure(s): US OB amniotic fluid vol Accession Number(s): [id number] cc: Shay Lorenzo D.O.; Physician,Non-Staff Venkat [place] [id number] Patient Name: RAKESH CARDENAS MRN: [id number] date: 1995 Sex: F Assigned Patient Location: [facility] Current Patient Location: [facility] Accession/Order Number: [id number] Exam Date: 05/02/2023 08:43 Report Date: 05/02/2023 09:25 At the request of: SHAY LORENZO Procedure: US OB amniotic fluid vol [...] now within normal limits. Electronically authenticated by: BRITTANIE RODRIGUEZ Date: 05/02/2023 09:25 Dictated By: Brittanie Rodriguez M.D. Signed By: 05/02/23926 DD/ 4 TD/TT: Asphalt Paver Operator:THERESAadiologcourtney, Radiologist, - 05/02/2023 [place] [address] Ultrasound Report Signed Patient: RAKESH CARDENAS MR#: [id number] : 1995 Acct:[id number] Age/Sex: 27 / F ADM Date: 05/02/23 Loc: NOMS Attending Dr: Shay Lorenzo D.O. Ordering Physician: Shay Lorenzo D.O. Date of Service: 05/02/23 Procedure(s): US OB amniotic fluid vol Accession Number(s): [id number] cc: Shay Lorenzo D.O.; Physician,Non-Staff Venkat [facility] [place] [address] Patient Name: RAKESH CARDENAS MRN: [id number] date: 1995 Sex: F Assigned Patient Location: [facility] Current Patient Location: [facility] Accession/Order Number: [id number] Exam Date: 05/02/2023 08:43 Report Date: 05/02/2023 09:25 At the request of: SHAY LORENZO Procedure: US OB amniotic fluid vol [...] now within normal limits. Electronically authenticated by: BRITTANIE RODRIGUEZ Date: 05/02/2023 09:25 Dictated By: Brittanie Rodriguez M.D. Signed By: 05/02/23926 DD/ 4 TD/TT: Asphalt Paver Operator: CHIP EspinoRadiology Study observation (narrative)CHIP Evans AMNIOTIC FLUID VOLUMEOrdered By: Radiologist Radiology on 60-85-9326[facility] Work Phone: US OB GROWTHon 78-83-3701LxmHaysi, [place] [address] Ultrasound Report Signed Patient: RAKESH CARDENAS MR#: [id number] : 1995 Acct:[id number] Age/Sex: 27 / F ADM Date: 05/01/23 Loc: NOMS Attending Dr: Shay Lorenzo D.O. Ordering Physician: Shay Lorenzo D.O. Date of Service: 05/01/23 Procedure(s): US OB growth Accession Number(s): [id number] cc: Shay Lorenzo D.O.; Physician,Non-Staff Venkat [place] [id number] Patient Name: RAKESH CARDENAS MRN: [id number] date: 1995 Sex: F Assigned Patient Location: [facility] Current Patient Location: [facility] Accession/Order Number: [id number] Exam Date: 05/01/2023 13:29 Report Date: 05/01/2023 14:25 At the request of: SHAY LORENZO Procedure: US OB growth EXAMINATION: US OB growth HISTORY: LGA COMPARISON: 03/18/2023 TECHNIQUE: Transabdominal sonographic examination was performed for obstetrical and evaluation. FINDINGS: Number: 1 Heart Rate: 136.0 bpm H.B. /min Amniotic Fluid Volume: 8.8 cm, 5th percentile 8.6 cm. Largest fluid pocket 4.0 cm Placental Location: Blank BIOMETRY: BPD: 8.2 [...] 14:25 Dictated By: Storm Rose M.D. Signed By: 05/01/23 1427 DD/ 1425 TD/TT: Asphalt Paver Operator:TBHRadiology, Radiologist, MD - 05/01/2023 [place] [address] Ultrasound Report Signed Patient: RAKESH CARDENAS MR#: [id number] : 1995 Acct:[id number] Age/Sex: 27 / F ADM Date: 05/01/23 Loc: NOMS Attending Dr: Shay Lorenzo D.O. Ordering Physician: Shay Lorenzo D.O. Date of Service: 05/01/23 Procedure(s): US OB growth Accession Number(s): [id number] cc: Shay Lorenzo D.O.; Physician,Non-Staff Venkat [facility] [place] [address] Patient Name: RAKESH CARDENAS MRN: [id number] date: 1995 Sex: F Assigned Patient Location: [facility] Current Patient Location: NOMS Accession/Order Number: [id number] Exam Date: 05/01/2023 13:29 Report Date: 05/01/2023 14:25 At the request of: SHAY LORENZO Procedure: US OB growth EXAMINATION: US OB growth HISTORY: LGA COMPARISON: 03/18/2023 TECHNIQUE: Transabdominal sonographic examination was performed for obstetrical and evaluation. FINDINGS: Number: 1 Heart Rate: 136.0 bpm H.B. /min Amniotic Fluid Volume: 8.8 cm, 5th percentile 8.6 cm. Largest fluid pocket 4.0 cm Placental Location: Blank BIOMETRY: BPD: 8.2 [...] 14:25 Dictated By: Storm Rose M.D. Signed By: 05/01/23 1427 DD/ 1425 TD/TT: Asphalt Paver Operator: CHIP HealthcareRadiology Study observation (narrative)NOMS HealthcareUS OB GROWTHOrdered By: Radiologist Radiology on 64-92-1432[facility] Work Phone: no Panel InformationOrdered By: Radiologist Radiology on 08-82-4899[facility] Work Phone: no Panel Informationon 84-94-0206Tqnsfbzte Study observation (narrative)NOMS SrinivasUS OB INCOMPLETE ANATOMYon 55-82-1064[place]ytHaysi, [place] [address] Ultrasound Report Signed Patient: RAKESH CARDENAS MR#: [id number] : 1995 Acct:[id number] Age/Sex: 27 / F ADM Date: 03/18/23 Loc: NOMS Attending Dr: Shay Lorenzo D.O. Ordering Physician: Shay Lorenzo D.O. Date of Service: 03/18/23 Procedure(s): US OB incomplete anatomy Accession Number(s): [id number] cc: Shay Lorenzo D.O.; Physician,Non-Staff Venkat The [address] [address] Patient Name: RAKESH CARDENAS MRN: [id number] date: 1995 Sex: F Assigned Patient Location: [facility] Current Patient Location: NOMS Accession/Order Number: [id number] Exam Date: 03/18/2023 08:05 Report Date: 03/18/2023 08:52 At the request of: SHAY LORENZO Procedure: US OB incomplete anatomy EXAMINATION: US OB follow up, US OB incomplete anatomy HISTORY: ECHOGENIC FOCI COMPARISON: 02/14/2023 FINDINGS: position: Cephalic presentation, longitudinal lie Heart rate: 140 bpm Amniotic fluid: Subjectively normal Anatomy: Previously identified echogenic cardiac focus is no longer seen US/US OB incomplete anatomy IMPRESSION: Interval resolution of previously identified right ventricular echogenic focus Electronically authenticated by: STORM ROSE Date: 03/18/2023 08:52 Dictated By: Storm Rose M.D. Signed By: 03/18/23 0855 DD/ 0852 TD/TT: Asphalt Paver Operator:LEONARDAHRadiology, Radiologist, - 03/18/2023 [place] [address] Ultrasound Report Signed Patient: RAKESH CARDENAS MR#: [id number] : 1995 Acct:[id number] Age/Sex: 27 / F ADM Date: 03/18/23 Loc: NOMS Attending Dr: Shay Lorenzo D.O. Ordering Physician: Shay Lorenzo D.O. Date of Service: 03/18/23 Procedure(s): US OB incomplete anatomy Accession Number(s): [id number] cc: Shay Lorenzo D.O.; Physician,Non-Staff Venkat The [address] [address] Patient Name: RAKESH CARDENAS MRN: [id number] date: 1995 Sex: F Assigned Patient Location: [facility] Current Patient Location: [facility] Accession/Order Number: [id number] Exam Date: 03/18/2023 08:05 Report Date: 03/18/2023 08:52 At the request of: SHAY LORENZO Procedure: US OB incomplete anatomy EXAMINATION: US OB follow up, US OB incomplete anatomy HISTORY: ECHOGENIC FOCI COMPARISON: 02/14/2023 FINDINGS: position: Cephalic presentation, longitudinal lie Heart rate: 140 bpm Amniotic fluid: Subjectively normal Anatomy: Previously identified echogenic cardiac focus is no longer seen US/US OB incomplete anatomy IMPRESSION: Interval resolution of previously identified right ventricular echogenic focus Electronically authenticated by: STORM ROSE Date: 03/18/2023 08:52 Dictated By: Storm Rose M.D. Signed By: 03/18/23 0855 DD/ TD/TT: Asphalt Paver Operator: CHIP Espino for multiple gestation limitedon 65-76-6211YrgHaysi, [place] [address] Ultrasound Report Signed Patient: RAKESH CARDENAS MR#: [id number] : 1995 Acct:[id number] Age/Sex: 27 / F ADM Date: 03/18/23 Loc: CHIP Attending Dr: Shay Lorenzo D.O. Ordering Physician: Shay Lorenzo D.O. Date of Service: 03/18/23 Procedure(s): US OB follow up Accession Number(s): [id number] cc: Shay Lorenzo D.O.; Physician,Non-Staff Venkat [place] [id number] Patient Name: RAKESH CARDENAS MRN: [id number] date: 1995 Sex: F Assigned Patient Location: [facility] Current Patient Location: [facility] Accession/Order Number: [id number] Exam Date: 03/18/2023 08:05 Report Date: 03/18/2023 08:52 At the request of: SHAY LORENZO Procedure: US OB follow up EXAMINATION: US OB follow up, US OB incomplete anatomy HISTORY: ECHOGENIC FOCI COMPARISON: 02/14/2023 FINDINGS: position: Cephalic presentation, longitudinal lie Heart rate: 140 bpm Amniotic fluid: Subjectively normal Anatomy: Previously identified echogenic cardiac focus is no longer seen US/US OB follow up IMPRESSION: Interval resolution of previously identified right ventricular echogenic focus Electronically authenticated by: STORM ROSE Date: 03/18/2023 08:52 Dictated By: Storm Rose M.D. Signed By: 03/18/2355 DD/ TD/TT: Asphalt Paver Operator:TBHRadiology, Radiologist, MD - 03/18/2023 [place] [address] Ultrasound Report Signed Patient: RAKESH CARDENAS MR#: [id number] : 1995 Acct:[id number] Age/Sex: 27 / F ADM Date: 03/18/23 Loc: NOMS Attending Dr: Shay Lorenzo D.O. Ordering Physician: Shay Lorenzo D.O. Date of Service: 03/18/23 Procedure(s): US OB follow up Accession Number(s): [id number] cc: Shay Lorenzo D.O.; Physician,Non-Staff Venkat [facility] [place] [address] Patient Name: RAKESH CARDENAS MRN: [id number] date: 1995 Sex: F Assigned Patient Location: [facility] Current Patient Location: [facility] Accession/Order Number: [id number] Exam Date: 03/18/2023 08:05 Report Date: 03/18/2023 08:52 At the request of: SHAY LORENZO Procedure: US OB follow up EXAMINATION: US OB follow up, US OB incomplete anatomy HISTORY: ECHOGENIC FOCI COMPARISON: 02/14/2023 FINDINGS: position: Cephalic presentation, longitudinal lie Heart rate: 140 bpm Amniotic fluid: Subjectively normal Anatomy: Previously identified echogenic cardiac focus is no longer seen US/US OB follow up IMPRESSION: Interval resolution of previously identified right ventricular echogenic focus Electronically authenticated by: STORM ROSE Date: 03/18/2023 08:52 Dictated By: Storm Rose M.D. Signed By: 03/18/2355 DD/ TD/TT: Asphalt Paver Operator: CHIP EspinoUrinalysis macro (dipstick) panel (U)Ordered By: Minerva Lee on 41-06-8486Lzxbkvvhl, UANegativeNegative - 4(70) +++ mg/dLNOMS Healthcare Work Phone: Blood, UANegativeNegative - 50 Jarrett/mcLNOMS Healthcare Work Phone: Clarity, UAClearNOMS Healthcare Work Phone: Color, UAYellowNOMS Healthcare Work Phone: Glucose, UAPositiveNegative - 2000(110) ++++ mg/dLNOMS Healthcare Work Phone: comment on above:100Interpretation and review of laboratory resultsAbnormalNOMS Healthcare Work Phone: Ketones, UANegativeNegative - 160(16) ++++ mg/dLNOMS Healthcare Work Phone: Leukocytes, UAModerateNegative - 500+++ Brooke/mcLNOMS Healthcare Work Phone: Nitrite, UANegativeNegative - PositiveNOMS Healthcare Work Phone: [phone], UA7.05 - 9[facility] Work Phone: Protein, UANegativeNegative - 2000(20) ++++ mg/dLNOMS Healthcare Work Phone: Spec Grav, UA1.0101 - 1.03[facility] Work Phone: Urobilinogen, UA0.20.2 - 12 mg/dLNOMS Healthcare Work Phone: [facility] Work Phone: No Panel InformationOrdered By: Radiologist Radiology on 87-36-4515[facility] Work Phone: No Panel Informationon 44-65-4064Eycdzvapd Study observation (narrative)CHIP Evans OB ANATOMYon 36-06-4962Qgn[place]i, [place] [address] Ultrasound Report Signed Patient: RAKESH CARDENAS MR#: [id number] : 1995 Acct:[id number] Age/Sex: 27 / F ADM Date: 02/14/23 Loc: US Attending Dr: Shay Lorenzo D.O. Ordering Physician: Shay Lorenzo D.O. Date of Service: 02/14/23 Procedure(s): US OB anatomy Accession Number(s): [id number] cc: Shay Lorenzo D.O.; Physician,Non-Staff Venkat The [place] [address] Patient Name: RAKESH CARDENAS MRN: [id number] date: 1995 Sex: F Assigned Patient Location: US Current Patient Location: Accession/Order Number: [id number] Exam Date: 02/14/2023 17:05 Report Date: 02/15/2023 07:19 At the request of: SHAY LORENZO Procedure: US OB anatomy EXAMINATION: US [...] Lateral ventricles, cerebellum, posterior fossa, nose, lips, orbits, four-chamber heart, RVOT, LVOT, diaphragm, stomach, kidneys, abdominal cord insertion, bladder, umbilical cord arteries, three-vessel [...] 07:19 Dictated By: Storm Rose M.D. Signed By: 02/15/23721 DD/ 8 TD/TT: Asphalt Paver Operator:TBHRadiology, Radiologist, - 02/15/2023 [place] [address] Ultrasound Report Signed Patient: RAKESH CARDENAS MR#: [id number] : 1995 Acct:[id number] Age/Sex: 27 / F ADM Date: 02/14/23 Loc: US Attending Dr: Shay Lorenzo D.O. Ordering Physician: Shay Lorenzo D.O. Date of Service: 02/14/23 Procedure(s): US OB anatomy Accession Number(s): [id number] cc: Shay Lorenzo D.O.; Physician,Non-Staff Venkat The [place] [address] Patient Name: RAKESH CARDENAS MRN: [id number] date: 1995 Sex: F Assigned Patient Location: US Current Patient Location: Accession/Order Number: [id number] Exam Date: 02/14/2023 17:05 Report Date: 02/15/2023 07:19 At the request of: SHAY LORENZO Procedure: US OB anatomy EXAMINATION: US [...] Lateral ventricles, cerebellum, posterior fossa, nose, lips, orbits, four-chamber heart, RVOT, LVOT, diaphragm, stomach, kidneys, abdominal cord insertion, bladder, umbilical cord arteries, three-vessel [...] 07:19 Dictated By: Storm Rose M.D. Signed By: 02/15/2322 DD/ 8 TD/TT: Asphalt Paver Operator: CHIP BENNETT TRANSVAGINALopascale 40-31-[address] [address] Ultrasound Report Signed Patient: RAKESH CARDENAS MR#: [id number] : 1995 Acct:[id number] Age/Sex: 27 / F ADM Date: 02/14/23 Loc: US Attending Dr: Shay Lorenzo D.O. Ordering Physician: Shay Lorenzo D.O. Date of Service: 02/14/23 Procedure(s): US OB transvaginal Accession Number(s): [id number] cc: Shay Lorenzo D.O.; Physician,Non-Staff Venkat [place] [address] Patient Name: RAKESH CARDENAS MRN: [facility]:[id number] date: 1995 Sex: F Assigned Patient Location: US Current Patient Location: Accession/Order Number: [id number] Exam Date: 02/14/2023 17:05 Report Date: 02/15/2023 07:19 At the request of: SHAY LORENZO Procedure: US OB transvaginal EXAMINATION: US [...] Lateral ventricles, cerebellum, posterior fossa, nose, lips, orbits, four-chamber heart, RVOT, LVOT, diaphragm, stomach, kidneys, abdominal cord insertion, bladder, umbilical cord arteries, three-vessel [...] 07:19 Dictated By: Storm Rose M.D. Signed By: 02/15/23721 DD/ 8 TD/TT: Asphalt Paver Operator:TBHRadiology, Radiologist, MD - 04/17/2023 [place] [address] Ultrasound Report Signed Patient: RAKESH CARDENAS MR#: [id number] : 1995 Acct:[id number] Age/Sex: 27 / F ADM Date: 02/14/23 Loc: US Attending Dr: Shay Lorenzo D.O. Ordering Physician: Shay Lorenzo D.O. Date of Service: 02/14/23 Procedure(s): US OB transvaginal Accession Number(s): [id number] cc: Shay Lorenzo D.O.; Physician,Non-Staff [facility] [place] [address] Patient Name: RAKESH CARDENAS MRN: [id number] date: 1995 Sex: F Assigned Patient Location: US Current Patient Location: Accession/Order Number: [id number] Exam Date: 02/14/2023 17:05 Report Date: 02/15/2023 07:19 At the request of: SHAY LORENZO Procedure: US OB transvaginal EXAMINATION: US [...] Lateral ventricles, cerebellum, posterior fossa, nose, lips, orbits, four-chamber heart, RVOT, LVOT, diaphragm, stomach, kidneys, abdominal cord insertion, bladder, umbilical cord arteries, three-vessel [...] 07:19 Dictated By: Storm Rose M.D. Signed By: 02/15/23721 DD/ 8 TD/TT: Asphalt Paver Operator: CHIP Evans OB TRANSVAGINALopascale [id number], [place] [address] Ultrasound Report Signed Patient: Rakesh Cardenas MR#: [id number] : 1995 Acct:[id number] Age/Sex: 27 / F ADM Date: 11/16/22 Loc: US Attending Dr: Shay Lorenzo D.O. Ordering Physician: Shay Lorenzo D.O. Date of Service: 11/16/22 Procedure(s): US OB transvaginal Accession Number(s): [id number] cc: Shay Lorenzo D.O.; Physician,Non-Staff [facility] [place] [address] Patient Name: RAKESH CARDENAS MRN: [id number] date: 1995 Sex: F Assigned Patient Location: US Current Patient Location: Accession/Order Number: [id number] Exam Date: 11/16/2022 10:08 Report Date: 11/17/2022 22:05 At the request of: SHAY LORENZO Procedure: US OB transvaginal EXAMINATION: US OB transvaginal HISTORY: MISSED MENSES COMPARISON: No relevant comparison available. FINDINGS: GESTATIONAL SAC: Present and normal appearing. YOLK SAC: Present and normal appearing. POLE: Present and normal appearing. CARDIAC: Present. UTERUS: Normal size and appearance. OVARIES: Right: Normal. Left: Contains a 2.7 cm hypoechoic area, likely corpus luteal cyst. CERVIX: 4.1 cm in length and closed. CUL-DE-SAC: Normal. OTHER: None. AGE BY LMP: 8 weeks 5 days RAKEL BY LMP: 06/23/2023 AGE BY US CRL: 8 weeks 0 days RAKEL BY US CRL: 06/28/2023 US/US OB transvaginal IMPRESSION: 1. Single live intrauterine . Electronically authenticated by: BRITTANIE RODRIGUEZ Date: 11/17/2022 22:05 Dictated By: Brittanie Rodriguez M.D. Signed By: 11/17/222206 DD/ 04 TD/TT: Asphalt Paver Operator:[facility], Radiologist, - 11/17/2022 [place] [address] Ultrasound Report Signed Patient: Rakesh Cardenas MR#: [id number] : 1995 Acct:[id number] Age/Sex: 27 / F ADM Date: 11/16/22 Loc: US Attending Dr: Shay Lorenzo D.O. Ordering Physician: Shay Lorenzo D.O. Date of Service: 11/16/22 Procedure(s): US OB transvaginal Accession Number(s): [id number] cc: Shay Lorenzo D.O.; Physician,Non-Staff [facility] [place] [address] Patient Name: RAKESH CARDENAS MRN: [id number] date: 1995 Sex: F Assigned Patient Location: Current Patient Location: Accession/Order Number: [id number] Exam Date: 11/16/2022 10:08 Report Date: 11/17/2022 22:05 At the request of: SHAY LORENZO Procedure: US OB transvaginal EXAMINATION: US OB transvaginal HISTORY: MISSED MENSES COMPARISON: No relevant comparison available. FINDINGS: GESTATIONAL SAC: Present and normal appearing. YOLK SAC: Present and normal appearing. POLE: Present and normal appearing. CARDIAC: Present. UTERUS: Normal size and appearance. OVARIES: Right: Normal. Left: Contains a 2.7 cm hypoechoic area, likely corpus luteal cyst. CERVIX: 4.1 cm in length and closed. CUL-DE-SAC: Normal. OTHER: None. AGE BY LMP: 8 weeks 5 days RAKEL BY LMP: 06/23/2023 AGE BY US CRL: 8 weeks 0 days RAKEL BY US CRL: 06/28/2023 US/US OB transvaginal IMPRESSION: 1. Single live intrauterine . Electronically authenticated by: BRITTANIE RODRIGUEZ Date: 11/17/2022 22:05 Dictated By: Brittanie Rodriguez M.D. Signed By: 11/17/222206 DD/ 04 TD/TT: Asphalt Paver Operator: CHIP HealthcareRadiology Study observation (narrative)CHIP HealthcareUS OB TRANSVAGINALOrdered By: Radiologist Radiology on [id number] Work Phone: PAP ACOG PANEL 2: 21 to 29on 05-21-2022..NormalThe [facility] HospitalComment on above:Performed By: #### [id number] #### [facility] [address] [place] [address] Dr. Jewels Lockwood Gdln ACOG [id number] Clinic South Pointe HospitalComment on above:Performed By: #### [id number] #### [facility] [address] [place] [address] Dr. Jewels LooneyDIAGNOSIS:CommentMansfield Hospital on above: Result Comment: NEGATIVE FOR INTRAEPITHELIAL LESION OR MALIGNANCY.Performed By: #### [id number] #### [facility] [address] [place] [address] Dr. Jewels LooneyMethodology:CommentMansfield Hospital on above: Result Comment: This liquid based ThinPrep(R) pap test was screened with the use of an image guided system.Performed By: #### [id number] #### [place] [address] Dr. Jewels LooneyNote:CommentMansfield Hospital on above:Result Comment: The Pap smear is a screening test designed to aid in the detection of premalignant and malignant conditions of the uterine cervix. It is not a diagnostic procedure and should not be used as the sole means of detecting cervical cancer. Both false-positive and false-negative reports do occur. .Performed By: #### [id number] #### [place] [address] Dr. Jewels LooneyPerformed by:CommentMansfield Hospital on above: Result Comment: Anna Haines, Boat Worker (ASCP)Performed By: #### [id number] #### [place] [address] Dr[address] Jewels LooneyReflex Criteria:CommentMansfield Hospital on above:Result Comment: The HPV DNA reflex criteria were not met with this specimen result therefore, no HPV testing was performed. .Performed By: #### [id number] #### [place] [address] Dr. Jewels LooneySpecimepascale adequacy:[facility] on above:Result Comment: Satisfactory for evaluation. Endocervical and/or squamous metaplastic cells (endocervical component) are present.Performed By: #### [id number] #### [place] [address] Dr. Jewels Eduardo [id number] Visit (AGEXPHUD) [facility] ([id number]) 1995 FDate Time Provider Aizgbjyohq50/22/17 2:30 PM FANNY GROSS (SHAN) AGEXLEONOR During your visit today, we recorded the following information about you: Temperature Pulse Blood pressure Weight 98.4 degrees 79/minute 125/75 69.5 kg Height 1.727 Serenity reynolds CNP 01/02/2017 2:46 PM SignedPatient is a 21 year old female presenting with sinus complaint. The history isprovided by the patient.Sinus ProblemThis is a new problem. The current episode started 1 to 4 weeks ago (2 weeksago had a cold, congestion, cough, muffled ears, sore throat. Symptomshavemainly resolved, but presents today with increased sinus pressure.). Theproblem occurs constantl y. The problem has been gradually worsening. Associatedsymptoms include congestion, coughing and headaches (frontal sinus pressure).Pertinent negatives include no abdominal pain, chest pain, chills, fever,nausea, rash, sore throat or vomiting. Treatments tried: Mucinex for 7 days.The treatment provided no relief.Review of SystemsConstitutional: Negative for chills, fever and malaise/fatigue.HENT:Positive for congestion. Negative for ear pain and sore throat.Eyes: Negative.Respiratory: Positivefor cough. Negative for shortness of breath and wheezing.Cardiovascular: Negative for chest pain and palpitations.Gastrointestinal: Negative for abdominal pain, diarrhea, nausea and vomiting.Skin: Negative for rash.Neurological: Positive for headaches (frontal sinus pressure).Physical ExamConstitutional: She is oriented to person, place, and time and well-developed,well-nourished, and in no distress. Vital signs are normal.HENT:Head: Normocephalic and atraumatic.Right Ear: Hearing, external ear and ear canal normal. A middle ear effusion ispresent.Left Ear: Hearing, external ear and ear canalnormal. A middle ear effusion ispresent.Nose: Right sinus exhibits frontal sinus tenderness. Right sinus exhibits nomaxillary sinus tenderness. Left sinus exhibits frontal sinus tenderness. Leftsinusexhibits no maxillary sinus tenderness.Mouth/Throat: Uvula is midline, oropharynx is clear and moist and mucousmembranes are normal. No oropharyngeal exudate, posterior oropharyngeal edema,posterior oropharyngeal erythema or tonsillar abscesses.Eyes: Conjunctivae, EOM and lids are normal. Pupils are equal, round, andreactive to light. Right eye exhibits no discharge. Left eye exhibits nodischarge.Cardiovascular: Normal rate, regular rhythm, S1 normal, S2 [...] stable condition after questions answered and patientverbalizes understandingASSESSMENT/PLAN:1. Acute non-recurrent frontal sinusitis - ICD9: 461.1, ICD10: J01.10- Will begin treatment with as per antibiotic as written, see orders- The patient should also be given OTC decongestantsprn, OTC cough and coldmeds as needed, warm [...] Past Social History.-Patient education provided today.-Discussed with patientmedications that are indicated and how to use themedications and what the potential side effects are.- Follow up with PCP in 2-3 days if symptoms progress- Report to ED with any worsening symptoms or life-threatening concerns- Warning signs of worsening condition explained to patient- Patient left in stable condition after questions answered and patientverbalizes understandingASSESSMENT/PLAN:1. Acute non-recurrent frontal sinusitis - ICD9: 461.1, ICD10: J01.10- Will begin treatment with as per a ntibiotic as written, see orders- The patient should also be given OTC decongestants prn, OTC coughand coldmeds as needed, warm salt water gargles, [...] condition that can cause a stuffy nose,pain inthe face, and yellow or green discharge (mucus) [...] bendsforward.People with sinusitis can also have other sym ptoms that include:?Fever?Cough?Trouble smelling?Ear pressure or fullness?Headache?Bad breath?Feeling tiredMost of [...] Yes. To reduce yoursymptoms, you can:?Take an dqaf-bwf-bcmzfdt pain reliever to reduce the pain?Rinse your nose and sinuses with salt water a few times a day ? Ask yourdoctor or nurse about the best way to do this.? Increase fluids to keep mucus thin. Drink a glass of water every waking hour.? Breathe moist air from a humidifier or hot shower.? Avoid exposure to smoke.Antihistamines do not improve symptomsof sinusitis. Common antihistaminesinclude diphenhydramine (sample brand name: [...] with antibiotic medicines. This is because most sinusitisis caused byviruses ? not bacteria ? and antibiotics do not kill viruses. Many people getover sinusinfections without antibiotics.Some people with sinusitis do need [...] allergies that cause theirsymptoms.Chronic sinusitis can be treatedin different ways. If you have chronicsinusitis, talk with your doctorThis topic retrieved from UpTo DatePatient education: Rinsing out your nose with salt water (The Basics)Why should I rinse my nosewith salt water? ? Rinsing out your nose with saltwater can wash dirt and mucus from your nose. It also helps wash away thingsthat trigger allergies, such as pollen, mold spores, and dust.Rinsing outyour nose with salt water is also called [...] I make the salt water? ? To m robert the salt water solution, follow thesesteps:1) Find [...] which is very pure anddissolves easily. Do notuse regular table salt because it contains otherchemicals besides salt.3) Mix and store at room temp erature for up to 1 week. Throw out any salt waterthat you don?t use within a week.How do I get thesolution inside my nose? ? There are several [...] putyour used syringe back into the storage container.If you like, you can warmthe solution slightly in the microwave. This might make the rinsing processmore comfortable. But be sure that the solution is NOT HOT.Bend over the sink with your head turnedslightly to one side and squirt thesolution into the nostril that is higher. You can also do this in the shower.Aim the stream toward the back of your head, NOT the top of your head. Keepyour mouth op en. The solution should flow into one nostril [...] sinuses, you can bendforward and look upwards towardone side, as if you are ?looking under [...] recommend daily rinsing for people with sinusitis thatlasts more than3 months (called ?chronic sinusitis?.)If you use nasal sprays to treat your symptoms, use them after your rinse outyour nose.This topic retrieved from UpToDateReferring Provider: SELF [200]Allergies As of Date: 01/02/2017 Noted Allergy ReactionSULFA (SULFONAMIDE ANTIBIOTICS) 11/12/2016 4 - HivesDate Reviewed: 01/02/2017Reviewed by: Fanny ([facility]) Renato - Fully AssessedReason for Visit: Sinus Problem [99] Cmt: patient c/o sinus issues x 3 weeks, coughing up green mucus, sinus pressure, headaches. swollen glands in back of throat.Reason For Visit History RecordedPrimary Visit Anne Marie gnosis:Acute non-recurrent frontal sinusitis [J01.10]Order(s):amoxicillin- clavulanic acid (AUGMENTIN) 875-125 mg per tabletTake 1 tablet by mouth every 12 hours for 10 days.Disp: 20 tabletRfl: 0Prescriptions as of 01/02/2017 Sig: AMOXICILLIN 875 MG-POTASSIUM * Take 1 tablet by mouth every * LIDOCAINE 2 % MUCOSAL SOLUTION Take 5 mL by mouth four times*Medication notes this encounter LIDOCAINE 2 % MUCOSAL SOLUTION >> Yi Ochoa CMA 01/02/2017 2:25 PM >> YI OCHOA CMA Wed Jan 02, 2017 2:25 PM [...] side effects are. - Follow up with PCPin 2-3 days if symptoms progress - Report to ED with any worsening symptoms or life-threatening concerns - Warning signs of worsening condition explained to patient - Patient left in stable conditionafter questions answered and patient verbalizes understanding ASSESSMENT/PLAN: [...] if symptoms persist or worsen. - AMOXICILLIN 875MG-POTASSIUM CLAVULANATE 125 MG TABLET Fanny Gross, SENIOR ORACLE APPLICATIONS DEVELOPER Patient education: Sinusitis in adults (The Basics) What is sinusitis? ? Sinusitis is a condition that can cause a stuffy nose, pain in the face, and yellow or green discharge (mucus) from the nose. The sinuses are hollow areas in the bones of the face. They have a thin lining that normally makes a small amount of mucus. When this lininggets infected, it swells and makes extra mucus. [...] reduce your symptoms, you can: ?Take an urnm-kjn-etuoubr pain reliever to reduce the pain ?Rinse your nose and sinuses with salt water a few times a day ? Ask your doctor or nurse about the best way to do this. ? Increase fluids to keep mucus thin. Drink a glass of waterevery waking hour. ? Breathe moist air from [...] recommend that you wait 1 more week tosee if your symptoms improve. But if you [...] have a different type of sinusitis called chronicsinusitis. Chronic sinusitis can be caused by different things. For example, some people have growths in their nose or sinuses that are called polyps. Other people have allergies that cause their symptoms. Chronic sinusitis can be treated in different ways. If you have chronic sinusitis, talk with your doctor This topic retrieved from [facility] Patient education: Rinsing out your nose with saltwater (The Basics) Why should I rinse my [...] drip ? This happens when mucus from yournose drips down the back of your throat. [...] 1 to 1.5 teaspoons of salt. Use picklingor prabha salt, which is very pure and [...] Rinse) ?A neti pot (sample brand name: Lfo Med NasaFlo Neti Pot) ? This is a small pot with a long spout, similar to a teapot . ?A nasal irrigation syringe (sample brand name: Nasaline) ? Use a 60 cc (2 ounce) syringe, not a bulb syringe for a baby. ?A pulsating irrigation device (sample brand names: Grossan HydroPulse, WaterImaxio Sinusense Water Pulsator) ? These are battery-powered [...] into the storage container. If you like, youcan warm the solution slightly in the microwave. [...] you rinse out your nose. This usually goesaway after you get used to it. Once all the solution has run out of your nose, blow your nose gently. Some salt water might drain out of your nose over the next few minutes if you bend over. If some salt water seems to get trapped up in your sinuses, you can bend forward and look upwards toward oneside, as if you are ?looking under the [...] you use nasal sprays to treat your sym ptoms, use them after your rinse out your nose. This topic retrieved from UpToDatePrescriptions ordered this encounter Disp Refills Start End AMOXICILLIN 875 MG-POTASSIUM CLAVULA* 20 t* 0 01/02/2017 01/12/2017 Route: ORAL Sig: Take 1 tablet by mouth every 12 hours for 10 days.Disposition: Return ifsymptoms worsen or fail to improve.Follow-up and Disposition History RecordedEncounter Number: [id number] Status:Closed by FANNY GROSS CNP on 01/02/17[facility] CenterPROGRESSon [id number] ID: [id number]: Fanny Banks) Arleyervice: (none)Author Type: Nurse PractitionerType: Hakeem diaz NotesFiled: 01/02/2017 2:46 PMNote Text:Patient is a [...] vomiting.Treatments tried: Mucinex for 7 days. The manuel tment provided no relief.Review of SystemsConstitutional: Negative for chills, fever and malaise/fatigue.HENT: Positive for congestion. Negative for ear pain and sore throat.Eyes: Negative.Respiratory: Positive for cough. Negative for shortness of breath andwheezing.Cardiovascular: Negative for chest pain and palpitations.Gastrointestinal: Negative for abdominal pain, diarrhea, nausea andvomiting.Skin: Negative for rash.Neurological: Positive for headaches (frontal sinus pressure).Physical ExamConstitutional: She is oriented to person, place, and time andwell-developed, well-nourished, and inno distress. Vital signs arenormal.HENT:Head: Normocephalic and atraumatic.Right [...] abscesses.Eyes: Conjunctivae, EOM and lids are normal. Pu pils are equal, round, andreactive to light. Right eye exhibits no discharge. Left eye exhibits nodischarge.Cardiovascular: Normal rate, regular rhythm, S1 normal, S2 [...] submental, no submandibular, no tonsillar, nopreauricular and noposterior auricular adenopathy present. She has no cervical [...] how to use themedications and what the potentialside effects are.- Follow up with PCP in 2-3 days if symptoms progress- Report to ED with any worsening symptoms or life-threatening concerns- Warning signs of worsening condition explained to patient- Patient left in stable condition after questions answered and patientverbalizes understandingASSESSMENT/PLAN:1. Acute non-recurrent frontal sinusitis - ICD9: 461.1, ICD10: J01.10- Will begin treatment with as per antibiotic as written, see orders- The patient should also be given OTC decongestants prn, OTC cough andcold meds as needed, warm salt water gargles, throat lozenges and/or OTCthroat spray as needed and nasal saline gtts and suction prn for the first5-7 days of treatment.- Supportivecare with plenty of fluids, rest, and analgesia prn.- Follow up in 3-5 days if symptoms persist or w orsen.- AMOXICILLIN 875 MG-POTASSIUM CLAVULANATE 125 MG TABLETFanny Gross CNPNorthern Light Sebasticook [facility] [id number] Visit (AGEXPHUD) CLAUSRAKESH TEE ([id number]) 1995 FDate Time Provider Dugeydfezn01/2/17 8:15 AM FANNY GROSS (SHAN) AGEXPHDANAY During your visit today, we recorded [...] 2-3 days if symptoms progress- Report to EDwith any worsening symptoms or life-threatening concerns- Warning signs of worsening condition explained to patient- Patient left in stable condition after questions answered and patientverbalizes understandingASSESSMENT/PLAN:1. URI, acute - ICD9: 465.9, ICD10: J06.9 [...] Follow up in 3-5 days if symptoms persistor sooner if worsening of symptoms2. Sore throat [...] % MUCOSAL SOLUTION3. Cough - ICD9: 786.2, ICD10:R05- OCT cough drops/meds4. Laryngitis, acute - ICD9: [...] Even so, having a coldcan be uncomfortable. An d if your child has a cold, it can be hard to know whenthe symptoms call for a trip to the doctor.What are the symptoms of the common cold? ? The symptoms include:?Sneezing?Coughing?Sniffling and runny nose?Sore throat?Chest congestionIn children, the [...] doctor or nurse any timeyou get a long-lastingcough.Take your child to the emergency room if [...] too much acetaminophen, the drug can damageyour liver.Also, if you have a heart condition, or you take prescriptionmedicines, ask your pharmacist if it is safe to take the cold medicine you havein mind.What should I know if my child has a cold? ? In chil dren, the common cold isoften more severe than it is in adults. It also lasts longer. Plus, childrenoften get a fever during the first 3 days of a cold.Are cough and cold medicines safe for children?? If your child is younger than6, you [...] dose.How long will I be sick? ? Coldsusually last 3 to 7 days in adults [...] it's so important to clean your hands often.Thistopic retrieved from UpToDateWhat is laryngitis? ? Laryngitis is the medical term for when your vocal cordsare inflamed. Laryngitis usually causes your voice to sound hoarse and can evenmake you loseyour voice completely.What causes laryngitis? ? Laryngitis can be caused by:?The common cold and other infections that affect the throat?Shouting or straining your voice too much?Breathing in harsh chemicals, such as continuity person or gasoline?Drinking too much alcohol or smoking a lot?Acid reflux, whichis when the acid from your stomach leaks [...] too much, giveyour voice a rest. If youare a day or need to use your [...] If you work near chemical fumes thatare makingyou hoarse, speak with your employer about getting masks orventilation fans.?If your laryngitis wascaused by acid reflux, take steps to avoid acid reflux.For example:-Take medicines for acid reflux,if your doctor recommends them.-Avoid foods that make your symptoms worse. (Common examples includealcohol,coffee, and chocolate.)-Stop smoking, if you smoke.-Eat many small meals each day, rather than 2 or 3 big meals.-Do not lie down for at least 3 hours after finishing a meal.Should I see a doctor or nurse? ? That depends on how long your symptoms lastand whether you have symptoms besides hoar seness.Most people with laryngitis get better on their [...] swelling of the neck or tongue?Cannot move yourneck or have trouble opening your mouthWill I need tests? ? Maybe. If your doctor or nurse is not french re what is causingyour symptoms, you might need tests. For example, you might have alaryngoscopy, which is when the doctor puts a tube with a tiny camera down yourthroat to look at your voice box.Howis laryngitis treated? ? That depends on what is causing it. If yourlaryngitis is caused by a cold or other minor infection, you might not needtreatment. If you do not get better in 2 weeks, there might be something elsecausing your hoarseness. Other causes of laryngitis are treated on spaor-fg-jldn basis.-Voice rest is used for acute laryngitis, vocal fold hemorrhage, and otherconditions where there is acute laryngeal edema and swelling. During voicerest, patients refrain from abusive vocal behaviors to prevent further damageto the vocal folds from fibrosis and scarring. Duration ranges fromone week toseveral weeks depending on the problem and balancing other issues such aspatient needingto use their voice for work.What if my [...] throat or sinus pressure, progressed to cough, lostvoicepast 3 days). The problem occurs constantly. The [...] wheezing andstridor.Cardiovascular: Negative for chest pain and p alpitations.Gastrointestinal: Negative for abdominal pain, constipation, diarrhea, nauseaand vomiting.Musculoskeletal: Negative for neck pain.Skin: Negative for rash.Neurological: Positive for headaches (Sinus pressure, entirely resolved 2days).Physical ExamConstitutional: She is oriented to person, place, and time and well-developed,well-nourished, and in no distress. Vital signs are [...] eye exhibits no discharge. Left eye exhibits nodischarge.Cardiovascular: Normal rate, regular rhythm, S1 normal, S2 [...] No submental, no submandibular, no tonsillar, nopreauricular andno posterior auricular adenopathy present. She has no cervical adenopathy.Neurological: She is oriented to person, place, and time.Skin: Skin is warm, dry and intact.Psychiatric: Mood, memory, affectand judgment normal.Nursing note and vitals reviewed.BP 131/88 [...] stable condition after questions answered and patientverbalizes understandingASSESSMENT/PLAN:1. URI, acute - ICD9: 465.9, ICD10: J06.9 [...] ICD9: 464.00, ICD10: J04.0- Written educational material kathy Gross CNPReferring Provider: SELF [200]Allergies As of Date: 11/12/2016 Noted Allergy ReactionSULFA (SULFONAMIDE ANTIBIOTICS) 11/12/2016 4 - HivesDate Reviewed: 11/12/2016Reviewed by: Fanny ([facility]) Renato - Fully AssessedReason for Visit: Sore Throat [200] Cmt: Patient started experiencing a sore throat about a week ago, it progressed into a productive cough and nasal/chest congestion. She went to the doctor for a physical on Saturday, they discussed her symptoms but no treatment.Has been treating with Sudafed, last dose was a few days ago, no relief. Cough [28] New Patient [172]Reason For Visit History RecordedPrimary Visit Diagnosis:URI, acute [J06.9] Other Visit Diagnoses:Sore throat [J02.9] Cough [R05] Laryngitis, acute [J04.0]Order(s):ALERE STREP A TEST (AG) [1023507] Order #: [id number] THROAT CULTURE [SQTHRCUL] Order #: [id number] FUTURE lidocaine viscous (LIDOCAINE VISCOUS) 2 % solutionTake 5 mL by mouth four times daily as needed for Pain (swish and spit, do NOT swallow).Disp: 100 mLRfl: 0Prescriptions as of 11/12/2016 Sig: LIDOCAINE 2 % MUCOSAL SOLUTION Take5 mL by mouth four times*Problem List As [...] prn, OTC cough and cold meds as nee ded, warm salt water gargles, throat lozenges and/or [...] a trip to the doctor. What are thesymptoms of the common cold? ? The symptoms [...] pain when you cough, trouble breathing, or coughingup blood If you are older than 75, [...] you can get without a prescription. These medicin es might help with your symptoms. But they [...] you have in mind. What should I knowif my child has a cold? ? In [...] cause a life-threatening condition called Ngozi syndrome. Whengiving your child acetaminophen or other nonprescription medicines, [...] wash your hands often with soap and water.Alcohol hand rubs work well, too. The germs [...] much ?Breathing in harsh chemicals, such as continuity person or gasoline ?Drinking too much alcohol or [...] box (such as spasmodic dysphonia)?Cancer of the throat Is there anything I [...] fans. ?If your laryngitis was caused by acidreflux, take steps to avoid acid reflux. For [...] ?You have a fever of at least 101?For 38.4?C ?Your throat pain is severe or [...] causes of laryngitis are treated on a cwgb-po-imjb basis. -Voice rest is used for acute [...] because of acid reflux, or because they st rain their voice too much. But in children, [...] to do for your baby. Retrieved from Kranem ordered this encounter Disp Refills Start End LIDOCAINE 2 % MUCOSAL SOLUTION 100 * 0 11/12/2016 Route: ORAL Sig: Take 5 mL by mouth four times daily as needed for Pain (swish and spit, do NOT swallow).Disposition: Return if symptoms worsen or fail to improve.Follow-up and Disposition History RecordedEncounter Number: [id number] Status:Closed by FANNY GROSS CNP on 11/12/16[facility] [id number] ID: [id number]: Fanny CardosoShan) Arleyervice: (none)Author Type: Nurse PractitionerType: Progress NotesFiled: 11/12/2016 9:12 AMNote Text:Patient is a 21 year old female presenting with sorethroat and cough. Thehistory is provided by the patient.Sore ThroatThis is a new problem. The current episode started in the past 7 days(started last Saturday). The problem has been unchanged. Neither side ofthroat is experiencing more pain than the other. There has been no fever.The pain is at a severity of 5/10. The pain is mild. Associated symptomsinclude congestion, coughing, headaches (Sinus pr essure, entirely resolved2 days) and a hoarse voice (x 3 days). Pertinent negatives include noabdominal pain, diarrhea, ear discharge, ear pain, plugged ear sensation,neck pain, shortness of breath, stridor, swollen glands, troubleswallowing or vomiting. She has had no exposure to strep. Treatmentst ried: Sudafed one time only, and ibuprofen. The [...] Positive for congestion, hoarse voice (x 3 days),rhinorrhea andsore throat. Negative for ear discharge, ear pain and trouble swallowing.Eyes: Negativ e.Respiratory: Positive for cough. Negative for shortness of breath,wheezing and stridor.Cardiovascular: Negative for chest pain and palpitations.Gastrointestinal: Negative for abdominal pain, constipation, diarrhea,nausea and [...] equal, round, andreactive to light. Right eye exhibitsno discharge. Left eye exhibits nodischarge.Cardiovascular: Normal rate, regular rhythm, S1 normal,S2 normal andnormal heart sounds. Exam reveals no gallop and no friction rub.No murmur heard.Pulmonary/Chest: Effort normal and breath sounds normal. She has nowheezes. She has no rhonchi. She has no rales.Lymphadenopathy: Head (right side): No submental, no submandibular, no tonsillar, nopreauricular and no posterior auricular adenopathy present. Head (left side): No submental, no submandibular,no tonsillar, nopreauricular and no posterior auricular adenopathy present. She has no cervical adal opathy.Neurological: She is oriented to person, place, and [...] FamilyMedical History, Past Social History.-Patient education provided today.- Discussed with patient medications that are indicated and how to use the medications and what the potential side effects are.- Follow up with PCP in 2-3 days if symptoms progress- Report to ED with any worsening symptoms or life- threatening concerns- Warning signs of worsening condition explained to patient- Patient left in stable condition after questions answered and patientverbalizes understandingASSESSMENT/PLAN:1. URI, acute - ICD9: 465.9, ICD10: J06.9 [...] and suction prn.- Follow up in 3-5 daysif symptoms persist or sooner if worsening ofsymptoms2. Sore throat - ICD9: 462, ICD10: J02.9- suspect viral- Rapid Strep negative in the office today and Throat culture pending- Discussed supportivecare treatment with fluids, rest and analgesia.- The [...] J04.0- Written educational material givenFanny Gross CNP [facility] CenterThroat Cultureon 40-75-8540Tbvpdd CultureTest performed at [facility] No group A beta streptococci cultured.[facility] SystemComment on above:Performed By: #### CTHRT ####[facility] [place], [place] [address] Vital Signs Date TimeVital SignValuePerforming KumtshtipFbmyluea26-27-9978 09:17-0500Body .7 cmVanessa Pichardo AUDITING CODER Work Phone: [facility] HospitalUaroznxnvz79-06-2417 09:17-0500Body mass index (BMI) [Ratio]31.63 kg/l2RhofrecmVanessa Pichardo NP Work Phone: [facility] HospitalPasrcnxvcm52-58-8698 09:17-0500Body rocuem89.35 kgVanessa Pichardo AUDITING CODER Work Phone: [phone]-[facility] HospitalOplxvcfxtp42-51-4613 09:17-0500Diastolic blood bkyimgen90 mm[Hg]Vanessa Pichardo AUDITING CODER Work Phone: [facility] HospitalVxkfguczpo81-72-8253 09:17-0500Systolic blood psunnxje081 mm[Hg]Vanessa Pichardo AUDITING CODER Work Phone: [facility] HospitalKfccgefojp73-23-7868 13:36-0500Blood Pressure LocationAlana Chengell [phone]-AozmaUpper Valley Medical Center [facility] Zhaq01-60-0485 13:36-0500Body vcydodhhwqh97.6 [degF]Alana Keith [phone]-QlsjqUpper [facility] Center [facility] Pkte75-88-0242 13:36-0500Diastolic blood kgqpylxg64 mm[Hg]Alana Parker [phone]-LktgmUpper Valley Medical Center [facility]ient Yfcb86-06-0337 13:36-0500Heart wzat089 /minAlana Parker [phone]-MrylqUpper Valley Medical Center [facility] Kzjk76-38-0790 13:36-5926WeR7% (BldA) [Mass fraction]96 %Alana Parker [phone]-KdiqpSouthwest General Health Center02-05-2025 13:36-0500Systolic blood mtujrliv703 mm[Hg]Alana Parker [phone]-UtozcSouthwest General Health Center09-23-2024 09:41-0400Body mass index (BMI) [Ratio]33.12 kg/w2Mgaoq Bj DO Work Phone: [facility] HospitalTtuxlkpmtf36-22-2738 09:41-0400Body skyosc69.79 kgCorey Bj DO Work Phone: [facility] HospitalSmsgphvxjz01-61-3449 09:41-0400Diastolic blood formnjnk77 mm[Hg]Shay Bj DO Work Phone: [facility] HospitalXnxveggnum89-79-1439 09:41-0400Systolic blood bktovhol472 mm[Hg]Shay Bj DO Work Phone: [phone] [place], [place] [address]Ofazxtoqzk32-97-4062 09:31-0500Body mass index (BMI) [Ratio]31.17 kg/l9Vfzzt Bj DO Work Phone: [phone] [place], [place] [address]Sstwfcxasx52-54-9692 09:31-0500Body .99 kgCorey Bj DO Work Phone: [phone]-[facility] HospitalLkgzjhpipg88-88-8687 09:31-0500Diastolic blood mm[Hg]Shay Bj DO Work Phone: [phone]02-01-2024 09:31-0500Systolic blood ponsqogn606 mm[Hg]Shay Bj DO Work Phone: [facility] HospitalXoubayyfbb58-07-6903 13:47-0500Blood Pressure LocationPremami Moura [phone]-JadlnClermont County Hospital 12-26-2021 13:47-0500Body wowwghvpmqz28.8 [degF]Hayesmami Moura [phone]-HdokhClermont County Hospital 12-26-2021 13:47-0500Diastolic blood iapshjoi82 mm[Hg]Hayes Gudimella [phone]-HdcsyClermont County Hospital 12-26-2021 13:47-0500Heart rate67 /minPreet Gudimella [phone]-UniwiClermont County Hospital 12-26-2021 13:47-0500Respiratory rate16 /minPreet Gudimella [phone]-UvwkcClermont County Hospital 12-26-2021 13:47-1595GiS5% (BldA) [Mass fraction]98 %Hayes Gudimella [phone]-AyznnClermont County Hospital 12-26-2021 13:47-0500Systolic blood fcpoyakw834 mm[Hg]Hayes Gudimella [phone]-FizysClermont County Hospital Encounters Encounter DateEncounter TypeCare ProviderFacilityStart: 12-16-2024 End: 13-26-8569Geofpq flowsAnand Pichardo AUDITING CODER Work Phone: noMS Paul OBGYNStart: 12-16-2024 End: 73-66-2924Weciuf flowsAnand Pichardo AUDITING CODER Work Phone: noMS Paul OBGYNStart: 12-16-2024 End: 68-35-9420Fbyywcb encounter procedureVanessa Pichardo AUDITING CODER Work Phone: [facility] HealthcareStart: 12-16-2024 End: 58-73-6821Ymzvxbhf preventive med est patient 18-39 yrsVanessa Pichardo AUDITING CODER Work Phone: [facility] Paul OBGYNComment on above:Well woman exam with routine gynecological examStart: 07-13-2024 End: 71-53-3830Wnajlraqp department patient visitJohn ParenteFacility:FTMCStart: 03-18-2024 End: 28-58-9538ehwxdhxnhhQLK Alana ParkerFacility:CC NorwalkStart: 03-18-2024 End: 20-66-0549Dykfuni encounter procedureAlana Parker [phone]-NsymkUpper Valley Medical Center [facility]ven[facility] Care Start: 11-04-2023 End: 62-34-4672Gpfzyy flowsheetCorey Bj DO Work Phone: noms BCP OBStart: 11-04-2023 End: 95-32-1397Sjnkvw flowsheetCorey Bj DO Work Phone: noms BCP OBStart: 11-04-2023 End: 97-89-6732Tdtdxhqkg Result EncounterCorey Bj DO Work Phone: noms External Department UnsolicitedStart: 11-04-2023 End: 38-93-5188psclacnvvaACLSA FAZIONot AvailableStart: 11-04-2023 End: 62-42-3567Efkcktr encounter procedureCorey Bj DO Work Phone: [facility] Work Phone: Start: 11-04-2023 End: 42-32-8537Yndbplgq preventive med est patient 18-39 yrsCorey Bj DO Work Phone: noms [facility] OBComment on above:Well woman exam with routine gynecological examStart: 08-05-2023 End: 86-97-7688qpfvepfvhcWZFKW FAZIONot AvailableStart: 06-26-2023 End: 16-66-8432zzmxiyeqeoUTY RAMEYNot AvailableStart: 06-19-2023 End: 03-27-3647xmkrbpihfqCMMEX FAZIONot AvailableStart: 06-12-2023 End: 42-05-3762Cnylhfefw Result EncounterCorey Bj DO Work Phone: noms External Department UnsolicitedStart: 06-12-2023 End: 86-13-2088Mgmnvoiiw Result EncounterCorey Bj DO Work Phone: noms External Department UnsolicitedStart: 06-12-2023 End: 71-43-1458basuevlpnhXIPIA FAZIONot AvailableStart: 06-05-2023 End: 30-06-8225Khixrdchr Result EncounterCorey Bj DO Work Phone: noms External Department UnsolicitedStart: 06-05-2023 End: 63-80-9688Tvwyfxkqx Result EncounterCorey Bj DO Work Phone: noms External Department UnsolicitedStart: 06-05-2023 End: 65-49-7090siroxalowjGABYY FAZIONot AvailableStart: 05-29-2023 End: 04-04-1608Rpgcdafng Result EncounterCorey Bj DO Work Phone: noms External Department UnsolicitedStart: 05-29-2023 End: 51-77-7539Jxkqburud Result EncounterCorey Bj DO Work Phone: noms External Department UnsolicitedStart: 05-29-2023 End: 67-14-0543kowzfzravtBTU RAMEYNot AvailableStart: 05-22-2023 End: 69-12-4519Kczgqmutd Result EncounterCorey Bj DO Work Phone: NOYM External Department UnsolicitedStart: 05-22-2023 End: 19-33-3739Wfequtxoe Result EncounterCorey Bj DO Work Phone: NOSM External Department UnsolicitedStart: 05-16-2023 End: 54-75-6912Szjocamgl Result EncounterCorey Bj DO Work Phone: NONP External Department UnsolicitedStart: 05-16-2023 End: 97-88-4986Tzlovlouq Result EncounterCorey Bj DO Work Phone: NOHQ External Department UnsolicitedStart: 05-16-2023 End: 42-95-0321mppjlzrpqlCANPU FAZIONot AvailableStart: 05-08-2023 End: 34-49-7910Sjgxgxggk Result EncounterCorey Bj DO Work Phone: NOGF External Department UnsolicitedStart: 05-08-2023 End: 87-90-7798Gqigexpvb Result EncounterCorey Bj DO Work Phone: NOKD External Department UnsolicitedStart: 05-02-2023 End: 34-49-8825Alrekmyfy Result EncounterCorey Bj DO Work Phone: NOER External Department UnsolicitedStart: 05-02-2023 End: 74-86-2244Qthihifkf Result EncounterCorey Bj DO Work Phone: NORJ External Department UnsolicitedStart: 05-01-2023 End: 69-78-7207Ljjdiuomj Result EncounterCorey Bj DO Work Phone: NOJT External Department UnsolicitedStart: 05-01-2023 End: 64-47-4209Ycmqxjhtc Result EncounterCorey Bj DO Work Phone: NOUQ External Department UnsolicitedStart: 05-01-2023 End: 02-66-6087jnzuuoaoatVMSBX FAZIONot AvailableStart: 04-17-2023 End: 37-13-3922aadgkelacxKLSWB FAZIONot AvailableStart: 04-04-2023 End: 22-05-0466albqjoqzmgHSQ RAMEYNot AvailableStart: 03-18-2023 End: 74-82-0568Tuohwkfxg Result EncounterCorey Bj DO Work Phone: NORP External Department UnsolicitedStart: 03-18-2023 End: 76-99-8373Lxsfqafbx Result EncounterCorey Bj DO Work Phone: NOQU External Department UnsolicitedStart: 03-14-2023 End: 35-05-0011plwxeqbfhkEMGBR FAZIONot AvailableStart: 03-14-2023 End: 85-45-8103Islupfuf flow sheetCorey Bj DO Work Phone: [facility] BCP OBComment on above:Second trimester Start: 02-15-2023 End: 19-35-2556Zkapwmobt Result EncounterCorey Bj DO Work Phone: noms External Department UnsolicitedStart: 02-15-2023 End: 93-43-8258Kxtgcgvdi Result EncounterCorey Bj DO Work Phone: noms External Department UnsolicitedStart: 02-14-2023 End: 08-07-2798ekroxsudtvIGC RAMEYNot AvailableStart: 01-16-2023 End: 51-54-3761acnkhzpaqnGELRK FAZIONot AvailableStart: 11-17-2022 End: 94-70-6496Znsyebkqo Result EncounterCorey Bj DO Work Phone: noms External Department UnsolicitedStart: 11-17-2022 End: 21-62-4293Myyabnymz Result EncounterCorey Bj DO Work Phone: noms External Department UnsolicitedStart: 05-14-2022 End: 05-13-6328tzeqjqjvgaQLF SANGEETHA .Facility:X6Gouzy: 12-26-2021 End: 20-37-4154Ovq Drop offPreet Gudiamiela [facility] Start: 12-26-2021 End: 34-24-3123Fufhrwc encounter procedurePreet Gudimella [phone]-WwsyqUpper [facility] [place] Start: 11-12-2016 End: 85-14-7336QflomyzdvdDTZRQIZ ([facility]) [facility]tart: 11-12-2016 End: 77-44-5605OswlltvgzgSVKEKAI ([facility]) [facility] Procedures DateProcedureProcedure DetailPerforming ClinicianStart: 12-43-7385MDT,APTIMA HPV,AGE GDLNCorey Bj DO Work Phone: Start: 06-66-5928Jejamowmydw observation [Identifier] in Cervix by Sonu Pichardo AUDITING CODER Work Phone: Start: 69-43-2221WA OB GROWTHCorey Bj DO Work Phone: Start: 98-37-8760UL OB BPP W NON-STRESSCorey Bj DO Work Phone: Start: 95-01-8676PA OB BPP W NON-STRESSCorey Bj DO Work Phone: Start: 50-79-3603GM OB BPP W NON-STRESSCorey Bj DO Work Phone: Start: 60-78-6572CS OB BPP W NON-STRESSCorey Bj DO Work Phone: Start: 52-19-4350OK OB BPP W NON-STRESSCorey Bj DO Work Phone: Start: 90-19-9793YH AMNIOTIC FLUID VOLUMECorey Bj DO Work Phone: Start: 23-07-8107XZ OB GROWTHCorey Bj DO Work Phone: Start: 08-16-5199YO for multiple gestation limitedCorey Bj DO Work Phone: Start: 42-85-6200QX OB INCOMPLETE ANATOMYCorey Bj DO Work Phone: Start: 39-74-4085Stcyi dip stick/tablet rgnt non-auto w/o micrscpCorey Bj DO Work Phone: Start: 70-04-6121NM OB ANATOMYCorey Bj DO Work Phone: Start: 08-16-5852GZ OB TRANSVAGINALCorey Bj DO Work Phone: Start: 17-67-2102XE OB TRANSVAGINALCorey Bj DO Work Phone: Start: 37-48-8518Oatlafqtztv observation [Identifier] in Cervix by Cyto stainCorey Bj GARCIA Work Phone: Start: 43-65-5751Awiukue excisionPreet Zeny Plan of Treatment DateCare ActivityDetailAuthorStart: 72-50-4152Tunphgwsi for malignant neoplasm of cervixNOMS HealthcareStart: 70-66-0097Xutqcqcue for malignant neoplasm of cervixNOMS HealthcareStart: 12-16-2024 End: 21-81-3748Gkfraws encounter wkamftecf19/05/2025 9:00 AM EST Office Visit [facility] BEN[facility]TG[facility] [address] [phone] Vanessa Pichardo, AUDITING CODER [address] [place] [phone] NOMVern [place] OBGYNStart: 11-05-2024 End: 47-40-5727Wnyjnoe encounter yhtpoqpie03/25/2025 8:30 AM EDT Office Visit [facility] [address] [place] [phone] Shay Lorenzo DO [address] [place] [address] [facility] BCP OBStart: 91-32-1091GANCN-19 Vaccine ( season)COVID-19 Vaccine ( season)[facility] HealthcareStart: 10-12-2024 Influenza vaccinationInfluenza Vaccine (#1)[facility] HealthcareStart: 11-01-2023 Screening for malignant neoplasm of cervixHPV/CotestNOMS HealthcareStart: 37-64-1259Okosfonpc vaccinationInfluenza Vaccine (#1)[facility] HealthcareStart: 04-04-2023 End: 05-40-2739Wkejesv encounter bajzltknc20/22/2024 9:10 AM EST Routine [facility] [address] [place] [address] Pretty Escobar PA [address] [place] [address] [place] [address] [facility] BCP OBStart: 74-67-2981Vplczxynz vaccinationInfluenza Vaccine (#1)[facility] HealthcareCytology Cervical or vaginal smear or scraping studyPap Smear Pathology and Cytology Routine Well woman exam with routine gynecological exam Ordered: 11/04/2023[facility] Work Phone: comment on above:Ordered: 11/04/2023ytology Cervical or vaginal smear or scraping studyPap Smear Pathology and Cytology Routine Well woman exam with routine gynecological exam Ordered: 12/16/2024[facility] Work Phone: comment on above:Ordered: 12/16/2024Human papilloma virus DNA [Presence] in Unspecified specimen by Probe with amplificationHPV DNA probe, amplified Microbiology Routine Well woman exam with routine gynecological exam Ordered: 11/04/2023[facility] HospitalComment on above:Ordered: 11/04/2023 Human papilloma virus DNA [Presence] in Unspecified specimen by Probe with amplificationHPV DNA probe, amplified Microbiology Routine Well woman exam with routine gynecological exam Ordered: 12/16/2024[facility] HospitalComment on above: Ordered: 12/16/2024 Immunizations Immunization DateImmunizationNotesCare JkusiradOwinhmof78-80-4590GLJT-LdP-9 (COVID-19) wLOS-5269 vaccinePreet Gudimella [phone]-MsigyClermont County Hospital 34-18-1026fwewbkeai virus vaccine, unspecified formulationCorey Bj DO Work Phone: [facility] HospitalKlyjorybyu76-45-5058fwtsngplk, injectable, quadrivalent, contains preservativePreet Gudimella [phone]-BhxwiClermont County Hospital 81-84-3862fordgnq toxoid, reduced diphtheria toxoid, and acellular pertussis vaccine, adsorbedPreet Gudimella 933-2639Gvdeee-HlfuuClermont County Hospital NEGATED: Highlighted row has not occurred!55-02-5080rvrcigntp virus vaccine, unspecified formulationZoyamami Matamorosamienoy [phone]-RqxpyClermont County Hospital Payers DatePayer CategoryPayerPolicy [id number] Health Insurance [id number] [employer] Blue ShieldBCBS [id number] BCBS [id number] 2021-Present [phone] [address] 1.2.840.680573.1.13.693.2.7.3.553[id number] 2..1.576107.3.579.2.54393-23-8312Zrtizct1474885 2..1.670580.3.579.2.112876-09-3541Xeafugv3221729 2..1.364692.3.579.2.160378-38-6831Flmdzwm8413870 2..1.415556.3.579.2.300196-63-5352Ithgtzu8625917 2..1.743909.3.579.2.356660-90-1550Pomvldg1339560 2.16.840.1.501449.3.579.2.918402-49-3184Fxwwtbs8818869 2.16.840.1.568847.3.579.2.494348-70-4068Vfmyuub4732674 2.16.840.1.765407.3.579.2.347211-41-5258Nfhljrk4857268 2.16.840.1.321291.3.579.2.474072-17-8083Pfdddzr9634522 2..840.1.882522.3.579.2.399645-76-7780Bsmmxwg2258295 2.16.840.1.614388.3.579.[id number] 2.840.1.506846.3.579.2.747607-16-3646Ltilnbx9403582 2.16.840.1.737916.3.579.2.231902-61-5587Tnbzhrm122397 2.16.840.1.082457.3.579.2.330878-57-9830Uwozxwc760504 2.16.840.1.224182.3.579.2.612711-02-5493Pasauvz83893622 2.840.1.135203.3.579.2.88757-54-5233Egkxpcp19439953 2.840.1.666459.3.579.2.50015-40-1044Mxzgzmx40342022 2.840.1.010696.3.579.2.43462-22-6012ZatshlyCGGZE1768807CtrlozrGWTAUMGLRDPM Social History DateTypeDetailFacilityStart: 12-26-2021 End: 99-55-4126Rnvhfhe smoking statusEx-smoker (finding)[facility] HospitalComment on above:deniesdeniesStart: 11-09-2022 Tobacco smoking statusNeverClermont County Hospital Comment on above:deniesdeniesSex Assigned At BirthFemalAdams County Regional Medical CenterTobacco smoking status NHISTobacco smoking consumption unknownNOID HealthcareStart: 24-88-5392VfhaylxtgOLXA HealthcareStart: 61-58-4783Mxr Assigned At BirthNot on fileNOID HealthcareSexual OrientationProtestant Deaconess Hospital Start: 46-67-4002IorXunrvd (finding)[facility] Centertart: 12-31-2022 End: 38-03-6723Ohjeqzho to SARS-CoV-2 (event)Not [facility] Functional Status ZassBzgqalpnppDxmvazKlzuyhsg94-85-2738Ygaguozcbq StatusN/[facility] Zpxk57-02-7218Hiatwgzauf StatusN/[facility] Clinical Notes 12-26-2021 to 12-16-2024 Note Date & UexzIcpdIokwliae89-74-8408 History of Present illness Narrative* Tesha Fisher MA - 12/16/2024 9:00 AM [...] nursing note reviewed. Exam conducted with a post acute care nurse present. Vitals: Estimated body mass index is 33.12 kg/m as calculated from the following: Height [...] of: Vanessa Pichardo NP documented in this encounterRay County Memorial HospitalAhivbtdnoe92-10-4914 Evaluation + Plan note Extracted from:Title:ED NoteAuthor:Bertha GARCIAJuan ManuelDate:07/13/24 Chest pain (R07.9: Chest laurence n, unspecified) High blood pressure (I10: Essential (primary) hypertension) Orders: ketorolac, 30 mg = 1 mL, Injection, IV, Once, Stop date 07/13/24 11:49:00 EDT, STAT, Start date 07/13/24 11:49:00 EDT, 07/13/24 11:49:00 EDT Basic Metabolic Panel Beta hCG Qual CBC w/ Auto Diff ECG 12 Lead Adult ED Cardiac Monitoring eGFR Hepatic Function Panel Lipase Level Oxygen Saturation Oxygen Therapy PT & PTT Saline Lock Insert Troponin 0 Hr. Troponin 1 Hr. XR Chest Single View [facility] 06-02-2025 Hospital Discharge instructions Follow Up Care 07/13/2024 10:59:03 With:Alexandra Lopez Address: [address] [place] [address]- Business (1) When:07/14/2024 14:04:12 [facility] 02-05-2025 Hospital Discharge instructions Follow Up Care 03/18/2024 10:13:45 With:Alexandra Lopez DO, FAM Address: [address] [place] [address]- When:7 to 10 days only if needed [facility] 09-23-2024 History of Present illness Narrative* Priscilla Panda LPN - 11/04/2023 9:20 AM EDT Reason for Appointment: Patient ID: Rakesh Cardenas is a 28 y.o. female who presents for Well Women Visit Patient presents today for Annual Exam. MEDICATIONS No current outpatient medications ALLERGIES Allergies Allergen Reactions Sulfa Antibiotics Unknown Other Reaction(s): hives PROBLEMS Active Ambulatory Problems Diagnosis Date Noted No Active Ambulatory Problems Resolved Ambulatory Problems Diagnosis Date Noted No Resolved Ambulatory Problems No Additional Past Medical History HISTORY PAST MEDICAL HISTORY SOCIAL HISTORY History reviewed. No pertinent past medical history. Social History Tobacco Use Smoking status: Not [...] appearance. She is well-developed. Genitourinary: Vulva normal. Breasts: Breasts are soft. Right: Normal. Left: Normal. Cardiovascular: Rate and Rhythm: Normal rate and [...] nursing note reviewed. Exam conducted with a post acute care nurse present. Vitals: Estimated body mass index is 33.12 kg/m as calculated from the following: Height as of 08/04/24: 5' 8 . Weight as of this encounter: 217 lb 12.8 oz. BP: 120/70 No LMP recorded. ASSESSMENT & PLAN ICD-10-CM 1. Well woman exam with routine [...] for annual unless needed otherwise. Documented by Priscilla Panda LPN on behalf of: Shay Lorenzo DO documented in this encounterRay [facility] [id number] History of Present illness Narrative* Priscilla Panda LPN - 03/14/2023 9:20 AM EST Reason for Appointment: Patient ID: Rakesh Cardenas is a 27 y.o. female who [...] nursing note reviewed. Exam conducted with a post acute care nurse present. Vitals: Estimated body mass index is [...] by Priscilla Panda LPN on behalf of: Shay Lorenzo DO documented in this encounterRay County Memorial [id number] Evaluation + Plan note Diagnostic Tests Pending * [facility] No data available for this section [facility] [place] Evaluation note* Diagnosis Second trimester state, incidental [facility] Diagnosis Well woman exam with routine gynecological exam Routine gynecological examination [facility] Diagnosis Well woman exam with routine gynecological exam Routine gynecological examination [facility] No data available for this section [facility] [place] Progress note No data available for this section [facility] [place] Summary Purpose Family History No Family History Records FoundNo Family History Records FoundNo Family History Records FoundNo Family History Records Found No data available for this section No Family History Records FoundNo Family History Records FoundNo Family History Records FoundNo Family History Records FoundNo Family History Records FoundNo Family History Records FoundNo Family History Records FoundNo Family History Records FoundNo Family History Records Found No data available for this section No Family History Records Found Advance Directives No [...] section and content) DATE CREATED AUTHOR 08/06/2017 [facility] DATE CREATED AUTHOR AUTHOR'S ORGANIZ ATION 08/17/2017 [facility] DATE CREATED AUTHOR AUTHOR'S ORGANIZ ATION 05/21/2022 [facility] DATE CREATED AUTHOR AUTHOR'S ORGANIZ ATION 11/05/2023 [facility] DATE CREATED AUTHOR AUTHOR'S ORGANIZ ATION 07/13/2024 [facility] DATE CREATED AUTHOR AUTHOR'S ORGANIZ ATION 07/14/2024 [facility] DATE CREATED AUTHOR AUTHOR'S ORGANIZ ATION 07/17/2024 [facility] Patient Care team informatio n (unrecognized section and content) Team MemberRelationshipSpecialtyStart DateEnd Date Alexandra Lopez MD [address] [facility] [place] [address] PCP - [facility] Pmhypkeh04/6/23Team MemberRelationshipSpecialtyStart DateEnd Date Alexandra Lopez MD [address] [place] [address] PCP - [facility]11/16/22Team MemberRelationshipSpecialtyStart DateEnd Date Alexandra Lopez MD [address] [place] [address] PCP - [facility]11/16/22Team MemberRelationshipSpecialtyStart DateEnd Date Alexandra Lopez MD [address] [place] [address] PCP - [facility]11/16/22Team MemberRelationshipSpecialtyStart DateEnd Date Alexandra Lopez MD PCP - [facility]11/16/22Team MemberRelationshipSpecialtyStart DateEnd Date Alexandra Lopez MD PCP - [facility]11/16/22Team MemberRelationshipSpecialtyStart DateEnd Date Alexandra Lopez MD [address] [place] [address] PCP - [facility]11/16/22Team MemberRelationshipSpecialtyStart DateEnd Date Alexandra Lopez MD [address] [place] [id number] PCP - GeneralFamily Fcshtpzg17/6/23 Reason for Visit (unrecogniz ed section and content) ReasonCommentsRoutine VisitReasonCommentsWell Women VisitReasonComments Gynecologic Exam FOR RECORDS PERTAINING TO PATIENTS WHO ARE [...] BE BASED ON THE PRIMARY CLINICAL RECORDS. [facility] trusteds[employer] [facility]. provides no warranty or guarantee of the accuracy or completeness of information in this document.
[2024-12-18 15:08] LABS: Age Gdln ACOG Testing Note (.); IGP, Aptima HPV, rfx 16/18,45 Note (.)
== END 2024-12-16 15:04 | disposition home or self-care (01) ==
LOC: LAB 15:03
PROVIDERS: Visit Provider Nurse Practitioner Family
DX: Z01.419 Encounter for gynecological examination (general) (routine) without abnormal findings (principal)
CPT/HCPCS: 87624; 88175